=== PATIENT | male | born 1945 | race Caucasian/White ===

== ENCOUNTER → 2017-05-08 | Day surgery (SDC) | payer MEDICARE ==
[~2017-05-08] MED LIST: ALEN70TA5 PO; ASPI-630 PO; ATOR10TA60 PO; AZAT50TA20 PO; CEPH-264 PO; FAMO20TA38 PO; FOLI200T12 PO; HYDR25TA9 PO; INSU100I17 SQ; INSU100V31 SQ; INSU100V8 SQ; IV RINGERS,LACTATED 1000ML 1,000 ML IV SCH; LEVO88TA4 PO; LORA10TA3 PO; METO100T2 PO; PRED-299 PO; PROPOFOL 20 ML IV ONE; TACR1CAP2 PO
--- NOTE | 2017-05-08 11:14 | PDOC1 ---
HISTORY & PHYSICAL H&P Please see [facility]. SAMANTHA HIGUERA MD May 08, 2017 11:14
[2017-05-08 11:33] VITALS: BP 126/58
== END | disposition home or self-care (01) ==
LOC: ENDOS 10:59 → EDSTATUS 11:30
PROVIDERS: ATTEND Internal Medicine Gastroenterology
DX: K21.0 Gastro-esophageal reflux disease with esophagitis (principal); K22.10 Ulcer of esophagus without bleeding; K22.8 Other specified diseases of esophagus; E78.00 Pure hypercholesterolemia, unspecified; I48.91 Unspecified atrial fibrillation; I12.9 Hypertensive chronic kidney disease with stage 1 through stage 4 chronic kidney disease, or unspecified chronic kidney disease; E11.22 Type 2 diabetes mellitus with diabetic chronic kidney disease; N18.9 Chronic kidney disease, unspecified; E03.9 Hypothyroidism, unspecified; Z94.0 Kidney transplant status; Z87.01 Personal history of pneumonia (recurrent); Z86.14 Personal history of Methicillin resistant Staphylococcus aureus infection
CPT/HCPCS: 43235; 82962; J2704

== ENCOUNTER 2017-06-22 04:47 | Inpatient (IN) | payer MEDICARE ==
[2017-06-22] VITALS (17 sets, daily range): BP systolic 66–160; BP diastolic 28–80
[~2017-06-22] VITALS: Ht 188 cm; Wt 168.8 kg
[~2017-06-22 04:47] MED LIST changes: -IV RINGERS,LACTATED 1000ML 1,000 ML IV SCH; -METO100T2 PO; +METO100T7 PO; -PROPOFOL 20 ML IV ONE
[2017-06-22] MEDS ORDERED: ETOMIDATE 20 MG/10 ML VIAL. IV ONE (05:47)
[2017-06-22] MEDS ORDERED: ROCURONIUM 50 MG/5 ML VIAL. ONE (05:48)
[2017-06-22 05:53] LABS: HCO3 ABG 33 mmol/L (21-28); PO2 ABG 244 mmHg (65-108); SAT O2 ABG 99 % (92-99)
[2017-06-22 05:55] LABS: PCO2 ABG 85 mmHg (35-46)
[2017-06-22] MEDS ORDERED: PROPOFOL 50 ML IV ONE (06:15)
[2017-06-22] MEDS: PROPOFOL 100 ML IV PRN (06:30)
--- NOTE | 2017-06-22 06:36 | PHYS DOC ---
Past Medical History Past Medical History: Diabetes-Type II, Hypertension, Other Additional Past Medical Histor: obese, dialysis in past, h/o kidney fail., lymphodema, bilat LL trauma Past Surgical History: Other Additional Past Surgical Histo: leg sx secondary to trauma, kidney transplant Alcohol Use: None Drug Use: None Adult General Chief Complaint Chief Complaint: ALTERED MENTAL STATUS HPI HPI Patient is a 72 year old male who presents to the emergency department unresponsive. Patient was brought by EMS from [facility] after staff found him to be unresponsive. EMS noted that the patient had shallow breathing and started bagging the patient in route. They also administered 4 mg of Narcan to the patient with no effect. The patient is currently unresponsive to deep sternal rub and provides no history. EMS stated that the patient was not on any known narcotic medication per their knowledge. Patient has significant lymphedema and does not have IV access at this time. Patient cardiac rhythm was noted to be atrial fibrillation for which EMS states the patient has a chronic history. Review of Systems Review of Systems Unable to obtain from patient All other systems were reviewed and found to be within normal limits, except as documented in this note. Allergies Allergies Allergies Coded Allergies Type Severity Reaction Last Updated Verified No Known Drug Allergies 05/08/17 No Physical Exam Physical Exam Constitutional: Obtunded, gag reflex intact, receiving assisted ventilations, normotensive. [] HENT: Normocephalic, atraumatic, bilateral external ears normal, oropharynx moist, no oral exudates, nose normal. [] Eyes: Pinpoint pupils, conjunctiva normal, no discharge. [] Neck: Trachea midline, supple, no stridor. [] Cardiovascular: Irregular rhythm, normal rate, no murmur [] Lungs & Thorax: Shallow respirations, rales bilaterally, no wheezes[] Abdomen: Bowel sounds normal, soft, no tenderness, no masses, no pulsatile masses. [] Skin: Warm, dry, no erythema, no rash. [] Extremities: Left tioek-ovh-dnrh amputation, chronic lymphedematous changes in the right lower extremity. [] Neurologic: Obtunded, withdraws slightly to deep painful stimulus. [] Current Patient Data Vital Signs Signs reviewed, significant for respirations of 10 and shallow, patient was afebrile and normotensive Lab Values Laboratory Tests Test 06/22/17 05:04 O2 Saturation 99 % (92-99) Arterial Blood pH 7.20 (7.35-7.45) *L Arterial Blood pCO2 at Patient Temp 85 mmHg (35-46) *H Arterial Blood pO2 at Patient Temp 244 mmHg (65-108) H Arterial Blood HCO3 33 mmol/L (21-28) H Arterial Blood Base Excess 3 mmol/L (-3-3) FiO2 100.0 EKG EKG Rhythm strip interpretation: Heart rate 67, atrial fibrillation, wide QRS complex[] Radiology/Procedures Radiology/Procedures One view AP chest x-ray interpreted by me: Edema in bilateral lung bases, central line in adequate position, ET tube in adequate position KUB: Nasogastric tube in adequate position[] Course & Med Decision Making Course & Med Decision Making Pertinent Labs and Imaging studies reviewed. (See chart for details) Patient had no IV access upon arrival. I placed an intraosseous line into the right humerus for initial access. Patient was intubated as outlined in the procedure note and a central line was placed as outlined in the procedure note. The patient patient's ABG showed evidence of acute hypercapnic respiratory failure. The patient's level of consciousness improved after being placed on the ventilator and patient was placed on a propofol drip for sedation. Patient' s vital signs have stabilized at time of disposition. The patient will be admitted to ICU for further care. I spoke with Dr. Mcgarry who accepted care patient in hospital. A consult was placed to Dr. Amato for ventilator management. Dragon Disclaimer Dragon Disclaimer This electronic medical record was generated, in whole or in part, using a voice recognition dictation system. Central Line Placement Proc Central Line Indication: Vascular access Consent: Consent was not obtained due to the emergent necessity for the procedure. Procedure: The patient was positioned appropriately and the skin over the right internal jugular vein was prepped and draped in a sterile fashion. Local anesthesia was used. Ultrasound guidance utilized. A large bore needle was used to identify the vein. A guide wire was then inserted into the vein through the needle. A triple lumen catheter was then inserted into the vessel over the guide wire using the Seldinger technique. All ports showed good, free flowing blood return and were flushed with saline solution. The catheter was then securely fastened to the skin with sutures and covered with a sterile dressing. A post procedure X-ray was ordered. The patient tolerated the procedure well. Complications: none. [] Intubation Procedure Intub Indication: Respiratory failure Consent: Unable to give consent due to emergent nature. Medications Used: see nursing note Procedure: The patient was placed in the appropriate position. Intubation was performed under direct laryngoscopy with placement of a 7.5 endotracheal tube. Secured at 22 cm at the lip. Initial confirmation of placement included bilateral breath sounds, tube fogging, adequate chest rise, adequate pulse oximetry reading. A chest x-ray to verify correct placement of the tube showed appropriate tube position. The patient tolerated the procedure well. Complications: none. Departure Departure Impression: Primary Impression: Acute respiratory failure Additional Impressions: Pulmonary edema Acute encephalopathy Respiratory acidosis Disposition: ADMITTED INPATIENT Admitting Physician: Jessica Mcgarry Condition: CRITICAL Referrals: BUBBA DOMINIQUE MD (PCP) Problem Qualifiers Primary Impression: Acute respiratory failure Respiratory failure complication: hypoxia and hypercapnia Qualified Codes: J96.01 - Acute respiratory failure with hypoxia; J96.02 - Acute respiratory failure with hypercapnia Additional Impressions: Pulmonary edema Chronicity: acute Qualified Codes: J81.0 - Acute pulmonary edema YURY EVANS MD Jun 22, 2017 06:36
[2017-06-22] MEDS ORDERED: fentaNYL PF VIAL 100 MCG/2 ML VIAL IV PRN (06:45)
[2017-06-22] MEDS ORDERED: IV NORMAL SALINE 1000ML BAG 1,000 ML IV SCH (06:45)
[2017-06-22] MEDS ORDERED: ACETAMINOPHEN 325 MG TABLET. PO PRN (06:45)
[2017-06-22] MEDS ORDERED: ONDANSETRON PF 4 MG/2 ML VIAL. IV PRN (06:45)
--- NOTE | 2017-06-22 07:11 | RAD ---
Portable abdomen, 06/22/2017: History: Check NG tube placement An AP view of the left upper quadrant of the abdomen demonstrates an NG tube extending into the distal body of the stomach. Slightly prominent gas-filled small bowel loops are present in the left midabdomen. This limited exam is otherwise unremarkable. IMPRESSION: The NG tube extends into the body of the stomach.
[2017-06-22] MEDS ORDERED: MIDAZOLAM HCL/PF 2 MG/2 ML VIAL. ONE (07:17)
--- NOTE | 2017-06-22 07:20 | RAD ---
Portable chest, 06/22/2017: History: Check ET tube placement Comparison is made to a study from 06/25/2015. The patient positioning is kyphotic with rotation to the left. An ET tube has been inserted with its tip located approximately 6 cm above the liliya near the thoracic inlet. An NG tube extends into the stomach. A right jugular central venous catheter remains in place extending into the superior vena cava. The heart is mildly enlarged. There is extensive calcific plaquing of the aorta. There is loss of vascular margination with patchy pulmonary infiltrates. There is obscuration of the lateral costophrenic angles bilaterally compatible with pleural fluid. A moderate left apical opacity probably represents pleural fluid. IMPRESSION: 1. Tube positions as described above. 2. Vascular congestion with patchy pulmonary infiltrates most compatible with pulmonary edema. A component of pneumonia cannot be excluded. 3. Bilateral pleural effusions, left greater than right.
[2017-06-22] MEDS ORDERED: MIDAZOLAM HCL/PF 2 MG/2 ML VIAL. IV ONE (07:30)
--- NOTE | 2017-06-22 07:35 | EKG ---
[facility] [address] [place] [address] Test Date: 2017-06-22 Test Time: 06:45:13 Pat Name: JACQUES STUBBS Department: Room: 115 1 Gender: M Craft Superintendent: : 1945 Requested By: YURY EVANS Order Number: [id number] Reading MD: Aneesh Mcfarland MD Measurements Intervals Counselor Rate: 52 P: MN: QRS: -30 QRSD: 130 T: 109 QT: 488 QTc: 456 Interpretive Statements POSSIBLE V-PACING CANNOT RULE OUT AFIB Electronically Signed On 06-26-2017 15:34:16 ZONING ADMINISTRATOR by Aneesh Mcfarland MD
--- NOTE | 2017-06-22 08:07 | RAD ---
CT of the head without contrast, 06/22/2017: History: Altered mental status, hypertension There is mild cerebral atrophy. A small lucency in the superior aspect of left basal ganglia is compatible with a lacunar infarct or prominent perivascular space. The ventricles are within normal limits in size. There is no shift of the midline structures. There is no evidence of acute intracranial hemorrhage or mass effect. IMPRESSION: 1. Small old lacunar infarct in left basal ganglia. 2. Mild cerebral atrophy. 3. No acute intracranial abnormality is detected. PQRS Compliance Statement: One or more of the following individualized dose reduction techniques were utilized for this examination: 1. Automated exposure control 2. Adjustment of the mA and/or kV according to patient size 3. Use of iterative reconstruction technique
[2017-06-22] MEDS ORDERED: NOREPINEPHRIN PREMIX 250 ML IV ONE (08:27)
[2017-06-22] MEDS ORDERED: NOREPINEPHRIN PREMIX 250 ML IV PRN (08:30)
[2017-06-22 09:10] LABS: BASO # 0.1 x10^3/uL (0.0-0.2); BASO % 1 % (0-3); EOS % 0 % (0-3); HEMATOCRIT 32.6 % (39.0-53.0); HEMOGLOBIN 10.4 g/dL (13.0-17.5); LYMPH # 1.2 x10^3/uL (1.0-4.8); LYMPH % 14 % (24-48); MEAN CORPUSCULAR HEMOGLOBIN 33 pg (25-35); MEAN CORPUSCULAR HGB CONC 32 g/dL (31-37); MEAN CORPUSCULAR VOLUME 102 fL (79-100); MONO % 7 % (0-9); NEUT % 78 % (31-73); PLATELET COUNT 326 x10^3/uL (140-400); RED CELL DISTRIBUTION WIDTH 21.5 % (11.5-14.5); WHITE BLOOD COUNT 8.8 x10^3/uL (4.0-11.0)
[2017-06-22 09:19] LABS: CALCIUM 8.7 mg/dL (8.5-10.1); CREATININE 1.6 mg/dL (0.7-1.3); GFR 42.5; POTASSIUM 4.7 mmol/L (3.5-5.1)
[2017-06-22 09:24] LABS: ALBUMIN 1.9 g/dL (3.4-5.0); ALBUMIN/GLOBULIN RATIO 0.7 (1.0-1.7); MAGNESIUM 1.5 mg/dL (1.8-2.4); TOTAL BILIRUBIN 0.5 mg/dL (0.2-1.0); TOTAL PROTEIN 4.7 g/dL (6.4-8.2)
[2017-06-22 09:34] LABS: INR 1.2 (0.8-1.1); PROTHROMBIN TIME PATIENT 14.2 SEC (11.7-14.0)
[2017-06-22 10:24] LABS: CREATINE KINASE 19 U/L (39-308)
[2017-06-22 10:25] LABS: CKMB MASS < 0.5 ng/mL (0.0-3.6)
[2017-06-22] MEDS ORDERED: IV 1/2 NORMAL SALINE 1,000 ML IV ONE (10:45)
[2017-06-22] MEDS ORDERED: PIP/TAZO PER PHARMACY MC PRN (11:00)
--- NOTE | 2017-06-22 11:16 | CONS ---
DATE OF CONSULTATION: ATTENDING PHYSICIAN: Jessica Mcgarry MD REASON FOR CONSULTATION: Respiratory failure. HISTORY OF PRESENT ILLNESS: The patient is a 72-year-old male who has been in a rehab facility. He was previously at [facility] for 6 weeks and was treated for MRSA infection. The patient has history of kidney failure, lymphedema and has been on dialysis in the past. He was brought in by EMS from [facility] after he was found to be unresponsive. The patient was having shallow breathing and he was given Narcan without any effect. He was unresponsive to deep sternal rub. The patient was intubated and post-intubation ABGs showed a pH of 7.20, pCO2 of 85 and a pO2 of 244 on 100% FiO2. He is currently on assist control mode and FiO2 of 50%. Repeat ABGs have been ordered. I have reviewed patient's chest x-ray and it shows evidence of bilateral infiltrates. There is also volume loss in the left upper lobe, which could be due to a mucus plug. The possibility of congestive heart failure versus pneumonia is a consideration. Clinically he appeared to be dry as his sodium was high at 151. He was hypotensive. He required actually 2 liters of IV fluid bolus to raise his blood pressure up and he initially was on 10 mcg of Levophed, but now down to 5 mcg of Levophed. His urine output is still not the best. His BUN is 12 and a creatinine of 1.6. I have been asked to see him for further evaluation. His family is at the bedside including and the daughter. The patient has no history of tobacco use. No prior history of heart problems except for atrial fibrillation. PAST MEDICAL HISTORY: History of diabetes, history of hypertension, history of obesity, history of renal failure and dialysis in the past. History of lymphedema, lower extremity and left knee amputation. PAST SURGICAL HISTORY: As discussed above including kidney transplant. ALLERGIES: None. CURRENT MEDICATIONS: Reviewed as listed in the MRAD including vasopressor. He is not on any antibiotics. REVIEW OF SYSTEMS: Unable to obtain from the patient as he is on the ventilator. SOCIAL HISTORY: Nonsmoker. PHYSICAL EXAMINATION: GENERAL: He is intubated and sedated with Versed. Blood pressure on 5 mcg of Levophed. VITAL SIGNS: Pulse ox 100%. EYES: Sclerae nonicteric. NECK: Supple. LUNGS: With diminished breath sounds bilaterally. CARDIOVASCULAR: Regular rate. ABDOMEN: Soft, obese. EXTREMITIES: There is right lower extremity lymphedema and left knee amputation. LABORATORY DATA: Reviewed. White cell count 8.8, hemoglobin 10.4 and platelets are 326. ABGs as discussed in my history of present illness. BUN 12, creatinine 1.6. Albumin is 1.9. IMPRESSION: 1. Acute hypercapnic respiratory failure secondary to multifactorial etiologies including acute toxic and metabolic encephalopathy, shock and suspected congestive heart failure versus pneumonia. 2. Abnormal chest x-ray with bilateral infiltrates with some volume loss in the left upper lobe. I suspect it could be a combination of congestive heart failure versus pneumonia and may have a mucus plug in the left upper lobe. 3. History of renal transplant and acute kidney injury. 4. History of methicillin-resistant Staphylococcus aureus infection. 5. Hypernatremia, probably related to volume contraction. 6. Severe protein-calorie malnutrition. 7. No significant history of tobacco use. RECOMMENDATIONS: 1. At this time, continue with present assist control mode. Follow ABGs and make necessary adjustments. 2. Obtain echocardiogram to assess for LV function. 3. Continue present Levophed for shock and hold off on IV fluids until we get an echocardiogram to make sure he does not have cardiomyopathy. It could be combination of septic/cardiogenic shock. 4. Obtain noncontrast CT chest to better assess for lung infiltrates. 5. He would require mechanical ventilation for at least 3-4 days. 6. We will initiate antibiotics workup is pending. 7. Stress ulcer prophylaxis and DVT prophylaxis. 8. Discussed with patient's family and discussed with Dr. Chiu. Critical care time 45 minutes. MARKY HUSSEIN MD DR: ROSALIA/miriam JOB#: [id number] / [id number]
[2017-06-22] MEDS ORDERED: VANCOMYCIN 2 GM in IV DEXTROSE 5 %-0.2 % NACL 500 ML IV ONE (11:30)
[2017-06-22] MEDS: CETIRIZINE HCL 10 MG TABLET. PO SCH (12:00)
[2017-06-22] MEDS ORDERED: METOPROLOL TART IMMED RELEASE 50 MG TABLET. PO SCH (12:00)
[2017-06-22] MEDS: ATORVASTATIN CALCIUM 10 MG TABLET. PO SCH (12:00)
[2017-06-22 12:34] LABS: HCO3 ABG 30 mmol/L (21-28); PCO2 ABG 51 mmHg (35-46); PH ABG 7.38 (7.35-7.45); PO2 ABG 84 mmHg (65-108); SAT O2 ABG 97 % (92-99)
[2017-06-22 12:36] LABS: FIO2 ABG 40
--- NOTE | 2017-06-22 12:39 | HP ---
ADMIT DATE: 06/22/2017 CHIEF COMPLAINT: Respiratory failure, mental status changes. HISTORY OF PRESENT ILLNESS: The patient is a 72-year-old gentleman who presented from a detention with mental status changes and shallow breathing. In the Emergency Room here, he was found to be hypercapnic and promptly intubated. The patient's family relates further history as and [id number] are now at bedside. The patient apparently had been at [facility] for renal failure as well as distal leg ulcer, which ultimately led to amputation of his left lower extremity. The acute kidney injury was concerning as patient actually is a renal transplant after crush injury in 2003. Thankfully, he recovered from his kidney injuries, had been at [facility] for quite a while and then was transferred for rehab to [facility] where he has been residing for the past 10-14 days. His family had noted that he was more obtunded, rather lethargic, waking briefly and falling back to sleep. This was especially noticeable on his family visits since last Sunday. Family did not see him yesterday. As far as they know, no fevers, cough or other symptoms were noted over the past week. 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 FAMILY HISTORY: No family history of renal disease. Both parents with heart failure in old age. SOCIAL HISTORY: Lives with his family. He never smoked. No toxic habits. ALLERGIES: No known drug allergies. MEDICATIONS: MAR reconciled with home medications. REVIEW OF SYSTEMS: Unable to obtain as the patient is intubated. PHYSICAL EXAMINATION: VITAL SIGNS: From today show a blood pressure of 124/83, heart rate of 60, respiratory rate at 15. He is afebrile. GENERAL: This is a massively obese 72-year-old gentleman, sedated, intubated. Eyes are open. No response to verbal input or following commands. HEENT: No scleral icterus is noted. He is orally intubated. LUNGS: Clear anteriorly. HEART: Has regular rate and rhythm. ABDOMEN: Obese. EXTREMITIES: Show BKA. Left chronic venous stasis changes with 1+ pitting edema on the right. SKIN: Very dry throughout with some signs of eczema. LABORATORY DATA: CBC with a WBC of 8.8, hemoglobin 10.4, MCV of 102, platelets of 326. Chemistries with a BUN and creatinine of 12 and 1.6. Sodium at 151, chloride at 113, potassium 4.7. LFTs within normal limits. Total protein at 4.7, albumin 1.9. ProBNP 12,128. Coags within normal. IMAGING STUDIES: Chest x-ray shows vascular congestion with patchy pulmonary infiltrates, most compatible with pulmonary edema. Component of pneumonia cannot be excluded. Bilateral pleural effusions, left greater than right. ASSESSMENT AND PLAN: The patient is a 72-year-old gentleman status post kidney transplant and morbid obesity and resultant diabetes, who presents with respiratory failure, acute on hypercarbic. This appears to be a CHF by chest x-ray and labs, although pneumonia cannot be excluded. Case was discussed with Dr. Amato. We will obtain additional studies including CT of the chest and echocardiogram. Cardiology will be involved. He apparently had no prior history of heart issues. The patient is also noted to be in AFib at this time. Rate is controlled. Diabetes will be monitored on insulin sliding scale. A decreased dose of Lantus has been restarted. He will receive a customized insulin sliding scale given his high insulin need. His creatinine currently I suspect is at his baseline given a transplant situation. We will monitor closely. Nephrology will be involved, especially with his electrolyte derangements, which appear to be potentially secondary to dehydration, although fluid resuscitation is difficult given his obvious picture of CHF. SHAYY MONET MD DR: WILFREDO/miriam JOB#: [id number] / [id number] JADIEL
[2017-06-22 13:00] LABS: ANISOCYTOSIS PRESENT; PLT ESTIMATE ADEQUATE (ADEQUATE)
[2017-06-22] MEDS: MIDAZOLAM 100MG/100ML PREMIX 100 ML IV PRN ×2 (13:00→23:38)
[2017-06-22] MEDS: IV 1/2 NORMAL SALINE 1,000 ML IV SCH ×2 (13:03→23:39)
--- NOTE | 2017-06-22 13:29 | CARD ---
APPROVED REPORT EXAM: Two-dimensional and M-mode echocardiogram with Doppler and color Doppler. Other Information Quality : Fair INDICATION Congestive Heart Failure RISK FACTORS Obesity 2D DIMENSIONS RVDd3.5 (2.9-3.5cm)Left Atrium(2D)4.5 (1.6-4.0cm) IVSd1.4 (0.7-1.1cm)Aortic Root(2D)3.3 (2.0-3.7cm) LVDd4.3 (3.9-5.9cm)LVOT Diameter2.3 (1.8-2.4cm) PWd1.5 (0.7-1.1cm)LVDs2.9 (2.5-4.0cm) FS (%) 32.6 %SV51.3 ml LVEF(%)60.0 (>50%) Aortic Valve AoV Peak Rickey.103.0cm/Juan Peak GR.4.2mmHg AI P 1/2 Gkhw020up Mitral Valve MV E Vlaahgzf766.2cm/sMV DECEL [id number] TDI Lateral E' P. V6.31cm/sMedial E' P. V4.83cm/s E/Lateral E'18.9E/Medial E'24.7 Tricuspid Valve TR P. Wfjgzcdk861kp/sRAP [id number] TR Peak Gr.45uqQnJVKH23xrMu Pulmonary Vein S1 Xiqygpwj00.6cm/sS2 Wlvnroet81.78cm/s D2 Ptbxrnjd18.8cm/s LEFT VENTRICLE The left ventricle is normal size. There is normal left ventricular wall thickness. The left ventricu lar systolic function is normal. The Ejection Fraction is 55-60%. There is normal LV segmental wall m otion. RIGHT VENTRICLE The right ventricle is normal size. The right ventricular systolic function is normal. ATRIA The left atrium is mildly dilated. The right atrium is mildly dilated. The interatrial septum is inta ct with no evidence for an atrial septal defect or patent foramen ovale as noted on 2-D or Doppler im aging. AORTIC VALVE The aortic valve is calcified but opens well. Doppler and Color Flow revealed moderate aortic regurgi tation. There is no significant aortic valvular stenosis. MITRAL VALVE The mitral valve is calcified but opens well. There is no evidence of mitral valve prolapse. There is no mitral valve stenosis. Doppler and Color-flow revealed trace mitral regurgitation. TRICUSPID VALVE The tricuspid valve is normal in structure and function. Doppler and Color Flow revealed trace to mil d tricuspid regurgitation. There is moderate pulmonary hypertension. The PA pressure was estimated at 52 mmHg. There is no tricuspid valve stenosis. PULMONIC VALVE The pulmonary valve is normal in structure and function. Doppler and Color Flow revealed no pulmonic valvular regurgitation. There is no pulmonic valvular stenosis. GREAT VESSELS The aortic root is normal in size. The ascending aorta is normal in size. The IVC is dilated and masoud apses <50% with inspiration. PERICARDIAL EFFUSION There is moderate left pleural effusion. There is no evidence of significant pericardial effusion. Critical Notification Critical Value: No <Conclusion> The left ventricular systolic function is normal. The Ejection Fraction is 55-60%. There is normal LV segmental wall motion. Moderate aortic regurgitation. Trace mitral regurgitation. Mild tricuspid regurgitation. The PA pressure was estimated at 52 mmHg. There is no evidence of significant pericardial effusion.
[2017-06-22] MEDS: PIPERACILLIN/TAZO IV Push 4.5 GM VIAL. IVP SCH ×2 (13:46→18:26)
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
[2017-06-22] MEDS: VANCOMYCIN PER PHARMACY MC PRN (14:17)
[2017-06-22] MEDS ORDERED: ONDA4TAB11 PO (15:08)
[2017-06-22] MEDS ORDERED: PRED-220 PO (15:08)
[2017-06-22] MEDS ORDERED: DOCU100C28 PO (15:08)
[2017-06-22] MEDS ORDERED: PANT40TA5 PO (15:08)
[2017-06-22] MEDS ORDERED: HALO0.5T PO (15:08)
[2017-06-22] MEDS ORDERED: TACR0.5C2 PO (15:08)
[2017-06-22] MEDS ORDERED: AZAT50TA PO (15:08)
[2017-06-22] MEDS ORDERED: THIA100T8 PO (15:08)
[2017-06-22] MEDS ORDERED: FERR-26 PO (15:08)
[2017-06-22] MEDS ORDERED: ACET325T9 PO (15:08)
[2017-06-22] MEDS ORDERED: METO50TA6 PO (15:08)
[2017-06-22] MEDS ORDERED: ACET500T68 PO (15:08)
[2017-06-22] MEDS ORDERED: AMLO5TAB2 PO (15:08)
[2017-06-22] MEDS ORDERED: NYST15CR2 TP (15:08)
--- NOTE | 2017-06-22 17:25 | RAD ---
CT chest without contrast Indication: Pneumonia versus congestive heart failure. Respiratory failure. Technique: CT chest without IV contrast with multiplanar reformats. Comparison: None Findings: Endotracheal tube is noted with its tip at T2 vertebral body. NG tube is noted with its tip in the distal stomach. Right-sided central venous catheter noted with its tip in the SVC. Heart is mildly enlarged in size. No pericardial effusion. Coronary artery calcifications suggesting coronary artery disease. There is diffuse atherosclerotic disease of the thoracic aorta and descending aorta with plaque burden at the origin of the arch vessels. No axillary or mediastinal adenopathy. Calcified right hilar lymph nodes noted. Moderate bilateral pleural effusions with passive atelectasis of the just lung parenchyma. Nodular high attenuating densities are seen in the bilateral lower lobes. Noncontrast appearance of the visualized liver, spleen, pancreas is within normal limits. No suspicious bony lesions. Impression: 1. Moderate bilateral pleural effusions with passive atelectasis of the adjacent lung parenchymal. Underlying pneumonia not ruled out. 2. No interlobular septal thickening in the aerated lungs to suggest pulmonary edema. 3. Nodular high attenuation in the bilateral lower lobes may represent parenchymal calcifications or aspirated oral contrast from previous studies. PQRS Compliance Statement: One or more of the following individualized dose reduction techniques were utilized for this examination: 1. Automated exposure control 2. Adjustment of the mA and/or kV according to patient size 3. Use of iterative reconstruction technique
[2017-06-22] MEDS: predniSONE 20 MG TABLET PO SCH (18:24)
[2017-06-22] MEDS: TACROLIMUS 1 MG CAPSULE PO SCH ×2 (18:24→20:43)
[2017-06-22] MEDS: azaTHIOprine 50 MG TABLET PO SCH (18:25)
[2017-06-22] MEDS: ASPIRIN CHEWABLE 81 MG TABLET. PO SCH (18:25)
[2017-06-22] MEDS: LEVOTHYROXINE 88 MCG TABLET PO SCH (18:26)
[2017-06-22] MEDS: FAMOTIDINE 20 MG TABLET. PO SCH (20:43)
[2017-06-22] MEDS ORDERED: ALBUMIN HUMAN 25% 200 ML IV SCH (21:00)
[2017-06-22] MEDS ORDERED: INSULIN DETEMIR 300 UNITS/3 ML INSULN.PEN. SQ SCH (21:00)
[2017-06-22] MEDS: METOPROLOL TART IMMED RELEASE 50 MG TABLET. PO SCH (21:00)
[2017-06-22] MEDS ORDERED: INSULIN DETEMIR 300 UNITS/3 ML INSULN.PEN. SQ ONE (21:15)
[2017-06-23] VITALS (24 sets, daily range): BP systolic 138–177; BP diastolic 41–71
[2017-06-23] MEDS: PIPERACILLIN/TAZO IV Push 4.5 GM VIAL. IVP SCH ×5 (00:29→23:51)
[2017-06-23] MEDS ORDERED: ALBUMIN HUMAN 25% 200 ML IV SCH (03:00)
[2017-06-23] MEDS: ALBUMIN HUMAN 25% 200 ML IV SCH ×5 (05:29→23:52)
[2017-06-23 05:48] LABS: BASO % 1 % (0-3); EOS % 0 % (0-3); HEMATOCRIT 27.1 % (39.0-53.0); HEMOGLOBIN 8.8 g/dL (13.0-17.5); LYMPH # 0.5 x10^3/uL (1.0-4.8); LYMPH % 7 % (24-48); MEAN CORPUSCULAR HEMOGLOBIN 32 pg (25-35); MEAN CORPUSCULAR HGB CONC 33 g/dL (31-37); MEAN CORPUSCULAR VOLUME 98 fL (79-100); MONO % 4 % (0-9); NEUT % 89 % (31-73); PLATELET COUNT 185 x10^3/uL (140-400); RED BLOOD COUNT 2.78 x10^6/uL (4.30-5.70); RED CELL DISTRIBUTION WIDTH 20.6 % (11.5-14.5); WHITE BLOOD COUNT 7.9 x10^3/uL (4.0-11.0)
[2017-06-23 06:24] LABS: CALCIUM 8.5 mg/dL (8.5-10.1); CREATININE 1.9 mg/dL (0.7-1.3); GFR 34.8; POTASSIUM 4.3 mmol/L (3.5-5.1)
[2017-06-23 07:54] LABS: HCO3 ABG 27 mmol/L (21-28); PCO2 ABG 42 mmHg (35-46); PH ABG 7.42 (7.35-7.45); PO2 ABG 86 mmHg (65-108); SAT O2 ABG 97 % (92-99)
[2017-06-23] MEDS: IV 1/2 NORMAL SALINE 1,000 ML IV SCH (08:21)
[2017-06-23] MEDS: LEVOTHYROXINE 88 MCG TABLET PO SCH (08:22)
[2017-06-23 08:43] LABS: FIO2 ABG 40
[2017-06-23] MEDS: ASPIRIN CHEWABLE 81 MG TABLET. PO SCH (09:38)
[2017-06-23] MEDS: CETIRIZINE HCL 10 MG TABLET. PO SCH (09:38)
[2017-06-23] MEDS: ATORVASTATIN CALCIUM 10 MG TABLET. PO SCH (09:38)
[2017-06-23] MEDS: TACROLIMUS 1 MG CAPSULE PO SCH ×2 (09:38→21:01)
[2017-06-23] MEDS: METOPROLOL TART IMMED RELEASE 50 MG TABLET. PO SCH ×2 (09:39→21:00)
[2017-06-23] MEDS: predniSONE 20 MG TABLET PO SCH (09:40)
[2017-06-23] MEDS: azaTHIOprine 50 MG TABLET PO SCH (09:40)
--- NOTE | 2017-06-23 10:15 | PDOC ---
PROGRESS NOTES Chief Complaint Chief Complaint Acute hypercarbic, hypoxic respir failure ASSESSMENT AND PLAN: 1. CHF exacerbation: no previous hx, poss driven by (new) afib. echo on 06/22 with normal EF, pAP 52. CT with bilat effusions, suspected aspir PNA. remains intubated. d/w Dr Amato 2. Afib: rate controlled. cardiology following. apparently, family unaware of existing hx; per cardiology, pt has declined OAC in past 3. Aspir PNA: bilat with PO contrast in lower lungs. on broad spectrum Abx 4. CKD: s/p renal transplant. essentially stable. nephrology consulted 5. Immunocompromise: on mult immunosuppressants post renal transplant 6. Hypernatremia: improving. suspected 2/2 intravasc contraction with thirdspacing. no IVF given CHF. monitor 7. DM2: currently tight control with 1/2 levimir dose. monitor with ISS 8. BEVERLY: on CPAP at home, not in NH over past 2 weeks 9. Nutrition: OG tube feeds History of Present Illness History of Present Illness intubated, sedated Vitals Vitals Vital Signs Date Time Temp Pulse Resp B/P (MAP) Pulse Ox O2 Delivery O2 Flow Rate FiO2 06/23/17 09:39 64 136/44 06/23/17 08:55 100 Ventilator 06/23/17 04:00 98.0 98.0 06/22/17 16:00 16 Physical Exam General: Other (Sedated) Heart: Other (AFIB rate controlled; distant heart sounds) Lungs: Other (decreased BS anteriorly) Abdomen: Soft, Other (obese) Extremities: Other ( s/p L AKA) Skin: Other (venous dermatitis) Labs LABS Laboratory Tests Test 06/22/17 12:05 06/22/17 20:42 06/23/17 05:15 06/23/17 06:51 O2 Saturation 97 % (92-99) 97 % (92-99) Arterial Blood pH 7.38 (7.35-7.45) 7.42 (7.35-7.45) Arterial Blood pCO2 at Patient Temp 51 mmHg (35-46) 42 mmHg (35-46) Arterial Blood pO2 at Patient Temp 84 mmHg (65-108) 86 mmHg (65-108) Arterial Blood HCO3 30 mmol/L (21-28) 27 mmol/L (21-28) Arterial Blood Base Excess 4 mmol/L (-3-3) 2 mmol/L (-3-3) FiO2 40 40 Glucose (Fingerstick) 107 mg/dL (70-99) White Blood Count 7.9 x10^3/uL (4.0-11.0) Red Blood Count 2.78 x10^6/uL (4.30-5.70) Hemoglobin 8.8 g/dL (13.0-17.5) Hematocrit 27.1 % (39.0-53.0) Mean Corpuscular Volume 98 fL (79-100) Mean Corpuscular Hemoglobin 32 pg (25-35) Mean Corpuscular Hemoglobin Concent 33 g/dL (31-37) Red Cell Distribution Width 20.6 % (11.5-14.5) Platelet Count 185 x10^3/uL (140-400) Neutrophils (%) (Auto) 89 % (31-73) Lymphocytes (%) (Auto) 7 % (24-48) Monocytes (%) (Auto) 4 % (0-9) Eosinophils (%) (Auto) 0 % (0-3) Basophils (%) (Auto) 1 % (0-3) Neutrophils # (Auto) 7.0 x10^3uL (1.8-7.7) Lymphocytes # (Auto) 0.5 x10^3/uL (1.0-4.8) Monocytes # (Auto) 0.3 x10^3/uL (0.0-1.1) Eosinophils # (Auto) 0.0 x10^3/uL (0.0-0.7) Basophils # (Auto) 0.0 x10^3/uL (0.0-0.2) Sodium Level 147 mmol/L (136-145) Potassium Level 4.3 mmol/L (3.5-5.1) Chloride Level 110 mmol/L (98-107) Carbon Dioxide Level 27 mmol/L (21-32) Anion Gap 10 (6-14) Blood Urea Nitrogen 15 mg/dL (8-26) Creatinine 1.9 mg/dL (0.7-1.3) Estimated GFR (Cockcroft-Gault) 34.8 Glucose Level 125 mg/dL (70-99) Calcium Level 8.5 mg/dL (8.5-10.1) Nutrition Consultation Dietary Evaluation: Recommendations by RD: Increase Calorie Intake, Add supplement feedings Comments: Diabetisource AC@10 ml/hr, increase 10 ml/hr to goal rate 60 ml/hr w/75 ml water flushes q4 hrs - watching renal labs Expected Outcomes/Goals: TF tolerated at goal rate and providing > 60% est needs Interpretation of weight loss: >7.5% in 3 months Malnutrition Findings: Food and Nutrition Intake (Mod: <75% est energy req 7days Malnutrition related to morbid: BMI>or equal to 40 Malnutrition related to morbid: Yes Weight Status: Morbidly Obese SHAYY MONET MD Jun 23, 2017 10:15
--- NOTE | 2017-06-23 10:23 | RAD ---
PORTABLE CHEST 1V Clinical Indication: Respiratory failure Comparison: June 22, 2017 Technique: AP portable supine view of the chest is obtained. Findings: Distal tip of ET tube remains near the thoracic inlet. Right IJ central line and visualized gastric tube appear similar in position. Blunting of both costophrenic angles consistent with pleural fluid appears similar to the previous exam. Bibasilar and perihilar opacities are also similar. No pneumothorax is seen. Cardia megaly appears stable. Aortic knob calcification redemonstrated. Visualized osseous structures and overlying soft tissues demonstrate no acute interval change. IMPRESSION: Bilateral pleural effusions and opacities appear stable from yesterday's exam.
--- NOTE | 2017-06-23 10:34 | PDOC ---
PULMONARY PROGRESS NOTES Subjective remains intubated/sedated Vitals Vital Signs Date Time Temp Pulse Resp B/P (MAP) Pulse Ox O2 Delivery O2 Flow Rate FiO2 06/23/17 10:00 72 16 138/46 (76) 100 Ventilator 06/23/17 08:00 97.7 97.7 Lungs: Other (decreased BS anteriorly) Cardiovascular: S1 Abdomen: Soft, Other (obese) Extremities: Other (right lymphedema, left BKA) Labs Laboratory Tests Test 06/22/17 05:04 06/22/17 08:35 06/22/17 08:40 06/22/17 12:05 O2 Saturation 99 % (92-99) 97 % (92-99) Arterial Blood pH 7.20 (7.35-7.45) 7.38 (7.35-7.45) Arterial Blood pCO2 at Patient Temp 85 mmHg (35-46) 51 mmHg (35-46) Arterial Blood pO2 at Patient Temp 244 mmHg (65-108) 84 mmHg (65-108) Arterial Blood HCO3 33 mmol/L (21-28) 30 mmol/L (21-28) Arterial Blood Base Excess 3 mmol/L (-3-3) 4 mmol/L (-3-3) FiO2 100.0 40 Nasal Screen MRSA (PCR) Negative (Negative) White Blood Count 8.8 x10^3/uL (4.0-11.0) Red Blood Count 3.20 x10^6/uL (4.30-5.70) Hemoglobin 10.4 g/dL (13.0-17.5) Hematocrit 32.6 % (39.0-53.0) Mean Corpuscular Volume 102 fL (79-100) Mean Corpuscular Hemoglobin 33 pg (25-35) Mean Corpuscular Hemoglobin Concent 32 g/dL (31-37) Red Cell Distribution Width 21.5 % (11.5-14.5) Platelet Count 326 x10^3/uL (140-400) Neutrophils (%) (Auto) 78 % (31-73) Lymphocytes (%) (Auto) 14 % (24-48) Monocytes (%) (Auto) 7 % (0-9) Eosinophils (%) (Auto) 0 % (0-3) Basophils (%) (Auto) 1 % (0-3) Neutrophils # (Auto) 6.8 x10^3uL (1.8-7.7) Lymphocytes # (Auto) 1.2 x10^3/uL (1.0-4.8) Monocytes # (Auto) 0.6 x10^3/uL (0.0-1.1) Eosinophils # (Auto) 0.0 x10^3/uL (0.0-0.7) Basophils # (Auto) 0.1 x10^3/uL (0.0-0.2) Segmented Neutrophils % 80 % (35-66) Band Neutrophils % 1 % (0-9) Lymphocytes % 9 % (24-48) Monocytes % 6 % (0-10) Myelocytes % 4 % (0-0) Platelet Estimate Adequate (ADEQUATE) Basophilic Stippling Present Anisocytosis Present Prothrombin Time 14.2 SEC (11.7-14.0) Prothromb Time International Ratio 1.2 (0.8-1.1) Activated Partial Thromboplast Time 37 SEC (24-38) Sodium Level 151 mmol/L (136-145) Potassium Level 4.7 mmol/L (3.5-5.1) Chloride Level 113 mmol/L (98-107) Carbon Dioxide Level 31 mmol/L (21-32) Anion Gap 7 (6-14) Blood Urea Nitrogen 12 mg/dL (8-26) Creatinine 1.6 mg/dL (0.7-1.3) Estimated GFR (Cockcroft-Gault) 42.5 BUN/Creatinine Ratio 8 (6-20) Glucose Level 120 mg/dL (70-99) Lactic Acid Level 1.7 mmol/L (0.4-2.0) Calcium Level 8.7 mg/dL (8.5-10.1) Magnesium Level 1.5 mg/dL (1.8-2.4) Total Bilirubin 0.5 mg/dL (0.2-1.0) Aspartate Amino Transf (AST/SGOT) 34 U/L (15-37) Alanine Aminotransferase (ALT/SGPT) 16 U/L (16-63) Alkaline Phosphatase 118 U/L (46-116) Creatine Kinase 19 U/L (39-308) Creatine Kinase MB (Mass) < 0.5 ng/mL (0.0-3.6) Creatine Kinase MB Relative Index % (0-4) Troponin I Quantitative < 0.017 ng/mL (0.000-0.055) BA-Dnw-E-Type Natriuretic Peptide 27296 pg/mL (0-124) Total Protein 4.7 g/dL (6.4-8.2) Albumin 1.9 g/dL (3.4-5.0) Albumin/Globulin Ratio 0.7 (1.0-1.7) Test 06/22/17 20:42 06/23/17 05:15 06/23/17 06:51 Glucose (Fingerstick) 107 mg/dL (70-99) White Blood Count 7.9 x10^3/uL (4.0-11.0) Red Blood Count 2.78 x10^6/uL (4.30-5.70) Hemoglobin 8.8 g/dL (13.0-17.5) Hematocrit 27.1 % (39.0-53.0) Mean Corpuscular Volume 98 fL (79-100) Mean Corpuscular Hemoglobin 32 pg (25-35) Mean Corpuscular Hemoglobin Concent 33 g/dL (31-37) Red Cell Distribution Width 20.6 % (11.5-14.5) Platelet Count 185 x10^3/uL (140-400) Neutrophils (%) (Auto) 89 % (31-73) Lymphocytes (%) (Auto) 7 % (24-48) Monocytes (%) (Auto) 4 % (0-9) Eosinophils (%) (Auto) 0 % (0-3) Basophils (%) (Auto) 1 % (0-3) Neutrophils # (Auto) 7.0 x10^3uL (1.8-7.7) Lymphocytes # (Auto) 0.5 x10^3/uL (1.0-4.8) Monocytes # (Auto) 0.3 x10^3/uL (0.0-1.1) Eosinophils # (Auto) 0.0 x10^3/uL (0.0-0.7) Basophils # (Auto) 0.0 x10^3/uL (0.0-0.2) Sodium Level 147 mmol/L (136-145) Potassium Level 4.3 mmol/L (3.5-5.1) Chloride Level 110 mmol/L (98-107) Carbon Dioxide Level 27 mmol/L (21-32) Anion Gap 10 (6-14) Blood Urea Nitrogen 15 mg/dL (8-26) Creatinine 1.9 mg/dL (0.7-1.3) Estimated GFR (Cockcroft-Gault) 34.8 Glucose Level 125 mg/dL (70-99) Calcium Level 8.5 mg/dL (8.5-10.1) O2 Saturation 97 % (92-99) Arterial Blood pH 7.42 (7.35-7.45) Arterial Blood pCO2 at Patient Temp 42 mmHg (35-46) Arterial Blood pO2 at Patient Temp 86 mmHg (65-108) Arterial Blood HCO3 27 mmol/L (21-28) Arterial Blood Base Excess 2 mmol/L (-3-3) FiO2 40 Laboratory Tests Test 06/22/17 12:05 06/22/17 20:42 06/23/17 05:15 06/23/17 06:51 O2 Saturation 97 % (92-99) 97 % (92-99) Arterial Blood pH 7.38 (7.35-7.45) 7.42 (7.35-7.45) Arterial Blood pCO2 at Patient Temp 51 mmHg (35-46) 42 mmHg (35-46) Arterial Blood pO2 at Patient Temp 84 mmHg (65-108) 86 mmHg (65-108) Arterial Blood HCO3 30 mmol/L (21-28) 27 mmol/L (21-28) Arterial Blood Base Excess 4 mmol/L (-3-3) 2 mmol/L (-3-3) FiO2 40 40 Glucose (Fingerstick) 107 mg/dL (70-99) White Blood Count 7.9 x10^3/uL (4.0-11.0) Red Blood Count 2.78 x10^6/uL (4.30-5.70) Hemoglobin 8.8 g/dL (13.0-17.5) Hematocrit 27.1 % (39.0-53.0) Mean Corpuscular Volume 98 fL (79-100) Mean Corpuscular Hemoglobin 32 pg (25-35) Mean Corpuscular Hemoglobin Concent 33 g/dL (31-37) Red Cell Distribution Width 20.6 % (11.5-14.5) Platelet Count 185 x10^3/uL (140-400) Neutrophils (%) (Auto) 89 % (31-73) Lymphocytes (%) (Auto) 7 % (24-48) Monocytes (%) (Auto) 4 % (0-9) Eosinophils (%) (Auto) 0 % (0-3) Basophils (%) (Auto) 1 % (0-3) Neutrophils # (Auto) 7.0 x10^3uL (1.8-7.7) Lymphocytes # (Auto) 0.5 x10^3/uL (1.0-4.8) Monocytes # (Auto) 0.3 x10^3/uL (0.0-1.1) Eosinophils # (Auto) 0.0 x10^3/uL (0.0-0.7) Basophils # (Auto) 0.0 x10^3/uL (0.0-0.2) Sodium Level 147 mmol/L (136-145) Potassium Level 4.3 mmol/L (3.5-5.1) Chloride Level 110 mmol/L (98-107) Carbon Dioxide Level 27 mmol/L (21-32) Anion Gap 10 (6-14) Blood Urea Nitrogen 15 mg/dL (8-26) Creatinine 1.9 mg/dL (0.7-1.3) Estimated GFR (Cockcroft-Gault) 34.8 Glucose Level 125 mg/dL (70-99) Calcium Level 8.5 mg/dL (8.5-10.1) Medications Active Scripts Medications Dose Route/Sig Max Daily Dose Days Date Category Amlodipine Besylate 5 Mg Tablet 10 Mg PO DAILY 06/22/17 Reported Azathioprine 50 Mg Tablet 4 Tab PO DAILY 06/22/17 Reported Docusate Sodium 100 Mg Capsule 1 Cap PO TID PRN PRN 06/22/17 Reported Ferrous Sulfate 325 Mg Tablet 1 Tab PO BIDAC 06/22/17 Reported Ondansetron Hcl 4 Mg Tablet 1 Tab PO PRN Q8HRS PRN 06/22/17 Reported Prednisone 10 Mg Tablet 5 Mg PO DAILY 06/22/17 Reported Thiamine Hcl 100 Mg Tablet 100 Mg PO 06/22/17 Reported Nystatin-Triamcinolone Cream (Nystatin/Triamcin) 15 Gm Cream..g. 1 Alexis TP BID 06/22/17 Reported Pantoprazole Sodium 40 Mg Tablet.dr 1 Tab PO DAILY 06/22/17 Reported Tacrolimus 0.5 Mg Capsule 0.5 Mg PO DAILY 06/22/17 Reported Tylenol (Acetaminophen) 325 Mg Tablet 1 Tab PO PRN Q6HRS PRN 06/22/17 Reported Haloperidol 0.5 Mg Tablet 0.25 Mg PO PRN Q8HRS PRN 06/22/17 Reported Metoprolol Tartrate 50 Mg Tablet 3 Tab PO BID 06/22/17 Reported Keflex (Cephalexin) 500 Mg Capsule 500 Mg PO QID 5 06/30/15 Rx Novolog Flexpen (Insulin Aspart) 100 Unit/1 Ml Insuln.pen 22 Unit SQ AC SUPPER 06/26/15 Reported Novolog Flexpen (Insulin Aspart) 100 Unit/1 Ml Insuln.pen 18 Unit SQ AC LUNCH 06/26/15 Reported Novolog Flexpen (Insulin Aspart) 100 Unit/1 Ml Insuln.pen 10 Unit SQ AC BREAKFAST 06/26/15 Reported Levothyroxine Sodium 88 Mcg Tablet 1 Tab PO DAILY 06/24/15 Reported Atorvastatin Calcium 10 Mg Tablet 1 Tab PO DAILY 06/24/15 Reported Loratadine 10 Mg Tablet 1 Tab PO DAILY 06/24/15 Reported Hydrochlorothiazide Tablet (Hydrochlorothiazide) 25 Mg Tablet 25 Mg PO DAILY 06/24/15 Reported Pepcid Ac (Famotidine) 20 Mg Tablet 20 Mg PO HS 06/24/15 Reported Tacrolimus 1 Mg Capsule 1 Mg PO BID 06/24/15 Reported Men's Multivitamin Gummies (Folic Acid/Multivit-Minerals) 200 Mcg Tab.chew 200 Mcg PO 06/24/15 Reported Aspirin 81 Mg Tab.chew 1 Tab PO DAILY 06/24/15 Reported Lantus (Insulin Glargine,Hum.rec.anlog) 100 Unit/1 Ml Vial 70 Unit SQ QHS 06/24/15 Reported Alendronate Sodium 70 Mg Tablet 70 Mg PO WEEKLY 06/24/15 Reported Impression . 1. Acute hypercapnic respiratory failure secondary to multifactorial etiologies including acute toxic and metabolic encephalopathy, shock , less likely pneumonia / CHF 2. Abnormal ct chest with moderate effusions/ some aspirated gastro graffin 3. History of renal transplant and acute kidney injury. 4. History of methicillin-resistant Staphylococcus aureus infection. 5. Hypernatremia, related to volume contraction. 6. Severe protein-calorie malnutrition. 7. No significant history of tobacco use. Plan . 1. At this time, continue with present assist control mode. Follow ABGs and make necessary adjustments. 2. echocardiogram with moderate AI and secondary pulmonary HTN/ Normal EF 3. wean off Levophed / s/p IV fluids 4. dc sedation and once awake, CPAP trial 5. improve nutritional status 6. antibiotics 7. Stress ulcer prophylaxis and DVT prophylaxis. 8. Discussed with Dr. Chiu./ out of school hours care worker time 25 minutes. MARKY HUSSEIN MD Jun 23, 2017 10:34
[2017-06-23] MEDS ORDERED: VANCOMYCIN 2 GM in IV DEXTROSE 5 %-0.2 % NACL 500 ML IV SCH (13:00)
[2017-06-23] MEDS: VANCOMYCIN 2 GM in IV DEXTROSE 5 %-0.45 % NACL 500 ML IV SCH (13:16)
--- NOTE | 2017-06-23 14:26 | PDOC2 ---
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 Left AKA MEDICATIONS: Home list of medications were reviewed. FAMILY HISTORY: Negative for known kidney problems other than kidney donation by one of his sons. SOCIAL HISTORY: , lived with his ; lately in [place]. Nonsmoker and nondrinker currently. No alcohol or drug use per se. Endocrine: Osteoporosis Past Surgical History Past Surgical History: Other Family History Family History: Family History Unknown Social History ALCOHOL: none Drugs: None Lives: Shelter Current Problem List Problem List Problems Medical Problems: (1) Acute encephalopathy Status: Acute (2) Pulmonary edema Status: Acute (3) Respiratory acidosis Status: Acute Current Medications Current Medications Current Medications Etomidate (Amidate) 20 mg STK-MED ONCE IV ; Start 06/22/17 at 05:47; Stop at 05:48; Status DC Rocuronium [place] (Zemuron) 50 mg STK-MED ONCE .ROUTE ; Start 06/22/17 at 05:48 ; Stop 06/22/17 at 05:49; Status DC Propofol 50 ml @ As Directed STK-MED ONCE IV ; Start 06/22/17 at 06:15; Stop at 06:16; Status DC Propofol 100 ml @ 0 mls/hr CONT PRN IV SEE I/O RECORD Last administered on 06/22 06:30; Start 06/22/17 at 06:30 Ondansetron HCl (Zofran) 4 mg PRN Q8HRS PRN IV NAUSEA/VOMITING; Start 06/22/17 at 06:45; Stop 06/23/17 at 06:44; Status DC Fentanyl Citrate (Fentanyl 2ml Vial) 50 mcg PRN Q1HR PRN IV PAIN Last administered on 06/22/17 07:04; Start 06/22/17 at 06:45; Stop 06/23/17 at 06:44 ; Status DC Sodium Chloride 1,000 ml @ 75 mls/hr [id number] IV ; Start 06/22/17 at 06:45; Stop 06/22/17 at 19:47; Status DC Acetaminophen (Tylenol) 650 mg PRN Q4HRS PRN PO FEVER; Start 06/22/17 at 06:45 ; Stop 06/23/17 at 06:44; Status DC Midazolam HCl (Versed) 2 mg STK-MED ONCE .ROUTE ; Start 06/22/17 at 07:17; Stop 06/22/17 at 07:18; Status DC Midazolam HCl 100 ml @ 0 mls/hr CONT PRN IV SEE I/O RECORD Last administered on 06/22/17 23:38; Start 06/22/17 at 07:30 Midazolam HCl (Versed) 2 mg 1X ONCE IV Last administered on 06/22/17 07:30; Start 06/22/17 at 07:30; Stop 06/22/17 at 07:31; Status DC Norepinephrine Bitartrate 250 ml @ As Directed STK-MED ONCE IV ; Start at 08:27; Stop 06/22/17 at 08:28; Status DC Norepinephrine Bitartrate 250 ml @ 0 mls/hr CONT PRN IV SEE I/O RECORD Last administered on 06/22/17 13:02; Start 06/22/17 at 08:30 Sodium Chloride 1,000 ml @ 125 mls/hr Q8H IV Last administered on 06/23/17 08 :21; Start 06/22/17 at 11:00 Sodium Chloride 1,000 ml @ 999 mls/hr 1X ONCE IV Last administered on 14:32; Start 06/22/17 at 10:45; Stop 06/22/17 at 11:45; Status DC Vancomycin HCl (Vanco Per Pharmacy) 1 each PRN DAILY PRN MC SEE COMMENTS Last administered on 06/22/17 14:17; Start 06/22/17 at 11:00 Piperacillin Sod/ Tazobactam Sod (Zosyn Per Pharmacy) 1 each PRN DAILY PRN MC SEE COMMENTS; Start 06/22/17 at 11:00 Aspirin (Children'S Aspirin) 81 mg DAILY PO Last administered on 06/23/17 09: 38; Start 06/22/17 at 12:00 Atorvastatin Calcium (Lipitor) 10 mg DAILY PO Last administered on 06/23/17 09 :38; Start 06/22/17 at 12:00 Azathioprine (Imuran) 50 mg DAILY PO Last administered on 06/23/17 09:40; Start 06/22/17 at 12:00 Famotidine (Pepcid) 20 mg HS PO Last administered on 06/22/17 20:43; Start at 21:00 Levothyroxine Sodium (Synthroid) 88 mcg DAILYAC PO Last administered on 08:22; Start 06/22/17 at 12:00 Prednisone (Prednisone) 20 mg DAILY PO Last administered on 06/23/17 09:40; Start 06/22/17 at 12:00 Insulin Detemir (Levemir) 70 units QHS SQ ; Start 06/22/17 at 21:00; Stop at 21:10; Status DC Cetirizine HCl (ZyrTEC) 10 mg DAILY PO Last administered on 06/23/17 09:38; Start 06/22/17 at 12:00 Metoprolol Tartrate (Lopressor) 100 mg BID PO ; Start 06/22/17 at 12:00; Stop 06/22/17 at 18:33; Status DC Tacrolimus (Prograf) 1 mg BID PO Last administered on 06/23/17 09:38; Start 06/22/17 at 12:00 Vancomycin HCl 2 gm/Dextrose/ Sodium Chloride 500 ml @ 250 mls/hr 1X ONCE IV Last administered on 06/22/17 13:04; Start 06/22/17 at 11:30; Stop 06/22/17 at 13:29; Status DC Piperacillin Sod/ Tazobactam Sod (Zosyn) 4.5 gm Q6HRS IVP Last administered on 06/23/17 12:43; Start 06/22/17 at 12:00 Vancomycin HCl 2 gm/Dextrose/ Sodium Chloride 500 ml @ 250 mls/hr Q24H IV ; Start 06/23/17 at 13:00; Stop 06/23/17 at 13:00; Status DC Vancomycin HCl 1 each 1X ONCE MC ; Start 06/24/17 at 12:30; Stop 06/24/17 at 12 :31 Metoprolol Tartrate (Lopressor) 50 mg BID PO Last administered on 06/23/17 09: 39; Start 06/22/17 at 21:00 Albumin Human 200 ml @ 100 mls/hr TID IV Last administered on 06/22/17 20:44 ; Start 06/22/17 at 21:00; Stop 06/23/17 at 02:42; Status DC Insulin Detemir (Levemir) 70 units QHS SQ ; Start 06/23/17 at 21:00 Insulin Detemir (Levemir) 30 units 1X ONCE SQ Last administered on 06/22/17 21:18; Start 06/22/17 at 21:15; Stop 06/22/17 at 21:16; Status DC Albumin Human 200 ml @ 100 mls/hr TID IV ; Start 06/23/17 at 03:00; Stop at 03:00; Status DC Albumin Human 200 ml @ 100 mls/hr Q6HRS IV Last administered on 06/23/17 12: 43; Start 06/23/17 at 06:00; Stop 06/24/17 at 07:59 Vancomycin HCl 2 gm/Dextrose/ Sodium Chloride 500 ml @ 250 mls/hr Q24H IV Last administered on 06/23/17 13:16; Start 06/23/17 at 13:00 Active Scripts Active Keflex (Cephalexin) 500 Mg Capsule 500 Mg PO QID 5 Days Reported Amlodipine Besylate 5 Mg Tablet 10 Mg PO DAILY Azathioprine 50 Mg Tablet 4 Tab PO DAILY Docusate Sodium 100 Mg Capsule 1 Cap PO TID PRN PRN Ferrous Sulfate 325 Mg Tablet 1 Tab PO BIDAC Ondansetron Hcl 4 Mg Tablet 1 Tab PO PRN Q8HRS PRN Prednisone 10 Mg Tablet 5 Mg PO DAILY Thiamine Hcl 100 Mg Tablet 100 Mg PO Nystatin-Triamcinolone Cream (Nystatin/Triamcin) 15 Gm Cream..g. 1 Alexis TP BID Pantoprazole Sodium 40 Mg Tablet.dr 1 Tab PO DAILY Tacrolimus 0.5 Mg Capsule 0.5 Mg PO DAILY Tylenol (Acetaminophen) 325 Mg Tablet 1 Tab PO PRN Q6HRS PRN Haloperidol 0.5 Mg Tablet 0.25 Mg PO PRN Q8HRS PRN Metoprolol Tartrate 50 Mg Tablet 3 Tab PO BID Novolog Flexpen (Insulin Aspart) 100 Unit/1 Ml Insuln.pen 22 Unit SQ AC SUPPER Novolog Flexpen (Insulin Aspart) 100 Unit/1 Ml Insuln.pen 18 Unit SQ AC LUNCH Novolog Flexpen (Insulin Aspart) 100 Unit/1 Ml Insuln.pen 10 Unit SQ AC BREAKFAST Levothyroxine Sodium 88 Mcg Tablet 1 Tab PO DAILY Atorvastatin Calcium 10 Mg Tablet 1 Tab PO DAILY Loratadine 10 Mg Tablet 1 Tab PO DAILY Hydrochlorothiazide Tablet (Hydrochlorothiazide) 25 Mg Tablet 25 Mg PO DAILY Pepcid Ac (Famotidine) 20 Mg Tablet 20 Mg PO HS Tacrolimus 1 Mg Capsule 1 Mg PO BID Men's Multivitamin Gummies (Folic Acid/Multivit-Minerals) 200 Mcg Tab.chew 200 Mcg PO Aspirin 81 Mg Tab.chew 1 Tab PO DAILY Lantus (Insulin Glargine,Hum.rec.anlog) 100 Unit/1 Ml Vial 70 Unit SQ QHS Alendronate Sodium 70 Mg Tablet 70 Mg PO WEEKLY Allergies Allergies: Coded Allergies: No Known Drug Allergies (Unverified , 05/08/17) ROS Review of System unable to obtain due to sedated and intuabted state Physical Exam Physical Exam General Appearance: Sedated and intubated on the VENT, In no Distress; morbidly obese WM Eyes: Sclera Anicteric- Conjunctiva Normal EN: No EN Drainage Mucous Memb. dryish Neck: no JVD no JVP Supple no Thyromegaly; short thick neck CVS: S1 S2 no Murmur No Gallop No Rub Ch Lymph Edema (? elephantiasis) ; Upper ext with +2-3 edema ptting in nature. Resp: no Rales + end exp Rhonchi min Acc. Muscle use GI: BS +ve NO Bruit Non Tender Non Distended; Morbidly obese : no CVA tenderness; no Suprapubic Tenderness; unable to palpate Txp given obesity SKIN: no Rashes Breast Exam deferred; + Gynecomastia Mu.Sk: Unable to assess ROM no Muscle Atrophy per se. Rt AKA Heme: Unable to palpate Obvious LAD no palp Splenomegaly NEURO: Unable to assess due to sedated adn intubated state Psych: Unable to assess due to sedated and intubated state Vital Signs Vital Signs Date Time Temp Pulse Resp B/P (MAP) Pulse Ox O2 Delivery O2 Flow Rate FiO2 12/2/17 13:19 100 Ventilator 06/23/17 13:00 59 17 154/46 (82) 06/23/17 11:08 97.5 97.5 Assessment & Plan CKD -T stage III/ IV - Creat has been 2.3ish in the past. Current improved creat probably due to AKA and loss of muscle mass (timing of same may need to be reverified) Renal Txp - ct current immunosuppression. Edema/ Anasarca - suspect Sev Rt Heart failure - ? Role for RHC ^ed Na - watch trend on TF. better with 0.45 NS H/o Kidney stone - check US - may need to do CT again Oliguria - trying intravascular Vol expansion with IV Abumin. Nutrition - remains on TF - ct Txp meds vis tube Labs Labs Laboratory Tests Test 06/22/17 05:04 06/22/17 08:35 06/22/17 08:40 06/22/17 12:05 O2 Saturation 99 % (92-99) 97 % (92-99) Arterial Blood pH 7.20 (7.35-7.45) 7.38 (7.35-7.45) Arterial Blood pCO2 at Patient Temp 85 mmHg (35-46) 51 mmHg (35-46) Arterial Blood pO2 at Patient Temp 244 mmHg (65-108) 84 mmHg (65-108) Arterial Blood HCO3 33 mmol/L (21-28) 30 mmol/L (21-28) Arterial Blood Base Excess 3 mmol/L (-3-3) 4 mmol/L (-3-3) FiO2 100.0 40 Nasal Screen MRSA (PCR) Negative (Negative) White Blood Count 8.8 x10^3/uL (4.0-11.0) Red Blood Count 3.20 x10^6/uL (4.30-5.70) Hemoglobin 10.4 g/dL (13.0-17.5) Hematocrit 32.6 % (39.0-53.0) Mean Corpuscular Volume 102 fL (79-100) Mean Corpuscular Hemoglobin 33 pg (25-35) Mean Corpuscular Hemoglobin Concent 32 g/dL (31-37) Red Cell Distribution Width 21.5 % (11.5-14.5) Platelet Count 326 x10^3/uL (140-400) Neutrophils (%) (Auto) 78 % (31-73) Lymphocytes (%) (Auto) 14 % (24-48) Monocytes (%) (Auto) 7 % (0-9) Eosinophils (%) (Auto) 0 % (0-3) Basophils (%) (Auto) 1 % (0-3) Neutrophils # (Auto) 6.8 x10^3uL (1.8-7.7) Lymphocytes # (Auto) 1.2 x10^3/uL (1.0-4.8) Monocytes # (Auto) 0.6 x10^3/uL (0.0-1.1) Eosinophils # (Auto) 0.0 x10^3/uL (0.0-0.7) Basophils # (Auto) 0.1 x10^3/uL (0.0-0.2) Segmented Neutrophils % 80 % (35-66) Band Neutrophils % 1 % (0-9) Lymphocytes % 9 % (24-48) Monocytes % 6 % (0-10) Myelocytes % 4 % (0-0) Platelet Estimate Adequate (ADEQUATE) Basophilic Stippling Present Anisocytosis Present Prothrombin Time 14.2 SEC (11.7-14.0) Prothromb Time International Ratio 1.2 (0.8-1.1) Activated Partial Thromboplast Time 37 SEC (24-38) Sodium Level 151 mmol/L (136-145) Potassium Level 4.7 mmol/L (3.5-5.1) Chloride Level 113 mmol/L (98-107) Carbon Dioxide Level 31 mmol/L (21-32) Anion Gap 7 (6-14) Blood Urea Nitrogen 12 mg/dL (8-26) Creatinine 1.6 mg/dL (0.7-1.3) Estimated GFR (Cockcroft-Gault) 42.5 BUN/Creatinine Ratio 8 (6-20) Glucose Level 120 mg/dL (70-99) Lactic Acid Level 1.7 mmol/L (0.4-2.0) Calcium Level 8.7 mg/dL (8.5-10.1) Magnesium Level 1.5 mg/dL (1.8-2.4) Total Bilirubin 0.5 mg/dL (0.2-1.0) Aspartate Amino Transf (AST/SGOT) 34 U/L (15-37) Alanine Aminotransferase (ALT/SGPT) 16 U/L (16-63) Alkaline Phosphatase 118 U/L (46-116) Creatine Kinase 19 U/L (39-308) Creatine Kinase MB (Mass) < 0.5 ng/mL (0.0-3.6) Creatine Kinase MB Relative Index % (0-4) Troponin I Quantitative < 0.017 ng/mL (0.000-0.055) DP-Vmo-Y-Type Natriuretic Peptide 89689 pg/mL (0-124) Total Protein 4.7 g/dL (6.4-8.2) Albumin 1.9 g/dL (3.4-5.0) Albumin/Globulin Ratio 0.7 (1.0-1.7) Test 06/22/17 20:42 06/23/17 05:15 06/23/17 06:51 06/23/17 12:03 Glucose (Fingerstick) 107 mg/dL (70-99) 107 mg/dL (70-99) White Blood Count 7.9 x10^3/uL (4.0-11.0) Red Blood Count 2.78 x10^6/uL (4.30-5.70) Hemoglobin 8.8 g/dL (13.0-17.5) Hematocrit 27.1 % (39.0-53.0) Mean Corpuscular Volume 98 fL (79-100) Mean Corpuscular Hemoglobin 32 pg (25-35) Mean Corpuscular Hemoglobin Concent 33 g/dL (31-37) Red Cell Distribution Width 20.6 % (11.5-14.5) Platelet Count 185 x10^3/uL (140-400) Neutrophils (%) (Auto) 89 % (31-73) Lymphocytes (%) (Auto) 7 % (24-48) Monocytes (%) (Auto) 4 % (0-9) Eosinophils (%) (Auto) 0 % (0-3) Basophils (%) (Auto) 1 % (0-3) Neutrophils # (Auto) 7.0 x10^3uL (1.8-7.7) Lymphocytes # (Auto) 0.5 x10^3/uL (1.0-4.8) Monocytes # (Auto) 0.3 x10^3/uL (0.0-1.1) Eosinophils # (Auto) 0.0 x10^3/uL (0.0-0.7) Basophils # (Auto) 0.0 x10^3/uL (0.0-0.2) Sodium Level 147 mmol/L (136-145) Potassium Level 4.3 mmol/L (3.5-5.1) Chloride Level 110 mmol/L (98-107) Carbon Dioxide Level 27 mmol/L (21-32) Anion Gap 10 (6-14) Blood Urea Nitrogen 15 mg/dL (8-26) Creatinine 1.9 mg/dL (0.7-1.3) Estimated GFR (Cockcroft-Gault) 34.8 Glucose Level 125 mg/dL (70-99) Calcium Level 8.5 mg/dL (8.5-10.1) O2 Saturation 97 % (92-99) Arterial Blood pH 7.42 (7.35-7.45) Arterial Blood pCO2 at Patient Temp 42 mmHg (35-46) Arterial Blood pO2 at Patient Temp 86 mmHg (65-108) Arterial Blood HCO3 27 mmol/L (21-28) Arterial Blood Base Excess 2 mmol/L (-3-3) FiO2 40 Test 06/23/17 12:07 Glucose (Fingerstick) 103 mg/dL (70-99) Laboratory Tests Test 06/22/17 20:42 06/23/17 05:15 06/23/17 06:51 06/23/17 12:03 Glucose (Fingerstick) 107 mg/dL (70-99) 107 mg/dL (70-99) White Blood Count 7.9 x10^3/uL (4.0-11.0) Red Blood Count 2.78 x10^6/uL (4.30-5.70) Hemoglobin 8.8 g/dL (13.0-17.5) Hematocrit 27.1 % (39.0-53.0) Mean Corpuscular Volume 98 fL (79-100) Mean Corpuscular Hemoglobin 32 pg (25-35) Mean Corpuscular Hemoglobin Concent 33 g/dL (31-37) Red Cell Distribution Width 20.6 % (11.5-14.5) Platelet Count 185 x10^3/uL (140-400) Neutrophils (%) (Auto) 89 % (31-73) Lymphocytes (%) (Auto) 7 % (24-48) Monocytes (%) (Auto) 4 % (0-9) Eosinophils (%) (Auto) 0 % (0-3) Basophils (%) (Auto) 1 % (0-3) Neutrophils # (Auto) 7.0 x10^3uL (1.8-7.7) Lymphocytes # (Auto) 0.5 x10^3/uL (1.0-4.8) Monocytes # (Auto) 0.3 x10^3/uL (0.0-1.1) Eosinophils # (Auto) 0.0 x10^3/uL (0.0-0.7) Basophils # (Auto) 0.0 x10^3/uL (0.0-0.2) Sodium Level 147 mmol/L (136-145) Potassium Level 4.3 mmol/L (3.5-5.1) Chloride Level 110 mmol/L (98-107) Carbon Dioxide Level 27 mmol/L (21-32) Anion Gap 10 (6-14) Blood Urea Nitrogen 15 mg/dL (8-26) Creatinine 1.9 mg/dL (0.7-1.3) Estimated GFR (Cockcroft-Gault) 34.8 Glucose Level 125 mg/dL (70-99) Calcium Level 8.5 mg/dL (8.5-10.1) O2 Saturation 97 % (92-99) Arterial Blood pH 7.42 (7.35-7.45) Arterial Blood pCO2 at Patient Temp 42 mmHg (35-46) Arterial Blood pO2 at Patient Temp 86 mmHg (65-108) Arterial Blood HCO3 27 mmol/L (21-28) Arterial Blood Base Excess 2 mmol/L (-3-3) FiO2 40 Test 06/23/17 12:07 Glucose (Fingerstick) 103 mg/dL (70-99) Images Images Previous CT Scan: 1. Right renal transplant. There is a small nonobstructing calculus in the right renal transplant. No hydronephrosis is seen. 2. 2 solid appearing masses within the right [place] kidney. Renal cell carcinoma cannot be excluded. No definite abdominal or pelvic lymphadenopathy is seen. There is a lytic lesion in the left iliac bone. A lytic metastasis cannot be entirely excluded. 3. Midline ventral hernia containing small bowel loops. No bowel obstruction is seen. No intra-abdominal abscess or free air is identified. 4. Uncomplicated diverticulosis. ECHO this visit: The left ventricular systolic function is normal. The Ejection Fraction is 55-60%. There is normal LV segmental wall motion. Moderate aortic regurgitation. Trace mitral regurgitation. Mild tricuspid regurgitation. The PA pressure was estimated at 52 mmHg. There is no evidence of significant pericardial effusion. SCHUYLER GALAVIZ MD Jun 23, 2017 14:26
[2017-06-23] MEDS ORDERED: MAGNESIUM SULFATE 2GM 50 ML IV PRN (14:30)
[2017-06-23] MEDS: fentaNYL PF VIAL 100 MCG/2 ML VIAL IV PRN ×2 (15:42→18:35)
[2017-06-23] MEDS: FAMOTIDINE 20 MG TABLET. PO SCH (21:00)
[2017-06-23] MEDS: INSULIN DETEMIR 300 UNITS/3 ML INSULN.PEN. SQ SCH (21:02)
[2017-06-23] MEDS: PROPOFOL 100 ML IV PRN (21:23)
--- NOTE | 2017-06-23 22:15 | CONS ---
DATE OF CONSULTATION: 06/23/2017 PRIMARY PHYSICIAN: Dr. Chiu. REASON FOR CONSULTATION: Renal transplant, CKD. HISTORY OF PRESENT ILLNESS: The patient is a 72-year-old gentleman who we have seen here in the past. He apparently resides at a fpc currently and was noted to be in altered mental status, was brought to the ER, was found to be hypercapnic and promptly intubated. His pCO2 was noted to be in the 80s. He is known to have chronic renal insufficiency with a baseline creatinine a few years ago of 1.7-2.4 in 06/2015, approximately more or less 2 years ago. He is currently intubated and sedated on the vent in room 115 where I have examined him. We were consulted for both his transplant status as well as the fact that he was noted to be significantly oliguric. IV fluids were tried. His sodium was noted to be elevated. His urine output is marginal still. Sodium has corrected, but albumin is noted to be low. He does have some weeping from his arms and lower extremity does not appear to be that edematous at this time. Magnesium was low and appears to have been replaced. Lactic acid is normal. Sodium is correcting. Creatinine is about 1.9 currently, significant edema in bilateral upper extremities are noted. He has a left BKA. Immunosuppressive meds from home are noted. He was placed on 25% albumin to help mobilize his "third spaced fluids." This appears to be helping some. For rest of the details, please see electronic records. SCHUYLER GALAVIZ MD DR: CAYLA/miriam JOB#: [id number] / [id number]
[2017-06-24] VITALS (22 sets, daily range): BP systolic 121–172; BP diastolic 43–76
[2017-06-24] MEDS: PIPERACILLIN/TAZO IV Push 4.5 GM VIAL. IVP SCH ×3 (05:47→20:19)
[2017-06-24] MEDS: ALBUMIN HUMAN 25% 200 ML IV SCH (05:47)
[2017-06-24 05:49] LABS: BASO % 0 % (0-3); EOS % 0 % (0-3); HEMATOCRIT 23.2 % (39.0-53.0); HEMOGLOBIN 7.7 g/dL (13.0-17.5); LYMPH # 0.6 x10^3/uL (1.0-4.8); LYMPH % 10 % (24-48); MEAN CORPUSCULAR HEMOGLOBIN 32 pg (25-35); MEAN CORPUSCULAR HGB CONC 33 g/dL (31-37); MEAN CORPUSCULAR VOLUME 96 fL (79-100); MONO % 7 % (0-9); NEUT % 84 % (31-73); PLATELET COUNT 151 x10^3/uL (140-400); RED BLOOD COUNT 2.41 x10^6/uL (4.30-5.70); RED CELL DISTRIBUTION WIDTH 21.6 % (11.5-14.5); WHITE BLOOD COUNT 6.1 x10^3/uL (4.0-11.0)
[2017-06-24 06:15] LABS: ALBUMIN 3.5 g/dL (3.4-5.0); ALBUMIN/GLOBULIN RATIO 1.5 (1.0-1.7); CALCIUM 8.2 mg/dL (8.5-10.1); CREATININE 2.1 mg/dL (0.7-1.3); PHOSPHORUS 2.2 mg/dL (2.6-4.7); POTASSIUM 3.7 mmol/L (3.5-5.1); TOTAL BILIRUBIN 0.6 mg/dL (0.2-1.0); TOTAL PROTEIN 5.8 g/dL (6.4-8.2)
[2017-06-24] MEDS ORDERED: MAGNESIUM SULFATE 2GM 50 ML IV ONE (06:30)
[2017-06-24 09:00] LABS: HCO3 ABG 25 mmol/L (21-28); PCO2 ABG 38 mmHg (35-46); PH ABG 7.44 (7.35-7.45); PO2 ABG 74 mmHg (65-108); SAT O2 ABG 95 % (92-99)
[2017-06-24 09:02] LABS: FIO2 ABG 40
[2017-06-24] MEDS: TACROLIMUS 1 MG CAPSULE PO SCH ×2 (09:14→20:22)
[2017-06-24] MEDS: ATORVASTATIN CALCIUM 10 MG TABLET. PO SCH (09:14)
[2017-06-24] MEDS: predniSONE 20 MG TABLET PO SCH (09:15)
[2017-06-24] MEDS: LEVOTHYROXINE 88 MCG TABLET PO SCH (09:15)
[2017-06-24] MEDS: ASPIRIN CHEWABLE 81 MG TABLET. PO SCH (09:15)
[2017-06-24] MEDS: azaTHIOprine 50 MG TABLET PO SCH (09:15)
[2017-06-24] MEDS: METOPROLOL TART IMMED RELEASE 50 MG TABLET. PO SCH ×2 (09:15→20:22)
[2017-06-24] MEDS: CETIRIZINE HCL 10 MG TABLET. PO SCH (09:23)
--- NOTE | 2017-06-24 09:48 | PDOC ---
PROGRESS NOTES Chief Complaint Chief Complaint Acute hypercarbic, hypoxic respir failure ASSESSMENT AND PLAN: 1. CHF exacerbation: no previous hx, poss driven by afib. echo on 06/22 with normal EF, pAP 52. CT with bilat effusions, suspected aspir PNA. remains intubated. 2. Afib: rate controlled. cardiology following. apparently, family unaware of existing hx; per cardiology, pt has declined OAC in past 3. Aspir PNA: bilat with PO contrast in lower lungs. on broad spectrum Abx 4. Anemia: continued decrease in H/H suspicious for blee. repeat CBC STAT to r/o lab error. OB stool. both urine and respir secretions pink. 5. CKD: s/p renal transplant. essentially stable. nephrology consulted 6. Immunocompromise: on mult immunosuppressants post renal transplant 7. Hypernatremia: resolved 8. DM2: currently tight control with 1/2 levemir dose. monitor with ISS 9. BEVERLY: on CPAP at home, not in NH over past 2 weeks 10. Nutrition: OG tube feeds History of Present Illness History of Present Illness intubated, sedated Vitals Vitals Vital Signs Date Time Temp Pulse Resp B/P (MAP) Pulse Ox O2 Delivery O2 Flow Rate FiO2 06/24/17 09:15 80 150/54 06/24/17 09:00 16 99 Ventilator 06/24/17 08:00 98.9 98.9 Physical Exam General: Other (mildly sedated, eyes open, not following commands) Heart: Other (AFIB rate controlled; distant heart sounds) Lungs: Other (decreased BS anteriorly) Abdomen: Soft, Other (obese) Extremities: Other ( s/p L AKA) Skin: Other (venous dermatitis) Labs LABS Laboratory Tests Test 06/23/17 12:03 06/23/17 12:07 06/23/17 20:59 06/24/17 05:05 Glucose (Fingerstick) 107 mg/dL (70-99) 103 mg/dL (70-99) 151 mg/dL (70-99) White Blood Count 6.1 x10^3/uL (4.0-11.0) Red Blood Count 2.41 x10^6/uL (4.30-5.70) Hemoglobin 7.7 g/dL (13.0-17.5) Hematocrit 23.2 % (39.0-53.0) Mean Corpuscular Volume 96 fL (79-100) Mean Corpuscular Hemoglobin 32 pg (25-35) Mean Corpuscular Hemoglobin Concent 33 g/dL (31-37) Red Cell Distribution Width 21.6 % (11.5-14.5) Platelet Count 151 x10^3/uL (140-400) Neutrophils (%) (Auto) 84 % (31-73) Lymphocytes (%) (Auto) 10 % (24-48) Monocytes (%) (Auto) 7 % (0-9) Eosinophils (%) (Auto) 0 % (0-3) Basophils (%) (Auto) 0 % (0-3) Neutrophils # (Auto) 5.1 x10^3uL (1.8-7.7) Lymphocytes # (Auto) 0.6 x10^3/uL (1.0-4.8) Monocytes # (Auto) 0.4 x10^3/uL (0.0-1.1) Eosinophils # (Auto) 0.0 x10^3/uL (0.0-0.7) Basophils # (Auto) 0.0 x10^3/uL (0.0-0.2) Sodium Level 145 mmol/L (136-145) Potassium Level 3.7 mmol/L (3.5-5.1) Chloride Level 106 mmol/L (98-107) Carbon Dioxide Level 29 mmol/L (21-32) Anion Gap 10 (6-14) Blood Urea Nitrogen 18 mg/dL (8-26) Creatinine 2.1 mg/dL (0.7-1.3) Estimated GFR (Cockcroft-Gault) 31.0 BUN/Creatinine Ratio 9 (6-20) Glucose Level 96 mg/dL (70-99) Calcium Level 8.2 mg/dL (8.5-10.1) Phosphorus Level 2.2 mg/dL (2.6-4.7) Magnesium Level 1.5 mg/dL (1.8-2.4) Total Bilirubin 0.6 mg/dL (0.2-1.0) Aspartate Amino Transf (AST/SGOT) 19 U/L (15-37) Alanine Aminotransferase (ALT/SGPT) 12 U/L (16-63) Alkaline Phosphatase 66 U/L (46-116) Total Protein 5.8 g/dL (6.4-8.2) Albumin 3.5 g/dL (3.4-5.0) Albumin/Globulin Ratio 1.5 (1.0-1.7) Test 06/24/17 08:50 O2 Saturation 95 % (92-99) Arterial Blood pH 7.44 (7.35-7.45) Arterial Blood pCO2 at Patient Temp 38 mmHg (35-46) Arterial Blood pO2 at Patient Temp 74 mmHg (65-108) Arterial Blood HCO3 25 mmol/L (21-28) Arterial Blood Base Excess 1 mmol/L (-3-3) FiO2 40 Nutrition Consultation Dietary Evaluation: Recommendations by RD: Increase Calorie Intake, Add supplement feedings Comments: Diabetisource AC@10 ml/hr, increase 10 ml/hr to goal rate 60 ml/hr w/75 ml water flushes q4 hrs - watching renal labs Expected Outcomes/Goals: TF tolerated at goal rate and providing > 60% est needs Interpretation of weight loss: >7.5% in 3 months Malnutrition Findings: Food and Nutrition Intake (Mod: <75% est energy req 7days Malnutrition related to morbid: BMI>or equal to 40 Malnutrition related to morbid: Yes Weight Status: Morbidly Obese SHAYY MONET MD Jun 24, 2017 09:48
[2017-06-24 09:55] LABS: HEMATOCRIT 23.4 % (39.0-53.0); HEMOGLOBIN 7.7 g/dL (13.0-17.5); RED BLOOD COUNT 2.4 x10^6/uL (4.30-5.70); RED CELL DISTRIBUTION WIDTH 21.4 % (11.5-14.5); WHITE BLOOD COUNT 5.9 x10^3/uL (4.0-11.0)
--- NOTE | 2017-06-24 10:30 | RAD ---
PORTABLE CHEST 1V Clinical Indication: Respiratory failure Comparison: June 23, 2017. Technique: Frontal view of the chest is obtained. Findings: Distal tip of ET tube, visualized gastric tube, and right IJ central line appear grossly similar in position. Diffuse ground glass opacification throughout the lungs appear mildly progressed from yesterday's exam. Bilateral pleural effusions redemonstrated, left greater than right. No pneumothorax is seen. Cardiomediastinal silhouette appears stable in size. Visualized osseous structures and overlying soft tissues demonstrate no acute interval change. IMPRESSION: Slight progression of bilateral groundglass opacification, may represent progressed edema or infiltrate. Bilateral pleural effusions appear similar.
--- NOTE | 2017-06-24 10:57 | PDOC ---
SUBJECTIVE ROS CKD III/ Iv - Oliguria Remains intubated and min sedated OBJECTIVE Vital Signs Vital Signs Date Time Temp Pulse Resp B/P (MAP) Pulse Ox O2 Delivery O2 Flow Rate FiO2 06/24/17 10:00 67 16 154/48 (83) 100 Ventilator 06/24/17 08:00 98.9 98.9 I & 0 Intake and Output 06/24/17 07:00 Intake Total 4135 ml Output Total 443 ml Balance 3692 ml IV Total 738 ml Tube Feeding 1365 ml Other 2032 ml Output Urine Total 442 ml Stool Total 1 ml PHYSICAL EXAM Physical Exam General Appearance: Sedated and intubated on the VENT, In no Distress; morbidly obese WM Eyes: Sclera Anicteric- Conjunctiva Normal EN: No EN Drainage Mucous Memb. dryish Neck: no JVD no JVP Supple no Thyromegaly; short thick neck CVS: S1 S2 no Murmur No Gallop No Rub Ch Lymph Edema (? elephantiasis) ; Upper ext with +2-3 edema ptting in nature. Resp: no Rales + end exp Rhonchi min Acc. Muscle use GI: BS +ve NO Bruit Non Tender Non Distended; Morbidly obese : no CVA tenderness; no Suprapubic Tenderness; unable to palpate Txp given obesity Assessment & Plan: CKD -T stage III/ IV - Creat has been as high as 2.3ish in the past. Current improved creat probably due to AKA and loss of muscle mass Renal Txp - ct current immunosuppression. Edema/ Anasarca - suspect Sev Rt Heart failure - ? Role for RHC - somewhat better after IV Alb Resp Failure - on the VENT, ? some Pulm edema - await Renal US - IV Lasix prn ^ed Na - resolved; D/c IVF H/o Kidney stone - checking US - may need to do CT again if unable tosee Kidney on US Oliguria - trying intravascular Vol expansion with IV Abumin. Nutrition - remains on TF - ct Txp meds vis tube COMMENT/RELEVANT DATA Meds Current Medications Medications (Trade) Dose Ordered Sig/Ivett Start Time Stop Time Status Last Admin Dose Admin Acetaminophen (Tylenol) 650 mg PRN Q4HRS PRN 06/22/17 06:45 06/23/17 06:44 DC Albumin Human 200 ml @ 100 mls/hr Q6HRS 06/23/17 06:00 06/24/17 07:59 DC 06/24/17 05:47 100 MLS/HR Aspirin (Children'S Aspirin) 81 mg DAILY 06/22/17 12:00 06/24/17 09:15 81 MG Atorvastatin Calcium (Lipitor) 10 mg DAILY 06/22/17 12:00 06/24/17 09:14 10 MG Azathioprine (Imuran) 50 mg DAILY 06/22/17 12:00 06/24/17 09:15 50 MG Cetirizine HCl (ZyrTEC) 10 mg DAILY 06/22/17 12:00 06/24/17 09:23 10 MG Etomidate (Amidate) 20 mg STK-MED ONCE 06/22/17 05:47 06/22/17 05:48 DC Famotidine (Pepcid) 20 mg HS 06/22/17 21:00 06/23/17 21:00 20 MG Fentanyl Citrate (Fentanyl 2ml Vial) 25 mcg PRN Q4HRS PRN 06/23/17 15:45 06/23/17 18:35 25 MCG Insulin Detemir (Levemir) 30 units 1X ONCE 06/22/17 21:15 06/22/17 21:16 DC 06/22/17 21:18 30 UNITS Levothyroxine Sodium (Synthroid) 88 mcg DAILYAC 06/22/17 12:00 06/24/17 09:15 88 MCG Magnesium Sulfate/ Dextrose 50 ml @ 25 mls/hr 1X ONCE 06/24/17 06:30 06/24/17 08:29 DC 06/24/17 06:32 25 MLS/HR Metoprolol Tartrate (Lopressor) 50 mg BID 06/22/17 21:00 06/24/17 09:15 50 MG Midazolam HCl (Versed) 2 mg 1X ONCE 06/22/17 07:30 06/22/17 07:31 DC 06/22/17 07:30 2 MG Norepinephrine Bitartrate 250 ml @ 0 mls/hr CONT PRN 06/22/17 08:30 06/22/17 13:02 5 MLS/HR Ondansetron HCl (Zofran) 4 mg PRN Q8HRS PRN 06/22/17 06:45 06/23/17 06:44 DC Piperacillin Sod/ Tazobactam Sod (Zosyn Per Pharmacy) 1 each PRN DAILY PRN 06/22/17 11:00 Piperacillin Sod/ Tazobactam Sod (Zosyn) 4.5 gm Q6HRS 06/22/17 12:00 06/24/17 05:47 4.5 GM Prednisone (Prednisone) 20 mg DAILY 06/22/17 12:00 06/24/17 09:15 20 MG Propofol 100 ml @ 0 mls/hr CONT PRN 06/22/17 06:30 06/23/17 21:23 19.9 MLS/HR Rocuronium [place] (Zemuron) 50 mg STK-MED ONCE 06/22/17 05:48 06/22/17 05:49 DC Sodium Chloride 1,000 ml @ 999 mls/hr 1X ONCE 06/22/17 10:45 06/22/17 11:45 DC 06/22/17 14:32 999 MLS/HR Tacrolimus (Prograf) 1 mg BID 06/22/17 12:00 06/24/17 09:14 1 MG Vancomycin HCl 1 each 1X ONCE 06/24/17 12:30 06/24/17 12:31 Vancomycin HCl (Vanco Per Pharmacy) 1 each PRN DAILY PRN 06/22/17 11:00 06/22/17 14:17 1 EACH Vancomycin HCl 2 gm/Dextrose/ Sodium Chloride 500 ml @ 250 mls/hr Q24H 06/23/17 13:00 06/23/17 13:16 250 MLS/HR Lab Laboratory Tests Test 06/23/17 12:03 06/23/17 12:07 06/23/17 20:59 06/24/17 05:05 Glucose (Fingerstick) 107 mg/dL (70-99) 103 mg/dL (70-99) 151 mg/dL (70-99) White Blood Count 6.1 x10^3/uL (4.0-11.0) Red Blood Count 2.41 x10^6/uL (4.30-5.70) Hemoglobin 7.7 g/dL (13.0-17.5) Hematocrit 23.2 % (39.0-53.0) Mean Corpuscular Volume 96 fL (79-100) Mean Corpuscular Hemoglobin 32 pg (25-35) Mean Corpuscular Hemoglobin Concent 33 g/dL (31-37) Red Cell Distribution Width 21.6 % (11.5-14.5) Platelet Count 151 x10^3/uL (140-400) Neutrophils (%) (Auto) 84 % (31-73) Lymphocytes (%) (Auto) 10 % (24-48) Monocytes (%) (Auto) 7 % (0-9) Eosinophils (%) (Auto) 0 % (0-3) Basophils (%) (Auto) 0 % (0-3) Neutrophils # (Auto) 5.1 x10^3uL (1.8-7.7) Lymphocytes # (Auto) 0.6 x10^3/uL (1.0-4.8) Monocytes # (Auto) 0.4 x10^3/uL (0.0-1.1) Eosinophils # (Auto) 0.0 x10^3/uL (0.0-0.7) Basophils # (Auto) 0.0 x10^3/uL (0.0-0.2) Sodium Level 145 mmol/L (136-145) Potassium Level 3.7 mmol/L (3.5-5.1) Chloride Level 106 mmol/L (98-107) Carbon Dioxide Level 29 mmol/L (21-32) Anion Gap 10 (6-14) Blood Urea Nitrogen 18 mg/dL (8-26) Creatinine 2.1 mg/dL (0.7-1.3) Estimated GFR (Cockcroft-Gault) 31.0 BUN/Creatinine Ratio 9 (6-20) Glucose Level 96 mg/dL (70-99) Calcium Level 8.2 mg/dL (8.5-10.1) Phosphorus Level 2.2 mg/dL (2.6-4.7) Magnesium Level 1.5 mg/dL (1.8-2.4) Total Bilirubin 0.6 mg/dL (0.2-1.0) Aspartate Amino Transf (AST/SGOT) 19 U/L (15-37) Alanine Aminotransferase (ALT/SGPT) 12 U/L (16-63) Alkaline Phosphatase 66 U/L (46-116) Total Protein 5.8 g/dL (6.4-8.2) Albumin 3.5 g/dL (3.4-5.0) Albumin/Globulin Ratio 1.5 (1.0-1.7) Test 06/24/17 08:50 06/24/17 09:50 O2 Saturation 95 % (92-99) Arterial Blood pH 7.44 (7.35-7.45) Arterial Blood pCO2 at Patient Temp 38 mmHg (35-46) Arterial Blood pO2 at Patient Temp 74 mmHg (65-108) Arterial Blood HCO3 25 mmol/L (21-28) Arterial Blood Base Excess 1 mmol/L (-3-3) FiO2 40 White Blood Count 5.9 x10^3/uL (4.0-11.0) Red Blood Count 2.40 x10^6/uL (4.30-5.70) Hemoglobin 7.7 g/dL (13.0-17.5) Hematocrit 23.4 % (39.0-53.0) Mean Corpuscular Volume 98 fL (79-100) Mean Corpuscular Hemoglobin 32 pg (25-35) Mean Corpuscular Hemoglobin Concent 33 g/dL (31-37) Red Cell Distribution Width 21.4 % (11.5-14.5) Platelet Count 154 x10^3/uL (140-400) SCHUYLER GALAVIZ MD Jun 24, 2017 10:57
--- NOTE | 2017-06-24 11:02 | PDOC ---
PULMONARY PROGRESS NOTES Subjective remains intubated/sedated off sedation, not fully awake yet Vitals Vital Signs Date Time Temp Pulse Resp B/P (MAP) Pulse Ox O2 Delivery O2 Flow Rate FiO2 06/24/17 10:00 67 16 154/48 (83) 100 Ventilator 06/24/17 08:00 98.9 98.9 General: Lethargic Lungs: Other (decreased BS anteriorly) Cardiovascular: S1 Abdomen: Soft, Other (obese) Extremities: Other (right lymphedema, left BKA) Labs Laboratory Tests Test 06/22/17 12:05 06/22/17 20:42 06/23/17 05:15 06/23/17 06:51 O2 Saturation 97 % (92-99) 97 % (92-99) Arterial Blood pH 7.38 (7.35-7.45) 7.42 (7.35-7.45) Arterial Blood pCO2 at Patient Temp 51 mmHg (35-46) 42 mmHg (35-46) Arterial Blood pO2 at Patient Temp 84 mmHg (65-108) 86 mmHg (65-108) Arterial Blood HCO3 30 mmol/L (21-28) 27 mmol/L (21-28) Arterial Blood Base Excess 4 mmol/L (-3-3) 2 mmol/L (-3-3) FiO2 40 40 Glucose (Fingerstick) 107 mg/dL (70-99) White Blood Count 7.9 x10^3/uL (4.0-11.0) Red Blood Count 2.78 x10^6/uL (4.30-5.70) Hemoglobin 8.8 g/dL (13.0-17.5) Hematocrit 27.1 % (39.0-53.0) Mean Corpuscular Volume 98 fL (79-100) Mean Corpuscular Hemoglobin 32 pg (25-35) Mean Corpuscular Hemoglobin Concent 33 g/dL (31-37) Red Cell Distribution Width 20.6 % (11.5-14.5) Platelet Count 185 x10^3/uL (140-400) Neutrophils (%) (Auto) 89 % (31-73) Lymphocytes (%) (Auto) 7 % (24-48) Monocytes (%) (Auto) 4 % (0-9) Eosinophils (%) (Auto) 0 % (0-3) Basophils (%) (Auto) 1 % (0-3) Neutrophils # (Auto) 7.0 x10^3uL (1.8-7.7) Lymphocytes # (Auto) 0.5 x10^3/uL (1.0-4.8) Monocytes # (Auto) 0.3 x10^3/uL (0.0-1.1) Eosinophils # (Auto) 0.0 x10^3/uL (0.0-0.7) Basophils # (Auto) 0.0 x10^3/uL (0.0-0.2) Sodium Level 147 mmol/L (136-145) Potassium Level 4.3 mmol/L (3.5-5.1) Chloride Level 110 mmol/L (98-107) Carbon Dioxide Level 27 mmol/L (21-32) Anion Gap 10 (6-14) Blood Urea Nitrogen 15 mg/dL (8-26) Creatinine 1.9 mg/dL (0.7-1.3) Estimated GFR (Cockcroft-Gault) 34.8 Glucose Level 125 mg/dL (70-99) Calcium Level 8.5 mg/dL (8.5-10.1) Test 06/23/17 12:03 06/23/17 12:07 06/23/17 20:59 06/24/17 05:05 Glucose (Fingerstick) 107 mg/dL (70-99) 103 mg/dL (70-99) 151 mg/dL (70-99) White Blood Count 6.1 x10^3/uL (4.0-11.0) Red Blood Count 2.41 x10^6/uL (4.30-5.70) Hemoglobin 7.7 g/dL (13.0-17.5) Hematocrit 23.2 % (39.0-53.0) Mean Corpuscular Volume 96 fL (79-100) Mean Corpuscular Hemoglobin 32 pg (25-35) Mean Corpuscular Hemoglobin Concent 33 g/dL (31-37) Red Cell Distribution Width 21.6 % (11.5-14.5) Platelet Count 151 x10^3/uL (140-400) Neutrophils (%) (Auto) 84 % (31-73) Lymphocytes (%) (Auto) 10 % (24-48) Monocytes (%) (Auto) 7 % (0-9) Eosinophils (%) (Auto) 0 % (0-3) Basophils (%) (Auto) 0 % (0-3) Neutrophils # (Auto) 5.1 x10^3uL (1.8-7.7) Lymphocytes # (Auto) 0.6 x10^3/uL (1.0-4.8) Monocytes # (Auto) 0.4 x10^3/uL (0.0-1.1) Eosinophils # (Auto) 0.0 x10^3/uL (0.0-0.7) Basophils # (Auto) 0.0 x10^3/uL (0.0-0.2) Sodium Level 145 mmol/L (136-145) Potassium Level 3.7 mmol/L (3.5-5.1) Chloride Level 106 mmol/L (98-107) Carbon Dioxide Level 29 mmol/L (21-32) Anion Gap 10 (6-14) Blood Urea Nitrogen 18 mg/dL (8-26) Creatinine 2.1 mg/dL (0.7-1.3) Estimated GFR (Cockcroft-Gault) 31.0 BUN/Creatinine Ratio 9 (6-20) Glucose Level 96 mg/dL (70-99) Calcium Level 8.2 mg/dL (8.5-10.1) Phosphorus Level 2.2 mg/dL (2.6-4.7) Magnesium Level 1.5 mg/dL (1.8-2.4) Total Bilirubin 0.6 mg/dL (0.2-1.0) Aspartate Amino Transf (AST/SGOT) 19 U/L (15-37) Alanine Aminotransferase (ALT/SGPT) 12 U/L (16-63) Alkaline Phosphatase 66 U/L (46-116) Total Protein 5.8 g/dL (6.4-8.2) Albumin 3.5 g/dL (3.4-5.0) Albumin/Globulin Ratio 1.5 (1.0-1.7) Test 06/24/17 08:50 06/24/17 09:50 O2 Saturation 95 % (92-99) Arterial Blood pH 7.44 (7.35-7.45) Arterial Blood pCO2 at Patient Temp 38 mmHg (35-46) Arterial Blood pO2 at Patient Temp 74 mmHg (65-108) Arterial Blood HCO3 25 mmol/L (21-28) Arterial Blood Base Excess 1 mmol/L (-3-3) FiO2 40 White Blood Count 5.9 x10^3/uL (4.0-11.0) Red Blood Count 2.40 x10^6/uL (4.30-5.70) Hemoglobin 7.7 g/dL (13.0-17.5) Hematocrit 23.4 % (39.0-53.0) Mean Corpuscular Volume 98 fL (79-100) Mean Corpuscular Hemoglobin 32 pg (25-35) Mean Corpuscular Hemoglobin Concent 33 g/dL (31-37) Red Cell Distribution Width 21.4 % (11.5-14.5) Platelet Count 154 x10^3/uL (140-400) Laboratory Tests Test 06/23/17 12:03 06/23/17 12:07 06/23/17 20:59 06/24/17 05:05 Glucose (Fingerstick) 107 mg/dL (70-99) 103 mg/dL (70-99) 151 mg/dL (70-99) White Blood Count 6.1 x10^3/uL (4.0-11.0) Red Blood Count 2.41 x10^6/uL (4.30-5.70) Hemoglobin 7.7 g/dL (13.0-17.5) Hematocrit 23.2 % (39.0-53.0) Mean Corpuscular Volume 96 fL (79-100) Mean Corpuscular Hemoglobin 32 pg (25-35) Mean Corpuscular Hemoglobin Concent 33 g/dL (31-37) Red Cell Distribution Width 21.6 % (11.5-14.5) Platelet Count 151 x10^3/uL (140-400) Neutrophils (%) (Auto) 84 % (31-73) Lymphocytes (%) (Auto) 10 % (24-48) Monocytes (%) (Auto) 7 % (0-9) Eosinophils (%) (Auto) 0 % (0-3) Basophils (%) (Auto) 0 % (0-3) Neutrophils # (Auto) 5.1 x10^3uL (1.8-7.7) Lymphocytes # (Auto) 0.6 x10^3/uL (1.0-4.8) Monocytes # (Auto) 0.4 x10^3/uL (0.0-1.1) Eosinophils # (Auto) 0.0 x10^3/uL (0.0-0.7) Basophils # (Auto) 0.0 x10^3/uL (0.0-0.2) Sodium Level 145 mmol/L (136-145) Potassium Level 3.7 mmol/L (3.5-5.1) Chloride Level 106 mmol/L (98-107) Carbon Dioxide Level 29 mmol/L (21-32) Anion Gap 10 (6-14) Blood Urea Nitrogen 18 mg/dL (8-26) Creatinine 2.1 mg/dL (0.7-1.3) Estimated GFR (Cockcroft-Gault) 31.0 BUN/Creatinine Ratio 9 (6-20) Glucose Level 96 mg/dL (70-99) Calcium Level 8.2 mg/dL (8.5-10.1) Phosphorus Level 2.2 mg/dL (2.6-4.7) Magnesium Level 1.5 mg/dL (1.8-2.4) Total Bilirubin 0.6 mg/dL (0.2-1.0) Aspartate Amino Transf (AST/SGOT) 19 U/L (15-37) Alanine Aminotransferase (ALT/SGPT) 12 U/L (16-63) Alkaline Phosphatase 66 U/L (46-116) Total Protein 5.8 g/dL (6.4-8.2) Albumin 3.5 g/dL (3.4-5.0) Albumin/Globulin Ratio 1.5 (1.0-1.7) Test 06/24/17 08:50 06/24/17 09:50 O2 Saturation 95 % (92-99) Arterial Blood pH 7.44 (7.35-7.45) Arterial Blood pCO2 at Patient Temp 38 mmHg (35-46) Arterial Blood pO2 at Patient Temp 74 mmHg (65-108) Arterial Blood HCO3 25 mmol/L (21-28) Arterial Blood Base Excess 1 mmol/L (-3-3) FiO2 40 White Blood Count 5.9 x10^3/uL (4.0-11.0) Red Blood Count 2.40 x10^6/uL (4.30-5.70) Hemoglobin 7.7 g/dL (13.0-17.5) Hematocrit 23.4 % (39.0-53.0) Mean Corpuscular Volume 98 fL (79-100) Mean Corpuscular Hemoglobin 32 pg (25-35) Mean Corpuscular Hemoglobin Concent 33 g/dL (31-37) Red Cell Distribution Width 21.4 % (11.5-14.5) Platelet Count 154 x10^3/uL (140-400) Medications Active Scripts Medications Dose Route/Sig Max Daily Dose Days Date Category Amlodipine Besylate 5 Mg Tablet 10 Mg PO DAILY 06/22/17 Reported Azathioprine 50 Mg Tablet 4 Tab PO DAILY 06/22/17 Reported Docusate Sodium 100 Mg Capsule 1 Cap PO TID PRN PRN 06/22/17 Reported Ferrous Sulfate 325 Mg Tablet 1 Tab PO BIDAC 06/22/17 Reported Ondansetron Hcl 4 Mg Tablet 1 Tab PO PRN Q8HRS PRN 06/22/17 Reported Prednisone 10 Mg Tablet 5 Mg PO DAILY 06/22/17 Reported Thiamine Hcl 100 Mg Tablet 100 Mg PO 06/22/17 Reported Nystatin-Triamcinolone Cream (Nystatin/Triamcin) 15 Gm Cream..g. 1 Alexis TP BID 06/22/17 Reported Pantoprazole Sodium 40 Mg Tablet.dr 1 Tab PO DAILY 06/22/17 Reported Tacrolimus 0.5 Mg Capsule 0.5 Mg PO DAILY 06/22/17 Reported Tylenol (Acetaminophen) 325 Mg Tablet 1 Tab PO PRN Q6HRS PRN 06/22/17 Reported Haloperidol 0.5 Mg Tablet 0.25 Mg PO PRN Q8HRS PRN 06/22/17 Reported Metoprolol Tartrate 50 Mg Tablet 3 Tab PO BID 06/22/17 Reported Keflex (Cephalexin) 500 Mg Capsule 500 Mg PO QID 5 06/30/15 Rx Novolog Flexpen (Insulin Aspart) 100 Unit/1 Ml Insuln.pen 22 Unit SQ AC SUPPER 06/26/15 Reported Novolog Flexpen (Insulin Aspart) 100 Unit/1 Ml Insuln.pen 18 Unit SQ AC LUNCH 06/26/15 Reported Novolog Flexpen (Insulin Aspart) 100 Unit/1 Ml Insuln.pen 10 Unit SQ AC BREAKFAST 06/26/15 Reported Levothyroxine Sodium 88 Mcg Tablet 1 Tab PO DAILY 12/3/15 Reported Atorvastatin Calcium 10 Mg Tablet 1 Tab PO DAILY 06/24/15 Reported Loratadine 10 Mg Tablet 1 Tab PO DAILY 06/24/15 Reported Hydrochlorothiazide Tablet (Hydrochlorothiazide) 25 Mg Tablet 25 Mg PO DAILY 06/24/15 Reported Pepcid Ac (Famotidine) 20 Mg Tablet 20 Mg PO HS 06/24/15 Reported Tacrolimus 1 Mg Capsule 1 Mg PO BID 06/24/15 Reported Men's Multivitamin Gummies (Folic Acid/Multivit-Minerals) 200 Mcg Tab.chew 200 Mcg PO 06/24/15 Reported Aspirin 81 Mg Tab.chew 1 Tab PO DAILY 06/24/15 Reported Lantus (Insulin Glargine,Hum.rec.anlog) 100 Unit/1 Ml Vial 70 Unit SQ QHS 06/24/15 Reported Alendronate Sodium 70 Mg Tablet 70 Mg PO WEEKLY 06/24/15 Reported Comments CXR 06/24 Increasing effusions/ CHF Impression . 1. Acute hypercapnic respiratory failure secondary to multifactorial etiologies including acute toxic and metabolic encephalopathy, shock , less likely pneumonia / CHF 2. Abnormal ct chest with moderate effusions/ some aspirated gastro graffin 3. History of renal transplant and acute kidney injury. 4. History of methicillin-resistant Staphylococcus aureus infection. 5. Hypernatremia, related to volume contraction. 6. Severe protein-calorie malnutrition. 7. No significant history of tobacco use. Plan . 1. continue with present assist control mode. Follow ABGs and make necessary adjustments.once more awake, CPAP trial 2. echocardiogram with moderate AI and secondary pulmonary HTN/ Normal EF 3. off Levophed / s/p IV fluids , CXR worse, give lasix today 4. follow cxr 5. improve nutritional status 6. antibiotics 7. Stress ulcer prophylaxis and DVT prophylaxis. 8. Discussed with Dr. Chiu./ MARKY SHEPPARD MD Jun 24, 2017 11:02
[2017-06-24] MEDS ORDERED: FUROSEMIDE 20 MG/2 ML VIAL. IVP ONE (11:15)
--- NOTE | 2017-06-24 11:54 | RAD ---
TRANSPLANT KIDNEY Clinical Indication: REJI, Oliguria, h/o Stone in transplant kidney Comparison: June 25, 2015 Technique: Targeted transverse and longitudinal sonography of a right lower quadrant transplant kidney is performed. Findings: A kidney is visualized within the right lower quadrant consistent with a transplant kidney. The kidney measures 13.2 x 6.4 x 4.7 cm. Blood flow is seen within the kidney and renal hilum. A single measured resistive index of 0.7 is within upper limits of normal. No hydronephrosis is seen. There is somewhat limited visualization of the kidney, limiting assessment for small lesions. No definite nephrolithiasis is seen. IMPRESSION: No hydronephrosis or definite nephrolithiasis seen.
[2017-06-24] MEDS: POTASSIUM PHOSPHATE DIBASIC 13.6 MMOL in IV NORMAL SALINE 100ML 100 ML IV SCH ×3 (13:00→18:07)
[2017-06-24] MEDS: VANCOMYCIN 2 GM in IV DEXTROSE 5 %-0.45 % NACL 500 ML IV SCH (14:43)
[2017-06-24 16:41] LABS: HCO3 ABG 28 mmol/L (21-28); PCO2 ABG 47 mmHg (35-46); PH ABG 7.39 (7.35-7.45); PO2 ABG 79 mmHg (65-108); SAT O2 ABG 95 % (92-99)
[2017-06-24 16:44] LABS: FIO2 ABG 40
[2017-06-24] MEDS: FAMOTIDINE 20 MG TABLET. PO SCH (20:22)
[2017-06-24] MEDS: PROPOFOL 100 ML IV PRN (20:27)
[2017-06-24] MEDS: INSULIN DETEMIR 300 UNITS/3 ML INSULN.PEN. SQ SCH (21:53)
[2017-06-25] VITALS (23 sets, daily range): BP systolic 15–165; BP diastolic 55–87
[2017-06-25] MEDS: PIPERACILLIN/TAZO IV Push 4.5 GM VIAL. IVP SCH ×5 (00:07→23:41)
[2017-06-25] MEDS: PROPOFOL 100 ML IV PRN (03:20)
[2017-06-25] MEDS ORDERED: DEXTROSE 50% 25 GM / 50ML DISP.SYRIN. IV ONE (05:58)
[2017-06-25 06:22] LABS: BASO % 0 % (0-3); EOS % 1 % (0-3); HEMATOCRIT 25.1 % (39.0-53.0); HEMOGLOBIN 8.2 g/dL (13.0-17.5); LYMPH # 0.6 x10^3/uL (1.0-4.8); LYMPH % 10 % (24-48); MEAN CORPUSCULAR HEMOGLOBIN 32 pg (25-35); MEAN CORPUSCULAR HGB CONC 33 g/dL (31-37); MEAN CORPUSCULAR VOLUME 98 fL (79-100); MONO % 8 % (0-9); NEUT % 81 % (31-73); PLATELET COUNT 149 x10^3/uL (140-400); RED BLOOD COUNT 2.58 x10^6/uL (4.30-5.70); RED CELL DISTRIBUTION WIDTH 21.6 % (11.5-14.5); WHITE BLOOD COUNT 6.1 x10^3/uL (4.0-11.0)
[2017-06-25] MEDS: DEXTROSE 50% 25 GM / 50ML DISP.SYRIN. IV PRN (06:22)
[2017-06-25 06:40] LABS: ALBUMIN/GLOBULIN RATIO 1.3 (1.0-1.7); CALCIUM 8.3 mg/dL (8.5-10.1); CREATININE 2.1 mg/dL (0.7-1.3); MAGNESIUM 1.7 mg/dL (1.8-2.4); PHOSPHORUS 2.9 mg/dL (2.6-4.7); POTASSIUM 3.7 mmol/L (3.5-5.1); TOTAL BILIRUBIN 0.7 mg/dL (0.2-1.0); TOTAL PROTEIN 5.4 g/dL (6.4-8.2)
[2017-06-25] MEDS: LEVOTHYROXINE 88 MCG TABLET PO SCH (07:44)
[2017-06-25] MEDS: ATORVASTATIN CALCIUM 10 MG TABLET. PO SCH (07:45)
[2017-06-25] MEDS: predniSONE 20 MG TABLET PO SCH (07:45)
[2017-06-25] MEDS: METOPROLOL TART IMMED RELEASE 50 MG TABLET. PO SCH ×2 (07:45→20:48)
[2017-06-25] MEDS: CETIRIZINE HCL 10 MG TABLET. PO SCH (07:45)
[2017-06-25] MEDS: TACROLIMUS 1 MG CAPSULE PO SCH ×2 (07:45→20:48)
[2017-06-25] MEDS: azaTHIOprine 50 MG TABLET PO SCH (07:45)
[2017-06-25] MEDS: ASPIRIN CHEWABLE 81 MG TABLET. PO SCH (07:46)
--- NOTE | 2017-06-25 08:01 | RAD ---
Portable chest, 06/25/2017: History: Respiratory failure Comparison is made yesterday study. The ET tube tip lies well above the liliya. An NG tube remains in place although its tip is not visible. A right jugular central venous catheter extends to the level of the right innominate vein. The heart is enlarged and unchanged. There are patchy bilateral pulmonary infiltrates with vascular congestion and loss of vascular margination. There is pleural fluid contributing to the basilar opacities. The findings are most compatible with pulmonary edema, although a component of pneumonia cannot be excluded. The perihilar opacities have improved slightly since yesterday's study. There is no evidence of pneumothorax. IMPRESSION: 1. Stable tube positions. 2. Slight interval improvement in the bilateral pulmonary infiltrates, most compatible with pulmonary edema.
[2017-06-25 08:28] LABS: HCO3 ABG 25 mmol/L (21-28); PCO2 ABG 37 mmHg (35-46); PH ABG 7.45 (7.35-7.45); PO2 ABG 85 mmHg (65-108); SAT O2 ABG 96 % (92-99)
[2017-06-25 08:30] LABS: FIO2 ABG 40
[2017-06-25] MEDS: VANCOMYCIN PER PHARMACY MC PRN (08:40)
--- NOTE | 2017-06-25 08:53 | PDOC ---
PULMONARY PROGRESS NOTES Subjective OFF SEDATION OFF PRESSORS Vitals Vital Signs Date Time Temp Pulse Resp B/P (MAP) Pulse Ox O2 Delivery O2 Flow Rate FiO2 06/25/17 08:04 98.1 73 16 160/68 (98) 100 Ventilator 98.1 Cardiovascular: S1 Abdomen: Soft, Other (obese) Extremities: Other (right lymphedema, left BKA) Skin: Warm Labs Laboratory Tests Test 06/23/17 12:03 06/23/17 12:07 06/23/17 20:59 06/24/17 05:05 Glucose (Fingerstick) 107 mg/dL (70-99) 103 mg/dL (70-99) 151 mg/dL (70-99) White Blood Count 6.1 x10^3/uL (4.0-11.0) Red Blood Count 2.41 x10^6/uL (4.30-5.70) Hemoglobin 7.7 g/dL (13.0-17.5) Hematocrit 23.2 % (39.0-53.0) Mean Corpuscular Volume 96 fL (79-100) Mean Corpuscular Hemoglobin 32 pg (25-35) Mean Corpuscular Hemoglobin Concent 33 g/dL (31-37) Red Cell Distribution Width 21.6 % (11.5-14.5) Platelet Count 151 x10^3/uL (140-400) Neutrophils (%) (Auto) 84 % (31-73) Lymphocytes (%) (Auto) 10 % (24-48) Monocytes (%) (Auto) 7 % (0-9) Eosinophils (%) (Auto) 0 % (0-3) Basophils (%) (Auto) 0 % (0-3) Neutrophils # (Auto) 5.1 x10^3uL (1.8-7.7) Lymphocytes # (Auto) 0.6 x10^3/uL (1.0-4.8) Monocytes # (Auto) 0.4 x10^3/uL (0.0-1.1) Eosinophils # (Auto) 0.0 x10^3/uL (0.0-0.7) Basophils # (Auto) 0.0 x10^3/uL (0.0-0.2) Sodium Level 145 mmol/L (136-145) Potassium Level 3.7 mmol/L (3.5-5.1) Chloride Level 106 mmol/L (98-107) Carbon Dioxide Level 29 mmol/L (21-32) Anion Gap 10 (6-14) Blood Urea Nitrogen 18 mg/dL (8-26) Creatinine 2.1 mg/dL (0.7-1.3) Estimated GFR (Cockcroft-Gault) 31.0 BUN/Creatinine Ratio 9 (6-20) Glucose Level 96 mg/dL (70-99) Calcium Level 8.2 mg/dL (8.5-10.1) Phosphorus Level 2.2 mg/dL (2.6-4.7) Magnesium Level 1.5 mg/dL (1.8-2.4) Total Bilirubin 0.6 mg/dL (0.2-1.0) Aspartate Amino Transf (AST/SGOT) 19 U/L (15-37) Alanine Aminotransferase (ALT/SGPT) 12 U/L (16-63) Alkaline Phosphatase 66 U/L (46-116) Total Protein 5.8 g/dL (6.4-8.2) Albumin 3.5 g/dL (3.4-5.0) Albumin/Globulin Ratio 1.5 (1.0-1.7) Test 06/24/17 08:50 06/24/17 09:50 06/24/17 12:40 06/24/17 16:40 O2 Saturation 95 % (92-99) 95 % (92-99) Arterial Blood pH 7.44 (7.35-7.45) 7.39 (7.35-7.45) Arterial Blood pCO2 at Patient Temp 38 mmHg (35-46) 47 mmHg (35-46) Arterial Blood pO2 at Patient Temp 74 mmHg (65-108) 79 mmHg (65-108) Arterial Blood HCO3 25 mmol/L (21-28) 28 mmol/L (21-28) Arterial Blood Base Excess 1 mmol/L (-3-3) 2 mmol/L (-3-3) FiO2 40 40 White Blood Count 5.9 x10^3/uL (4.0-11.0) Red Blood Count 2.40 x10^6/uL (4.30-5.70) Hemoglobin 7.7 g/dL (13.0-17.5) Hematocrit 23.4 % (39.0-53.0) Mean Corpuscular Volume 98 fL (79-100) Mean Corpuscular Hemoglobin 32 pg (25-35) Mean Corpuscular Hemoglobin Concent 33 g/dL (31-37) Red Cell Distribution Width 21.4 % (11.5-14.5) Platelet Count 154 x10^3/uL (140-400) Vancomycin Level Trough 23.5 mcg/mL (10.0-20.0) Vancomycin Last Dose Date 06/23/17 Vancomycin Last Dose Time 1300 Test 06/24/17 21:35 06/25/17 00:05 06/25/17 05:56 06/25/17 06:00 Glucose (Fingerstick) 103 mg/dL (70-99) 103 mg/dL (70-99) 50 mg/dL (70-99) White Blood Count 6.1 x10^3/uL (4.0-11.0) Red Blood Count 2.58 x10^6/uL (4.30-5.70) Hemoglobin 8.2 g/dL (13.0-17.5) Hematocrit 25.1 % (39.0-53.0) Mean Corpuscular Volume 98 fL (79-100) Mean Corpuscular Hemoglobin 32 pg (25-35) Mean Corpuscular Hemoglobin Concent 33 g/dL (31-37) Red Cell Distribution Width 21.6 % (11.5-14.5) Platelet Count 149 x10^3/uL (140-400) Neutrophils (%) (Auto) 81 % (31-73) Lymphocytes (%) (Auto) 10 % (24-48) Monocytes (%) (Auto) 8 % (0-9) Eosinophils (%) (Auto) 1 % (0-3) Basophils (%) (Auto) 0 % (0-3) Neutrophils # (Auto) 4.9 x10^3uL (1.8-7.7) Lymphocytes # (Auto) 0.6 x10^3/uL (1.0-4.8) Monocytes # (Auto) 0.5 x10^3/uL (0.0-1.1) Eosinophils # (Auto) 0.0 x10^3/uL (0.0-0.7) Basophils # (Auto) 0.0 x10^3/uL (0.0-0.2) Sodium Level 145 mmol/L (136-145) Potassium Level 3.7 mmol/L (3.5-5.1) Chloride Level 108 mmol/L (98-107) Carbon Dioxide Level 29 mmol/L (21-32) Anion Gap 8 (6-14) Blood Urea Nitrogen 22 mg/dL (8-26) Creatinine 2.1 mg/dL (0.7-1.3) Estimated GFR (Cockcroft-Gault) 31.0 BUN/Creatinine Ratio 10 (6-20) Glucose Level 52 mg/dL (70-99) Calcium Level 8.3 mg/dL (8.5-10.1) Phosphorus Level 2.9 mg/dL (2.6-4.7) Magnesium Level 1.7 mg/dL (1.8-2.4) Total Bilirubin 0.7 mg/dL (0.2-1.0) Aspartate Amino Transf (AST/SGOT) 25 U/L (15-37) Alanine Aminotransferase (ALT/SGPT) 12 U/L (16-63) Alkaline Phosphatase 65 U/L (46-116) Total Protein 5.4 g/dL (6.4-8.2) Albumin 3.0 g/dL (3.4-5.0) Albumin/Globulin Ratio 1.3 (1.0-1.7) Test 06/25/17 06:08 06/25/17 07:45 Glucose (Fingerstick) 93 mg/dL (70-99) O2 Saturation 96 % (92-99) Arterial Blood pH 7.45 (7.35-7.45) Arterial Blood pCO2 at Patient Temp 37 mmHg (35-46) Arterial Blood pO2 at Patient Temp 85 mmHg (65-108) Arterial Blood HCO3 25 mmol/L (21-28) Arterial Blood Base Excess 1 mmol/L (-3-3) FiO2 40 Laboratory Tests Test 06/24/17 09:50 06/24/17 12:40 06/24/17 16:40 06/24/17 21:35 White Blood Count 5.9 x10^3/uL (4.0-11.0) Red Blood Count 2.40 x10^6/uL (4.30-5.70) Hemoglobin 7.7 g/dL (13.0-17.5) Hematocrit 23.4 % (39.0-53.0) Mean Corpuscular Volume 98 fL (79-100) Mean Corpuscular Hemoglobin 32 pg (25-35) Mean Corpuscular Hemoglobin Concent 33 g/dL (31-37) Red Cell Distribution Width 21.4 % (11.5-14.5) Platelet Count 154 x10^3/uL (140-400) Vancomycin Level Trough 23.5 mcg/mL (10.0-20.0) Vancomycin Last Dose Date 06/23/17 Vancomycin Last Dose Time 1300 O2 Saturation 95 % (92-99) Arterial Blood pH 7.39 (7.35-7.45) Arterial Blood pCO2 at Patient Temp 47 mmHg (35-46) Arterial Blood pO2 at Patient Temp 79 mmHg (65-108) Arterial Blood HCO3 28 mmol/L (21-28) Arterial Blood Base Excess 2 mmol/L (-3-3) FiO2 40 Glucose (Fingerstick) 103 mg/dL (70-99) Test 06/25/17 00:05 06/25/17 05:56 06/25/17 06:00 06/25/17 06:08 Glucose (Fingerstick) 103 mg/dL (70-99) 50 mg/dL (70-99) 93 mg/dL (70-99) White Blood Count 6.1 x10^3/uL (4.0-11.0) Red Blood Count 2.58 x10^6/uL (4.30-5.70) Hemoglobin 8.2 g/dL (13.0-17.5) Hematocrit 25.1 % (39.0-53.0) Mean Corpuscular Volume 98 fL (79-100) Mean Corpuscular Hemoglobin 32 pg (25-35) Mean Corpuscular Hemoglobin Concent 33 g/dL (31-37) Red Cell Distribution Width 21.6 % (11.5-14.5) Platelet Count 149 x10^3/uL (140-400) Neutrophils (%) (Auto) 81 % (31-73) Lymphocytes (%) (Auto) 10 % (24-48) Monocytes (%) (Auto) 8 % (0-9) Eosinophils (%) (Auto) 1 % (0-3) Basophils (%) (Auto) 0 % (0-3) Neutrophils # (Auto) 4.9 x10^3uL (1.8-7.7) Lymphocytes # (Auto) 0.6 x10^3/uL (1.0-4.8) Monocytes # (Auto) 0.5 x10^3/uL (0.0-1.1) Eosinophils # (Auto) 0.0 x10^3/uL (0.0-0.7) Basophils # (Auto) 0.0 x10^3/uL (0.0-0.2) Sodium Level 145 mmol/L (136-145) Potassium Level 3.7 mmol/L (3.5-5.1) Chloride Level 108 mmol/L (98-107) Carbon Dioxide Level 29 mmol/L (21-32) Anion Gap 8 (6-14) Blood Urea Nitrogen 22 mg/dL (8-26) Creatinine 2.1 mg/dL (0.7-1.3) Estimated GFR (Cockcroft-Gault) 31.0 BUN/Creatinine Ratio 10 (6-20) Glucose Level 52 mg/dL (70-99) Calcium Level 8.3 mg/dL (8.5-10.1) Phosphorus Level 2.9 mg/dL (2.6-4.7) Magnesium Level 1.7 mg/dL (1.8-2.4) Total Bilirubin 0.7 mg/dL (0.2-1.0) Aspartate Amino Transf (AST/SGOT) 25 U/L (15-37) Alanine Aminotransferase (ALT/SGPT) 12 U/L (16-63) Alkaline Phosphatase 65 U/L (46-116) Total Protein 5.4 g/dL (6.4-8.2) Albumin 3.0 g/dL (3.4-5.0) Albumin/Globulin Ratio 1.3 (1.0-1.7) Test 06/25/17 07:45 O2 Saturation 96 % (92-99) Arterial Blood pH 7.45 (7.35-7.45) Arterial Blood pCO2 at Patient Temp 37 mmHg (35-46) Arterial Blood pO2 at Patient Temp 85 mmHg (65-108) Arterial Blood HCO3 25 mmol/L (21-28) Arterial Blood Base Excess 1 mmol/L (-3-3) FiO2 40 Medications Active Scripts Medications Dose Route/Sig Max Daily Dose Days Date Category Amlodipine Besylate 5 Mg Tablet 10 Mg PO DAILY 06/22/17 Reported Azathioprine 50 Mg Tablet 4 Tab PO DAILY 06/22/17 Reported Docusate Sodium 100 Mg Capsule 1 Cap PO TID PRN PRN 06/22/17 Reported Ferrous Sulfate 325 Mg Tablet 1 Tab PO BIDAC 06/22/17 Reported Ondansetron Hcl 4 Mg Tablet 1 Tab PO PRN Q8HRS PRN 06/22/17 Reported Prednisone 10 Mg Tablet 5 Mg PO DAILY 06/22/17 Reported Thiamine Hcl 100 Mg Tablet 100 Mg PO 06/22/17 Reported Nystatin-Triamcinolone Cream (Nystatin/Triamcin) 15 Gm Cream..g. 1 Alexis TP BID 06/22/17 Reported Pantoprazole Sodium 40 Mg Tablet.dr 1 Tab PO DAILY 06/22/17 Reported Tacrolimus 0.5 Mg Capsule 0.5 Mg PO DAILY 06/22/17 Reported Tylenol (Acetaminophen) 325 Mg Tablet 1 Tab PO PRN Q6HRS PRN 06/22/17 Reported Haloperidol 0.5 Mg Tablet 0.25 Mg PO PRN Q8HRS PRN 06/22/17 Reported Metoprolol Tartrate 50 Mg Tablet 3 Tab PO BID 06/22/17 Reported Keflex (Cephalexin) 500 Mg Capsule 500 Mg PO QID 5 06/30/15 Rx Novolog Flexpen (Insulin Aspart) 100 Unit/1 Ml Insuln.pen 22 Unit SQ AC SUPPER 06/26/15 Reported Novolog Flexpen (Insulin Aspart) 100 Unit/1 Ml Insuln.pen 18 Unit SQ AC LUNCH 06/26/15 Reported Novolog Flexpen (Insulin Aspart) 100 Unit/1 Ml Insuln.pen 10 Unit SQ AC BREAKFAST 06/26/15 Reported Levothyroxine Sodium 88 Mcg Tablet 1 Tab PO DAILY 06/24/15 Reported Atorvastatin Calcium 10 Mg Tablet 1 Tab PO DAILY 06/24/15 Reported Loratadine 10 Mg Tablet 1 Tab PO DAILY 06/24/15 Reported Hydrochlorothiazide Tablet (Hydrochlorothiazide) 25 Mg Tablet 25 Mg PO DAILY 06/24/15 Reported Pepcid Ac (Famotidine) 20 Mg Tablet 20 Mg PO HS 06/24/15 Reported Tacrolimus 1 Mg Capsule 1 Mg PO BID 06/24/15 Reported Men's Multivitamin Gummies (Folic Acid/Multivit-Minerals) 200 Mcg Tab.chew 200 Mcg PO 06/24/15 Reported Aspirin 81 Mg Tab.chew 1 Tab PO DAILY 06/24/15 Reported Lantus (Insulin Glargine,Hum.rec.anlog) 100 Unit/1 Ml Vial 70 Unit SQ QHS 06/24/15 Reported Alendronate Sodium 70 Mg Tablet 70 Mg PO WEEKLY 06/24/15 Reported Comments CXR NO CHANGE TODAY Impression . 1. Acute hypercapnic respiratory failure secondary to multifactorial in nature 2. Abnormal ct chest with moderate effusions/ some aspirated gastro graffin 3. Renal transplant and acute kidney injury. 4. Methicillin-resistant Staphylococcus aureus infection. 5. Hypernatremia 6. Severe protein-calorie malnutrition POA 7. Morbid obesity 8. Suspect BEVERLY/OHS 9. Acute/Chronic Cor Pulmonale 10. Chronic Lower Ext Lymphedema CT Impression: 1. Moderate bilateral pleural effusions with passive atelectasis of the adjacent lung parenchymal. Underlying pneumonia not ruled out. 2. No interlobular septal thickening in the aerated lungs to suggest pulmonary edema. 3. Nodular high attenuation in the bilateral lower lobes may represent parenchymal calcifications or aspirated oral contrast from previous studies. Plan . WILL HOLD SEDATION FOR POSSIBLE TRIAL D/W DAUGHTER IN LAW COMPLEX SITUATION WITH MULTIPLE CO-MORBIDITIES sprayer automatic spray machine prognosis is poor may need to consider palliative care 1. HOLD SEDATION 2. echocardiogram with moderate AI and secondary pulmonary HTN/ Normal EF 3. off Levophed 4. Nutritional support 5. will need sleep study 6. antibiotics 7. Stress ulcer prophylaxis and DVT prophylaxis. CCT 35 MINUTES SHARATH VALLE MD Jun 25, 2017 08:53
--- NOTE | 2017-06-25 10:48 | PDOC ---
PROGRESS NOTES Chief Complaint Chief Complaint Acute hypercarbic, hypoxic respir failure ASSESSMENT AND PLAN: 1. CHF exacerbation: no previous hx, poss driven by afib. echo on 06/22 with normal EF, pAP 52. CT with bilat effusions, suspected aspir PNA. weaning trial today 2. Afib: rate controlled. cardiology following. apparently, family unaware of existing hx; per cardiology, pt has declined OAC in past 3. Aspir PNA: bilat with PO contrast in lower lungs. on broad spectrum Abx 4. Anemia: significant drop of 2+g since admit, now stable ~8. no obvious sign of massive bleeding. both urine and respir secretions pink. check OB stool (no BM in 2 days). poss chronic anemia (renal insufficiency, inflammation ) with initial intravascular contraction 5. REJI on CKD3: s/p renal transplant. sl creat bump 2/2 vasomotor etiologies. essentially stable. nephrology following 6. Immunocompromise: on mult immunosuppressants post renal transplant 7. HTN: borderline control on BB. BEATA-I/ARB is ok by nephrology 8. DM2: currently tight control with home levemir dose. decrease some monitor with ISS 9. BEVERLY: on CPAP at home, not in SNF over past 2 weeks 10. Nutrition: OG tube feeds 11. Prophylaxis: H2B, lovenox History of Present Illness History of Present Illness intubated, awake, following commands Vitals Vitals Vital Signs Date Time Temp Pulse Resp B/P (MAP) Pulse Ox O2 Delivery O2 Flow Rate FiO2 06/25/17 10:00 69 16 148/59 (88) 100 06/25/17 09:00 Ventilator 06/25/17 08:04 98.1 98.1 Physical Exam General: Alert, No acute distress Heart: Other (AFIB rate controlled; distant heart sounds) Lungs: Clear (ant) Abdomen: Soft, Other (obese) Extremities: Other ( s/p L AKA) Skin: Other (chronic venous stasis changes) Labs LABS Laboratory Tests Test 06/24/17 12:40 06/24/17 16:40 06/24/17 21:35 06/25/17 00:05 Vancomycin Level Trough 23.5 mcg/mL (10.0-20.0) Vancomycin Last Dose Date 06/23/17 Vancomycin Last Dose Time 1300 O2 Saturation 95 % (92-99) Arterial Blood pH 7.39 (7.35-7.45) Arterial Blood pCO2 at Patient Temp 47 mmHg (35-46) Arterial Blood pO2 at Patient Temp 79 mmHg (65-108) Arterial Blood HCO3 28 mmol/L (21-28) Arterial Blood Base Excess 2 mmol/L (-3-3) FiO2 40 Glucose (Fingerstick) 103 mg/dL (70-99) 103 mg/dL (70-99) Test 06/25/17 05:56 06/25/17 06:00 06/25/17 06:08 06/25/17 07:45 Glucose (Fingerstick) 50 mg/dL (70-99) 93 mg/dL (70-99) White Blood Count 6.1 x10^3/uL (4.0-11.0) Red Blood Count 2.58 x10^6/uL (4.30-5.70) Hemoglobin 8.2 g/dL (13.0-17.5) Hematocrit 25.1 % (39.0-53.0) Mean Corpuscular Volume 98 fL (79-100) Mean Corpuscular Hemoglobin 32 pg (25-35) Mean Corpuscular Hemoglobin Concent 33 g/dL (31-37) Red Cell Distribution Width 21.6 % (11.5-14.5) Platelet Count 149 x10^3/uL (140-400) Neutrophils (%) (Auto) 81 % (31-73) Lymphocytes (%) (Auto) 10 % (24-48) Monocytes (%) (Auto) 8 % (0-9) Eosinophils (%) (Auto) 1 % (0-3) Basophils (%) (Auto) 0 % (0-3) Neutrophils # (Auto) 4.9 x10^3uL (1.8-7.7) Lymphocytes # (Auto) 0.6 x10^3/uL (1.0-4.8) Monocytes # (Auto) 0.5 x10^3/uL (0.0-1.1) Eosinophils # (Auto) 0.0 x10^3/uL (0.0-0.7) Basophils # (Auto) 0.0 x10^3/uL (0.0-0.2) Sodium Level 145 mmol/L (136-145) Potassium Level 3.7 mmol/L (3.5-5.1) Chloride Level 108 mmol/L (98-107) Carbon Dioxide Level 29 mmol/L (21-32) Anion Gap 8 (6-14) Blood Urea Nitrogen 22 mg/dL (8-26) Creatinine 2.1 mg/dL (0.7-1.3) Estimated GFR (Cockcroft-Gault) 31.0 BUN/Creatinine Ratio 10 (6-20) Glucose Level 52 mg/dL (70-99) Calcium Level 8.3 mg/dL (8.5-10.1) Phosphorus Level 2.9 mg/dL (2.6-4.7) Magnesium Level 1.7 mg/dL (1.8-2.4) Total Bilirubin 0.7 mg/dL (0.2-1.0) Aspartate Amino Transf (AST/SGOT) 25 U/L (15-37) Alanine Aminotransferase (ALT/SGPT) 12 U/L (16-63) Alkaline Phosphatase 65 U/L (46-116) Total Protein 5.4 g/dL (6.4-8.2) Albumin 3.0 g/dL (3.4-5.0) Albumin/Globulin Ratio 1.3 (1.0-1.7) O2 Saturation 96 % (92-99) Arterial Blood pH 7.45 (7.35-7.45) Arterial Blood pCO2 at Patient Temp 37 mmHg (35-46) Arterial Blood pO2 at Patient Temp 85 mmHg (65-108) Arterial Blood HCO3 25 mmol/L (21-28) Arterial Blood Base Excess 1 mmol/L (-3-3) FiO2 40 Nutrition Consultation Dietary Evaluation: Recommendations by RD: Increase Calorie Intake, Add supplement feedings Comments: Diabetisource AC@10 ml/hr, increase 10 ml/hr to goal rate 60 ml/hr w/75 ml water flushes q4 hrs - watching renal labs Expected Outcomes/Goals: TF tolerated at goal rate and providing > 60% est needs Interpretation of weight loss: >7.5% in 3 months Malnutrition Findings: Food and Nutrition Intake (Mod: <75% est energy req 7days Malnutrition related to morbid: BMI>or equal to 40 Malnutrition related to morbid: Yes Weight Status: Morbidly Obese SHAYY MONET MD Jun 25, 2017 10:48
[2017-06-25 13:11] LABS: HCO3 ABG 27 mmol/L (21-28); PCO2 ABG 42 mmHg (35-46); PH ABG 7.42 (7.35-7.45); PO2 ABG 92 mmHg (65-108); SAT O2 ABG 96 % (92-99)
[2017-06-25 13:15] LABS: FIO2 ABG 40
[2017-06-25] MEDS: ENOXAPARIN 40 MG/0.4 ML SYRINGE. SQ SCH ×2 (13:52→20:48)
--- NOTE | 2017-06-25 15:45 | PDOC ---
CARDIO Progress Notes Date and Time Date of Service 06/25/2017 Time of Evaluation 1530 Subjective Subjective: No Chest Pain, No Palpitations, Other (extubated) Vitals Vitals Vital Signs Date Time Temp Pulse Resp B/P (MAP) Pulse Ox O2 Delivery O2 Flow Rate FiO2 06/25/17 15:00 82 20 148/74 (98) 100 Simple Mask 06/25/17 14:25 12.0 06/25/17 12:00 98.5 98.5 Weight Weight [ ] Input and Output Intake and Output Intake and Output 06/25/17 06:59 Intake Total 2243 ml Output Total 1855 ml Balance 388 ml IV Total 852 ml Tube Feeding 1276 ml Blood Product IV Normal Saline Flush 115 ml Output Urine Total 1855 ml # Bowel Movements 2 Laboratory Labs Laboratory Tests Test 06/24/17 16:40 06/24/17 21:35 06/25/17 00:05 06/25/17 05:56 O2 Saturation 95 % (92-99) Arterial Blood pH 7.39 (7.35-7.45) Arterial Blood pCO2 at Patient Temp 47 mmHg (35-46) Arterial Blood pO2 at Patient Temp 79 mmHg (65-108) Arterial Blood HCO3 28 mmol/L (21-28) Arterial Blood Base Excess 2 mmol/L (-3-3) FiO2 40 Glucose (Fingerstick) 103 mg/dL (70-99) 103 mg/dL (70-99) 50 mg/dL (70-99) Test 06/25/17 06:00 06/25/17 06:08 06/25/17 07:45 06/25/17 12:55 White Blood Count 6.1 x10^3/uL (4.0-11.0) Red Blood Count 2.58 x10^6/uL (4.30-5.70) Hemoglobin 8.2 g/dL (13.0-17.5) Hematocrit 25.1 % (39.0-53.0) Mean Corpuscular Volume 98 fL (79-100) Mean Corpuscular Hemoglobin 32 pg (25-35) Mean Corpuscular Hemoglobin Concent 33 g/dL (31-37) Red Cell Distribution Width 21.6 % (11.5-14.5) Platelet Count 149 x10^3/uL (140-400) Neutrophils (%) (Auto) 81 % (31-73) Lymphocytes (%) (Auto) 10 % (24-48) Monocytes (%) (Auto) 8 % (0-9) Eosinophils (%) (Auto) 1 % (0-3) Basophils (%) (Auto) 0 % (0-3) Neutrophils # (Auto) 4.9 x10^3uL (1.8-7.7) Lymphocytes # (Auto) 0.6 x10^3/uL (1.0-4.8) Monocytes # (Auto) 0.5 x10^3/uL (0.0-1.1) Eosinophils # (Auto) 0.0 x10^3/uL (0.0-0.7) Basophils # (Auto) 0.0 x10^3/uL (0.0-0.2) Sodium Level 145 mmol/L (136-145) Potassium Level 3.7 mmol/L (3.5-5.1) Chloride Level 108 mmol/L (98-107) Carbon Dioxide Level 29 mmol/L (21-32) Anion Gap 8 (6-14) Blood Urea Nitrogen 22 mg/dL (8-26) Creatinine 2.1 mg/dL (0.7-1.3) Estimated GFR (Cockcroft-Gault) 31.0 BUN/Creatinine Ratio 10 (6-20) Glucose Level 52 mg/dL (70-99) Calcium Level 8.3 mg/dL (8.5-10.1) Phosphorus Level 2.9 mg/dL (2.6-4.7) Magnesium Level 1.7 mg/dL (1.8-2.4) Total Bilirubin 0.7 mg/dL (0.2-1.0) Aspartate Amino Transf (AST/SGOT) 25 U/L (15-37) Alanine Aminotransferase (ALT/SGPT) 12 U/L (16-63) Alkaline Phosphatase 65 U/L (46-116) Total Protein 5.4 g/dL (6.4-8.2) Albumin 3.0 g/dL (3.4-5.0) Albumin/Globulin Ratio 1.3 (1.0-1.7) Glucose (Fingerstick) 93 mg/dL (70-99) O2 Saturation 96 % (92-99) 96 % (92-99) Arterial Blood pH 7.45 (7.35-7.45) 7.42 (7.35-7.45) Arterial Blood pCO2 at Patient Temp 37 mmHg (35-46) 42 mmHg (35-46) Arterial Blood pO2 at Patient Temp 85 mmHg (65-108) 92 mmHg (65-108) Arterial Blood HCO3 25 mmol/L (21-28) 27 mmol/L (21-28) Arterial Blood Base Excess 1 mmol/L (-3-3) 2 mmol/L (-3-3) FiO2 40 40 Physical Exam HEENT: Neck Supple W Full Motion Chest: Symmetric LUNGS: Other (basilar crackles) Heart: S1S2, irregularly irregular (AFIB) Abdomen: Soft N/T, Other (obese) Extremities: No Calf Tenderness Neurology: follow commands, other (drowsy) Assessment Assessment 1. Acute on chronic respiratory failure: extubated, doing better. Pulmonary following 2. Acute on chronic diastolic CHF: improved. EF 55% with normal wall motion 3. Uncontrolled BEVERLY/moderate pulmonary HTN: CPAP did not get restarted in SNU. 4. Metabolic/hypoxic encephalopathy 5. Chronic AFIB/LBBB: remains rate controlled 6. REJI on CKD: per nephrology 7. Renal transplant recipient with chronic immunosuppression 8. HTN: controlled off pressors. 9. DM2/HLP 10. Hypothyroidism 11. PVD: severe lymphedema with dermatitis. LAKA 12. Protein malnutrition 13. Morbid obesity 14. Moderate AI Recommendations 1. Refused OAC in the pst, continue with ASA for stroke prevention. Continue with BB for rate control. Start on imdur 2. Continue with secondary prevention. Follow up in office in 4 weeks. Will follow along peripherally. ZEENAT CARRASCO APRN Jun 25, 2017 15:45
--- NOTE | 2017-06-25 17:04 | PDOC ---
SUBJECTIVE ROS Renal Txp, CKD III Pt apparently self-extubated appears awake and conversant. still obviously disoriented to palce and time OBJECTIVE Vital Signs Vital Signs Date Time Temp Pulse Resp B/P (MAP) Pulse Ox O2 Delivery O2 Flow Rate FiO2 06/25/17 16:00 98.3 78 20 152/70 (97) 100 Simple Mask 12.0 98.3 I & 0 Intake and Output 06/25/17 07:00 Intake Total 2303 ml Output Total 1930 ml Balance 373 ml Intake Oral 0 ml IV Total 852 ml Tube Feeding 1336 ml Blood Product IV Normal Saline Flush 115 ml Output Urine Total 1930 ml # Bowel Movements 2 PHYSICAL EXAM Physical Exam General Appearance: No w off the VENT, In no Distress; morbidly obese WM Eyes: Sclera Anicteric- Conjunctiva Normal EN: No EN Drainage Mucous Memb. dryish; FM in palce Neck: no JVD no JVP Supple no Thyromegaly; short thick neck CVS: S1 S2 no Murmur No Gallop No Rub Ch Lymph Edema (? elephantiasis) ; Upper ext with +2 edema pitting in nature. Resp: no Rales + end exp Rhonchi min Acc. Muscle use GI: BS +ve NO Bruit Non Tender Non Distended; Morbidly obese : no CVA tenderness; no Suprapubic Tenderness; unable to palpate Txp given obesity Assessment & Plan: CKD -T stage III/ IV - Creat has been as high as 2.3ish in the past. 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 this may be his new baseline Renal Txp - ct current immunosuppression. May need NGT placed back in Edema/ Anasarca - suspect Sev Rt Heart failure - ? Role for RHC - somewhat better after IV Alb H/o Kidney stone - none seen on US Oliguria - resolved, UO is now brisk Nutrition - await swallow eval COMMENT/RELEVANT DATA Meds Current Medications Medications (Trade) Dose Ordered Sig/Ivett Start Time Stop Time Status Last Admin Dose Admin Acetaminophen (Tylenol) 650 mg PRN Q4HRS PRN 06/22/17 06:45 06/23/17 06:44 DC Albumin Human 200 ml @ 100 mls/hr Q6HRS 06/23/17 06:00 06/24/17 07:59 DC 06/24/17 05:47 100 MLS/HR Aspirin (Children'S Aspirin) 81 mg DAILY 06/22/17 12:00 06/25/17 07:46 81 MG Atorvastatin Calcium (Lipitor) 10 mg DAILY 06/22/17 12:00 06/25/17 07:45 10 MG Azathioprine (Imuran) 50 mg DAILY 06/22/17 12:00 06/25/17 07:45 50 MG Cetirizine HCl (ZyrTEC) 10 mg DAILY 06/22/17 12:00 06/25/17 07:45 10 MG Chlorhexidine Gluconate (Peridex) 15 ml BID 06/25/17 21:00 Dextrose (Dextrose 50%-Water Syringe) 12.5 gm PRN Q15MIN PRN 06/25/17 06:15 06/25/17 06:22 12.5 GM Enoxaparin Sodium (Lovenox 40mg Syringe) 40 mg BID 06/25/17 12:00 06/25/17 13:52 40 MG Etomidate (Amidate) 20 mg STK-MED ONCE 06/22/17 05:47 06/22/17 05:48 DC Famotidine (Pepcid) 20 mg HS 06/22/17 21:00 06/24/17 20:22 20 MG Fentanyl Citrate (Fentanyl 2ml Vial) 25 mcg PRN Q4HRS PRN 06/23/17 15:45 06/23/17 18:35 25 MCG Furosemide (Lasix) 20 mg 1X ONCE 06/24/17 11:15 06/24/17 11:16 DC 06/24/17 12:59 20 MG Insulin Detemir (Levemir) 55 units QHS 06/25/17 21:00 Isosorbide Mononitrate (Imdur) 30 mg DAILY 06/26/17 09:00 Levothyroxine Sodium (Synthroid) 88 mcg DAILYAC 06/22/17 12:00 06/25/17 07:44 88 MCG Magnesium Sulfate/ Dextrose 50 ml @ 25 mls/hr 1X ONCE 06/24/17 06:30 06/24/17 08:29 DC 06/24/17 06:32 25 MLS/HR Metoprolol Tartrate (Lopressor) 50 mg BID 06/22/17 21:00 06/25/17 07:45 50 MG Midazolam HCl (Versed) 2 mg 1X ONCE 06/22/17 07:30 06/22/17 07:31 DC 06/22/17 07:30 2 MG Norepinephrine Bitartrate 250 ml @ 0 mls/hr CONT PRN 06/22/17 08:30 06/22/17 13:02 5 MLS/HR Nystatin (Nystop) 1 ana BID 06/25/17 21:00 Ondansetron HCl (Zofran) 4 mg PRN Q8HRS PRN 06/22/17 06:45 06/23/17 06:44 DC Piperacillin Sod/ Tazobactam Sod (Zosyn Per Pharmacy) 1 each PRN DAILY PRN 06/22/17 11:00 Piperacillin Sod/ Tazobactam Sod (Zosyn) 4.5 gm Q6HRS 06/22/17 12:00 06/25/17 11:23 4.5 GM Potassium Phosphate 13.6 mmol/Sodium Chloride 104.5333 ml @ 52.267 m... Q2H 06/24/17 11:00 06/24/17 16:59 DC 06/24/17 18:07 52.267 MLS/HR Prednisone (Prednisone) 20 mg DAILY 06/22/17 12:00 06/25/17 07:45 20 MG Propofol 100 ml @ 0 mls/hr CONT PRN 06/22/17 06:30 06/25/17 03:20 0 MLS/HR Rocuronium [place] (Zemuron) 50 mg STK-MED ONCE 06/22/17 05:48 06/22/17 05:49 DC Sodium Chloride 1,000 ml @ 999 mls/hr 1X ONCE 06/22/17 10:45 06/22/17 11:45 DC 06/22/17 14:32 999 MLS/HR Tacrolimus (Prograf) 1 mg BID 06/22/17 12:00 06/25/17 07:45 1 MG Vancomycin HCl 1 each 1X ONCE 06/24/17 12:30 06/24/17 12:31 DC 06/24/17 12:30 1 EACH Vancomycin HCl (Vanco Per Pharmacy) 1 each PRN DAILY PRN 06/22/17 11:00 06/25/17 08:40 1 EACH Vancomycin HCl 2 gm/Dextrose/ Sodium Chloride 500 ml @ 250 mls/hr Q48H 06/26/17 13:00 Lab Laboratory Tests Test 06/24/17 21:35 06/25/17 00:05 06/25/17 05:56 06/25/17 06:00 Glucose (Fingerstick) 103 mg/dL (70-99) 103 mg/dL (70-99) 50 mg/dL (70-99) White Blood Count 6.1 x10^3/uL (4.0-11.0) Red Blood Count 2.58 x10^6/uL (4.30-5.70) Hemoglobin 8.2 g/dL (13.0-17.5) Hematocrit 25.1 % (39.0-53.0) Mean Corpuscular Volume 98 fL (79-100) Mean Corpuscular Hemoglobin 32 pg (25-35) Mean Corpuscular Hemoglobin Concent 33 g/dL (31-37) Red Cell Distribution Width 21.6 % (11.5-14.5) Platelet Count 149 x10^3/uL (140-400) Neutrophils (%) (Auto) 81 % (31-73) Lymphocytes (%) (Auto) 10 % (24-48) Monocytes (%) (Auto) 8 % (0-9) Eosinophils (%) (Auto) 1 % (0-3) Basophils (%) (Auto) 0 % (0-3) Neutrophils # (Auto) 4.9 x10^3uL (1.8-7.7) Lymphocytes # (Auto) 0.6 x10^3/uL (1.0-4.8) Monocytes # (Auto) 0.5 x10^3/uL (0.0-1.1) Eosinophils # (Auto) 0.0 x10^3/uL (0.0-0.7) Basophils # (Auto) 0.0 x10^3/uL (0.0-0.2) Sodium Level 145 mmol/L (136-145) Potassium Level 3.7 mmol/L (3.5-5.1) Chloride Level 108 mmol/L (98-107) Carbon Dioxide Level 29 mmol/L (21-32) Anion Gap 8 (6-14) Blood Urea Nitrogen 22 mg/dL (8-26) Creatinine 2.1 mg/dL (0.7-1.3) Estimated GFR (Cockcroft-Gault) 31.0 BUN/Creatinine Ratio 10 (6-20) Glucose Level 52 mg/dL (70-99) Calcium Level 8.3 mg/dL (8.5-10.1) Phosphorus Level 2.9 mg/dL (2.6-4.7) Magnesium Level 1.7 mg/dL (1.8-2.4) Total Bilirubin 0.7 mg/dL (0.2-1.0) Aspartate Amino Transf (AST/SGOT) 25 U/L (15-37) Alanine Aminotransferase (ALT/SGPT) 12 U/L (16-63) Alkaline Phosphatase 65 U/L (46-116) Total Protein 5.4 g/dL (6.4-8.2) Albumin 3.0 g/dL (3.4-5.0) Albumin/Globulin Ratio 1.3 (1.0-1.7) Test 06/25/17 06:08 06/25/17 07:45 06/25/17 12:55 Glucose (Fingerstick) 93 mg/dL (70-99) O2 Saturation 96 % (92-99) 96 % (92-99) Arterial Blood pH 7.45 (7.35-7.45) 7.42 (7.35-7.45) Arterial Blood pCO2 at Patient Temp 37 mmHg (35-46) 42 mmHg (35-46) Arterial Blood pO2 at Patient Temp 85 mmHg (65-108) 92 mmHg (65-108) Arterial Blood HCO3 25 mmol/L (21-28) 27 mmol/L (21-28) Arterial Blood Base Excess 1 mmol/L (-3-3) 2 mmol/L (-3-3) FiO2 40 40 Other A kidney is visualized within the right lower quadrant consistent with a transplant kidney. The kidney measures 13.2 x 6.4 x 4.7 cm. Blood flow is seen within the kidney and renal hilum. A single measured resistive index of 0.7 is within upper limits of normal. No hydronephrosis is seen. There is somewhat limited visualization of the kidney, limiting assessment for small lesions. No definite nephrolithiasis is seen. IMPRESSION: No hydronephrosis or definite nephrolithiasis seen. SCHUYLER GALAVIZ MD Jun 25, 2017 17:04
--- NOTE | 2017-06-25 18:55 | RAD ---
Single AP abdominal radiograph 06/25/2017 Clinical indication: NG placement. COMPARISON: None. FINDINGS: Single semiupright portable AP view of the upper abdomen for purposes of NG tube placement localization. There is a transesophageal gastric tube coursing below the level the hemidiaphragms with the distal tip overlying the gastric antrum. IMPRESSION: Gastric tube, as detailed. Electronically signed by: Fidencio Montoya MD (06/25/2017 6:51 PM) [facility]
[2017-06-25] MEDS: FAMOTIDINE 20 MG TABLET. PO SCH (20:48)
[2017-06-25] MEDS: INSULIN DETEMIR 300 UNITS/3 ML INSULN.PEN. SQ SCH ×2 (20:50→20:52)
[2017-06-25] MEDS: NYSTATIN TOPICAL POWDER 15GM BOTTLE. TP SCH (20:51)
[2017-06-25] MEDS ORDERED: CHLORHEXIDINE 0.12% 15 ML MOUTHWASH. SWSP SCH (21:00)
[2017-06-26] VITALS (24 sets, daily range): BP systolic 140–181; BP diastolic 49–78
[2017-06-26] MEDS: PIPERACILLIN/TAZO IV Push 4.5 GM VIAL. IVP SCH ×3 (05:49→17:25)
[2017-06-26 06:07] LABS: BASO % 0 % (0-3); EOS % 1 % (0-3); HEMATOCRIT 26.4 % (39.0-53.0); HEMOGLOBIN 8.5 g/dL (13.0-17.5); LYMPH # 0.7 x10^3/uL (1.0-4.8); LYMPH % 12 % (24-48); MEAN CORPUSCULAR HEMOGLOBIN 32 pg (25-35); MEAN CORPUSCULAR HGB CONC 32 g/dL (31-37); MEAN CORPUSCULAR VOLUME 99 fL (79-100); MONO % 10 % (0-9); NEUT % 77 % (31-73); PLATELET COUNT 147 x10^3/uL (140-400); RED BLOOD COUNT 2.68 x10^6/uL (4.30-5.70); RED CELL DISTRIBUTION WIDTH 21.4 % (11.5-14.5); WHITE BLOOD COUNT 5.8 x10^3/uL (4.0-11.0)
[2017-06-26 06:51] LABS: ALBUMIN 2.8 g/dL (3.4-5.0); CALCIUM 8.4 mg/dL (8.5-10.1); CREATININE 2.1 mg/dL (0.7-1.3); PHOSPHORUS 3.1 mg/dL (2.6-4.7); POTASSIUM 3.7 mmol/L (3.5-5.1); TOTAL BILIRUBIN 0.7 mg/dL (0.2-1.0); TOTAL PROTEIN 5.5 g/dL (6.4-8.2)
--- NOTE | 2017-06-26 07:57 | RAD ---
Portable chest, 06/26/2017: History: Respiratory failure Comparison is made to yesterday's study. The ET tube has been removed. An NG tube extends into the stomach. A right jugular central venous catheter extends to the junction of the right innominate vein and the superior vena cava. The heart is enlarged. The pulmonary vascularity is congested with loss of vascular margination. There are ongoing parahilar and basilar infiltrates similar to those seen on yesterday's exam. There is pleural fluid contributing to the basilar opacities, left greater right. The right hemidiaphragm is better defined, probably due to differences in patient positioning. No new abnormality is seen. IMPRESSION: Moderate ongoing pulmonary infiltrates most compatible with pulmonary edema, with bilateral pleural fluid, left greater than right.
[2017-06-26] MEDS: ISOSORBIDE MONONITRATE ER 30 MG TAB.ER.24H PO SCH (09:00)
--- NOTE | 2017-06-26 09:12 | PDOC ---
SUBJECTIVE ROS CKD -T + Renal Txp uncomfortable with FMS CVS: no Orthopnea, no CP RESP: no SOB, no SHELTON GI: no Nausea, no Vomiting : no Dysuria, no Urgency OBJECTIVE Vital Signs Vital Signs Date Time Temp Pulse Resp B/P (MAP) Pulse Ox O2 Delivery O2 Flow Rate FiO2 06/26/17 06:00 71 24 153/57 (89) 94 Room Air 06/26/17 04:00 97.8 97.8 06/26/17 03:00 3.0 I & 0 Intake and Output 06/26/17 07:00 Intake Total 797 ml Output Total 2078 ml Balance -1281 ml Intake Oral 0 ml IV Total 142 ml Tube Feeding 550 ml Other 105 ml Output Urine Total 2068 ml Stool Total 10 ml # Bowel Movements 1 PHYSICAL EXAM Physical Exam General Appearance: Awake but still drowsy, In no Distress; morbidly obese WM Eyes: Sclera Anicteric- Conjunctiva Normal EN: No EN Drainage Mucous Memb. dryish; ; NGT inp alce Neck: no JVD no JVP Supple no Thyromegaly; short thick neck CVS: S1 S2 no Murmur No Gallop No Rub Ch Lymph Edema (? elephantiasis) ; Upper ext with + edema pitting in nature. Resp: no Rales rare Rhonchi no Acc. Muscle use GI: BS +ve NO Bruit Non Tender Non Distended; Morbidly obese : no CVA tenderness; no Suprapubic Tenderness; unable to palpate Txp given obesity Assessment & Plan: CKD -T stage III/ IV - Creat has been as high as 2.3ish in the past. 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 this may be his new baseline Renal Txp - ct current immunosuppression. May need NGT placed back in Edema/ Anasarca - suspect Sev Rt Heart failure - ? Role for RHC - somewhat better after IV Alb Nutrition - await swallow eval - PPN for now ^Na - PPN for now pending passing swallow eval COMMENT/RELEVANT DATA Meds Current Medications Medications (Trade) Dose Ordered Sig/Ivett Start Time Stop Time Status Last Admin Dose Admin Acetaminophen (Tylenol) 650 mg PRN Q4HRS PRN 06/22/17 06:45 06/23/17 06:44 DC Albumin Human 200 ml @ 100 mls/hr Q6HRS 06/23/17 06:00 06/24/17 07:59 DC 06/24/17 05:47 100 MLS/HR Aspirin (Children'S Aspirin) 81 mg DAILY 06/22/17 12:00 06/25/17 07:46 81 MG Atorvastatin Calcium (Lipitor) 10 mg DAILY 06/22/17 12:00 06/25/17 07:45 10 MG Azathioprine (Imuran) 50 mg DAILY 06/22/17 12:00 06/25/17 07:45 50 MG Cetirizine HCl (ZyrTEC) 10 mg DAILY 06/22/17 12:00 06/25/17 07:45 10 MG Chlorhexidine Gluconate (Peridex) 15 ml BID 06/25/17 21:00 06/26/17 08:42 DC Dextrose (Dextrose 50%-Water Syringe) 12.5 gm PRN Q15MIN PRN 06/25/17 06:15 06/25/17 06:22 12.5 GM Enoxaparin Sodium (Lovenox 40mg Syringe) 40 mg BID 06/25/17 12:00 06/25/17 20:48 40 MG Etomidate (Amidate) 20 mg STK-MED ONCE 06/22/17 05:47 06/22/17 05:48 DC Famotidine (Pepcid) 20 mg HS 06/22/17 21:00 06/25/17 20:48 20 MG Fentanyl Citrate (Fentanyl 2ml Vial) 25 mcg PRN Q4HRS PRN 06/23/17 15:45 06/23/17 18:35 25 MCG Furosemide (Lasix) 20 mg 1X ONCE 06/24/17 11:15 06/24/17 11:16 DC 06/24/17 12:59 20 MG Insulin Detemir (Levemir) 55 units QHS 06/25/17 21:00 Isosorbide Mononitrate (Imdur) 30 mg DAILY 06/26/17 09:00 Levothyroxine Sodium (Synthroid) 88 mcg DAILYAC 06/22/17 12:00 06/25/17 07:44 88 MCG Magnesium Sulfate/ Dextrose 50 ml @ 25 mls/hr 1X ONCE 06/24/17 06:30 06/24/17 08:29 DC 06/24/17 06:32 25 MLS/HR Metoprolol Tartrate (Lopressor) 50 mg BID 06/22/17 21:00 06/25/17 20:48 50 MG Midazolam HCl (Versed) 2 mg 1X ONCE 06/22/17 07:30 06/22/17 07:31 DC 06/22/17 07:30 2 MG Norepinephrine Bitartrate 250 ml @ 0 mls/hr CONT PRN 06/22/17 08:30 06/22/17 13:02 5 MLS/HR Nystatin (Nystop) 1 ana BID 06/25/17 21:00 06/25/17 20:51 1 ANA Ondansetron HCl (Zofran) 4 mg PRN Q8HRS PRN 06/22/17 06:45 06/23/17 06:44 DC Piperacillin Sod/ Tazobactam Sod (Zosyn Per Pharmacy) 1 each PRN DAILY PRN 06/22/17 11:00 06/26/17 08:38 DC Piperacillin Sod/ Tazobactam Sod (Zosyn) 4.5 gm Q6HRS 06/22/17 12:00 06/26/17 05:49 4.5 GM Potassium Phosphate 13.6 mmol/Sodium Chloride 104.5333 ml @ 52.267 m... Q2H 06/24/17 11:00 06/24/17 16:59 DC 06/24/17 18:07 52.267 MLS/HR Prednisone (Prednisone) 20 mg DAILY 06/22/17 12:00 06/25/17 07:45 20 MG Propofol 100 ml @ 0 mls/hr CONT PRN 06/22/17 06:30 06/25/17 03:20 0 MLS/HR Rocuronium [place] (Zemuron) 50 mg STK-MED ONCE 06/22/17 05:48 06/22/17 05:49 DC Sodium Chloride 1,000 ml @ 999 mls/hr 1X ONCE 06/22/17 10:45 06/22/17 11:45 DC 06/22/17 14:32 999 MLS/HR Tacrolimus (Prograf) 1 mg BID 06/22/17 12:00 06/25/17 20:48 1 MG Vancomycin HCl 1 each 1X ONCE 06/24/17 12:30 06/24/17 12:31 DC 06/24/17 12:30 1 EACH Vancomycin HCl (Vanco Per Pharmacy) 1 each PRN DAILY PRN 06/22/17 11:00 06/25/17 08:40 1 EACH Vancomycin HCl 2 gm/Dextrose/ Sodium Chloride 500 ml @ 250 mls/hr Q48H 06/26/17 13:00 Lab Laboratory Tests Test 06/25/17 12:55 06/25/17 20:46 06/26/17 05:55 O2 Saturation 96 % (92-99) Arterial Blood pH 7.42 (7.35-7.45) Arterial Blood pCO2 at Patient Temp 42 mmHg (35-46) Arterial Blood pO2 at Patient Temp 92 mmHg (65-108) Arterial Blood HCO3 27 mmol/L (21-28) Arterial Blood Base Excess 2 mmol/L (-3-3) FiO2 40 Glucose (Fingerstick) 79 mg/dL (70-99) White Blood Count 5.8 x10^3/uL (4.0-11.0) Red Blood Count 2.68 x10^6/uL (4.30-5.70) Hemoglobin 8.5 g/dL (13.0-17.5) Hematocrit 26.4 % (39.0-53.0) Mean Corpuscular Volume 99 fL (79-100) Mean Corpuscular Hemoglobin 32 pg (25-35) Mean Corpuscular Hemoglobin Concent 32 g/dL (31-37) Red Cell Distribution Width 21.4 % (11.5-14.5) Platelet Count 147 x10^3/uL (140-400) Neutrophils (%) (Auto) 77 % (31-73) Lymphocytes (%) (Auto) 12 % (24-48) Monocytes (%) (Auto) 10 % (0-9) Eosinophils (%) (Auto) 1 % (0-3) Basophils (%) (Auto) 0 % (0-3) Neutrophils # (Auto) 4.4 x10^3uL (1.8-7.7) Lymphocytes # (Auto) 0.7 x10^3/uL (1.0-4.8) Monocytes # (Auto) 0.6 x10^3/uL (0.0-1.1) Eosinophils # (Auto) 0.0 x10^3/uL (0.0-0.7) Basophils # (Auto) 0.0 x10^3/uL (0.0-0.2) Sodium Level 149 mmol/L (136-145) Potassium Level 3.7 mmol/L (3.5-5.1) Chloride Level 109 mmol/L (98-107) Carbon Dioxide Level 31 mmol/L (21-32) Anion Gap 9 (6-14) Blood Urea Nitrogen 22 mg/dL (8-26) Creatinine 2.1 mg/dL (0.7-1.3) Estimated GFR (Cockcroft-Gault) 31.0 BUN/Creatinine Ratio 10 (6-20) Glucose Level 63 mg/dL (70-99) Calcium Level 8.4 mg/dL (8.5-10.1) Phosphorus Level 3.1 mg/dL (2.6-4.7) Magnesium Level 2.0 mg/dL (1.8-2.4) Total Bilirubin 0.7 mg/dL (0.2-1.0) Aspartate Amino Transf (AST/SGOT) 17 U/L (15-37) Alanine Aminotransferase (ALT/SGPT) 11 U/L (16-63) Alkaline Phosphatase 65 U/L (46-116) Total Protein 5.5 g/dL (6.4-8.2) Albumin 2.8 g/dL (3.4-5.0) Albumin/Globulin Ratio 1.0 (1.0-1.7) SCHUYLER GALAVIZ MD Jun 26, 2017 09:12
--- NOTE | 2017-06-26 09:12 | PDOC ---
PROGRESS NOTES Chief Complaint Chief Complaint Acute hypercarbic, hypoxic respiratory failure ASSESSMENT AND PLAN: 1. CHF exacerbation: no previous hx, poss driven by afib. echo on 06/22 with normal EF, pAP 52. CT with bilat effusions, suspected aspir PNA. on 3liters nc 2. Afib: rate controlled. cardiology following. apparently, family unaware of existing hx; per cardiology, pt has declined OAC in past 3. Aspir PNA: bilat with PO contrast in lower lungs. on broad spectrum Abx 4. Anemia: significant drop of 2+g since admit, now stable ~8.5. no obvious sign of massive bleeding. both urine and respir secretions pink. check OB stool poss chronic anemia (renal insufficiency, inflammation) with initial intravascular contraction 5. REJI on CKD3: s/p renal transplant. sl creat bump 2/2 vasomotor etiologies. essentially stable. nephrology following 6. Immunocompromise: on mult immunosuppressants post renal transplant 7. HTN: borderline control on BB. BEATA-I/ARB is ok by nephrology 8. DM2: currently tight control with home levemir dose. decrease some monitor with ISS 9. BEVERLY: on CPAP at home, not in SNF over past 2 weeks 10. Nutrition: NG 11. Prophylaxis: H2B, lovenox 12. MOD AI and pulmonary hypertension 13. severe lymphedema and dermatitis right leg 14. hypoxic respiratory failure requiring mechanical intubation 15. pulmonary edema History of Present Illness History of Present Illness awake, following commands, CONFUSED TO DETAILS Vitals Vitals Vital Signs Date Time Temp Pulse Resp B/P (MAP) Pulse Ox O2 Delivery O2 Flow Rate FiO2 06/26/17 06:00 71 24 153/57 (89) 94 Room Air 06/26/17 04:00 97.8 97.8 06/26/17 03:00 3.0 Physical Exam Physical Exam Physical Exam General: Alert, No acute distress oral mucosa dry Heart: Other (AFIB rate controlled; distant heart sounds) Lungs: Clear (ant) Abdomen: Soft, Other (obese), nontender Extremities: Other ( s/p L AKA) Skin: Other (chronic venous stasis changes) General: Alert, No acute distress Heart: Other (AFIB rate controlled; distant heart sounds) Lungs: Clear (ant) Abdomen: Soft, Other (obese) Extremities: Other ( s/p L AKA) Skin: Other (chronic venous stasis changes) Labs LABS PROCEDURE: CT CHEST WO CONTRAST CT chest without contrast Indication: Pneumonia versus congestive heart failure. Respiratory failure. Technique: CT chest without IV contrast with multiplanar reformats. Comparison: None Findings: Endotracheal tube is noted with its tip at T2 vertebral body. NG tube is noted with its tip in the distal stomach. Right-sided central venous catheter noted with its tip in the SVC. Heart is mildly enlarged in size. No pericardial effusion. Coronary artery calcifications suggesting coronary artery disease. There is diffuse atherosclerotic disease of the thoracic aorta and descending aorta with plaque burden at the origin of the arch vessels. No axillary or mediastinal adenopathy. Calcified right hilar lymph nodes noted. Moderate bilateral pleural effusions with passive atelectasis of the just lung parenchyma. Nodular high attenuating densities are seen in the bilateral lower lobes. Noncontrast appearance of the visualized liver, spleen, pancreas is within normal limits. No suspicious bony lesions. Impression: 1. Moderate bilateral pleural effusions with passive atelectasis of the adjacent lung parenchymal. Underlying pneumonia not ruled out. 2. No interlobular septal thickening in the aerated lungs to suggest pulmonary edema. 3. Nodular high attenuation in the bilateral lower lobes may represent parenchymal calcifications or aspirated oral contrast from previous studies. Portable chest, 06/26/2017: History: Respiratory failure Comparison is made to yesterday's study. The ET tube has been removed. An NG tube extends into the stomach. A right jugular central venous catheter extends to the junction of the right innominate vein and the superior vena cava. The heart is enlarged. The pulmonary vascularity is congested with loss of vascular margination. There are ongoing parahilar and basilar infiltrates similar to those seen on yesterday's exam. There is pleural fluid contributing to the basilar opacities, left greater right. The right hemidiaphragm is better defined, probably due to differences in patient positioning. No new abnormality is seen. IMPRESSION: Moderate ongoing pulmonary infiltrates most compatible with pulmonary edema, with bilateral pleural fluid, left greater than right. DICTATED and SIGNED BY: ASHLEY LARSEN MD DATE: 06/26/17 0748 Laboratory Tests Test 06/25/17 12:55 06/25/17 20:46 06/26/17 05:55 O2 Saturation 96 % (92-99) Arterial Blood pH 7.42 (7.35-7.45) Arterial Blood pCO2 at Patient Temp 42 mmHg (35-46) Arterial Blood pO2 at Patient Temp 92 mmHg (65-108) Arterial Blood HCO3 27 mmol/L (21-28) Arterial Blood Base Excess 2 mmol/L (-3-3) FiO2 40 Glucose (Fingerstick) 79 mg/dL (70-99) White Blood Count 5.8 x10^3/uL (4.0-11.0) Red Blood Count 2.68 x10^6/uL (4.30-5.70) Hemoglobin 8.5 g/dL (13.0-17.5) Hematocrit 26.4 % (39.0-53.0) Mean Corpuscular Volume 99 fL (79-100) Mean Corpuscular Hemoglobin 32 pg (25-35) Mean Corpuscular Hemoglobin Concent 32 g/dL (31-37) Red Cell Distribution Width 21.4 % (11.5-14.5) Platelet Count 147 x10^3/uL (140-400) Neutrophils (%) (Auto) 77 % (31-73) Lymphocytes (%) (Auto) 12 % (24-48) Monocytes (%) (Auto) 10 % (0-9) Eosinophils (%) (Auto) 1 % (0-3) Basophils (%) (Auto) 0 % (0-3) Neutrophils # (Auto) 4.4 x10^3uL (1.8-7.7) Lymphocytes # (Auto) 0.7 x10^3/uL (1.0-4.8) Monocytes # (Auto) 0.6 x10^3/uL (0.0-1.1) Eosinophils # (Auto) 0.0 x10^3/uL (0.0-0.7) Basophils # (Auto) 0.0 x10^3/uL (0.0-0.2) Sodium Level 149 mmol/L (136-145) Potassium Level 3.7 mmol/L (3.5-5.1) Chloride Level 109 mmol/L (98-107) Carbon Dioxide Level 31 mmol/L (21-32) Anion Gap 9 (6-14) Blood Urea Nitrogen 22 mg/dL (8-26) Creatinine 2.1 mg/dL (0.7-1.3) Estimated GFR (Cockcroft-Gault) 31.0 BUN/Creatinine Ratio 10 (6-20) Glucose Level 63 mg/dL (70-99) Calcium Level 8.4 mg/dL (8.5-10.1) Phosphorus Level 3.1 mg/dL (2.6-4.7) Magnesium Level 2.0 mg/dL (1.8-2.4) Total Bilirubin 0.7 mg/dL (0.2-1.0) Aspartate Amino Transf (AST/SGOT) 17 U/L (15-37) Alanine Aminotransferase (ALT/SGPT) 11 U/L (16-63) Alkaline Phosphatase 65 U/L (46-116) Total Protein 5.5 g/dL (6.4-8.2) Albumin 2.8 g/dL (3.4-5.0) Albumin/Globulin Ratio 1.0 (1.0-1.7) Review of Systems Review of Systems denies chest pain, abdominal pain, remains weak Assessment and Plan Assessmemt and Plan 40 min cc time Problems Medical Problems: (1) Acute encephalopathy Status: Acute (2) Pulmonary edema Status: Acute (3) Respiratory acidosis Status: Acute Dietary Evaluation: Recommendations by RD: Increase Calorie Intake, Add supplement feedings Comments: Diabetisource AC@10 ml/hr, increase 10 ml/hr to goal rate 60 ml/hr w/75 ml water flushes q4 hrs - watching renal labs Expected Outcomes/Goals: TF tolerated at goal rate and providing > 60% est needs Interpretation of weight loss: >7.5% in 3 months Malnutrition Findings: Food and Nutrition Intake (Mod: <75% est energy req 7days Malnutrition related to morbid: BMI>or equal to 40 Malnutrition related to morbid: Yes Weight Status: Morbidly Obese Problems: Comment Review of Relevant I have reviewed the following items buzz (where applicable) has been applied. Labs Laboratory Tests Test 06/24/17 09:50 06/24/17 12:40 06/24/17 16:40 06/24/17 21:35 White Blood Count 5.9 x10^3/uL (4.0-11.0) Red Blood Count 2.40 x10^6/uL (4.30-5.70) Hemoglobin 7.7 g/dL (13.0-17.5) Hematocrit 23.4 % (39.0-53.0) Mean Corpuscular Volume 98 fL (79-100) Mean Corpuscular Hemoglobin 32 pg (25-35) Mean Corpuscular Hemoglobin Concent 33 g/dL (31-37) Red Cell Distribution Width 21.4 % (11.5-14.5) Platelet Count 154 x10^3/uL (140-400) Vancomycin Level Trough 23.5 mcg/mL (10.0-20.0) Vancomycin Last Dose Date 06/23/17 Vancomycin Last Dose Time 1300 O2 Saturation 95 % (92-99) Arterial Blood pH 7.39 (7.35-7.45) Arterial Blood pCO2 at Patient Temp 47 mmHg (35-46) Arterial Blood pO2 at Patient Temp 79 mmHg (65-108) Arterial Blood HCO3 28 mmol/L (21-28) Arterial Blood Base Excess 2 mmol/L (-3-3) FiO2 40 Glucose (Fingerstick) 103 mg/dL (70-99) Test 06/25/17 00:05 06/25/17 05:56 06/25/17 06:00 06/25/17 06:08 Glucose (Fingerstick) 103 mg/dL (70-99) 50 mg/dL (70-99) 93 mg/dL (70-99) White Blood Count 6.1 x10^3/uL (4.0-11.0) Red Blood Count 2.58 x10^6/uL (4.30-5.70) Hemoglobin 8.2 g/dL (13.0-17.5) Hematocrit 25.1 % (39.0-53.0) Mean Corpuscular Volume 98 fL (79-100) Mean Corpuscular Hemoglobin 32 pg (25-35) Mean Corpuscular Hemoglobin Concent 33 g/dL (31-37) Red Cell Distribution Width 21.6 % (11.5-14.5) Platelet Count 149 x10^3/uL (140-400) Neutrophils (%) (Auto) 81 % (31-73) Lymphocytes (%) (Auto) 10 % (24-48) Monocytes (%) (Auto) 8 % (0-9) Eosinophils (%) (Auto) 1 % (0-3) Basophils (%) (Auto) 0 % (0-3) Neutrophils # (Auto) 4.9 x10^3uL (1.8-7.7) Lymphocytes # (Auto) 0.6 x10^3/uL (1.0-4.8) Monocytes # (Auto) 0.5 x10^3/uL (0.0-1.1) Eosinophils # (Auto) 0.0 x10^3/uL (0.0-0.7) Basophils # (Auto) 0.0 x10^3/uL (0.0-0.2) Sodium Level 145 mmol/L (136-145) Potassium Level 3.7 mmol/L (3.5-5.1) Chloride Level 108 mmol/L (98-107) Carbon Dioxide Level 29 mmol/L (21-32) Anion Gap 8 (6-14) Blood Urea Nitrogen 22 mg/dL (8-26) Creatinine 2.1 mg/dL (0.7-1.3) Estimated GFR (Cockcroft-Gault) 31.0 BUN/Creatinine Ratio 10 (6-20) Glucose Level 52 mg/dL (70-99) Calcium Level 8.3 mg/dL (8.5-10.1) Phosphorus Level 2.9 mg/dL (2.6-4.7) Magnesium Level 1.7 mg/dL (1.8-2.4) Total Bilirubin 0.7 mg/dL (0.2-1.0) Aspartate Amino Transf (AST/SGOT) 25 U/L (15-37) Alanine Aminotransferase (ALT/SGPT) 12 U/L (16-63) Alkaline Phosphatase 65 U/L (46-116) Total Protein 5.4 g/dL (6.4-8.2) Albumin 3.0 g/dL (3.4-5.0) Albumin/Globulin Ratio 1.3 (1.0-1.7) Test 06/25/17 07:45 06/25/17 12:55 06/25/17 20:46 06/26/17 05:55 O2 Saturation 96 % (92-99) 96 % (92-99) Arterial Blood pH 7.45 (7.35-7.45) 7.42 (7.35-7.45) Arterial Blood pCO2 at Patient Temp 37 mmHg (35-46) 42 mmHg (35-46) Arterial Blood pO2 at Patient Temp 85 mmHg (65-108) 92 mmHg (65-108) Arterial Blood HCO3 25 mmol/L (21-28) 27 mmol/L (21-28) Arterial Blood Base Excess 1 mmol/L (-3-3) 2 mmol/L (-3-3) FiO2 40 40 Glucose (Fingerstick) 79 mg/dL (70-99) White Blood Count 5.8 x10^3/uL (4.0-11.0) Red Blood Count 2.68 x10^6/uL (4.30-5.70) Hemoglobin 8.5 g/dL (13.0-17.5) Hematocrit 26.4 % (39.0-53.0) Mean Corpuscular Volume 99 fL (79-100) Mean Corpuscular Hemoglobin 32 pg (25-35) Mean Corpuscular Hemoglobin Concent 32 g/dL (31-37) Red Cell Distribution Width 21.4 % (11.5-14.5) Platelet Count 147 x10^3/uL (140-400) Neutrophils (%) (Auto) 77 % (31-73) Lymphocytes (%) (Auto) 12 % (24-48) Monocytes (%) (Auto) 10 % (0-9) Eosinophils (%) (Auto) 1 % (0-3) Basophils (%) (Auto) 0 % (0-3) Neutrophils # (Auto) 4.4 x10^3uL (1.8-7.7) Lymphocytes # (Auto) 0.7 x10^3/uL (1.0-4.8) Monocytes # (Auto) 0.6 x10^3/uL (0.0-1.1) Eosinophils # (Auto) 0.0 x10^3/uL (0.0-0.7) Basophils # (Auto) 0.0 x10^3/uL (0.0-0.2) Sodium Level 149 mmol/L (136-145) Potassium Level 3.7 mmol/L (3.5-5.1) Chloride Level 109 mmol/L (98-107) Carbon Dioxide Level 31 mmol/L (21-32) Anion Gap 9 (6-14) Blood Urea Nitrogen 22 mg/dL (8-26) Creatinine 2.1 mg/dL (0.7-1.3) Estimated GFR (Cockcroft-Gault) 31.0 BUN/Creatinine Ratio 10 (6-20) Glucose Level 63 mg/dL (70-99) Calcium Level 8.4 mg/dL (8.5-10.1) Phosphorus Level 3.1 mg/dL (2.6-4.7) Magnesium Level 2.0 mg/dL (1.8-2.4) Total Bilirubin 0.7 mg/dL (0.2-1.0) Aspartate Amino Transf (AST/SGOT) 17 U/L (15-37) Alanine Aminotransferase (ALT/SGPT) 11 U/L (16-63) Alkaline Phosphatase 65 U/L (46-116) Total Protein 5.5 g/dL (6.4-8.2) Albumin 2.8 g/dL (3.4-5.0) Albumin/Globulin Ratio 1.0 (1.0-1.7) Laboratory Tests Test 06/25/17 12:55 06/25/17 20:46 06/26/17 05:55 O2 Saturation 96 % (92-99) Arterial Blood pH 7.42 (7.35-7.45) Arterial Blood pCO2 at Patient Temp 42 mmHg (35-46) Arterial Blood pO2 at Patient Temp 92 mmHg (65-108) Arterial Blood HCO3 27 mmol/L (21-28) Arterial Blood Base Excess 2 mmol/L (-3-3) FiO2 40 Glucose (Fingerstick) 79 mg/dL (70-99) White Blood Count 5.8 x10^3/uL (4.0-11.0) Red Blood Count 2.68 x10^6/uL (4.30-5.70) Hemoglobin 8.5 g/dL (13.0-17.5) Hematocrit 26.4 % (39.0-53.0) Mean Corpuscular Volume 99 fL (79-100) Mean Corpuscular Hemoglobin 32 pg (25-35) Mean Corpuscular Hemoglobin Concent 32 g/dL (31-37) Red Cell Distribution Width 21.4 % (11.5-14.5) Platelet Count 147 x10^3/uL (140-400) Neutrophils (%) (Auto) 77 % (31-73) Lymphocytes (%) (Auto) 12 % (24-48) Monocytes (%) (Auto) 10 % (0-9) Eosinophils (%) (Auto) 1 % (0-3) Basophils (%) (Auto) 0 % (0-3) Neutrophils # (Auto) 4.4 x10^3uL (1.8-7.7) Lymphocytes # (Auto) 0.7 x10^3/uL (1.0-4.8) Monocytes # (Auto) 0.6 x10^3/uL (0.0-1.1) Eosinophils # (Auto) 0.0 x10^3/uL (0.0-0.7) Basophils # (Auto) 0.0 x10^3/uL (0.0-0.2) Sodium Level 149 mmol/L (136-145) Potassium Level 3.7 mmol/L (3.5-5.1) Chloride Level 109 mmol/L (98-107) Carbon Dioxide Level 31 mmol/L (21-32) Anion Gap 9 (6-14) Blood Urea Nitrogen 22 mg/dL (8-26) Creatinine 2.1 mg/dL (0.7-1.3) Estimated GFR (Cockcroft-Gault) 31.0 BUN/Creatinine Ratio 10 (6-20) Glucose Level 63 mg/dL (70-99) Calcium Level 8.4 mg/dL (8.5-10.1) Phosphorus Level 3.1 mg/dL (2.6-4.7) Magnesium Level 2.0 mg/dL (1.8-2.4) Total Bilirubin 0.7 mg/dL (0.2-1.0) Aspartate Amino Transf (AST/SGOT) 17 U/L (15-37) Alanine Aminotransferase (ALT/SGPT) 11 U/L (16-63) Alkaline Phosphatase 65 U/L (46-116) Total Protein 5.5 g/dL (6.4-8.2) Albumin 2.8 g/dL (3.4-5.0) Albumin/Globulin Ratio 1.0 (1.0-1.7) Medications Current Medications Etomidate (Amidate) 20 mg STK-MED ONCE IV ; Start 06/22/17 at 05:47; Stop at 05:48; Status DC Rocuronium [place] (Zemuron) 50 mg STK-MED ONCE .ROUTE ; Start 06/22/17 at 05:48 ; Stop 06/22/17 at 05:49; Status DC Propofol 50 ml @ As Directed STK-MED ONCE IV ; Start 06/22/17 at 06:15; Stop at 06:16; Status DC Propofol 100 ml @ 0 mls/hr CONT PRN IV SEE I/O RECORD Last administered on 06/25 03:20; Start 06/22/17 at 06:30 Ondansetron HCl (Zofran) 4 mg PRN Q8HRS PRN IV NAUSEA/VOMITING; Start 06/22/17 at 06:45; Stop 06/23/17 at 06:44; Status DC Fentanyl Citrate (Fentanyl 2ml Vial) 50 mcg PRN Q1HR PRN IV PAIN Last administered on 06/22/17 07:04; Start 06/22/17 at 06:45; Stop 06/23/17 at 06:44 ; Status DC Sodium Chloride 1,000 ml @ 75 mls/hr [id number] IV ; Start 06/22/17 at 06:45; Stop 06/22/17 at 19:47; Status DC Acetaminophen (Tylenol) 650 mg PRN Q4HRS PRN PO FEVER; Start 06/22/17 at 06:45 ; Stop 06/23/17 at 06:44; Status DC Midazolam HCl (Versed) 2 mg STK-MED ONCE .ROUTE ; Start 06/22/17 at 07:17; Stop 06/22/17 at 07:18; Status DC Midazolam HCl 100 ml @ 0 mls/hr CONT PRN IV SEE I/O RECORD Last administered on 06/22/17 23:38; Start 06/22/17 at 07:30 Midazolam HCl (Versed) 2 mg 1X ONCE IV Last administered on 06/22/17 07:30; Start 06/22/17 at 07:30; Stop 06/22/17 at 07:31; Status DC Norepinephrine Bitartrate 250 ml @ As Directed STK-MED ONCE IV ; Start at 08:27; Stop 06/22/17 at 08:28; Status DC Norepinephrine Bitartrate 250 ml @ 0 mls/hr CONT PRN IV SEE I/O RECORD Last administered on 06/22/17 13:02; Start 06/22/17 at 08:30 Sodium Chloride 1,000 ml @ 125 mls/hr Q8H IV Last administered on 06/23/17 08 :21; Start 06/22/17 at 11:00; Stop 06/23/17 at 14:28; Status DC Sodium Chloride 1,000 ml @ 999 mls/hr 1X ONCE IV Last administered on 14:32; Start 06/22/17 at 10:45; Stop 06/22/17 at 11:45; Status DC Vancomycin HCl (Vanco Per Pharmacy) 1 each PRN DAILY PRN MC SEE COMMENTS Last administered on 06/25/17 08:40; Start 06/22/17 at 11:00 Piperacillin Sod/ Tazobactam Sod (Zosyn Per Pharmacy) 1 each PRN DAILY PRN MC SEE COMMENTS; Start 06/22/17 at 11:00; Stop 06/26/17 at 08:38; Status DC Aspirin (Children'S Aspirin) 81 mg DAILY PO Last administered on 06/25/17 07: 46; Start 06/22/17 at 12:00 Atorvastatin Calcium (Lipitor) 10 mg DAILY PO Last administered on 06/25/17 07 :45; Start 06/22/17 at 12:00 Azathioprine (Imuran) 50 mg DAILY PO Last administered on 06/25/17 07:45; Start 06/22/17 at 12:00 Famotidine (Pepcid) 20 mg HS PO Last administered on 06/25/17 20:48; Start at 21:00 Levothyroxine Sodium (Synthroid) 88 mcg DAILYAC PO Last administered on 07:44; Start 06/22/17 at 12:00 Prednisone (Prednisone) 20 mg DAILY PO Last administered on 06/25/17 07:45; Start 06/22/17 at 12:00 Insulin Detemir (Levemir) 70 units QHS SQ ; Start 06/22/17 at 21:00; Stop at 21:10; Status DC Cetirizine HCl (ZyrTEC) 10 mg DAILY PO Last administered on 06/25/17 07:45; Start 06/22/17 at 12:00 Metoprolol Tartrate (Lopressor) 100 mg BID PO ; Start 06/22/17 at 12:00; Stop 06/22/17 at 18:33; Status DC Tacrolimus (Prograf) 1 mg BID PO Last administered on 06/25/17 20:48; Start 06/22/17 at 12:00 Vancomycin HCl 2 gm/Dextrose/ Sodium Chloride 500 ml @ 250 mls/hr 1X ONCE IV Last administered on 06/22/17 13:04; Start 06/22/17 at 11:30; Stop 06/22/17 at 13:29; Status DC Piperacillin Sod/ Tazobactam Sod (Zosyn) 4.5 gm Q6HRS IVP Last administered on 06/26/17 05:49; Start 06/22/17 at 12:00 Vancomycin HCl 2 gm/Dextrose/ Sodium Chloride 500 ml @ 250 mls/hr Q24H IV ; Start 06/23/17 at 13:00; Stop 06/23/17 at 13:00; Status DC Vancomycin HCl 1 each 1X ONCE MC Last administered on 06/24/17 12:30; Start 06/24/17 at 12:30; Stop 06/24/17 at 12:31; Status DC Metoprolol Tartrate (Lopressor) 50 mg BID PO Last administered on 06/25/17 20: 48; Start 06/22/17 at 21:00 Albumin Human 200 ml @ 100 mls/hr TID IV Last administered on 06/22/17 20:44 ; Start 06/22/17 at 21:00; Stop 06/23/17 at 02:42; Status DC Insulin Detemir (Levemir) 70 units QHS SQ Last administered on 06/24/17 21:53 ; Start 06/23/17 at 21:00; Stop 06/25/17 at 10:40; Status DC Insulin Detemir (Levemir) 30 units 1X ONCE SQ Last administered on 06/22/17 21:18; Start 06/22/17 at 21:15; Stop 06/22/17 at 21:16; Status DC Albumin Human 200 ml @ 100 mls/hr TID IV ; Start 06/23/17 at 03:00; Stop at 03:00; Status DC Albumin Human 200 ml @ 100 mls/hr Q6HRS IV Last administered on 06/24/17 05: 47; Start 06/23/17 at 06:00; Stop 06/24/17 at 07:59; Status DC Vancomycin HCl 2 gm/Dextrose/ Sodium Chloride 500 ml @ 250 mls/hr Q24H IV Last administered on 06/24/17 14:43; Start 06/23/17 at 13:00; Stop 06/25/17 at 08:36; Status DC Magnesium Sulfate/ Dextrose 50 ml @ 25 mls/hr PRN DAILY PRN IV for Mag < 1.7 on am labs Last administered on 06/25/17 10:43; Start 06/23/17 at 14:30 Fentanyl Citrate (Fentanyl 2ml Vial) 25 mcg PRN Q4HRS PRN IV PAIN Last administered on 06/23/17 18:35; Start 06/23/17 at 15:45 Magnesium Sulfate/ Dextrose 50 ml @ 25 mls/hr 1X ONCE IV Last administered on 06/24/17 06:32; Start 06/24/17 at 06:30; Stop 06/24/17 at 08:29; Status DC Potassium Phosphate 13.6 mmol/Sodium Chloride 104.5333 ml @ 52.267 m... Q2H IV Last administered on 06/24/17 18:07; Start 06/24/17 at 11:00; Stop 06/24/17 at 16:59; Status DC Furosemide (Lasix) 20 mg 1X ONCE IVP Last administered on 06/24/17 12:59; Start 06/24/17 at 11:15; Stop 06/24/17 at 11:16; Status DC Dextrose (Dextrose 50%-Water Syringe) 25 gm STK-MED ONCE IV ; Start 06/25/17 at 05:58; Stop 06/25/17 at 05:59; Status DC Dextrose (Dextrose 50%-Water Syringe) 12.5 gm PRN Q15MIN PRN IV SEE COMMENTS Last administered on 06/25/17 06:22; Start 06/25/17 at 06:15 Chlorhexidine Gluconate (Peridex) 15 ml BID SWSP ; Start 06/25/17 at 21:00; Stop 06/26/17 at 08:42; Status DC Vancomycin HCl 2 gm/Dextrose/ Sodium Chloride 500 ml @ 250 mls/hr Q48H IV ; Start 06/26/17 at 13:00 Insulin Detemir (Levemir) 55 units QHS SQ ; Start 06/25/17 at 21:00 Enoxaparin Sodium (Lovenox 40mg Syringe) 40 mg BID SQ Last administered on 06/25 20:48; Start 06/25/17 at 12:00 Nystatin (Nystop) 1 alexis BID TP Last administered on 06/25/17 20:51; Start 06/25/17 at 21:00 Isosorbide Mononitrate (Imdur) 30 mg DAILY PO ; Start 06/26/17 at 09:00 Active Scripts Active Keflex (Cephalexin) 500 Mg Capsule 500 Mg PO QID 5 Days Reported Amlodipine Besylate 5 Mg Tablet 10 Mg PO DAILY Azathioprine 50 Mg Tablet 4 Tab PO DAILY Docusate Sodium 100 Mg Capsule 1 Cap PO TID PRN PRN Ferrous Sulfate 325 Mg Tablet 1 Tab PO BIDAC Ondansetron Hcl 4 Mg Tablet 1 Tab PO PRN Q8HRS PRN Prednisone 10 Mg Tablet 5 Mg PO DAILY Thiamine Hcl 100 Mg Tablet 100 Mg PO Nystatin-Triamcinolone Cream (Nystatin/Triamcin) 15 Gm Cream..g. 1 Alexis TP BID Pantoprazole Sodium 40 Mg Tablet.dr 1 Tab PO DAILY Tacrolimus 0.5 Mg Capsule 0.5 Mg PO DAILY Tylenol (Acetaminophen) 325 Mg Tablet 1 Tab PO PRN Q6HRS PRN Haloperidol 0.5 Mg Tablet 0.25 Mg PO PRN Q8HRS PRN Metoprolol Tartrate 50 Mg Tablet 3 Tab PO BID Novolog Flexpen (Insulin Aspart) 100 Unit/1 Ml Insuln.pen 22 Unit SQ AC SUPPER Novolog Flexpen (Insulin Aspart) 100 Unit/1 Ml Insuln.pen 18 Unit SQ AC LUNCH Novolog Flexpen (Insulin Aspart) 100 Unit/1 Ml Insuln.pen 10 Unit SQ AC BREAKFAST Levothyroxine Sodium 88 Mcg Tablet 1 Tab PO DAILY Atorvastatin Calcium 10 Mg Tablet 1 Tab PO DAILY Loratadine 10 Mg Tablet 1 Tab PO DAILY Hydrochlorothiazide Tablet (Hydrochlorothiazide) 25 Mg Tablet 25 Mg PO DAILY Pepcid Ac (Famotidine) 20 Mg Tablet 20 Mg PO HS Tacrolimus 1 Mg Capsule 1 Mg PO BID Men's Multivitamin Gummies (Folic Acid/Multivit-Minerals) 200 Mcg Tab.chew 200 Mcg PO Aspirin 81 Mg Tab.chew 1 Tab PO DAILY Lantus (Insulin Glargine,Hum.rec.anlog) 100 Unit/1 Ml Vial 70 Unit SQ QHS Alendronate Sodium 70 Mg Tablet 70 Mg PO WEEKLY Vitals/I & O Vital Sign - Last 24 Hours 06/25/17 06/25/17 06/25/17 06/25/17 09:50 10:00 11:00 11:30 Pulse 69 78 Resp 16 16 B/P (MAP) 148/59 (88) 142/64 (90) Pulse Ox 100 100 100 O2 Delivery Ventilator Ventilator Ventilator 06/25/17 06/25/17 06/25/17 06/25/17 12:00 12:00 13:00 14:00 Temp 98.5 98.5 Pulse 73 70 77 Resp 18 16 17 B/P (MAP) 157/74 (101) 155/57 (89) 150/74 (99) Pulse Ox 100 100 100 O2 Delivery Ventilator Mechanical Ventilator Ventilator Ventilator 06/25/17 06/25/17 06/25/17 06/25/17 14:25 15:00 16:00 16:00 Temp 98.3 98.3 Pulse 82 78 Resp 20 20 B/P (MAP) 148/74 (98) 152/70 (97) Pulse Ox 100 100 O2 Delivery Venturi Mask Simple Mask Mask Simple Mask O2 Flow Rate 12.0 12.0 12.0 06/25/17 06/25/17 06/25/17 06/25/17 17:00 18:00 19:00 20:00 Temp 98.3 98.3 Pulse 78 79 82 Resp 18 22 28 B/P (MAP) 165/74 (104) 151/77 (101) Pulse Ox 100 98 100 O2 Delivery Nasal Cannula Nasal Cannula Nasal Cannula O2 Flow Rate 12.0 2.0 4.0 4.0 06/25/17 06/25/17 06/25/17 06/25/17 20:00 20:48 21:00 22:00 Temp 97.5 97.5 Pulse 83 76 79 68 Resp 18 24 16 B/P (MAP) 163/66 (98) 163/66 161/67 (98) 150/62 (91) Pulse Ox 100 100 100 O2 Delivery Nasal Cannula Nasal Cannula Nasal Cannula O2 Flow Rate 4.0 4.0 4.0 06/25/17 06/26/17 06/26/17 06/26/17 23:00 00:00 00:00 01:00 Temp 97.8 97.8 Pulse 74 74 72 Resp 15 15 14 B/P (MAP) 146/70 (95) 143/63 (89) 146/56 (86) Pulse Ox 100 100 100 O2 Delivery Nasal Cannula Nasal Cannula Nasal Cannula Nasal Cannula O2 Flow Rate 4.0 4.0 4.0 4.0 06/26/17 06/26/17 06/26/17 06/26/17 02:00 03:00 04:00 04:00 Temp 97.8 97.8 Pulse 76 74 68 Resp 25 23 24 B/P (MAP) 145/49 (81) 144/60 (88) 143/65 (91) Pulse Ox 100 100 95 O2 Delivery Nasal Cannula Nasal Cannula Room Air Room Air O2 Flow Rate 3.0 3.0 06/26/17 06/26/17 05:03 06:00 Pulse 78 71 Resp 18 24 B/P (MAP) 140/59 (86) 153/57 (89) Pulse Ox 95 94 O2 Delivery Room Air Room Air Intake and Output 06/25/17 06/25/17 06/26/17 15:00 23:00 07:00 Intake Total 705 ml 0 ml 92 ml Output Total 661 ml 917 ml 500 ml Balance 44 ml -917 ml -408 ml Nutrition Consultation Dietary Evaluation: Recommendations by RD: Increase Calorie Intake, Add supplement feedings Comments: Diabetisource AC@10 ml/hr, increase 10 ml/hr to goal rate 60 ml/hr w/75 ml water flushes q4 hrs - watching renal labs Expected Outcomes/Goals: TF tolerated at goal rate and providing > 60% est needs Interpretation of weight loss: >7.5% in 3 months Malnutrition Findings: Food and Nutrition Intake (Mod: <75% est energy req 7days Malnutrition related to morbid: BMI>or equal to 40 Malnutrition related to morbid: Yes Weight Status: Morbidly Obese ÁLVARO BELTRAN MD Jun 26, 2017 09:12
[2017-06-26] MEDS ORDERED: AMINO AC 3%/ELECTROLYTE/GLYCER 1,000 ML IV SCH (09:15)
--- NOTE | 2017-06-26 09:48 | PDOC ---
PULMONARY PROGRESS NOTES Subjective EXTUBATED 06/25 NO RESP DISTRESS Vitals Vital Signs Date Time Temp Pulse Resp B/P (MAP) Pulse Ox O2 Delivery O2 Flow Rate FiO2 06/26/17 06:00 71 24 153/57 (89) 94 Room Air 06/26/17 04:00 97.8 97.8 06/26/17 03:00 3.0 ROS: No Nausea, No Chest Pain, No Abdominal Pain, No Increase Cough General: Alert Lungs: Crackles Cardiovascular: S1 Abdomen: Soft, Other (obese) Neuro Exam: Alert Extremities: Other (right lymphedema, left BKA) Skin: Warm Labs Laboratory Tests Test 06/24/17 09:50 06/24/17 12:40 06/24/17 16:40 06/24/17 21:35 White Blood Count 5.9 x10^3/uL (4.0-11.0) Red Blood Count 2.40 x10^6/uL (4.30-5.70) Hemoglobin 7.7 g/dL (13.0-17.5) Hematocrit 23.4 % (39.0-53.0) Mean Corpuscular Volume 98 fL (79-100) Mean Corpuscular Hemoglobin 32 pg (25-35) Mean Corpuscular Hemoglobin Concent 33 g/dL (31-37) Red Cell Distribution Width 21.4 % (11.5-14.5) Platelet Count 154 x10^3/uL (140-400) Vancomycin Level Trough 23.5 mcg/mL (10.0-20.0) Vancomycin Last Dose Date 06/23/17 Vancomycin Last Dose Time 1300 O2 Saturation 95 % (92-99) Arterial Blood pH 7.39 (7.35-7.45) Arterial Blood pCO2 at Patient Temp 47 mmHg (35-46) Arterial Blood pO2 at Patient Temp 79 mmHg (65-108) Arterial Blood HCO3 28 mmol/L (21-28) Arterial Blood Base Excess 2 mmol/L (-3-3) FiO2 40 Glucose (Fingerstick) 103 mg/dL (70-99) Test 06/25/17 00:05 06/25/17 05:56 06/25/17 06:00 06/25/17 06:08 Glucose (Fingerstick) 103 mg/dL (70-99) 50 mg/dL (70-99) 93 mg/dL (70-99) White Blood Count 6.1 x10^3/uL (4.0-11.0) Red Blood Count 2.58 x10^6/uL (4.30-5.70) Hemoglobin 8.2 g/dL (13.0-17.5) Hematocrit 25.1 % (39.0-53.0) Mean Corpuscular Volume 98 fL (79-100) Mean Corpuscular Hemoglobin 32 pg (25-35) Mean Corpuscular Hemoglobin Concent 33 g/dL (31-37) Red Cell Distribution Width 21.6 % (11.5-14.5) Platelet Count 149 x10^3/uL (140-400) Neutrophils (%) (Auto) 81 % (31-73) Lymphocytes (%) (Auto) 10 % (24-48) Monocytes (%) (Auto) 8 % (0-9) Eosinophils (%) (Auto) 1 % (0-3) Basophils (%) (Auto) 0 % (0-3) Neutrophils # (Auto) 4.9 x10^3uL (1.8-7.7) Lymphocytes # (Auto) 0.6 x10^3/uL (1.0-4.8) Monocytes # (Auto) 0.5 x10^3/uL (0.0-1.1) Eosinophils # (Auto) 0.0 x10^3/uL (0.0-0.7) Basophils # (Auto) 0.0 x10^3/uL (0.0-0.2) Sodium Level 145 mmol/L (136-145) Potassium Level 3.7 mmol/L (3.5-5.1) Chloride Level 108 mmol/L (98-107) Carbon Dioxide Level 29 mmol/L (21-32) Anion Gap 8 (6-14) Blood Urea Nitrogen 22 mg/dL (8-26) Creatinine 2.1 mg/dL (0.7-1.3) Estimated GFR (Cockcroft-Gault) 31.0 BUN/Creatinine Ratio 10 (6-20) Glucose Level 52 mg/dL (70-99) Calcium Level 8.3 mg/dL (8.5-10.1) Phosphorus Level 2.9 mg/dL (2.6-4.7) Magnesium Level 1.7 mg/dL (1.8-2.4) Total Bilirubin 0.7 mg/dL (0.2-1.0) Aspartate Amino Transf (AST/SGOT) 25 U/L (15-37) Alanine Aminotransferase (ALT/SGPT) 12 U/L (16-63) Alkaline Phosphatase 65 U/L (46-116) Total Protein 5.4 g/dL (6.4-8.2) Albumin 3.0 g/dL (3.4-5.0) Albumin/Globulin Ratio 1.3 (1.0-1.7) Test 06/25/17 07:45 06/25/17 12:55 06/25/17 20:46 06/26/17 05:55 O2 Saturation 96 % (92-99) 96 % (92-99) Arterial Blood pH 7.45 (7.35-7.45) 7.42 (7.35-7.45) Arterial Blood pCO2 at Patient Temp 37 mmHg (35-46) 42 mmHg (35-46) Arterial Blood pO2 at Patient Temp 85 mmHg (65-108) 92 mmHg (65-108) Arterial Blood HCO3 25 mmol/L (21-28) 27 mmol/L (21-28) Arterial Blood Base Excess 1 mmol/L (-3-3) 2 mmol/L (-3-3) FiO2 40 40 Glucose (Fingerstick) 79 mg/dL (70-99) White Blood Count 5.8 x10^3/uL (4.0-11.0) Red Blood Count 2.68 x10^6/uL (4.30-5.70) Hemoglobin 8.5 g/dL (13.0-17.5) Hematocrit 26.4 % (39.0-53.0) Mean Corpuscular Volume 99 fL (79-100) Mean Corpuscular Hemoglobin 32 pg (25-35) Mean Corpuscular Hemoglobin Concent 32 g/dL (31-37) Red Cell Distribution Width 21.4 % (11.5-14.5) Platelet Count 147 x10^3/uL (140-400) Neutrophils (%) (Auto) 77 % (31-73) Lymphocytes (%) (Auto) 12 % (24-48) Monocytes (%) (Auto) 10 % (0-9) Eosinophils (%) (Auto) 1 % (0-3) Basophils (%) (Auto) 0 % (0-3) Neutrophils # (Auto) 4.4 x10^3uL (1.8-7.7) Lymphocytes # (Auto) 0.7 x10^3/uL (1.0-4.8) Monocytes # (Auto) 0.6 x10^3/uL (0.0-1.1) Eosinophils # (Auto) 0.0 x10^3/uL (0.0-0.7) Basophils # (Auto) 0.0 x10^3/uL (0.0-0.2) Sodium Level 149 mmol/L (136-145) Potassium Level 3.7 mmol/L (3.5-5.1) Chloride Level 109 mmol/L (98-107) Carbon Dioxide Level 31 mmol/L (21-32) Anion Gap 9 (6-14) Blood Urea Nitrogen 22 mg/dL (8-26) Creatinine 2.1 mg/dL (0.7-1.3) Estimated GFR (Cockcroft-Gault) 31.0 BUN/Creatinine Ratio 10 (6-20) Glucose Level 63 mg/dL (70-99) Calcium Level 8.4 mg/dL (8.5-10.1) Phosphorus Level 3.1 mg/dL (2.6-4.7) Magnesium Level 2.0 mg/dL (1.8-2.4) Total Bilirubin 0.7 mg/dL (0.2-1.0) Aspartate Amino Transf (AST/SGOT) 17 U/L (15-37) Alanine Aminotransferase (ALT/SGPT) 11 U/L (16-63) Alkaline Phosphatase 65 U/L (46-116) Total Protein 5.5 g/dL (6.4-8.2) Albumin 2.8 g/dL (3.4-5.0) Albumin/Globulin Ratio 1.0 (1.0-1.7) Laboratory Tests Test 06/25/17 12:55 06/25/17 20:46 06/26/17 05:55 O2 Saturation 96 % (92-99) Arterial Blood pH 7.42 (7.35-7.45) Arterial Blood pCO2 at Patient Temp 42 mmHg (35-46) Arterial Blood pO2 at Patient Temp 92 mmHg (65-108) Arterial Blood HCO3 27 mmol/L (21-28) Arterial Blood Base Excess 2 mmol/L (-3-3) FiO2 40 Glucose (Fingerstick) 79 mg/dL (70-99) White Blood Count 5.8 x10^3/uL (4.0-11.0) Red Blood Count 2.68 x10^6/uL (4.30-5.70) Hemoglobin 8.5 g/dL (13.0-17.5) Hematocrit 26.4 % (39.0-53.0) Mean Corpuscular Volume 99 fL (79-100) Mean Corpuscular Hemoglobin 32 pg (25-35) Mean Corpuscular Hemoglobin Concent 32 g/dL (31-37) Red Cell Distribution Width 21.4 % (11.5-14.5) Platelet Count 147 x10^3/uL (140-400) Neutrophils (%) (Auto) 77 % (31-73) Lymphocytes (%) (Auto) 12 % (24-48) Monocytes (%) (Auto) 10 % (0-9) Eosinophils (%) (Auto) 1 % (0-3) Basophils (%) (Auto) 0 % (0-3) Neutrophils # (Auto) 4.4 x10^3uL (1.8-7.7) Lymphocytes # (Auto) 0.7 x10^3/uL (1.0-4.8) Monocytes # (Auto) 0.6 x10^3/uL (0.0-1.1) Eosinophils # (Auto) 0.0 x10^3/uL (0.0-0.7) Basophils # (Auto) 0.0 x10^3/uL (0.0-0.2) Sodium Level 149 mmol/L (136-145) Potassium Level 3.7 mmol/L (3.5-5.1) Chloride Level 109 mmol/L (98-107) Carbon Dioxide Level 31 mmol/L (21-32) Anion Gap 9 (6-14) Blood Urea Nitrogen 22 mg/dL (8-26) Creatinine 2.1 mg/dL (0.7-1.3) Estimated GFR (Cockcroft-Gault) 31.0 BUN/Creatinine Ratio 10 (6-20) Glucose Level 63 mg/dL (70-99) Calcium Level 8.4 mg/dL (8.5-10.1) Phosphorus Level 3.1 mg/dL (2.6-4.7) Magnesium Level 2.0 mg/dL (1.8-2.4) Total Bilirubin 0.7 mg/dL (0.2-1.0) Aspartate Amino Transf (AST/SGOT) 17 U/L (15-37) Alanine Aminotransferase (ALT/SGPT) 11 U/L (16-63) Alkaline Phosphatase 65 U/L (46-116) Total Protein 5.5 g/dL (6.4-8.2) Albumin 2.8 g/dL (3.4-5.0) Albumin/Globulin Ratio 1.0 (1.0-1.7) Medications Active Scripts Medications Dose Route/Sig Max Daily Dose Days Date Category Amlodipine Besylate 5 Mg Tablet 10 Mg PO DAILY 06/22/17 Reported Azathioprine 50 Mg Tablet 4 Tab PO DAILY 06/22/17 Reported Docusate Sodium 100 Mg Capsule 1 Cap PO TID PRN PRN 06/22/17 Reported Ferrous Sulfate 325 Mg Tablet 1 Tab PO BIDAC 06/22/17 Reported Ondansetron Hcl 4 Mg Tablet 1 Tab PO PRN Q8HRS PRN 06/22/17 Reported Prednisone 10 Mg Tablet 5 Mg PO DAILY 06/22/17 Reported Thiamine Hcl 100 Mg Tablet 100 Mg PO 06/22/17 Reported Nystatin-Triamcinolone Cream (Nystatin/Triamcin) 15 Gm Cream..g. 1 Alexis TP BID 06/22/17 Reported Pantoprazole Sodium 40 Mg Tablet.dr 1 Tab PO DAILY 06/22/17 Reported Tacrolimus 0.5 Mg Capsule 0.5 Mg PO DAILY 06/22/17 Reported Tylenol (Acetaminophen) 325 Mg Tablet 1 Tab PO PRN Q6HRS PRN 06/22/17 Reported Haloperidol 0.5 Mg Tablet 0.25 Mg PO PRN Q8HRS PRN 06/22/17 Reported Metoprolol Tartrate 50 Mg Tablet 3 Tab PO BID 06/22/17 Reported Keflex (Cephalexin) 500 Mg Capsule 500 Mg PO QID 5 06/30/15 Rx Novolog Flexpen (Insulin Aspart) 100 Unit/1 Ml Insuln.pen 22 Unit SQ AC SUPPER 06/26/15 Reported Novolog Flexpen (Insulin Aspart) 100 Unit/1 Ml Insuln.pen 18 Unit SQ AC LUNCH 06/26/15 Reported Novolog Flexpen (Insulin Aspart) 100 Unit/1 Ml Insuln.pen 10 Unit SQ AC BREAKFAST 06/26/15 Reported Levothyroxine Sodium 88 Mcg Tablet 1 Tab PO DAILY 06/24/15 Reported Atorvastatin Calcium 10 Mg Tablet 1 Tab PO DAILY 06/24/15 Reported Loratadine 10 Mg Tablet 1 Tab PO DAILY 06/24/15 Reported Hydrochlorothiazide Tablet (Hydrochlorothiazide) 25 Mg Tablet 25 Mg PO DAILY 06/24/15 Reported Pepcid Ac (Famotidine) 20 Mg Tablet 20 Mg PO HS 06/24/15 Reported Tacrolimus 1 Mg Capsule 1 Mg PO BID 06/24/15 Reported Men's Multivitamin Gummies (Folic Acid/Multivit-Minerals) 200 Mcg Tab.chew 200 Mcg PO 06/24/15 Reported Aspirin 81 Mg Tab.chew 1 Tab PO DAILY 06/24/15 Reported Lantus (Insulin Glargine,Hum.rec.anlog) 100 Unit/1 Ml Vial 70 Unit SQ QHS 06/24/15 Reported Alendronate Sodium 70 Mg Tablet 70 Mg PO WEEKLY 06/24/15 Reported Impression . 1. Acute hypercapnic respiratory failure secondary to multifactorial in nature 2. Abnormal ct chest with moderate effusions/ some aspirated gastro graffin 3. Renal transplant and acute kidney injury. 4. Methicillin-resistant Staphylococcus aureus infection. 5. Hypernatremia 6. Severe protein-calorie malnutrition POA 7. Morbid obesity 8. Suspect BEVERLY/OHS 9. Acute/Chronic Cor Pulmonale 10. Chronic Lower Ext Lymphedema CT Impression: 1. Moderate bilateral pleural effusions with passive atelectasis of the adjacent lung parenchymal. Underlying pneumonia not ruled out. 2. No interlobular septal thickening in the aerated lungs to suggest pulmonary edema. 3. Nodular high attenuation in the bilateral lower lobes may represent parenchymal calcifications or aspirated oral contrast from previous studies. Plan . EXTUBATE DOING WELL, DYSPHAGIA WORK UP SPOKE WITH SPEECH AND RN WILL START TUBE FEEDING NEEDS REHAB OR LTAC 1. REPEAT CXR IN 3-5 DAYS 2. echocardiogram with moderate AI and secondary pulmonary HTN/ Normal EF 3. off Levophed 4. Nutritional support 5. will need sleep study 6. antibiotics 7. Stress ulcer prophylaxis and DVT prophylaxis. CCT 35 MINUTES SHARATH VALLE MD Jun 26, 2017 09:48
[2017-06-26] MEDS: METOPROLOL TART IMMED RELEASE 50 MG TABLET. PO SCH ×2 (11:04→20:44)
[2017-06-26] MEDS: ASPIRIN CHEWABLE 81 MG TABLET. PO SCH (11:04)
[2017-06-26] MEDS: ATORVASTATIN CALCIUM 10 MG TABLET. PO SCH (11:04)
[2017-06-26] MEDS: predniSONE 20 MG TABLET PO SCH (11:04)
[2017-06-26] MEDS: azaTHIOprine 50 MG TABLET PO SCH (11:04)
[2017-06-26] MEDS: LEVOTHYROXINE 88 MCG TABLET PO SCH (11:04)
[2017-06-26] MEDS: ENOXAPARIN 40 MG/0.4 ML SYRINGE. SQ SCH ×2 (11:05→20:43)
[2017-06-26] MEDS: NYSTATIN TOPICAL POWDER 15GM BOTTLE. TP SCH ×2 (11:05→20:41)
[2017-06-26] MEDS: TACROLIMUS 1 MG CAPSULE PO SCH ×2 (11:05→20:44)
[2017-06-26] MEDS: CETIRIZINE HCL 10 MG TABLET. PO SCH (11:05)
[2017-06-26] MEDS ORDERED: VANCOMYCIN 2 GM in IV DEXTROSE 5 %-0.45 % NACL 500 ML IV SCH (13:00)
[2017-06-26 13:07] LABS: CALCIUM 8.8 mg/dL (8.5-10.1); GFR 32.8; POTASSIUM 3.7 mmol/L (3.5-5.1)
[2017-06-26] MEDS: VANCOMYCIN PER PHARMACY MC PRN (15:34)
[2017-06-26] MEDS: INSULIN DETEMIR 300 UNITS/3 ML INSULN.PEN. SQ SCH (20:43)
[2017-06-26] MEDS: FAMOTIDINE 20 MG TABLET. PO SCH (20:44)
[2017-06-26] MEDS ORDERED: IV NORMAL SALINE 500ML BAG 500 ML IV ONE (23:45)
[2017-06-27] VITALS (24 sets, daily range): BP systolic 148–194; BP diastolic 66–81
[2017-06-27] MEDS: PIPERACILLIN/TAZO IV Push 4.5 GM VIAL. IVP SCH ×2 (00:35→05:51)
[2017-06-27] MEDS ORDERED: IV NORMAL SALINE 250ML 250 ML IV ONE (03:15)
[2017-06-27 06:20] LABS: BASO # 0.1 x10^3/uL (0.0-0.2); BASO % 1 % (0-3); EOS % 1 % (0-3); HEMATOCRIT 28.7 % (39.0-53.0); HEMOGLOBIN 9.2 g/dL (13.0-17.5); LYMPH # 0.9 x10^3/uL (1.0-4.8); LYMPH % 11 % (24-48); MEAN CORPUSCULAR HEMOGLOBIN 32 pg (25-35); MEAN CORPUSCULAR HGB CONC 32 g/dL (31-37); MEAN CORPUSCULAR VOLUME 99 fL (79-100); MONO % 10 % (0-9); NEUT % 78 % (31-73); PLATELET COUNT 172 x10^3/uL (140-400); WHITE BLOOD COUNT 8.2 x10^3/uL (4.0-11.0)
[2017-06-27 06:42] LABS: ALBUMIN 2.5 g/dL (3.4-5.0); ALBUMIN/GLOBULIN RATIO 0.8 (1.0-1.7); CALCIUM 8.4 mg/dL (8.5-10.1); CREATININE 2.4 mg/dL (0.7-1.3); GFR 26.6; MAGNESIUM 1.9 mg/dL (1.8-2.4); PHOSPHORUS 2.9 mg/dL (2.6-4.7); POTASSIUM 3.8 mmol/L (3.5-5.1); TOTAL BILIRUBIN 0.6 mg/dL (0.2-1.0); TOTAL PROTEIN 5.5 g/dL (6.4-8.2)
--- NOTE | 2017-06-27 07:22 | RAD ---
Portable chest, 06/27/2017: History: Respiratory failure Comparison is made to yesterday's study. An NG tube remains in place although its tip is not visible. A right jugular central venous catheter extends into the superior vena cava. The heart is enlarged. There is extensive calcific plaquing of the aorta. The depth of inspiration is better than on yesterday's study. The pulmonary vascularity remains congested. There are mild patchy pulmonary infiltrates. There are persistent basilar opacities compatible with pleural fluid. Allowing for the technical differences, the findings are probably unchanged. No new abnormality is detected. IMPRESSION: No significant change since yesterday's study.
[2017-06-27] MEDS ORDERED: IV NORMAL SALINE 500ML BAG 500 ML IV ONE (08:00)
--- NOTE | 2017-06-27 08:26 | PDOC ---
SUBJECTIVE ROS Renal Txp/ CKD Doing same or little better ; lon TF via NGT CVS: no Orthopnea, no CP RESP: no SOB, no SHELTON GI: no Nausea, no Vomiting : no Dysuria, no Urgency OBJECTIVE Vital Signs Vital Signs Date Time Temp Pulse Resp B/P (MAP) Pulse Ox O2 Delivery O2 Flow Rate FiO2 06/27/17 06:00 83 23 158/71 (100) 99 Room Air 06/27/17 04:00 98.1 98.1 I & 0 Intake and Output 06/27/17 07:00 Intake Total 2776 ml Output Total 1144 ml Balance 1632 ml IV Total 750 ml Tube Feeding 1276 ml Other 750 ml Output Urine Total 1044 ml Stool Total 100 ml Gastric Drainage Total 0 ml # Voids 1 PHYSICAL EXAM Physical Exam General Appearance: Awake but still drowsy, In no Distress; morbidly obese WM Eyes: Sclera Anicteric- Conjunctiva Normal EN: No EN Drainage Mucous Memb. dryish; ; NGT in place Neck: no JVD no JVP Supple no Thyromegaly; short thick neck CVS: S1 S2 no Murmur No Gallop No Rub Ch Lymph Edema (? elephantiasis) ; Upper ext with tr edema Resp: no Rales rare Rhonchi no Acc. Muscle use GI: BS +ve NO Bruit Non Tender Non Distended; Morbidly obese : no CVA tenderness; no Suprapubic Tenderness; unable to palpate Txp given obesity Assessment & Plan: CKD -T stage III/ IV - Creat up a little today. UO is scant - IVF as ordered - but I am concerned re worsening CXR (without overt worsening of resp status) Oliguria (REJI ?) - check Claus and FK levels. IVF boluses prn. ^ PO fluids with TF Renal Txp - ct current immunosuppression. has NGT placed back in pending swallow eval Edema/ Anasarca - suspect RHF / Pulm HTN - somewhat better after IV Alb Nutrition - await swallow eval - TF for now ^Na - ^ Free water supplementation via TF and 0.45 Boluses for oliguria Renal Masses on [place] [place] Kid[facility] - Will need URO eval when avail.- Consider Transfer to [facility] for same. Kidney stone seen on CT - Not seen on US CHF on CXR - ? Needs Pl. Eff drained - will request cardiology to reval for same - ? due to Ao insuff May need Pall care mtg to assess goals of care tristan with Renal Masses, Recc Fluid build up. ? Need for Txp Bx COMMENT/RELEVANT DATA Meds Current Medications Medications (Trade) Dose Ordered Sig/Ivett Start Time Stop Time Status Last Admin Dose Admin Acetaminophen (Tylenol) 650 mg PRN Q4HRS PRN 06/22/17 06:45 06/23/17 06:44 DC Albumin Human 200 ml @ 100 mls/hr Q6HRS 06/23/17 06:00 06/24/17 07:59 DC 06/24/17 05:47 100 MLS/HR Amino Acids/ Glycerin/ Electrolytes 1,000 ml @ 80 mls/hr [id number] 06/26/17 09:15 06/26/17 10:44 DC Aspirin (Children'S Aspirin) 81 mg DAILY 06/22/17 12:00 06/26/17 11:04 81 MG Atorvastatin Calcium (Lipitor) 10 mg DAILY 06/22/17 12:00 06/26/17 11:04 10 MG Azathioprine (Imuran) 50 mg DAILY 06/22/17 12:00 06/26/17 11:04 50 MG Cetirizine HCl (ZyrTEC) 10 mg DAILY 06/22/17 12:00 06/26/17 11:05 10 MG Chlorhexidine Gluconate (Peridex) 15 ml BID 06/25/17 21:00 06/26/17 08:42 DC Dextrose (Dextrose 50%-Water Syringe) 12.5 gm PRN Q15MIN PRN 06/25/17 06:15 06/25/17 06:22 12.5 GM Enoxaparin Sodium (Lovenox 40mg Syringe) 40 mg BID 06/25/17 12:00 06/26/17 20:43 40 MG Etomidate (Amidate) 20 mg STK-MED ONCE 06/22/17 05:47 06/22/17 05:48 DC Famotidine (Pepcid) 20 mg HS 06/22/17 21:00 06/26/17 20:44 20 MG Fentanyl Citrate (Fentanyl 2ml Vial) 25 mcg PRN Q4HRS PRN 06/23/17 15:45 06/23/17 18:35 25 MCG Furosemide (Lasix) 20 mg 1X ONCE 06/24/17 11:15 06/24/17 11:16 DC 06/24/17 12:59 20 MG Insulin Detemir (Levemir) 55 units QHS 06/25/17 21:00 06/26/17 20:43 55 UNITS Isosorbide Mononitrate (Imdur) 30 mg DAILY 06/26/17 09:00 Levothyroxine Sodium (Synthroid) 88 mcg DAILYAC 06/22/17 12:00 06/26/17 11:04 88 MCG Magnesium Sulfate/ Dextrose 50 ml @ 25 mls/hr 1X ONCE 06/24/17 06:30 06/24/17 08:29 DC 06/24/17 06:32 25 MLS/HR Metoprolol Tartrate (Lopressor) 50 mg BID 06/22/17 21:00 06/26/17 20:44 50 MG Midazolam HCl (Versed) 2 mg 1X ONCE 06/22/17 07:30 06/22/17 07:31 DC 06/22/17 07:30 2 MG Norepinephrine Bitartrate 250 ml @ 0 mls/hr CONT PRN 06/22/17 08:30 06/22/17 13:02 5 MLS/HR Nystatin (Nystop) 1 farhana BID 06/25/17 21:00 06/26/17 20:41 1 FARHANA Ondansetron HCl (Zofran) 4 mg PRN Q8HRS PRN 06/22/17 06:45 06/23/17 06:44 DC Piperacillin Sod/ Tazobactam Sod (Zosyn Per Pharmacy) 1 each PRN DAILY PRN 06/22/17 11:00 06/26/17 08:38 DC Piperacillin Sod/ Tazobactam Sod (Zosyn) 4.5 gm Q6HRS 06/22/17 12:00 06/27/17 05:51 4.5 GM Potassium Phosphate 13.6 mmol/Sodium Chloride 104.5333 ml @ 52.267 m... Q2H 06/24/17 11:00 06/24/17 16:59 DC 06/24/17 18:07 52.267 MLS/HR Prednisone (Prednisone) 20 mg DAILY 06/22/17 12:00 06/26/17 11:04 20 MG Propofol 100 ml @ 0 mls/hr CONT PRN 06/22/17 06:30 06/25/17 03:20 0 MLS/HR Rocuronium [place] (Zemuron) 50 mg STK-MED ONCE 06/22/17 05:48 06/22/17 05:49 DC Sodium Chloride 250 ml @ 250 mls/hr 1X ONCE 06/27/17 03:15 06/27/17 04:14 DC 06/27/17 03:00 250 MLS/HR Tacrolimus (Prograf) 1 mg BID 06/22/17 12:00 06/26/17 20:44 1 MG Vancomycin HCl 1 each 1X ONCE 06/24/17 12:30 06/24/17 12:31 DC 06/24/17 12:30 1 EACH Vancomycin HCl (Vanco Per Pharmacy) 1 each PRN DAILY PRN 06/22/17 11:00 06/26/17 15:34 1 EACH Vancomycin HCl 2 gm/Dextrose/ Sodium Chloride 500 ml @ 250 mls/hr Q48H 06/26/17 13:00 06/26/17 13:17 250 MLS/HR Lab Laboratory Tests Test 06/26/17 12:00 06/26/17 20:40 06/27/17 06:11 06/27/17 07:35 Sodium Level 149 mmol/L (136-145) 147 mmol/L (136-145) Potassium Level 3.7 mmol/L (3.5-5.1) 3.8 mmol/L (3.5-5.1) Chloride Level 110 mmol/L (98-107) 108 mmol/L (98-107) Carbon Dioxide Level 32 mmol/L (21-32) 30 mmol/L (21-32) Anion Gap 7 (6-14) 9 (6-14) Blood Urea Nitrogen 22 mg/dL (8-26) 25 mg/dL (8-26) Creatinine 2.0 mg/dL (0.7-1.3) 2.4 mg/dL (0.7-1.3) Estimated GFR (Cockcroft-Gault) 32.8 26.6 Glucose Level 67 mg/dL (70-99) 84 mg/dL (70-99) Calcium Level 8.8 mg/dL (8.5-10.1) 8.4 mg/dL (8.5-10.1) Glucose (Fingerstick) 116 mg/dL (70-99) 79 mg/dL (70-99) White Blood Count 8.2 x10^3/uL (4.0-11.0) Red Blood Count 2.90 x10^6/uL (4.30-5.70) Hemoglobin 9.2 g/dL (13.0-17.5) Hematocrit 28.7 % (39.0-53.0) Mean Corpuscular Volume 99 fL (79-100) Mean Corpuscular Hemoglobin 32 pg (25-35) Mean Corpuscular Hemoglobin Concent 32 g/dL (31-37) Red Cell Distribution Width 21.0 % (11.5-14.5) Platelet Count 172 x10^3/uL (140-400) Neutrophils (%) (Auto) 78 % (31-73) Lymphocytes (%) (Auto) 11 % (24-48) Monocytes (%) (Auto) 10 % (0-9) Eosinophils (%) (Auto) 1 % (0-3) Basophils (%) (Auto) 1 % (0-3) Neutrophils # (Auto) 6.4 x10^3uL (1.8-7.7) Lymphocytes # (Auto) 0.9 x10^3/uL (1.0-4.8) Monocytes # (Auto) 0.8 x10^3/uL (0.0-1.1) Eosinophils # (Auto) 0.0 x10^3/uL (0.0-0.7) Basophils # (Auto) 0.1 x10^3/uL (0.0-0.2) BUN/Creatinine Ratio 10 (6-20) Phosphorus Level 2.9 mg/dL (2.6-4.7) Magnesium Level 1.9 mg/dL (1.8-2.4) Total Bilirubin 0.6 mg/dL (0.2-1.0) Aspartate Amino Transf (AST/SGOT) 18 U/L (15-37) Alanine Aminotransferase (ALT/SGPT) 12 U/L (16-63) Alkaline Phosphatase 77 U/L (46-116) Total Protein 5.5 g/dL (6.4-8.2) Albumin 2.5 g/dL (3.4-5.0) Albumin/Globulin Ratio 0.8 (1.0-1.7) SCHUYLER GALAVIZ MD Jun 27, 2017 08:26
[2017-06-27] MEDS: ISOSORBIDE MONONITRATE ER 30 MG TAB.ER.24H PO SCH (09:00)
--- NOTE | 2017-06-27 09:44 | PDOC ---
PROGRESS NOTES Chief Complaint Chief Complaint Acute hypercarbic, hypoxic respiratory failure ASSESSMENT AND PLAN: 1. CHF exacerbation: no previous hx, poss driven by afib. echo on 06/22 with normal EF, pAP 52. CT with bilat effusions, suspected aspir PNA. on 3liters nc 2. Afib: rate controlled. cardiology following. apparently, family unaware of existing hx; per cardiology, pt has declined OAC in past 3. Aspir PNA: bilat with PO contrast in lower lungs. on broad spectrum Abx 4. Anemia: significant drop of 2+g since admit, now stable ~8.5. no obvious sign of massive bleeding. both urine and respir secretions pink. check OB stool poss chronic anemia (renal insufficiency, inflammation) with initial intravascular contraction 5. REJI on CKD3: s/p renal transplant. sl creat bump 2/2 vasomotor etiologies. essentially stable. nephrology following 6. Immunocompromise: on mult immunosuppressants post renal transplant 7. HTN: borderline control on BB. BEATA-I/ARB is ok by nephrology 8. DM2: currently tight control with home levemir dose. decrease some monitor with ISS 9. BEVERLY: on CPAP at home, not in SNF over past 2 weeks 10. Nutrition: NG 11. Prophylaxis: H2B, lovenox 12. MOD AI and pulmonary hypertension 13. severe lymphedema and dermatitis right leg 14. hypoxic respiratory failure requiring mechanical intubation 15. pulmonary edema 16. 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 3 plus pitting edema Skin: Other (chronic venous stasis changes) General: Alert, No acute distress Heart: Other (AFIB rate controlled; distant heart sounds) Lungs: Crackles Abdomen: Soft, Other (obese) Extremities: Other ( s/p L AKA) Skin: Other (chronic venous stasis changes) Labs LABS Laboratory Tests Test 06/26/17 12:00 06/26/17 20:40 06/27/17 06:11 06/27/17 07:35 Sodium Level 149 mmol/L (136-145) 147 mmol/L (136-145) Potassium Level 3.7 mmol/L (3.5-5.1) 3.8 mmol/L (3.5-5.1) Chloride Level 110 mmol/L (98-107) 108 mmol/L (98-107) Carbon Dioxide Level 32 mmol/L (21-32) 30 mmol/L (21-32) Anion Gap 7 (6-14) 9 (6-14) Blood Urea Nitrogen 22 mg/dL (8-26) 25 mg/dL (8-26) Creatinine 2.0 mg/dL (0.7-1.3) 2.4 mg/dL (0.7-1.3) Estimated GFR (Cockcroft-Gault) 32.8 26.6 Glucose Level 67 mg/dL (70-99) 84 mg/dL (70-99) Calcium Level 8.8 mg/dL (8.5-10.1) 8.4 mg/dL (8.5-10.1) Glucose (Fingerstick) 116 mg/dL (70-99) 79 mg/dL (70-99) White Blood Count 8.2 x10^3/uL (4.0-11.0) Red Blood Count 2.90 x10^6/uL (4.30-5.70) Hemoglobin 9.2 g/dL (13.0-17.5) Hematocrit 28.7 % (39.0-53.0) Mean Corpuscular Volume 99 fL (79-100) Mean Corpuscular Hemoglobin 32 pg (25-35) Mean Corpuscular Hemoglobin Concent 32 g/dL (31-37) Red Cell Distribution Width 21.0 % (11.5-14.5) Platelet Count 172 x10^3/uL (140-400) Neutrophils (%) (Auto) 78 % (31-73) Lymphocytes (%) (Auto) 11 % (24-48) Monocytes (%) (Auto) 10 % (0-9) Eosinophils (%) (Auto) 1 % (0-3) Basophils (%) (Auto) 1 % (0-3) Neutrophils # (Auto) 6.4 x10^3uL (1.8-7.7) Lymphocytes # (Auto) 0.9 x10^3/uL (1.0-4.8) Monocytes # (Auto) 0.8 x10^3/uL (0.0-1.1) Eosinophils # (Auto) 0.0 x10^3/uL (0.0-0.7) Basophils # (Auto) 0.1 x10^3/uL (0.0-0.2) BUN/Creatinine Ratio 10 (6-20) Phosphorus Level 2.9 mg/dL (2.6-4.7) Magnesium Level 1.9 mg/dL (1.8-2.4) Total Bilirubin 0.6 mg/dL (0.2-1.0) Aspartate Amino Transf (AST/SGOT) 18 U/L (15-37) Alanine Aminotransferase (ALT/SGPT) 12 U/L (16-63) Alkaline Phosphatase 77 U/L (46-116) Total Protein 5.5 g/dL (6.4-8.2) Albumin 2.5 g/dL (3.4-5.0) Albumin/Globulin Ratio 0.8 (1.0-1.7) Test 06/27/17 08:43 06/27/17 09:39 Glucose (Fingerstick) 75 mg/dL (70-99) 71 mg/dL (70-99) Assessment and Plan Assessmemt and Plan Problems Medical Problems: (1) Acute encephalopathy Status: Acute (2) Pulmonary edema Status: Acute (3) Respiratory acidosis Status: Acute Chief Complaint Acute hypercarbic, hypoxic respiratory failure ASSESSMENT AND PLAN: 1. CHF exacerbation: no previous hx, poss driven by afib. echo on 06/22 with normal EF, pAP 52. CT with bilat effusions, suspected aspir PNA. on 3liters nc 2. Afib: rate controlled. cardiology following. apparently, family unaware of existing hx; per cardiology, pt has declined OAC in past 3. Aspir PNA: bilat with PO contrast in lower lungs. on broad spectrum Abx 4. Anemia: significant drop of 2+g since admit, now stable ~8.5. no obvious sign of massive bleeding. both urine and respir secretions pink. check OB stool poss chronic anemia (renal insufficiency, inflammation) with initial intravascular contraction 5. REJI on CKD3: s/p renal transplant. sl creat bump dec urine output. nephrology following 6. Immunocompromise: on mult immunosuppressants post renal transplant 7. HTN: borderline control on BB. BEATA-I/ARB is ok by nephrology 8. DM2: currently tight control with home levemir dose. decrease some monitor with ISS 9. BEVERLY: on CPAP at home, not in SNF over past 2 weeks 10. Nutrition: NG 11. Prophylaxis: H2B, lovenox 12. MOD AI and pulmonary hypertension 13. severe lymphedema and dermatitis right leg 14. hypoxic respiratory failure requiring mechanical intubation 15. pulmonary edema plan palliative care consult fluid boluses History of Present Illness History of Present Illness awake, following commands, CONFUSED TO DETAILS Problems: Comment Review of Relevant I have reviewed the following items buzz (where applicable) has been applied. Labs Laboratory Tests Test 06/25/17 12:55 06/25/17 20:46 06/26/17 05:55 06/26/17 12:00 O2 Saturation 96 % (92-99) Arterial Blood pH 7.42 (7.35-7.45) Arterial Blood pCO2 at Patient Temp 42 mmHg (35-46) Arterial Blood pO2 at Patient Temp 92 mmHg (65-108) Arterial Blood HCO3 27 mmol/L (21-28) Arterial Blood Base Excess 2 mmol/L (-3-3) FiO2 40 Glucose (Fingerstick) 79 mg/dL (70-99) White Blood Count 5.8 x10^3/uL (4.0-11.0) Red Blood Count 2.68 x10^6/uL (4.30-5.70) Hemoglobin 8.5 g/dL (13.0-17.5) Hematocrit 26.4 % (39.0-53.0) Mean Corpuscular Volume 99 fL (79-100) Mean Corpuscular Hemoglobin 32 pg (25-35) Mean Corpuscular Hemoglobin Concent 32 g/dL (31-37) Red Cell Distribution Width 21.4 % (11.5-14.5) Platelet Count 147 x10^3/uL (140-400) Neutrophils (%) (Auto) 77 % (31-73) Lymphocytes (%) (Auto) 12 % (24-48) Monocytes (%) (Auto) 10 % (0-9) Eosinophils (%) (Auto) 1 % (0-3) Basophils (%) (Auto) 0 % (0-3) Neutrophils # (Auto) 4.4 x10^3uL (1.8-7.7) Lymphocytes # (Auto) 0.7 x10^3/uL (1.0-4.8) Monocytes # (Auto) 0.6 x10^3/uL (0.0-1.1) Eosinophils # (Auto) 0.0 x10^3/uL (0.0-0.7) Basophils # (Auto) 0.0 x10^3/uL (0.0-0.2) Sodium Level 149 mmol/L (136-145) 149 mmol/L (136-145) Potassium Level 3.7 mmol/L (3.5-5.1) 3.7 mmol/L (3.5-5.1) Chloride Level 109 mmol/L (98-107) 110 mmol/L (98-107) Carbon Dioxide Level 31 mmol/L (21-32) 32 mmol/L (21-32) Anion Gap 9 (6-14) 7 (6-14) Blood Urea Nitrogen 22 mg/dL (8-26) 22 mg/dL (8-26) Creatinine 2.1 mg/dL (0.7-1.3) 2.0 mg/dL (0.7-1.3) Estimated GFR (Cockcroft-Gault) 31.0 32.8 BUN/Creatinine Ratio 10 (6-20) Glucose Level 63 mg/dL (70-99) 67 mg/dL (70-99) Calcium Level 8.4 mg/dL (8.5-10.1) 8.8 mg/dL (8.5-10.1) Phosphorus Level 3.1 mg/dL (2.6-4.7) Magnesium Level 2.0 mg/dL (1.8-2.4) Total Bilirubin 0.7 mg/dL (0.2-1.0) Aspartate Amino Transf (AST/SGOT) 17 U/L (15-37) Alanine Aminotransferase (ALT/SGPT) 11 U/L (16-63) Alkaline Phosphatase 65 U/L (46-116) Total Protein 5.5 g/dL (6.4-8.2) Albumin 2.8 g/dL (3.4-5.0) Albumin/Globulin Ratio 1.0 (1.0-1.7) Test 06/26/17 20:40 06/27/17 06:11 06/27/17 07:35 06/27/17 08:43 Glucose (Fingerstick) 116 mg/dL (70-99) 79 mg/dL (70-99) 75 mg/dL (70-99) White Blood Count 8.2 x10^3/uL (4.0-11.0) Red Blood Count 2.90 x10^6/uL (4.30-5.70) Hemoglobin 9.2 g/dL (13.0-17.5) Hematocrit 28.7 % (39.0-53.0) Mean Corpuscular Volume 99 fL (79-100) Mean Corpuscular Hemoglobin 32 pg (25-35) Mean Corpuscular Hemoglobin Concent 32 g/dL (31-37) Red Cell Distribution Width 21.0 % (11.5-14.5) Platelet Count 172 x10^3/uL (140-400) Neutrophils (%) (Auto) 78 % (31-73) Lymphocytes (%) (Auto) 11 % (24-48) Monocytes (%) (Auto) 10 % (0-9) Eosinophils (%) (Auto) 1 % (0-3) Basophils (%) (Auto) 1 % (0-3) Neutrophils # (Auto) 6.4 x10^3uL (1.8-7.7) Lymphocytes # (Auto) 0.9 x10^3/uL (1.0-4.8) Monocytes # (Auto) 0.8 x10^3/uL (0.0-1.1) Eosinophils # (Auto) 0.0 x10^3/uL (0.0-0.7) Basophils # (Auto) 0.1 x10^3/uL (0.0-0.2) Sodium Level 147 mmol/L (136-145) Potassium Level 3.8 mmol/L (3.5-5.1) Chloride Level 108 mmol/L (98-107) Carbon Dioxide Level 30 mmol/L (21-32) Anion Gap 9 (6-14) Blood Urea Nitrogen 25 mg/dL (8-26) Creatinine 2.4 mg/dL (0.7-1.3) Estimated GFR (Cockcroft-Gault) 26.6 BUN/Creatinine Ratio 10 (6-20) Glucose Level 84 mg/dL (70-99) Calcium Level 8.4 mg/dL (8.5-10.1) Phosphorus Level 2.9 mg/dL (2.6-4.7) Magnesium Level 1.9 mg/dL (1.8-2.4) Total Bilirubin 0.6 mg/dL (0.2-1.0) Aspartate Amino Transf (AST/SGOT) 18 U/L (15-37) Alanine Aminotransferase (ALT/SGPT) 12 U/L (16-63) Alkaline Phosphatase 77 U/L (46-116) Total Protein 5.5 g/dL (6.4-8.2) Albumin 2.5 g/dL (3.4-5.0) Albumin/Globulin Ratio 0.8 (1.0-1.7) Test 06/27/17 09:39 Glucose (Fingerstick) 71 mg/dL (70-99) Laboratory Tests Test 06/26/17 12:00 06/26/17 20:40 06/27/17 06:11 06/27/17 07:35 Sodium Level 149 mmol/L (136-145) 147 mmol/L (136-145) Potassium Level 3.7 mmol/L (3.5-5.1) 3.8 mmol/L (3.5-5.1) Chloride Level 110 mmol/L (98-107) 108 mmol/L (98-107) Carbon Dioxide Level 32 mmol/L (21-32) 30 mmol/L (21-32) Anion Gap 7 (6-14) 9 (6-14) Blood Urea Nitrogen 22 mg/dL (8-26) 25 mg/dL (8-26) Creatinine 2.0 mg/dL (0.7-1.3) 2.4 mg/dL (0.7-1.3) Estimated GFR (Cockcroft-Gault) 32.8 26.6 Glucose Level 67 mg/dL (70-99) 84 mg/dL (70-99) Calcium Level 8.8 mg/dL (8.5-10.1) 8.4 mg/dL (8.5-10.1) Glucose (Fingerstick) 116 mg/dL (70-99) 79 mg/dL (70-99) White Blood Count 8.2 x10^3/uL (4.0-11.0) Red Blood Count 2.90 x10^6/uL (4.30-5.70) Hemoglobin 9.2 g/dL (13.0-17.5) Hematocrit 28.7 % (39.0-53.0) Mean Corpuscular Volume 99 fL (79-100) Mean Corpuscular Hemoglobin 32 pg (25-35) Mean Corpuscular Hemoglobin Concent 32 g/dL (31-37) Red Cell Distribution Width 21.0 % (11.5-14.5) Platelet Count 172 x10^3/uL (140-400) Neutrophils (%) (Auto) 78 % (31-73) Lymphocytes (%) (Auto) 11 % (24-48) Monocytes (%) (Auto) 10 % (0-9) Eosinophils (%) (Auto) 1 % (0-3) Basophils (%) (Auto) 1 % (0-3) Neutrophils # (Auto) 6.4 x10^3uL (1.8-7.7) Lymphocytes # (Auto) 0.9 x10^3/uL (1.0-4.8) Monocytes # (Auto) 0.8 x10^3/uL (0.0-1.1) Eosinophils # (Auto) 0.0 x10^3/uL (0.0-0.7) Basophils # (Auto) 0.1 x10^3/uL (0.0-0.2) BUN/Creatinine Ratio 10 (6-20) Phosphorus Level 2.9 mg/dL (2.6-4.7) Magnesium Level 1.9 mg/dL (1.8-2.4) Total Bilirubin 0.6 mg/dL (0.2-1.0) Aspartate Amino Transf (AST/SGOT) 18 U/L (15-37) Alanine Aminotransferase (ALT/SGPT) 12 U/L (16-63) Alkaline Phosphatase 77 U/L (46-116) Total Protein 5.5 g/dL (6.4-8.2) Albumin 2.5 g/dL (3.4-5.0) Albumin/Globulin Ratio 0.8 (1.0-1.7) Test 06/27/17 08:43 06/27/17 09:39 Glucose (Fingerstick) 75 mg/dL (70-99) 71 mg/dL (70-99) Medications Current Medications Etomidate (Amidate) 20 mg STK-MED ONCE IV ; Start 06/22/17 at 05:47; Stop at 05:48; Status DC Rocuronium Perry (Zemuron) 50 mg STK-MED ONCE .ROUTE ; Start 06/22/17 at 05:48 ; Stop 06/22/17 at 05:49; Status DC Propofol 50 ml @ As Directed STK-MED ONCE IV ; Start 06/22/17 at 06:15; Stop at 06:16; Status DC Propofol 100 ml @ 0 mls/hr CONT PRN IV SEE I/O RECORD Last administered on 06/25 03:20; Start 06/22/17 at 06:30 Ondansetron HCl (Zofran) 4 mg PRN Q8HRS PRN IV NAUSEA/VOMITING; Start 06/22/17 at 06:45; Stop 06/23/17 at 06:44; Status DC Fentanyl Citrate (Fentanyl 2ml Vial) 50 mcg PRN Q1HR PRN IV PAIN Last administered on 06/22/17 07:04; Start 06/22/17 at 06:45; Stop 06/23/17 at 06:44 ; Status DC Sodium Chloride 1,000 ml @ 75 mls/hr [id number] IV ; Start 06/22/17 at 06:45; Stop 06/22/17 at 19:47; Status DC Acetaminophen (Tylenol) 650 mg PRN Q4HRS PRN PO FEVER; Start 06/22/17 at 06:45 ; Stop 06/23/17 at 06:44; Status DC Midazolam HCl (Versed) 2 mg STK-MED ONCE .ROUTE ; Start 06/22/17 at 07:17; Stop 06/22/17 at 07:18; Status DC Midazolam HCl 100 ml @ 0 mls/hr CONT PRN IV SEE I/O RECORD Last administered on 06/22/17 23:38; Start 06/22/17 at 07:30 Midazolam HCl (Versed) 2 mg 1X ONCE IV Last administered on 06/22/17 07:30; Start 06/22/17 at 07:30; Stop 06/22/17 at 07:31; Status DC Norepinephrine Bitartrate 250 ml @ As Directed STK-MED ONCE IV ; Start at 08:27; Stop 06/22/17 at 08:28; Status DC Norepinephrine Bitartrate 250 ml @ 0 mls/hr CONT PRN IV SEE I/O RECORD Last administered on 06/22/17 13:02; Start 06/22/17 at 08:30 Sodium Chloride 1,000 ml @ 125 mls/hr Q8H IV Last administered on 06/23/17 08 :21; Start 06/22/17 at 11:00; Stop 06/23/17 at 14:28; Status DC Sodium Chloride 1,000 ml @ 999 mls/hr 1X ONCE IV Last administered on 14:32; Start 06/22/17 at 10:45; Stop 06/22/17 at 11:45; Status DC Vancomycin HCl (Vanco Per Pharmacy) 1 each PRN DAILY PRN MC SEE COMMENTS Last administered on 06/26/17 15:34; Start 06/22/17 at 11:00 Piperacillin Sod/ Tazobactam Sod (Zosyn Per Pharmacy) 1 each PRN DAILY PRN MC SEE COMMENTS; Start 06/22/17 at 11:00; Stop 06/26/17 at 08:38; Status DC Aspirin (Children'S Aspirin) 81 mg DAILY PO Last administered on 06/26/17 11: 04; Start 06/22/17 at 12:00 Atorvastatin Calcium (Lipitor) 10 mg DAILY PO Last administered on 06/26/17 11 :04; Start 06/22/17 at 12:00 Azathioprine (Imuran) 50 mg DAILY PO Last administered on 06/26/17 11:04; Start 06/22/17 at 12:00 Famotidine (Pepcid) 20 mg HS PO Last administered on 06/26/17 20:44; Start at 21:00 Levothyroxine Sodium (Synthroid) 88 mcg DAILYAC PO Last administered on 11:04; Start 06/22/17 at 12:00 Prednisone (Prednisone) 20 mg DAILY PO Last administered on 06/26/17 11:04; Start 06/22/17 at 12:00 Insulin Detemir (Levemir) 70 units QHS SQ ; Start 06/22/17 at 21:00; Stop at 21:10; Status DC Cetirizine HCl (ZyrTEC) 10 mg DAILY PO Last administered on 06/26/17 11:05; Start 06/22/17 at 12:00 Metoprolol Tartrate (Lopressor) 100 mg BID PO ; Start 06/22/17 at 12:00; Stop 06/22/17 at 18:33; Status DC Tacrolimus (Prograf) 1 mg BID PO Last administered on 06/26/17 20:44; Start 06/22/17 at 12:00 Vancomycin HCl 2 gm/Dextrose/ Sodium Chloride 500 ml @ 250 mls/hr 1X ONCE IV Last administered on 06/22/17 13:04; Start 06/22/17 at 11:30; Stop 06/22/17 at 13:29; Status DC Piperacillin Sod/ Tazobactam Sod (Zosyn) 4.5 gm Q6HRS IVP Last administered on 06/27/17 05:51; Start 06/22/17 at 12:00 Vancomycin HCl 2 gm/Dextrose/ Sodium Chloride 500 ml @ 250 mls/hr Q24H IV ; Start 06/23/17 at 13:00; Stop 06/23/17 at 13:00; Status DC Vancomycin HCl 1 each 1X ONCE MC Last administered on 06/24/17 12:30; Start 06/24/17 at 12:30; Stop 06/24/17 at 12:31; Status DC Metoprolol Tartrate (Lopressor) 50 mg BID PO Last administered on 06/26/17 20: 44; Start 06/22/17 at 21:00 Albumin Human 200 ml @ 100 mls/hr TID IV Last administered on 06/22/17 20:44 ; Start 06/22/17 at 21:00; Stop 06/23/17 at 02:42; Status DC Insulin Detemir (Levemir) 70 units QHS SQ Last administered on 06/24/17 21:53 ; Start 06/23/17 at 21:00; Stop 06/25/17 at 10:40; Status DC Insulin Detemir (Levemir) 30 units 1X ONCE SQ Last administered on 06/22/17 21:18; Start 06/22/17 at 21:15; Stop 06/22/17 at 21:16; Status DC Albumin Human 200 ml @ 100 mls/hr TID IV ; Start 06/23/17 at 03:00; Stop at 03:00; Status DC Albumin Human 200 ml @ 100 mls/hr Q6HRS IV Last administered on 06/24/17 05: 47; Start 06/23/17 at 06:00; Stop 06/24/17 at 07:59; Status DC Vancomycin HCl 2 gm/Dextrose/ Sodium Chloride 500 ml @ 250 mls/hr Q24H IV Last administered on 06/24/17 14:43; Start 06/23/17 at 13:00; Stop 06/25/17 at 08:36; Status DC Magnesium Sulfate/ Dextrose 50 ml @ 25 mls/hr PRN DAILY PRN IV for Mag < 1.7 on am labs Last administered on 06/25/17 10:43; Start 06/23/17 at 14:30 Fentanyl Citrate (Fentanyl 2ml Vial) 25 mcg PRN Q4HRS PRN IV PAIN Last administered on 06/23/17 18:35; Start 06/23/17 at 15:45 Magnesium Sulfate/ Dextrose 50 ml @ 25 mls/hr 1X ONCE IV Last administered on 06/24/17 06:32; Start 06/24/17 at 06:30; Stop 06/24/17 at 08:29; Status DC Potassium Phosphate 13.6 mmol/Sodium Chloride 104.5333 ml @ 52.267 m... Q2H IV Last administered on 06/24/17 18:07; Start 06/24/17 at 11:00; Stop 06/24/17 at 16:59; Status DC Furosemide (Lasix) 20 mg 1X ONCE IVP Last administered on 06/24/17 12:59; Start 06/24/17 at 11:15; Stop 06/24/17 at 11:16; Status DC Dextrose (Dextrose 50%-Water Syringe) 25 gm STK-MED ONCE IV ; Start 06/25/17 at 05:58; Stop 06/25/17 at 05:59; Status DC Dextrose (Dextrose 50%-Water Syringe) 12.5 gm PRN Q15MIN PRN IV SEE COMMENTS Last administered on 06/25/17 06:22; Start 06/25/17 at 06:15 Chlorhexidine Gluconate (Peridex) 15 ml BID SWSP ; Start 06/25/17 at 21:00; Stop 06/26/17 at 08:42; Status DC Vancomycin HCl 2 gm/Dextrose/ Sodium Chloride 500 ml @ 250 mls/hr Q48H IV Last administered on 06/26/17 13:17; Start 06/26/17 at 13:00 Insulin Detemir (Levemir) 55 units QHS SQ Last administered on 06/26/17 20:43 ; Start 06/25/17 at 21:00 Enoxaparin Sodium (Lovenox 40mg Syringe) 40 mg BID SQ Last administered on 06/26 20:43; Start 06/25/17 at 12:00 Nystatin (Nystop) 1 alexis BID TP Last administered on 06/26/17 20:41; Start 06/25/17 at 21:00 Isosorbide Mononitrate (Imdur) 30 mg DAILY PO ; Start 06/26/17 at 09:00 Amino Acids/ Glycerin/ Electrolytes 1,000 ml @ 80 mls/hr [id number] IV ; Start at 09:15; Stop 06/26/17 at 10:44; Status DC Sodium Chloride 500 ml @ 250 mls/hr 1X ONCE IV Last administered on 23:30; Start 06/26/17 at 23:45; Stop 06/27/17 at 01:44; Status DC Sodium Chloride 250 ml @ 250 mls/hr 1X ONCE IV Last administered on 03:00; Start 06/27/17 at 03:15; Stop 06/27/17 at 04:14; Status DC Active Scripts Active Keflex (Cephalexin) 500 Mg Capsule 500 Mg PO QID 5 Days Reported Amlodipine Besylate 5 Mg Tablet 10 Mg PO DAILY Azathioprine 50 Mg Tablet 4 Tab PO DAILY Docusate Sodium 100 Mg Capsule 1 Cap PO TID PRN PRN Ferrous Sulfate 325 Mg Tablet 1 Tab PO BIDAC Ondansetron Hcl 4 Mg Tablet 1 Tab PO PRN Q8HRS PRN Prednisone 10 Mg Tablet 5 Mg PO DAILY Thiamine Hcl 100 Mg Tablet 100 Mg PO Nystatin-Triamcinolone Cream (Nystatin/Triamcin) 15 Gm Cream..g. 1 Alexis TP BID Pantoprazole Sodium 40 Mg Tablet.dr 1 Tab PO DAILY Tacrolimus 0.5 Mg Capsule 0.5 Mg PO DAILY Tylenol (Acetaminophen) 325 Mg Tablet 1 Tab PO PRN Q6HRS PRN Haloperidol 0.5 Mg Tablet 0.25 Mg PO PRN Q8HRS PRN Metoprolol Tartrate 50 Mg Tablet 3 Tab PO BID Novolog Flexpen (Insulin Aspart) 100 Unit/1 Ml Insuln.pen 22 Unit SQ AC SUPPER Novolog Flexpen (Insulin Aspart) 100 Unit/1 Ml Insuln.pen 18 Unit SQ AC LUNCH Novolog Flexpen (Insulin Aspart) 100 Unit/1 Ml Insuln.pen 10 Unit SQ AC BREAKFAST Levothyroxine Sodium 88 Mcg Tablet 1 Tab PO DAILY Atorvastatin Calcium 10 Mg Tablet 1 Tab PO DAILY Loratadine 10 Mg Tablet 1 Tab PO DAILY Hydrochlorothiazide Tablet (Hydrochlorothiazide) 25 Mg Tablet 25 Mg PO DAILY Pepcid Ac (Famotidine) 20 Mg Tablet 20 Mg PO HS Tacrolimus 1 Mg Capsule 1 Mg PO BID Men's Multivitamin Gummies (Folic Acid/Multivit-Minerals) 200 Mcg Tab.chew 200 Mcg PO Aspirin 81 Mg Tab.chew 1 Tab PO DAILY Lantus (Insulin Glargine,Hum.rec.anlog) 100 Unit/1 Ml Vial 70 Unit SQ QHS Alendronate Sodium 70 Mg Tablet 70 Mg PO WEEKLY Vitals/I & O Vital Sign - Last 24 Hours 06/26/17 06/26/17 06/26/17 06/26/17 10:00 11:00 11:04 12:00 Pulse 78 78 76 Resp 15 23 B/P (MAP) 163/76 (105) 161/70 (100) 161/70 Pulse Ox 97 97 O2 Delivery Room Air Room Air Room Air 06/26/17 06/26/17 06/26/17 06/26/17 12:00 13:00 14:00 15:00 Temp 98.1 98.1 Pulse 70 74 72 74 Resp 20 18 21 16 B/P (MAP) 163/67 (99) 162/69 (100) 155/72 (99) 166/72 (103) Pulse Ox 97 95 97 99 O2 Delivery Room Air Room Air Room Air Room Air 06/26/17 06/26/17 06/26/17 06/26/17 16:00 16:00 17:00 18:00 Temp 98.3 98.3 Pulse 74 74 88 Resp 26 20 26 B/P (MAP) 164/78 (106) 173/76 (108) 179/78 (111) Pulse Ox 96 94 97 O2 Delivery Room Air Room Air Room Air Room Air 06/26/17 06/26/17 06/26/17 06/26/17 19:00 20:00 20:00 20:44 Temp 98.5 98.5 Pulse 80 80 80 Resp 19 21 B/P (MAP) 178/74 (108) 181/65 (103) 181/53 Pulse Ox 97 96 O2 Delivery Room Air Room Air Room Air 06/26/17 06/26/17 06/26/17 06/27/17 21:00 22:00 23:00 00:00 Temp 98.5 98.5 Pulse 76 74 74 76 Resp 21 25 24 22 B/P (MAP) 157/72 (100) 177/75 (109) 171/74 (106) 156/76 (102) Pulse Ox 97 96 97 98 O2 Delivery Room Air Room Air Room Air Room Air 06/27/17 06/27/17 06/27/17 06/27/17 00:00 01:00 02:00 03:00 Pulse 68 68 72 Resp 23 22 21 B/P (MAP) 166/76 (106) 154/68 (96) 167/77 (107) Pulse Ox 100 99 99 O2 Delivery Room Air Room Air Room Air Room Air 06/27/17 06/27/17 06/27/17 06/27/17 04:00 04:00 05:00 06:00 Temp 98.1 98.1 Pulse 79 77 83 Resp 21 20 23 B/P (MAP) 163/77 (105) 174/71 (105) 158/71 (100) Pulse Ox 99 98 99 O2 Delivery Room Air Room Air Room Air Room Air Intake and Output 06/26/17 06/26/17 06/27/17 15:00 23:00 07:00 Intake Total 300 ml 1150 ml 1326 ml Output Total 700 ml 402 ml 42 ml Balance -400 ml 748 ml 1284 ml Nutrition Consultation Dietary Evaluation: Recommendations by RD: Increase Calorie Intake, Add supplement feedings Comments: Diabetisource AC@goal rate 75 ml/hr w/150 ml water flushes q4 hrs or flushes per MD Expected Outcomes/Goals: TF tolerated at goal rate and providing > 60% est needs - met at times, ongoing Interpretation of weight loss: >7.5% in 3 months Malnutrition Findings: Food and Nutrition Intake (Mod: <75% est energy req 7days Malnutrition related to morbid: BMI>or equal to 40 Malnutrition related to morbid: Yes Weight Status: Morbidly Obese ÁLVARO BELTRAN MD Jun 27, 2017 09:44
[2017-06-27] MEDS: DEXTROSE 50% 25 GM / 50ML DISP.SYRIN. IV PRN (09:49)
[2017-06-27] MEDS: ENOXAPARIN 40 MG/0.4 ML SYRINGE. SQ SCH ×2 (10:52→21:04)
[2017-06-27] MEDS: ASPIRIN CHEWABLE 81 MG TABLET. PO SCH (10:52)
[2017-06-27] MEDS: LEVOTHYROXINE 88 MCG TABLET PO SCH (10:52)
[2017-06-27] MEDS: azaTHIOprine 50 MG TABLET PO SCH (10:52)
[2017-06-27] MEDS: CETIRIZINE HCL 10 MG TABLET. PO SCH (10:53)
[2017-06-27] MEDS: NYSTATIN TOPICAL POWDER 15GM BOTTLE. TP SCH ×2 (10:53→21:04)
[2017-06-27] MEDS: METOPROLOL TART IMMED RELEASE 50 MG TABLET. PO SCH ×2 (10:53→21:05)
[2017-06-27] MEDS: ATORVASTATIN CALCIUM 10 MG TABLET. PO SCH (10:53)
[2017-06-27] MEDS: predniSONE 20 MG TABLET PO SCH (10:53)
[2017-06-27] MEDS: TACROLIMUS 1 MG CAPSULE PO SCH ×2 (10:53→21:04)
--- NOTE | 2017-06-27 12:58 | PDOC2 ---
PALLIATIVE CARE Palliative Care Note Palliative Care Consult requested by Dr. Ontiveros to address end stage renal disease/post transplant Information obtained from medical record Diagnosis: CHF exacerbation: no previous hx, poss driven by afib. echo on 06/22 with normal EF, pAP 52. CT with bilat effusions, suspected aspir PNA. on 3liters nc Afib: rate controlled. cardiology following. apparently, family unaware of existing hx; per cardiology, pt has declined OAC in past Aspir PNA: bilat with PO contrast in lower lungs. on broad spectrum Abx Anemia: significant drop of 2+g since admit, now stable ~8.5. REJI on CKD3: s/p renal transplant. sl creat bump 2/2 vasomotor etiologies. Immunocompromise: on mult immunosuppressants post renal transplant HTN: DM2: Hypoxic Respiratory Failure Pulmonary Edema Patient answers questions---confused at times. Code Status: Full Code Nhi VAZQUEZ spoke with Plan family meeting at 1500. 1530 Met with . Patient has 2 sons Francisco and Jermaine. Jermaine was able to join the conversation at the end. Updated on his fathers condition Reviewed medical condition; Output minimal. Pulmonary edema; CHF--diastolic; increased edema; malnutrition. Increased confusion. for 53 years. Patient Appointment Coordinator. Suffered crush injury 2000; needed renal transplant. Discussed options for care. and son adamant about transfer to [facility] for continued aggressive care/renal care. Patient has been followed at [facility] and [facility] since transplant. states she is DPOA. Requested copy of document. does not want to return to [facility]. would not share concerning any conversations about limitations in care. Understands patient is confused/hallucinating. Plan: Family requests transfer to [facility] for ongoing renal care and continued aggressive care. Full Code. Doyle Crowning Hammer Operator aware of request for transfer. Nhi VAZQUEZ notified Dr. Castillo Hubbard and Dr. Rama Hankins RN will call [facility] transfer. RIC DING Jun 27, 2017 12:58
--- NOTE | 2017-06-27 13:20 | PDOC ---
CARDIO Progress Notes Date and Time Date of Service 06/27/17 Time of Evaluation 1215 Subjective Subjective: No Chest Pain, No Palpitations, Other Vitals Vitals Vital Signs Date Time Temp Pulse Resp B/P (MAP) Pulse Ox O2 Delivery O2 Flow Rate FiO2 06/27/17 11:00 77 24 173/66 (101) 98 Room Air 06/27/17 08:00 98.2 98.2 Weight Weight [ ] Input and Output Intake and Output Intake and Output 06/27/17 07:00 Intake Total 2776 ml Output Total 1144 ml Balance 1632 ml IV Total 750 ml Tube Feeding 1276 ml Other 750 ml Output Urine Total 1044 ml Stool Total 100 ml Gastric Drainage Total 0 ml # Voids 1 Laboratory Labs Laboratory Tests Test 06/26/17 20:40 06/27/17 06:11 06/27/17 07:35 06/27/17 08:43 Glucose (Fingerstick) 116 mg/dL (70-99) 79 mg/dL (70-99) 75 mg/dL (70-99) White Blood Count 8.2 x10^3/uL (4.0-11.0) Red Blood Count 2.90 x10^6/uL (4.30-5.70) Hemoglobin 9.2 g/dL (13.0-17.5) Hematocrit 28.7 % (39.0-53.0) Mean Corpuscular Volume 99 fL (79-100) Mean Corpuscular Hemoglobin 32 pg (25-35) Mean Corpuscular Hemoglobin Concent 32 g/dL (31-37) Red Cell Distribution Width 21.0 % (11.5-14.5) Platelet Count 172 x10^3/uL (140-400) Neutrophils (%) (Auto) 78 % (31-73) Lymphocytes (%) (Auto) 11 % (24-48) Monocytes (%) (Auto) 10 % (0-9) Eosinophils (%) (Auto) 1 % (0-3) Basophils (%) (Auto) 1 % (0-3) Neutrophils # (Auto) 6.4 x10^3uL (1.8-7.7) Lymphocytes # (Auto) 0.9 x10^3/uL (1.0-4.8) Monocytes # (Auto) 0.8 x10^3/uL (0.0-1.1) Eosinophils # (Auto) 0.0 x10^3/uL (0.0-0.7) Basophils # (Auto) 0.1 x10^3/uL (0.0-0.2) Sodium Level 147 mmol/L (136-145) Potassium Level 3.8 mmol/L (3.5-5.1) Chloride Level 108 mmol/L (98-107) Carbon Dioxide Level 30 mmol/L (21-32) Anion Gap 9 (6-14) Blood Urea Nitrogen 25 mg/dL (8-26) Creatinine 2.4 mg/dL (0.7-1.3) Estimated GFR (Cockcroft-Gault) 26.6 BUN/Creatinine Ratio 10 (6-20) Glucose Level 84 mg/dL (70-99) Calcium Level 8.4 mg/dL (8.5-10.1) Phosphorus Level 2.9 mg/dL (2.6-4.7) Magnesium Level 1.9 mg/dL (1.8-2.4) Total Bilirubin 0.6 mg/dL (0.2-1.0) Aspartate Amino Transf (AST/SGOT) 18 U/L (15-37) Alanine Aminotransferase (ALT/SGPT) 12 U/L (16-63) Alkaline Phosphatase 77 U/L (46-116) Total Protein 5.5 g/dL (6.4-8.2) Albumin 2.5 g/dL (3.4-5.0) Albumin/Globulin Ratio 0.8 (1.0-1.7) Test 06/27/17 09:39 Glucose (Fingerstick) 71 mg/dL (70-99) Physical Exam HEENT: Neck Supple W Full Motion Chest: Symmetric LUNGS: Other (bibasilar crackles ) Heart: S1S2, irregularly irregular (AFIB) Abdomen: Soft N/T, Other (obese) Extremities: No Calf Tenderness Neurology: alert, follow commands, confused Assessment Assessment 1. Acute on chronic respiratory failure: in mild distress this am. Pulmonary following 2. Acute on chronic diastolic CHF: LVEF 55%. CXR with vascular congestion. Unable to diuresis with REJI 3. REJI on CKD: Cr worsening. Oliguria; scant output overnight. IV fluids started. per nephrology 4. s/p Renal transplant with chronic immunosuppression 5. Chronic AFIB/LBBB: remains rate controlled 6. Moderate pulmonary HTN; PAP 52 7. Metabolic/hypoxic encephalopathy 8. HTN: controlled 9. DM2/HLP 10. Moderate AI Recommendations Unable to to diuresis secondary to worsening RF. No meaningful output over last 24-hrs Monitor closely for worsening vascular congestion Supportive care Palliative care consulted to addresses goals of care SONJA MINAYA APRN Jun 27, 2017 13:20
--- NOTE | 2017-06-27 14:22 | PDOC ---
PULMONARY PROGRESS NOTES Subjective EXTUBATED 06/25 SOME DISTRESS TODAY Vitals Vital Signs Date Time Temp Pulse Resp B/P (MAP) Pulse Ox O2 Delivery O2 Flow Rate FiO2 06/27/17 11:00 77 24 173/66 (101) 98 Room Air 06/27/17 08:00 98.2 98.2 ROS: No Nausea, No Chest Pain, No Abdominal Pain, No Increase Cough General: Alert Lungs: Crackles Cardiovascular: S1 Abdomen: Soft, Other (obese) Neuro Exam: Alert Extremities: Other (right lymphedema, left BKA) Skin: Warm Labs Laboratory Tests Test 06/25/17 20:46 06/26/17 05:55 06/26/17 12:00 06/26/17 20:40 Glucose (Fingerstick) 79 mg/dL (70-99) 116 mg/dL (70-99) White Blood Count 5.8 x10^3/uL (4.0-11.0) Red Blood Count 2.68 x10^6/uL (4.30-5.70) Hemoglobin 8.5 g/dL (13.0-17.5) Hematocrit 26.4 % (39.0-53.0) Mean Corpuscular Volume 99 fL (79-100) Mean Corpuscular Hemoglobin 32 pg (25-35) Mean Corpuscular Hemoglobin Concent 32 g/dL (31-37) Red Cell Distribution Width 21.4 % (11.5-14.5) Platelet Count 147 x10^3/uL (140-400) Neutrophils (%) (Auto) 77 % (31-73) Lymphocytes (%) (Auto) 12 % (24-48) Monocytes (%) (Auto) 10 % (0-9) Eosinophils (%) (Auto) 1 % (0-3) Basophils (%) (Auto) 0 % (0-3) Neutrophils # (Auto) 4.4 x10^3uL (1.8-7.7) Lymphocytes # (Auto) 0.7 x10^3/uL (1.0-4.8) Monocytes # (Auto) 0.6 x10^3/uL (0.0-1.1) Eosinophils # (Auto) 0.0 x10^3/uL (0.0-0.7) Basophils # (Auto) 0.0 x10^3/uL (0.0-0.2) Sodium Level 149 mmol/L (136-145) 149 mmol/L (136-145) Potassium Level 3.7 mmol/L (3.5-5.1) 3.7 mmol/L (3.5-5.1) Chloride Level 109 mmol/L (98-107) 110 mmol/L (98-107) Carbon Dioxide Level 31 mmol/L (21-32) 32 mmol/L (21-32) Anion Gap 9 (6-14) 7 (6-14) Blood Urea Nitrogen 22 mg/dL (8-26) 22 mg/dL (8-26) Creatinine 2.1 mg/dL (0.7-1.3) 2.0 mg/dL (0.7-1.3) Estimated GFR (Cockcroft-Gault) 31.0 32.8 BUN/Creatinine Ratio 10 (6-20) Glucose Level 63 mg/dL (70-99) 67 mg/dL (70-99) Calcium Level 8.4 mg/dL (8.5-10.1) 8.8 mg/dL (8.5-10.1) Phosphorus Level 3.1 mg/dL (2.6-4.7) Magnesium Level 2.0 mg/dL (1.8-2.4) Total Bilirubin 0.7 mg/dL (0.2-1.0) Aspartate Amino Transf (AST/SGOT) 17 U/L (15-37) Alanine Aminotransferase (ALT/SGPT) 11 U/L (16-63) Alkaline Phosphatase 65 U/L (46-116) Total Protein 5.5 g/dL (6.4-8.2) Albumin 2.8 g/dL (3.4-5.0) Albumin/Globulin Ratio 1.0 (1.0-1.7) Test 06/27/17 06:11 06/27/17 07:35 06/27/17 08:43 06/27/17 09:39 White Blood Count 8.2 x10^3/uL (4.0-11.0) Red Blood Count 2.90 x10^6/uL (4.30-5.70) Hemoglobin 9.2 g/dL (13.0-17.5) Hematocrit 28.7 % (39.0-53.0) Mean Corpuscular Volume 99 fL (79-100) Mean Corpuscular Hemoglobin 32 pg (25-35) Mean Corpuscular Hemoglobin Concent 32 g/dL (31-37) Red Cell Distribution Width 21.0 % (11.5-14.5) Platelet Count 172 x10^3/uL (140-400) Neutrophils (%) (Auto) 78 % (31-73) Lymphocytes (%) (Auto) 11 % (24-48) Monocytes (%) (Auto) 10 % (0-9) Eosinophils (%) (Auto) 1 % (0-3) Basophils (%) (Auto) 1 % (0-3) Neutrophils # (Auto) 6.4 x10^3uL (1.8-7.7) Lymphocytes # (Auto) 0.9 x10^3/uL (1.0-4.8) Monocytes # (Auto) 0.8 x10^3/uL (0.0-1.1) Eosinophils # (Auto) 0.0 x10^3/uL (0.0-0.7) Basophils # (Auto) 0.1 x10^3/uL (0.0-0.2) Sodium Level 147 mmol/L (136-145) Potassium Level 3.8 mmol/L (3.5-5.1) Chloride Level 108 mmol/L (98-107) Carbon Dioxide Level 30 mmol/L (21-32) Anion Gap 9 (6-14) Blood Urea Nitrogen 25 mg/dL (8-26) Creatinine 2.4 mg/dL (0.7-1.3) Estimated GFR (Cockcroft-Gault) 26.6 BUN/Creatinine Ratio 10 (6-20) Glucose Level 84 mg/dL (70-99) Calcium Level 8.4 mg/dL (8.5-10.1) Phosphorus Level 2.9 mg/dL (2.6-4.7) Magnesium Level 1.9 mg/dL (1.8-2.4) Total Bilirubin 0.6 mg/dL (0.2-1.0) Aspartate Amino Transf (AST/SGOT) 18 U/L (15-37) Alanine Aminotransferase (ALT/SGPT) 12 U/L (16-63) Alkaline Phosphatase 77 U/L (46-116) Total Protein 5.5 g/dL (6.4-8.2) Albumin 2.5 g/dL (3.4-5.0) Albumin/Globulin Ratio 0.8 (1.0-1.7) Glucose (Fingerstick) 79 mg/dL (70-99) 75 mg/dL (70-99) 71 mg/dL (70-99) Laboratory Tests Test 06/26/17 20:40 06/27/17 06:11 06/27/17 07:35 06/27/17 08:43 Glucose (Fingerstick) 116 mg/dL (70-99) 79 mg/dL (70-99) 75 mg/dL (70-99) White Blood Count 8.2 x10^3/uL (4.0-11.0) Red Blood Count 2.90 x10^6/uL (4.30-5.70) Hemoglobin 9.2 g/dL (13.0-17.5) Hematocrit 28.7 % (39.0-53.0) Mean Corpuscular Volume 99 fL (79-100) Mean Corpuscular Hemoglobin 32 pg (25-35) Mean Corpuscular Hemoglobin Concent 32 g/dL (31-37) Red Cell Distribution Width 21.0 % (11.5-14.5) Platelet Count 172 x10^3/uL (140-400) Neutrophils (%) (Auto) 78 % (31-73) Lymphocytes (%) (Auto) 11 % (24-48) Monocytes (%) (Auto) 10 % (0-9) Eosinophils (%) (Auto) 1 % (0-3) Basophils (%) (Auto) 1 % (0-3) Neutrophils # (Auto) 6.4 x10^3uL (1.8-7.7) Lymphocytes # (Auto) 0.9 x10^3/uL (1.0-4.8) Monocytes # (Auto) 0.8 x10^3/uL (0.0-1.1) Eosinophils # (Auto) 0.0 x10^3/uL (0.0-0.7) Basophils # (Auto) 0.1 x10^3/uL (0.0-0.2) Sodium Level 147 mmol/L (136-145) Potassium Level 3.8 mmol/L (3.5-5.1) Chloride Level 108 mmol/L (98-107) Carbon Dioxide Level 30 mmol/L (21-32) Anion Gap 9 (6-14) Blood Urea Nitrogen 25 mg/dL (8-26) Creatinine 2.4 mg/dL (0.7-1.3) Estimated GFR (Cockcroft-Gault) 26.6 BUN/Creatinine Ratio 10 (6-20) Glucose Level 84 mg/dL (70-99) Calcium Level 8.4 mg/dL (8.5-10.1) Phosphorus Level 2.9 mg/dL (2.6-4.7) Magnesium Level 1.9 mg/dL (1.8-2.4) Total Bilirubin 0.6 mg/dL (0.2-1.0) Aspartate Amino Transf (AST/SGOT) 18 U/L (15-37) Alanine Aminotransferase (ALT/SGPT) 12 U/L (16-63) Alkaline Phosphatase 77 U/L (46-116) Total Protein 5.5 g/dL (6.4-8.2) Albumin 2.5 g/dL (3.4-5.0) Albumin/Globulin Ratio 0.8 (1.0-1.7) Test 06/27/17 09:39 Glucose (Fingerstick) 71 mg/dL (70-99) Medications Active Scripts Medications Dose Route/Sig Max Daily Dose Days Date Category Amlodipine Besylate 5 Mg Tablet 10 Mg PO DAILY 06/22/17 Reported Azathioprine 50 Mg Tablet 4 Tab PO DAILY 06/22/17 Reported Docusate Sodium 100 Mg Capsule 1 Cap PO TID PRN PRN 06/22/17 Reported Ferrous Sulfate 325 Mg Tablet 1 Tab PO BIDAC 06/22/17 Reported Ondansetron Hcl 4 Mg Tablet 1 Tab PO PRN Q8HRS PRN 06/22/17 Reported Prednisone 10 Mg Tablet 5 Mg PO DAILY 06/22/17 Reported Thiamine Hcl 100 Mg Tablet 100 Mg PO 06/22/17 Reported Nystatin-Triamcinolone Cream (Nystatin/Triamcin) 15 Gm Cream..g. 1 Alexis TP BID 06/22/17 Reported Pantoprazole Sodium 40 Mg Tablet.dr 1 Tab PO DAILY 06/22/17 Reported Tacrolimus 0.5 Mg Capsule 0.5 Mg PO DAILY 06/22/17 Reported Tylenol (Acetaminophen) 325 Mg Tablet 1 Tab PO PRN Q6HRS PRN 06/22/17 Reported Haloperidol 0.5 Mg Tablet 0.25 Mg PO PRN Q8HRS PRN 06/22/17 Reported Metoprolol Tartrate 50 Mg Tablet 3 Tab PO BID 06/22/17 Reported Keflex (Cephalexin) 500 Mg Capsule 500 Mg PO QID 5 06/30/15 Rx Novolog Flexpen (Insulin Aspart) 100 Unit/1 Ml Insuln.pen 22 Unit SQ AC SUPPER 06/26/15 Reported Novolog Flexpen (Insulin Aspart) 100 Unit/1 Ml Insuln.pen 18 Unit SQ AC LUNCH 06/26/15 Reported Novolog Flexpen (Insulin Aspart) 100 Unit/1 Ml Insuln.pen 10 Unit SQ AC BREAKFAST 06/26/15 Reported Levothyroxine Sodium 88 Mcg Tablet 1 Tab PO DAILY 06/24/15 Reported Atorvastatin Calcium 10 Mg Tablet 1 Tab PO DAILY 06/24/15 Reported Loratadine 10 Mg Tablet 1 Tab PO DAILY 06/24/15 Reported Hydrochlorothiazide Tablet (Hydrochlorothiazide) 25 Mg Tablet 25 Mg PO DAILY 06/24/15 Reported Pepcid Ac (Famotidine) 20 Mg Tablet 20 Mg PO HS 06/24/15 Reported Tacrolimus 1 Mg Capsule 1 Mg PO BID 06/24/15 Reported Men's Multivitamin Gummies (Folic Acid/Multivit-Minerals) 200 Mcg Tab.chew 200 Mcg PO 06/24/15 Reported Aspirin 81 Mg Tab.chew 1 Tab PO DAILY 06/24/15 Reported Lantus (Insulin Glargine,Hum.rec.anlog) 100 Unit/1 Ml Vial 70 Unit SQ QHS 06/24/15 Reported Alendronate Sodium 70 Mg Tablet 70 Mg PO WEEKLY 06/24/15 Reported Impression . 1. Acute hypercapnic respiratory failure secondary to multifactorial in nature 2. Abnormal ct chest with moderate effusions/ some aspirated gastro graffin 3. Renal transplant and acute kidney injury. NOW NO URINARY OUTPT FOR PAST APPROX LAST 24 HOURS 4. Methicillin-resistant Staphylococcus aureus infection. 5. Hypernatremia 6. Severe protein-calorie malnutrition POA 7. Morbid obesity 8. Suspect [facility] 9. Acute/Chronic Cor Pulmonale 10. Chronic Lower Ext Lymphedema CT Impression: 1. Moderate bilateral pleural effusions with passive atelectasis of the adjacent lung parenchymal. Underlying pneumonia not ruled out. 2. No interlobular septal thickening in the aerated lungs to suggest pulmonary edema. 3. Nodular high attenuation in the bilateral lower lobes may represent parenchymal calcifications or aspirated oral contrast from previous studies. Plan . EXTUBATE SEVERAL DAYS AGO NOT IMPROVING NO URINARY OUTPUT FOR SOME TIME D/W DR GALAVIZ BOTH HE AND I THINK HE IS NOT CANDIDATE FOR AGGRESSIVE CARE, I WOULD RECOMMEND HOSPICE PALLIATIVE CARE TO TALK TO FAMILY, I SPOKE WITH PT AND INFORMED HIM OF MY OPTION HE HAS BEEN IN HOSPITAL FOR OVE 3 MONTHS, CHANGE OF RETURNING TO NORMAL ACTIVITY FOR HIM IS SLIM TO NONE SPOKE WITH RN CCT 35 MINUTES SHARATH VALLE MD Jun 27, 2017 14:22
[2017-06-27] MEDS ORDERED: WARFARIN 4 MG TABLET. PO SCH (16:00)
--- NOTE | 2017-06-27 17:33 | PDOC ---
PROGRESS NOTES Chief Complaint Chief Complaint Acute hypercarbic, hypoxic respiratory failure ASSESSMENT AND PLAN: 1. CHF exacerbation: no previous hx, poss driven by afib. echo on 06/22 with normal EF, pAP 52. CT with bilat effusions, suspected aspir PNA. on 3liters nc 2. Afib: rate controlled. cardiology following. apparently, family unaware of existing hx; per cardiology, pt has declined OAC in past 3. Aspir PNA: bilat with PO contrast in lower lungs. on broad spectrum Abx 4. Anemia: significant drop of 2+g since admit, now stable ~8.5. no obvious sign of massive bleeding. both urine and respir secretions pink. check OB stool poss chronic anemia (renal insufficiency, inflammation) with initial intravascular contraction 5. REJI on CKD3: s/p renal transplant. sl creat bump 2/2 vasomotor etiologies. essentially stable. nephrology following 6. Immunocompromise: on mult immunosuppressants post renal transplant 7. HTN: borderline control on BB. BEATA-I/ARB is ok by nephrology 8. DM2: currently tight control with home levemir dose. decrease some monitor with ISS 9. BEVERLY: on CPAP at home, not in SNF over past 2 weeks 10. Nutrition: NG 11. Prophylaxis: H2B, lovenox 12. MOD AI and pulmonary hypertension 13. severe lymphedema and dermatitis right leg 14. hypoxic respiratory failure requiring mechanical intubation 15. pulmonary edema 16. intravascular volume depletion, try fluid bolus, flushes q 4 grs PLAN ATTEMPTING TRANSFER TO [facility], D/W TRANSFER TEAM 105 MIN SPENT IN CC TRANSFER TIME TODAY History of Present Illness History of Present Illness awake, following commands, CONFUSED TO DETAILS Vitals Vitals Vital Signs Date Time Temp Pulse Resp B/P (MAP) Pulse Ox O2 Delivery O2 Flow Rate FiO2 06/27/17 17:00 85 23 172/78 (109) 97 Room Air 06/27/17 16:00 98.8 98.8 Physical Exam Physical Exam Physical Exam General: Alert, No acute distress oral mucosa dry Heart: Other (AFIB rate controlled; distant heart sounds) Lungs: Clear (ant) Abdomen: Soft, Other (obese), nontender Extremities: Other ( 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 3 plus pitting edema Skin: Other (chronic venous stasis changes) General: Alert, No acute distress Heart: Other (AFIB rate controlled; distant heart sounds) Lungs: Crackles Abdomen: Soft, Other (obese) Extremities: Other ( s/p L AKA) Skin: Other (chronic venous stasis changes) Labs LABS Laboratory Tests Test 06/26/17 20:40 06/27/17 06:11 06/27/17 07:35 06/27/17 08:43 Glucose (Fingerstick) 116 mg/dL (70-99) 79 mg/dL (70-99) 75 mg/dL (70-99) White Blood Count 8.2 x10^3/uL (4.0-11.0) Red Blood Count 2.90 x10^6/uL (4.30-5.70) Hemoglobin 9.2 g/dL (13.0-17.5) Hematocrit 28.7 % (39.0-53.0) Mean Corpuscular Volume 99 fL (79-100) Mean Corpuscular Hemoglobin 32 pg (25-35) Mean Corpuscular Hemoglobin Concent 32 g/dL (31-37) Red Cell Distribution Width 21.0 % (11.5-14.5) Platelet Count 172 x10^3/uL (140-400) Neutrophils (%) (Auto) 78 % (31-73) Lymphocytes (%) (Auto) 11 % (24-48) Monocytes (%) (Auto) 10 % (0-9) Eosinophils (%) (Auto) 1 % (0-3) Basophils (%) (Auto) 1 % (0-3) Neutrophils # (Auto) 6.4 x10^3uL (1.8-7.7) Lymphocytes # (Auto) 0.9 x10^3/uL (1.0-4.8) Monocytes # (Auto) 0.8 x10^3/uL (0.0-1.1) Eosinophils # (Auto) 0.0 x10^3/uL (0.0-0.7) Basophils # (Auto) 0.1 x10^3/uL (0.0-0.2) Sodium Level 147 mmol/L (136-145) Potassium Level 3.8 mmol/L (3.5-5.1) Chloride Level 108 mmol/L (98-107) Carbon Dioxide Level 30 mmol/L (21-32) Anion Gap 9 (6-14) Blood Urea Nitrogen 25 mg/dL (8-26) Creatinine 2.4 mg/dL (0.7-1.3) Estimated GFR (Cockcroft-Gault) 26.6 BUN/Creatinine Ratio 10 (6-20) Glucose Level 84 mg/dL (70-99) Calcium Level 8.4 mg/dL (8.5-10.1) Phosphorus Level 2.9 mg/dL (2.6-4.7) Magnesium Level 1.9 mg/dL (1.8-2.4) Total Bilirubin 0.6 mg/dL (0.2-1.0) Aspartate Amino Transf (AST/SGOT) 18 U/L (15-37) Alanine Aminotransferase (ALT/SGPT) 12 U/L (16-63) Alkaline Phosphatase 77 U/L (46-116) Total Protein 5.5 g/dL (6.4-8.2) Albumin 2.5 g/dL (3.4-5.0) Albumin/Globulin Ratio 0.8 (1.0-1.7) Test 06/27/17 09:39 Glucose (Fingerstick) 71 mg/dL (70-99) Assessment and Plan Assessmemt and Plan Problems Medical Problems: (1) Acute encephalopathy Status: Acute (2) Pulmonary edema Status: Acute (3) Respiratory acidosis Status: Acute ATTEMPTING TRANSFER TO [facility] Problems: Comment Review of Relevant I have reviewed the following items buzz (where applicable) has been applied. Labs Laboratory Tests Test 06/25/17 20:46 06/26/17 05:55 06/26/17 12:00 06/26/17 20:40 Glucose (Fingerstick) 79 mg/dL (70-99) 116 mg/dL (70-99) White Blood Count 5.8 x10^3/uL (4.0-11.0) Red Blood Count 2.68 x10^6/uL (4.30-5.70) Hemoglobin 8.5 g/dL (13.0-17.5) Hematocrit 26.4 % (39.0-53.0) Mean Corpuscular Volume 99 fL (79-100) Mean Corpuscular Hemoglobin 32 pg (25-35) Mean Corpuscular Hemoglobin Concent 32 g/dL (31-37) Red Cell Distribution Width 21.4 % (11.5-14.5) Platelet Count 147 x10^3/uL (140-400) Neutrophils (%) (Auto) 77 % (31-73) Lymphocytes (%) (Auto) 12 % (24-48) Monocytes (%) (Auto) 10 % (0-9) Eosinophils (%) (Auto) 1 % (0-3) Basophils (%) (Auto) 0 % (0-3) Neutrophils # (Auto) 4.4 x10^3uL (1.8-7.7) Lymphocytes # (Auto) 0.7 x10^3/uL (1.0-4.8) Monocytes # (Auto) 0.6 x10^3/uL (0.0-1.1) Eosinophils # (Auto) 0.0 x10^3/uL (0.0-0.7) Basophils # (Auto) 0.0 x10^3/uL (0.0-0.2) Sodium Level 149 mmol/L (136-145) 149 mmol/L (136-145) Potassium Level 3.7 mmol/L (3.5-5.1) 3.7 mmol/L (3.5-5.1) Chloride Level 109 mmol/L (98-107) 110 mmol/L (98-107) Carbon Dioxide Level 31 mmol/L (21-32) 32 mmol/L (21-32) Anion Gap 9 (6-14) 7 (6-14) Blood Urea Nitrogen 22 mg/dL (8-26) 22 mg/dL (8-26) Creatinine 2.1 mg/dL (0.7-1.3) 2.0 mg/dL (0.7-1.3) Estimated GFR (Cockcroft-Gault) 31.0 32.8 BUN/Creatinine Ratio 10 (6-20) Glucose Level 63 mg/dL (70-99) 67 mg/dL (70-99) Calcium Level 8.4 mg/dL (8.5-10.1) 8.8 mg/dL (8.5-10.1) Phosphorus Level 3.1 mg/dL (2.6-4.7) Magnesium Level 2.0 mg/dL (1.8-2.4) Total Bilirubin 0.7 mg/dL (0.2-1.0) Aspartate Amino Transf (AST/SGOT) 17 U/L (15-37) Alanine Aminotransferase (ALT/SGPT) 11 U/L (16-63) Alkaline Phosphatase 65 U/L (46-116) Total Protein 5.5 g/dL (6.4-8.2) Albumin 2.8 g/dL (3.4-5.0) Albumin/Globulin Ratio 1.0 (1.0-1.7) Test 06/27/17 06:11 06/27/17 07:35 06/27/17 08:43 06/27/17 09:39 White Blood Count 8.2 x10^3/uL (4.0-11.0) Red Blood Count 2.90 x10^6/uL (4.30-5.70) Hemoglobin 9.2 g/dL (13.0-17.5) Hematocrit 28.7 % (39.0-53.0) Mean Corpuscular Volume 99 fL (79-100) Mean Corpuscular Hemoglobin 32 pg (25-35) Mean Corpuscular Hemoglobin Concent 32 g/dL (31-37) Red Cell Distribution Width 21.0 % (11.5-14.5) Platelet Count 172 x10^3/uL (140-400) Neutrophils (%) (Auto) 78 % (31-73) Lymphocytes (%) (Auto) 11 % (24-48) Monocytes (%) (Auto) 10 % (0-9) Eosinophils (%) (Auto) 1 % (0-3) Basophils (%) (Auto) 1 % (0-3) Neutrophils # (Auto) 6.4 x10^3uL (1.8-7.7) Lymphocytes # (Auto) 0.9 x10^3/uL (1.0-4.8) Monocytes # (Auto) 0.8 x10^3/uL (0.0-1.1) Eosinophils # (Auto) 0.0 x10^3/uL (0.0-0.7) Basophils # (Auto) 0.1 x10^3/uL (0.0-0.2) Sodium Level 147 mmol/L (136-145) Potassium Level 3.8 mmol/L (3.5-5.1) Chloride Level 108 mmol/L (98-107) Carbon Dioxide Level 30 mmol/L (21-32) Anion Gap 9 (6-14) Blood Urea Nitrogen 25 mg/dL (8-26) Creatinine 2.4 mg/dL (0.7-1.3) Estimated GFR (Cockcroft-Gault) 26.6 BUN/Creatinine Ratio 10 (6-20) Glucose Level 84 mg/dL (70-99) Calcium Level 8.4 mg/dL (8.5-10.1) Phosphorus Level 2.9 mg/dL (2.6-4.7) Magnesium Level 1.9 mg/dL (1.8-2.4) Total Bilirubin 0.6 mg/dL (0.2-1.0) Aspartate Amino Transf (AST/SGOT) 18 U/L (15-37) Alanine Aminotransferase (ALT/SGPT) 12 U/L (16-63) Alkaline Phosphatase 77 U/L (46-116) Total Protein 5.5 g/dL (6.4-8.2) Albumin 2.5 g/dL (3.4-5.0) Albumin/Globulin Ratio 0.8 (1.0-1.7) Glucose (Fingerstick) 79 mg/dL (70-99) 75 mg/dL (70-99) 71 mg/dL (70-99) Laboratory Tests Test 06/26/17 20:40 06/27/17 06:11 06/27/17 07:35 06/27/17 08:43 Glucose (Fingerstick) 116 mg/dL (70-99) 79 mg/dL (70-99) 75 mg/dL (70-99) White Blood Count 8.2 x10^3/uL (4.0-11.0) Red Blood Count 2.90 x10^6/uL (4.30-5.70) Hemoglobin 9.2 g/dL (13.0-17.5) Hematocrit 28.7 % (39.0-53.0) Mean Corpuscular Volume 99 fL (79-100) Mean Corpuscular Hemoglobin 32 pg (25-35) Mean Corpuscular Hemoglobin Concent 32 g/dL (31-37) Red Cell Distribution Width 21.0 % (11.5-14.5) Platelet Count 172 x10^3/uL (140-400) Neutrophils (%) (Auto) 78 % (31-73) Lymphocytes (%) (Auto) 11 % (24-48) Monocytes (%) (Auto) 10 % (0-9) Eosinophils (%) (Auto) 1 % (0-3) Basophils (%) (Auto) 1 % (0-3) Neutrophils # (Auto) 6.4 x10^3uL (1.8-7.7) Lymphocytes # (Auto) 0.9 x10^3/uL (1.0-4.8) Monocytes # (Auto) 0.8 x10^3/uL (0.0-1.1) Eosinophils # (Auto) 0.0 x10^3/uL (0.0-0.7) Basophils # (Auto) 0.1 x10^3/uL (0.0-0.2) Sodium Level 147 mmol/L (136-145) Potassium Level 3.8 mmol/L (3.5-5.1) Chloride Level 108 mmol/L (98-107) Carbon Dioxide Level 30 mmol/L (21-32) Anion Gap 9 (6-14) Blood Urea Nitrogen 25 mg/dL (8-26) Creatinine 2.4 mg/dL (0.7-1.3) Estimated GFR (Cockcroft-Gault) 26.6 BUN/Creatinine Ratio 10 (6-20) Glucose Level 84 mg/dL (70-99) Calcium Level 8.4 mg/dL (8.5-10.1) Phosphorus Level 2.9 mg/dL (2.6-4.7) Magnesium Level 1.9 mg/dL (1.8-2.4) Total Bilirubin 0.6 mg/dL (0.2-1.0) Aspartate Amino Transf (AST/SGOT) 18 U/L (15-37) Alanine Aminotransferase (ALT/SGPT) 12 U/L (16-63) Alkaline Phosphatase 77 U/L (46-116) Total Protein 5.5 g/dL (6.4-8.2) Albumin 2.5 g/dL (3.4-5.0) Albumin/Globulin Ratio 0.8 (1.0-1.7) Test 06/27/17 09:39 Glucose (Fingerstick) 71 mg/dL (70-99) Medications Current Medications Etomidate (Amidate) 20 mg STK-MED ONCE IV ; Start 06/22/17 at 05:47; Stop at 05:48; Status DC Rocuronium Monroe (Zemuron) 50 mg STK-MED ONCE .ROUTE ; Start 06/22/17 at 05:48 ; Stop 06/22/17 at 05:49; Status DC Propofol 50 ml @ As Directed STK-MED ONCE IV ; Start 06/22/17 at 06:15; Stop at 06:16; Status DC Propofol 100 ml @ 0 mls/hr CONT PRN IV SEE I/O RECORD Last administered on 06/25 03:20; Start 06/22/17 at 06:30 Ondansetron HCl (Zofran) 4 mg PRN Q8HRS PRN IV NAUSEA/VOMITING; Start 06/22/17 at 06:45; Stop 06/23/17 at 06:44; Status DC Fentanyl Citrate (Fentanyl 2ml Vial) 50 mcg PRN Q1HR PRN IV PAIN Last administered on 06/22/17 07:04; Start 06/22/17 at 06:45; Stop 06/23/17 at 06:44 ; Status DC Sodium Chloride 1,000 ml @ 75 mls/hr [id number] IV ; Start 06/22/17 at 06:45; Stop 06/22/17 at 19:47; Status DC Acetaminophen (Tylenol) 650 mg PRN Q4HRS PRN PO FEVER; Start 06/22/17 at 06:45 ; Stop 06/23/17 at 06:44; Status DC Midazolam HCl (Versed) 2 mg STK-MED ONCE .ROUTE ; Start 06/22/17 at 07:17; Stop 06/22/17 at 07:18; Status DC Midazolam HCl 100 ml @ 0 mls/hr CONT PRN IV SEE I/O RECORD Last administered on 06/22/17 23:38; Start 06/22/17 at 07:30 Midazolam HCl (Versed) 2 mg 1X ONCE IV Last administered on 06/22/17 07:30; Start 06/22/17 at 07:30; Stop 06/22/17 at 07:31; Status DC Norepinephrine Bitartrate 250 ml @ As Directed STK-MED ONCE IV ; Start at 08:27; Stop 06/22/17 at 08:28; Status DC Norepinephrine Bitartrate 250 ml @ 0 mls/hr CONT PRN IV SEE I/O RECORD Last administered on 06/22/17 13:02; Start 06/22/17 at 08:30 Sodium Chloride 1,000 ml @ 125 mls/hr Q8H IV Last administered on 06/23/17 08 :21; Start 06/22/17 at 11:00; Stop 06/23/17 at 14:28; Status DC Sodium Chloride 1,000 ml @ 999 mls/hr 1X ONCE IV Last administered on 14:32; Start 06/22/17 at 10:45; Stop 06/22/17 at 11:45; Status DC Vancomycin HCl (Vanco Per Pharmacy) 1 each PRN DAILY PRN MC SEE COMMENTS Last administered on 06/26/17 15:34; Start 06/22/17 at 11:00; Stop 06/27/17 at 14:42 ; Status DC Piperacillin Sod/ Tazobactam Sod (Zosyn Per Pharmacy) 1 each PRN DAILY PRN MC SEE COMMENTS; Start 06/22/17 at 11:00; Stop 06/26/17 at 08:38; Status DC Aspirin (Children'S Aspirin) 81 mg DAILY PO Last administered on 06/27/17 10: 52; Start 06/22/17 at 12:00 Atorvastatin Calcium (Lipitor) 10 mg DAILY PO Last administered on 06/27/17 10 :53; Start 06/22/17 at 12:00 Azathioprine (Imuran) 50 mg DAILY PO Last administered on 06/27/17 10:52; Start 06/22/17 at 12:00 Famotidine (Pepcid) 20 mg HS PO Last administered on 06/26/17 20:44; Start at 21:00 Levothyroxine Sodium (Synthroid) 88 mcg DAILYAC PO Last administered on 10:52; Start 06/22/17 at 12:00 Prednisone (Prednisone) 20 mg DAILY PO Last administered on 06/27/17 10:53; Start 06/22/17 at 12:00 Insulin Detemir (Levemir) 70 units QHS SQ ; Start 06/22/17 at 21:00; Stop at 21:10; Status DC Cetirizine HCl (ZyrTEC) 10 mg DAILY PO Last administered on 06/27/17 10:53; Start 06/22/17 at 12:00 Metoprolol Tartrate (Lopressor) 100 mg BID PO ; Start 06/22/17 at 12:00; Stop 06/22/17 at 18:33; Status DC Tacrolimus (Prograf) 1 mg BID PO Last administered on 06/27/17 10:53; Start 06/22/17 at 12:00 Vancomycin HCl 2 gm/Dextrose/ Sodium Chloride 500 ml @ 250 mls/hr 1X ONCE IV Last administered on 06/22/17 13:04; Start 06/22/17 at 11:30; Stop 06/22/17 at 13:29; Status DC Piperacillin Sod/ Tazobactam Sod (Zosyn) 4.5 gm Q6HRS IVP Last administered on 06/27/17 05:51; Start 06/22/17 at 12:00; Stop 06/27/17 at 14:37; Status DC Vancomycin HCl 2 gm/Dextrose/ Sodium Chloride 500 ml @ 250 mls/hr Q24H IV ; Start 06/23/17 at 13:00; Stop 06/23/17 at 13:00; Status DC Vancomycin HCl 1 each 1X ONCE MC Last administered on 06/24/17 12:30; Start 06/24/17 at 12:30; Stop 06/24/17 at 12:31; Status DC Metoprolol Tartrate (Lopressor) 50 mg BID PO Last administered on 06/27/17 10: 53; Start 06/22/17 at 21:00 Albumin Human 200 ml @ 100 mls/hr TID IV Last administered on 06/22/17 20:44 ; Start 06/22/17 at 21:00; Stop 06/23/17 at 02:42; Status DC Insulin Detemir (Levemir) 70 units QHS SQ Last administered on 06/24/17 21:53 ; Start 06/23/17 at 21:00; Stop 06/25/17 at 10:40; Status DC Insulin Detemir (Levemir) 30 units 1X ONCE SQ Last administered on 06/22/17 21:18; Start 06/22/17 at 21:15; Stop 06/22/17 at 21:16; Status DC Albumin Human 200 ml @ 100 mls/hr TID IV ; Start 06/23/17 at 03:00; Stop at 03:00; Status DC Albumin Human 200 ml @ 100 mls/hr Q6HRS IV Last administered on 06/24/17 05: 47; Start 06/23/17 at 06:00; Stop 06/24/17 at 07:59; Status DC Vancomycin HCl 2 gm/Dextrose/ Sodium Chloride 500 ml @ 250 mls/hr Q24H IV Last administered on 06/24/17 14:43; Start 06/23/17 at 13:00; Stop 06/25/17 at 08:36; Status DC Magnesium Sulfate/ Dextrose 50 ml @ 25 mls/hr PRN DAILY PRN IV for Mag < 1.7 on am labs Last administered on 06/25/17 10:43; Start 06/23/17 at 14:30 Fentanyl Citrate (Fentanyl 2ml Vial) 25 mcg PRN Q4HRS PRN IV PAIN Last administered on 06/23/17 18:35; Start 06/23/17 at 15:45 Magnesium Sulfate/ Dextrose 50 ml @ 25 mls/hr 1X ONCE IV Last administered on 06/24/17 06:32; Start 06/24/17 at 06:30; Stop 06/24/17 at 08:29; Status DC Potassium Phosphate 13.6 mmol/Sodium Chloride 104.5333 ml @ 52.267 m... Q2H IV Last administered on 06/24/17 18:07; Start 06/24/17 at 11:00; Stop 06/24/17 at 16:59; Status DC Furosemide (Lasix) 20 mg 1X ONCE IVP Last administered on 06/24/17 12:59; Start 06/24/17 at 11:15; Stop 06/24/17 at 11:16; Status DC Dextrose (Dextrose 50%-Water Syringe) 25 gm STK-MED ONCE IV ; Start 06/25/17 at 05:58; Stop 06/25/17 at 05:59; Status DC Dextrose (Dextrose 50%-Water Syringe) 12.5 gm PRN Q15MIN PRN IV SEE COMMENTS Last administered on 06/27/17 09:49; Start 06/25/17 at 06:15 Chlorhexidine Gluconate (Peridex) 15 ml BID SWSP ; Start 06/25/17 at 21:00; Stop 06/26/17 at 08:42; Status DC Vancomycin HCl 2 gm/Dextrose/ Sodium Chloride 500 ml @ 250 mls/hr Q48H IV Last administered on 06/26/17 13:17; Start 06/26/17 at 13:00; Stop 06/27/17 at 14:37; Status DC Insulin Detemir (Levemir) 55 units QHS SQ Last administered on 06/26/17 20:43 ; Start 06/25/17 at 21:00 Enoxaparin Sodium (Lovenox 40mg Syringe) 40 mg BID SQ Last administered on 06/27 10:52; Start 06/25/17 at 12:00 Nystatin (Nystop) 1 alexis BID TP Last administered on 06/27/17 10:53; Start 06/25/17 at 21:00 Isosorbide Mononitrate (Imdur) 30 mg DAILY PO ; Start 06/26/17 at 09:00 Amino Acids/ Glycerin/ Electrolytes 1,000 ml @ 80 mls/hr [id number] IV ; Start at 09:15; Stop 06/26/17 at 10:44; Status DC Sodium Chloride 500 ml @ 250 mls/hr 1X ONCE IV Last administered on 23:30; Start 06/26/17 at 23:45; Stop 06/27/17 at 01:44; Status DC Sodium Chloride 250 ml @ 250 mls/hr 1X ONCE IV Last administered on 03:00; Start 06/27/17 at 03:15; Stop 06/27/17 at 04:14; Status DC Sodium Chloride 500 ml @ 500 mls/hr 1X ONCE IV Last administered on 08:00; Start 06/27/17 at 08:00; Stop 06/27/17 at 10:39; Status DC Warfarin Sodium (Coumadin) 8 mg DAILY16 PO ; Start 06/27/17 at 16:00; Status Cancel Active Scripts Active Keflex (Cephalexin) 500 Mg Capsule 500 Mg PO QID 5 Days Reported Amlodipine Besylate 5 Mg Tablet 10 Mg PO DAILY Azathioprine 50 Mg Tablet 4 Tab PO DAILY Docusate Sodium 100 Mg Capsule 1 Cap PO TID PRN PRN Ferrous Sulfate 325 Mg Tablet 1 Tab PO BIDAC Ondansetron Hcl 4 Mg Tablet 1 Tab PO PRN Q8HRS PRN Prednisone 10 Mg Tablet 5 Mg PO DAILY Thiamine Hcl 100 Mg Tablet 100 Mg PO Nystatin-Triamcinolone Cream (Nystatin/Triamcin) 15 Gm Cream..g. 1 Alexis TP BID Pantoprazole Sodium 40 Mg Tablet.dr 1 Tab PO DAILY Tacrolimus 0.5 Mg Capsule 0.5 Mg PO DAILY Tylenol (Acetaminophen) 325 Mg Tablet 1 Tab PO PRN Q6HRS PRN Haloperidol 0.5 Mg Tablet 0.25 Mg PO PRN Q8HRS PRN Metoprolol Tartrate 50 Mg Tablet 3 Tab PO BID Novolog Flexpen (Insulin Aspart) 100 Unit/1 Ml Insuln.pen 22 Unit SQ AC SUPPER Novolog Flexpen (Insulin Aspart) 100 Unit/1 Ml Insuln.pen 18 Unit SQ AC LUNCH Novolog Flexpen (Insulin Aspart) 100 Unit/1 Ml Insuln.pen 10 Unit SQ AC BREAKFAST Levothyroxine Sodium 88 Mcg Tablet 1 Tab PO DAILY Atorvastatin Calcium 10 Mg Tablet 1 Tab PO DAILY Loratadine 10 Mg Tablet 1 Tab PO DAILY Hydrochlorothiazide Tablet (Hydrochlorothiazide) 25 Mg Tablet 25 Mg PO DAILY Pepcid Ac (Famotidine) 20 Mg Tablet 20 Mg PO HS Tacrolimus 1 Mg Capsule 1 Mg PO BID Men's Multivitamin Gummies (Folic Acid/Multivit-Minerals) 200 Mcg Tab.chew 200 Mcg PO Aspirin 81 Mg Tab.chew 1 Tab PO DAILY Lantus (Insulin Glargine,Hum.rec.anlog) 100 Unit/1 Ml Vial 70 Unit SQ QHS Alendronate Sodium 70 Mg Tablet 70 Mg PO WEEKLY Vitals/I & O Vital Sign - Last 24 Hours 06/26/17 06/26/17 06/26/17 06/26/17 18:00 19:00 20:00 20:00 Temp 98.5 98.5 Pulse 88 80 80 Resp 26 19 21 B/P (MAP) 179/78 (111) 178/74 (108) 181/65 (103) Pulse Ox 97 97 96 O2 Delivery Room Air Room Air Room Air Room Air 06/26/17 06/26/17 06/26/17 06/26/17 20:44 21:00 22:00 23:00 Pulse 80 76 74 74 Resp 21 25 24 B/P (MAP) 181/53 157/72 (100) 177/75 (109) 171/74 (106) Pulse Ox 97 96 97 O2 Delivery Room Air Room Air Room Air 06/27/17 06/27/17 06/27/17 06/27/17 00:00 00:00 01:00 02:00 Temp 98.5 98.5 Pulse 76 68 68 Resp 22 22 B/P (MAP) 156/76 (102) 166/76 (106) 154/68 (96) Pulse Ox 98 100 99 O2 Delivery Room Air Room Air Room Air Room Air 06/27/17 06/27/17 06/27/17 06/27/17 03:00 04:00 04:00 05:00 Temp 98.1 98.1 Pulse 72 79 77 Resp 20 B/P (MAP) 167/77 (107) 163/77 (105) 174/71 (105) Pulse Ox 99 99 98 O2 Delivery Room Air Room Air Room Air Room Air 06/27/17 06/27/17 06/27/17 06/27/17 06:00 07:00 08:00 08:00 Temp 98.2 98.2 Pulse 83 83 76 Resp 23 23 B/P (MAP) 158/71 (100) 148/69 (95) 150/68 (95) Pulse Ox 99 99 99 O2 Delivery Room Air Room Air Room Air Room Air 06/27/17 06/27/17 06/27/17 06/27/17 09:00 10:00 10:53 11:00 Pulse 80 78 81 77 Resp 24 B/P (MAP) 150/66 (94) 166/73 (104) 166/73 173/66 (101) Pulse Ox 100 98 98 O2 Delivery Room Air Room Air Room Air 06/27/17 06/27/17 06/27/17 06/27/17 12:00 12:00 13:00 14:00 Temp 98.1 98.1 Pulse 72 78 76 Resp 23 28 25 B/P (MAP) 174/74 (107) 168/80 (109) 172/76 (108) Pulse Ox 98 95 94 O2 Delivery Room Air Room Air Room Air Room Air 06/27/17 06/27/17 06/27/17 06/27/17 15:00 16:00 16:00 17:00 Temp 98.8 98.8 Pulse 76 80 85 Resp 25 30 23 B/P (MAP) 172/72 (105) 183/77 (112) 172/78 (109) Pulse Ox 97 98 97 O2 Delivery Room Air Room Air Room Air Room Air Intake and Output 06/26/17 06/26/17 06/27/17 15:00 23:00 07:00 Intake Total 300 ml 1150 ml 1326 ml Output Total 700 ml 402 ml 42 ml Balance -400 ml 748 ml 1284 ml Nutrition Consultation Dietary Evaluation: Recommendations by RD: Increase Calorie Intake, Add supplement feedings Comments: Diabetisource AC@goal rate 75 ml/hr w/200 ml water flushes q4 hrs or flushes per MD Expected Outcomes/Goals: TF tolerated at goal rate and providing > 60% est needs - met at times, ongoing Interpretation of weight loss: >7.5% in 3 months Malnutrition Findings: Food and Nutrition Intake (Mod: <75% est energy req 7days Malnutrition related to morbid: BMI>or equal to 40 Malnutrition related to morbid: Yes Weight Status: Morbidly Obese ÁLVARO BELTRAN MD Jun 27, 2017 17:33
--- NOTE | 2017-06-27 17:48 | PDOC3 ---
Discharge Summary Date of Admission: Jun 25, 2017 Date of Discharge: Jun 27, 2017 FINAL DIAGNOSIS Problems Medical Problems: (1) Acute encephalopathy Status: Acute (2) Pulmonary edema Status: Acute (3) Respiratory acidosis Status: Acute ASSESSMENT AND PLAN: 1. CHF exacerbation: no previous hx, poss driven by afib. echo on 06/22 with normal EF, pAP 52. CT with bilat effusions, suspected aspir PNA. on 3liters nc 2. Afib: rate controlled. cardiology following. apparently, family unaware of existing hx; per cardiology, pt has declined OAC in past 3. Aspir PNA: bilat with PO contrast in lower lungs. on broad spectrum Abx 4. Anemia: significant drop of 2+g since admit, now stable ~8.5. no obvious sign of massive bleeding. both urine and respir secretions pink. check OB stool poss chronic anemia (renal insufficiency, inflammation) with initial intravascular contraction 5. REJI on CKD3: s/p renal transplant. sl creat bump 2/2 vasomotor etiologies. essentially stable. nephrology following 6. Immunocompromise: on mult immunosuppressants post renal transplant 7. HTN: borderline control on BB. BEATA-I/ARB is ok by nephrology 8. DM2: currently tight control with home levemir dose. decrease some monitor with ISS 9. BEVERLY: on CPAP at home, not in SNF over past 2 weeks 10. Nutrition: NG 11. Prophylaxis: H2B, lovenox 12. MOD AI and pulmonary hypertension 13. severe lymphedema and dermatitis right leg 14. hypoxic respiratory failure requiring mechanical intubation 15. pulmonary edema 16. intravascular volume depletion, try fluid bolus, flushes q 4 grs PLAN ATTEMPTING TRANSFER TO [facility], D/W TRANSFER TEAM 105 MIN SPENT IN CC TRANSFER TIME TODAY History of Present Illness History of Present Illness awake, following commands, CONFUSED TO DETAILS Vitals Vitals Vital Signs Date Time Temp Pulse Resp B/P (MAP) Pulse Ox O2 Delivery O2 Flow Rate FiO2 06/27/17 17:00 85 23 172/78 (109) 97 Room Air 06/27/17 16:00 98.8 98.8 Physical Exam Physical Exam Physical Exam General: Alert, No acute distress oral mucosa dry Heart: Other (AFIB rate controlled; distant heart sounds) Lungs: Clear (ant) Abdomen: Soft, Other (obese), nontender Extremities: Other ( 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 3 plus pitting edema Skin: Other (chronic venous stasis changes) General: Alert, No acute distress Heart: Other (AFIB rate controlled; distant heart sounds) Lungs: Crackles Abdomen: Soft, Other (obese) Extremities: Other ( s/p L AKA) Skin: Other (chronic venous stasis changes) Labs LABS Laboratory Tests Test 06/26/17 20:40 06/27/17 06:11 06/27/17 07:35 06/27/17 08:43 Glucose (Fingerstick) 116 mg/dL (70-99) 79 mg/dL (70-99) 75 mg/dL (70-99) White Blood Count 8.2 x10^3/uL (4.0-11.0) Red Blood Count 2.90 x10^6/uL (4.30-5.70) Hemoglobin 9.2 g/dL (13.0-17.5) Hematocrit 28.7 % (39.0-53.0) Mean Corpuscular Volume 99 fL (79-100) Mean Corpuscular Hemoglobin 32 pg (25-35) Mean Corpuscular Hemoglobin Concent 32 g/dL (31-37) Red Cell Distribution Width 21.0 % (11.5-14.5) Platelet Count 172 x10^3/uL (140-400) Neutrophils (%) (Auto) 78 % (31-73) Lymphocytes (%) (Auto) 11 % (24-48) Monocytes (%) (Auto) 10 % (0-9) Eosinophils (%) (Auto) 1 % (0-3) Basophils (%) (Auto) 1 % (0-3) Neutrophils # (Auto) 6.4 x10^3uL (1.8-7.7) Lymphocytes # (Auto) 0.9 x10^3/uL (1.0-4.8) Monocytes # (Auto) 0.8 x10^3/uL (0.0-1.1) Eosinophils # (Auto) 0.0 x10^3/uL (0.0-0.7) Basophils # (Auto) 0.1 x10^3/uL (0.0-0.2) Sodium Level 147 mmol/L (136-145) Potassium Level 3.8 mmol/L (3.5-5.1) Chloride Level 108 mmol/L (98-107) Carbon Dioxide Level 30 mmol/L (21-32) Anion Gap 9 (6-14) Blood Urea Nitrogen 25 mg/dL (8-26) Creatinine 2.4 mg/dL (0.7-1.3) Estimated GFR (Cockcroft-Gault) 26.6 BUN/Creatinine Ratio 10 (6-20) Glucose Level 84 mg/dL (70-99) Calcium Level 8.4 mg/dL (8.5-10.1) Phosphorus Level 2.9 mg/dL (2.6-4.7) Magnesium Level 1.9 mg/dL (1.8-2.4) Total Bilirubin 0.6 mg/dL (0.2-1.0) Aspartate Amino Transf (AST/SGOT) 18 U/L (15-37) Alanine Aminotransferase (ALT/SGPT) 12 U/L (16-63) Alkaline Phosphatase 77 U/L (46-116) Total Protein 5.5 g/dL (6.4-8.2) Albumin 2.5 g/dL (3.4-5.0) Albumin/Globulin Ratio 0.8 (1.0-1.7) Test 06/27/17 09:39 Glucose (Fingerstick) 71 mg/dL (70-99) Assessment and Plan AssessmeNT and Plan TO [facility], PROCESS PENDING TOTAL TIME 105 MIN Brief Hospital Course Mr. Palma is a 72 old [sex] who presented with [ ] Discharge Medications Current Medications Etomidate (Amidate) 20 mg STK-MED ONCE IV ; Start 06/22/17 at 05:47; Stop at 05:48; Status DC Rocuronium [place] (Zemuron) 50 mg STK-MED ONCE .ROUTE ; Start 06/22/17 at 05:48 ; Stop 06/22/17 at 05:49; Status DC Propofol 50 ml @ As Directed STK-MED ONCE IV ; Start 06/22/17 at 06:15; Stop at 06:16; Status DC Propofol 100 ml @ 0 mls/hr CONT PRN IV SEE I/O RECORD Last administered on 06/25t 03:20; Start 06/22/17 at 06:30 Ondansetron HCl (Zofran) 4 mg PRN Q8HRS PRN IV NAUSEA/VOMITING; Start 06/22/17 at 06:45; Stop 06/23/17 at 06:44; Status DC Fentanyl Citrate (Fentanyl 2ml Vial) 50 mcg PRN Q1HR PRN IV PAIN Last administered on 06/22/17 07:04; Start 06/22/17 at 06:45; Stop 06/23/17 at 06:44 ; Status DC Sodium Chloride 1,000 ml @ 75 mls/hr [id number] IV ; Start 06/22/17 at 06:45; Stop 06/22/17 at 19:47; Status DC Acetaminophen (Tylenol) 650 mg PRN Q4HRS PRN PO FEVER; Start 06/22/17 at 06:45 ; Stop 06/23/17 at 06:44; Status DC Midazolam HCl (Versed) 2 mg STK-MED ONCE .ROUTE ; Start 06/22/17 at 07:17; Stop 06/22/17 at 07:18; Status DC Midazolam HCl 100 ml @ 0 mls/hr CONT PRN IV SEE I/O RECORD Last administered on 06/22/17 23:38; Start 06/22/17 at 07:30 Midazolam HCl (Versed) 2 mg 1X ONCE IV Last administered on 06/22/17 07:30; Start 06/22/17 at 07:30; Stop 06/22/17 at 07:31; Status DC Norepinephrine Bitartrate 250 ml @ As Directed STK-MED ONCE IV ; Start at 08:27; Stop 06/22/17 at 08:28; Status DC Norepinephrine Bitartrate 250 ml @ 0 mls/hr CONT PRN IV SEE I/O RECORD Last administered on 06/22/17 13:02; Start 06/22/17 at 08:30 Sodium Chloride 1,000 ml @ 125 mls/hr Q8H IV Last administered on 06/23/17 08 :21; Start 06/22/17 at 11:00; Stop 06/23/17 at 14:28; Status DC Sodium Chloride 1,000 ml @ 999 mls/hr 1X ONCE IV Last administered on 14:32; Start 06/22/17 at 10:45; Stop 06/22/17 at 11:45; Status DC Vancomycin HCl (Vanco Per Pharmacy) 1 each PRN DAILY PRN MC SEE COMMENTS Last administered on 06/26/17 15:34; Start 06/22/17 at 11:00; Stop 06/27/17 at 14:42 ; Status DC Piperacillin Sod/ Tazobactam Sod (Zosyn Per Pharmacy) 1 each PRN DAILY PRN MC SEE COMMENTS; Start 06/22/17 at 11:00; Stop 06/26/17 at 08:38; Status DC Aspirin (Children'S Aspirin) 81 mg DAILY PO Last administered on 06/27/17 10: 52; Start 06/22/17 at 12:00 Atorvastatin Calcium (Lipitor) 10 mg DAILY PO Last administered on 06/27/17 10 :53; Start 06/22/17 at 12:00 Azathioprine (Imuran) 50 mg DAILY PO Last administered on 06/27/17 10:52; Start 06/22/17 at 12:00 Famotidine (Pepcid) 20 mg HS PO Last administered on 06/26/17 20:44; Start at 21:00 Levothyroxine Sodium (Synthroid) 88 mcg DAILYAC PO Last administered on 10:52; Start 06/22/17 at 12:00 Prednisone (Prednisone) 20 mg DAILY PO Last administered on 06/27/17 10:53; Start 06/22/17 at 12:00 Insulin Detemir (Levemir) 70 units QHS SQ ; Start 06/22/17 at 21:00; Stop at 21:10; Status DC Cetirizine HCl (ZyrTEC) 10 mg DAILY PO Last administered on 06/27/17 10:53; Start 06/22/17 at 12:00 Metoprolol Tartrate (Lopressor) 100 mg BID PO ; Start 06/22/17 at 12:00; Stop 06/22/17 at 18:33; Status DC Tacrolimus (Prograf) 1 mg BID PO Last administered on 06/27/17 10:53; Start 06/22/17 at 12:00 Vancomycin HCl 2 gm/Dextrose/ Sodium Chloride 500 ml @ 250 mls/hr 1X ONCE IV Last administered on 06/22/17 13:04; Start 06/22/17 at 11:30; Stop 06/22/17 at 13:29; Status DC Piperacillin Sod/ Tazobactam Sod (Zosyn) 4.5 gm Q6HRS IVP Last administered on 06/27/17 05:51; Start 06/22/17 at 12:00; Stop 06/27/17 at 14:37; Status DC Vancomycin HCl 2 gm/Dextrose/ Sodium Chloride 500 ml @ 250 mls/hr Q24H IV ; Start 06/23/17 at 13:00; Stop 06/23/17 at 13:00; Status DC Vancomycin HCl 1 each 1X ONCE MC Last administered on 06/24/17 12:30; Start 06/24/17 at 12:30; Stop 06/24/17 at 12:31; Status DC Metoprolol Tartrate (Lopressor) 50 mg BID PO Last administered on 06/27/17 10: 53; Start 06/22/17 at 21:00 Albumin Human 200 ml @ 100 mls/hr TID IV Last administered on 06/22/17 20:44 ; Start 06/22/17 at 21:00; Stop 06/23/17 at 02:42; Status DC Insulin Detemir (Levemir) 70 units QHS SQ Last administered on 06/24/17 21:53 ; Start 06/23/17 at 21:00; Stop 06/25/17 at 10:40; Status DC Insulin Detemir (Levemir) 30 units 1X ONCE SQ Last administered on 06/22/17 21:18; Start 06/22/17 at 21:15; Stop 06/22/17 at 21:16; Status DC Albumin Human 200 ml @ 100 mls/hr TID IV ; Start 06/23/17 at 03:00; Stop at 03:00; Status DC Albumin Human 200 ml @ 100 mls/hr Q6HRS IV Last administered on 06/24/17 05: 47; Start 06/23/17 at 06:00; Stop 06/24/17 at 07:59; Status DC Vancomycin HCl 2 gm/Dextrose/ Sodium Chloride 500 ml @ 250 mls/hr Q24H IV Last administered on 06/24/17 14:43; Start 06/23/17 at 13:00; Stop 06/25/17 at 08:36; Status DC Magnesium Sulfate/ Dextrose 50 ml @ 25 mls/hr PRN DAILY PRN IV for Mag < 1.7 on am labs Last administered on 06/25/17 10:43; Start 06/23/17 at 14:30 Fentanyl Citrate (Fentanyl 2ml Vial) 25 mcg PRN Q4HRS PRN IV PAIN Last administered on 06/23/17 18:35; Start 06/23/17 at 15:45 Magnesium Sulfate/ Dextrose 50 ml @ 25 mls/hr 1X ONCE IV Last administered on 06/24/17 06:32; Start 06/24/17 at 06:30; Stop 06/24/17 at 08:29; Status DC Potassium Phosphate 13.6 mmol/Sodium Chloride 104.5333 ml @ 52.267 m... Q2H IV Last administered on 06/24/17 18:07; Start 06/24/17 at 11:00; Stop 06/24/17 at 16:59; Status DC Furosemide (Lasix) 20 mg 1X ONCE IVP Last administered on 06/24/17 12:59; Start 06/24/17 at 11:15; Stop 06/24/17 at 11:16; Status DC Dextrose (Dextrose 50%-Water Syringe) 25 gm STK-MED ONCE IV ; Start 06/25/17 at 05:58; Stop 06/25/17 at 05:59; Status DC Dextrose (Dextrose 50%-Water Syringe) 12.5 gm PRN Q15MIN PRN IV SEE COMMENTS Last administered on 06/27/17 09:49; Start 06/25/17 at 06:15 Chlorhexidine Gluconate (Peridex) 15 ml BID SWSP ; Start 06/25/17 at 21:00; Stop 06/26/17 at 08:42; Status DC Vancomycin HCl 2 gm/Dextrose/ Sodium Chloride 500 ml @ 250 mls/hr Q48H IV Last administered on 06/26/17 13:17; Start 06/26/17 at 13:00; Stop 06/27/17 at 14:37; Status DC Insulin Detemir (Levemir) 55 units QHS SQ Last administered on 06/26/17 20:43 ; Start 06/25/17 at 21:00 Enoxaparin Sodium (Lovenox 40mg Syringe) 40 mg BID SQ Last administered on 06/27 10:52; Start 06/25/17 at 12:00 Nystatin (Nystop) 1 alexis BID TP Last administered on 06/27/17 10:53; Start 06/25/17 at 21:00 Isosorbide Mononitrate (Imdur) 30 mg DAILY PO ; Start 06/26/17 at 09:00 Amino Acids/ Glycerin/ Electrolytes 1,000 ml @ 80 mls/hr [id number] IV ; Start at 09:15; Stop 06/26/17 at 10:44; Status DC Sodium Chloride 500 ml @ 250 mls/hr 1X ONCE IV Last administered on 23:30; Start 06/26/17 at 23:45; Stop 06/27/17 at 01:44; Status DC Sodium Chloride 250 ml @ 250 mls/hr 1X ONCE IV Last administered on 03:00; Start 06/27/17 at 03:15; Stop 06/27/17 at 04:14; Status DC Sodium Chloride 500 ml @ 500 mls/hr 1X ONCE IV Last administered on 08:00; Start 06/27/17 at 08:00; Stop 06/27/17 at 10:39; Status DC Warfarin Sodium (Coumadin) 8 mg DAILY16 PO ; Start 06/27/17 at 16:00; Status Cancel Active Scripts Active Keflex (Cephalexin) 500 Mg Capsule 500 Mg PO QID 5 Days Reported Amlodipine Besylate 5 Mg Tablet 10 Mg PO DAILY Azathioprine 50 Mg Tablet 4 Tab PO DAILY Docusate Sodium 100 Mg Capsule 1 Cap PO TID PRN PRN Ferrous Sulfate 325 Mg Tablet 1 Tab PO BIDAC Ondansetron Hcl 4 Mg Tablet 1 Tab PO PRN Q8HRS PRN Prednisone 10 Mg Tablet 5 Mg PO DAILY Thiamine Hcl 100 Mg Tablet 100 Mg PO Nystatin-Triamcinolone Cream (Nystatin/Triamcin) 15 Gm Cream..g. 1 Alexis TP BID Pantoprazole Sodium 40 Mg Tablet.dr 1 Tab PO DAILY Tacrolimus 0.5 Mg Capsule 0.5 Mg PO DAILY Tylenol (Acetaminophen) 325 Mg Tablet 1 Tab PO PRN Q6HRS PRN Haloperidol 0.5 Mg Tablet 0.25 Mg PO PRN Q8HRS PRN Metoprolol Tartrate 50 Mg Tablet 3 Tab PO BID Novolog Flexpen (Insulin Aspart) 100 Unit/1 Ml Insuln.pen 22 Unit SQ AC SUPPER Novolog Flexpen (Insulin Aspart) 100 Unit/1 Ml Insuln.pen 18 Unit SQ AC LUNCH Novolog Flexpen (Insulin Aspart) 100 Unit/1 Ml Insuln.pen 10 Unit SQ AC BREAKFAST Levothyroxine Sodium 88 Mcg Tablet 1 Tab PO DAILY Atorvastatin Calcium 10 Mg Tablet 1 Tab PO DAILY Loratadine 10 Mg Tablet 1 Tab PO DAILY Hydrochlorothiazide Tablet (Hydrochlorothiazide) 25 Mg Tablet 25 Mg PO DAILY Pepcid Ac (Famotidine) 20 Mg Tablet 20 Mg PO HS Tacrolimus 1 Mg Capsule 1 Mg PO BID Men's Multivitamin Gummies (Folic Acid/Multivit-Minerals) 200 Mcg Tab.chew 200 Mcg PO Aspirin 81 Mg Tab.chew 1 Tab PO DAILY Lantus (Insulin Glargine,Hum.rec.anlog) 100 Unit/1 Ml Vial 70 Unit SQ QHS Alendronate Sodium 70 Mg Tablet 70 Mg PO WEEKLY Vital Signs Vital Signs Date Time Temp Pulse Resp B/P (MAP) Pulse Ox O2 Delivery O2 Flow Rate FiO2 06/27/17 17:00 85 23 172/78 (109) 97 Room Air 06/27/17 16:00 98.8 98.8 Labs Laboratory Tests Test 06/25/17 20:46 06/26/17 05:55 06/26/17 12:00 06/26/17 20:40 Glucose (Fingerstick) 79 mg/dL (70-99) 116 mg/dL (70-99) White Blood Count 5.8 x10^3/uL (4.0-11.0) Red Blood Count 2.68 x10^6/uL (4.30-5.70) Hemoglobin 8.5 g/dL (13.0-17.5) Hematocrit 26.4 % (39.0-53.0) Mean Corpuscular Volume 99 fL (79-100) Mean Corpuscular Hemoglobin 32 pg (25-35) Mean Corpuscular Hemoglobin Concent 32 g/dL (31-37) Red Cell Distribution Width 21.4 % (11.5-14.5) Platelet Count 147 x10^3/uL (140-400) Neutrophils (%) (Auto) 77 % (31-73) Lymphocytes (%) (Auto) 12 % (24-48) Monocytes (%) (Auto) 10 % (0-9) Eosinophils (%) (Auto) 1 % (0-3) Basophils (%) (Auto) 0 % (0-3) Neutrophils # (Auto) 4.4 x10^3uL (1.8-7.7) Lymphocytes # (Auto) 0.7 x10^3/uL (1.0-4.8) Monocytes # (Auto) 0.6 x10^3/uL (0.0-1.1) Eosinophils # (Auto) 0.0 x10^3/uL (0.0-0.7) Basophils # (Auto) 0.0 x10^3/uL (0.0-0.2) Sodium Level 149 mmol/L (136-145) 149 mmol/L (136-145) Potassium Level 3.7 mmol/L (3.5-5.1) 3.7 mmol/L (3.5-5.1) Chloride Level 109 mmol/L (98-107) 110 mmol/L (98-107) Carbon Dioxide Level 31 mmol/L (21-32) 32 mmol/L (21-32) Anion Gap 9 (6-14) 7 (6-14) Blood Urea Nitrogen 22 mg/dL (8-26) 22 mg/dL (8-26) Creatinine 2.1 mg/dL (0.7-1.3) 2.0 mg/dL (0.7-1.3) Estimated GFR (Cockcroft-Gault) 31.0 32.8 BUN/Creatinine Ratio 10 (6-20) Glucose Level 63 mg/dL (70-99) 67 mg/dL (70-99) Calcium Level 8.4 mg/dL (8.5-10.1) 8.8 mg/dL (8.5-10.1) Phosphorus Level 3.1 mg/dL (2.6-4.7) Magnesium Level 2.0 mg/dL (1.8-2.4) Total Bilirubin 0.7 mg/dL (0.2-1.0) Aspartate Amino Transf (AST/SGOT) 17 U/L (15-37) Alanine Aminotransferase (ALT/SGPT) 11 U/L (16-63) Alkaline Phosphatase 65 U/L (46-116) Total Protein 5.5 g/dL (6.4-8.2) Albumin 2.8 g/dL (3.4-5.0) Albumin/Globulin Ratio 1.0 (1.0-1.7) Test 06/27/17 06:11 06/27/17 07:35 06/27/17 08:43 06/27/17 09:39 White Blood Count 8.2 x10^3/uL (4.0-11.0) Red Blood Count 2.90 x10^6/uL (4.30-5.70) Hemoglobin 9.2 g/dL (13.0-17.5) Hematocrit 28.7 % (39.0-53.0) Mean Corpuscular Volume 99 fL (79-100) Mean Corpuscular Hemoglobin 32 pg (25-35) Mean Corpuscular Hemoglobin Concent 32 g/dL (31-37) Red Cell Distribution Width 21.0 % (11.5-14.5) Platelet Count 172 x10^3/uL (140-400) Neutrophils (%) (Auto) 78 % (31-73) Lymphocytes (%) (Auto) 11 % (24-48) Monocytes (%) (Auto) 10 % (0-9) Eosinophils (%) (Auto) 1 % (0-3) Basophils (%) (Auto) 1 % (0-3) Neutrophils # (Auto) 6.4 x10^3uL (1.8-7.7) Lymphocytes # (Auto) 0.9 x10^3/uL (1.0-4.8) Monocytes # (Auto) 0.8 x10^3/uL (0.0-1.1) Eosinophils # (Auto) 0.0 x10^3/uL (0.0-0.7) Basophils # (Auto) 0.1 x10^3/uL (0.0-0.2) Sodium Level 147 mmol/L (136-145) Potassium Level 3.8 mmol/L (3.5-5.1) Chloride Level 108 mmol/L (98-107) Carbon Dioxide Level 30 mmol/L (21-32) Anion Gap 9 (6-14) Blood Urea Nitrogen 25 mg/dL (8-26) Creatinine 2.4 mg/dL (0.7-1.3) Estimated GFR (Cockcroft-Gault) 26.6 BUN/Creatinine Ratio 10 (6-20) Glucose Level 84 mg/dL (70-99) Calcium Level 8.4 mg/dL (8.5-10.1) Phosphorus Level 2.9 mg/dL (2.6-4.7) Magnesium Level 1.9 mg/dL (1.8-2.4) Total Bilirubin 0.6 mg/dL (0.2-1.0) Aspartate Amino Transf (AST/SGOT) 18 U/L (15-37) Alanine Aminotransferase (ALT/SGPT) 12 U/L (16-63) Alkaline Phosphatase 77 U/L (46-116) Total Protein 5.5 g/dL (6.4-8.2) Albumin 2.5 g/dL (3.4-5.0) Albumin/Globulin Ratio 0.8 (1.0-1.7) Glucose (Fingerstick) 79 mg/dL (70-99) 75 mg/dL (70-99) 71 mg/dL (70-99) Laboratory Tests Test 06/26/17 20:40 06/27/17 06:11 06/27/17 07:35 06/27/17 08:43 Glucose (Fingerstick) 116 mg/dL (70-99) 79 mg/dL (70-99) 75 mg/dL (70-99) White Blood Count 8.2 x10^3/uL (4.0-11.0) Red Blood Count 2.90 x10^6/uL (4.30-5.70) Hemoglobin 9.2 g/dL (13.0-17.5) Hematocrit 28.7 % (39.0-53.0) Mean Corpuscular Volume 99 fL (79-100) Mean Corpuscular Hemoglobin 32 pg (25-35) Mean Corpuscular Hemoglobin Concent 32 g/dL (31-37) Red Cell Distribution Width 21.0 % (11.5-14.5) Platelet Count 172 x10^3/uL (140-400) Neutrophils (%) (Auto) 78 % (31-73) Lymphocytes (%) (Auto) 11 % (24-48) Monocytes (%) (Auto) 10 % (0-9) Eosinophils (%) (Auto) 1 % (0-3) Basophils (%) (Auto) 1 % (0-3) Neutrophils # (Auto) 6.4 x10^3uL (1.8-7.7) Lymphocytes # (Auto) 0.9 x10^3/uL (1.0-4.8) Monocytes # (Auto) 0.8 x10^3/uL (0.0-1.1) Eosinophils # (Auto) 0.0 x10^3/uL (0.0-0.7) Basophils # (Auto) 0.1 x10^3/uL (0.0-0.2) Sodium Level 147 mmol/L (136-145) Potassium Level 3.8 mmol/L (3.5-5.1) Chloride Level 108 mmol/L (98-107) Carbon Dioxide Level 30 mmol/L (21-32) Anion Gap 9 (6-14) Blood Urea Nitrogen 25 mg/dL (8-26) Creatinine 2.4 mg/dL (0.7-1.3) Estimated GFR (Cockcroft-Gault) 26.6 BUN/Creatinine Ratio 10 (6-20) Glucose Level 84 mg/dL (70-99) Calcium Level 8.4 mg/dL (8.5-10.1) Phosphorus Level 2.9 mg/dL (2.6-4.7) Magnesium Level 1.9 mg/dL (1.8-2.4) Total Bilirubin 0.6 mg/dL (0.2-1.0) Aspartate Amino Transf (AST/SGOT) 18 U/L (15-37) Alanine Aminotransferase (ALT/SGPT) 12 U/L (16-63) Alkaline Phosphatase 77 U/L (46-116) Total Protein 5.5 g/dL (6.4-8.2) Albumin 2.5 g/dL (3.4-5.0) Albumin/Globulin Ratio 0.8 (1.0-1.7) Test 06/27/17 09:39 Glucose (Fingerstick) 71 mg/dL (70-99) Allergies Allergies Coded Allergies Type Severity Reaction Last Updated Verified No Known Drug Allergies 05/08/17 No Disposition/Orders: Other (TRANSFER TO [facility] D/C PLANNING CC TIME 105 MIN) ÁLVARO BELTRAN MD Jun 27, 2017 17:48
[2017-06-27] MEDS: hydrALAZINE 20 MG/ML VIAL. IVP PRN (19:59)
[2017-06-27] MEDS: FAMOTIDINE 20 MG TABLET. PO SCH (21:04)
[2017-06-27] MEDS: INSULIN DETEMIR 300 UNITS/3 ML INSULN.PEN. SQ SCH (21:06)
[2017-06-28] VITALS (27 sets, daily range): BP systolic 140–194; BP diastolic 58–83
--- NOTE | 2017-06-28 01:30 | RAD ---
INDICATION: dobbhoff placement COMPARISON: June 25, 2017 IMPRESSION: Single view of upper abdomen obtained. A single enteric tube is seen coursing below the diaphragm. Tip is not visualized since it is likely outside of the field of view. Calcific atherosclerosis with prominent appearance of partially visualized cardiac silhouette. There is also some haziness of the bilateral lungs partially seen. This is not well evaluated on this exam but causes such as atelectasis, edema or infiltrate are possible. Electronically signed by: Elton Dey MD (06/28/2017 1:26 AM) [id number]
[2017-06-28] MEDS: hydrALAZINE 20 MG/ML VIAL. IVP PRN ×3 (04:30→19:42)
[2017-06-28 05:59] LABS: BASO # 0.1 x10^3/uL (0.0-0.2); BASO % 1 % (0-3); EOS % 1 % (0-3); HEMATOCRIT 30.2 % (39.0-53.0); HEMOGLOBIN 9.7 g/dL (13.0-17.5); LYMPH % 10 % (24-48); MEAN CORPUSCULAR HEMOGLOBIN 31 pg (25-35); MEAN CORPUSCULAR HGB CONC 32 g/dL (31-37); MEAN CORPUSCULAR VOLUME 97 fL (79-100); MONO % 10 % (0-9); NEUT % 78 % (31-73); PLATELET COUNT 200 x10^3/uL (140-400); RED BLOOD COUNT 3.12 x10^6/uL (4.30-5.70); RED CELL DISTRIBUTION WIDTH 20.7 % (11.5-14.5); WHITE BLOOD COUNT 10.2 x10^3/uL (4.0-11.0)
[2017-06-28 06:10] LABS: ALBUMIN 2.5 g/dL (3.4-5.0); ALBUMIN/GLOBULIN RATIO 0.8 (1.0-1.7); CALCIUM 8.7 mg/dL (8.5-10.1); CREATININE 2.9 mg/dL (0.7-1.3); GFR 21.4; PHOSPHORUS 3.2 mg/dL (2.6-4.7); POTASSIUM 3.5 mmol/L (3.5-5.1); TOTAL BILIRUBIN 0.6 mg/dL (0.2-1.0); TOTAL PROTEIN 5.7 g/dL (6.4-8.2)
--- NOTE | 2017-06-28 07:27 | RAD ---
Portable chest, 06/28/2017: History: Respiratory failure Comparison is made to yesterday's study. An NG tube extends into the stomach. A right jugular central venous catheter extends to the junction of the right innominate vein in the superior vena cava. The heart is enlarged. The pulmonary vascularity remains congested with hazy bilateral pulmonary infiltrates and pleural effusions. Similar findings were present on yesterday's study. There has been no improvement. No new abnormality is detected. IMPRESSION: 1. Stable tube positions. 2. Unchanged pleural effusions and pulmonary infiltrates, most compatible with congestive heart failure.
[2017-06-28 07:31] LABS: NUCLEATED RBC 1; PLT ESTIMATE ADEQUATE (ADEQUATE)
[2017-06-28 07:32] LABS: ANISOCYTOSIS SLIGHT; POLYCHROMASIA SLIGHT
[2017-06-28] MEDS: ISOSORBIDE MONONITRATE ER 30 MG TAB.ER.24H PO SCH (09:00)
--- NOTE | 2017-06-28 09:07 | PDOC ---
SUBJECTIVE ROS Renal Txp and CKD III Remains Oliguric CVS: no Orthopnea, no CP RESP: no SOB, no SHELTON GI: no Nausea, no Vomiting : no Dysuria, no Urgency OBJECTIVE Vital Signs Vital Signs Date Time Temp Pulse Resp B/P (MAP) Pulse Ox O2 Delivery O2 Flow Rate FiO2 06/28/17 07:00 90 26 142/65 (90) 97 Room Air 06/28/17 04:00 97.6 97.6 I & 0 Intake and Output 06/28/17 06:59 Intake Total 2943 ml Output Total 196 ml Balance 2747 ml IV Total 500 ml Tube Feeding 2043 ml Other 400 ml Output Urine Total 196 ml PHYSICAL EXAM Physical Exam General Appearance: Awake but often disoriented currently O x 1, In no Distress; morbidly obese WM Eyes: Sclera Anicteric- Conjunctiva Normal EN: No EN Drainage Mucous Memb. dryish; ; NGT in place Neck: no JVD no JVP Supple no Thyromegaly; short thick neck CVS: S1 S2 no Murmur No Gallop No Rub Ch Lymph Edema (? elephantiasis) ; Upper ext with tr edema Resp: rare basal Rales rare Rhonchi no Acc. Muscle use GI: BS +ve NO Bruit Non Tender Non Distended; Morbidly obese : no CVA tenderness; no Suprapubic Tenderness; unable to palpate Txp given obesity Assessment & Plan: CKD -T stage III/ IV - Creat up a little again today. UO is scant. does not want anyone to touch the transplant kidney, hence no Bx ordered today - Appears to have fluid accumulation in lungs with IVF administration. Hnce will try Alb Oliguria (REJI ?) - checking FK levels. IVF boluses prn. ^ water fluids with TF Renal Txp - ct current immunosuppression. has NGT placed back in pending swallow eval Edema/ Anasarca - suspect RHF / Pulm HTN - somewhat better after IV Alb Nutrition - await swallow eval - TF for now ^Na - ^ Free water supplementation via TF - watch trend on Alb Pl Eff - ? Drain with thoracentesis Renal Masses on [facility] - Will need URO eval when services avail here - Consider Transfer to [facility] for same. Kidney stone seen on CT - Not seen on US CHF on CXR - ? Needs Pl. Eff drained - will request cardiology to reval for same - ? due to Ao insuff COMMENT/RELEVANT DATA Meds Current Medications Medications (Trade) Dose Ordered Sig/Ivett Start Time Stop Time Status Last Admin Dose Admin Acetaminophen (Tylenol) 650 mg PRN Q4HRS PRN 06/22/17 06:45 06/23/17 06:44 DC Albumin Human 200 ml @ 100 mls/hr Q6H 06/28/17 09:00 06/28/17 22:59 Amino Acids/ Glycerin/ Electrolytes 1,000 ml @ 80 mls/hr [id number] 06/26/17 09:15 06/26/17 10:44 DC Aspirin (Children'S Aspirin) 81 mg DAILY 06/22/17 12:00 06/27/17 10:52 81 MG Atorvastatin Calcium (Lipitor) 10 mg DAILY 06/22/17 12:00 06/27/17 10:53 10 MG Azathioprine (Imuran) 50 mg DAILY 06/22/17 12:00 06/27/17 10:52 50 MG Cetirizine HCl (ZyrTEC) 10 mg DAILY 06/22/17 12:00 06/27/17 10:53 10 MG Chlorhexidine Gluconate (Peridex) 15 ml BID 06/25/17 21:00 06/26/17 08:42 DC Dextrose (Dextrose 50%-Water Syringe) 12.5 gm PRN Q15MIN PRN 06/25/17 06:15 06/27/17 09:49 12.5 GM Enoxaparin Sodium (Lovenox 40mg Syringe) 40 mg BID 06/25/17 12:00 06/27/17 21:04 40 MG Etomidate (Amidate) 20 mg STK-MED ONCE 06/22/17 05:47 06/22/17 05:48 DC Famotidine (Pepcid) 20 mg HS 06/22/17 21:00 06/27/17 21:04 20 MG Fentanyl Citrate (Fentanyl 2ml Vial) 25 mcg PRN Q4HRS PRN 06/23/17 15:45 06/23/17 18:35 25 MCG Furosemide (Lasix) 20 mg 1X ONCE 06/24/17 11:15 06/24/17 11:16 DC 06/24/17 12:59 20 MG Hydralazine HCl (Apresoline Inj) 10 mg PRN Q4HRS PRN 06/27/17 20:00 06/28/17 04:30 10 MG Insulin Detemir (Levemir) 55 units QHS 06/25/17 21:00 06/27/17 21:06 55 UNITS Isosorbide Mononitrate (Imdur) 30 mg DAILY 06/26/17 09:00 Levothyroxine Sodium (Synthroid) 88 mcg DAILYAC 06/22/17 12:00 06/27/17 10:52 88 MCG Magnesium Sulfate/ Dextrose 50 ml @ 25 mls/hr 1X ONCE 06/24/17 06:30 06/24/17 08:29 DC 06/24/17 06:32 25 MLS/HR Metoprolol Tartrate (Lopressor) 50 mg BID 06/22/17 21:00 06/27/17 21:05 50 MG Midazolam HCl (Versed) 2 mg 1X ONCE 06/22/17 07:30 06/22/17 07:31 DC 06/22/17 07:30 2 MG Norepinephrine Bitartrate 250 ml @ 0 mls/hr CONT PRN 06/22/17 08:30 06/22/17 13:02 5 MLS/HR Nystatin (Nystop) 1 ana BID 06/25/17 21:00 06/27/17 21:04 1 ANA Ondansetron HCl (Zofran) 4 mg PRN Q8HRS PRN 06/22/17 06:45 06/23/17 06:44 DC Piperacillin Sod/ Tazobactam Sod (Zosyn Per Pharmacy) 1 each PRN DAILY PRN 06/22/17 11:00 06/26/17 08:38 DC Piperacillin Sod/ Tazobactam Sod (Zosyn) 4.5 gm Q6HRS 06/22/17 12:00 06/27/17 14:37 DC 06/27/17 05:51 4.5 GM Potassium Phosphate 13.6 mmol/Sodium Chloride 104.5333 ml @ 52.267 m... Q2H 06/24/17 11:00 06/24/17 16:59 DC 06/24/17 18:07 52.267 MLS/HR Prednisone (Prednisone) 20 mg DAILY 06/22/17 12:00 06/27/17 10:53 20 MG Propofol 100 ml @ 0 mls/hr CONT PRN 06/22/17 06:30 06/25/17 03:20 0 MLS/HR Rocuronium Waucoma (Zemuron) 50 mg STK-MED ONCE 06/22/17 05:48 06/22/17 05:49 DC Sodium Chloride 500 ml @ 500 mls/hr 1X ONCE 06/27/17 08:00 06/27/17 10:39 DC 06/27/17 08:00 500 MLS/HR Tacrolimus (Prograf) 1 mg BID 06/22/17 12:00 06/27/17 21:04 1 MG Vancomycin HCl 1 each 1X ONCE 06/24/17 12:30 06/24/17 12:31 DC 06/24/17 12:30 1 EACH Vancomycin HCl (Vanco Per Pharmacy) 1 each PRN DAILY PRN 06/22/17 11:00 06/27/17 14:42 DC 06/26/17 15:34 1 EACH Vancomycin HCl 2 gm/Dextrose/ Sodium Chloride 500 ml @ 250 mls/hr Q48H 06/26/17 13:00 06/27/17 14:37 DC 06/26/17 13:17 250 MLS/HR Warfarin Sodium (Coumadin) 8 mg DAILY16 06/27/17 16:00 Cancel Lab Laboratory Tests Test 06/27/17 09:39 06/27/17 16:30 06/27/17 21:06 06/28/17 05:48 Glucose (Fingerstick) 71 mg/dL (70-99) 142 mg/dL (70-99) Urine Random Sodium 63 mmol/L (Not Estab.) White Blood Count 10.2 x10^3/uL (4.0-11.0) Red Blood Count 3.12 x10^6/uL (4.30-5.70) Hemoglobin 9.7 g/dL (13.0-17.5) Hematocrit 30.2 % (39.0-53.0) Mean Corpuscular Volume 97 fL (79-100) Mean Corpuscular Hemoglobin 31 pg (25-35) Mean Corpuscular Hemoglobin Concent 32 g/dL (31-37) Red Cell Distribution Width 20.7 % (11.5-14.5) Platelet Count 200 x10^3/uL (140-400) Neutrophils (%) (Auto) 78 % (31-73) Lymphocytes (%) (Auto) 10 % (24-48) Monocytes (%) (Auto) 10 % (0-9) Eosinophils (%) (Auto) 1 % (0-3) Basophils (%) (Auto) 1 % (0-3) Neutrophils # (Auto) 7.9 x10^3uL (1.8-7.7) Lymphocytes # (Auto) 1.0 x10^3/uL (1.0-4.8) Monocytes # (Auto) 1.1 x10^3/uL (0.0-1.1) Eosinophils # (Auto) 0.1 x10^3/uL (0.0-0.7) Basophils # (Auto) 0.1 x10^3/uL (0.0-0.2) Segmented Neutrophils % 72 % (35-66) Lymphocytes % 13 % (24-48) Monocytes % 15 % (0-10) Nucleated Red Blood Cells 1 Platelet Estimate Adequate (ADEQUATE) Polychromasia Slight Anisocytosis Slight Sodium Level 147 mmol/L (136-145) Potassium Level 3.5 mmol/L (3.5-5.1) Chloride Level 108 mmol/L (98-107) Carbon Dioxide Level 29 mmol/L (21-32) Anion Gap 10 (6-14) Blood Urea Nitrogen 33 mg/dL (8-26) Creatinine 2.9 mg/dL (0.7-1.3) Estimated GFR (Cockcroft-Gault) 21.4 BUN/Creatinine Ratio 11 (6-20) Glucose Level 92 mg/dL (70-99) Calcium Level 8.7 mg/dL (8.5-10.1) Phosphorus Level 3.2 mg/dL (2.6-4.7) Magnesium Level 2.0 mg/dL (1.8-2.4) Total Bilirubin 0.6 mg/dL (0.2-1.0) Aspartate Amino Transf (AST/SGOT) 18 U/L (15-37) Alanine Aminotransferase (ALT/SGPT) 12 U/L (16-63) Alkaline Phosphatase 80 U/L (46-116) Total Protein 5.7 g/dL (6.4-8.2) Albumin 2.5 g/dL (3.4-5.0) Albumin/Globulin Ratio 0.8 (1.0-1.7) SCHUYLER GALAVIZ MD Jun 28, 2017 09:07
[2017-06-28] MEDS: ALBUMIN HUMAN 25% 200 ML IV SCH ×3 (09:29→20:35)
[2017-06-28] MEDS: azaTHIOprine 50 MG TABLET PO SCH (09:30)
[2017-06-28] MEDS: predniSONE 20 MG TABLET PO SCH (09:30)
[2017-06-28] MEDS: TACROLIMUS 1 MG CAPSULE PO SCH ×2 (09:30→20:36)
[2017-06-28] MEDS: ASPIRIN CHEWABLE 81 MG TABLET. PO SCH (09:30)
[2017-06-28] MEDS: LEVOTHYROXINE 88 MCG TABLET PO SCH (09:30)
[2017-06-28] MEDS: ATORVASTATIN CALCIUM 10 MG TABLET. PO SCH (09:30)
[2017-06-28] MEDS: CETIRIZINE HCL 10 MG TABLET. PO SCH (09:30)
[2017-06-28] MEDS: METOPROLOL TART IMMED RELEASE 50 MG TABLET. PO SCH ×2 (09:33→20:36)
[2017-06-28] MEDS: ENOXAPARIN 40 MG/0.4 ML SYRINGE. SQ SCH (09:33)
[2017-06-28] MEDS: NYSTATIN TOPICAL POWDER 15GM BOTTLE. TP SCH (09:36)
--- NOTE | 2017-06-28 12:45 | PDOC2 ---
PALLIATIVE CARE Palliative Care Note Palliative Care Patient remains confused. Patient not accepted at [facility]--did not meet criteria per staff. Spoke with Dr. Jade Hubbard and Dr. Ontiveros informed of above. called and informed. Mejía transplant # provided per [phone]. Will continue to follow and support. RIC DING Jun 28, 2017 12:45
--- NOTE | 2017-06-28 15:23 | PDOC ---
PROGRESS NOTES Chief Complaint Chief Complaint Acute hypercarbic, hypoxic respiratory failure ASSESSMENT AND PLAN: 1. CHF exacerbation: no previous hx, poss driven by afib. echo on 06/22 with normal EF, pAP 52. CT with bilat effusions, suspected aspir PNA. on 3liters nc 2. Afib: rate controlled. cardiology following. apparently, family unaware of existing hx; per cardiology, pt has declined OAC in past 3. Aspir PNA: bilat with PO contrast in lower lungs. on broad spectrum Abx 4. Anemia: significant drop of 2+g since admit, now stable ~8.5. no obvious sign of massive bleeding. both urine and respir secretions pink. check OB stool poss chronic anemia (renal insufficiency, inflammation) with initial intravascular contraction 5. REJI on CKD3: s/p renal transplant. sl creat bump 2/2 vasomotor etiologies. essentially stable. nephrology following 6. Immunocompromise: on mult immunosuppressants post renal transplant 7. HTN: borderline control on BB. BEATA-I/ARB is ok by nephrology 8. DM2: currently tight control with home levemir dose. decrease some monitor with ISS 9. BEVERLY: on CPAP at home, not in SNF over past 2 weeks 10. Nutrition: NG 11. Prophylaxis: H2B, lovenox 12. MOD AI and pulmonary hypertension 13. severe lymphedema and dermatitis right leg 14. hypoxic respiratory failure requiring mechanical intubation 15. pulmonary edema 16. intravascular volume depletion, fluid bolus, flushes q 4 grs IV ALBUMIN PLAN ATTEMPTING TRANSFER TO [facility], Denied yesterday History of Present Illness History of Present Illness awake, alert memory better Vitals Vitals Vital Signs Date Time Temp Pulse Resp B/P (MAP) Pulse Ox O2 Delivery O2 Flow Rate FiO2 06/28/17 12:00 Room Air 06/28/17 10:00 80 21 162/69 (100) 96 06/28/17 08:00 97.8 97.8 Physical Exam Physical Exam Physical Exam General: Alert, No acute distress oral mucosa dry Heart: Other (AFIB rate controlled; distant heart sounds) Lungs: Clear (ant) Abdomen: Soft, Other (obese), nontender Extremities: Other ( 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 3 plus pitting edema Skin: Other (chronic venous stasis changes) urine output better with iv albumin General: Alert, No acute distress Heart: Other (AFIB rate controlled; distant heart sounds) Lungs: Crackles Abdomen: Soft, Other (obese) Extremities: Other ( s/p L AKA) Skin: Other (chronic venous stasis changes) Labs LABS Laboratory Tests Test 06/27/17 16:30 06/27/17 21:06 06/28/17 05:48 06/28/17 14:00 Urine Random Sodium 63 mmol/L (Not Estab.) Glucose (Fingerstick) 142 mg/dL (70-99) 97 mg/dL (70-99) White Blood Count 10.2 x10^3/uL (4.0-11.0) Red Blood Count 3.12 x10^6/uL (4.30-5.70) Hemoglobin 9.7 g/dL (13.0-17.5) Hematocrit 30.2 % (39.0-53.0) Mean Corpuscular Volume 97 fL (79-100) Mean Corpuscular Hemoglobin 31 pg (25-35) Mean Corpuscular Hemoglobin Concent 32 g/dL (31-37) Red Cell Distribution Width 20.7 % (11.5-14.5) Platelet Count 200 x10^3/uL (140-400) Neutrophils (%) (Auto) 78 % (31-73) Lymphocytes (%) (Auto) 10 % (24-48) Monocytes (%) (Auto) 10 % (0-9) Eosinophils (%) (Auto) 1 % (0-3) Basophils (%) (Auto) 1 % (0-3) Neutrophils # (Auto) 7.9 x10^3uL (1.8-7.7) Lymphocytes # (Auto) 1.0 x10^3/uL (1.0-4.8) Monocytes # (Auto) 1.1 x10^3/uL (0.0-1.1) Eosinophils # (Auto) 0.1 x10^3/uL (0.0-0.7) Basophils # (Auto) 0.1 x10^3/uL (0.0-0.2) Segmented Neutrophils % 72 % (35-66) Lymphocytes % 13 % (24-48) Monocytes % 15 % (0-10) Nucleated Red Blood Cells 1 Platelet Estimate Adequate (ADEQUATE) Polychromasia Slight Anisocytosis Slight Sodium Level 147 mmol/L (136-145) Potassium Level 3.5 mmol/L (3.5-5.1) Chloride Level 108 mmol/L (98-107) Carbon Dioxide Level 29 mmol/L (21-32) Anion Gap 10 (6-14) Blood Urea Nitrogen 33 mg/dL (8-26) Creatinine 2.9 mg/dL (0.7-1.3) Estimated GFR (Cockcroft-Gault) 21.4 BUN/Creatinine Ratio 11 (6-20) Glucose Level 92 mg/dL (70-99) Calcium Level 8.7 mg/dL (8.5-10.1) Phosphorus Level 3.2 mg/dL (2.6-4.7) Magnesium Level 2.0 mg/dL (1.8-2.4) Total Bilirubin 0.6 mg/dL (0.2-1.0) Aspartate Amino Transf (AST/SGOT) 18 U/L (15-37) Alanine Aminotransferase (ALT/SGPT) 12 U/L (16-63) Alkaline Phosphatase 80 U/L (46-116) Total Protein 5.7 g/dL (6.4-8.2) Albumin 2.5 g/dL (3.4-5.0) Albumin/Globulin Ratio 0.8 (1.0-1.7) Assessment and Plan Assessmemt and Plan Problems Medical Problems: (1) Acute encephalopathy Status: Acute (2) Pulmonary edema Status: Acute (3) Respiratory acidosis Status: Acute ASSESSMENT AND PLAN: 1. CHF exacerbation: no previous hx, poss driven by afib. echo on 06/22 with normal EF, pAP 52. CT with bilat effusions, suspected aspir PNA. on 3liters nc 2. Afib: rate controlled. cardiology following. apparently, family unaware of existing hx; per cardiology, pt has declined OAC in past 3. Aspir PNA: bilat with PO contrast in lower lungs. on broad spectrum Abx 4. Anemia: significant drop of 2+g since admit, now stable ~8.5. no obvious sign of massive bleeding. both urine and respir secretions pink. check OB stool poss chronic anemia (renal insufficiency, inflammation) with initial intravascular contraction 5. REJI on CKD3: s/p renal transplant. sl creat bump 2/2 vasomotor etiologies. essentially stable. nephrology following 6. Immunocompromise: on mult immunosuppressants post renal transplant 7. HTN: borderline control on BB. BEATA-I/ARB is ok by nephrology 8. DM2: currently tight control with home levemir dose. decrease some monitor with ISS 9. BEVERLY: on CPAP at home, not in SNF over past 2 weeks 10. Nutrition: NG 11. Prophylaxis: H2B, lovenox 12. MOD AI and pulmonary hypertension 13. severe lymphedema and dermatitis right leg 14. hypoxic respiratory failure requiring mechanical intubation 15. pulmonary edema 16. intravascular volume depletion, fluid bolus, flushes q 4 grs IV ALBUMIN prn 35 min cc time Problems: Comment Review of Relevant I have reviewed the following items buzz (where applicable) has been applied. Labs Laboratory Tests Test 06/26/17 20:40 06/27/17 06:11 06/27/17 07:35 06/27/17 08:35 Glucose (Fingerstick) 116 mg/dL (70-99) 79 mg/dL (70-99) White Blood Count 8.2 x10^3/uL (4.0-11.0) Red Blood Count 2.90 x10^6/uL (4.30-5.70) Hemoglobin 9.2 g/dL (13.0-17.5) Hematocrit 28.7 % (39.0-53.0) Mean Corpuscular Volume 99 fL (79-100) Mean Corpuscular Hemoglobin 32 pg (25-35) Mean Corpuscular Hemoglobin Concent 32 g/dL (31-37) Red Cell Distribution Width 21.0 % (11.5-14.5) Platelet Count 172 x10^3/uL (140-400) Neutrophils (%) (Auto) 78 % (31-73) Lymphocytes (%) (Auto) 11 % (24-48) Monocytes (%) (Auto) 10 % (0-9) Eosinophils (%) (Auto) 1 % (0-3) Basophils (%) (Auto) 1 % (0-3) Neutrophils # (Auto) 6.4 x10^3uL (1.8-7.7) Lymphocytes # (Auto) 0.9 x10^3/uL (1.0-4.8) Monocytes # (Auto) 0.8 x10^3/uL (0.0-1.1) Eosinophils # (Auto) 0.0 x10^3/uL (0.0-0.7) Basophils # (Auto) 0.1 x10^3/uL (0.0-0.2) Sodium Level 147 mmol/L (136-145) Potassium Level 3.8 mmol/L (3.5-5.1) Chloride Level 108 mmol/L (98-107) Carbon Dioxide Level 30 mmol/L (21-32) Anion Gap 9 (6-14) Blood Urea Nitrogen 25 mg/dL (8-26) Creatinine 2.4 mg/dL (0.7-1.3) Estimated GFR (Cockcroft-Gault) 26.6 BUN/Creatinine Ratio 10 (6-20) Glucose Level 84 mg/dL (70-99) Calcium Level 8.4 mg/dL (8.5-10.1) Phosphorus Level 2.9 mg/dL (2.6-4.7) Magnesium Level 1.9 mg/dL (1.8-2.4) Total Bilirubin 0.6 mg/dL (0.2-1.0) Aspartate Amino Transf (AST/SGOT) 18 U/L (15-37) Alanine Aminotransferase (ALT/SGPT) 12 U/L (16-63) Alkaline Phosphatase 77 U/L (46-116) Total Protein 5.5 g/dL (6.4-8.2) Albumin 2.5 g/dL (3.4-5.0) Albumin/Globulin Ratio 0.8 (1.0-1.7) Tacrolimus (Prograf) Level See separate report Test 06/27/17 08:43 06/27/17 09:39 06/27/17 16:30 06/27/17 21:06 Glucose (Fingerstick) 75 mg/dL (70-99) 71 mg/dL (70-99) 142 mg/dL (70-99) Urine Random Sodium 63 mmol/L (Not Estab.) Test 06/28/17 05:48 06/28/17 14:00 White Blood Count 10.2 x10^3/uL (4.0-11.0) Red Blood Count 3.12 x10^6/uL (4.30-5.70) Hemoglobin 9.7 g/dL (13.0-17.5) Hematocrit 30.2 % (39.0-53.0) Mean Corpuscular Volume 97 fL (79-100) Mean Corpuscular Hemoglobin 31 pg (25-35) Mean Corpuscular Hemoglobin Concent 32 g/dL (31-37) Red Cell Distribution Width 20.7 % (11.5-14.5) Platelet Count 200 x10^3/uL (140-400) Neutrophils (%) (Auto) 78 % (31-73) Lymphocytes (%) (Auto) 10 % (24-48) Monocytes (%) (Auto) 10 % (0-9) Eosinophils (%) (Auto) 1 % (0-3) Basophils (%) (Auto) 1 % (0-3) Neutrophils # (Auto) 7.9 x10^3uL (1.8-7.7) Lymphocytes # (Auto) 1.0 x10^3/uL (1.0-4.8) Monocytes # (Auto) 1.1 x10^3/uL (0.0-1.1) Eosinophils # (Auto) 0.1 x10^3/uL (0.0-0.7) Basophils # (Auto) 0.1 x10^3/uL (0.0-0.2) Segmented Neutrophils % 72 % (35-66) Lymphocytes % 13 % (24-48) Monocytes % 15 % (0-10) Nucleated Red Blood Cells 1 Platelet Estimate Adequate (ADEQUATE) Polychromasia Slight Anisocytosis Slight Sodium Level 147 mmol/L (136-145) Potassium Level 3.5 mmol/L (3.5-5.1) Chloride Level 108 mmol/L (98-107) Carbon Dioxide Level 29 mmol/L (21-32) Anion Gap 10 (6-14) Blood Urea Nitrogen 33 mg/dL (8-26) Creatinine 2.9 mg/dL (0.7-1.3) Estimated GFR (Cockcroft-Gault) 21.4 BUN/Creatinine Ratio 11 (6-20) Glucose Level 92 mg/dL (70-99) Calcium Level 8.7 mg/dL (8.5-10.1) Phosphorus Level 3.2 mg/dL (2.6-4.7) Magnesium Level 2.0 mg/dL (1.8-2.4) Total Bilirubin 0.6 mg/dL (0.2-1.0) Aspartate Amino Transf (AST/SGOT) 18 U/L (15-37) Alanine Aminotransferase (ALT/SGPT) 12 U/L (16-63) Alkaline Phosphatase 80 U/L (46-116) Total Protein 5.7 g/dL (6.4-8.2) Albumin 2.5 g/dL (3.4-5.0) Albumin/Globulin Ratio 0.8 (1.0-1.7) Glucose (Fingerstick) 97 mg/dL (70-99) Laboratory Tests Test 06/27/17 16:30 06/27/17 21:06 06/28/17 05:48 06/28/17 14:00 Urine Random Sodium 63 mmol/L (Not Estab.) Glucose (Fingerstick) 142 mg/dL (70-99) 97 mg/dL (70-99) White Blood Count 10.2 x10^3/uL (4.0-11.0) Red Blood Count 3.12 x10^6/uL (4.30-5.70) Hemoglobin 9.7 g/dL (13.0-17.5) Hematocrit 30.2 % (39.0-53.0) Mean Corpuscular Volume 97 fL (79-100) Mean Corpuscular Hemoglobin 31 pg (25-35) Mean Corpuscular Hemoglobin Concent 32 g/dL (31-37) Red Cell Distribution Width 20.7 % (11.5-14.5) Platelet Count 200 x10^3/uL (140-400) Neutrophils (%) (Auto) 78 % (31-73) Lymphocytes (%) (Auto) 10 % (24-48) Monocytes (%) (Auto) 10 % (0-9) Eosinophils (%) (Auto) 1 % (0-3) Basophils (%) (Auto) 1 % (0-3) Neutrophils # (Auto) 7.9 x10^3uL (1.8-7.7) Lymphocytes # (Auto) 1.0 x10^3/uL (1.0-4.8) Monocytes # (Auto) 1.1 x10^3/uL (0.0-1.1) Eosinophils # (Auto) 0.1 x10^3/uL (0.0-0.7) Basophils # (Auto) 0.1 x10^3/uL (0.0-0.2) Segmented Neutrophils % 72 % (35-66) Lymphocytes % 13 % (24-48) Monocytes % 15 % (0-10) Nucleated Red Blood Cells 1 Platelet Estimate Adequate (ADEQUATE) Polychromasia Slight Anisocytosis Slight Sodium Level 147 mmol/L (136-145) Potassium Level 3.5 mmol/L (3.5-5.1) Chloride Level 108 mmol/L (98-107) Carbon Dioxide Level 29 mmol/L (21-32) Anion Gap 10 (6-14) Blood Urea Nitrogen 33 mg/dL (8-26) Creatinine 2.9 mg/dL (0.7-1.3) Estimated GFR (Cockcroft-Gault) 21.4 BUN/Creatinine Ratio 11 (6-20) Glucose Level 92 mg/dL (70-99) Calcium Level 8.7 mg/dL (8.5-10.1) Phosphorus Level 3.2 mg/dL (2.6-4.7) Magnesium Level 2.0 mg/dL (1.8-2.4) Total Bilirubin 0.6 mg/dL (0.2-1.0) Aspartate Amino Transf (AST/SGOT) 18 U/L (15-37) Alanine Aminotransferase (ALT/SGPT) 12 U/L (16-63) Alkaline Phosphatase 80 U/L (46-116) Total Protein 5.7 g/dL (6.4-8.2) Albumin 2.5 g/dL (3.4-5.0) Albumin/Globulin Ratio 0.8 (1.0-1.7) Medications Current Medications Etomidate (Amidate) 20 mg STK-MED ONCE IV ; Start 06/22/17 at 05:47; Stop at 05:48; Status DC Rocuronium Bledsoe (Zemuron) 50 mg STK-MED ONCE .ROUTE ; Start 06/22/17 at 05:48 ; Stop 06/22/17 at 05:49; Status DC Propofol 50 ml @ As Directed STK-MED ONCE IV ; Start 06/22/17 at 06:15; Stop at 06:16; Status DC Propofol 100 ml @ 0 mls/hr CONT PRN IV SEE I/O RECORD Last administered on 06/25t 03:20; Start 06/22/17 at 06:30 Ondansetron HCl (Zofran) 4 mg PRN Q8HRS PRN IV NAUSEA/VOMITING; Start 06/22/17 at 06:45; Stop 06/23/17 at 06:44; Status DC Fentanyl Citrate (Fentanyl 2ml Vial) 50 mcg PRN Q1HR PRN IV PAIN Last administered on 06/22/17 07:04; Start 06/22/17 at 06:45; Stop 06/23/17 at 06:44 ; Status DC Sodium Chloride 1,000 ml @ 75 mls/hr [id number] IV ; Start 06/22/17 at 06:45; Stop 06/22/17 at 19:47; Status DC Acetaminophen (Tylenol) 650 mg PRN Q4HRS PRN PO FEVER; Start 06/22/17 at 06:45 ; Stop 06/23/17 at 06:44; Status DC Midazolam HCl (Versed) 2 mg STK-MED ONCE .ROUTE ; Start 06/22/17 at 07:17; Stop 06/22/17 at 07:18; Status DC Midazolam HCl 100 ml @ 0 mls/hr CONT PRN IV SEE I/O RECORD Last administered on 06/22/17 23:38; Start 06/22/17 at 07:30 Midazolam HCl (Versed) 2 mg 1X ONCE IV Last administered on 06/22/17 07:30; Start 06/22/17 at 07:30; Stop 06/22/17 at 07:31; Status DC Norepinephrine Bitartrate 250 ml @ As Directed STK-MED ONCE IV ; Start at 08:27; Stop 06/22/17 at 08:28; Status DC Norepinephrine Bitartrate 250 ml @ 0 mls/hr CONT PRN IV SEE I/O RECORD Last administered on 06/22/17 13:02; Start 06/22/17 at 08:30 Sodium Chloride 1,000 ml @ 125 mls/hr Q8H IV Last administered on 06/23/17 08 :21; Start 06/22/17 at 11:00; Stop 06/23/17 at 14:28; Status DC Sodium Chloride 1,000 ml @ 999 mls/hr 1X ONCE IV Last administered on 14:32; Start 06/22/17 at 10:45; Stop 06/22/17 at 11:45; Status DC Vancomycin HCl (Vanco Per Pharmacy) 1 each PRN DAILY PRN MC SEE COMMENTS Last administered on 06/26/17 15:34; Start 06/22/17 at 11:00; Stop 06/27/17 at 14:42 ; Status DC Piperacillin Sod/ Tazobactam Sod (Zosyn Per Pharmacy) 1 each PRN DAILY PRN MC SEE COMMENTS; Start 06/22/17 at 11:00; Stop 06/26/17 at 08:38; Status DC Aspirin (Children'S Aspirin) 81 mg DAILY PO Last administered on 06/28/17 09: 30; Start 06/22/17 at 12:00 Atorvastatin Calcium (Lipitor) 10 mg DAILY PO Last administered on 06/28/17 09 :30; Start 06/22/17 at 12:00 Azathioprine (Imuran) 50 mg DAILY PO Last administered on 06/28/17 09:30; Start 06/22/17 at 12:00 Famotidine (Pepcid) 20 mg HS PO Last administered on 06/27/17 21:04; Start at 21:00 Levothyroxine Sodium (Synthroid) 88 mcg DAILYAC PO Last administered on 09:30; Start 06/22/17 at 12:00 Prednisone (Prednisone) 20 mg DAILY PO Last administered on 06/28/17 09:30; Start 06/22/17 at 12:00 Insulin Detemir (Levemir) 70 units QHS SQ ; Start 06/22/17 at 21:00; Stop at 21:10; Status DC Cetirizine HCl (ZyrTEC) 10 mg DAILY PO Last administered on 06/28/17 09:30; Start 06/22/17 at 12:00 Metoprolol Tartrate (Lopressor) 100 mg BID PO ; Start 06/22/17 at 12:00; Stop 06/22/17 at 18:33; Status DC Tacrolimus (Prograf) 1 mg BID PO Last administered on 06/28/17 09:30; Start 06/22/17 at 12:00 Vancomycin HCl 2 gm/Dextrose/ Sodium Chloride 500 ml @ 250 mls/hr 1X ONCE IV Last administered on 06/22/17 13:04; Start 06/22/17 at 11:30; Stop 06/22/17 at 13:29; Status DC Piperacillin Sod/ Tazobactam Sod (Zosyn) 4.5 gm Q6HRS IVP Last administered on 06/27/17 05:51; Start 06/22/17 at 12:00; Stop 06/27/17 at 14:37; Status DC Vancomycin HCl 2 gm/Dextrose/ Sodium Chloride 500 ml @ 250 mls/hr Q24H IV ; Start 06/23/17 at 13:00; Stop 06/23/17 at 13:00; Status DC Vancomycin HCl 1 each 1X ONCE MC Last administered on 06/24/17 12:30; Start 06/24/17 at 12:30; Stop 06/24/17 at 12:31; Status DC Metoprolol Tartrate (Lopressor) 50 mg BID PO Last administered on 06/28/17 09: 33; Start 06/22/17 at 21:00 Albumin Human 200 ml @ 100 mls/hr TID IV Last administered on 06/22/17 20:44 ; Start 06/22/17 at 21:00; Stop 06/23/17 at 02:42; Status DC Insulin Detemir (Levemir) 70 units QHS SQ Last administered on 06/24/17 21:53 ; Start 06/23/17 at 21:00; Stop 06/25/17 at 10:40; Status DC Insulin Detemir (Levemir) 30 units 1X ONCE SQ Last administered on 06/22/17 21:18; Start 06/22/17 at 21:15; Stop 06/22/17 at 21:16; Status DC Albumin Human 200 ml @ 100 mls/hr TID IV ; Start 06/23/17 at 03:00; Stop at 03:00; Status DC Albumin Human 200 ml @ 100 mls/hr Q6HRS IV Last administered on 06/24/17 05: 47; Start 06/23/17 at 06:00; Stop 06/24/17 at 07:59; Status DC Vancomycin HCl 2 gm/Dextrose/ Sodium Chloride 500 ml @ 250 mls/hr Q24H IV Last administered on 06/24/17 14:43; Start 06/23/17 at 13:00; Stop 06/25/17 at 08:36; Status DC Magnesium Sulfate/ Dextrose 50 ml @ 25 mls/hr PRN DAILY PRN IV for Mag < 1.7 on am labs Last administered on 06/25/17 10:43; Start 06/23/17 at 14:30 Fentanyl Citrate (Fentanyl 2ml Vial) 25 mcg PRN Q4HRS PRN IV PAIN Last administered on 06/23/17 18:35; Start 06/23/17 at 15:45 Magnesium Sulfate/ Dextrose 50 ml @ 25 mls/hr 1X ONCE IV Last administered on 06/24/17 06:32; Start 06/24/17 at 06:30; Stop 06/24/17 at 08:29; Status DC Potassium Phosphate 13.6 mmol/Sodium Chloride 104.5333 ml @ 52.267 m... Q2H IV Last administered on 06/24/17 18:07; Start 06/24/17 at 11:00; Stop 06/24/17 at 16:59; Status DC Furosemide (Lasix) 20 mg 1X ONCE IVP Last administered on 06/24/17 12:59; Start 06/24/17 at 11:15; Stop 06/24/17 at 11:16; Status DC Dextrose (Dextrose 50%-Water Syringe) 25 gm STK-MED ONCE IV ; Start 06/25/17 at 05:58; Stop 06/25/17 at 05:59; Status DC Dextrose (Dextrose 50%-Water Syringe) 12.5 gm PRN Q15MIN PRN IV SEE COMMENTS Last administered on 06/27/17 09:49; Start 06/25/17 at 06:15 Chlorhexidine Gluconate (Peridex) 15 ml BID SWSP ; Start 06/25/17 at 21:00; Stop 06/26/17 at 08:42; Status DC Vancomycin HCl 2 gm/Dextrose/ Sodium Chloride 500 ml @ 250 mls/hr Q48H IV Last administered on 06/26/17 13:17; Start 06/26/17 at 13:00; Stop 06/27/17 at 14:37; Status DC Insulin Detemir (Levemir) 55 units QHS SQ Last administered on 06/27/17 21:06 ; Start 06/25/17 at 21:00 Enoxaparin Sodium (Lovenox 40mg Syringe) 40 mg BID SQ Last administered on 06/28 09:33; Start 06/25/17 at 12:00; Stop 06/28/17 at 10:04; Status DC Nystatin (Nystop) 1 alexis BID TP Last administered on 06/28/17 09:36; Start 06/25/17 at 21:00 Isosorbide Mononitrate (Imdur) 30 mg DAILY PO ; Start 06/26/17 at 09:00 Amino Acids/ Glycerin/ Electrolytes 1,000 ml @ 80 mls/hr [id number] IV ; Start at 09:15; Stop 06/26/17 at 10:44; Status DC Sodium Chloride 500 ml @ 250 mls/hr 1X ONCE IV Last administered on 23:30; Start 06/26/17 at 23:45; Stop 06/27/17 at 01:44; Status DC Sodium Chloride 250 ml @ 250 mls/hr 1X ONCE IV Last administered on 03:00; Start 06/27/17 at 03:15; Stop 06/27/17 at 04:14; Status DC Sodium Chloride 500 ml @ 500 mls/hr 1X ONCE IV Last administered on 08:00; Start 06/27/17 at 08:00; Stop 06/27/17 at 10:39; Status DC Warfarin Sodium (Coumadin) 8 mg DAILY16 PO ; Start 06/27/17 at 16:00; Status Cancel Hydralazine HCl (Apresoline Inj) 10 mg PRN Q4HRS PRN IVP ELEVATED BP, SEE COMMENTS Last administered on 06/28/17 04:30; Start 06/27/17 at 20:00 Albumin Human 200 ml @ 100 mls/hr Q6H IV Last administered on 06/28/17 09:29 ; Start 06/28/17 at 09:00; Stop 06/28/17 at 22:59 Hydralazine HCl (Apresoline Inj) 10 mg PRN Q4HRS PRN IVP ELEVATED BP, SEE COMMENTS; Start 06/28/17 at 09:30 Enoxaparin Sodium (Lovenox 40mg Syringe) 40 mg DAILY SQ ; Start 06/29/17 at 09: 00 Active Scripts Active Keflex (Cephalexin) 500 Mg Capsule 500 Mg PO QID 5 Days Reported Amlodipine Besylate 5 Mg Tablet 10 Mg PO DAILY Azathioprine 50 Mg Tablet 4 Tab PO DAILY Docusate Sodium 100 Mg Capsule 1 Cap PO TID PRN PRN Ferrous Sulfate 325 Mg Tablet 1 Tab PO BIDAC Ondansetron Hcl 4 Mg Tablet 1 Tab PO PRN Q8HRS PRN Prednisone 10 Mg Tablet 5 Mg PO DAILY Thiamine Hcl 100 Mg Tablet 100 Mg PO Nystatin-Triamcinolone Cream (Nystatin/Triamcin) 15 Gm Cream..g. 1 Alexis TP BID Pantoprazole Sodium 40 Mg Tablet.dr 1 Tab PO DAILY Tacrolimus 0.5 Mg Capsule 0.5 Mg PO DAILY Tylenol (Acetaminophen) 325 Mg Tablet 1 Tab PO PRN Q6HRS PRN Haloperidol 0.5 Mg Tablet 0.25 Mg PO PRN Q8HRS PRN Metoprolol Tartrate 50 Mg Tablet 3 Tab PO BID Novolog Flexpen (Insulin Aspart) 100 Unit/1 Ml Insuln.pen 22 Unit SQ AC SUPPER Novolog Flexpen (Insulin Aspart) 100 Unit/1 Ml Insuln.pen 18 Unit SQ AC LUNCH Novolog Flexpen (Insulin Aspart) 100 Unit/1 Ml Insuln.pen 10 Unit SQ AC BREAKFAST Levothyroxine Sodium 88 Mcg Tablet 1 Tab PO DAILY Atorvastatin Calcium 10 Mg Tablet 1 Tab PO DAILY Loratadine 10 Mg Tablet 1 Tab PO DAILY Hydrochlorothiazide Tablet (Hydrochlorothiazide) 25 Mg Tablet 25 Mg PO DAILY Pepcid Ac (Famotidine) 20 Mg Tablet 20 Mg PO HS Tacrolimus 1 Mg Capsule 1 Mg PO BID Men's Multivitamin Gummies (Folic Acid/Multivit-Minerals) 200 Mcg Tab.chew 200 Mcg PO Aspirin 81 Mg Tab.chew 1 Tab PO DAILY Lantus (Insulin Glargine,Hum.rec.anlog) 100 Unit/1 Ml Vial 70 Unit SQ QHS Alendronate Sodium 70 Mg Tablet 70 Mg PO WEEKLY Vitals/I & O Vital Sign - Last 24 Hours 06/27/17 06/27/17 06/27/17 06/27/17 16:00 16:00 17:00 18:00 Temp 98.8 98.8 Pulse 80 85 84 Resp 30 23 25 B/P (MAP) 183/77 (112) 172/78 (109) 177/74 (108) Pulse Ox 98 97 96 O2 Delivery Room Air Room Air Room Air Room Air 06/27/17 06/27/17 06/27/17 06/27/17 19:00 19:59 20:00 20:00 Temp 98.8 98.8 Pulse 86 84 84 Resp 33 24 B/P (MAP) 194/81 (118) 194/81 181/69 (106) Pulse Ox 100 100 O2 Delivery Room Air Room Air Room Air 06/27/17 06/27/17 06/27/17 06/27/17 21:00 21:05 22:00 23:00 Pulse 86 93 86 86 Resp 33 33 33 B/P (MAP) 194/81 (118) 181/69 194/81 (118) 194/81 (118) Pulse Ox 100 100 100 O2 Delivery Room Air Room Air Room Air 06/28/17 06/28/17 06/28/17 06/28/17 00:00 00:00 00:00 01:00 Temp 97.8 97.8 Pulse 86 80 Resp 33 33 B/P (MAP) 194/81 (118) 156/61 (92) Pulse Ox 100 97 O2 Delivery Room Air Room Air Room Air 06/28/17 06/28/17 06/28/17 06/28/17 02:00 03:00 04:00 04:00 Temp 97.6 97.6 Pulse 78 82 84 Resp 26 27 30 B/P (MAP) 158/65 (96) 165/73 (103) 176/66 (102) Pulse Ox 96 97 98 O2 Delivery Room Air Room Air Room Air Room Air 06/28/17 06/28/17 06/28/17 06/28/17 04:30 05:00 06:00 07:00 Pulse 84 77 78 90 Resp 23 2 26 B/P (MAP) 176/86 140/61 (87) 168/70 (102) 142/65 (90) Pulse Ox 98 99 97 O2 Delivery Room Air Room Air Room Air 06/28/17 06/28/17 06/28/17 06/28/17 08:00 08:00 09:00 09:33 Temp 97.8 97.8 Pulse 84 86 81 Resp 26 30 B/P (MAP) 177/71 (106) 164/70 (101) 162/69 Pulse Ox 98 99 O2 Delivery Room Air Room Air Room Air 06/28/17 06/28/17 10:00 12:00 Pulse 80 Resp 21 B/P (MAP) 162/69 (100) Pulse Ox 96 O2 Delivery Room Air Room Air Intake and Output 06/27/17 06/27/17 06/28/17 15:00 23:00 07:00 Intake Total 900 ml 1315 ml 728 ml Output Total 20 ml 80 ml 96 ml Balance 880 ml 1235 ml 632 ml Nutrition Consultation Dietary Evaluation: Recommendations by RD: Increase Calorie Intake, Add supplement feedings Comments: Diabetisource AC@goal rate 75 ml/hr w/200 ml water flushes q4 hrs or flushes per MD Expected Outcomes/Goals: TF tolerated at goal rate and providing > 60% est needs - met at times, ongoing Interpretation of weight loss: >7.5% in 3 months Malnutrition Findings: Food and Nutrition Intake (Mod: <75% est energy req 7days Malnutrition related to morbid: BMI>or equal to 40 Malnutrition related to morbid: Yes Weight Status: Morbidly Obese ÁLVARO BELTRAN MD Jun 28, 2017 15:23
[2017-06-28] MEDS ORDERED: NITROGLYCERIN PREMIX 250 ML IV PRN (18:00)
--- NOTE | 2017-06-28 18:12 | PDOC ---
PULMONARY PROGRESS NOTES Subjective EXTUBATED 06/25 NO 02 NEEDED AT THIS TIME Vitals Vital Signs Date Time Temp Pulse Resp B/P (MAP) Pulse Ox O2 Delivery O2 Flow Rate FiO2 06/28/17 17:10 100 BiPAP/CPAP 06/28/17 15:19 79 184/80 06/28/17 10:00 21 06/28/17 08:00 97.8 97.8 ROS: No Nausea, No Chest Pain, No Abdominal Pain, No Increase Cough General: Alert Lungs: Crackles Cardiovascular: S1 Abdomen: Soft, Other (obese) Neuro Exam: Alert Extremities: Other (right lymphedema, left BKA) Skin: Warm Labs Laboratory Tests Test 06/26/17 20:40 06/27/17 06:11 06/27/17 07:35 06/27/17 08:35 Glucose (Fingerstick) 116 mg/dL (70-99) 79 mg/dL (70-99) White Blood Count 8.2 x10^3/uL (4.0-11.0) Red Blood Count 2.90 x10^6/uL (4.30-5.70) Hemoglobin 9.2 g/dL (13.0-17.5) Hematocrit 28.7 % (39.0-53.0) Mean Corpuscular Volume 99 fL (79-100) Mean Corpuscular Hemoglobin 32 pg (25-35) Mean Corpuscular Hemoglobin Concent 32 g/dL (31-37) Red Cell Distribution Width 21.0 % (11.5-14.5) Platelet Count 172 x10^3/uL (140-400) Neutrophils (%) (Auto) 78 % (31-73) Lymphocytes (%) (Auto) 11 % (24-48) Monocytes (%) (Auto) 10 % (0-9) Eosinophils (%) (Auto) 1 % (0-3) Basophils (%) (Auto) 1 % (0-3) Neutrophils # (Auto) 6.4 x10^3uL (1.8-7.7) Lymphocytes # (Auto) 0.9 x10^3/uL (1.0-4.8) Monocytes # (Auto) 0.8 x10^3/uL (0.0-1.1) Eosinophils # (Auto) 0.0 x10^3/uL (0.0-0.7) Basophils # (Auto) 0.1 x10^3/uL (0.0-0.2) Sodium Level 147 mmol/L (136-145) Potassium Level 3.8 mmol/L (3.5-5.1) Chloride Level 108 mmol/L (98-107) Carbon Dioxide Level 30 mmol/L (21-32) Anion Gap 9 (6-14) Blood Urea Nitrogen 25 mg/dL (8-26) Creatinine 2.4 mg/dL (0.7-1.3) Estimated GFR (Cockcroft-Gault) 26.6 BUN/Creatinine Ratio 10 (6-20) Glucose Level 84 mg/dL (70-99) Calcium Level 8.4 mg/dL (8.5-10.1) Phosphorus Level 2.9 mg/dL (2.6-4.7) Magnesium Level 1.9 mg/dL (1.8-2.4) Total Bilirubin 0.6 mg/dL (0.2-1.0) Aspartate Amino Transf (AST/SGOT) 18 U/L (15-37) Alanine Aminotransferase (ALT/SGPT) 12 U/L (16-63) Alkaline Phosphatase 77 U/L (46-116) Total Protein 5.5 g/dL (6.4-8.2) Albumin 2.5 g/dL (3.4-5.0) Albumin/Globulin Ratio 0.8 (1.0-1.7) Tacrolimus (Prograf) Level See separate report Test 06/27/17 08:43 06/27/17 09:39 06/27/17 16:30 06/27/17 21:06 Glucose (Fingerstick) 75 mg/dL (70-99) 71 mg/dL (70-99) 142 mg/dL (70-99) Urine Random Sodium 63 mmol/L (Not Estab.) Test 06/28/17 05:48 06/28/17 14:00 White Blood Count 10.2 x10^3/uL (4.0-11.0) Red Blood Count 3.12 x10^6/uL (4.30-5.70) Hemoglobin 9.7 g/dL (13.0-17.5) Hematocrit 30.2 % (39.0-53.0) Mean Corpuscular Volume 97 fL (79-100) Mean Corpuscular Hemoglobin 31 pg (25-35) Mean Corpuscular Hemoglobin Concent 32 g/dL (31-37) Red Cell Distribution Width 20.7 % (11.5-14.5) Platelet Count 200 x10^3/uL (140-400) Neutrophils (%) (Auto) 78 % (31-73) Lymphocytes (%) (Auto) 10 % (24-48) Monocytes (%) (Auto) 10 % (0-9) Eosinophils (%) (Auto) 1 % (0-3) Basophils (%) (Auto) 1 % (0-3) Neutrophils # (Auto) 7.9 x10^3uL (1.8-7.7) Lymphocytes # (Auto) 1.0 x10^3/uL (1.0-4.8) Monocytes # (Auto) 1.1 x10^3/uL (0.0-1.1) Eosinophils # (Auto) 0.1 x10^3/uL (0.0-0.7) Basophils # (Auto) 0.1 x10^3/uL (0.0-0.2) Segmented Neutrophils % 72 % (35-66) Lymphocytes % 13 % (24-48) Monocytes % 15 % (0-10) Nucleated Red Blood Cells 1 Platelet Estimate Adequate (ADEQUATE) Polychromasia Slight Anisocytosis Slight Sodium Level 147 mmol/L (136-145) Potassium Level 3.5 mmol/L (3.5-5.1) Chloride Level 108 mmol/L (98-107) Carbon Dioxide Level 29 mmol/L (21-32) Anion Gap 10 (6-14) Blood Urea Nitrogen 33 mg/dL (8-26) Creatinine 2.9 mg/dL (0.7-1.3) Estimated GFR (Cockcroft-Gault) 21.4 BUN/Creatinine Ratio 11 (6-20) Glucose Level 92 mg/dL (70-99) Calcium Level 8.7 mg/dL (8.5-10.1) Phosphorus Level 3.2 mg/dL (2.6-4.7) Magnesium Level 2.0 mg/dL (1.8-2.4) Total Bilirubin 0.6 mg/dL (0.2-1.0) Aspartate Amino Transf (AST/SGOT) 18 U/L (15-37) Alanine Aminotransferase (ALT/SGPT) 12 U/L (16-63) Alkaline Phosphatase 80 U/L (46-116) Total Protein 5.7 g/dL (6.4-8.2) Albumin 2.5 g/dL (3.4-5.0) Albumin/Globulin Ratio 0.8 (1.0-1.7) Glucose (Fingerstick) 97 mg/dL (70-99) Laboratory Tests Test 06/27/17 21:06 06/28/17 05:48 06/28/17 14:00 Glucose (Fingerstick) 142 mg/dL (70-99) 97 mg/dL (70-99) White Blood Count 10.2 x10^3/uL (4.0-11.0) Red Blood Count 3.12 x10^6/uL (4.30-5.70) Hemoglobin 9.7 g/dL (13.0-17.5) Hematocrit 30.2 % (39.0-53.0) Mean Corpuscular Volume 97 fL (79-100) Mean Corpuscular Hemoglobin 31 pg (25-35) Mean Corpuscular Hemoglobin Concent 32 g/dL (31-37) Red Cell Distribution Width 20.7 % (11.5-14.5) Platelet Count 200 x10^3/uL (140-400) Neutrophils (%) (Auto) 78 % (31-73) Lymphocytes (%) (Auto) 10 % (24-48) Monocytes (%) (Auto) 10 % (0-9) Eosinophils (%) (Auto) 1 % (0-3) Basophils (%) (Auto) 1 % (0-3) Neutrophils # (Auto) 7.9 x10^3uL (1.8-7.7) Lymphocytes # (Auto) 1.0 x10^3/uL (1.0-4.8) Monocytes # (Auto) 1.1 x10^3/uL (0.0-1.1) Eosinophils # (Auto) 0.1 x10^3/uL (0.0-0.7) Basophils # (Auto) 0.1 x10^3/uL (0.0-0.2) Segmented Neutrophils % 72 % (35-66) Lymphocytes % 13 % (24-48) Monocytes % 15 % (0-10) Nucleated Red Blood Cells 1 Platelet Estimate Adequate (ADEQUATE) Polychromasia Slight Anisocytosis Slight Sodium Level 147 mmol/L (136-145) Potassium Level 3.5 mmol/L (3.5-5.1) Chloride Level 108 mmol/L (98-107) Carbon Dioxide Level 29 mmol/L (21-32) Anion Gap 10 (6-14) Blood Urea Nitrogen 33 mg/dL (8-26) Creatinine 2.9 mg/dL (0.7-1.3) Estimated GFR (Cockcroft-Gault) 21.4 BUN/Creatinine Ratio 11 (6-20) Glucose Level 92 mg/dL (70-99) Calcium Level 8.7 mg/dL (8.5-10.1) Phosphorus Level 3.2 mg/dL (2.6-4.7) Magnesium Level 2.0 mg/dL (1.8-2.4) Total Bilirubin 0.6 mg/dL (0.2-1.0) Aspartate Amino Transf (AST/SGOT) 18 U/L (15-37) Alanine Aminotransferase (ALT/SGPT) 12 U/L (16-63) Alkaline Phosphatase 80 U/L (46-116) Total Protein 5.7 g/dL (6.4-8.2) Albumin 2.5 g/dL (3.4-5.0) Albumin/Globulin Ratio 0.8 (1.0-1.7) Medications Active Scripts Medications Dose Route/Sig Max Daily Dose Days Date Category Amlodipine Besylate 5 Mg Tablet 10 Mg PO DAILY 06/22/17 Reported Azathioprine 50 Mg Tablet 4 Tab PO DAILY 06/22/17 Reported Docusate Sodium 100 Mg Capsule 1 Cap PO TID PRN PRN 06/22/17 Reported Ferrous Sulfate 325 Mg Tablet 1 Tab PO BIDAC 06/22/17 Reported Ondansetron Hcl 4 Mg Tablet 1 Tab PO PRN Q8HRS PRN 06/22/17 Reported Prednisone 10 Mg Tablet 5 Mg PO DAILY 06/22/17 Reported Thiamine Hcl 100 Mg Tablet 100 Mg PO 06/22/17 Reported Nystatin-Triamcinolone Cream (Nystatin/Triamcin) 15 Gm Cream..g. 1 Alexis TP BID 06/22/17 Reported Pantoprazole Sodium 40 Mg Tablet.dr 1 Tab PO DAILY 06/22/17 Reported Tacrolimus 0.5 Mg Capsule 0.5 Mg PO DAILY 06/22/17 Reported Tylenol (Acetaminophen) 325 Mg Tablet 1 Tab PO PRN Q6HRS PRN 06/22/17 Reported Haloperidol 0.5 Mg Tablet 0.25 Mg PO PRN Q8HRS PRN 06/22/17 Reported Metoprolol Tartrate 50 Mg Tablet 3 Tab PO BID 06/22/17 Reported Keflex (Cephalexin) 500 Mg Capsule 500 Mg PO QID 5 06/30/15 Rx Novolog Flexpen (Insulin Aspart) 100 Unit/1 Ml Insuln.pen 22 Unit SQ AC SUPPER 06/26/15 Reported Novolog Flexpen (Insulin Aspart) 100 Unit/1 Ml Insuln.pen 18 Unit SQ AC LUNCH 06/26/15 Reported Novolog Flexpen (Insulin Aspart) 100 Unit/1 Ml Insuln.pen 10 Unit SQ AC BREAKFAST 06/26/15 Reported Levothyroxine Sodium 88 Mcg Tablet 1 Tab PO DAILY 06/24/15 Reported Atorvastatin Calcium 10 Mg Tablet 1 Tab PO DAILY 06/24/15 Reported Loratadine 10 Mg Tablet 1 Tab PO DAILY 06/24/15 Reported Hydrochlorothiazide Tablet (Hydrochlorothiazide) 25 Mg Tablet 25 Mg PO DAILY 06/24/15 Reported Pepcid Ac (Famotidine) 20 Mg Tablet 20 Mg PO HS 06/24/15 Reported Tacrolimus 1 Mg Capsule 1 Mg PO BID 06/24/15 Reported Men's Multivitamin Gummies (Folic Acid/Multivit-Minerals) 200 Mcg Tab.chew 200 Mcg PO 06/24/15 Reported Aspirin 81 Mg Tab.chew 1 Tab PO DAILY 06/24/15 Reported Lantus (Insulin Glargine,Hum.rec.anlog) 100 Unit/1 Ml Vial 70 Unit SQ QHS 06/24/15 Reported Alendronate Sodium 70 Mg Tablet 70 Mg PO WEEKLY 06/24/15 Reported Impression . 1. Acute hypercapnic respiratory failure secondary to multifactorial in nature 2. Abnormal ct chest with moderate effusions/ some aspirated gastro graffin 3. Renal transplant and acute kidney injury 4. Methicillin-resistant Staphylococcus aureus infection. 5. Hypernatremia 6. Severe protein-calorie malnutrition POA 7. Morbid obesity 8. Suspect B[facility]/OHS 9. Acute/Chronic Cor Pulmonale 10. Chronic Lower Ext Lymphedema 11. Bilateral effusion CT Impression: 1. Moderate bilateral pleural effusions with passive atelectasis of the adjacent lung parenchymal. Underlying pneumonia not ruled out. 2. No interlobular septal thickening in the aerated lungs to suggest pulmonary edema. 3. Nodular high attenuation in the bilateral lower lobes may represent parenchymal calcifications or aspirated oral contrast from previous studies. Plan . EXTUBATE SEVERAL DAYS AGO HARD TO TELLL HOW MUCH EFFUSION HE HAS WILL REPEAT CT OF CHEST D/W DR GALAVIZ WILL DEFER TO HIM HE HAS BEEN IN HOSPITAL FOR OVE 3 MONTHS, CHANGE OF RETURNING TO NORMAL ACTIVITY FOR HIM IS SLIM TO NONE SPOKE WITH MULTIPLE FAMILY MEMBERS AT BEDSIDE SHARATH VALLE MD Jun 28, 2017 18:12
[2017-06-28] MEDS: FAMOTIDINE 20 MG TABLET. PO SCH (20:35)
[2017-06-28] MEDS: INSULIN DETEMIR 300 UNITS/3 ML INSULN.PEN. SQ SCH (21:00)
[2017-06-29] VITALS (30 sets, daily range): BP systolic 106–188; BP diastolic 14–86
[2017-06-29] MEDS: hydrALAZINE 20 MG/ML VIAL. IVP PRN (02:54)
[2017-06-29] MEDS: NYSTATIN TOPICAL POWDER 15GM BOTTLE. TP SCH ×3 (02:56→21:07)
[2017-06-29 07:21] LABS: ALBUMIN 3.5 g/dL (3.4-5.0); CALCIUM 8.8 mg/dL (8.5-10.1); CREATININE 2.7 mg/dL (0.7-1.3); GFR 23.2; PHOSPHORUS 3.6 mg/dL (2.6-4.7); POTASSIUM 3.5 mmol/L (3.5-5.1)
[2017-06-29 07:24] LABS: BASO % 0 % (0-3); EOS % 1 % (0-3); HEMOGLOBIN 7.6 g/dL (13.0-17.5); LYMPH # 0.8 x10^3/uL (1.0-4.8); LYMPH % 12 % (24-48); MEAN CORPUSCULAR HEMOGLOBIN 31 pg (25-35); MEAN CORPUSCULAR HGB CONC 32 g/dL (31-37); MEAN CORPUSCULAR VOLUME 99 fL (79-100); MONO % 10 % (0-9); NEUT % 77 % (31-73); PLATELET COUNT 163 x10^3/uL (140-400); RED BLOOD COUNT 2.43 x10^6/uL (4.30-5.70); RED CELL DISTRIBUTION WIDTH 21.1 % (11.5-14.5); WHITE BLOOD COUNT 6.6 x10^3/uL (4.0-11.0)
[2017-06-29] MEDS: ISOSORBIDE MONONITRATE ER 30 MG TAB.ER.24H PO SCH (07:34)
--- NOTE | 2017-06-29 07:43 | RAD ---
CT of the chest without contrast, 06/28/2017: History: Respiratory distress, pleural effusions Comparison is made to a study from 06/22/2017. There are ongoing moderate sized bilateral pleural effusions, similar to those seen on 06/22/2017. There is nearly complete atelectasis of the left lower lobe and moderate atelectasis of the right lower lobe. High attenuation areas are again noted in both lower lobes suggesting parenchymal calcifications versus old aspirated material. There is mild atelectasis posteriorly in the upper lobes. There is moderate interlobular septal thickening in the aerated portions of the upper lobes compatible with interstitial edema. There is no evidence of pneumothorax. Extensive aortic calcific plaquing is present. There are extensive coronary artery calcifications as well. The heart is generally enlarged. No mediastinal adenopathy is seen. An NG tube extends into the stomach. IMPRESSION: 1. Ongoing moderate sized bilateral pleural effusions with considerable underlying atelectasis, worse in the lower lobes. 2. Moderate bilateral interlobular septal thickening compatible with interstitial pulmonary edema. 3. Extensive calcific plaquing of the aorta and coronary arteries. PQRS Compliance Statement: One or more of the following individualized dose reduction techniques were utilized for this examination: 1. Automated exposure control 2. Adjustment of the mA and/or kV according to patient size 3. Use of iterative reconstruction technique
--- NOTE | 2017-06-29 09:47 | PDOC ---
PROGRESS NOTES Subjective Subjective full note dictated # [id number] Objective Objective Vital Signs Date Time Temp Pulse Resp B/P (MAP) Pulse Ox O2 Delivery O2 Flow Rate FiO2 06/29/17 06:34 113/31 (58) 06/29/17 06:00 74 15 100 BiPAP/CPAP 06/29/17 04:00 97.6 97.6 06/28/17 21:00 3.0 Intake and Output 06/29/17 07:00 Intake Total 3934 ml Output Total 1135 ml Balance 2799 ml IV Total 481 ml Tube Feeding 2203 ml Other 1250 ml Output Urine Total 1135 ml Assessment Assessment Problems Medical Problems: (1) Acute encephalopathy Status: Acute (2) Pulmonary edema Status: Acute (3) Respiratory acidosis Status: Acute Comment Review of Relevant I have reviewed the following items buzz (where applicable) has been applied. Labs Laboratory Tests Test 06/27/17 16:30 06/27/17 21:06 06/28/17 05:48 06/28/17 14:00 Urine Random Sodium 63 mmol/L (Not Estab.) Glucose (Fingerstick) 142 mg/dL (70-99) 97 mg/dL (70-99) White Blood Count 10.2 x10^3/uL (4.0-11.0) Red Blood Count 3.12 x10^6/uL (4.30-5.70) Hemoglobin 9.7 g/dL (13.0-17.5) Hematocrit 30.2 % (39.0-53.0) Mean Corpuscular Volume 97 fL (79-100) Mean Corpuscular Hemoglobin 31 pg (25-35) Mean Corpuscular Hemoglobin Concent 32 g/dL (31-37) Red Cell Distribution Width 20.7 % (11.5-14.5) Platelet Count 200 x10^3/uL (140-400) Neutrophils (%) (Auto) 78 % (31-73) Lymphocytes (%) (Auto) 10 % (24-48) Monocytes (%) (Auto) 10 % (0-9) Eosinophils (%) (Auto) 1 % (0-3) Basophils (%) (Auto) 1 % (0-3) Neutrophils # (Auto) 7.9 x10^3uL (1.8-7.7) Lymphocytes # (Auto) 1.0 x10^3/uL (1.0-4.8) Monocytes # (Auto) 1.1 x10^3/uL (0.0-1.1) Eosinophils # (Auto) 0.1 x10^3/uL (0.0-0.7) Basophils # (Auto) 0.1 x10^3/uL (0.0-0.2) Segmented Neutrophils % 72 % (35-66) Lymphocytes % 13 % (24-48) Monocytes % 15 % (0-10) Nucleated Red Blood Cells 1 Platelet Estimate Adequate (ADEQUATE) Polychromasia Slight Anisocytosis Slight Sodium Level 147 mmol/L (136-145) Potassium Level 3.5 mmol/L (3.5-5.1) Chloride Level 108 mmol/L (98-107) Carbon Dioxide Level 29 mmol/L (21-32) Anion Gap 10 (6-14) Blood Urea Nitrogen 33 mg/dL (8-26) Creatinine 2.9 mg/dL (0.7-1.3) Estimated GFR (Cockcroft-Gault) 21.4 BUN/Creatinine Ratio 11 (6-20) Glucose Level 92 mg/dL (70-99) Calcium Level 8.7 mg/dL (8.5-10.1) Phosphorus Level 3.2 mg/dL (2.6-4.7) Magnesium Level 2.0 mg/dL (1.8-2.4) Total Bilirubin 0.6 mg/dL (0.2-1.0) Aspartate Amino Transf (AST/SGOT) 18 U/L (15-37) Alanine Aminotransferase (ALT/SGPT) 12 U/L (16-63) Alkaline Phosphatase 80 U/L (46-116) Total Protein 5.7 g/dL (6.4-8.2) Albumin 2.5 g/dL (3.4-5.0) Albumin/Globulin Ratio 0.8 (1.0-1.7) Test 06/28/17 18:20 06/28/17 21:48 06/29/17 05:00 06/29/17 06:15 Glucose (Fingerstick) 129 mg/dL (70-99) 106 mg/dL (70-99) Sodium Level 148 mmol/L (136-145) Potassium Level 3.5 mmol/L (3.5-5.1) Chloride Level 108 mmol/L (98-107) Carbon Dioxide Level 30 mmol/L (21-32) Anion Gap 10 (6-14) Blood Urea Nitrogen 36 mg/dL (8-26) Creatinine 2.7 mg/dL (0.7-1.3) Estimated GFR (Cockcroft-Gault) 23.2 Glucose Level 99 mg/dL (70-99) Calcium Level 8.8 mg/dL (8.5-10.1) Phosphorus Level 3.6 mg/dL (2.6-4.7) Albumin 3.5 g/dL (3.4-5.0) White Blood Count 6.6 x10^3/uL (4.0-11.0) Red Blood Count 2.43 x10^6/uL (4.30-5.70) Hemoglobin 7.6 g/dL (13.0-17.5) Hematocrit 24.0 % (39.0-53.0) Mean Corpuscular Volume 99 fL (79-100) Mean Corpuscular Hemoglobin 31 pg (25-35) Mean Corpuscular Hemoglobin Concent 32 g/dL (31-37) Red Cell Distribution Width 21.1 % (11.5-14.5) Platelet Count 163 x10^3/uL (140-400) Neutrophils (%) (Auto) 77 % (31-73) Lymphocytes (%) (Auto) 12 % (24-48) Monocytes (%) (Auto) 10 % (0-9) Eosinophils (%) (Auto) 1 % (0-3) Basophils (%) (Auto) 0 % (0-3) Neutrophils # (Auto) 5.1 x10^3uL (1.8-7.7) Lymphocytes # (Auto) 0.8 x10^3/uL (1.0-4.8) Monocytes # (Auto) 0.7 x10^3/uL (0.0-1.1) Eosinophils # (Auto) 0.1 x10^3/uL (0.0-0.7) Basophils # (Auto) 0.0 x10^3/uL (0.0-0.2) Laboratory Tests Test 06/28/17 14:00 06/28/17 18:20 06/28/17 21:48 06/29/17 05:00 Glucose (Fingerstick) 97 mg/dL (70-99) 129 mg/dL (70-99) 106 mg/dL (70-99) Sodium Level 148 mmol/L (136-145) Potassium Level 3.5 mmol/L (3.5-5.1) Chloride Level 108 mmol/L (98-107) Carbon Dioxide Level 30 mmol/L (21-32) Anion Gap 10 (6-14) Blood Urea Nitrogen 36 mg/dL (8-26) Creatinine 2.7 mg/dL (0.7-1.3) Estimated GFR (Cockcroft-Gault) 23.2 Glucose Level 99 mg/dL (70-99) Calcium Level 8.8 mg/dL (8.5-10.1) Phosphorus Level 3.6 mg/dL (2.6-4.7) Albumin 3.5 g/dL (3.4-5.0) Test 06/29/17 06:15 White Blood Count 6.6 x10^3/uL (4.0-11.0) Red Blood Count 2.43 x10^6/uL (4.30-5.70) Hemoglobin 7.6 g/dL (13.0-17.5) Hematocrit 24.0 % (39.0-53.0) Mean Corpuscular Volume 99 fL (79-100) Mean Corpuscular Hemoglobin 31 pg (25-35) Mean Corpuscular Hemoglobin Concent 32 g/dL (31-37) Red Cell Distribution Width 21.1 % (11.5-14.5) Platelet Count 163 x10^3/uL (140-400) Neutrophils (%) (Auto) 77 % (31-73) Lymphocytes (%) (Auto) 12 % (24-48) Monocytes (%) (Auto) 10 % (0-9) Eosinophils (%) (Auto) 1 % (0-3) Basophils (%) (Auto) 0 % (0-3) Neutrophils # (Auto) 5.1 x10^3uL (1.8-7.7) Lymphocytes # (Auto) 0.8 x10^3/uL (1.0-4.8) Monocytes # (Auto) 0.7 x10^3/uL (0.0-1.1) Eosinophils # (Auto) 0.1 x10^3/uL (0.0-0.7) Basophils # (Auto) 0.0 x10^3/uL (0.0-0.2) Medications Current Medications Etomidate (Amidate) 20 mg STK-MED ONCE IV ; Start 06/22/17 at 05:47; Stop at 05:48; Status DC Rocuronium [place] (Zemuron) 50 mg STK-MED ONCE .ROUTE ; Start 06/22/17 at 05:48 ; Stop 06/22/17 at 05:49; Status DC Propofol 50 ml @ As Directed STK-MED ONCE IV ; Start 06/22/17 at 06:15; Stop at 06:16; Status DC Propofol 100 ml @ 0 mls/hr CONT PRN IV SEE I/O RECORD Last administered on 06/25 03:20; Start 06/22/17 at 06:30 Ondansetron HCl (Zofran) 4 mg PRN Q8HRS PRN IV NAUSEA/VOMITING; Start 06/22/17 at 06:45; Stop 06/23/17 at 06:44; Status DC Fentanyl Citrate (Fentanyl 2ml Vial) 50 mcg PRN Q1HR PRN IV PAIN Last administered on 06/22/17 07:04; Start 06/22/17 at 06:45; Stop 06/23/17 at 06:44 ; Status DC Sodium Chloride 1,000 ml @ 75 mls/hr [id number] IV ; Start 06/22/17 at 06:45; Stop 06/22/17 at 19:47; Status DC Acetaminophen (Tylenol) 650 mg PRN Q4HRS PRN PO FEVER; Start 06/22/17 at 06:45 ; Stop 06/23/17 at 06:44; Status DC Midazolam HCl (Versed) 2 mg STK-MED ONCE .ROUTE ; Start 06/22/17 at 07:17; Stop 06/22/17 at 07:18; Status DC Midazolam HCl 100 ml @ 0 mls/hr CONT PRN IV SEE I/O RECORD Last administered on 06/22/17 23:38; Start 06/22/17 at 07:30 Midazolam HCl (Versed) 2 mg 1X ONCE IV Last administered on 06/22/17 07:30; Start 06/22/17 at 07:30; Stop 06/22/17 at 07:31; Status DC Norepinephrine Bitartrate 250 ml @ As Directed STK-MED ONCE IV ; Start at 08:27; Stop 06/22/17 at 08:28; Status DC Norepinephrine Bitartrate 250 ml @ 0 mls/hr CONT PRN IV SEE I/O RECORD Last administered on 06/22/17 13:02; Start 06/22/17 at 08:30 Sodium Chloride 1,000 ml @ 125 mls/hr Q8H IV Last administered on 06/23/17 08 :21; Start 06/22/17 at 11:00; Stop 06/23/17 at 14:28; Status DC Sodium Chloride 1,000 ml @ 999 mls/hr 1X ONCE IV Last administered on 14:32; Start 06/22/17 at 10:45; Stop 06/22/17 at 11:45; Status DC Vancomycin HCl (Vanco Per Pharmacy) 1 each PRN DAILY PRN MC SEE COMMENTS Last administered on 06/26/17 15:34; Start 06/22/17 at 11:00; Stop 06/27/17 at 14:42 ; Status DC Piperacillin Sod/ Tazobactam Sod (Zosyn Per Pharmacy) 1 each PRN DAILY PRN MC SEE COMMENTS; Start 06/22/17 at 11:00; Stop 06/26/17 at 08:38; Status DC Aspirin (Children'S Aspirin) 81 mg DAILY PO Last administered on 06/28/17 09: 30; Start 06/22/17 at 12:00 Atorvastatin Calcium (Lipitor) 10 mg DAILY PO Last administered on 06/28/17 09 :30; Start 06/22/17 at 12:00 Azathioprine (Imuran) 50 mg DAILY PO Last administered on 06/28/17 09:30; Start 06/22/17 at 12:00 Famotidine (Pepcid) 20 mg HS PO Last administered on 06/28/17 20:35; Start at 21:00 Levothyroxine Sodium (Synthroid) 88 mcg DAILYAC PO Last administered on 09:30; Start 06/22/17 at 12:00 Prednisone (Prednisone) 20 mg DAILY PO Last administered on 06/28/17 09:30; Start 06/22/17 at 12:00 Insulin Detemir (Levemir) 70 units QHS SQ ; Start 06/22/17 at 21:00; Stop at 21:10; Status DC Cetirizine HCl (ZyrTEC) 10 mg DAILY PO Last administered on 06/28/17 09:30; Start 06/22/17 at 12:00 Metoprolol Tartrate (Lopressor) 100 mg BID PO ; Start 06/22/17 at 12:00; Stop 06/22/17 at 18:33; Status DC Tacrolimus (Prograf) 1 mg BID PO Last administered on 06/28/17 20:36; Start 06/22/17 at 12:00 Vancomycin HCl 2 gm/Dextrose/ Sodium Chloride 500 ml @ 250 mls/hr 1X ONCE IV Last administered on 06/22/17 13:04; Start 06/22/17 at 11:30; Stop 06/22/17 at 13:29; Status DC Piperacillin Sod/ Tazobactam Sod (Zosyn) 4.5 gm Q6HRS IVP Last administered on 06/27/17 05:51; Start 06/22/17 at 12:00; Stop 06/27/17 at 14:37; Status DC Vancomycin HCl 2 gm/Dextrose/ Sodium Chloride 500 ml @ 250 mls/hr Q24H IV ; Start 06/23/17 at 13:00; Stop 06/23/17 at 13:00; Status DC Vancomycin HCl 1 each 1X ONCE MC Last administered on 06/24/17 12:30; Start 06/24/17 at 12:30; Stop 06/24/17 at 12:31; Status DC Metoprolol Tartrate (Lopressor) 50 mg BID PO Last administered on 06/28/17 20: 36; Start 06/22/17 at 21:00 Albumin Human 200 ml @ 100 mls/hr TID IV Last administered on 06/22/17 20:44 ; Start 06/22/17 at 21:00; Stop 06/23/17 at 02:42; Status DC Insulin Detemir (Levemir) 70 units QHS SQ Last administered on 06/24/17 21:53 ; Start 06/23/17 at 21:00; Stop 06/25/17 at 10:40; Status DC Insulin Detemir (Levemir) 30 units 1X ONCE SQ Last administered on 06/22/17 21:18; Start 06/22/17 at 21:15; Stop 06/22/17 at 21:16; Status DC Albumin Human 200 ml @ 100 mls/hr TID IV ; Start 06/23/17 at 03:00; Stop at 03:00; Status DC Albumin Human 200 ml @ 100 mls/hr Q6HRS IV Last administered on 06/24/17 05: 47; Start 06/23/17 at 06:00; Stop 06/24/17 at 07:59; Status DC Vancomycin HCl 2 gm/Dextrose/ Sodium Chloride 500 ml @ 250 mls/hr Q24H IV Last administered on 06/24/17 14:43; Start 06/23/17 at 13:00; Stop 06/25/17 at 08:36; Status DC Magnesium Sulfate/ Dextrose 50 ml @ 25 mls/hr PRN DAILY PRN IV for Mag < 1.7 on am labs Last administered on 06/25/17 10:43; Start 06/23/17 at 14:30 Fentanyl Citrate (Fentanyl 2ml Vial) 25 mcg PRN Q4HRS PRN IV PAIN Last administered on 06/23/17 18:35; Start 06/23/17 at 15:45 Magnesium Sulfate/ Dextrose 50 ml @ 25 mls/hr 1X ONCE IV Last administered on 06/24/17 06:32; Start 06/24/17 at 06:30; Stop 06/24/17 at 08:29; Status DC Potassium Phosphate 13.6 mmol/Sodium Chloride 104.5333 ml @ 52.267 m... Q2H IV Last administered on 06/24/17 18:07; Start 06/24/17 at 11:00; Stop 06/24/17 at 16:59; Status DC Furosemide (Lasix) 20 mg 1X ONCE IVP Last administered on 06/24/17 12:59; Start 06/24/17 at 11:15; Stop 06/24/17 at 11:16; Status DC Dextrose (Dextrose 50%-Water Syringe) 25 gm STK-MED ONCE IV ; Start 06/25/17 at 05:58; Stop 06/25/17 at 05:59; Status DC Dextrose (Dextrose 50%-Water Syringe) 12.5 gm PRN Q15MIN PRN IV SEE COMMENTS Last administered on 06/27/17 09:49; Start 06/25/17 at 06:15 Chlorhexidine Gluconate (Peridex) 15 ml BID SWSP ; Start 06/25/17 at 21:00; Stop 06/26/17 at 08:42; Status DC Vancomycin HCl 2 gm/Dextrose/ Sodium Chloride 500 ml @ 250 mls/hr Q48H IV Last administered on 06/26/17 13:17; Start 06/26/17 at 13:00; Stop 06/27/17 at 14:37; Status DC Insulin Detemir (Levemir) 55 units QHS SQ Last administered on 06/27/17 21:06 ; Start 06/25/17 at 21:00 Enoxaparin Sodium (Lovenox 40mg Syringe) 40 mg BID SQ Last administered on 06/28 09:33; Start 06/25/17 at 12:00; Stop 06/28/17 at 10:04; Status DC Nystatin (Nystop) 1 alexis BID TP Last administered on 06/29/17 02:56; Start 06/25/17 at 21:00 Isosorbide Mononitrate (Imdur) 30 mg DAILY PO ; Start 06/26/17 at 09:00 Amino Acids/ Glycerin/ Electrolytes 1,000 ml @ 80 mls/hr [id number] IV ; Start at 09:15; Stop 06/26/17 at 10:44; Status DC Sodium Chloride 500 ml @ 250 mls/hr 1X ONCE IV Last administered on 23:30; Start 06/26/17 at 23:45; Stop 06/27/17 at 01:44; Status DC Sodium Chloride 250 ml @ 250 mls/hr 1X ONCE IV Last administered on 03:00; Start 06/27/17 at 03:15; Stop 06/27/17 at 04:14; Status DC Sodium Chloride 500 ml @ 500 mls/hr 1X ONCE IV Last administered on 08:00; Start 06/27/17 at 08:00; Stop 06/27/17 at 10:39; Status DC Warfarin Sodium (Coumadin) 8 mg DAILY16 PO ; Start 06/27/17 at 16:00; Status Cancel Hydralazine HCl (Apresoline Inj) 10 mg PRN Q4HRS PRN IVP ELEVATED BP, SEE COMMENTS Last administered on 06/29/17 02:54; Start 06/27/17 at 20:00 Albumin Human 200 ml @ 100 mls/hr Q6H IV Last administered on 06/28/17 20:35 ; Start 06/28/17 at 09:00; Stop 06/28/17 at 22:59; Status DC Hydralazine HCl (Apresoline Inj) 10 mg PRN Q4HRS PRN IVP ELEVATED BP, SEE COMMENTS; Start 06/28/17 at 09:30 Enoxaparin Sodium (Lovenox 40mg Syringe) 40 mg DAILY SQ ; Start 06/29/17 at 09: 00 Nitroglycerin/ Dextrose 250 ml @ 0 mls/hr CONT PRN IV SEE I/O RECORD Last administered on 06/28/17 18:17; Start 06/28/17 at 18:00 Active Scripts Active Keflex (Cephalexin) 500 Mg Capsule 500 Mg PO QID 5 Days Reported Amlodipine Besylate 5 Mg Tablet 10 Mg PO DAILY Azathioprine 50 Mg Tablet 4 Tab PO DAILY Docusate Sodium 100 Mg Capsule 1 Cap PO TID PRN PRN Ferrous Sulfate 325 Mg Tablet 1 Tab PO BIDAC Ondansetron Hcl 4 Mg Tablet 1 Tab PO PRN Q8HRS PRN Prednisone 10 Mg Tablet 5 Mg PO DAILY Thiamine Hcl 100 Mg Tablet 100 Mg PO Nystatin-Triamcinolone Cream (Nystatin/Triamcin) 15 Gm Cream..g. 1 Alexis TP BID Pantoprazole Sodium 40 Mg Tablet.dr 1 Tab PO DAILY Tacrolimus 0.5 Mg Capsule 0.5 Mg PO DAILY Tylenol (Acetaminophen) 325 Mg Tablet 1 Tab PO PRN Q6HRS PRN Haloperidol 0.5 Mg Tablet 0.25 Mg PO PRN Q8HRS PRN Metoprolol Tartrate 50 Mg Tablet 3 Tab PO BID Novolog Flexpen (Insulin Aspart) 100 Unit/1 Ml Insuln.pen 22 Unit SQ AC SUPPER Novolog Flexpen (Insulin Aspart) 100 Unit/1 Ml Insuln.pen 18 Unit SQ AC LUNCH Novolog Flexpen (Insulin Aspart) 100 Unit/1 Ml Insuln.pen 10 Unit SQ AC BREAKFAST Levothyroxine Sodium 88 Mcg Tablet 1 Tab PO DAILY Atorvastatin Calcium 10 Mg Tablet 1 Tab PO DAILY Loratadine 10 Mg Tablet 1 Tab PO DAILY Hydrochlorothiazide Tablet (Hydrochlorothiazide) 25 Mg Tablet 25 Mg PO DAILY Pepcid Ac (Famotidine) 20 Mg Tablet 20 Mg PO HS Tacrolimus 1 Mg Capsule 1 Mg PO BID Men's Multivitamin Gummies (Folic Acid/Multivit-Minerals) 200 Mcg Tab.chew 200 Mcg PO Aspirin 81 Mg Tab.chew 1 Tab PO DAILY Lantus (Insulin Glargine,Hum.rec.anlog) 100 Unit/1 Ml Vial 70 Unit SQ QHS Alendronate Sodium 70 Mg Tablet 70 Mg PO WEEKLY Vitals/I & O Vital Sign - Last 24 Hours 06/28/17 06/28/17 06/28/17 06/28/17 10:00 11:00 12:00 12:00 Temp 97.6 97.6 Pulse 80 74 74 Resp 21 30 26 B/P (MAP) 162/69 (100) 174/70 (104) 173/74 (107) Pulse Ox 96 98 97 O2 Delivery Room Air Room Air Room Air Room Air 06/28/17 06/28/17 06/28/17 06/28/17 13:00 14:00 15:00 15:19 Pulse 82 76 80 79 Resp 30 36 29 B/P (MAP) 179/82 (114) 178/83 (114) 191/75 (113) 184/80 Pulse Ox 93 92 93 O2 Delivery Room Air Room Air Room Air 06/28/17 06/28/17 06/28/17 06/28/17 16:00 16:00 16:05 17:00 Temp 97.8 97.8 Pulse 80 84 Resp 26 23 B/P (MAP) 172/83 (112) 181/70 (107) Pulse Ox 100 100 100 O2 Delivery BiPAP/CPAP Bi-pap BiPAP/CPAP BiPAP/CPAP 06/28/17 06/28/17 06/28/17 06/28/17 17:10 17:30 18:00 19:00 Pulse 80 84 82 Resp 25 25 22 B/P (MAP) 192/74 (113) 183/83 (116) 179/67 (104) Pulse Ox 100 100 99 100 O2 Delivery BiPAP/CPAP BiPAP/CPAP BiPAP/CPAP BiPAP/CPAP 06/28/17 06/28/17 06/28/17 06/28/17 19:42 20:00 20:00 20:00 Temp 97.0 97.0 Pulse 83 82 Resp 19 B/P (MAP) 169/90 171/73 (105) Pulse Ox 100 99 O2 Delivery Bi-pap BiPAP/CPAP BiPAP/CPAP 06/28/17 06/28/17 06/28/17 06/28/17 20:36 21:00 22:00 22:45 Pulse 83 80 76 Resp 24 15 B/P (MAP) 161/77 165/81 (109) 159/58 (91) 182/69 (106) Pulse Ox 98 99 O2 Delivery Nasal Cannula BiPAP/CPAP O2 Flow Rate 3.0 06/28/17 06/28/17 06/28/17 06/29/17 23:00 23:16 23:30 00:00 Temp 98.1 98.1 Pulse 76 80 Resp 20 25 B/P (MAP) 154/65 (94) 175/66 (102) 166/77 (106) Pulse Ox 99 99 99 O2 Delivery BiPAP/CPAP BiPAP/CPAP BiPAP/CPAP 06/29/17 06/29/17 06/29/17 06/29/17 00:00 01:00 01:23 02:00 Pulse 82 78 Resp 19 18 B/P (MAP) 155/68 (97) 166/84 (111) Pulse Ox 100 100 100 O2 Delivery Bi-pap BiPAP/CPAP BiPAP/CPAP BiPAP/CPAP 06/29/17 06/29/17 06/29/17 06/29/17 02:54 03:00 03:22 04:00 Temp 97.6 97.6 Pulse 69 78 80 Resp 13 16 B/P (MAP) 178/70 153/67 (95) 159/58 (91) Pulse Ox 100 100 100 O2 Delivery BiPAP/CPAP BiPAP/CPAP BiPAP/CPAP 06/29/17 06/29/17 06/29/17 06/29/17 04:00 05:00 05:06 06:00 Pulse 73 74 Resp 11 15 B/P (MAP) 158/65 (96) 144/67 (92) Pulse Ox 100 100 100 O2 Delivery Bi-pap BiPAP/CPAP BiPAP/CPAP BiPAP/CPAP 06/29/17 06:34 B/P (MAP) 113/31 (58) Intake and Output 06/28/17 06/28/17 06/29/17 15:00 23:00 07:00 Intake Total 700 ml 1851 ml 1383 ml Output Total 450 ml 492 ml 193 ml Balance 250 ml 1359 ml 1190 ml Nutrition Consultation Dietary Evaluation: Recommendations by RD: Increase Calorie Intake, Add supplement feedings Comments: Diabetisource AC@goal rate 75 ml/hr w/200 ml water flushes q4 hrs or flushes per MD Expected Outcomes/Goals: TF tolerated at goal rate and providing > 60% est needs - met at times, ongoing Interpretation of weight loss: >7.5% in 3 months Malnutrition Findings: Food and Nutrition Intake (Mod: <75% est energy req 7days Malnutrition related to morbid: BMI>or equal to 40 Malnutrition related to morbid: Yes Weight Status: Morbidly Obese SCHUYLER GALAVIZ MD Jun 29, 2017 09:47
[2017-06-29] MEDS: predniSONE 20 MG TABLET PO SCH (10:04)
[2017-06-29] MEDS: CETIRIZINE HCL 10 MG TABLET. PO SCH (10:04)
[2017-06-29] MEDS: ASPIRIN CHEWABLE 81 MG TABLET. PO SCH (10:05)
[2017-06-29] MEDS: TACROLIMUS 1 MG CAPSULE PO SCH ×2 (10:05→20:56)
[2017-06-29] MEDS: LEVOTHYROXINE 88 MCG TABLET PO SCH (10:05)
[2017-06-29] MEDS: ATORVASTATIN CALCIUM 10 MG TABLET. PO SCH (10:05)
[2017-06-29] MEDS: azaTHIOprine 50 MG TABLET PO SCH (10:05)
[2017-06-29] MEDS: METOPROLOL TART IMMED RELEASE 50 MG TABLET. PO SCH ×2 (10:05→21:00)
[2017-06-29] MEDS: ENOXAPARIN 40 MG/0.4 ML SYRINGE. SQ SCH (10:06)
--- NOTE | 2017-06-29 11:36 | PDOC2 ---
PALLIATIVE CARE Palliative Care Note Palliative Care Patient on BiPap. Spoke with , son Francisco, daughter in-laws Discussed goals. wants to continue current treatment plan. Family states they feel he will improve with current treatment plan. states she will make any decisions about code status "at the time" Indicates patient does have AD, and will bring it "when she needs it" Encouraged family to follow patient choices. Family requests results of CT Scan of chest CT Chest 06/28 IMPRESSION: 1. Ongoing moderate sized bilateral pleural effusions with considerable underlying atelectasis, worse in the lower lobes. 2. Moderate bilateral interlobular septal thickening compatible with interstitial pulmonary edema. 3. Extensive calcific plaquing of the aorta and coronary arteries. Plan: Full Code. Continue current treatment plan. RIC DING Jun 29, 2017 11:36
--- NOTE | 2017-06-29 12:50 | PN ---
DATE: REASON FOR CONSULTATION: REJI/CKD, renal transplant. SUBJECTIVE: The patient responded to IV albumin yesterday with about 1100 mL urine output, however, now is again becoming oliguric. He was on BiPAP overnight. His and 2 [id number] are at bedside today. They have numerous questions including strongly insisting that I call [facility] for further direction on his care. REVIEW OF SYSTEMS: Negative. He continues to have diarrhea as reported by the nurse, he has a FMS in place. OBJECTIVE: VITAL SIGNS: Vital signs available to me show a temperature 97.6, pulse 73, blood pressure is 113/31, pulse ox of 100% on BiPAP. HEENT: Head is NC/AT. Sclerae and conjunctivae were normal. The patient on BiPAP. Mucous membranes slightly on the dry side. He has double chin. No active ear or nasal drainage. NECK: No JVD or JVP noted. I was unable to palpate thyromegaly. Neck appears to be supple. LUNGS: Clear to auscultation anteriorly with adequate air entry. Decreased air entry in bilateral bases, lying at 30 degrees. HEART: Heart sounds S1, S2, distant in nature. Cannot rule out underlying murmur. ABDOMEN: Morbidly obese, soft, nontender. Positive bowel sounds, with multiple skin folds. Unable to palpate right lower quadrant transplant. Unable to palpate hepatosplenomegaly. Positive bowel sounds with NG tube in place. External genitalia with Ralph in place. 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 Unable to palpate pulses in his feet given elephantiasis. He is able to move his upper extremities, but is very weak in his lower extremities and barely can lift his right leg above the bed. 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 No asterixis was noted. NEUROLOGIC: He is oriented to person and possibly to place, but not so much to time. LABORATORY DATA: Available to me from this morning shows a white count of 6.6, hemoglobin of 7.6, hematocrit of 24, platelet count of 163, 12% lymphocytes, 10% monocytes. Chemistry shows sodium of 148, potassium of 3.5, chloride of 108, carbon dioxide of 30, BUN 36, creatinine 2.7, GFR 23, not corrected for body size. Albumin 3.[address] chest done on 06/28 shows moderate ongoing bilateral pleural effusions with considerable underlying atelectasis, worse in the lower lobes, moderate bilateral interlobar septal thickening compatible with interstitial pulmonary edema. Extensive calcific plaquing of the aorta and coronary arteries. IMPRESSION, ASSESSMENT AND PLAN: 1. Element of acute renal failure in a renal transplant. 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 2. Chronic kidney disease stage 3/4. Per my discussion with [facility], his baseline creatinine has been 1.9-3.4 in the recent past. 3. Oliguria, this appears to be blood pressure and hemodynamic related. He seems to respond well to IV albumin, suggesting increased intravascular volume. However, his pulmonary status restricts extensive volume expansion. 4. Renal transplant, continue immunosuppression. 5. Renal masses, decrease Imuran as recommended by [facility]. He will need urologic evaluation as soon as possible. 6. Pleural effusion, consider thoracentesis. We will defer this to Pulmonary. 7. Hypernatremia. We will stop tube feeds. Continue fluid resuscitation to correct the same and diuresis. 8. Nutrition, has failed swallow in the past. We will need to reinitiate tube feeds at some point of time. 9. Edema, anasarca, appears to be much better at this time. 10. Kidney stone, previously seen on the CAT scan, not seen on ultrasound. He has hydronephrosis as noted on most recent ultrasound. I had an extensive meeting with the family, approximately 40 minutes. We discussed his initial ESRD, his CKD status. I also coordinated care with Dr. Sierra and Dr. Declan Carlisle at [facility] and Dr. Meyer through this timeframe. 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 Family thinks that he has not had adequate time to rehabilitate from the same. His is extremely insistent that I call [facility], which I did and discussed his care with Dr. Declan Carlisle. I have been recommended to diurese the patient and if dialysis becomes necessary, to proceed with the same. I have been instructed by the not to touch his transplant kidney for biopsy in the past, and it is felt per my discussion with Dr. Carlisle that he has chronic allograft nephropathy, and this may very well be his new baseline. I have offered the patient the option of dialysis if and when the time arises, and they are open to that at this time. They are awaiting recommendations from Pulmonary and Cardiology regarding the same. I was instructed to decrease his azathioprine given his renal tumors. This appears to have been done given the fact that he was on 100 of azathioprine at [facility] on last check. Hypertension, the patient may benefit from running MAPs in the 70s range to allow for adequate renal perfusion and urine output. Currently remains on a nitro drip for unknown reasons, pending evaluation by Cardiology. Per my discussion with Dr. Carlisle, it is felt that Prograf levels of 3.5-5 should be adequate for immunosuppression at this time given vintage of transplant and current ongoing issues with possible infection. SCHUYLER GALAVIZ MD DR: CAYLA/miriam JOB#: [id number] / [id number]
--- NOTE | 2017-06-29 13:42 | PDOC ---
PROGRESS NOTES Chief Complaint Chief Complaint Acute hypercarbic, hypoxic respiratory failure ASSESSMENT AND PLAN: 1. CHF exacerbation: no previous hx, poss driven by afib. echo on 06/22 with normal EF, pAP 52. CT with bilat effusions, suspected aspir PNA. on 3liters nc 2. Afib: rate controlled. cardiology following. apparently, family unaware of existing hx; per cardiology, pt has declined OAC in past 3. Aspir PNA: bilat with PO contrast in lower lungs. on broad spectrum Abx 4. Anemia: significant drop of 2+g since admit, now stable ~8.5. no obvious sign of massive bleeding. both urine and respir secretions pink. check OB stool poss chronic anemia (renal insufficiency, inflammation) with initial intravascular contraction 5. REJI on CKD3: s/p renal transplant. sl creat bump 2/2 vasomotor etiologies. essentially stable. nephrology following 6. Immunocompromise: on mult immunosuppressants post renal transplant 7. HTN: borderline control on BB. BEATA-I/ARB is ok by nephrology 8. DM2: currently tight control with home levemir dose. decrease some monitor with ISS 9. BEVERLY: on CPAP at home, not in SNF over past 2 weeks 10. Nutrition: NG 11. Prophylaxis: H2B, lovenox 12. MOD AI and pulmonary hypertension 13. severe lymphedema and dermatitis right leg 14. hypoxic respiratory failure requiring mechanical intubation 15. pulmonary edema 16. 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 3 plus pitting edema Skin: Other (chronic venous stasis changes) urine output better with iv albumin General: Alert, No acute distress Heart: Other (AFIB rate controlled; distant heart sounds) Lungs: Clear, Crackles Abdomen: Soft, Other (obese) Extremities: Other ( s/p L AKA) Skin: Other (chronic venous stasis changes) Labs LABS Laboratory Tests Test 06/28/17 14:00 06/28/17 18:20 06/28/17 21:48 06/29/17 05:00 Glucose (Fingerstick) 97 mg/dL (70-99) 129 mg/dL (70-99) 106 mg/dL (70-99) Sodium Level 148 mmol/L (136-145) Potassium Level 3.5 mmol/L (3.5-5.1) Chloride Level 108 mmol/L (98-107) Carbon Dioxide Level 30 mmol/L (21-32) Anion Gap 10 (6-14) Blood Urea Nitrogen 36 mg/dL (8-26) Creatinine 2.7 mg/dL (0.7-1.3) Estimated GFR (Cockcroft-Gault) 23.2 Glucose Level 99 mg/dL (70-99) Calcium Level 8.8 mg/dL (8.5-10.1) Phosphorus Level 3.6 mg/dL (2.6-4.7) Albumin 3.5 g/dL (3.4-5.0) Test 06/29/17 06:15 White Blood Count 6.6 x10^3/uL (4.0-11.0) Red Blood Count 2.43 x10^6/uL (4.30-5.70) Hemoglobin 7.6 g/dL (13.0-17.5) Hematocrit 24.0 % (39.0-53.0) Mean Corpuscular Volume 99 fL (79-100) Mean Corpuscular Hemoglobin 31 pg (25-35) Mean Corpuscular Hemoglobin Concent 32 g/dL (31-37) Red Cell Distribution Width 21.1 % (11.5-14.5) Platelet Count 163 x10^3/uL (140-400) Neutrophils (%) (Auto) 77 % (31-73) Lymphocytes (%) (Auto) 12 % (24-48) Monocytes (%) (Auto) 10 % (0-9) Eosinophils (%) (Auto) 1 % (0-3) Basophils (%) (Auto) 0 % (0-3) Neutrophils # (Auto) 5.1 x10^3uL (1.8-7.7) Lymphocytes # (Auto) 0.8 x10^3/uL (1.0-4.8) Monocytes # (Auto) 0.7 x10^3/uL (0.0-1.1) Eosinophils # (Auto) 0.1 x10^3/uL (0.0-0.7) Basophils # (Auto) 0.0 x10^3/uL (0.0-0.2) Assessment and Plan Assessmemt and Plan Problems Medical Problems: (1) Acute encephalopathy Status: Acute (2) Pulmonary edema Status: Acute (3) Respiratory acidosis Status: Acute Problems: Comment Review of Relevant I have reviewed the following items buzz (where applicable) has been applied. Labs Laboratory Tests Test 06/27/17 16:30 06/27/17 21:06 06/28/17 05:48 06/28/17 14:00 Urine Random Sodium 63 mmol/L (Not Estab.) Glucose (Fingerstick) 142 mg/dL (70-99) 97 mg/dL (70-99) White Blood Count 10.2 x10^3/uL (4.0-11.0) Red Blood Count 3.12 x10^6/uL (4.30-5.70) Hemoglobin 9.7 g/dL (13.0-17.5) Hematocrit 30.2 % (39.0-53.0) Mean Corpuscular Volume 97 fL (79-100) Mean Corpuscular Hemoglobin 31 pg (25-35) Mean Corpuscular Hemoglobin Concent 32 g/dL (31-37) Red Cell Distribution Width 20.7 % (11.5-14.5) Platelet Count 200 x10^3/uL (140-400) Neutrophils (%) (Auto) 78 % (31-73) Lymphocytes (%) (Auto) 10 % (24-48) Monocytes (%) (Auto) 10 % (0-9) Eosinophils (%) (Auto) 1 % (0-3) Basophils (%) (Auto) 1 % (0-3) Neutrophils # (Auto) 7.9 x10^3uL (1.8-7.7) Lymphocytes # (Auto) 1.0 x10^3/uL (1.0-4.8) Monocytes # (Auto) 1.1 x10^3/uL (0.0-1.1) Eosinophils # (Auto) 0.1 x10^3/uL (0.0-0.7) Basophils # (Auto) 0.1 x10^3/uL (0.0-0.2) Segmented Neutrophils % 72 % (35-66) Lymphocytes % 13 % (24-48) Monocytes % 15 % (0-10) Nucleated Red Blood Cells 1 Platelet Estimate Adequate (ADEQUATE) Polychromasia Slight Anisocytosis Slight Sodium Level 147 mmol/L (136-145) Potassium Level 3.5 mmol/L (3.5-5.1) Chloride Level 108 mmol/L (98-107) Carbon Dioxide Level 29 mmol/L (21-32) Anion Gap 10 (6-14) Blood Urea Nitrogen 33 mg/dL (8-26) Creatinine 2.9 mg/dL (0.7-1.3) Estimated GFR (Cockcroft-Gault) 21.4 BUN/Creatinine Ratio 11 (6-20) Glucose Level 92 mg/dL (70-99) Calcium Level 8.7 mg/dL (8.5-10.1) Phosphorus Level 3.2 mg/dL (2.6-4.7) Magnesium Level 2.0 mg/dL (1.8-2.4) Total Bilirubin 0.6 mg/dL (0.2-1.0) Aspartate Amino Transf (AST/SGOT) 18 U/L (15-37) Alanine Aminotransferase (ALT/SGPT) 12 U/L (16-63) Alkaline Phosphatase 80 U/L (46-116) Total Protein 5.7 g/dL (6.4-8.2) Albumin 2.5 g/dL (3.4-5.0) Albumin/Globulin Ratio 0.8 (1.0-1.7) Test 06/28/17 18:20 06/28/17 21:48 06/29/17 05:00 06/29/17 06:15 Glucose (Fingerstick) 129 mg/dL (70-99) 106 mg/dL (70-99) Sodium Level 148 mmol/L (136-145) Potassium Level 3.5 mmol/L (3.5-5.1) Chloride Level 108 mmol/L (98-107) Carbon Dioxide Level 30 mmol/L (21-32) Anion Gap 10 (6-14) Blood Urea Nitrogen 36 mg/dL (8-26) Creatinine 2.7 mg/dL (0.7-1.3) Estimated GFR (Cockcroft-Gault) 23.2 Glucose Level 99 mg/dL (70-99) Calcium Level 8.8 mg/dL (8.5-10.1) Phosphorus Level 3.6 mg/dL (2.6-4.7) Albumin 3.5 g/dL (3.4-5.0) White Blood Count 6.6 x10^3/uL (4.0-11.0) Red Blood Count 2.43 x10^6/uL (4.30-5.70) Hemoglobin 7.6 g/dL (13.0-17.5) Hematocrit 24.0 % (39.0-53.0) Mean Corpuscular Volume 99 fL (79-100) Mean Corpuscular Hemoglobin 31 pg (25-35) Mean Corpuscular Hemoglobin Concent 32 g/dL (31-37) Red Cell Distribution Width 21.1 % (11.5-14.5) Platelet Count 163 x10^3/uL (140-400) Neutrophils (%) (Auto) 77 % (31-73) Lymphocytes (%) (Auto) 12 % (24-48) Monocytes (%) (Auto) 10 % (0-9) Eosinophils (%) (Auto) 1 % (0-3) Basophils (%) (Auto) 0 % (0-3) Neutrophils # (Auto) 5.1 x10^3uL (1.8-7.7) Lymphocytes # (Auto) 0.8 x10^3/uL (1.0-4.8) Monocytes # (Auto) 0.7 x10^3/uL (0.0-1.1) Eosinophils # (Auto) 0.1 x10^3/uL (0.0-0.7) Basophils # (Auto) 0.0 x10^3/uL (0.0-0.2) Laboratory Tests Test 06/28/17 14:00 06/28/17 18:20 06/28/17 21:48 06/29/17 05:00 Glucose (Fingerstick) 97 mg/dL (70-99) 129 mg/dL (70-99) 106 mg/dL (70-99) Sodium Level 148 mmol/L (136-145) Potassium Level 3.5 mmol/L (3.5-5.1) Chloride Level 108 mmol/L (98-107) Carbon Dioxide Level 30 mmol/L (21-32) Anion Gap 10 (6-14) Blood Urea Nitrogen 36 mg/dL (8-26) Creatinine 2.7 mg/dL (0.7-1.3) Estimated GFR (Cockcroft-Gault) 23.2 Glucose Level 99 mg/dL (70-99) Calcium Level 8.8 mg/dL (8.5-10.1) Phosphorus Level 3.6 mg/dL (2.6-4.7) Albumin 3.5 g/dL (3.4-5.0) Test 06/29/17 06:15 White Blood Count 6.6 x10^3/uL (4.0-11.0) Red Blood Count 2.43 x10^6/uL (4.30-5.70) Hemoglobin 7.6 g/dL (13.0-17.5) Hematocrit 24.0 % (39.0-53.0) Mean Corpuscular Volume 99 fL (79-100) Mean Corpuscular Hemoglobin 31 pg (25-35) Mean Corpuscular Hemoglobin Concent 32 g/dL (31-37) Red Cell Distribution Width 21.1 % (11.5-14.5) Platelet Count 163 x10^3/uL (140-400) Neutrophils (%) (Auto) 77 % (31-73) Lymphocytes (%) (Auto) 12 % (24-48) Monocytes (%) (Auto) 10 % (0-9) Eosinophils (%) (Auto) 1 % (0-3) Basophils (%) (Auto) 0 % (0-3) Neutrophils # (Auto) 5.1 x10^3uL (1.8-7.7) Lymphocytes # (Auto) 0.8 x10^3/uL (1.0-4.8) Monocytes # (Auto) 0.7 x10^3/uL (0.0-1.1) Eosinophils # (Auto) 0.1 x10^3/uL (0.0-0.7) Basophils # (Auto) 0.0 x10^3/uL (0.0-0.2) Medications Current Medications Etomidate (Amidate) 20 mg STK-MED ONCE IV ; Start 06/22/17 at 05:47; Stop at 05:48; Status DC Rocuronium [place] (Zemuron) 50 mg STK-MED ONCE .ROUTE ; Start 06/22/17 at 05:48 ; Stop 06/22/17 at 05:49; Status DC Propofol 50 ml @ As Directed STK-MED ONCE IV ; Start 06/22/17 at 06:15; Stop at 06:16; Status DC Propofol 100 ml @ 0 mls/hr CONT PRN IV SEE I/O RECORD Last administered on 06/25 03:20; Start 06/22/17 at 06:30 Ondansetron HCl (Zofran) 4 mg PRN Q8HRS PRN IV NAUSEA/VOMITING; Start 06/22/17 at 06:45; Stop 06/23/17 at 06:44; Status DC Fentanyl Citrate (Fentanyl 2ml Vial) 50 mcg PRN Q1HR PRN IV PAIN Last administered on 06/22/17 07:04; Start 06/22/17 at 06:45; Stop 06/23/17 at 06:44 ; Status DC Sodium Chloride 1,000 ml @ 75 mls/hr [id number] IV ; Start 06/22/17 at 06:45; Stop 06/22/17 at 19:47; Status DC Acetaminophen (Tylenol) 650 mg PRN Q4HRS PRN PO FEVER; Start 06/22/17 at 06:45 ; Stop 06/23/17 at 06:44; Status DC Midazolam HCl (Versed) 2 mg STK-MED ONCE .ROUTE ; Start 06/22/17 at 07:17; Stop 06/22/17 at 07:18; Status DC Midazolam HCl 100 ml @ 0 mls/hr CONT PRN IV SEE I/O RECORD Last administered on 06/22/17 23:38; Start 06/22/17 at 07:30 Midazolam HCl (Versed) 2 mg 1X ONCE IV Last administered on 06/22/17 07:30; Start 06/22/17 at 07:30; Stop 06/22/17 at 07:31; Status DC Norepinephrine Bitartrate 250 ml @ As Directed STK-MED ONCE IV ; Start at 08:27; Stop 06/22/17 at 08:28; Status DC Norepinephrine Bitartrate 250 ml @ 0 mls/hr CONT PRN IV SEE I/O RECORD Last administered on 06/22/17 13:02; Start 06/22/17 at 08:30 Sodium Chloride 1,000 ml @ 125 mls/hr Q8H IV Last administered on 06/23/17 08 :21; Start 06/22/17 at 11:00; Stop 06/23/17 at 14:28; Status DC Sodium Chloride 1,000 ml @ 999 mls/hr 1X ONCE IV Last administered on 14:32; Start 06/22/17 at 10:45; Stop 06/22/17 at 11:45; Status DC Vancomycin HCl (Vanco Per Pharmacy) 1 each PRN DAILY PRN MC SEE COMMENTS Last administered on 06/26/17 15:34; Start 06/22/17 at 11:00; Stop 06/27/17 at 14:42 ; Status DC Piperacillin Sod/ Tazobactam Sod (Zosyn Per Pharmacy) 1 each PRN DAILY PRN MC SEE COMMENTS; Start 06/22/17 at 11:00; Stop 06/26/17 at 08:38; Status DC Aspirin (Children'S Aspirin) 81 mg DAILY PO Last administered on 06/29/17 10: 05; Start 06/22/17 at 12:00 Atorvastatin Calcium (Lipitor) 10 mg DAILY PO Last administered on 06/29/17 10 :05; Start 06/22/17 at 12:00 Azathioprine (Imuran) 50 mg DAILY PO Last administered on 06/29/17 10:05; Start 06/22/17 at 12:00 Famotidine (Pepcid) 20 mg HS PO Last administered on 06/28/17 20:35; Start at 21:00 Levothyroxine Sodium (Synthroid) 88 mcg DAILYAC PO Last administered on 10:05; Start 06/22/17 at 12:00 Prednisone (Prednisone) 20 mg DAILY PO Last administered on 06/29/17 10:04; Start 06/22/17 at 12:00 Insulin Detemir (Levemir) 70 units QHS SQ ; Start 06/22/17 at 21:00; Stop at 21:10; Status DC Cetirizine HCl (ZyrTEC) 10 mg DAILY PO Last administered on 06/29/17 10:04; Start 06/22/17 at 12:00 Metoprolol Tartrate (Lopressor) 100 mg BID PO ; Start 06/22/17 at 12:00; Stop 06/22/17 at 18:33; Status DC Tacrolimus (Prograf) 1 mg BID PO Last administered on 06/29/17 10:05; Start 06/22/17 at 12:00 Vancomycin HCl 2 gm/Dextrose/ Sodium Chloride 500 ml @ 250 mls/hr 1X ONCE IV Last administered on 06/22/17 13:04; Start 06/22/17 at 11:30; Stop 06/22/17 at 13:29; Status DC Piperacillin Sod/ Tazobactam Sod (Zosyn) 4.5 gm Q6HRS IVP Last administered on 06/27/17 05:51; Start 06/22/17 at 12:00; Stop 06/27/17 at 14:37; Status DC Vancomycin HCl 2 gm/Dextrose/ Sodium Chloride 500 ml @ 250 mls/hr Q24H IV ; Start 06/23/17 at 13:00; Stop 06/23/17 at 13:00; Status DC Vancomycin HCl 1 each 1X ONCE MC Last administered on 06/24/17 12:30; Start 06/24/17 at 12:30; Stop 06/24/17 at 12:31; Status DC Metoprolol Tartrate (Lopressor) 50 mg BID PO Last administered on 06/29/17 10: 05; Start 06/22/17 at 21:00 Albumin Human 200 ml @ 100 mls/hr TID IV Last administered on 06/22/17 20:44 ; Start 06/22/17 at 21:00; Stop 06/23/17 at 02:42; Status DC Insulin Detemir (Levemir) 70 units QHS SQ Last administered on 06/24/17 21:53 ; Start 06/23/17 at 21:00; Stop 06/25/17 at 10:40; Status DC Insulin Detemir (Levemir) 30 units 1X ONCE SQ Last administered on 06/22/17 21:18; Start 06/22/17 at 21:15; Stop 06/22/17 at 21:16; Status DC Albumin Human 200 ml @ 100 mls/hr TID IV ; Start 06/23/17 at 03:00; Stop at 03:00; Status DC Albumin Human 200 ml @ 100 mls/hr Q6HRS IV Last administered on 06/24/17 05: 47; Start 06/23/17 at 06:00; Stop 06/24/17 at 07:59; Status DC Vancomycin HCl 2 gm/Dextrose/ Sodium Chloride 500 ml @ 250 mls/hr Q24H IV Last administered on 06/24/17 14:43; Start 06/23/17 at 13:00; Stop 06/25/17 at 08:36; Status DC Magnesium Sulfate/ Dextrose 50 ml @ 25 mls/hr PRN DAILY PRN IV for Mag < 1.7 on am labs Last administered on 06/25/17 10:43; Start 06/23/17 at 14:30 Fentanyl Citrate (Fentanyl 2ml Vial) 25 mcg PRN Q4HRS PRN IV PAIN Last administered on 06/23/17 18:35; Start 06/23/17 at 15:45 Magnesium Sulfate/ Dextrose 50 ml @ 25 mls/hr 1X ONCE IV Last administered on 06/24/17 06:32; Start 06/24/17 at 06:30; Stop 06/24/17 at 08:29; Status DC Potassium Phosphate 13.6 mmol/Sodium Chloride 104.5333 ml @ 52.267 m... Q2H IV Last administered on 06/24/17 18:07; Start 06/24/17 at 11:00; Stop 06/24/17 at 16:59; Status DC Furosemide (Lasix) 20 mg 1X ONCE IVP Last administered on 06/24/17 12:59; Start 06/24/17 at 11:15; Stop 06/24/17 at 11:16; Status DC Dextrose (Dextrose 50%-Water Syringe) 25 gm STK-MED ONCE IV ; Start 06/25/17 at 05:58; Stop 06/25/17 at 05:59; Status DC Dextrose (Dextrose 50%-Water Syringe) 12.5 gm PRN Q15MIN PRN IV SEE COMMENTS Last administered on 06/27/17 09:49; Start 06/25/17 at 06:15 Chlorhexidine Gluconate (Peridex) 15 ml BID SWSP ; Start 06/25/17 at 21:00; Stop 06/26/17 at 08:42; Status DC Vancomycin HCl 2 gm/Dextrose/ Sodium Chloride 500 ml @ 250 mls/hr Q48H IV Last administered on 06/26/17 13:17; Start 06/26/17 at 13:00; Stop 06/27/17 at 14:37; Status DC Insulin Detemir (Levemir) 55 units QHS SQ Last administered on 06/27/17 21:06 ; Start 06/25/17 at 21:00 Enoxaparin Sodium (Lovenox 40mg Syringe) 40 mg BID SQ Last administered on 06/28 09:33; Start 06/25/17 at 12:00; Stop 06/28/17 at 10:04; Status DC Nystatin (Nystop) 1 alexis BID TP Last administered on 06/29/17 10:08; Start 06/25/17 at 21:00 Isosorbide Mononitrate (Imdur) 30 mg DAILY PO ; Start 06/26/17 at 09:00 Amino Acids/ Glycerin/ Electrolytes 1,000 ml @ 80 mls/hr [id number] IV ; Start at 09:15; Stop 06/26/17 at 10:44; Status DC Sodium Chloride 500 ml @ 250 mls/hr 1X ONCE IV Last administered on 23:30; Start 06/26/17 at 23:45; Stop 06/27/17 at 01:44; Status DC Sodium Chloride 250 ml @ 250 mls/hr 1X ONCE IV Last administered on 03:00; Start 06/27/17 at 03:15; Stop 06/27/17 at 04:14; Status DC Sodium Chloride 500 ml @ 500 mls/hr 1X ONCE IV Last administered on 08:00; Start 06/27/17 at 08:00; Stop 06/27/17 at 10:39; Status DC Warfarin Sodium (Coumadin) 8 mg DAILY16 PO ; Start 06/27/17 at 16:00; Status Cancel Hydralazine HCl (Apresoline Inj) 10 mg PRN Q4HRS PRN IVP ELEVATED BP, SEE COMMENTS Last administered on 06/29/17 02:54; Start 06/27/17 at 20:00 Albumin Human 200 ml @ 100 mls/hr Q6H IV Last administered on 06/28/17 20:35 ; Start 06/28/17 at 09:00; Stop 06/28/17 at 22:59; Status DC Hydralazine HCl (Apresoline Inj) 10 mg PRN Q4HRS PRN IVP ELEVATED BP, SEE COMMENTS; Start 06/28/17 at 09:30 Enoxaparin Sodium (Lovenox 40mg Syringe) 40 mg DAILY SQ Last administered on 10:06; Start 06/29/17 at 09:00 Nitroglycerin/ Dextrose 250 ml @ 0 mls/hr CONT PRN IV SEE I/O RECORD Last administered on 06/28/17 18:17; Start 06/28/17 at 18:00 Active Scripts Active Keflex (Cephalexin) 500 Mg Capsule 500 Mg PO QID 5 Days Reported Amlodipine Besylate 5 Mg Tablet 10 Mg PO DAILY Azathioprine 50 Mg Tablet 4 Tab PO DAILY Docusate Sodium 100 Mg Capsule 1 Cap PO TID PRN PRN Ferrous Sulfate 325 Mg Tablet 1 Tab PO BIDAC Ondansetron Hcl 4 Mg Tablet 1 Tab PO PRN Q8HRS PRN Prednisone 10 Mg Tablet 5 Mg PO DAILY Thiamine Hcl 100 Mg Tablet 100 Mg PO Nystatin-Triamcinolone Cream (Nystatin/Triamcin) 15 Gm Cream..g. 1 Alexis TP BID Pantoprazole Sodium 40 Mg Tablet.dr 1 Tab PO DAILY Tacrolimus 0.5 Mg Capsule 0.5 Mg PO DAILY Tylenol (Acetaminophen) 325 Mg Tablet 1 Tab PO PRN Q6HRS PRN Haloperidol 0.5 Mg Tablet 0.25 Mg PO PRN Q8HRS PRN Metoprolol Tartrate 50 Mg Tablet 3 Tab PO BID Novolog Flexpen (Insulin Aspart) 100 Unit/1 Ml Insuln.pen 22 Unit SQ AC SUPPER Novolog Flexpen (Insulin Aspart) 100 Unit/1 Ml Insuln.pen 18 Unit SQ AC LUNCH Novolog Flexpen (Insulin Aspart) 100 Unit/1 Ml Insuln.pen 10 Unit SQ AC BREAKFAST Levothyroxine Sodium 88 Mcg Tablet 1 Tab PO DAILY Atorvastatin Calcium 10 Mg Tablet 1 Tab PO DAILY Loratadine 10 Mg Tablet 1 Tab PO DAILY Hydrochlorothiazide Tablet (Hydrochlorothiazide) 25 Mg Tablet 25 Mg PO DAILY Pepcid Ac (Famotidine) 20 Mg Tablet 20 Mg PO HS Tacrolimus 1 Mg Capsule 1 Mg PO BID Men's Multivitamin Gummies (Folic Acid/Multivit-Minerals) 200 Mcg Tab.chew 200 Mcg PO Aspirin 81 Mg Tab.chew 1 Tab PO DAILY Lantus (Insulin Glargine,Hum.rec.anlog) 100 Unit/1 Ml Vial 70 Unit SQ QHS Alendronate Sodium 70 Mg Tablet 70 Mg PO WEEKLY Vitals/I & O Vital Sign - Last 24 Hours 06/28/17 06/28/17 06/28/17 06/28/17 14:00 15:00 15:19 16:00 Temp 97.8 97.8 Pulse 76 80 79 80 Resp 36 29 26 B/P (MAP) 178/83 (114) 191/75 (113) 184/80 172/83 (112) Pulse Ox 92 93 100 O2 Delivery Room Air Room Air BiPAP/CPAP 06/28/17 06/28/17 06/28/17 06/28/17 16:00 16:05 17:00 17:10 Pulse 84 Resp 23 B/P (MAP) 181/70 (107) Pulse Ox 100 100 100 O2 Delivery Bi-pap BiPAP/CPAP BiPAP/CPAP BiPAP/CPAP 06/28/17 06/28/17 06/28/17 06/28/17 17:30 18:00 19:00 19:42 Pulse 80 84 82 83 Resp 25 25 22 B/P (MAP) 192/74 (113) 183/83 (116) 179/67 (104) 169/90 Pulse Ox 100 99 100 O2 Delivery BiPAP/CPAP BiPAP/CPAP BiPAP/CPAP 06/28/17 06/28/17 06/28/17 06/28/17 20:00 20:00 20:00 20:36 Temp 97.0 97.0 Pulse 82 83 Resp 19 B/P (MAP) 171/73 (105) 161/77 Pulse Ox 100 99 O2 Delivery Bi-pap BiPAP/CPAP BiPAP/CPAP 06/28/17 06/28/17 06/28/1717 21:00 22:00 22:45 23:00 Pulse 80 76 76 Resp 24 15 20 B/P (MAP) 165/81 (109) 159/58 (91) 182/69 (106) 154/65 (94) Pulse Ox 98 99 99 O2 Delivery Nasal Cannula BiPAP/CPAP BiPAP/CPAP O2 Flow Rate 3.0 06/28/17 06/28/17 06/29/17 06/29/17 23:16 23:30 00:00 00:00 Temp 98.1 98.1 Pulse 80 Resp 25 B/P (MAP) 175/66 (102) 166/77 (106) Pulse Ox 99 99 O2 Delivery BiPAP/CPAP BiPAP/CPAP Bi-pap 06/29/17 06/29/17 06/29/17 06/29/17 01:00 01:23 02:00 02:54 Pulse 82 78 69 Resp 19 18 B/P (MAP) 155/68 (97) 166/84 (111) 178/70 Pulse Ox 100 100 100 O2 Delivery BiPAP/CPAP BiPAP/CPAP BiPAP/CPAP 06/29/17 06/29/17 06/29/17 06/29/17 03:00 03:22 04:00 04:00 Temp 97.6 97.6 Pulse 78 80 Resp 13 16 B/P (MAP) 153/67 (95) 159/58 (91) Pulse Ox 100 100 100 O2 Delivery BiPAP/CPAP BiPAP/CPAP BiPAP/CPAP Bi-pap 06/29/17 06/29/17 06/29/17 06/29/17 05:00 05:06 06:00 06:34 Pulse 73 74 Resp 11 15 B/P (MAP) 158/65 (96) 144/67 (92) 113/31 (58) Pulse Ox 100 100 100 O2 Delivery BiPAP/CPAP BiPAP/CPAP BiPAP/CPAP 06/29/17 06/29/17 06/29/17 06/29/17 08:00 10:05 10:41 12:41 Pulse 88 B/P (MAP) 131/58 Pulse Ox 100 100 O2 Delivery Bi-pap BiPAP/CPAP BiPAP/CPAP Intake and Output 06/28/17 06/28/17 06/29/17 14:59 22:59 06:59 Intake Total 700 ml 1851 ml 1383 ml Output Total 400 ml 492 ml 243 ml Balance 300 ml 1359 ml 1140 ml Nutrition Consultation Dietary Evaluation: Recommendations by RD: Increase Calorie Intake, Add supplement feedings Comments: Diabetisource AC@goal rate 75 ml/hr w/200 ml water flushes q4 hrs or flushes per MD Expected Outcomes/Goals: TF tolerated at goal rate and providing > 60% est needs - met at times, ongoing Interpretation of weight loss: >7.5% in 3 months Malnutrition Findings: Food and Nutrition Intake (Mod: <75% est energy req 7days Malnutrition related to morbid: BMI>or equal to 40 Malnutrition related to morbid: Yes Weight Status: Morbidly Obese DEENA LUNDBERG MD Jun 29, 2017 13:42
--- NOTE | 2017-06-29 15:17 | PDOC ---
PULMONARY PROGRESS NOTES Subjective EXTUBATED 06/25 PT MORE SOA THIS AM AND YESTERDAY Vitals Vital Signs Date Time Temp Pulse Resp B/P (MAP) Pulse Ox O2 Delivery O2 Flow Rate FiO2 06/29/17 12:41 100 BiPAP/CPAP 06/29/17 10:05 88 131/58 06/29/17 06:00 15 06/29/17 04:00 97.6 97.6 06/28/17 21:00 3.0 ROS: No Nausea, No Chest Pain, No Abdominal Pain, No Increase Cough General: Alert Lungs: Clear, Crackles, Other (POOR BS IN BASES) Cardiovascular: S1 Abdomen: Soft, Other (obese) Neuro Exam: Alert Extremities: Other (right lymphedema, left BKA) Skin: Warm Labs Laboratory Tests Test 06/27/17 16:30 06/27/17 21:06 06/28/17 05:48 06/28/17 14:00 Urine Random Sodium 63 mmol/L (Not Estab.) Glucose (Fingerstick) 142 mg/dL (70-99) 97 mg/dL (70-99) White Blood Count 10.2 x10^3/uL (4.0-11.0) Red Blood Count 3.12 x10^6/uL (4.30-5.70) Hemoglobin 9.7 g/dL (13.0-17.5) Hematocrit 30.2 % (39.0-53.0) Mean Corpuscular Volume 97 fL (79-100) Mean Corpuscular Hemoglobin 31 pg (25-35) Mean Corpuscular Hemoglobin Concent 32 g/dL (31-37) Red Cell Distribution Width 20.7 % (11.5-14.5) Platelet Count 200 x10^3/uL (140-400) Neutrophils (%) (Auto) 78 % (31-73) Lymphocytes (%) (Auto) 10 % (24-48) Monocytes (%) (Auto) 10 % (0-9) Eosinophils (%) (Auto) 1 % (0-3) Basophils (%) (Auto) 1 % (0-3) Neutrophils # (Auto) 7.9 x10^3uL (1.8-7.7) Lymphocytes # (Auto) 1.0 x10^3/uL (1.0-4.8) Monocytes # (Auto) 1.1 x10^3/uL (0.0-1.1) Eosinophils # (Auto) 0.1 x10^3/uL (0.0-0.7) Basophils # (Auto) 0.1 x10^3/uL (0.0-0.2) Segmented Neutrophils % 72 % (35-66) Lymphocytes % 13 % (24-48) Monocytes % 15 % (0-10) Nucleated Red Blood Cells 1 Platelet Estimate Adequate (ADEQUATE) Polychromasia Slight Anisocytosis Slight Sodium Level 147 mmol/L (136-145) Potassium Level 3.5 mmol/L (3.5-5.1) Chloride Level 108 mmol/L (98-107) Carbon Dioxide Level 29 mmol/L (21-32) Anion Gap 10 (6-14) Blood Urea Nitrogen 33 mg/dL (8-26) Creatinine 2.9 mg/dL (0.7-1.3) Estimated GFR (Cockcroft-Gault) 21.4 BUN/Creatinine Ratio 11 (6-20) Glucose Level 92 mg/dL (70-99) Calcium Level 8.7 mg/dL (8.5-10.1) Phosphorus Level 3.2 mg/dL (2.6-4.7) Magnesium Level 2.0 mg/dL (1.8-2.4) Total Bilirubin 0.6 mg/dL (0.2-1.0) Aspartate Amino Transf (AST/SGOT) 18 U/L (15-37) Alanine Aminotransferase (ALT/SGPT) 12 U/L (16-63) Alkaline Phosphatase 80 U/L (46-116) Total Protein 5.7 g/dL (6.4-8.2) Albumin 2.5 g/dL (3.4-5.0) Albumin/Globulin Ratio 0.8 (1.0-1.7) Test 06/28/17 18:20 06/28/17 21:48 06/29/17 05:00 06/29/17 06:15 Glucose (Fingerstick) 129 mg/dL (70-99) 106 mg/dL (70-99) Sodium Level 148 mmol/L (136-145) Potassium Level 3.5 mmol/L (3.5-5.1) Chloride Level 108 mmol/L (98-107) Carbon Dioxide Level 30 mmol/L (21-32) Anion Gap 10 (6-14) Blood Urea Nitrogen 36 mg/dL (8-26) Creatinine 2.7 mg/dL (0.7-1.3) Estimated GFR (Cockcroft-Gault) 23.2 Glucose Level 99 mg/dL (70-99) Calcium Level 8.8 mg/dL (8.5-10.1) Phosphorus Level 3.6 mg/dL (2.6-4.7) Albumin 3.5 g/dL (3.4-5.0) White Blood Count 6.6 x10^3/uL (4.0-11.0) Red Blood Count 2.43 x10^6/uL (4.30-5.70) Hemoglobin 7.6 g/dL (13.0-17.5) Hematocrit 24.0 % (39.0-53.0) Mean Corpuscular Volume 99 fL (79-100) Mean Corpuscular Hemoglobin 31 pg (25-35) Mean Corpuscular Hemoglobin Concent 32 g/dL (31-37) Red Cell Distribution Width 21.1 % (11.5-14.5) Platelet Count 163 x10^3/uL (140-400) Neutrophils (%) (Auto) 77 % (31-73) Lymphocytes (%) (Auto) 12 % (24-48) Monocytes (%) (Auto) 10 % (0-9) Eosinophils (%) (Auto) 1 % (0-3) Basophils (%) (Auto) 0 % (0-3) Neutrophils # (Auto) 5.1 x10^3uL (1.8-7.7) Lymphocytes # (Auto) 0.8 x10^3/uL (1.0-4.8) Monocytes # (Auto) 0.7 x10^3/uL (0.0-1.1) Eosinophils # (Auto) 0.1 x10^3/uL (0.0-0.7) Basophils # (Auto) 0.0 x10^3/uL (0.0-0.2) Laboratory Tests Test 06/28/17 18:20 06/28/17 21:48 06/29/17 05:00 06/29/17 06:15 Glucose (Fingerstick) 129 mg/dL (70-99) 106 mg/dL (70-99) Sodium Level 148 mmol/L (136-145) Potassium Level 3.5 mmol/L (3.5-5.1) Chloride Level 108 mmol/L (98-107) Carbon Dioxide Level 30 mmol/L (21-32) Anion Gap 10 (6-14) Blood Urea Nitrogen 36 mg/dL (8-26) Creatinine 2.7 mg/dL (0.7-1.3) Estimated GFR (Cockcroft-Gault) 23.2 Glucose Level 99 mg/dL (70-99) Calcium Level 8.8 mg/dL (8.5-10.1) Phosphorus Level 3.6 mg/dL (2.6-4.7) Albumin 3.5 g/dL (3.4-5.0) White Blood Count 6.6 x10^3/uL (4.0-11.0) Red Blood Count 2.43 x10^6/uL (4.30-5.70) Hemoglobin 7.6 g/dL (13.0-17.5) Hematocrit 24.0 % (39.0-53.0) Mean Corpuscular Volume 99 fL (79-100) Mean Corpuscular Hemoglobin 31 pg (25-35) Mean Corpuscular Hemoglobin Concent 32 g/dL (31-37) Red Cell Distribution Width 21.1 % (11.5-14.5) Platelet Count 163 x10^3/uL (140-400) Neutrophils (%) (Auto) 77 % (31-73) Lymphocytes (%) (Auto) 12 % (24-48) Monocytes (%) (Auto) 10 % (0-9) Eosinophils (%) (Auto) 1 % (0-3) Basophils (%) (Auto) 0 % (0-3) Neutrophils # (Auto) 5.1 x10^3uL (1.8-7.7) Lymphocytes # (Auto) 0.8 x10^3/uL (1.0-4.8) Monocytes # (Auto) 0.7 x10^3/uL (0.0-1.1) Eosinophils # (Auto) 0.1 x10^3/uL (0.0-0.7) Basophils # (Auto) 0.0 x10^3/uL (0.0-0.2) Medications Active Scripts Medications Dose Route/Sig Max Daily Dose Days Date Category Amlodipine Besylate 5 Mg Tablet 10 Mg PO DAILY 06/22/17 Reported Azathioprine 50 Mg Tablet 4 Tab PO DAILY 06/22/17 Reported Docusate Sodium 100 Mg Capsule 1 Cap PO TID PRN PRN 06/22/17 Reported Ferrous Sulfate 325 Mg Tablet 1 Tab PO BIDAC 06/22/17 Reported Ondansetron Hcl 4 Mg Tablet 1 Tab PO PRN Q8HRS PRN 06/22/17 Reported Prednisone 10 Mg Tablet 5 Mg PO DAILY 06/22/17 Reported Thiamine Hcl 100 Mg Tablet 100 Mg PO 06/22/17 Reported Nystatin-Triamcinolone Cream (Nystatin/Triamcin) 15 Gm Cream..g. 1 Alexis TP BID 06/22/17 Reported Pantoprazole Sodium 40 Mg Tablet.dr 1 Tab PO DAILY 06/22/17 Reported Tacrolimus 0.5 Mg Capsule 0.5 Mg PO DAILY 06/22/17 Reported Tylenol (Acetaminophen) 325 Mg Tablet 1 Tab PO PRN Q6HRS PRN 06/22/17 Reported Haloperidol 0.5 Mg Tablet 0.25 Mg PO PRN Q8HRS PRN 06/22/17 Reported Metoprolol Tartrate 50 Mg Tablet 3 Tab PO BID 06/22/17 Reported Keflex (Cephalexin) 500 Mg Capsule 500 Mg PO QID 5 06/30/15 Rx Novolog Flexpen (Insulin Aspart) 100 Unit/1 Ml Insuln.pen 22 Unit SQ AC SUPPER 06/26/15 Reported Novolog Flexpen (Insulin Aspart) 100 Unit/1 Ml Insuln.pen 18 Unit SQ AC LUNCH 06/26/15 Reported Novolog Flexpen (Insulin Aspart) 100 Unit/1 Ml Insuln.pen 10 Unit SQ AC BREAKFAST 06/26/15 Reported Levothyroxine Sodium 88 Mcg Tablet 1 Tab PO DAILY 06/24/15 Reported Atorvastatin Calcium 10 Mg Tablet 1 Tab PO DAILY 06/24/15 Reported Loratadine 10 Mg Tablet 1 Tab PO DAILY 06/24/15 Reported Hydrochlorothiazide Tablet (Hydrochlorothiazide) 25 Mg Tablet 25 Mg PO DAILY 06/24/15 Reported Pepcid Ac (Famotidine) 20 Mg Tablet 20 Mg PO HS 06/24/15 Reported Tacrolimus 1 Mg Capsule 1 Mg PO BID 06/24/15 Reported Men's Multivitamin Gummies (Folic Acid/Multivit-Minerals) 200 Mcg Tab.chew 200 Mcg PO 06/24/15 Reported Aspirin 81 Mg Tab.chew 1 Tab PO DAILY 06/24/15 Reported Lantus (Insulin Glargine,Hum.rec.anlog) 100 Unit/1 Ml Vial 70 Unit SQ QHS 06/24/15 Reported Alendronate Sodium 70 Mg Tablet 70 Mg PO WEEKLY 06/24/15 Reported Impression . 1. Acute hypercapnic respiratory failure secondary to multifactorial in nature 2. Abnormal ct chest with EFFUSIONS 3. Renal transplant and acute kidney FAILURE 4. Methicillin-resistant Staphylococcus aureus infection. 5. Hypernatremia 6. Severe protein-calorie malnutrition POA 7. Morbid obesity 8. Suspect BEVERLY/OHS 9. Acute/Chronic Cor Pulmonale 10. Chronic Lower Ext Lymphedema 11. Bilateral effusion IMPRESSION: CT 06/28 1. Ongoing moderate sized bilateral pleural effusions with considerable underlying atelectasis, worse in the lower lobes. 2. Moderate bilateral interlobular septal thickening compatible with interstitial pulmonary edema. 3. Extensive calcific plaquing of the aorta and coronary arteries. Plan . EXTUBATE NOW WITH INCREASE SOA NEEDS BIPAP S/W IR WILL PROCEED WITH THORACENTSIS D/W FAMILY D/W DR HUGHES HE HAS BEEN IN HOSPITAL FOR OVE 3 MONTHS, CHANGE OF RETURNING TO NORMAL ACTIVITY FOR HIM IS SLIM TO NONE SPOKE WITH MULTIPLE FAMILY MEMBERS AT BEDSIDE SEVERAL DAYS AGO, PALLIATIVE CARE HAS HAD MULTIPLE CONVERSATION WITH FAMILY AND PATIENT I DON'T THINK SOME MEMBERS OF THE FAMILY COMPREHEND THE COMPLEXITY OF THIS CASE AND THE POSSIBLE POOR OUTCOME. SHARATH VALLE MD Jun 29, 2017 15:17
--- NOTE | 2017-06-29 15:18 | PDOC ---
PROGRESS NOTES Subjective Subjective Patient is slightly better with mild improvement in dyspnea. Objective Objective Vital Signs Date Time Temp Pulse Resp B/P (MAP) Pulse Ox O2 Delivery O2 Flow Rate FiO2 06/29/17 12:41 100 BiPAP/CPAP 06/29/17 10:05 88 131/58 06/29/17 06:00 15 06/29/17 04:00 97.6 97.6 06/28/17 21:00 3.0 Intake and Output 06/29/17 07:00 Intake Total 3934 ml Output Total 1135 ml Balance 2799 ml IV Total 481 ml Tube Feeding 2203 ml Other 1250 ml Output Urine Total 1135 ml Physical Exam Abdomen: Soft, Other (obese) Heart: Other (AFIB rate controlled; distant heart sounds) Extremities: Other ( s/p L AKA, right leg edema with chronic changes) General: Alert, No acute distress HEENT: Atraumatic Lungs: Other (basilar crackles; intubated with mechanical ventilator) MUSCULOSKELETAL: Other (LAKA) Neuro: Other (sedated) Skin: Other (chronic venous stasis changes) Assessment Assessment 1. Acute on chronic respiratory failure: extubated, doing better. Pulmonary following 2. Acute on chronic diastolic CHF: Normal EF 55% with normal wall motion and moderate aortic insufficiency. Patient not responding adequately to Lasix. Plan discussed with nephrology team. Consensus to try dobutamine/dopamine infusion for better diuresis. 3. Uncontrolled BEVERLY/moderate pulmonary HTN: CPAP did not get restarted in SNU. 4. Metabolic/hypoxic encephalopathy - improved 5. Chronic AFIB/LBBB: remains rate controlled. Patient refused long-term anticoagulation in the past 6. REJI on CKD: per nephrology 7. Renal transplant recipient with chronic immunosuppression 8. HTN: Blood pressure elevated and currently on nitroglycerin infusion. 9. DM2/HLP - per IM 10. Hypothyroidism 11. PVD: severe lymphedema with dermatitis. LAKA 12. Protein malnutrition 13. Morbid obesity I Plan Plan of Care Problems Medical Problems: (1) Acute encephalopathy Status: Acute (2) Pulmonary edema Status: Acute (3) Respiratory acidosis Status: Acute Comment Review of Relevant I have reviewed the following items buzz (where applicable) has been applied. Labs Laboratory Tests Test 06/28/17 18:20 06/28/17 21:48 06/29/17 05:00 06/29/17 06:15 Glucose (Fingerstick) 129 mg/dL (70-99) 106 mg/dL (70-99) Sodium Level 148 mmol/L (136-145) Potassium Level 3.5 mmol/L (3.5-5.1) Chloride Level 108 mmol/L (98-107) Carbon Dioxide Level 30 mmol/L (21-32) Anion Gap 10 (6-14) Blood Urea Nitrogen 36 mg/dL (8-26) Creatinine 2.7 mg/dL (0.7-1.3) Estimated GFR (Cockcroft-Gault) 23.2 Glucose Level 99 mg/dL (70-99) Calcium Level 8.8 mg/dL (8.5-10.1) Phosphorus Level 3.6 mg/dL (2.6-4.7) Albumin 3.5 g/dL (3.4-5.0) White Blood Count 6.6 x10^3/uL (4.0-11.0) Red Blood Count 2.43 x10^6/uL (4.30-5.70) Hemoglobin 7.6 g/dL (13.0-17.5) Hematocrit 24.0 % (39.0-53.0) Mean Corpuscular Volume 99 fL (79-100) Mean Corpuscular Hemoglobin 31 pg (25-35) Mean Corpuscular Hemoglobin Concent 32 g/dL (31-37) Red Cell Distribution Width 21.1 % (11.5-14.5) Platelet Count 163 x10^3/uL (140-400) Neutrophils (%) (Auto) 77 % (31-73) Lymphocytes (%) (Auto) 12 % (24-48) Monocytes (%) (Auto) 10 % (0-9) Eosinophils (%) (Auto) 1 % (0-3) Basophils (%) (Auto) 0 % (0-3) Neutrophils # (Auto) 5.1 x10^3uL (1.8-7.7) Lymphocytes # (Auto) 0.8 x10^3/uL (1.0-4.8) Monocytes # (Auto) 0.7 x10^3/uL (0.0-1.1) Eosinophils # (Auto) 0.1 x10^3/uL (0.0-0.7) Basophils # (Auto) 0.0 x10^3/uL (0.0-0.2) Medications Current Medications Dobutamine HCl/ Dextrose 250 ml @ 0 mls/hr CONT PRN IV SEE I/O RECORD; Start 06/29/17 at 13:15 Dopamine HCl/ Dextrose 250 ml @ 16.708 mls/ hr CONT PRN IV SEE I/O RECORD; Start 06/29/17 at 13:15 Enoxaparin Sodium (Lovenox 40mg Syringe) 40 mg DAILY SQ Last administered on 10:06; Start 06/29/17 at 09:00 Furosemide 100 mg/ Sodium Chloride 100 ml @ 0 mls/hr CONT PRN IV SEE I/O RECORD ; Start 06/29/17 at 14:45 Nitroglycerin/ Dextrose 250 ml @ 0 mls/hr CONT PRN IV SEE I/O RECORD Last administered on 06/28/17 18:17; Start 06/28/17 at 18:00 Vitals/I & O Vital Sign - Last 24 Hours 06/28/17 06/28/17 06/28/17 06/28/17 15:19 16:00 16:00 16:05 Temp 97.8 97.8 Pulse 79 80 Resp 26 B/P (MAP) 184/80 172/83 (112) Pulse Ox 100 100 O2 Delivery BiPAP/CPAP Bi-pap BiPAP/CPAP 06/28/17 06/28/17 06/28/17 06/28/17 17:00 17:10 17:30 18:00 Pulse 84 80 84 Resp 23 25 25 B/P (MAP) 181/70 (107) 192/74 (113) 183/83 (116) Pulse Ox 100 100 100 99 O2 Delivery BiPAP/CPAP BiPAP/CPAP BiPAP/CPAP BiPAP/CPAP 06/28/17 06/28/17 06/28/17 06/28/17 19:00 19:42 20:00 20:00 Temp 97.0 97.0 Pulse 82 83 82 Resp 22 19 B/P (MAP) 179/67 (104) 169/90 171/73 (105) Pulse Ox 100 100 O2 Delivery BiPAP/CPAP Bi-pap BiPAP/CPAP 06/28/17 06/28/17 06/28/17 06/28/17 20:00 20:36 21:00 22:00 Pulse 83 80 76 Resp 24 15 B/P (MAP) 161/77 165/81 (109) 159/58 (91) Pulse Ox 99 98 99 O2 Delivery BiPAP/CPAP Nasal Cannula BiPAP/CPAP O2 Flow Rate 3.0 06/28/17 06/28/17 06/28/17 06/28/17 22:45 23:00 23:16 23:30 Pulse 76 Resp 20 B/P (MAP) 182/69 (106) 154/65 (94) 175/66 (102) Pulse Ox 99 99 O2 Delivery BiPAP/CPAP BiPAP/CPAP 06/29/17 06/29/17 06/29/17 06/29/17 00:00 00:00 01:00 01:23 Temp 98.1 98.1 Pulse 80 82 Resp 25 19 B/P (MAP) 166/77 (106) 155/68 (97) Pulse Ox 99 100 100 O2 Delivery BiPAP/CPAP Bi-pap BiPAP/CPAP BiPAP/CPAP 06/29/17 06/29/17 06/29/17 06/29/17 02:00 02:54 03:00 03:22 Pulse 78 69 78 Resp 18 13 B/P (MAP) 166/84 (111) 178/70 153/67 (95) Pulse Ox 100 100 100 O2 Delivery BiPAP/CPAP BiPAP/CPAP BiPAP/CPAP 06/29/17 06/29/17 06/29/17 06/29/17 04:00 04:00 05:00 05:06 Temp 97.6 97.6 Pulse 80 73 Resp 16 11 B/P (MAP) 159/58 (91) 158/65 (96) Pulse Ox 100 100 100 O2 Delivery BiPAP/CPAP Bi-pap BiPAP/CPAP BiPAP/CPAP 06/29/17 06/29/17 06/29/17 06/29/17 06:00 06:34 08:00 10:05 Pulse 74 88 Resp 15 B/P (MAP) 144/67 (92) 113/31 (58) 131/58 Pulse Ox 100 O2 Delivery BiPAP/CPAP Bi-pap 06/29/17 06/29/17 10:41 12:41 Pulse Ox 100 100 O2 Delivery BiPAP/CPAP BiPAP/CPAP Intake and Output 06/28/17 06/28/17 06/29/17 15:00 23:00 07:00 Intake Total 700 ml 1851 ml 1383 ml Output Total 450 ml 492 ml 193 ml Balance 250 ml 1359 ml 1190 ml ATILIO HUGHES MD Jun 29, 2017 15:18
[2017-06-29] MEDS ORDERED: LIDOCAINE 1% / SOD BICARB 8.4% 20 ML VIAL. IJ ONE ×2 (15:20→16:00)
--- NOTE | 2017-06-29 16:13 | RAD ---
CT-guided right thoracostomy tube placement 06/29/2017 Indication: Right pleural effusion. Morbid obesity. Discussion: The risks and benefits of the procedure were discussed the patient. Informed consent was obtained. Timeout procedure was performed. Patient was placed in the supine position. CT imaging confirms a large right pleural effusion. Once an appropriate site for skin entry been selected 1% lidocaine without epinephrine was administered. Under intermittent CT guidance a 5 Japanese sheath needle was advanced into the pleural space with spontaneous return of serous fluid. A guidewire was advanced through this tube, over which following dilatation 8 Japanese drain was placed. The drain was secured in place and a sterile dressing applied. No immediate complications were identified. Impression: Successful CT-guided placement of a small caliber right thoracostomy tube`
[2017-06-29] MEDS: FUROSEMIDE INJ 100 MG in IV NORMAL SALINE 100ML 100 ML IV PRN (16:22)
[2017-06-29 17:35] LABS: BF CLARITY CLEAR; BF COLOR YELLOW
[2017-06-29] MEDS: FAMOTIDINE 20 MG TABLET. PO SCH (20:56)
[2017-06-29] MEDS: INSULIN DETEMIR 300 UNITS/3 ML INSULN.PEN. SQ SCH (20:58)
[2017-06-30] VITALS (24 sets, daily range): BP systolic 121–197; BP diastolic 54–78
[2017-06-30 06:27] LABS: ALBUMIN 3.3 g/dL (3.4-5.0); CALCIUM 9.2 mg/dL (8.5-10.1); CREATININE 2.5 mg/dL (0.7-1.3); GFR 25.4; PHOSPHORUS 3.2 mg/dL (2.6-4.7); POTASSIUM 3.5 mmol/L (3.5-5.1)
[2017-06-30] MEDS: ISOSORBIDE MONONITRATE ER 30 MG TAB.ER.24H PO SCH ×2 (09:00→09:10)
[2017-06-30] MEDS: hydrALAZINE 20 MG/ML VIAL. IVP PRN ×2 (09:08→18:12)
[2017-06-30] MEDS: azaTHIOprine 50 MG TABLET PO SCH (09:09)
[2017-06-30] MEDS: METOPROLOL TART IMMED RELEASE 50 MG TABLET. PO SCH ×2 (09:09→20:54)
[2017-06-30] MEDS: CETIRIZINE HCL 10 MG TABLET. PO SCH (09:10)
[2017-06-30] MEDS: LEVOTHYROXINE 88 MCG TABLET PO SCH (09:10)
[2017-06-30] MEDS: ASPIRIN CHEWABLE 81 MG TABLET. PO SCH (09:10)
[2017-06-30] MEDS: predniSONE 20 MG TABLET PO SCH (09:10)
[2017-06-30] MEDS: ATORVASTATIN CALCIUM 10 MG TABLET. PO SCH (09:10)
[2017-06-30] MEDS: TACROLIMUS 1 MG CAPSULE PO SCH ×2 (09:10→20:55)
[2017-06-30] MEDS: ENOXAPARIN 40 MG/0.4 ML SYRINGE. SQ SCH (09:12)
[2017-06-30] MEDS: NYSTATIN TOPICAL POWDER 15GM BOTTLE. TP SCH ×2 (09:14→21:04)
--- NOTE | 2017-06-30 11:14 | PDOC ---
Renal-Progress Notes Subjective Notes Notes SOB IS BETTER History of Present Illness Hx of present illness STABLE Vitals Vitals Vital Signs Date Time Temp Pulse Resp B/P (MAP) Pulse Ox O2 Delivery O2 Flow Rate FiO2 06/30/17 10:00 80 16 155/78 (103) 100 Nasal Cannula 3.0 06/30/17 08:00 98.6 98.6 Weight Weight [ ] I.O. Intake and Output Intake and Output 06/30/17 07:00 Intake Total 3221.6 ml Output Total 3603 ml Balance -381.4 ml Intake Oral 400 ml IV Total 493.6 ml Tube Feeding 1728 ml Other 600 ml Output Urine Total 1653 ml Chest Tube Drainage Total 1950 ml Labs Labs Laboratory Tests Test 06/29/17 13:54 06/29/17 20:55 06/30/17 05:30 Body Fluid Source Pleural Body Fluid Color Yellow Body Fluid Clarity Clear Body Fluid pH 7.49 Body Fluid Nucleated Cells 53 /cmm Body Fluid Mononuclear WBCs (%) 60 % Body Fluid Polymorphonuclear Cells 17 % Body Fluid Total RBCs Counted 1675 /cmm Body Fluid Other Cells (%) 23 % Glucose (Fingerstick) 229 mg/dL (70-99) Sodium Level 147 mmol/L (136-145) Potassium Level 3.5 mmol/L (3.5-5.1) Chloride Level 107 mmol/L (98-107) Carbon Dioxide Level 30 mmol/L (21-32) Anion Gap 10 (6-14) Blood Urea Nitrogen 41 mg/dL (8-26) Creatinine 2.5 mg/dL (0.7-1.3) Estimated GFR (Cockcroft-Gault) 25.4 Glucose Level 96 mg/dL (70-99) Calcium Level 9.2 mg/dL (8.5-10.1) Phosphorus Level 3.2 mg/dL (2.6-4.7) Albumin 3.3 g/dL (3.4-5.0) Review of Systems Constitutional: yes: weakness, alert, oriented Ears/Nose/Throat: Yes: no symptom reported Eyes: Yes: no symptom reported Pulmonary: Yes dyspnea Cardiovascular: Yes no symptom reported Gastrointestional: Yes: constipation Genitourinary: Yes: no symptom reported Musculoskeletal: Yes: muscle stiffness Skin: Yes color change Endocrine: Yes: no symptom reported Physical Exam General Appearance: no apparent distress Skin: warm Respiratory: decreased breath sounds Abdomen: soft, bowel sounds present Genitourinary: bladder flat Extremities: pulses present, other (LEFT BKA) Neurology: alert, follow commands Assessment Assessment IMP [id number]-CR 2.7-2.5 CKD - CHRONIC ALLOGRAFT NEPHROPATHY WITH CR OF 1.9-2.4 AT BASELINE HX OR RENAL TRANSPLANT 15 YEARS AGO-LIVING RELATED(SON) PLEURAL EFFUSION-S/P RIGHT THORACOSTOMY TUBE DIASTOLIC CHF-IMPROVING ACUTE ON CHRONIC RESP FAILURE-S/P EXTUBATION ANEMIA OF CHRONIC DISEASE CHRONIC AFIB BEVERLY/PULM HTN RENAL MASS WITH ? METS LE LYMPHEDEMA S/P LEFT BKA EARLIER THIS YEAR SEVERE DECONDITIONING CHRONIC IMMUNOSUPPRESSION PLAN CONT WITH LASIX GTT CONT WITH AND DOP START ARANESP CONT PROGRAF AND IMURAN UPDATED FAMILY AND PT ALEJANDRO RIOS MD Jun 30, 2017 11:14
--- NOTE | 2017-06-30 13:39 | PDOC ---
PULMONARY PROGRESS NOTES Subjective EXTUBATED 06/25 LESS SOA NOW ON N/C Vitals Vital Signs Date Time Temp Pulse Resp B/P (MAP) Pulse Ox O2 Delivery O2 Flow Rate FiO2 06/30/17 13:00 83 14 166/68 (100) 100 Nasal Cannula 3.0 06/30/17 12:00 98.1 98.1 ROS: No Nausea, No Chest Pain, No Abdominal Pain, No Increase Cough General: Alert Lungs: Clear Cardiovascular: S1, S2 Abdomen: Soft, Other (obese) Neuro Exam: Alert Extremities: Other (right lymphedema, left BKA) Skin: Warm Labs Laboratory Tests Test 06/28/17 14:00 06/28/17 18:20 06/28/17 21:48 06/29/17 05:00 Glucose (Fingerstick) 97 mg/dL (70-99) 129 mg/dL (70-99) 106 mg/dL (70-99) Sodium Level 148 mmol/L (136-145) Potassium Level 3.5 mmol/L (3.5-5.1) Chloride Level 108 mmol/L (98-107) Carbon Dioxide Level 30 mmol/L (21-32) Anion Gap 10 (6-14) Blood Urea Nitrogen 36 mg/dL (8-26) Creatinine 2.7 mg/dL (0.7-1.3) Estimated GFR (Cockcroft-Gault) 23.2 Glucose Level 99 mg/dL (70-99) Calcium Level 8.8 mg/dL (8.5-10.1) Phosphorus Level 3.6 mg/dL (2.6-4.7) Albumin 3.5 g/dL (3.4-5.0) Test 06/29/17 06:15 06/29/17 13:54 06/29/17 20:55 06/30/17 05:30 White Blood Count 6.6 x10^3/uL (4.0-11.0) Red Blood Count 2.43 x10^6/uL (4.30-5.70) Hemoglobin 7.6 g/dL (13.0-17.5) Hematocrit 24.0 % (39.0-53.0) Mean Corpuscular Volume 99 fL (79-100) Mean Corpuscular Hemoglobin 31 pg (25-35) Mean Corpuscular Hemoglobin Concent 32 g/dL (31-37) Red Cell Distribution Width 21.1 % (11.5-14.5) Platelet Count 163 x10^3/uL (140-400) Neutrophils (%) (Auto) 77 % (31-73) Lymphocytes (%) (Auto) 12 % (24-48) Monocytes (%) (Auto) 10 % (0-9) Eosinophils (%) (Auto) 1 % (0-3) Basophils (%) (Auto) 0 % (0-3) Neutrophils # (Auto) 5.1 x10^3uL (1.8-7.7) Lymphocytes # (Auto) 0.8 x10^3/uL (1.0-4.8) Monocytes # (Auto) 0.7 x10^3/uL (0.0-1.1) Eosinophils # (Auto) 0.1 x10^3/uL (0.0-0.7) Basophils # (Auto) 0.0 x10^3/uL (0.0-0.2) Body Fluid Source Pleural Body Fluid Color Yellow Body Fluid Clarity Clear Body Fluid pH 7.49 Body Fluid Nucleated Cells 53 /cmm Body Fluid Mononuclear WBCs (%) 60 % Body Fluid Polymorphonuclear Cells 17 % Body Fluid Total RBCs Counted 1675 /cmm Body Fluid Other Cells (%) 23 % Glucose (Fingerstick) 229 mg/dL (70-99) Sodium Level 147 mmol/L (136-145) Potassium Level 3.5 mmol/L (3.5-5.1) Chloride Level 107 mmol/L (98-107) Carbon Dioxide Level 30 mmol/L (21-32) Anion Gap 10 (6-14) Blood Urea Nitrogen 41 mg/dL (8-26) Creatinine 2.5 mg/dL (0.7-1.3) Estimated GFR (Cockcroft-Gault) 25.4 Glucose Level 96 mg/dL (70-99) Calcium Level 9.2 mg/dL (8.5-10.1) Phosphorus Level 3.2 mg/dL (2.6-4.7) Albumin 3.3 g/dL (3.4-5.0) Laboratory Tests Test 06/29/17 13:54 06/29/17 20:55 06/30/17 05:30 Body Fluid Source Pleural Body Fluid Color Yellow Body Fluid Clarity Clear Body Fluid pH 7.49 Body Fluid Nucleated Cells 53 /cmm Body Fluid Mononuclear WBCs (%) 60 % Body Fluid Polymorphonuclear Cells 17 % Body Fluid Total RBCs Counted 1675 /cmm Body Fluid Other Cells (%) 23 % Glucose (Fingerstick) 229 mg/dL (70-99) Sodium Level 147 mmol/L (136-145) Potassium Level 3.5 mmol/L (3.5-5.1) Chloride Level 107 mmol/L (98-107) Carbon Dioxide Level 30 mmol/L (21-32) Anion Gap 10 (6-14) Blood Urea Nitrogen 41 mg/dL (8-26) Creatinine 2.5 mg/dL (0.7-1.3) Estimated GFR (Cockcroft-Gault) 25.4 Glucose Level 96 mg/dL (70-99) Calcium Level 9.2 mg/dL (8.5-10.1) Phosphorus Level 3.2 mg/dL (2.6-4.7) Albumin 3.3 g/dL (3.4-5.0) Medications Active Scripts Medications Dose Route/Sig Max Daily Dose Days Date Category Amlodipine Besylate 5 Mg Tablet 10 Mg PO DAILY 06/22/17 Reported Azathioprine 50 Mg Tablet 4 Tab PO DAILY 06/22/17 Reported Docusate Sodium 100 Mg Capsule 1 Cap PO TID PRN PRN 06/22/17 Reported Ferrous Sulfate 325 Mg Tablet 1 Tab PO BIDAC 06/22/17 Reported Ondansetron Hcl 4 Mg Tablet 1 Tab PO PRN Q8HRS PRN 06/22/17 Reported Prednisone 10 Mg Tablet 5 Mg PO DAILY 06/22/17 Reported Thiamine Hcl 100 Mg Tablet 100 Mg PO 06/22/17 Reported Nystatin-Triamcinolone Cream (Nystatin/Triamcin) 15 Gm Cream..g. 1 Alexis TP BID 06/22/17 Reported Pantoprazole Sodium 40 Mg Tablet.dr 1 Tab PO DAILY 06/22/17 Reported Tacrolimus 0.5 Mg Capsule 0.5 Mg PO DAILY 06/22/17 Reported Tylenol (Acetaminophen) 325 Mg Tablet 1 Tab PO PRN Q6HRS PRN 06/22/17 Reported Haloperidol 0.5 Mg Tablet 0.25 Mg PO PRN Q8HRS PRN 06/22/17 Reported Metoprolol Tartrate 50 Mg Tablet 3 Tab PO BID 06/22/17 Reported Keflex (Cephalexin) 500 Mg Capsule 500 Mg PO QID 5 06/30/15 Rx Novolog Flexpen (Insulin Aspart) 100 Unit/1 Ml Insuln.pen 22 Unit SQ AC SUPPER 06/26/15 Reported Novolog Flexpen (Insulin Aspart) 100 Unit/1 Ml Insuln.pen 18 Unit SQ AC LUNCH 06/26/15 Reported Novolog Flexpen (Insulin Aspart) 100 Unit/1 Ml Insuln.pen 10 Unit SQ AC BREAKFAST 06/26/15 Reported Levothyroxine Sodium 88 Mcg Tablet 1 Tab PO DAILY 06/24/15 Reported Atorvastatin Calcium 10 Mg Tablet 1 Tab PO DAILY 06/24/15 Reported Loratadine 10 Mg Tablet 1 Tab PO DAILY 06/24/15 Reported Hydrochlorothiazide Tablet (Hydrochlorothiazide) 25 Mg Tablet 25 Mg PO DAILY 06/24/15 Reported Pepcid Ac (Famotidine) 20 Mg Tablet 20 Mg PO HS 06/24/15 Reported Tacrolimus 1 Mg Capsule 1 Mg PO BID 06/24/15 Reported Men's Multivitamin Gummies (Folic Acid/Multivit-Minerals) 200 Mcg Tab.chew 200 Mcg PO 06/24/15 Reported Aspirin 81 Mg Tab.chew 1 Tab PO DAILY 06/24/15 Reported Lantus (Insulin Glargine,Hum.rec.anlog) 100 Unit/1 Ml Vial 70 Unit SQ QHS 06/24/15 Reported Alendronate Sodium 70 Mg Tablet 70 Mg PO WEEKLY 06/24/15 Reported Impression . 1. Acute hypercapnic respiratory failure secondary to multifactorial in nature 2. Abnormal ct chest with EFFUSIONS S/P CHEST TUBE 3. Renal transplant and acute kidney FAILURE 4. Methicillin-resistant Staphylococcus aureus infection. 5. Hypernatremia 6. Severe protein-calorie malnutrition POA 7. Morbid obesity 8. Suspect [facility] 9. Acute/Chronic Cor Pulmonale 10. Chronic Lower Ext Lymphedema 11. Bilateral effusion IMPRESSION: CT 06/28 1. Ongoing moderate sized bilateral pleural effusions with considerable underlying atelectasis, worse in the lower lobes. 2. Moderate bilateral interlobular septal thickening compatible with interstitial pulmonary edema. 3. Extensive calcific plaquing of the aorta and coronary arteries. Plan . PRN BIPAP 2 LITERS OF FLUID DRAINED IN PAST 24 HOURS CONTINUE IV DOP/LASIX HE HAS BEEN IN HOSPITAL FOR OVE 3 MONTHS, CHANGE OF RETURNING TO NORMAL ACTIVITY FOR HIM IS SLIM TO NONE SPOKE WITH MULTIPLE FAMILY MEMBERS AT BEDSIDE SEVERAL DAYS AGO, PALLIATIVE CARE HAS HAD MULTIPLE CONVERSATION WITH FAMILY AND PATIENT I DON'T THINK SOME MEMBERS OF THE FAMILY COMPREHEND THE COMPLEXITY OF THIS CASE AND THE POSSIBLE POOR OUTCOME. SHARATH VALLE MD Jun 30, 2017 13:39
--- NOTE | 2017-06-30 13:54 | PDOC ---
PROGRESS NOTES Chief Complaint Chief Complaint Acute hypercarbic, hypoxic respiratory failure History of Present Illness History of Present Illness Pt seen in ICU, surrounded by 5 family members including Pt sitting upright, AAOx3, NAD, NGT, 2LNC, Thoracostomy tube draining fluid on Right DW RN, pt responds to NGT feeding with hypernatremia, doing flushes 200 q6 with nausea, then 100 Q3 with nausea Vitals Vitals Vital Signs Date Time Temp Pulse Resp B/P (MAP) Pulse Ox O2 Delivery O2 Flow Rate FiO2 06/30/17 13:00 83 14 166/68 (100) 100 Nasal Cannula 3.0 06/30/17 12:00 98.1 98.1 Physical Exam Physical Exam Physical Exam General: Alert, No acute distress oral mucosa dry Heart: Other (AFIB rate controlled; distant heart sounds) Lungs: Clear (ant) Abdomen: Soft, Other (obese), nontender Extremities: Other ( 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 3 plus pitting edema Skin: Other (chronic venous stasis changes) urine output better with iv albumin General: Alert, Oriented X3, Cooperative, No acute distress Heart: Other (AFIB rate controlled; distant heart sounds) Lungs: Clear Abdomen: Soft, Other (obese) Extremities: No clubbing, No cyanosis Skin: No rashes, Other (chronic venous stasis changes) Labs LABS Laboratory Tests Test 06/29/17 13:54 06/29/17 20:55 06/30/17 05:30 Body Fluid Source Pleural Body Fluid Color Yellow Body Fluid Clarity Clear Body Fluid pH 7.49 Body Fluid Nucleated Cells 53 /cmm Body Fluid Mononuclear WBCs (%) 60 % Body Fluid Polymorphonuclear Cells 17 % Body Fluid Total RBCs Counted 1675 /cmm Body Fluid Other Cells (%) 23 % Glucose (Fingerstick) 229 mg/dL (70-99) Sodium Level 147 mmol/L (136-145) Potassium Level 3.5 mmol/L (3.5-5.1) Chloride Level 107 mmol/L (98-107) Carbon Dioxide Level 30 mmol/L (21-32) Anion Gap 10 (6-14) Blood Urea Nitrogen 41 mg/dL (8-26) Creatinine 2.5 mg/dL (0.7-1.3) Estimated GFR (Cockcroft-Gault) 25.4 Glucose Level 96 mg/dL (70-99) Calcium Level 9.2 mg/dL (8.5-10.1) Phosphorus Level 3.2 mg/dL (2.6-4.7) Albumin 3.3 g/dL (3.4-5.0) Review of Systems Review of Systems General: No fatigue, Fever, night sweats Assessment and Plan Assessmemt and Plan Assessment: Acute Encephalopathy Respiratory Acidosis Pulmonary Edema Acute Hypernatremia Obesity Plan: Continue ICU monitoring Continue Dobutamine IV Continue NGT Continue Thoracostomy tube and drainage Continue Oxygen therapy Continue Home meds Continue PT/OT Recheck Labs Problems: Comment Review of Relevant I have reviewed the following items ubzz (where applicable) has been applied. Labs Laboratory Tests Test 06/28/17 14:00 06/28/17 18:20 06/28/17 21:48 06/29/17 05:00 Glucose (Fingerstick) 97 mg/dL (70-99) 129 mg/dL (70-99) 106 mg/dL (70-99) Sodium Level 148 mmol/L (136-145) Potassium Level 3.5 mmol/L (3.5-5.1) Chloride Level 108 mmol/L (98-107) Carbon Dioxide Level 30 mmol/L (21-32) Anion Gap 10 (6-14) Blood Urea Nitrogen 36 mg/dL (8-26) Creatinine 2.7 mg/dL (0.7-1.3) Estimated GFR (Cockcroft-Gault) 23.2 Glucose Level 99 mg/dL (70-99) Calcium Level 8.8 mg/dL (8.5-10.1) Phosphorus Level 3.6 mg/dL (2.6-4.7) Albumin 3.5 g/dL (3.4-5.0) Test 06/29/17 06:15 06/29/17 13:54 06/29/17 20:55 06/30/17 05:30 White Blood Count 6.6 x10^3/uL (4.0-11.0) Red Blood Count 2.43 x10^6/uL (4.30-5.70) Hemoglobin 7.6 g/dL (13.0-17.5) Hematocrit 24.0 % (39.0-53.0) Mean Corpuscular Volume 99 fL (79-100) Mean Corpuscular Hemoglobin 31 pg (25-35) Mean Corpuscular Hemoglobin Concent 32 g/dL (31-37) Red Cell Distribution Width 21.1 % (11.5-14.5) Platelet Count 163 x10^3/uL (140-400) Neutrophils (%) (Auto) 77 % (31-73) Lymphocytes (%) (Auto) 12 % (24-48) Monocytes (%) (Auto) 10 % (0-9) Eosinophils (%) (Auto) 1 % (0-3) Basophils (%) (Auto) 0 % (0-3) Neutrophils # (Auto) 5.1 x10^3uL (1.8-7.7) Lymphocytes # (Auto) 0.8 x10^3/uL (1.0-4.8) Monocytes # (Auto) 0.7 x10^3/uL (0.0-1.1) Eosinophils # (Auto) 0.1 x10^3/uL (0.0-0.7) Basophils # (Auto) 0.0 x10^3/uL (0.0-0.2) Body Fluid Source Pleural Body Fluid Color Yellow Body Fluid Clarity Clear Body Fluid pH 7.49 Body Fluid Nucleated Cells 53 /cmm Body Fluid Mononuclear WBCs (%) 60 % Body Fluid Polymorphonuclear Cells 17 % Body Fluid Total RBCs Counted 1675 /cmm Body Fluid Other Cells (%) 23 % Glucose (Fingerstick) 229 mg/dL (70-99) Sodium Level 147 mmol/L (136-145) Potassium Level 3.5 mmol/L (3.5-5.1) Chloride Level 107 mmol/L (98-107) Carbon Dioxide Level 30 mmol/L (21-32) Anion Gap 10 (6-14) Blood Urea Nitrogen 41 mg/dL (8-26) Creatinine 2.5 mg/dL (0.7-1.3) Estimated GFR (Cockcroft-Gault) 25.4 Glucose Level 96 mg/dL (70-99) Calcium Level 9.2 mg/dL (8.5-10.1) Phosphorus Level 3.2 mg/dL (2.6-4.7) Albumin 3.3 g/dL (3.4-5.0) Laboratory Tests Test 06/29/17 13:54 06/29/17 20:55 06/30/17 05:30 Body Fluid Source Pleural Body Fluid Color Yellow Body Fluid Clarity Clear Body Fluid pH 7.49 Body Fluid Nucleated Cells 53 /cmm Body Fluid Mononuclear WBCs (%) 60 % Body Fluid Polymorphonuclear Cells 17 % Body Fluid Total RBCs Counted 1675 /cmm Body Fluid Other Cells (%) 23 % Glucose (Fingerstick) 229 mg/dL (70-99) Sodium Level 147 mmol/L (136-145) Potassium Level 3.5 mmol/L (3.5-5.1) Chloride Level 107 mmol/L (98-107) Carbon Dioxide Level 30 mmol/L (21-32) Anion Gap 10 (6-14) Blood Urea Nitrogen 41 mg/dL (8-26) Creatinine 2.5 mg/dL (0.7-1.3) Estimated GFR (Cockcroft-Gault) 25.4 Glucose Level 96 mg/dL (70-99) Calcium Level 9.2 mg/dL (8.5-10.1) Phosphorus Level 3.2 mg/dL (2.6-4.7) Albumin 3.3 g/dL (3.4-5.0) Medications Current Medications Etomidate (Amidate) 20 mg STK-MED ONCE IV ; Start 06/22/17 at 05:47; Stop at 05:48; Status DC Rocuronium Obion (Zemuron) 50 mg STK-MED ONCE .ROUTE ; Start 06/22/17 at 05:48 ; Stop 06/22/17 at 05:49; Status DC Propofol 50 ml @ As Directed STK-MED ONCE IV ; Start 06/22/17 at 06:15; Stop at 06:16; Status DC Propofol 100 ml @ 0 mls/hr CONT PRN IV SEE I/O RECORD Last administered on 06/25 03:20; Start 06/22/17 at 06:30 Ondansetron HCl (Zofran) 4 mg PRN Q8HRS PRN IV NAUSEA/VOMITING; Start 06/22/17 at 06:45; Stop 06/23/17 at 06:44; Status DC Fentanyl Citrate (Fentanyl 2ml Vial) 50 mcg PRN Q1HR PRN IV PAIN Last administered on 06/22/17 07:04; Start 06/22/17 at 06:45; Stop 06/23/17 at 06:44 ; Status DC Sodium Chloride 1,000 ml @ 75 mls/hr [id number] IV ; Start 06/22/17 at 06:45; Stop 06/22/17 at 19:47; Status DC Acetaminophen (Tylenol) 650 mg PRN Q4HRS PRN PO FEVER; Start 06/22/17 at 06:45 ; Stop 06/23/17 at 06:44; Status DC Midazolam HCl (Versed) 2 mg STK-MED ONCE .ROUTE ; Start 06/22/17 at 07:17; Stop 06/22/17 at 07:18; Status DC Midazolam HCl 100 ml @ 0 mls/hr CONT PRN IV SEE I/O RECORD Last administered on 06/22/17 23:38; Start 06/22/17 at 07:30 Midazolam HCl (Versed) 2 mg 1X ONCE IV Last administered on 06/22/17 07:30; Start 06/22/17 at 07:30; Stop 06/22/17 at 07:31; Status DC Norepinephrine Bitartrate 250 ml @ As Directed STK-MED ONCE IV ; Start at 08:27; Stop 06/22/17 at 08:28; Status DC Norepinephrine Bitartrate 250 ml @ 0 mls/hr CONT PRN IV SEE I/O RECORD Last administered on 06/22/17 13:02; Start 06/22/17 at 08:30 Sodium Chloride 1,000 ml @ 125 mls/hr Q8H IV Last administered on 06/23/17 08 :21; Start 06/22/17 at 11:00; Stop 06/23/17 at 14:28; Status DC Sodium Chloride 1,000 ml @ 999 mls/hr 1X ONCE IV Last administered on 14:32; Start 06/22/17 at 10:45; Stop 06/22/17 at 11:45; Status DC Vancomycin HCl (Vanco Per Pharmacy) 1 each PRN DAILY PRN MC SEE COMMENTS Last administered on 06/26/17 15:34; Start 06/22/17 at 11:00; Stop 06/27/17 at 14:42 ; Status DC Piperacillin Sod/ Tazobactam Sod (Zosyn Per Pharmacy) 1 each PRN DAILY PRN MC SEE COMMENTS; Start 06/22/17 at 11:00; Stop 06/26/17 at 08:38; Status DC Aspirin (Children'S Aspirin) 81 mg DAILY PO Last administered on 06/30/17 09: 10; Start 06/22/17 at 12:00 Atorvastatin Calcium (Lipitor) 10 mg DAILY PO Last administered on 06/30/17 09 :10; Start 06/22/17 at 12:00 Azathioprine (Imuran) 50 mg DAILY PO Last administered on 06/30/17 09:09; Start 06/22/17 at 12:00 Famotidine (Pepcid) 20 mg HS PO Last administered on 06/29/17 20:56; Start at 21:00 Levothyroxine Sodium (Synthroid) 88 mcg DAILYAC PO Last administered on 09:10; Start 06/22/17 at 12:00 Prednisone (Prednisone) 20 mg DAILY PO Last administered on 06/30/17 09:10; Start 06/22/17 at 12:00 Insulin Detemir (Levemir) 70 units QHS SQ ; Start 06/22/17 at 21:00; Stop at 21:10; Status DC Cetirizine HCl (ZyrTEC) 10 mg DAILY PO Last administered on 06/30/17 09:10; Start 06/22/17 at 12:00 Metoprolol Tartrate (Lopressor) 100 mg BID PO ; Start 06/22/17 at 12:00; Stop 06/22/17 at 18:33; Status DC Tacrolimus (Prograf) 1 mg BID PO Last administered on 06/30/17 09:10; Start 06/22/17 at 12:00 Vancomycin HCl 2 gm/Dextrose/ Sodium Chloride 500 ml @ 250 mls/hr 1X ONCE IV Last administered on 06/22/17 13:04; Start 06/22/17 at 11:30; Stop 06/22/17 at 13:29; Status DC Piperacillin Sod/ Tazobactam Sod (Zosyn) 4.5 gm Q6HRS IVP Last administered on 06/27/17 05:51; Start 06/22/17 at 12:00; Stop 06/27/17 at 14:37; Status DC Vancomycin HCl 2 gm/Dextrose/ Sodium Chloride 500 ml @ 250 mls/hr Q24H IV ; Start 06/23/17 at 13:00; Stop 06/23/17 at 13:00; Status DC Vancomycin HCl 1 each 1X ONCE MC Last administered on 06/24/17 12:30; Start 06/24/17 at 12:30; Stop 06/24/17 at 12:31; Status DC Metoprolol Tartrate (Lopressor) 50 mg BID PO Last administered on 06/30/17 09: 09; Start 06/22/17 at 21:00 Albumin Human 200 ml @ 100 mls/hr TID IV Last administered on 06/22/17 20:44 ; Start 06/22/17 at 21:00; Stop 06/23/17 at 02:42; Status DC Insulin Detemir (Levemir) 70 units QHS SQ Last administered on 06/24/17 21:53 ; Start 06/23/17 at 21:00; Stop 06/25/17 at 10:40; Status DC Insulin Detemir (Levemir) 30 units 1X ONCE SQ Last administered on 06/22/17 21:18; Start 06/22/17 at 21:15; Stop 06/22/17 at 21:16; Status DC Albumin Human 200 ml @ 100 mls/hr TID IV ; Start 06/23/17 at 03:00; Stop at 03:00; Status DC Albumin Human 200 ml @ 100 mls/hr Q6HRS IV Last administered on 06/24/17 05: 47; Start 06/23/17 at 06:00; Stop 06/24/17 at 07:59; Status DC Vancomycin HCl 2 gm/Dextrose/ Sodium Chloride 500 ml @ 250 mls/hr Q24H IV Last administered on 06/24/17 14:43; Start 06/23/17 at 13:00; Stop 06/25/17 at 08:36; Status DC Magnesium Sulfate/ Dextrose 50 ml @ 25 mls/hr PRN DAILY PRN IV for Mag < 1.7 on am labs Last administered on 06/25/17 10:43; Start 06/23/17 at 14:30 Fentanyl Citrate (Fentanyl 2ml Vial) 25 mcg PRN Q4HRS PRN IV PAIN Last administered on 12/2/17at 18:35; Start 06/23/17 at 15:45 Magnesium Sulfate/ Dextrose 50 ml @ 25 mls/hr 1X ONCE IV Last administered on 06/24/17 06:32; Start 06/24/17 at 06:30; Stop 06/24/17 at 08:29; Status DC Potassium Phosphate 13.6 mmol/Sodium Chloride 104.5333 ml @ 52.267 m... Q2H IV Last administered on 06/24/17 18:07; Start 06/24/17 at 11:00; Stop 06/24/17 at 16:59; Status DC Furosemide (Lasix) 20 mg 1X ONCE IVP Last administered on 06/24/17 12:59; Start 06/24/17 at 11:15; Stop 06/24/17 at 11:16; Status DC Dextrose (Dextrose 50%-Water Syringe) 25 gm STK-MED ONCE IV ; Start 06/25/17 at 05:58; Stop 06/25/17 at 05:59; Status DC Dextrose (Dextrose 50%-Water Syringe) 12.5 gm PRN Q15MIN PRN IV SEE COMMENTS Last administered on 06/27/17 09:49; Start 06/25/17 at 06:15 Chlorhexidine Gluconate (Peridex) 15 ml BID SWSP ; Start 06/25/17 at 21:00; Stop 06/26/17 at 08:42; Status DC Vancomycin HCl 2 gm/Dextrose/ Sodium Chloride 500 ml @ 250 mls/hr Q48H IV Last administered on 06/26/17 13:17; Start 06/26/17 at 13:00; Stop 06/27/17 at 14:37; Status DC Insulin Detemir (Levemir) 55 units QHS SQ Last administered on 06/29/17 20:58 ; Start 06/25/17 at 21:00 Enoxaparin Sodium (Lovenox 40mg Syringe) 40 mg BID SQ Last administered on 06/28 09:33; Start 06/25/17 at 12:00; Stop 06/28/17 at 10:04; Status DC Nystatin (Nystop) 1 ana BID TP Last administered on 06/30/17 09:14; Start 06/25/17 at 21:00 Isosorbide Mononitrate (Imdur) 30 mg DAILY PO ; Start 06/26/17 at 09:00 Amino Acids/ Glycerin/ Electrolytes 1,000 ml @ 80 mls/hr [id number] IV ; Start at 09:15; Stop 06/26/17 at 10:44; Status DC Sodium Chloride 500 ml @ 250 mls/hr 1X ONCE IV Last administered on 23:30; Start 06/26/17 at 23:45; Stop 06/27/17 at 01:44; Status DC Sodium Chloride 250 ml @ 250 mls/hr 1X ONCE IV Last administered on 03:00; Start 06/27/17 at 03:15; Stop 06/27/17 at 04:14; Status DC Sodium Chloride 500 ml @ 500 mls/hr 1X ONCE IV Last administered on 08:00; Start 06/27/17 at 08:00; Stop 06/27/17 at 10:39; Status DC Warfarin Sodium (Coumadin) 8 mg DAILY16 PO ; Start 06/27/17 at 16:00; Status Cancel Hydralazine HCl (Apresoline Inj) 10 mg PRN Q4HRS PRN IVP ELEVATED BP, SEE COMMENTS Last administered on 06/29/17 02:54; Start 06/27/17 at 20:00; Stop at 14:45; Status DC Albumin Human 200 ml @ 100 mls/hr Q6H IV Last administered on 06/28/17 20:35 ; Start 06/28/17 at 09:00; Stop 06/28/17 at 22:59; Status DC Hydralazine HCl (Apresoline Inj) 10 mg PRN Q4HRS PRN IVP ELEVATED BP, SEE COMMENTS Last administered on 06/30/17 09:08; Start 06/28/17 at 09:30 Enoxaparin Sodium (Lovenox 40mg Syringe) 40 mg DAILY SQ Last administered on 09:12; Start 06/29/17 at 09:00 Nitroglycerin/ Dextrose 250 ml @ 0 mls/hr CONT PRN IV SEE I/O RECORD Last administered on 06/28/17 18:17; Start 06/28/17 at 18:00 Dobutamine HCl/ Dextrose 250 ml @ 0 mls/hr CONT PRN IV SEE I/O RECORD Last administered on 06/30/17 11:42; Start 06/29/17 at 13:15 Dopamine HCl/ Dextrose 250 ml @ 16.708 mls/ hr CONT PRN IV SEE I/O RECORD Last administered on 06/30/17 05:46; Start 06/29/17 at 13:15 Furosemide 100 mg/ Sodium Chloride 100 ml @ 0 mls/hr CONT PRN IV SEE I/O RECORD Last administered on 06/29/17 16:22; Start 06/29/17 at 14:45 Lidocaine/Sodium Bicarbonate (Buffered Lidocaine 1%) 20 ml STK-MED ONCE IJ ; Start 06/29/17 at 15:20; Stop 06/29/17 at 15:21; Status DC Lidocaine/Sodium Bicarbonate (Buffered Lidocaine 1%) 5 ml 1X ONCE IJ ; Start 06/29/17 at 16:00; Stop 06/29/17 at 16:01; Status DC Darbepoetin Huber (Aranesp) 60 mcg WEEKLYHS SQ ; Start 06/30/17 at 21:00 Active Scripts Active Keflex (Cephalexin) 500 Mg Capsule 500 Mg PO QID 5 Days Reported Amlodipine Besylate 5 Mg Tablet 10 Mg PO DAILY Azathioprine 50 Mg Tablet 4 Tab PO DAILY Docusate Sodium 100 Mg Capsule 1 Cap PO TID PRN PRN Ferrous Sulfate 325 Mg Tablet 1 Tab PO BIDAC Ondansetron Hcl 4 Mg Tablet 1 Tab PO PRN Q8HRS PRN Prednisone 10 Mg Tablet 5 Mg PO DAILY Thiamine Hcl 100 Mg Tablet 100 Mg PO Nystatin-Triamcinolone Cream (Nystatin/Triamcin) 15 Gm Cream..g. 1 Ana TP BID Pantoprazole Sodium 40 Mg Tablet.dr 1 Tab PO DAILY Tacrolimus 0.5 Mg Capsule 0.5 Mg PO DAILY Tylenol (Acetaminophen) 325 Mg Tablet 1 Tab PO PRN Q6HRS PRN Haloperidol 0.5 Mg Tablet 0.25 Mg PO PRN Q8HRS PRN Metoprolol Tartrate 50 Mg Tablet 3 Tab PO BID Novolog Flexpen (Insulin Aspart) 100 Unit/1 Ml Insuln.pen 22 Unit SQ AC SUPPER Novolog Flexpen (Insulin Aspart) 100 Unit/1 Ml Insuln.pen 18 Unit SQ AC LUNCH Novolog Flexpen (Insulin Aspart) 100 Unit/1 Ml Insuln.pen 10 Unit SQ AC BREAKFAST Levothyroxine Sodium 88 Mcg Tablet 1 Tab PO DAILY Atorvastatin Calcium 10 Mg Tablet 1 Tab PO DAILY Loratadine 10 Mg Tablet 1 Tab PO DAILY Hydrochlorothiazide Tablet (Hydrochlorothiazide) 25 Mg Tablet 25 Mg PO DAILY Pepcid Ac (Famotidine) 20 Mg Tablet 20 Mg PO HS Tacrolimus 1 Mg Capsule 1 Mg PO BID Men's Multivitamin Gummies (Folic Acid/Multivit-Minerals) 200 Mcg Tab.chew 200 Mcg PO Aspirin 81 Mg Tab.chew 1 Tab PO DAILY Lantus (Insulin Glargine,Hum.rec.anlog) 100 Unit/1 Ml Vial 70 Unit SQ QHS Alendronate Sodium 70 Mg Tablet 70 Mg PO WEEKLY Vitals/I & O Vital Sign - Last 24 Hours 06/29/17 06/29/17 06/29/17 06/29/17 14:00 15:00 15:35 15:50 Pulse 74 74 80 85 Resp 15 15 30 30 B/P (MAP) 147/59 (88) 174/14 (67) 149/70 (96) 148/69 (95) Pulse Ox 100 100 100 100 O2 Delivery Nasal Cannula Nasal Cannula NonRebreather Mask NonRebreather Mask O2 Flow Rate 3.0 3.0 10.0 10.0 06/29/17 06/29/17 06/29/17 06/29/17 16:00 16:00 16:15 16:30 Temp 99.3 99.3 Pulse 93 84 80 Resp 30 30 27 B/P (MAP) 188/86 (120) 171/69 (103) 186/73 (110) Pulse Ox 100 96 98 O2 Delivery Nasal Cannula Bi-pap Nasal Cannula Nasal Cannula O2 Flow Rate 3.0 3.0 3.0 06/29/17 06/29/17 06/29/17 06/29/17 17:00 17:30 18:00 19:00 Temp 97.7 97.7 Pulse 109 109 102 106 Resp 28 22 26 26 B/P (MAP) 156/64 (94) 171/69 (103) 133/57 (82) 141/54 (83) Pulse Ox 98 98 97 97 O2 Delivery Nasal Cannula Nasal Cannula Nasal Cannula Nasal Cannula O2 Flow Rate 3.0 3.0 3.0 3.0 06/29/17 06/29/17 06/29/17 06/29/17 19:49 20:00 21:00 21:00 Pulse 114 105 108 Resp B/P (MAP) 118/64 (82) 106/71 106/71 (83) Pulse Ox 97 97 O2 Delivery Bi-pap Nasal Cannula BiPAP/CPAP O2 Flow Rate 3.0 06/29/17 06/29/17 06/29/17 06/30/17 22:00 23:00 23:44 00:00 Temp 98.0 98.0 Pulse 88 89 94 Resp B/P (MAP) 108/64 (79) 121/66 (84) 187/76 (113) Pulse Ox 97 100 100 O2 Delivery BiPAP/CPAP Nasal Cannula Bi-pap Nasal Cannula O2 Flow Rate 3.0 3.0 06/30/17 06/30/17 06/30/17 06/30/17 01:00 02:00 03:00 04:00 Temp 98.3 98.3 Pulse 90 92 92 92 Resp B/P (MAP) 164/60 (94) 121/66 (84) 168/54 (92) 186/61 (102) Pulse Ox 100 100 100 100 O2 Delivery Nasal Cannula Nasal Cannula Nasal Cannula Nasal Cannula O2 Flow Rate 3.0 3.0 3.0 3.0 06/30/17 06/30/17 06/30/17 06/30/17 04:04 05:00 06:00 07:00 Pulse 94 96 96 Resp B/P (MAP) 185/59 (101) 154/61 (92) 170/58 (95) Pulse Ox 100 100 100 O2 Delivery Bi-pap Nasal Cannula Nasal Cannula Nasal Cannula O2 Flow Rate 3.0 3.0 3.0 06/30/17 06/30/17 06/30/17 06/30/17 08:00 08:00 08:00 09:00 Temp 98.6 98.6 Pulse 92 102 Resp B/P (MAP) 189/61 (103) 192/70 (110) Pulse Ox 100 100 O2 Delivery Nasal Cannula Nasal Cannula Nasal Cannula O2 Flow Rate 3.0 3.0 3.0 3.0 06/30/17 06/30/17 06/30/17 06/30/17 09:08 09:09 10:00 11:00 Pulse 95 106 80 79 Resp 16 12 B/P (MAP) 192/70 192/70 155/78 (103) 163/62 (95) Pulse Ox 100 100 O2 Delivery Nasal Cannula Nasal Cannula O2 Flow Rate 3.0 3.0 06/30/17 06/30/17 06/30/17 06/30/17 12:00 12:00 12:00 13:00 Temp 98.1 98.1 Pulse 82 83 Resp 22 14 B/P (MAP) 168/61 (96) 166/68 (100) Pulse Ox 100 100 O2 Delivery Nasal Cannula Nasal Cannula Nasal Cannula O2 Flow Rate 3.0 3.0 3.0 3.0 Intake and Output 06/29/17 06/29/17 06/30/17 15:00 23:00 07:00 Intake Total 400 ml 1662.6 ml 1159 ml Output Total 328 ml 2155 ml 1120 ml Balance 72 ml -492.4 ml 39 ml Nutrition Consultation Dietary Evaluation: Recommendations by RD: Increase Calorie Intake, Add supplement feedings Comments: Diabetisource AC@goal rate 75 ml/hr w/200 ml water flushes q4 hrs or flushes per MD Expected Outcomes/Goals: TF tolerated at goal rate and providing > 60% est needs - met at times, ongoing Interpretation of weight loss: >7.5% in 3 months Malnutrition Findings: Food and Nutrition Intake (Mod: <75% est energy req 7days Malnutrition related to morbid: BMI>or equal to 40 Malnutrition related to morbid: Yes Weight Status: Morbidly Obese KASSIE COKER III DO Jun 30, 2017 13:54
--- NOTE | 2017-06-30 16:23 | PDOC ---
PROGRESS NOTES Subjective Subjective Feeling better today after diuresis Objective Objective Vital Signs Date Time Temp Pulse Resp B/P (MAP) Pulse Ox O2 Delivery O2 Flow Rate FiO2 06/30/17 14:00 96 24 189/60 (103) 99 Nasal Cannula 3.0 06/30/17 12:00 98.1 98.1 Intake and Output 06/30/17 07:00 Intake Total 3221.6 ml Output Total 3603 ml Balance -381.4 ml Intake Oral 400 ml IV Total 493.6 ml Tube Feeding 1728 ml Other 600 ml Output Urine Total 1653 ml Chest Tube Drainage Total 1950 ml Physical Exam Abdomen: Soft, Other (obese) Heart: Other (AFIB rate controlled; distant heart sounds) Extremities: No clubbing, No cyanosis General: Alert, Oriented X3, Cooperative, No acute distress HEENT: Atraumatic Lungs: Other (basilar crackles; intubated with mechanical ventilator) MUSCULOSKELETAL: Other (LAKA) Neuro: Other (sedated) Skin: No rashes, Other (chronic venous stasis changes) Assessment Assessment 1. Acute on chronic respiratory failure: extubated, doing better. Patient had thoracentesis yesterday and combined with increased diuresis he is presently feeling better. Pulmonary following 2. Acute on chronic diastolic CHF: Normal EF 55% with normal wall motion and moderate aortic insufficiency. Improved diuresis after initiating dopamine and dobutamine infusions. Continue Lasix but nephrology team. 3. Uncontrolled BEVERLY/moderate pulmonary HTN: CPAP did not get restarted in SNU. 4. Metabolic/hypoxic encephalopathy - improved 5. Chronic AFIB/LBBB: remains rate controlled. Patient refused long-term anticoagulation in the past 6. REJI on CKD: per nephrology 7. Renal transplant recipient with chronic immunosuppression 8. HTN: Blood pressure elevated and currently on nitroglycerin infusion. 9. DM2/HLP - per IM 10. Hypothyroidism 11. PVD: severe lymphedema with dermatitis. LAKA 12. Protein malnutrition 13. Morbid obesity Guarded prognosis Plan Plan of Care Problems Medical Problems: (1) Acute encephalopathy Status: Acute (2) Pulmonary edema Status: Acute (3) Respiratory acidosis Status: Acute Comment Review of Relevant I have reviewed the following items buzz (where applicable) has been applied. Labs Laboratory Tests Test 06/29/17 20:55 06/30/17 05:30 Glucose (Fingerstick) 229 mg/dL (70-99) Sodium Level 147 mmol/L (136-145) Potassium Level 3.5 mmol/L (3.5-5.1) Chloride Level 107 mmol/L (98-107) Carbon Dioxide Level 30 mmol/L (21-32) Anion Gap 10 (6-14) Blood Urea Nitrogen 41 mg/dL (8-26) Creatinine 2.5 mg/dL (0.7-1.3) Estimated GFR (Cockcroft-Gault) 25.4 Glucose Level 96 mg/dL (70-99) Calcium Level 9.2 mg/dL (8.5-10.1) Phosphorus Level 3.2 mg/dL (2.6-4.7) Albumin 3.3 g/dL (3.4-5.0) Microbiology 06/29/17 Gram Stain - Final, Complete Medications Current Medications Darbepoetin Huber (Aranesp) 60 mcg WEEKLYHS SQ ; Start 06/30/17 at 21:00 Vitals/I & O Vital Sign - Last 24 Hours 06/29/17 06/29/17 06/29/17 06/29/17 16:30 17:00 17:30 18:00 Pulse 80 109 109 102 Resp 26 B/P (MAP) 186/73 (110) 156/64 (94) 171/69 (103) 133/57 (82) Pulse Ox 98 98 98 97 O2 Delivery Nasal Cannula Nasal Cannula Nasal Cannula Nasal Cannula O2 Flow Rate 3.0 3.0 3.0 3.0 06/29/17 06/29/17 06/29/17 06/29/17 19:00 19:49 20:00 21:00 Temp 97.7 97.7 Pulse 106 114 105 Resp B/P (MAP) 141/54 (83) 118/64 (82) 106/71 Pulse Ox 97 97 O2 Delivery Nasal Cannula Bi-pap Nasal Cannula O2 Flow Rate 3.0 3.0 06/29/17 06/29/17 06/29/17 06/29/17 21:00 22:00 23:00 23:44 Pulse 108 88 89 Resp 22 B/P (MAP) 106/71 (83) 108/64 (79) 121/66 (84) Pulse Ox 97 97 100 O2 Delivery BiPAP/CPAP BiPAP/CPAP Nasal Cannula Bi-pap O2 Flow Rate 3.0 06/30/17 06/30/17 06/30/17 06/30/17 00:00 01:00 02:00 03:00 Temp 98.0 98.0 Pulse 94 90 92 92 Resp 22 B/P (MAP) 187/76 (113) 164/60 (94) 121/66 (84) 168/54 (92) Pulse Ox 100 100 100 100 O2 Delivery Nasal Cannula Nasal Cannula Nasal Cannula Nasal Cannula O2 Flow Rate 3.0 3.0 3.0 3.0 06/30/17 06/30/17 06/30/17 06/30/17 04:00 04:04 05:00 06:00 Temp 98.3 98.3 Pulse 92 94 96 Resp B/P (MAP) 186/61 (102) 185/59 (101) 154/61 (92) Pulse Ox 100 100 100 O2 Delivery Nasal Cannula Bi-pap Nasal Cannula Nasal Cannula O2 Flow Rate 3.0 3.0 3.0 06/30/17 06/30/17 06/30/17 06/30/17 07:00 08:00 08:00 08:00 Temp 98.6 98.6 Pulse 96 92 Resp 19 B/P (MAP) 170/58 (95) 189/61 (103) Pulse Ox 100 100 O2 Delivery Nasal Cannula Nasal Cannula Nasal Cannula O2 Flow Rate 3.0 3.0 3.0 3.0 06/30/17 06/30/17 06/30/17 06/30/17 09:00 09:08 09:09 10:00 Pulse 102 95 106 80 Resp 16 B/P (MAP) 192/70 (110) 192/70 192/70 155/78 (103) Pulse Ox 100 100 O2 Delivery Nasal Cannula Nasal Cannula O2 Flow Rate 3.0 3.0 06/30/17 06/30/17 06/30/17 06/30/17 11:00 12:00 12:00 12:00 Temp 98.1 98.1 Pulse 79 82 Resp 22 B/P (MAP) 163/62 (95) 168/61 (96) Pulse Ox 100 100 O2 Delivery Nasal Cannula Nasal Cannula Nasal Cannula O2 Flow Rate 3.0 3.0 3.0 3.0 06/30/17 06/30/17 13:00 14:00 Pulse 83 96 Resp 14 24 B/P (MAP) 166/68 (100) 189/60 (103) Pulse Ox 100 99 O2 Delivery Nasal Cannula Nasal Cannula O2 Flow Rate 3.0 3.0 Intake and Output 06/29/17 06/29/17 06/30/17 15:00 23:00 07:00 Intake Total 400 ml 1662.6 ml 1159 ml Output Total 328 ml 2155 ml 1120 ml Balance 72 ml -492.4 ml 39 ml ATILIO HUGHES MD Jun 30, 2017 16:23
[2017-06-30] MEDS ORDERED: OXYMETAZOLINE 0.05% NASAL SPRAY 30ML BOTTLE. NS PRN (18:00)
[2017-06-30] MEDS: FAMOTIDINE 20 MG TABLET. PO SCH (20:54)
[2017-06-30] MEDS ORDERED: INSULIN DETEMIR 300 UNITS/3 ML INSULN.PEN. SQ ONE (21:00)
[2017-06-30] MEDS ORDERED: DARBEPOETIN ALFA 60 MCG/0.3 ML DISP.SYRIN. SQ SCH (21:00)
[2017-06-30 22:08] LABS: BODY FLUID CREATININE 2.8 mg/dL (.)
[2017-07-01] VITALS (18 sets, daily range): BP systolic 106–168; BP diastolic 44–70
[2017-07-01] MEDS: fentaNYL PF VIAL 100 MCG/2 ML VIAL IV PRN (03:20)
[2017-07-01] MEDS: FUROSEMIDE INJ 100 MG in IV NORMAL SALINE 100ML 100 ML IV PRN (05:36)
[2017-07-01 06:02] LABS: CALCIUM 8.6 mg/dL (8.5-10.1); CREATININE 2.4 mg/dL (0.7-1.3); GFR 26.6; POTASSIUM 3.4 mmol/L (3.5-5.1)
--- NOTE | 2017-07-01 06:49 | PDOC ---
PULMONARY PROGRESS NOTES Subjective EXTUBATED 06/25 LESS SOA NOW ON N/C QHS BIPAP Vitals Vital Signs Date Time Temp Pulse Resp B/P (MAP) Pulse Ox O2 Delivery O2 Flow Rate FiO2 07/01/17 06:00 110 24 138/61 (86) 98 Room Air 07/01/17 04:00 99.0 99.0 07/01/17 03:50 3.0 ROS: No Chest Pain, No Abdominal Pain, No Increase Cough General: Alert Lungs: Clear Cardiovascular: S1, S2 Abdomen: Soft, Other (obese) Neuro Exam: Alert Extremities: Other (right lymphedema, left BKA) Skin: Warm Labs Laboratory Tests Test 06/29/17 13:54 06/29/17 15:45 06/29/17 20:55 06/30/17 05:30 Body Fluid Source Pleural Body Fluid Color Yellow Body Fluid Clarity Clear Body Fluid pH 7.49 Body Fluid Nucleated Cells 53 /cmm Body Fluid Mononuclear WBCs (%) 60 % Body Fluid Polymorphonuclear Cells 17 % Body Fluid Total RBCs Counted 1675 /cmm Body Fluid Other Cells (%) 23 % Body Fluid Glucose 144 mg/dL (.) Body Fluid Total Protein 1.6 g/dL (.) Body Fluid Albumin 1.0 g/dL (.) Body Fluid Lactate Dehydrogenase 62 IU/L (.) Body Fluid Amylase 12 U/L (.) Body Fluid Creatinine 2.8 mg/dL (.) Glucose (Fingerstick) 229 mg/dL (70-99) Sodium Level 147 mmol/L (136-145) Potassium Level 3.5 mmol/L (3.5-5.1) Chloride Level 107 mmol/L (98-107) Carbon Dioxide Level 30 mmol/L (21-32) Anion Gap 10 (6-14) Blood Urea Nitrogen 41 mg/dL (8-26) Creatinine 2.5 mg/dL (0.7-1.3) Estimated GFR (Cockcroft-Gault) 25.4 Glucose Level 96 mg/dL (70-99) Calcium Level 9.2 mg/dL (8.5-10.1) Phosphorus Level 3.2 mg/dL (2.6-4.7) Albumin 3.3 g/dL (3.4-5.0) Test 06/30/17 20:38 07/01/17 05:40 Glucose (Fingerstick) 87 mg/dL (70-99) White Blood Count 8.3 x10^3/uL (4.0-11.0) Red Blood Count 2.50 x10^6/uL (4.30-5.70) Hemoglobin 7.8 g/dL (13.0-17.5) Hematocrit 24.5 % (39.0-53.0) Mean Corpuscular Volume 98 fL (79-100) Mean Corpuscular Hemoglobin 31 pg (25-35) Mean Corpuscular Hemoglobin Concent 32 g/dL (31-37) Red Cell Distribution Width 20.2 % (11.5-14.5) Platelet Count 235 x10^3/uL (140-400) Sodium Level 148 mmol/L (136-145) Potassium Level 3.4 mmol/L (3.5-5.1) Chloride Level 108 mmol/L (98-107) Carbon Dioxide Level 30 mmol/L (21-32) Anion Gap 10 (6-14) Blood Urea Nitrogen 48 mg/dL (8-26) Creatinine 2.4 mg/dL (0.7-1.3) Estimated GFR (Cockcroft-Gault) 26.6 Glucose Level 88 mg/dL (70-99) Calcium Level 8.6 mg/dL (8.5-10.1) Laboratory Tests Test 06/30/17 20:38 07/01/17 05:40 Glucose (Fingerstick) 87 mg/dL (70-99) White Blood Count 8.3 x10^3/uL (4.0-11.0) Red Blood Count 2.50 x10^6/uL (4.30-5.70) Hemoglobin 7.8 g/dL (13.0-17.5) Hematocrit 24.5 % (39.0-53.0) Mean Corpuscular Volume 98 fL (79-100) Mean Corpuscular Hemoglobin 31 pg (25-35) Mean Corpuscular Hemoglobin Concent 32 g/dL (31-37) Red Cell Distribution Width 20.2 % (11.5-14.5) Platelet Count 235 x10^3/uL (140-400) Sodium Level 148 mmol/L (136-145) Potassium Level 3.4 mmol/L (3.5-5.1) Chloride Level 108 mmol/L (98-107) Carbon Dioxide Level 30 mmol/L (21-32) Anion Gap 10 (6-14) Blood Urea Nitrogen 48 mg/dL (8-26) Creatinine 2.4 mg/dL (0.7-1.3) Estimated GFR (Cockcroft-Gault) 26.6 Glucose Level 88 mg/dL (70-99) Calcium Level 8.6 mg/dL (8.5-10.1) Medications Active Scripts Medications Dose Route/Sig Max Daily Dose Days Date Category Amlodipine Besylate 5 Mg Tablet 10 Mg PO DAILY 06/22/17 Reported Azathioprine 50 Mg Tablet 4 Tab PO DAILY 06/22/17 Reported Docusate Sodium 100 Mg Capsule 1 Cap PO TID PRN PRN 06/22/17 Reported Ferrous Sulfate 325 Mg Tablet 1 Tab PO BIDAC 06/22/17 Reported Ondansetron Hcl 4 Mg Tablet 1 Tab PO PRN Q8HRS PRN 06/22/17 Reported Prednisone 10 Mg Tablet 5 Mg PO DAILY 06/22/17 Reported Thiamine Hcl 100 Mg Tablet 100 Mg PO 06/22/17 Reported Nystatin-Triamcinolone Cream (Nystatin/Triamcin) 15 Gm Cream..g. 1 Alexis TP BID 06/22/17 Reported Pantoprazole Sodium 40 Mg Tablet.dr 1 Tab PO DAILY 06/22/17 Reported Tacrolimus 0.5 Mg Capsule 0.5 Mg PO DAILY 06/22/17 Reported Tylenol (Acetaminophen) 325 Mg Tablet 1 Tab PO PRN Q6HRS PRN 06/22/17 Reported Haloperidol 0.5 Mg Tablet 0.25 Mg PO PRN Q8HRS PRN 06/22/17 Reported Metoprolol Tartrate 50 Mg Tablet 3 Tab PO BID 06/22/17 Reported Keflex (Cephalexin) 500 Mg Capsule 500 Mg PO QID 5 06/30/15 Rx Novolog Flexpen (Insulin Aspart) 100 Unit/1 Ml Insuln.pen 22 Unit SQ AC SUPPER 06/26/15 Reported Novolog Flexpen (Insulin Aspart) 100 Unit/1 Ml Insuln.pen 18 Unit SQ AC LUNCH 06/26/15 Reported Novolog Flexpen (Insulin Aspart) 100 Unit/1 Ml Insuln.pen 10 Unit SQ AC BREAKFAST 06/26/15 Reported Levothyroxine Sodium 88 Mcg Tablet 1 Tab PO DAILY 06/24/15 Reported Atorvastatin Calcium 10 Mg Tablet 1 Tab PO DAILY 06/24/15 Reported Loratadine 10 Mg Tablet 1 Tab PO DAILY 06/24/15 Reported Hydrochlorothiazide Tablet (Hydrochlorothiazide) 25 Mg Tablet 25 Mg PO DAILY 06/24/15 Reported Pepcid Ac (Famotidine) 20 Mg Tablet 20 Mg PO HS 06/24/15 Reported Tacrolimus 1 Mg Capsule 1 Mg PO BID 06/24/15 Reported Men's Multivitamin Gummies (Folic Acid/Multivit-Minerals) 200 Mcg Tab.chew 200 Mcg PO 06/24/15 Reported Aspirin 81 Mg Tab.chew 1 Tab PO DAILY 06/24/15 Reported Lantus (Insulin Glargine,Hum.rec.anlog) 100 Unit/1 Ml Vial 70 Unit SQ QHS 06/24/15 Reported Alendronate Sodium 70 Mg Tablet 70 Mg PO WEEKLY 06/24/15 Reported Impression . 1. Acute hypercapnic respiratory failure secondary to multifactorial in nature 2. Abnormal ct chest with EFFUSIONS S/P CHEST TUBE 3. Renal transplant and acute kidney FAILURE 4. Methicillin-resistant Staphylococcus aureus infection. 5. Hypernatremia 6. Severe protein-calorie malnutrition POA 7. Morbid obesity 8. Suspect BEVERLY/OHS 9. Acute/Chronic Cor Pulmonale 10. Chronic Lower Ext Lymphedema 11. Bilateral effusion IMPRESSION: CT 06/28 1. Ongoing moderate sized bilateral pleural effusions with considerable underlying atelectasis, worse in the lower lobes. 2. Moderate bilateral interlobular septal thickening compatible with interstitial pulmonary edema. 3. Extensive calcific plaquing of the aorta and coronary arteries. Plan . 200 CC DRAINED IN PAST 24 HOURS PRN BIPAP/BIPAP QHS 2 LITERS OF FLUID DRAINED IN FIRST 24 HOURS CONTINUE IV DOP/LASIX/DOBUTAMINE HE HAS BEEN IN HOSPITAL FOR OVE 3 MONTHS, CHANGE OF RETURNING TO NORMAL ACTIVITY FOR HIM IS SLIM TO NONE SPOKE WITH MULTIPLE FAMILY MEMBERS AT BEDSIDE SEVERAL DAYS AGO, PALLIATIVE CARE HAS HAD MULTIPLE CONVERSATION WITH FAMILY AND PATIENT I DON'T THINK SOME MEMBERS OF THE FAMILY COMPREHEND THE COMPLEXITY OF THIS CASE AND THE POSSIBLE POOR OUTCOME. SHARATH VALLE MD Jul 01, 2017 06:49
[2017-07-01 07:04] LABS: BASO # 0.1 x10^3/uL (0.0-0.2); BASO % 1 % (0-3); EOS % 6 % (0-3); HEMATOCRIT 24.2 % (39.0-53.0); HEMOGLOBIN 7.7 g/dL (13.0-17.5); LYMPH # 1.5 x10^3/uL (1.0-4.8); LYMPH % 19 % (24-48); MEAN CORPUSCULAR HEMOGLOBIN 31 pg (25-35); MEAN CORPUSCULAR HGB CONC 32 g/dL (31-37); MEAN CORPUSCULAR VOLUME 97 fL (79-100); MONO % 12 % (0-9); NEUT % 63 % (31-73); PLATELET COUNT 232 x10^3/uL (140-400); RED BLOOD COUNT 2.48 x10^6/uL (4.30-5.70); RED CELL DISTRIBUTION WIDTH 20.3 % (11.5-14.5); WHITE BLOOD COUNT 7.9 x10^3/uL (4.0-11.0)
[2017-07-01] MEDS: ISOSORBIDE MONONITRATE ER 30 MG TAB.ER.24H PO SCH (07:34)
--- NOTE | 2017-07-01 07:54 | PDOC ---
PROGRESS NOTES Subjective Subjective Dyspnea improved. Objective Objective Vital Signs Date Time Temp Pulse Resp B/P (MAP) Pulse Ox O2 Delivery O2 Flow Rate FiO2 07/01/17 06:00 110 24 138/61 (86) 98 Room Air 07/01/17 04:00 99.0 99.0 07/01/17 03:50 3.0 Intake and Output 07/01/17 07:00 Intake Total 971 ml Output Total 3494 ml Balance -2523 ml IV Total 768 ml Tube Feeding 203 ml Output Urine Total 3090 ml Emesis 100 ml Chest Tube Drainage Total 304 ml Physical Exam Abdomen: Soft, Other (obese) Heart: Other (AFIB rate controlled; distant heart sounds) Extremities: No clubbing, No cyanosis General: Alert, Oriented X3, Cooperative, No acute distress HEENT: Atraumatic Lungs: Other (basilar crackles; intubated with mechanical ventilator) MUSCULOSKELETAL: Other (LAKA) Neuro: Other (sedated) Skin: No rashes, Other (chronic venous stasis changes) Assessment Assessment 1. Acute on chronic respiratory failure: extubated, doing better. Symptoms improved s/p thoracentesis and better diuresis. Diuretics on hold per nephrology team. Pulmonary following 2. Acute on chronic diastolic CHF: Normal EF 55% with normal wall motion and moderate aortic insufficiency. Improved diuresis after initiating dopamine and dobutamine infusions. 3. Uncontrolled BEVERLY/moderate pulmonary HTN 4. Metabolic/hypoxic encephalopathy - improved 5. Chronic AFIB/LBBB: remains rate controlled. Patient refused long-term anticoagulation in the past 6. REJI on CKD: per nephrology 7. Renal transplant recipient with chronic immunosuppression 8. HTN: Blood pressure better controlled. 9. DM2/HLP - per IM 10. Hypothyroidism 11. PVD: severe lymphedema with dermatitis. LAKA 12. Protein malnutrition 13. Morbid obesity Plan Plan of Care Problems Medical Problems: (1) Acute encephalopathy Status: Acute (2) Pulmonary edema Status: Acute (3) Respiratory acidosis Status: Acute Comment Review of Relevant I have reviewed the following items buzz (where applicable) has been applied. Labs Laboratory Tests Test 06/30/17 20:38 07/01/17 05:40 Glucose (Fingerstick) 87 mg/dL (70-99) White Blood Count 7.9 x10^3/uL (4.0-11.0) Red Blood Count 2.48 x10^6/uL (4.30-5.70) Hemoglobin 7.7 g/dL (13.0-17.5) Hematocrit 24.2 % (39.0-53.0) Mean Corpuscular Volume 97 fL (79-100) Mean Corpuscular Hemoglobin 31 pg (25-35) Mean Corpuscular Hemoglobin Concent 32 g/dL (31-37) Red Cell Distribution Width 20.3 % (11.5-14.5) Platelet Count 232 x10^3/uL (140-400) Neutrophils (%) (Auto) 63 % (31-73) Lymphocytes (%) (Auto) 19 % (24-48) Monocytes (%) (Auto) 12 % (0-9) Eosinophils (%) (Auto) 6 % (0-3) Basophils (%) (Auto) 1 % (0-3) Neutrophils # (Auto) 5.0 x10^3uL (1.8-7.7) Lymphocytes # (Auto) 1.5 x10^3/uL (1.0-4.8) Monocytes # (Auto) 1.0 x10^3/uL (0.0-1.1) Eosinophils # (Auto) 0.5 x10^3/uL (0.0-0.7) Basophils # (Auto) 0.1 x10^3/uL (0.0-0.2) Sodium Level 148 mmol/L (136-145) Potassium Level 3.4 mmol/L (3.5-5.1) Chloride Level 108 mmol/L (98-107) Carbon Dioxide Level 30 mmol/L (21-32) Anion Gap 10 (6-14) Blood Urea Nitrogen 48 mg/dL (8-26) Creatinine 2.4 mg/dL (0.7-1.3) Estimated GFR (Cockcroft-Gault) 26.6 Glucose Level 88 mg/dL (70-99) Calcium Level 8.6 mg/dL (8.5-10.1) Microbiology 06/29/17 Gram Stain - Final, Complete Medications Current Medications Darbepoetin Huber (Aranesp) 60 mcg WEEKLYHS SQ Last administered on 06/30/17t 20 :55; Start 06/30/17 at 21:00 Insulin Detemir (Levemir) 30 units 1X ONCE SQ Last administered on 06/30/17 21:04; Start 06/30/17 at 21:00; Stop 06/30/17 at 21:01; Status DC Insulin Detemir (Levemir) 55 units QHS SQ ; Start 07/01/17 at 21:00 Oxymetazoline HCl (Afrin) 2 spray PRN Q1HR PRN NS Until bleed has stopped Last administered on 06/30/17 18:15; Start 06/30/17 at 18:00 Vitals/I & O Vital Sign - Last 24 Hours 06/30/17 06/30/17 06/30/17 06/30/17 08:00 08:00 08:00 09:00 Temp 98.6 98.6 Pulse 92 102 Resp 19 26 B/P (MAP) 189/61 (103) 192/70 (110) Pulse Ox 100 100 O2 Delivery Nasal Cannula Nasal Cannula Nasal Cannula O2 Flow Rate 3.0 3.0 3.0 3.0 06/30/17 06/30/17 06/30/17 06/30/17 09:08 09:09 10:00 11:00 Pulse 95 106 80 79 Resp 16 12 B/P (MAP) 192/70 192/70 155/78 (103) 163/62 (95) Pulse Ox 100 100 O2 Delivery Nasal Cannula Nasal Cannula O2 Flow Rate 3.0 3.0 06/30/17 06/30/17 06/30/17 06/30/17 12:00 12:00 12:00 13:00 Temp 98.1 98.1 Pulse 82 83 Resp 22 14 B/P (MAP) 168/61 (96) 166/68 (100) Pulse Ox 100 100 O2 Delivery Nasal Cannula Nasal Cannula Nasal Cannula O2 Flow Rate 3.0 3.0 3.0 3.0 06/30/17 06/30/17 06/30/17 06/30/17 14:00 15:00 16:00 16:00 Temp 98.7 98.7 Pulse 96 96 100 Resp 24 24 25 B/P (MAP) 189/60 (103) 188/69 (108) 188/64 (105) Pulse Ox 99 96 98 O2 Delivery Nasal Cannula Nasal Cannula Nasal Cannula O2 Flow Rate 3.0 3.0 3.0 3.0 06/30/17 06/30/17 06/30/17 06/30/17 16:00 17:00 18:00 18:12 Pulse 100 110 105 Resp 24 24 B/P (MAP) 186/66 (106) 197/67 (110) 197/67 Pulse Ox 99 94 O2 Delivery Room Air Nasal Cannula Nasal Cannula O2 Flow Rate 3.0 3.0 06/30/17 06/30/17 06/30/17 06/30/17 19:00 19:55 20:00 20:54 Temp 98.0 98.0 Pulse 106 102 110 Resp 24 24 B/P (MAP) 188/59 (102) 158/61 (93) 158/61 Pulse Ox 97 97 O2 Delivery Nasal Cannula Room Air Nasal Cannula O2 Flow Rate 3.0 3.0 06/30/17 06/30/17 06/30/17 07/01/17 21:00 22:00 23:00 00:00 Temp 98.9 98.9 Pulse 110 102 106 98 Resp 24 24 24 20 B/P (MAP) 166/69 (101) 157/61 (93) 142/54 (83) 139/67 (91) Pulse Ox 98 99 99 99 O2 Delivery Nasal Cannula Nasal Cannula Nasal Cannula Room Air O2 Flow Rate 3.0 3.0 3.0 07/01/17 07/01/17 07/01/17 07/01/17 00:01 00:02 01:00 02:00 Pulse 96 104 Resp 24 21 B/P (MAP) 140/58 (85) 139/63 (88) Pulse Ox 99 99 O2 Delivery Room Air Room Air Room Air O2 Flow Rate 3.0 07/01/17 07/01/17 07/01/17 07/01/17 03:00 03:20 03:50 04:00 Temp 99.0 99.0 Pulse 102 97 Resp 24 20 26 B/P (MAP) 161/52 (88) 108/56 (73) Pulse Ox 99 99 99 99 O2 Delivery Room Air Room Air Room Air Room Air O2 Flow Rate 3.0 07/01/17 07/01/17 07/01/17 04:12 05:00 06:00 Pulse 106 110 Resp 24 24 B/P (MAP) 124/53 (76) 138/61 (86) Pulse Ox 100 98 O2 Delivery Room Air Room Air Room Air Intake and Output 06/30/17 06/30/17 07/01/17 15:00 23:00 07:00 Intake Total 203 ml 402 ml 366 ml Output Total 1275 ml 1314 ml 905 ml Balance -1072 ml -912 ml -539 ml ATILIO HUGHES MD Jul 01, 2017 07:54
[2017-07-01] MEDS ORDERED: ONDANSETRON PF 4 MG/2 ML VIAL. IV PRN (08:00)
--- NOTE | 2017-07-01 09:23 | RAD ---
AP chest. History: Effusion AP view was taken of the chest. There is a left pleural effusion. Central line is unchanged. Heart is enlarged. Right effusion has mildly improved. There is atelectasis in the left lung base. There are no new infiltrates. Impression: 1. Mild improvement on the right. 2. Persistent left effusion and basilar atelectasis.
[2017-07-01] MEDS: ATORVASTATIN CALCIUM 10 MG TABLET. PO SCH (09:45)
[2017-07-01] MEDS: TACROLIMUS 1 MG CAPSULE PO SCH ×2 (09:45→21:19)
[2017-07-01] MEDS: LEVOTHYROXINE 88 MCG TABLET PO SCH (09:45)
[2017-07-01] MEDS: ASPIRIN CHEWABLE 81 MG TABLET. PO SCH (09:46)
[2017-07-01] MEDS: azaTHIOprine 50 MG TABLET PO SCH (09:46)
[2017-07-01] MEDS: CETIRIZINE HCL 10 MG TABLET. PO SCH (09:46)
[2017-07-01] MEDS: predniSONE 20 MG TABLET PO SCH (09:46)
[2017-07-01] MEDS: ENOXAPARIN 40 MG/0.4 ML SYRINGE. SQ SCH (09:46)
[2017-07-01] MEDS: METOPROLOL TART IMMED RELEASE 50 MG TABLET. PO SCH ×2 (09:46→21:29)
[2017-07-01] MEDS: NYSTATIN TOPICAL POWDER 15GM BOTTLE. TP SCH ×2 (09:47→21:19)
[2017-07-01] MEDS ORDERED: IV NORMAL SALINE 1000ML BAG 1,000 ML IV ONE (11:15)
--- NOTE | 2017-07-01 11:27 | PDOC ---
Renal-Progress Notes Subjective Notes Notes SITTING UP FEELING WELL History of Present Illness Hx of present illness STABLE Vitals Vitals Vital Signs Date Time Temp Pulse Resp B/P (MAP) Pulse Ox O2 Delivery O2 Flow Rate FiO2 07/01/17 10:00 116 20 107/44 (65) 100 Room Air 07/01/17 08:00 98.8 98.8 07/01/17 08:00 3.0 Weight Weight [ ] I.O. Intake and Output Intake and Output 07/01/17 07:00 Intake Total 971 ml Output Total 3794 ml Balance -2823 ml IV Total 768 ml Tube Feeding 203 ml Output Urine Total 3390 ml Emesis 100 ml Chest Tube Drainage Total 304 ml Labs Labs Laboratory Tests Test 06/30/17 20:38 07/01/17 05:40 Glucose (Fingerstick) 87 mg/dL (70-99) White Blood Count 7.9 x10^3/uL (4.0-11.0) Red Blood Count 2.48 x10^6/uL (4.30-5.70) Hemoglobin 7.7 g/dL (13.0-17.5) Hematocrit 24.2 % (39.0-53.0) Mean Corpuscular Volume 97 fL (79-100) Mean Corpuscular Hemoglobin 31 pg (25-35) Mean Corpuscular Hemoglobin Concent 32 g/dL (31-37) Red Cell Distribution Width 20.3 % (11.5-14.5) Platelet Count 232 x10^3/uL (140-400) Neutrophils (%) (Auto) 63 % (31-73) Lymphocytes (%) (Auto) 19 % (24-48) Monocytes (%) (Auto) 12 % (0-9) Eosinophils (%) (Auto) 6 % (0-3) Basophils (%) (Auto) 1 % (0-3) Neutrophils # (Auto) 5.0 x10^3uL (1.8-7.7) Lymphocytes # (Auto) 1.5 x10^3/uL (1.0-4.8) Monocytes # (Auto) 1.0 x10^3/uL (0.0-1.1) Eosinophils # (Auto) 0.5 x10^3/uL (0.0-0.7) Basophils # (Auto) 0.1 x10^3/uL (0.0-0.2) Sodium Level 148 mmol/L (136-145) Potassium Level 3.4 mmol/L (3.5-5.1) Chloride Level 108 mmol/L (98-107) Carbon Dioxide Level 30 mmol/L (21-32) Anion Gap 10 (6-14) Blood Urea Nitrogen 48 mg/dL (8-26) Creatinine 2.4 mg/dL (0.7-1.3) Estimated GFR (Cockcroft-Gault) 26.6 Glucose Level 88 mg/dL (70-99) Calcium Level 8.6 mg/dL (8.5-10.1) Micro Micro Microbiology 06/29/17 Gram Stain - Final, Complete Review of Systems Constitutional: yes: weakness, alert, oriented Ears/Nose/Throat: Yes: no symptom reported Eyes: Yes: no symptom reported Pulmonary: Yes dyspnea Cardiovascular: Yes no symptom reported Gastrointestional: Yes: constipation Genitourinary: Yes: no symptom reported Musculoskeletal: Yes: muscle stiffness Skin: Yes color change Endocrine: Yes: no symptom reported Physical Exam General Appearance: no apparent distress Skin: warm Respiratory: decreased breath sounds Abdomen: soft, bowel sounds present Genitourinary: bladder flat Extremities: pulses present, other (LEFT BKA) Neurology: alert, follow commands Assessment Assessment IMP REJI-ATN-CR OF 2.4 TODAY CKD - CHRONIC ALLOGRAFT NEPHROPATHY WITH CR OF 1.9-2.4 AT BASELINE HX OR RENAL TRANSPLANT 15 YEARS AGO-LIVING RELATED(SON) PLEURAL EFFUSION-S/P RIGHT THORACOSTOMY TUBE DIASTOLIC CHF-IMPROVING ACUTE ON CHRONIC RESP FAILURE-S/P EXTUBATION ANEMIA OF CHRONIC DISEASE CHRONIC AFIB BEVERLY/PULM HTN RENAL MASS WITH ? METS LE LYMPHEDEMA S/P LEFT BKA EARLIER THIS YEAR SEVERE DECONDITIONING CHRONIC IMMUNOSUPPRESSION MILD HYPOKALEMIA-WILL STOP LASIX PLAN STOP LASIX GTT 1 LITER IVF NS PROB RESUME ORAL LASIX IN A DAY OR TWO CONT WITH AND DOP CONT ARANESP CONT PROGRAF AND IMURAN ALEJANDRO RIOS MD Jul 01, 2017 11:27
[2017-07-01] MEDS ORDERED: SILVER NITRATE STICK TP ONE (12:06)
--- NOTE | 2017-07-01 15:30 | PDOC ---
PROGRESS NOTES Chief Complaint Chief Complaint Acute hypercarbic, hypoxic respiratory failure History of Present Illness History of Present Illness Pt resting in ICU has not slept since admission. at bedside DW RN- Pulled out NGT last night, epistxis, no flushes. Discontinued lasix, low volume urine output. Nausea and vomiting blood. Nurse reports ICU psychosis Seen by ENT and Nephrology Nephrology stoped lasix and placed on 1L NS 75 mL, due to low urine output Vitals Vitals Vital Signs Date Time Temp Pulse Resp B/P (MAP) Pulse Ox O2 Delivery O2 Flow Rate FiO2 07/01/17 12:00 3.0 07/01/17 12:00 Room Air 07/01/17 12:00 98 23 110/45 (66) 100 07/01/17 08:00 98.8 98.8 Physical Exam Physical Exam General: Other (Asleep) Heart: Other (AFIB rate controlled; distant heart sounds) Lungs: Clear Abdomen: Soft, Other (obese) Extremities: No clubbing, No cyanosis Skin: No rashes, Other (chronic venous stasis changes) Labs LABS Laboratory Tests Test 06/30/17 20:38 07/01/17 05:40 Glucose (Fingerstick) 87 mg/dL (70-99) White Blood Count 7.9 x10^3/uL (4.0-11.0) Red Blood Count 2.48 x10^6/uL (4.30-5.70) Hemoglobin 7.7 g/dL (13.0-17.5) Hematocrit 24.2 % (39.0-53.0) Mean Corpuscular Volume 97 fL (79-100) Mean Corpuscular Hemoglobin 31 pg (25-35) Mean Corpuscular Hemoglobin Concent 32 g/dL (31-37) Red Cell Distribution Width 20.3 % (11.5-14.5) Platelet Count 232 x10^3/uL (140-400) Neutrophils (%) (Auto) 63 % (31-73) Lymphocytes (%) (Auto) 19 % (24-48) Monocytes (%) (Auto) 12 % (0-9) Eosinophils (%) (Auto) 6 % (0-3) Basophils (%) (Auto) 1 % (0-3) Neutrophils # (Auto) 5.0 x10^3uL (1.8-7.7) Lymphocytes # (Auto) 1.5 x10^3/uL (1.0-4.8) Monocytes # (Auto) 1.0 x10^3/uL (0.0-1.1) Eosinophils # (Auto) 0.5 x10^3/uL (0.0-0.7) Basophils # (Auto) 0.1 x10^3/uL (0.0-0.2) Sodium Level 148 mmol/L (136-145) Potassium Level 3.4 mmol/L (3.5-5.1) Chloride Level 108 mmol/L (98-107) Carbon Dioxide Level 30 mmol/L (21-32) Anion Gap 10 (6-14) Blood Urea Nitrogen 48 mg/dL (8-26) Creatinine 2.4 mg/dL (0.7-1.3) Estimated GFR (Cockcroft-Gault) 26.6 Glucose Level 88 mg/dL (70-99) Calcium Level 8.6 mg/dL (8.5-10.1) Review of Systems Review of Systems Unobtainable Assessment and Plan Assessmemt and Plan Assessment: Acute encephalopathy Pulmonary edema Respiratory acidosis DM AMS Hx of BCC Plan: Continue Dobutamine and Dopamine Continue Breathing Treatments Continue ICU monitoring Continue IVF Continue tube placement and drain Continue Home Meds Await further input from pulmonology, nephrology Recheck Labs Problems: Comment Review of Relevant I have reviewed the following items buzz (where applicable) has been applied. Labs Laboratory Tests Test 06/29/17 15:45 06/29/17 20:55 06/30/17 05:30 06/30/17 20:38 Body Fluid Glucose 144 mg/dL (.) Body Fluid Total Protein 1.6 g/dL (.) Body Fluid Albumin 1.0 g/dL (.) Body Fluid Lactate Dehydrogenase 62 IU/L (.) Body Fluid Amylase 12 U/L (.) Body Fluid Creatinine 2.8 mg/dL (.) Glucose (Fingerstick) 229 mg/dL (70-99) 87 mg/dL (70-99) Sodium Level 147 mmol/L (136-145) Potassium Level 3.5 mmol/L (3.5-5.1) Chloride Level 107 mmol/L (98-107) Carbon Dioxide Level 30 mmol/L (21-32) Anion Gap 10 (6-14) Blood Urea Nitrogen 41 mg/dL (8-26) Creatinine 2.5 mg/dL (0.7-1.3) Estimated GFR (Cockcroft-Gault) 25.4 Glucose Level 96 mg/dL (70-99) Calcium Level 9.2 mg/dL (8.5-10.1) Phosphorus Level 3.2 mg/dL (2.6-4.7) Albumin 3.3 g/dL (3.4-5.0) Test 07/01/17 05:40 White Blood Count 7.9 x10^3/uL (4.0-11.0) Red Blood Count 2.48 x10^6/uL (4.30-5.70) Hemoglobin 7.7 g/dL (13.0-17.5) Hematocrit 24.2 % (39.0-53.0) Mean Corpuscular Volume 97 fL (79-100) Mean Corpuscular Hemoglobin 31 pg (25-35) Mean Corpuscular Hemoglobin Concent 32 g/dL (31-37) Red Cell Distribution Width 20.3 % (11.5-14.5) Platelet Count 232 x10^3/uL (140-400) Neutrophils (%) (Auto) 63 % (31-73) Lymphocytes (%) (Auto) 19 % (24-48) Monocytes (%) (Auto) 12 % (0-9) Eosinophils (%) (Auto) 6 % (0-3) Basophils (%) (Auto) 1 % (0-3) Neutrophils # (Auto) 5.0 x10^3uL (1.8-7.7) Lymphocytes # (Auto) 1.5 x10^3/uL (1.0-4.8) Monocytes # (Auto) 1.0 x10^3/uL (0.0-1.1) Eosinophils # (Auto) 0.5 x10^3/uL (0.0-0.7) Basophils # (Auto) 0.1 x10^3/uL (0.0-0.2) Sodium Level 148 mmol/L (136-145) Potassium Level 3.4 mmol/L (3.5-5.1) Chloride Level 108 mmol/L (98-107) Carbon Dioxide Level 30 mmol/L (21-32) Anion Gap 10 (6-14) Blood Urea Nitrogen 48 mg/dL (8-26) Creatinine 2.4 mg/dL (0.7-1.3) Estimated GFR (Cockcroft-Gault) 26.6 Glucose Level 88 mg/dL (70-99) Calcium Level 8.6 mg/dL (8.5-10.1) Laboratory Tests Test 06/30/17 20:38 07/01/17 05:40 Glucose (Fingerstick) 87 mg/dL (70-99) White Blood Count 7.9 x10^3/uL (4.0-11.0) Red Blood Count 2.48 x10^6/uL (4.30-5.70) Hemoglobin 7.7 g/dL (13.0-17.5) Hematocrit 24.2 % (39.0-53.0) Mean Corpuscular Volume 97 fL (79-100) Mean Corpuscular Hemoglobin 31 pg (25-35) Mean Corpuscular Hemoglobin Concent 32 g/dL (31-37) Red Cell Distribution Width 20.3 % (11.5-14.5) Platelet Count 232 x10^3/uL (140-400) Neutrophils (%) (Auto) 63 % (31-73) Lymphocytes (%) (Auto) 19 % (24-48) Monocytes (%) (Auto) 12 % (0-9) Eosinophils (%) (Auto) 6 % (0-3) Basophils (%) (Auto) 1 % (0-3) Neutrophils # (Auto) 5.0 x10^3uL (1.8-7.7) Lymphocytes # (Auto) 1.5 x10^3/uL (1.0-4.8) Monocytes # (Auto) 1.0 x10^3/uL (0.0-1.1) Eosinophils # (Auto) 0.5 x10^3/uL (0.0-0.7) Basophils # (Auto) 0.1 x10^3/uL (0.0-0.2) Sodium Level 148 mmol/L (136-145) Potassium Level 3.4 mmol/L (3.5-5.1) Chloride Level 108 mmol/L (98-107) Carbon Dioxide Level 30 mmol/L (21-32) Anion Gap 10 (6-14) Blood Urea Nitrogen 48 mg/dL (8-26) Creatinine 2.4 mg/dL (0.7-1.3) Estimated GFR (Cockcroft-Gault) 26.6 Glucose Level 88 mg/dL (70-99) Calcium Level 8.6 mg/dL (8.5-10.1) Microbiology 06/29/17 Gram Stain - Final, Complete Medications Current Medications Etomidate (Amidate) 20 mg STK-MED ONCE IV ; Start 06/22/17 at 05:47; Stop at 05:48; Status DC Rocuronium [place] (Zemuron) 50 mg STK-MED ONCE .ROUTE ; Start 06/22/17 at 05:48 ; Stop 06/22/17 at 05:49; Status DC Propofol 50 ml @ As Directed STK-MED ONCE IV ; Start 06/22/17 at 06:15; Stop at 06:16; Status DC Propofol 100 ml @ 0 mls/hr CONT PRN IV SEE I/O RECORD Last administered on 06/25 03:20; Start 06/22/17 at 06:30 Ondansetron HCl (Zofran) 4 mg PRN Q8HRS PRN IV NAUSEA/VOMITING; Start 06/22/17 at 06:45; Stop 06/23/17 at 06:44; Status DC Fentanyl Citrate (Fentanyl 2ml Vial) 50 mcg PRN Q1HR PRN IV PAIN Last administered on 06/22/17 07:04; Start 06/22/17 at 06:45; Stop 06/23/17 at 06:44 ; Status DC Sodium Chloride 1,000 ml @ 75 mls/hr [id number] IV ; Start 06/22/17 at 06:45; Stop 06/22/17 at 19:47; Status DC Acetaminophen (Tylenol) 650 mg PRN Q4HRS PRN PO FEVER; Start 06/22/17 at 06:45 ; Stop 06/23/17 at 06:44; Status DC Midazolam HCl (Versed) 2 mg STK-MED ONCE .ROUTE ; Start 06/22/17 at 07:17; Stop 06/22/17 at 07:18; Status DC Midazolam HCl 100 ml @ 0 mls/hr CONT PRN IV SEE I/O RECORD Last administered on 06/22/17 23:38; Start 06/22/17 at 07:30 Midazolam HCl (Versed) 2 mg 1X ONCE IV Last administered on 06/22/17 07:30; Start 06/22/17 at 07:30; Stop 06/22/17 at 07:31; Status DC Norepinephrine Bitartrate 250 ml @ As Directed STK-MED ONCE IV ; Start at 08:27; Stop 06/22/17 at 08:28; Status DC Norepinephrine Bitartrate 250 ml @ 0 mls/hr CONT PRN IV SEE I/O RECORD Last administered on 06/22/17 13:02; Start 06/22/17 at 08:30 Sodium Chloride 1,000 ml @ 125 mls/hr Q8H IV Last administered on 06/23/17 08 :21; Start 06/22/17 at 11:00; Stop 06/23/17 at 14:28; Status DC Sodium Chloride 1,000 ml @ 999 mls/hr 1X ONCE IV Last administered on 14:32; Start 06/22/17 at 10:45; Stop 06/22/17 at 11:45; Status DC Vancomycin HCl (Vanco Per Pharmacy) 1 each PRN DAILY PRN MC SEE COMMENTS Last administered on 06/26/17 15:34; Start 06/22/17 at 11:00; Stop 06/27/17 at 14:42 ; Status DC Piperacillin Sod/ Tazobactam Sod (Zosyn Per Pharmacy) 1 each PRN DAILY PRN MC SEE COMMENTS; Start 06/22/17 at 11:00; Stop 06/26/17 at 08:38; Status DC Aspirin (Children'S Aspirin) 81 mg DAILY PO Last administered on 07/01/17 09: 46; Start 06/22/17 at 12:00 Atorvastatin Calcium (Lipitor) 10 mg DAILY PO Last administered on 07/01/17 09:45; Start 06/22/17 at 12:00 Azathioprine (Imuran) 50 mg DAILY PO Last administered on 07/01/17 09:46; Start 06/22/17 at 12:00 Famotidine (Pepcid) 20 mg HS PO Last administered on 06/30/17 20:54; Start at 21:00 Levothyroxine Sodium (Synthroid) 88 mcg DAILYAC PO Last administered on 09:45; Start 06/22/17 at 12:00 Prednisone (Prednisone) 20 mg DAILY PO Last administered on 07/01/17 09:46; Start 06/22/17 at 12:00 Insulin Detemir (Levemir) 70 units QHS SQ ; Start 06/22/17 at 21:00; Stop at 21:10; Status DC Cetirizine HCl (ZyrTEC) 10 mg DAILY PO Last administered on 07/01/17 09:46; Start 06/22/17 at 12:00 Metoprolol Tartrate (Lopressor) 100 mg BID PO ; Start 06/22/17 at 12:00; Stop 06/22/17 at 18:33; Status DC Tacrolimus (Prograf) 1 mg BID PO Last administered on 07/01/17 09:45; Start 06/22/17 at 12:00 Vancomycin HCl 2 gm/Dextrose/ Sodium Chloride 500 ml @ 250 mls/hr 1X ONCE IV Last administered on 06/22/17 13:04; Start 06/22/17 at 11:30; Stop 06/22/17 at 13:29; Status DC Piperacillin Sod/ Tazobactam Sod (Zosyn) 4.5 gm Q6HRS IVP Last administered on 06/27/17 05:51; Start 06/22/17 at 12:00; Stop 06/27/17 at 14:37; Status DC Vancomycin HCl 2 gm/Dextrose/ Sodium Chloride 500 ml @ 250 mls/hr Q24H IV ; Start 06/23/17 at 13:00; Stop 06/23/17 at 13:00; Status DC Vancomycin HCl 1 each 1X ONCE MC Last administered on 06/24/17 12:30; Start 06/24/17 at 12:30; Stop 06/24/17 at 12:31; Status DC Metoprolol Tartrate (Lopressor) 50 mg BID PO Last administered on 07/01/17 09 :46; Start 06/22/17 at 21:00 Albumin Human 200 ml @ 100 mls/hr TID IV Last administered on 06/22/17 20:44 ; Start 06/22/17 at 21:00; Stop 06/23/17 at 02:42; Status DC Insulin Detemir (Levemir) 70 units QHS SQ Last administered on 06/24/17 21:53 ; Start 06/23/17 at 21:00; Stop 06/25/17 at 10:40; Status DC Insulin Detemir (Levemir) 30 units 1X ONCE SQ Last administered on 06/22/17 21:18; Start 06/22/17 at 21:15; Stop 06/22/17 at 21:16; Status DC Albumin Human 200 ml @ 100 mls/hr TID IV ; Start 06/23/17 at 03:00; Stop at 03:00; Status DC Albumin Human 200 ml @ 100 mls/hr Q6HRS IV Last administered on 06/24/17 05: 47; Start 06/23/17 at 06:00; Stop 06/24/17 at 07:59; Status DC Vancomycin HCl 2 gm/Dextrose/ Sodium Chloride 500 ml @ 250 mls/hr Q24H IV Last administered on 06/24/17 14:43; Start 06/23/17 at 13:00; Stop 06/25/17 at 08:36; Status DC Magnesium Sulfate/ Dextrose 50 ml @ 25 mls/hr PRN DAILY PRN IV for Mag < 1.7 on am labs Last administered on 06/25/17 10:43; Start 06/23/17 at 14:30 Fentanyl Citrate (Fentanyl 2ml Vial) 25 mcg PRN Q4HRS PRN IV PAIN Last administered on 07/01/17 03:20; Start 06/23/17 at 15:45 Magnesium Sulfate/ Dextrose 50 ml @ 25 mls/hr 1X ONCE IV Last administered on 06/24/17 06:32; Start 06/24/17 at 06:30; Stop 06/24/17 at 08:29; Status DC Potassium Phosphate 13.6 mmol/Sodium Chloride 104.5333 ml @ 52.267 m... Q2H IV Last administered on 06/24/17 18:07; Start 06/24/17 at 11:00; Stop 06/24/17 at 16:59; Status DC Furosemide (Lasix) 20 mg 1X ONCE IVP Last administered on 06/24/17 12:59; Start 06/24/17 at 11:15; Stop 06/24/17 at 11:16; Status DC Dextrose (Dextrose 50%-Water Syringe) 25 gm STK-MED ONCE IV ; Start 06/25/17 at 05:58; Stop 06/25/17 at 05:59; Status DC Dextrose (Dextrose 50%-Water Syringe) 12.5 gm PRN Q15MIN PRN IV SEE COMMENTS Last administered on 06/27/17 09:49; Start 06/25/17 at 06:15 Chlorhexidine Gluconate (Peridex) 15 ml BID SWSP ; Start 06/25/17 at 21:00; Stop 06/26/17 at 08:42; Status DC Vancomycin HCl 2 gm/Dextrose/ Sodium Chloride 500 ml @ 250 mls/hr Q48H IV Last administered on 06/26/17 13:17; Start 06/26/17 at 13:00; Stop 06/27/17 at 14:37; Status DC Insulin Detemir (Levemir) 55 units QHS SQ Last administered on 06/29/17 20:58 ; Start 06/25/17 at 21:00; Stop 06/30/17 at 20:48; Status DC Enoxaparin Sodium (Lovenox 40mg Syringe) 40 mg BID SQ Last administered on 06/28 09:33; Start 06/25/17 at 12:00; Stop 06/28/17 at 10:04; Status DC Nystatin (Nystop) 1 ana BID TP Last administered on 07/01/17 09:47; Start at 21:00 Isosorbide Mononitrate (Imdur) 30 mg DAILY PO ; Start 06/26/17 at 09:00 Amino Acids/ Glycerin/ Electrolytes 1,000 ml @ 80 mls/hr [id number] IV ; Start at 09:15; Stop 06/26/17 at 10:44; Status DC Sodium Chloride 500 ml @ 250 mls/hr 1X ONCE IV Last administered on 23:30; Start 06/26/17 at 23:45; Stop 06/27/17 at 01:44; Status DC Sodium Chloride 250 ml @ 250 mls/hr 1X ONCE IV Last administered on 03:00; Start 06/27/17 at 03:15; Stop 06/27/17 at 04:14; Status DC Sodium Chloride 500 ml @ 500 mls/hr 1X ONCE IV Last administered on 08:00; Start 06/27/17 at 08:00; Stop 06/27/17 at 10:39; Status DC Warfarin Sodium (Coumadin) 8 mg DAILY16 PO ; Start 06/27/17 at 16:00; Status Cancel Hydralazine HCl (Apresoline Inj) 10 mg PRN Q4HRS PRN IVP ELEVATED BP, SEE COMMENTS Last administered on 06/29/17 02:54; Start 06/27/17 at 20:00; Stop at 14:45; Status DC Albumin Human 200 ml @ 100 mls/hr Q6H IV Last administered on 06/28/17 20:35 ; Start 06/28/17 at 09:00; Stop 06/28/17 at 22:59; Status DC Hydralazine HCl (Apresoline Inj) 10 mg PRN Q4HRS PRN IVP ELEVATED BP, SEE COMMENTS Last administered on 06/30/17 18:12; Start 06/28/17 at 09:30 Enoxaparin Sodium (Lovenox 40mg Syringe) 40 mg DAILY SQ Last administered on 09:46; Start 06/29/17 at 09:00 Nitroglycerin/ Dextrose 250 ml @ 0 mls/hr CONT PRN IV SEE I/O RECORD Last administered on 06/28/17 18:17; Start 06/28/17 at 18:00 Dobutamine HCl/ Dextrose 250 ml @ 0 mls/hr CONT PRN IV SEE I/O RECORD Last administered on 06/30/17 11:42; Start 06/29/17 at 13:15 Dopamine HCl/ Dextrose 250 ml @ 16.708 mls/ hr CONT PRN IV SEE I/O RECORD Last administered on 06/30/17 21:23; Start 06/29/17 at 13:15 Furosemide 100 mg/ Sodium Chloride 100 ml @ 0 mls/hr CONT PRN IV SEE I/O RECORD Last administered on 07/01/17 05:36; Start 06/29/17 at 14:45; Stop 05/08 at 11:05; Status DC Lidocaine/Sodium Bicarbonate (Buffered Lidocaine 1%) 20 ml STK-MED ONCE IJ ; Start 06/29/17 at 15:20; Stop 06/29/17 at 15:21; Status DC Lidocaine/Sodium Bicarbonate (Buffered Lidocaine 1%) 5 ml 1X ONCE IJ ; Start 06/29/17 at 16:00; Stop 06/29/17 at 16:01; Status DC Darbepoetin [place] (Aranesp) 60 mcg [id number] SQ Last administered on 06/30/17 20 :55; Start 06/30/17 at 21:00 Oxymetazoline HCl (Afrin) 2 spray PRN Q1HR PRN NS Until bleed has stopped Last administered on 06/30/17 18:15; Start 06/30/17 at 18:00 Insulin Detemir (Levemir) 55 units QHS SQ ; Start 07/01/17 at 21:00 Insulin Detemir (Levemir) 30 units 1X ONCE SQ Last administered on 06/30/17 21:04; Start 06/30/17 at 21:00; Stop 06/30/17 at 21:01; Status DC Ondansetron HCl (Zofran) 4 mg PRN Q6HRS PRN IV NAUSEA/VOMITING Last administered on 07/01/17 08:05; Start 07/01/17 at 08:00 Sodium Chloride 1,000 ml @ 75 mls/hr 1X ONCE IV Last administered on 11:15; Start 07/01/17 at 11:15; Stop 07/02/17 at 00:34 Silver Nitrate/ Potassium Nitrate 1 each STK-MED ONCE TP ; Start 07/01/17 at 12 :06; Stop 07/01/17 at 12:07; Status DC Active Scripts Active Keflex (Cephalexin) 500 Mg Capsule 500 Mg PO QID 5 Days Reported Amlodipine Besylate 5 Mg Tablet 10 Mg PO DAILY Azathioprine 50 Mg Tablet 4 Tab PO DAILY Docusate Sodium 100 Mg Capsule 1 Cap PO TID PRN PRN Ferrous Sulfate 325 Mg Tablet 1 Tab PO BIDAC Ondansetron Hcl 4 Mg Tablet 1 Tab PO PRN Q8HRS PRN Prednisone 10 Mg Tablet 5 Mg PO DAILY Thiamine Hcl 100 Mg Tablet 100 Mg PO Nystatin-Triamcinolone Cream (Nystatin/Triamcin) 15 Gm Cream..g. 1 Ana TP BID Pantoprazole Sodium 40 Mg Tablet.dr 1 Tab PO DAILY Tacrolimus 0.5 Mg Capsule 0.5 Mg PO DAILY Tylenol (Acetaminophen) 325 Mg Tablet 1 Tab PO PRN Q6HRS PRN Haloperidol 0.5 Mg Tablet 0.25 Mg PO PRN Q8HRS PRN Metoprolol Tartrate 50 Mg Tablet 3 Tab PO BID Novolog Flexpen (Insulin Aspart) 100 Unit/1 Ml Insuln.pen 22 Unit SQ AC SUPPER Novolog Flexpen (Insulin Aspart) 100 Unit/1 Ml Insuln.pen 18 Unit SQ AC LUNCH Novolog Flexpen (Insulin Aspart) 100 Unit/1 Ml Insuln.pen 10 Unit SQ AC BREAKFAST Levothyroxine Sodium 88 Mcg Tablet 1 Tab PO DAILY Atorvastatin Calcium 10 Mg Tablet 1 Tab PO DAILY Loratadine 10 Mg Tablet 1 Tab PO DAILY Hydrochlorothiazide Tablet (Hydrochlorothiazide) 25 Mg Tablet 25 Mg PO DAILY Pepcid Ac (Famotidine) 20 Mg Tablet 20 Mg PO HS Tacrolimus 1 Mg Capsule 1 Mg PO BID Men's Multivitamin Gummies (Folic Acid/Multivit-Minerals) 200 Mcg Tab.chew 200 Mcg PO Aspirin 81 Mg Tab.chew 1 Tab PO DAILY Lantus (Insulin Glargine,Hum.rec.anlog) 100 Unit/1 Ml Vial 70 Unit SQ QHS Alendronate Sodium 70 Mg Tablet 70 Mg PO WEEKLY Vitals/I & O Vital Sign - Last 24 Hours 06/30/17 06/30/17 06/30/17 06/30/17 16:00 16:00 16:00 17:00 Temp 98.7 98.7 Pulse 100 100 Resp 25 24 B/P (MAP) 188/64 (105) 186/66 (106) Pulse Ox 98 99 O2 Delivery Nasal Cannula Room Air Nasal Cannula O2 Flow Rate 3.0 3.0 3.0 06/30/17 06/30/17 06/30/17 06/30/17 18:00 18:12 19:00 19:55 Temp 98.0 98.0 Pulse 110 105 106 Resp 24 24 B/P (MAP) 197/67 (110) 197/67 188/59 (102) Pulse Ox 94 97 O2 Delivery Nasal Cannula Nasal Cannula Room Air O2 Flow Rate 3.0 3.0 06/30/17 06/30/17 06/30/17 06/30/17 20:00 20:54 21:00 22:00 Pulse 102 110 110 102 Resp 24 24 24 B/P (MAP) 158/61 (93) 158/61 166/69 (101) 157/61 (93) Pulse Ox 97 98 99 O2 Delivery Nasal Cannula Nasal Cannula Nasal Cannula O2 Flow Rate 3.0 3.0 3.0 06/30/17 07/01/17 07/01/17 07/01/17 23:00 00:00 00:01 00:02 Temp 98.9 98.9 Pulse 106 98 Resp 24 20 B/P (MAP) 142/54 (83) 139/67 (91) Pulse Ox 99 99 O2 Delivery Nasal Cannula Room Air Room Air O2 Flow Rate 3.0 3.0 07/01/17 07/01/17 07/01/17 07/01/17 01:00 02:00 03:00 03:20 Pulse 96 104 102 Resp 24 20 B/P (MAP) 140/58 (85) 139/63 (88) 161/52 (88) Pulse Ox 99 99 99 99 O2 Delivery Room Air Room Air Room Air Room Air 07/01/17 07/01/17 07/01/17 07/01/17 03:50 04:00 04:12 05:00 Temp 99.0 99.0 Pulse 97 106 Resp 24 B/P (MAP) 108/56 (73) 124/53 (76) Pulse Ox 99 99 100 O2 Delivery Room Air Room Air Room Air Room Air O2 Flow Rate 3.0 07/01/17 07/01/17 07/01/17 07/01/17 06:00 07:00 08:00 08:00 Pulse 110 108 Resp 24 25 B/P (MAP) 138/61 (86) 126/56 (79) Pulse Ox 98 96 O2 Delivery Room Air Room Air Room Air O2 Flow Rate 3.0 07/01/17 07/01/17 07/01/17 07/01/17 08:00 09:00 09:46 10:00 Temp 98.8 98.8 Pulse 114 118 118 116 Resp 14 20 B/P (MAP) 168/70 (102) 113/66 (82) 113/66 107/44 (65) Pulse Ox 97 98 100 O2 Delivery Room Air Room Air Room Air 07/01/17 07/01/17 07/01/17 07/01/17 11:00 12:00 12:00 12:00 Pulse 100 98 Resp 22 23 B/P (MAP) 106/46 (66) 110/45 (66) Pulse Ox 100 100 O2 Delivery Room Air Room Air Room Air O2 Flow Rate 3.0 Intake and Output 06/30/17 06/30/17 07/01/17 15:00 23:00 07:00 Intake Total 203 ml 402 ml 366 ml Output Total 1275 ml 1314 ml 1205 ml Balance -1072 ml -912 ml -839 ml Nutrition Consultation Dietary Evaluation: Recommendations by RD: Increase Calorie Intake, Add supplement feedings Comments: Diabetisource AC@goal rate 75 ml/hr w/200 ml water flushes q4 hrs or flushes per MD Expected Outcomes/Goals: TF tolerated at goal rate and providing > 60% est needs - met at times, ongoing Interpretation of weight loss: >7.5% in 3 months Malnutrition Findings: Food and Nutrition Intake (Mod: <75% est energy req 7days Malnutrition related to morbid: BMI>or equal to 40 Malnutrition related to morbid: Yes Weight Status: Morbidly Obese KASSIE COKER III DO Jul 01, 2017 15:30
[2017-07-01 18:15] LABS: HCO3 ABG 29 mmol/L (21-28); PCO2 ABG 48 mmHg (35-46); PH ABG 7.41 (7.35-7.45); PO2 ABG 99 mmHg (65-108); SAT O2 ABG 97 % (92-99)
[2017-07-01 18:24] LABS: FIO2 ABG 28
[2017-07-01] MEDS: FAMOTIDINE 20 MG TABLET. PO SCH (21:19)
[2017-07-01] MEDS: INSULIN DETEMIR 300 UNITS/3 ML INSULN.PEN. SQ SCH (21:25)
--- NOTE | 2017-07-01 22:51 | PDOC2 ---
Consult: Consult: ENT/Otolaryngology Reason for Consult: epistaxis. HPI: Patient was admitted on 06-22-2017 for altered mental status. Patient remains in ICU at this time. He pulled out NGT from right nares yesterday evening with acute epistaxis. This slowed down with topical afrin. Nursing staff reports that it continues to ooze off and on overnight. Patient also has suffered hematemesis this morning. Vitals Vitals Vital Signs Date Time Temp Pulse Resp B/P (MAP) Pulse Ox O2 Delivery O2 Flow Rate FiO2 07/01/17 12:00 3.0 07/01/17 12:00 Room Air 07/01/17 12:00 98 23 110/45 (66) 100 07/01/17 08:00 98.8 98.8 General: Alert, sitting at bedside, answers questions appropriately Eyes: EOMI, PERRL Nose: Longstanding full thickness defect of left lateral nasal wall, No kamlesh anterior bleeding, Septum is slightly excoriated bilaterally. Eschar noted between mid septum and inferior turbinate on right side. OC/OP: coagulated blood in right oropharynx, soft palate normal, tonsils/ tongue are normal Neck CTA Bilaterally Laboratory Tests Test 07/01/17 05:40 07/01/17 16:49 07/01/17 21:18 White Blood Count 7.9 x10^3/uL Red Blood Count 2.48 x10^6/uL Hemoglobin 7.7 g/dL Hematocrit 24.2 % Mean Corpuscular Volume 97 fL Mean Corpuscular Hemoglobin 31 pg Mean Corpuscular Hemoglobin Concent 32 g/dL Red Cell Distribution Width 20.3 % Platelet Count 232 x10^3/uL Neutrophils (%) (Auto) 63 % Lymphocytes (%) (Auto) 19 % Monocytes (%) (Auto) 12 % Eosinophils (%) (Auto) 6 % Basophils (%) (Auto) 1 % Neutrophils # (Auto) 5.0 x10^3uL Lymphocytes # (Auto) 1.5 x10^3/uL Monocytes # (Auto) 1.0 x10^3/uL Eosinophils # (Auto) 0.5 x10^3/uL Basophils # (Auto) 0.1 x10^3/uL Sodium Level 148 mmol/L Potassium Level 3.4 mmol/L Chloride Level 108 mmol/L Carbon Dioxide Level 30 mmol/L Anion Gap 10 Blood Urea Nitrogen 48 mg/dL Creatinine 2.4 mg/dL Estimated GFR (Cockcroft-Gault) 26.6 Glucose Level 88 mg/dL Calcium Level 8.6 mg/dL O2 Saturation 97 % Arterial Blood pH 7.41 Arterial Blood pCO2 at Patient Temp 48 mmHg Arterial Blood pO2 at Patient Temp 99 mmHg Arterial Blood HCO3 29 mmol/L Arterial Blood Base Excess 4 mmol/L FiO2 28 Glucose (Fingerstick) 210 mg/dL Current Medications Medications (Trade) Dose Ordered Sig/Ivett Route PRN Reason Start Time Stop Time Status Last Admin Dose Admin Etomidate (Amidate) 20 mg STK-MED ONCE IV 06/22/17 05:47 06/22/17 05:48 DC Rocuronium [place] (Zemuron) 50 mg STK-MED ONCE .ROUTE 06/22/17 05:48 06/22/17 05:49 DC Propofol 50 ml @ As Directed STK-MED ONCE IV 06/22/17 06:15 06/22/17 06:16 DC Propofol 100 ml @ 0 mls/hr CONT PRN IV SEE I/O RECORD 06/22/17 06:30 07/01/17 20:35 DC 06/25/17 03:20 Ondansetron HCl (Zofran) 4 mg PRN Q8HRS PRN IV NAUSEA/VOMITING 06/22/17 06:45 06/23/17 06:44 DC Fentanyl Citrate (Fentanyl 2ml Vial) 50 mcg PRN Q1HR PRN IV PAIN 06/22/17 06:45 06/23/17 06:44 DC 06/22/17 07:04 Sodium Chloride 1,000 ml @ 75 mls/hr [id number] IV 06/22/17 06:45 06/22/17 19:47 DC Acetaminophen (Tylenol) 650 mg PRN Q4HRS PRN PO FEVER 06/22/17 06:45 06/23/17 06:44 DC Midazolam HCl (Versed) 2 mg STK-MED ONCE .ROUTE 06/22/17 07:17 06/22/17 07:18 DC Midazolam HCl 100 ml @ 0 mls/hr CONT PRN IV SEE I/O RECORD 06/22/17 07:30 07/01/17 20:34 DC 06/22/17 23:38 Midazolam HCl (Versed) 2 mg 1X ONCE IV 06/22/17 07:30 06/22/17 07:31 DC 06/22/17 07:30 Norepinephrine Bitartrate 250 ml @ As Directed STK-MED ONCE IV 06/22/17 08:27 06/22/17 08:28 DC Norepinephrine Bitartrate 250 ml @ 0 mls/hr CONT PRN IV SEE I/O RECORD 06/22/17 08:30 07/01/17 20:33 DC 06/22/17 13:02 Sodium Chloride 1,000 ml @ 125 mls/hr Q8H IV 06/22/17 11:00 06/23/17 14:28 DC 06/23/17 08:21 Sodium Chloride 1,000 ml @ 999 mls/hr 1X ONCE IV 06/22/17 10:45 06/22/17 11:45 DC 06/22/17 14:32 Vancomycin HCl (Vanco Per Pharmacy) 1 each PRN DAILY PRN MC SEE COMMENTS 06/22/17 11:00 06/27/17 14:42 DC 06/26/17 15:34 Piperacillin Sod/ Tazobactam Sod (Zosyn Per Pharmacy) 1 each PRN DAILY PRN MC SEE COMMENTS 06/22/17 11:00 06/26/17 08:38 DC Aspirin (Children'S Aspirin) 81 mg DAILY PO 06/22/17 12:00 07/01/17 09:46 Atorvastatin Calcium (Lipitor) 10 mg DAILY PO 06/22/17 12:00 07/01/17 09:45 Azathioprine (Imuran) 50 mg DAILY PO 06/22/17 12:00 07/01/17 09:46 Famotidine (Pepcid) 20 mg HS PO 06/22/17 21:00 07/01/17 21:19 Levothyroxine Sodium (Synthroid) 88 mcg DAILYAC PO 06/22/17 12:00 07/01/17 09:45 Prednisone (Prednisone) 20 mg DAILY PO 06/22/17 12:00 07/01/17 09:46 Insulin Detemir (Levemir) 70 units QHS SQ 06/22/17 21:00 06/22/17 21:10 DC Cetirizine HCl (ZyrTEC) 10 mg DAILY PO 06/22/17 12:00 07/01/17 09:46 Metoprolol Tartrate (Lopressor) 100 mg BID PO 06/22/17 12:00 06/22/17 18:33 DC Tacrolimus (Prograf) 1 mg BID PO 06/22/17 12:00 07/01/17 21:19 Vancomycin HCl 2 gm/Dextrose/ Sodium Chloride 500 ml @ 250 mls/hr 1X ONCE IV 06/22/17 11:30 06/22/17 13:29 DC 06/22/17 13:04 Piperacillin Sod/ Tazobactam Sod (Zosyn) 4.5 gm Q6HRS IVP 06/22/17 12:00 06/27/17 14:37 DC 06/27/17 05:51 Vancomycin HCl 2 gm/Dextrose/ Sodium Chloride 500 ml @ 250 mls/hr Q24H IV 06/23/17 13:00 06/23/17 13:00 DC Vancomycin HCl 1 each 1X ONCE MC 06/24/17 12:30 06/24/17 12:31 DC 06/24/17 12:30 Metoprolol Tartrate (Lopressor) 50 mg BID PO 06/22/17 21:00 07/01/17 21:29 Albumin Human 200 ml @ 100 mls/hr TID IV 06/22/17 21:00 06/23/17 02:42 DC 06/22/17 20:44 Insulin Detemir (Levemir) 70 units QHS SQ 06/23/17 21:00 06/25/17 10:40 DC 06/24/17 21:53 Insulin Detemir (Levemir) 30 units 1X ONCE SQ 06/22/17 21:15 06/22/17 21:16 DC 06/22/17 21:18 Albumin Human 200 ml @ 100 mls/hr TID IV 06/23/17 03:00 06/23/17 03:00 DC Albumin Human 200 ml @ 100 mls/hr Q6HRS IV 06/23/17 06:00 06/24/17 07:59 DC 06/24/17 05:47 Vancomycin HCl 2 gm/Dextrose/ Sodium Chloride 500 ml @ 250 mls/hr Q24H IV 06/23/17 13:00 06/25/17 08:36 DC 06/24/17 14:43 Magnesium Sulfate/ Dextrose 50 ml @ 25 mls/hr PRN DAILY PRN IV for Mag < 1.7 on am labs 06/23/17 14:30 06/25/17 10:43 Fentanyl Citrate (Fentanyl 2ml Vial) 25 mcg PRN Q4HRS PRN IV PAIN 06/23/17 15:45 07/01/17 03:20 Magnesium Sulfate/ Dextrose 50 ml @ 25 mls/hr 1X ONCE IV 06/24/17 06:30 06/24/17 08:29 DC 06/24/17 06:32 Potassium Phosphate 13.6 mmol/Sodium Chloride 104.5333 ml @ 52.267 m... Q2H IV 06/24/17 11:00 06/24/17 16:59 DC 06/24/17 18:07 Furosemide (Lasix) 20 mg 1X ONCE IVP 06/24/17 11:15 06/24/17 11:16 DC 06/24/17 12:59 Dextrose (Dextrose 50%-Water Syringe) 25 gm STK-MED ONCE IV 06/25/17 05:58 06/25/17 05:59 DC Dextrose (Dextrose 50%-Water Syringe) 12.5 gm PRN Q15MIN PRN IV SEE COMMENTS 06/25/17 06:15 06/27/17 09:49 Chlorhexidine Gluconate (Peridex) 15 ml BID SWSP 06/25/17 21:00 06/26/17 08:42 DC Vancomycin HCl 2 gm/Dextrose/ Sodium Chloride 500 ml @ 250 mls/hr Q48H IV 06/26/17 13:00 06/27/17 14:37 DC 06/26/17 13:17 Insulin Detemir (Levemir) 55 units QHS SQ 06/25/17 21:00 06/30/17 20:48 DC 06/29/17 20:58 Enoxaparin Sodium (Lovenox 40mg Syringe) 40 mg BID SQ 06/25/17 12:00 06/28/17 10:04 DC 06/28/17 09:33 Nystatin (Nystop) 1 ana BID TP 06/25/17 21:00 07/01/17 21:19 Isosorbide Mononitrate (Imdur) 30 mg DAILY PO 06/26/17 09:00 Amino Acids/ Glycerin/ Electrolytes 1,000 ml @ 80 mls/hr [id number] IV 06/26/17 09:15 06/26/17 10:44 DC Sodium Chloride 500 ml @ 250 mls/hr 1X ONCE IV 06/26/17 23:45 06/27/17 01:44 DC 06/26/17 23:30 Sodium Chloride 250 ml @ 250 mls/hr 1X ONCE IV 06/27/17 03:15 06/27/17 04:14 DC 06/27/17 03:00 Sodium Chloride 500 ml @ 500 mls/hr 1X ONCE IV 06/27/17 08:00 06/27/17 10:39 DC 06/27/17 08:00 Warfarin Sodium (Coumadin) 8 mg DAILY16 PO 06/27/17 16:00 Cancel Hydralazine HCl (Apresoline Inj) 10 mg PRN Q4HRS PRN IVP ELEVATED BP, SEE COMMENTS 06/27/17 20:00 06/29/17 14:45 DC 06/29/17 02:54 Albumin Human 200 ml @ 100 mls/hr Q6H IV 06/28/17 09:00 06/28/17 22:59 DC 06/28/17 20:35 Hydralazine HCl (Apresoline Inj) 10 mg PRN Q4HRS PRN IVP ELEVATED BP, SEE COMMENTS 06/28/17 09:30 06/30/17 18:12 Enoxaparin Sodium (Lovenox 40mg Syringe) 40 mg DAILY SQ 06/29/17 09:00 07/01/17 09:46 Nitroglycerin/ Dextrose 250 ml @ 0 mls/hr CONT PRN IV SEE I/O RECORD 06/28/17 18:00 06/28/17 18:17 Dobutamine HCl/ Dextrose 250 ml @ 0 mls/hr CONT PRN IV SEE I/O RECORD 06/29/17 13:15 06/30/17 11:42 Dopamine HCl/ Dextrose 250 ml @ 16.708 mls/ hr CONT PRN IV SEE I/O RECORD 06/29/17 13:15 06/30/17 21:23 Furosemide 100 mg/ Sodium Chloride 100 ml @ 0 mls/hr CONT PRN IV SEE I/O RECORD 06/29/17 14:45 07/01/17 11:05 DC 07/01/17 05:36 Lidocaine/Sodium Bicarbonate (Buffered Lidocaine 1%) 20 ml STK-MED ONCE IJ 12/8/17 15:20 06/29/17 15:21 DC Lidocaine/Sodium Bicarbonate (Buffered Lidocaine 1%) 5 ml 1X ONCE IJ 06/29/17 16:00 06/29/17 16:01 DC Darbepoetin [place] (Aranesp) 60 mcg [id number] SQ 06/30/17 21:00 06/30/17 20:55 Oxymetazoline HCl (Afrin) 2 spray PRN Q1HR PRN NS Until bleed has stopped 06/30/17 18:00 06/30/17 18:15 Insulin Detemir (Levemir) 55 units QHS SQ 07/01/17 21:00 07/01/17 21:25 Insulin Detemir (Levemir) 30 units 1X ONCE SQ 06/30/17 21:00 06/30/17 21:01 DC 06/30/17 21:04 Ondansetron HCl (Zofran) 4 mg PRN Q6HRS PRN IV NAUSEA/VOMITING 07/01/17 08:00 07/01/17 08:05 Sodium Chloride 1,000 ml @ 75 mls/hr 1X ONCE IV 07/01/17 11:15 07/02/17 00:34 07/01/17 11:15 Silver Nitrate/ Potassium Nitrate 1 each STK-MED ONCE TP 07/01/17 12:06 07/01/17 12:07 DC Amino Acids/ Glycerin/ Electrolytes 1,000 ml @ 75 mls/hr [id number] IV 07/02/17 09:00 Procedure Note Procedure: Cauterization of right anterior septum. Description: Nose treated with topical Afrin. Silver nitrate then applied to right anterior septum and eschar tissue. No kamlesh recurrence of bleeding noted. 72 year old male with kamlesh epistaxis since traumatic removal of NGT yesterday. Treated with right anterior septum cauterization today 1. Recommend continued use of Afrin spray 1-2 sprays in nostril every hour prn bleeding. 2. Recommend saline nasal spray 3-4 times daily. 3. Recommend mupirocin ointment to inside of nose twice daily with q-tip. 4. If NG tube needs to replaced, i would avoid using right nares as significant eschar present posteriorly obstructing path. 5. I discussed with nursing staff to call me should bleeding worsen. JEANNINE MOISE MD Jul 01, 2017 22:51
[2017-07-02] VITALS (13 sets, daily range): BP systolic 117–195; BP diastolic 58–86
[2017-07-02 04:02] LABS: BASO % 1 % (0-3); EOS % 1 % (0-3); HEMATOCRIT 21.4 % (39.0-53.0); LYMPH # 0.8 x10^3/uL (1.0-4.8); LYMPH % 12 % (24-48); MEAN CORPUSCULAR HEMOGLOBIN 32 pg (25-35); MEAN CORPUSCULAR HGB CONC 32 g/dL (31-37); MEAN CORPUSCULAR VOLUME 98 fL (79-100); MONO % 9 % (0-9); NEUT % 77 % (31-73); PLATELET COUNT 240 x10^3/uL (140-400); RED BLOOD COUNT 2.19 x10^6/uL (4.30-5.70); RED CELL DISTRIBUTION WIDTH 20.1 % (11.5-14.5); WHITE BLOOD COUNT 6.7 x10^3/uL (4.0-11.0)
[2017-07-02 04:08] LABS: HEMOGLOBIN 6.9 g/dL (13.0-17.5)
[2017-07-02 04:23] LABS: CALCIUM 8.1 mg/dL (8.5-10.1); CREATININE 2.3 mg/dL (0.7-1.3); GFR 27.9; MAGNESIUM 1.5 mg/dL (1.8-2.4); POTASSIUM 3.5 mmol/L (3.5-5.1)
--- NOTE | 2017-07-02 07:57 | RAD ---
Portable chest, 07/02/2017: History: Effusion Comparison is made to yesterday's study. A right jugular central venous catheter extends into the right innominate vein region. The heart is enlarged. The pulmonary vascularity is at the upper limits of normal. There is a moderate ongoing left basilar opacity compatible with pleural fluid and underlying atelectasis/infiltrate. This is unchanged. No significant right lung infiltrate is seen. No new abnormality is seen. IMPRESSION: No significant change since yesterday's study.
[2017-07-02] MEDS: ASPIRIN CHEWABLE 81 MG TABLET. PO SCH (08:24)
[2017-07-02] MEDS: CETIRIZINE HCL 10 MG TABLET. PO SCH (08:24)
[2017-07-02] MEDS: LEVOTHYROXINE 88 MCG TABLET PO SCH (08:24)
[2017-07-02] MEDS: azaTHIOprine 50 MG TABLET PO SCH (08:25)
[2017-07-02] MEDS: TACROLIMUS 1 MG CAPSULE PO SCH ×2 (08:25→20:30)
[2017-07-02] MEDS: METOPROLOL TART IMMED RELEASE 50 MG TABLET. PO SCH ×2 (08:27→20:31)
[2017-07-02] MEDS: predniSONE 20 MG TABLET PO SCH (08:27)
[2017-07-02] MEDS: ISOSORBIDE MONONITRATE ER 30 MG TAB.ER.24H PO SCH (08:28)
[2017-07-02] MEDS: ENOXAPARIN 40 MG/0.4 ML SYRINGE. SQ SCH ×2 (08:32→09:00)
[2017-07-02] MEDS: ATORVASTATIN CALCIUM 10 MG TABLET. PO SCH (08:50)
[2017-07-02] MEDS: NYSTATIN TOPICAL POWDER 15GM BOTTLE. TP SCH ×2 (08:51→20:31)
[2017-07-02] MEDS: DEXTROSE 50% 25 GM / 50ML DISP.SYRIN. IV PRN (08:55)
[2017-07-02] MEDS: AMINO AC 3%/ELECTROLYTE/GLYCER 1,000 ML IV SCH ×2 (09:00→23:40)
--- NOTE | 2017-07-02 11:03 | PDOC ---
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 METS LE LYMPHEDEMA S/P LEFT BKA EARLIER THIS YEAR SEVERE DECONDITIONING CHRONIC IMMUNOSUPPRESSION MILD HYPOKALEMIA-WILL STOP LASIX History of Present Illness History of Present Illness Pt seen and examined Weak and is at the bedside DW RN I ordered a unit of PRBCs as HgB is down to 6.7 DW case mgmt. Asked for LTAC eval Vitals Vitals Vital Signs Date Time Temp Pulse Resp B/P (MAP) Pulse Ox O2 Delivery O2 Flow Rate FiO2 07/02/17 10:41 98.1 93 22 154/61 98.1 07/02/17 07:00 99 Nasal Cannula 2.0 Physical Exam Physical Exam General: Alert, Oriented X3, Other (Asleep) Heart: Other (AFIB rate controlled; distant heart sounds) Lungs: Clear, Crackles Abdomen: Soft, Other (obese) Extremities: No clubbing, No cyanosis Skin: No rashes, Other (chronic venous stasis changes) Labs LABS Laboratory Tests Test 07/01/17 16:49 07/01/17 21:18 07/02/17 03:40 07/02/17 08:51 O2 Saturation 97 % (92-99) Arterial Blood pH 7.41 (7.35-7.45) Arterial Blood pCO2 at Patient Temp 48 mmHg (35-46) Arterial Blood pO2 at Patient Temp 99 mmHg (65-108) Arterial Blood HCO3 29 mmol/L (21-28) Arterial Blood Base Excess 4 mmol/L (-3-3) FiO2 28 Glucose (Fingerstick) 210 mg/dL (70-99) 43 mg/dL (70-99) White Blood Count 6.7 x10^3/uL (4.0-11.0) Red Blood Count 2.19 x10^6/uL (4.30-5.70) Hemoglobin 6.9 g/dL (13.0-17.5) Hematocrit 21.4 % (39.0-53.0) Mean Corpuscular Volume 98 fL (79-100) Mean Corpuscular Hemoglobin 32 pg (25-35) Mean Corpuscular Hemoglobin Concent 32 g/dL (31-37) Red Cell Distribution Width 20.1 % (11.5-14.5) Platelet Count 240 x10^3/uL (140-400) Neutrophils (%) (Auto) 77 % (31-73) Lymphocytes (%) (Auto) 12 % (24-48) Monocytes (%) (Auto) 9 % (0-9) Eosinophils (%) (Auto) 1 % (0-3) Basophils (%) (Auto) 1 % (0-3) Neutrophils # (Auto) 5.1 x10^3uL (1.8-7.7) Lymphocytes # (Auto) 0.8 x10^3/uL (1.0-4.8) Monocytes # (Auto) 0.6 x10^3/uL (0.0-1.1) Eosinophils # (Auto) 0.1 x10^3/uL (0.0-0.7) Basophils # (Auto) 0.0 x10^3/uL (0.0-0.2) Sodium Level 149 mmol/L (136-145) Potassium Level 3.5 mmol/L (3.5-5.1) Chloride Level 110 mmol/L (98-107) Carbon Dioxide Level 31 mmol/L (21-32) Anion Gap 8 (6-14) Blood Urea Nitrogen 55 mg/dL (8-26) Creatinine 2.3 mg/dL (0.7-1.3) Estimated GFR (Cockcroft-Gault) 27.9 Glucose Level 90 mg/dL (70-99) Calcium Level 8.1 mg/dL (8.5-10.1) Magnesium Level 1.5 mg/dL (1.8-2.4) Review of Systems Review of Systems co weakness co dysphagia Assessment and Plan Assessmemt and Plan Problems Medical Problems: (1) Acute encephalopathy Status: Acute (2) Pulmonary edema Status: Acute (3) Respiratory acidosis Status: Acute Acute hypercarbic, hypoxic respiratory failure REJI-ATN-CR OF 2.4 TODAY CKD - CHRONIC ALLOGRAFT NEPHROPATHY WITH CR OF 1.9-2.4 AT BASELINE HX OR RENAL TRANSPLANT 15 YEARS AGO-LIVING RELATED(SON) PLEURAL EFFUSION-S/P RIGHT THORACOSTOMY TUBE DIASTOLIC CHF-IMPROVING ACUTE ON CHRONIC RESP FAILURE-S/P EXTUBATION ANEMIA OF CHRONIC DISEASE CHRONIC AFIB BEVERLY/PULM HTN RENAL MASS WITH ? METS LE LYMPHEDEMA S/P LEFT BKA EARLIER THIS YEAR SEVERE DECONDITIONING CHRONIC IMMUNOSUPPRESSION MILD HYPOKALEMIA-WILL STOP LASIX Plan Transfuse LTAC eval Cont dobutamine and dopamine qtt [facility] to try to get him a prosthesis Recheck labs Home meds ST eval Prognosis guarded Problems: Comment Review of Relevant I have reviewed the following items buzz (where applicable) has been applied. Labs Laboratory Tests Test 06/30/17 20:38 07/01/17 05:40 07/01/17 16:49 07/01/17 21:18 Glucose (Fingerstick) 87 mg/dL (70-99) 210 mg/dL (70-99) White Blood Count 7.9 x10^3/uL (4.0-11.0) Red Blood Count 2.48 x10^6/uL (4.30-5.70) Hemoglobin 7.7 g/dL (13.0-17.5) Hematocrit 24.2 % (39.0-53.0) Mean Corpuscular Volume 97 fL (79-100) Mean Corpuscular Hemoglobin 31 pg (25-35) Mean Corpuscular Hemoglobin Concent 32 g/dL (31-37) Red Cell Distribution Width 20.3 % (11.5-14.5) Platelet Count 232 x10^3/uL (140-400) Neutrophils (%) (Auto) 63 % (31-73) Lymphocytes (%) (Auto) 19 % (24-48) Monocytes (%) (Auto) 12 % (0-9) Eosinophils (%) (Auto) 6 % (0-3) Basophils (%) (Auto) 1 % (0-3) Neutrophils # (Auto) 5.0 x10^3uL (1.8-7.7) Lymphocytes # (Auto) 1.5 x10^3/uL (1.0-4.8) Monocytes # (Auto) 1.0 x10^3/uL (0.0-1.1) Eosinophils # (Auto) 0.5 x10^3/uL (0.0-0.7) Basophils # (Auto) 0.1 x10^3/uL (0.0-0.2) Sodium Level 148 mmol/L (136-145) Potassium Level 3.4 mmol/L (3.5-5.1) Chloride Level 108 mmol/L (98-107) Carbon Dioxide Level 30 mmol/L (21-32) Anion Gap 10 (6-14) Blood Urea Nitrogen 48 mg/dL (8-26) Creatinine 2.4 mg/dL (0.7-1.3) Estimated GFR (Cockcroft-Gault) 26.6 Glucose Level 88 mg/dL (70-99) Calcium Level 8.6 mg/dL (8.5-10.1) O2 Saturation 97 % (92-99) Arterial Blood pH 7.41 (7.35-7.45) Arterial Blood pCO2 at Patient Temp 48 mmHg (35-46) Arterial Blood pO2 at Patient Temp 99 mmHg (65-108) Arterial Blood HCO3 29 mmol/L (21-28) Arterial Blood Base Excess 4 mmol/L (-3-3) FiO2 28 Test 07/02/17 03:40 07/02/17 08:51 White Blood Count 6.7 x10^3/uL (4.0-11.0) Red Blood Count 2.19 x10^6/uL (4.30-5.70) Hemoglobin 6.9 g/dL (13.0-17.5) Hematocrit 21.4 % (39.0-53.0) Mean Corpuscular Volume 98 fL (79-100) Mean Corpuscular Hemoglobin 32 pg (25-35) Mean Corpuscular Hemoglobin Concent 32 g/dL (31-37) Red Cell Distribution Width 20.1 % (11.5-14.5) Platelet Count 240 x10^3/uL (140-400) Neutrophils (%) (Auto) 77 % (31-73) Lymphocytes (%) (Auto) 12 % (24-48) Monocytes (%) (Auto) 9 % (0-9) Eosinophils (%) (Auto) 1 % (0-3) Basophils (%) (Auto) 1 % (0-3) Neutrophils # (Auto) 5.1 x10^3uL (1.8-7.7) Lymphocytes # (Auto) 0.8 x10^3/uL (1.0-4.8) Monocytes # (Auto) 0.6 x10^3/uL (0.0-1.1) Eosinophils # (Auto) 0.1 x10^3/uL (0.0-0.7) Basophils # (Auto) 0.0 x10^3/uL (0.0-0.2) Sodium Level 149 mmol/L (136-145) Potassium Level 3.5 mmol/L (3.5-5.1) Chloride Level 110 mmol/L (98-107) Carbon Dioxide Level 31 mmol/L (21-32) Anion Gap 8 (6-14) Blood Urea Nitrogen 55 mg/dL (8-26) Creatinine 2.3 mg/dL (0.7-1.3) Estimated GFR (Cockcroft-Gault) 27.9 Glucose Level 90 mg/dL (70-99) Calcium Level 8.1 mg/dL (8.5-10.1) Magnesium Level 1.5 mg/dL (1.8-2.4) Glucose (Fingerstick) 43 mg/dL (70-99) Laboratory Tests Test 07/01/17 16:49 07/01/17 21:18 07/02/17 03:40 07/02/17 08:51 O2 Saturation 97 % (92-99) Arterial Blood pH 7.41 (7.35-7.45) Arterial Blood pCO2 at Patient Temp 48 mmHg (35-46) Arterial Blood pO2 at Patient Temp 99 mmHg (65-108) Arterial Blood HCO3 29 mmol/L (21-28) Arterial Blood Base Excess 4 mmol/L (-3-3) FiO2 28 Glucose (Fingerstick) 210 mg/dL (70-99) 43 mg/dL (70-99) White Blood Count 6.7 x10^3/uL (4.0-11.0) Red Blood Count 2.19 x10^6/uL (4.30-5.70) Hemoglobin 6.9 g/dL (13.0-17.5) Hematocrit 21.4 % (39.0-53.0) Mean Corpuscular Volume 98 fL (79-100) Mean Corpuscular Hemoglobin 32 pg (25-35) Mean Corpuscular Hemoglobin Concent 32 g/dL (31-37) Red Cell Distribution Width 20.1 % (11.5-14.5) Platelet Count 240 x10^3/uL (140-400) Neutrophils (%) (Auto) 77 % (31-73) Lymphocytes (%) (Auto) 12 % (24-48) Monocytes (%) (Auto) 9 % (0-9) Eosinophils (%) (Auto) 1 % (0-3) Basophils (%) (Auto) 1 % (0-3) Neutrophils # (Auto) 5.1 x10^3uL (1.8-7.7) Lymphocytes # (Auto) 0.8 x10^3/uL (1.0-4.8) Monocytes # (Auto) 0.6 x10^3/uL (0.0-1.1) Eosinophils # (Auto) 0.1 x10^3/uL (0.0-0.7) Basophils # (Auto) 0.0 x10^3/uL (0.0-0.2) Sodium Level 149 mmol/L (136-145) Potassium Level 3.5 mmol/L (3.5-5.1) Chloride Level 110 mmol/L (98-107) Carbon Dioxide Level 31 mmol/L (21-32) Anion Gap 8 (6-14) Blood Urea Nitrogen 55 mg/dL (8-26) Creatinine 2.3 mg/dL (0.7-1.3) Estimated GFR (Cockcroft-Gault) 27.9 Glucose Level 90 mg/dL (70-99) Calcium Level 8.1 mg/dL (8.5-10.1) Magnesium Level 1.5 mg/dL (1.8-2.4) Microbiology 06/29/17 Gram Stain - Final, Complete Medications Current Medications Etomidate (Amidate) 20 mg STK-MED ONCE IV ; Start 06/22/17 at 05:47; Stop at 05:48; Status DC Rocuronium Elkins (Zemuron) 50 mg STK-MED ONCE .ROUTE ; Start 06/22/17 at 05:48 ; Stop 06/22/17 at 05:49; Status DC Propofol 50 ml @ As Directed STK-MED ONCE IV ; Start 06/22/17 at 06:15; Stop at 06:16; Status DC Propofol 100 ml @ 0 mls/hr CONT PRN IV SEE I/O RECORD Last administered on 06/25 03:20; Start 06/22/17 at 06:30; Stop 07/01/17 at 20:35; Status DC Ondansetron HCl (Zofran) 4 mg PRN Q8HRS PRN IV NAUSEA/VOMITING; Start 06/22/17 at 06:45; Stop 06/23/17 at 06:44; Status DC Fentanyl Citrate (Fentanyl 2ml Vial) 50 mcg PRN Q1HR PRN IV PAIN Last administered on 06/22/17 07:04; Start 06/22/17 at 06:45; Stop 06/23/17 at 06:44 ; Status DC Sodium Chloride 1,000 ml @ 75 mls/hr [id number] IV ; Start 06/22/17 at 06:45; Stop 06/22/17 at 19:47; Status DC Acetaminophen (Tylenol) 650 mg PRN Q4HRS PRN PO FEVER; Start 06/22/17 at 06:45 ; Stop 06/23/17 at 06:44; Status DC Midazolam HCl (Versed) 2 mg STK-MED ONCE .ROUTE ; Start 06/22/17 at 07:17; Stop 06/22/17 at 07:18; Status DC Midazolam HCl 100 ml @ 0 mls/hr CONT PRN IV SEE I/O RECORD Last administered on 06/22/17 23:38; Start 06/22/17 at 07:30; Stop 07/01/17 at 20:34; Status DC Midazolam HCl (Versed) 2 mg 1X ONCE IV Last administered on 06/22/17 07:30; Start 06/22/17 at 07:30; Stop 06/22/17 at 07:31; Status DC Norepinephrine Bitartrate 250 ml @ As Directed STK-MED ONCE IV ; Start at 08:27; Stop 06/22/17 at 08:28; Status DC Norepinephrine Bitartrate 250 ml @ 0 mls/hr CONT PRN IV SEE I/O RECORD Last administered on 06/22/17 13:02; Start 06/22/17 at 08:30; Stop 07/01/17 at 20: 33; Status DC Sodium Chloride 1,000 ml @ 125 mls/hr Q8H IV Last administered on 06/23/17 08 :21; Start 06/22/17 at 11:00; Stop 06/23/17 at 14:28; Status DC Sodium Chloride 1,000 ml @ 999 mls/hr 1X ONCE IV Last administered on 14:32; Start 06/22/17 at 10:45; Stop 06/22/17 at 11:45; Status DC Vancomycin HCl (Vanco Per Pharmacy) 1 each PRN DAILY PRN MC SEE COMMENTS Last administered on 06/26/17 15:34; Start 06/22/17 at 11:00; Stop 06/27/17 at 14:42 ; Status DC Piperacillin Sod/ Tazobactam Sod (Zosyn Per Pharmacy) 1 each PRN DAILY PRN MC SEE COMMENTS; Start 06/22/17 at 11:00; Stop 06/26/17 at 08:38; Status DC Aspirin (Children'S Aspirin) 81 mg DAILY PO Last administered on 07/02/17 08: 24; Start 06/22/17 at 12:00 Atorvastatin Calcium (Lipitor) 10 mg DAILY PO Last administered on 07/02/17 08:50; Start 06/22/17 at 12:00 Azathioprine (Imuran) 50 mg DAILY PO Last administered on 07/02/17 08:25; Start 06/22/17 at 12:00 Famotidine (Pepcid) 20 mg HS PO Last administered on 07/01/17 21:19; Start 06/22/17 at 21:00 Levothyroxine Sodium (Synthroid) 88 mcg DAILYAC PO Last administered on 08:24; Start 06/22/17 at 12:00 Prednisone (Prednisone) 20 mg DAILY PO Last administered on 07/02/17 08:27; Start 06/22/17 at 12:00 Insulin Detemir (Levemir) 70 units QHS SQ ; Start 06/22/17 at 21:00; Stop at 21:10; Status DC Cetirizine HCl (ZyrTEC) 10 mg DAILY PO Last administered on 07/02/17 08:24; Start 06/22/17 at 12:00 Metoprolol Tartrate (Lopressor) 100 mg BID PO ; Start 06/22/17 at 12:00; Stop 06/22/17 at 18:33; Status DC Tacrolimus (Prograf) 1 mg BID PO Last administered on 07/02/17 08:25; Start 06/22/17 at 12:00 Vancomycin HCl 2 gm/Dextrose/ Sodium Chloride 500 ml @ 250 mls/hr 1X ONCE IV Last administered on 06/22/17 13:04; Start 06/22/17 at 11:30; Stop 06/22/17 at 13:29; Status DC Piperacillin Sod/ Tazobactam Sod (Zosyn) 4.5 gm Q6HRS IVP Last administered on 06/27/17 05:51; Start 06/22/17 at 12:00; Stop 06/27/17 at 14:37; Status DC Vancomycin HCl 2 gm/Dextrose/ Sodium Chloride 500 ml @ 250 mls/hr Q24H IV ; Start 06/23/17 at 13:00; Stop 06/23/17 at 13:00; Status DC Vancomycin HCl 1 each 1X ONCE MC Last administered on 06/24/17 12:30; Start 06/24/17 at 12:30; Stop 06/24/17 at 12:31; Status DC Metoprolol Tartrate (Lopressor) 50 mg BID PO Last administered on 07/02/17 08 :27; Start 06/22/17 at 21:00 Albumin Human 200 ml @ 100 mls/hr TID IV Last administered on 06/22/17 20:44 ; Start 06/22/17 at 21:00; Stop 06/23/17 at 02:42; Status DC Insulin Detemir (Levemir) 70 units QHS SQ Last administered on 06/24/17 21:53 ; Start 06/23/17 at 21:00; Stop 06/25/17 at 10:40; Status DC Insulin Detemir (Levemir) 30 units 1X ONCE SQ Last administered on 06/22/17 21:18; Start 06/22/17 at 21:15; Stop 06/22/17 at 21:16; Status DC Albumin Human 200 ml @ 100 mls/hr TID IV ; Start 06/23/17 at 03:00; Stop at 03:00; Status DC Albumin Human 200 ml @ 100 mls/hr Q6HRS IV Last administered on 06/24/17 05: 47; Start 06/23/17 at 06:00; Stop 06/24/17 at 07:59; Status DC Vancomycin HCl 2 gm/Dextrose/ Sodium Chloride 500 ml @ 250 mls/hr Q24H IV Last administered on 06/24/17 14:43; Start 06/23/17 at 13:00; Stop 06/25/17 at 08:36; Status DC Magnesium Sulfate/ Dextrose 50 ml @ 25 mls/hr PRN DAILY PRN IV for Mag < 1.7 on am labs Last administered on 06/25/17 10:43; Start 06/23/17 at 14:30 Fentanyl Citrate (Fentanyl 2ml Vial) 25 mcg PRN Q4HRS PRN IV PAIN Last administered on 07/01/17 03:20; Start 06/23/17 at 15:45 Magnesium Sulfate/ Dextrose 50 ml @ 25 mls/hr 1X ONCE IV Last administered on 06/24/17 06:32; Start 06/24/17 at 06:30; Stop 06/24/17 at 08:29; Status DC Potassium Phosphate 13.6 mmol/Sodium Chloride 104.5333 ml @ 52.267 m... Q2H IV Last administered on 06/24/17 18:07; Start 06/24/17 at 11:00; Stop 06/24/17 at 16:59; Status DC Furosemide (Lasix) 20 mg 1X ONCE IVP Last administered on 06/24/17 12:59; Start 06/24/17 at 11:15; Stop 06/24/17 at 11:16; Status DC Dextrose (Dextrose 50%-Water Syringe) 25 gm STK-MED ONCE IV ; Start 06/25/17 at 05:58; Stop 06/25/17 at 05:59; Status DC Dextrose (Dextrose 50%-Water Syringe) 12.5 gm PRN Q15MIN PRN IV SEE COMMENTS Last administered on 07/02/17 08:55; Start 06/25/17 at 06:15 Chlorhexidine Gluconate (Peridex) 15 ml BID SWSP ; Start 06/25/17 at 21:00; Stop 06/26/17 at 08:42; Status DC Vancomycin HCl 2 gm/Dextrose/ Sodium Chloride 500 ml @ 250 mls/hr Q48H IV Last administered on 06/26/17 13:17; Start 06/26/17 at 13:00; Stop 06/27/17 at 14:37; Status DC Insulin Detemir (Levemir) 55 units QHS SQ Last administered on 06/29/17 20:58 ; Start 06/25/17 at 21:00; Stop 06/30/17 at 20:48; Status DC Enoxaparin Sodium (Lovenox 40mg Syringe) 40 mg BID SQ Last administered on 06/28 09:33; Start 06/25/17 at 12:00; Stop 06/28/17 at 10:04; Status DC Nystatin (Nystop) 1 alexis BID TP Last administered on 07/02/17 08:51; Start at 21:00 Isosorbide Mononitrate (Imdur) 30 mg DAILY PO Last administered on 07/02/17 08:28; Start 06/26/17 at 09:00 Amino Acids/ Glycerin/ Electrolytes 1,000 ml @ 80 mls/hr [id number] IV ; Start at 09:15; Stop 06/26/17 at 10:44; Status DC Sodium Chloride 500 ml @ 250 mls/hr 1X ONCE IV Last administered on 23:30; Start 06/26/17 at 23:45; Stop 06/27/17 at 01:44; Status DC Sodium Chloride 250 ml @ 250 mls/hr 1X ONCE IV Last administered on 03:00; Start 06/27/17 at 03:15; Stop 06/27/17 at 04:14; Status DC Sodium Chloride 500 ml @ 500 mls/hr 1X ONCE IV Last administered on 08:00; Start 06/27/17 at 08:00; Stop 06/27/17 at 10:39; Status DC Warfarin Sodium (Coumadin) 8 mg DAILY16 PO ; Start 06/27/17 at 16:00; Status Cancel Hydralazine HCl (Apresoline Inj) 10 mg PRN Q4HRS PRN IVP ELEVATED BP, SEE COMMENTS Last administered on 06/29/17 02:54; Start 06/27/17 at 20:00; Stop at 14:45; Status DC Albumin Human 200 ml @ 100 mls/hr Q6H IV Last administered on 06/28/17 20:35 ; Start 06/28/17 at 09:00; Stop 06/28/17 at 22:59; Status DC Hydralazine HCl (Apresoline Inj) 10 mg PRN Q4HRS PRN IVP ELEVATED BP, SEE COMMENTS Last administered on 06/30/17 18:12; Start 06/28/17 at 09:30 Enoxaparin Sodium (Lovenox 40mg Syringe) 40 mg DAILY SQ Last administered on 09:46; Start 06/29/17 at 09:00 Nitroglycerin/ Dextrose 250 ml @ 0 mls/hr CONT PRN IV SEE I/O RECORD Last administered on 06/28/17 18:17; Start 06/28/17 at 18:00 Dobutamine HCl/ Dextrose 250 ml @ 0 mls/hr CONT PRN IV SEE I/O RECORD Last administered on 07/02/17 03:23; Start 06/29/17 at 13:15 Dopamine HCl/ Dextrose 250 ml @ 16.708 mls/ hr CONT PRN IV SEE I/O RECORD Last administered on 07/02/17 03:24; Start 06/29/17 at 13:15 Furosemide 100 mg/ Sodium Chloride 100 ml @ 0 mls/hr CONT PRN IV SEE I/O RECORD Last administered on 07/01/17 05:36; Start 06/29/17 at 14:45; Stop 05/08 at 11:05; Status DC Lidocaine/Sodium Bicarbonate (Buffered Lidocaine 1%) 20 ml STK-MED ONCE IJ ; Start 06/29/17 at 15:20; Stop 06/29/17 at 15:21; Status DC Lidocaine/Sodium Bicarbonate (Buffered Lidocaine 1%) 5 ml 1X ONCE IJ ; Start 06/29/17 at 16:00; Stop 06/29/17 at 16:01; Status DC Darbepoetin Huber (Aranesp) 60 mcg [id number] SQ Last administered on 06/30/17 20 :55; Start 06/30/17 at 21:00 Oxymetazoline HCl (Afrin) 2 spray PRN Q1HR PRN NS Until bleed has stopped Last administered on 06/30/17 18:15; Start 06/30/17 at 18:00 Insulin Detemir (Levemir) 55 units QHS SQ Last administered on 07/01/17 21:25 ; Start 07/01/17 at 21:00 Insulin Detemir (Levemir) 30 units 1X ONCE SQ Last administered on 06/30/17 21:04; Start 06/30/17 at 21:00; Stop 06/30/17 at 21:01; Status DC Ondansetron HCl (Zofran) 4 mg PRN Q6HRS PRN IV NAUSEA/VOMITING Last administered on 07/01/17 08:05; Start 07/01/17 at 08:00 Sodium Chloride 1,000 ml @ 75 mls/hr 1X ONCE IV Last administered on 11:15; Start 07/01/17 at 11:15; Stop 07/02/17 at 00:34; Status DC Silver Nitrate/ Potassium Nitrate 1 each STK-MED ONCE TP ; Start 07/01/17 at 12 :06; Stop 07/01/17 at 12:07; Status DC Amino Acids/ Glycerin/ Electrolytes 1,000 ml @ 75 mls/hr [id number] IV Last administered on 07/02/17 09:00; Start 07/02/17 at 09:00 Active Scripts Active Keflex (Cephalexin) 500 Mg Capsule 500 Mg PO QID 5 Days Reported Amlodipine Besylate 5 Mg Tablet 10 Mg PO DAILY Azathioprine 50 Mg Tablet 4 Tab PO DAILY Docusate Sodium 100 Mg Capsule 1 Cap PO TID PRN PRN Ferrous Sulfate 325 Mg Tablet 1 Tab PO BIDAC Ondansetron Hcl 4 Mg Tablet 1 Tab PO PRN Q8HRS PRN Prednisone 10 Mg Tablet 5 Mg PO DAILY Thiamine Hcl 100 Mg Tablet 100 Mg PO Nystatin-Triamcinolone Cream (Nystatin/Triamcin) 15 Gm Cream..g. 1 Alexis TP BID Pantoprazole Sodium 40 Mg Tablet.dr 1 Tab PO DAILY Tacrolimus 0.5 Mg Capsule 0.5 Mg PO DAILY Tylenol (Acetaminophen) 325 Mg Tablet 1 Tab PO PRN Q6HRS PRN Haloperidol 0.5 Mg Tablet 0.25 Mg PO PRN Q8HRS PRN Metoprolol Tartrate 50 Mg Tablet 3 Tab PO BID Novolog Flexpen (Insulin Aspart) 100 Unit/1 Ml Insuln.pen 22 Unit SQ AC SUPPER Novolog Flexpen (Insulin Aspart) 100 Unit/1 Ml Insuln.pen 18 Unit SQ AC LUNCH Novolog Flexpen (Insulin Aspart) 100 Unit/1 Ml Insuln.pen 10 Unit SQ AC BREAKFAST Levothyroxine Sodium 88 Mcg Tablet 1 Tab PO DAILY Atorvastatin Calcium 10 Mg Tablet 1 Tab PO DAILY Loratadine 10 Mg Tablet 1 Tab PO DAILY Hydrochlorothiazide Tablet (Hydrochlorothiazide) 25 Mg Tablet 25 Mg PO DAILY Pepcid Ac (Famotidine) 20 Mg Tablet 20 Mg PO HS Tacrolimus 1 Mg Capsule 1 Mg PO BID Men's Multivitamin Gummies (Folic Acid/Multivit-Minerals) 200 Mcg Tab.chew 200 Mcg PO Aspirin 81 Mg Tab.chew 1 Tab PO DAILY Lantus (Insulin Glargine,Hum.rec.anlog) 100 Unit/1 Ml Vial 70 Unit SQ QHS Alendronate Sodium 70 Mg Tablet 70 Mg PO WEEKLY Vitals/I & O Vital Sign - Last 24 Hours 07/01/17 07/01/17 07/01/17 07/01/17 11:00 12:00 12:00 12:00 Pulse 100 98 Resp 22 23 B/P (MAP) 106/46 (66) 110/45 (66) Pulse Ox 100 100 O2 Delivery Room Air Room Air Room Air O2 Flow Rate 3.0 07/01/17 07/01/17 07/01/17 07/01/17 16:00 16:00 20:30 20:30 Temp 98.2 98.6 98.2 98.6 Pulse 92 92 Resp 19 20 B/P (MAP) 125/45 (71) 131/62 (85) Pulse Ox 95 98 O2 Delivery Room Air Room Air Room Air O2 Flow Rate 3.0 07/01/17 07/01/17 07/01/17 07/01/17 21:29 21:30 22:49 23:54 Temp 98.1 98.1 Pulse 107 103 89 93 Resp 20 20 B/P (MAP) 125/58 129/58 (81) 127/60 (82) 137/61 (86) Pulse Ox 100 100 100 O2 Delivery Room Air Room Air Nasal Cannula O2 Flow Rate 2.0 07/02/17 07/02/17 07/02/17 07/02/17 01:00 02:00 03:53 07:00 Temp 98.1 98.1 98.1 98.1 Pulse 87 86 83 96 Resp 20 20 B/P (MAP) 142/63 (89) 117/58 (77) 133/61 (85) 154/61 (92) Pulse Ox 100 99 O2 Delivery Nasal Cannula Nasal Cannula O2 Flow Rate 2.0 2.0 07/02/17 07/02/17 07/02/17 08:27 08:28 10:41 Temp 98.1 98.1 Pulse 83 83 93 Resp 22 B/P (MAP) 133/61 133/61 154/61 Intake and Output 07/01/17 07/01/17 07/02/17 15:00 23:00 07:00 Intake Total 847 ml 50 ml Output Total 705 ml 220 ml 680 ml Balance -705 ml 627 ml -630 ml Nutrition Consultation Dietary Evaluation: Recommendations by RD: Increase Calorie Intake, Add supplement feedings Comments: Diabetisource AC@goal rate 75 ml/hr w/200 ml water flushes q4 hrs or flushes per MD Expected Outcomes/Goals: TF tolerated at goal rate and providing > 60% est needs - met at times, ongoing Interpretation of weight loss: >7.5% in 3 months Malnutrition Findings: Food and Nutrition Intake (Mod: <75% est energy req 7days Malnutrition related to morbid: BMI>or equal to 40 Malnutrition related to morbid: Yes Weight Status: Morbidly Obese KASSIE COKER III DO Jul 02, 2017 11:03
--- NOTE | 2017-07-02 11:31 | PDOC ---
Renal-Progress Notes Subjective Notes Notes NONE History of Present Illness Hx of present illness STABLE Vitals Vitals Vital Signs Date Time Temp Pulse Resp B/P (MAP) Pulse Ox O2 Delivery O2 Flow Rate FiO2 07/02/17 10:41 98.1 93 22 154/61 98.1 07/02/17 07:00 99 Nasal Cannula 2.0 Weight Weight [ ] I.O. Intake and Output Intake and Output 07/02/17 07:00 Intake Total 897 ml Output Total 1605 ml Balance -708 ml Intake Oral 50 ml IV Total 847 ml Output Urine Total 1125 ml Emesis 250 ml Chest Tube Drainage Total 230 ml Labs Labs Laboratory Tests Test 07/01/17 16:49 07/01/17 21:18 07/02/17 03:40 07/02/17 08:51 O2 Saturation 97 % (92-99) Arterial Blood pH 7.41 (7.35-7.45) Arterial Blood pCO2 at Patient Temp 48 mmHg (35-46) Arterial Blood pO2 at Patient Temp 99 mmHg (65-108) Arterial Blood HCO3 29 mmol/L (21-28) Arterial Blood Base Excess 4 mmol/L (-3-3) FiO2 28 Glucose (Fingerstick) 210 mg/dL (70-99) 43 mg/dL (70-99) White Blood Count 6.7 x10^3/uL (4.0-11.0) Red Blood Count 2.19 x10^6/uL (4.30-5.70) Hemoglobin 6.9 g/dL (13.0-17.5) Hematocrit 21.4 % (39.0-53.0) Mean Corpuscular Volume 98 fL (79-100) Mean Corpuscular Hemoglobin 32 pg (25-35) Mean Corpuscular Hemoglobin Concent 32 g/dL (31-37) Red Cell Distribution Width 20.1 % (11.5-14.5) Platelet Count 240 x10^3/uL (140-400) Neutrophils (%) (Auto) 77 % (31-73) Lymphocytes (%) (Auto) 12 % (24-48) Monocytes (%) (Auto) 9 % (0-9) Eosinophils (%) (Auto) 1 % (0-3) Basophils (%) (Auto) 1 % (0-3) Neutrophils # (Auto) 5.1 x10^3uL (1.8-7.7) Lymphocytes # (Auto) 0.8 x10^3/uL (1.0-4.8) Monocytes # (Auto) 0.6 x10^3/uL (0.0-1.1) Eosinophils # (Auto) 0.1 x10^3/uL (0.0-0.7) Basophils # (Auto) 0.0 x10^3/uL (0.0-0.2) Sodium Level 149 mmol/L (136-145) Potassium Level 3.5 mmol/L (3.5-5.1) Chloride Level 110 mmol/L (98-107) Carbon Dioxide Level 31 mmol/L (21-32) Anion Gap 8 (6-14) Blood Urea Nitrogen 55 mg/dL (8-26) Creatinine 2.3 mg/dL (0.7-1.3) Estimated GFR (Cockcroft-Gault) 27.9 Glucose Level 90 mg/dL (70-99) Calcium Level 8.1 mg/dL (8.5-10.1) Magnesium Level 1.5 mg/dL (1.8-2.4) Test 07/02/17 09:23 07/02/17 09:35 07/02/17 10:39 Glucose (Fingerstick) 71 mg/dL (70-99) 74 mg/dL (70-99) 97 mg/dL (70-99) Micro Micro Microbiology 06/29/17 Gram Stain - Final, Complete Review of Systems Constitutional: yes: weakness, alert, oriented Ears/Nose/Throat: Yes: no symptom reported Eyes: Yes: no symptom reported Pulmonary: Yes dyspnea Cardiovascular: Yes no symptom reported Gastrointestional: Yes: constipation Genitourinary: Yes: no symptom reported Musculoskeletal: Yes: muscle stiffness Skin: Yes color change Endocrine: Yes: no symptom reported Physical Exam General Appearance: no apparent distress Skin: warm Respiratory: decreased breath sounds Abdomen: soft, bowel sounds present Genitourinary: bladder flat Extremities: pulses present, other (LEFT BKA) Neurology: alert, follow commands Assessment Assessment IMP REJI-ATN-CR OF 2.3 TODAY CKD - CHRONIC ALLOGRAFT NEPHROPATHY WITH CR OF 1.9-2.4 AT BASELINE HX OR RENAL TRANSPLANT 15 YEARS AGO-LIVING RELATED(SON) PLEURAL EFFUSION-S/P RIGHT THORACOSTOMY TUBE DIASTOLIC CHF-IMPROVING ACUTE ON CHRONIC RESP FAILURE-S/P EXTUBATION ANEMIA OF CHRONIC DISEASE CHRONIC AFIB BEVERLY/PULM HTN RENAL MASS WITH ? METS LE LYMPHEDEMA S/P LEFT BKA EARLIER THIS YEAR SEVERE DECONDITIONING CHRONIC IMMUNOSUPPRESSION MILD HYPOKALEMIA-CONT TO HOLD LASIX PLAN OFF LASIX CONT PPN PROB RESUME ORAL LASIX IN A DAY OR TWO CONT WITH AND DOP CONT ARANESP PRBC TODAY CONT PROGRAF AND IMURAN ALEJANDRO RIOS MD Jul 02, 2017 11:31
[2017-07-02] MEDS ORDERED: diphenhydrAMINE ORAL ELIXIR 12.5 MG/5 ML ML PO PRN (11:45)
[2017-07-02] MEDS ORDERED: diphenhydrAMINE HCL 25 MG CAPSULE PO PRN (11:45)
[2017-07-02] MEDS ORDERED: ACETAMINOPHEN 325 MG TABLET. PO PRN (11:45)
--- NOTE | 2017-07-02 13:46 | PDOC ---
PULMONARY PROGRESS NOTES Subjective EXTUBATED 06/25 NOW ON N/C QHS BIPAP Vitals Vital Signs Date Time Temp Pulse Resp B/P (MAP) Pulse Ox O2 Delivery O2 Flow Rate FiO2 07/02/17 11:00 98.2 85 18 134/86 (102) 94 Nasal Cannula 2.0 98.2 ROS: No Chest Pain, No Abdominal Pain, No Increase Cough General: Alert, No acute distress Lungs: Clear Cardiovascular: S1, S2 Abdomen: Soft, Other (obese) Neuro Exam: Alert Extremities: Other (right lymphedema, left BKA) Skin: Warm Labs Laboratory Tests Test 06/30/17 20:38 07/01/17 05:40 07/01/17 16:49 07/01/17 21:18 Glucose (Fingerstick) 87 mg/dL (70-99) 210 mg/dL (70-99) White Blood Count 7.9 x10^3/uL (4.0-11.0) Red Blood Count 2.48 x10^6/uL (4.30-5.70) Hemoglobin 7.7 g/dL (13.0-17.5) Hematocrit 24.2 % (39.0-53.0) Mean Corpuscular Volume 97 fL (79-100) Mean Corpuscular Hemoglobin 31 pg (25-35) Mean Corpuscular Hemoglobin Concent 32 g/dL (31-37) Red Cell Distribution Width 20.3 % (11.5-14.5) Platelet Count 232 x10^3/uL (140-400) Neutrophils (%) (Auto) 63 % (31-73) Lymphocytes (%) (Auto) 19 % (24-48) Monocytes (%) (Auto) 12 % (0-9) Eosinophils (%) (Auto) 6 % (0-3) Basophils (%) (Auto) 1 % (0-3) Neutrophils # (Auto) 5.0 x10^3uL (1.8-7.7) Lymphocytes # (Auto) 1.5 x10^3/uL (1.0-4.8) Monocytes # (Auto) 1.0 x10^3/uL (0.0-1.1) Eosinophils # (Auto) 0.5 x10^3/uL (0.0-0.7) Basophils # (Auto) 0.1 x10^3/uL (0.0-0.2) Sodium Level 148 mmol/L (136-145) Potassium Level 3.4 mmol/L (3.5-5.1) Chloride Level 108 mmol/L (98-107) Carbon Dioxide Level 30 mmol/L (21-32) Anion Gap 10 (6-14) Blood Urea Nitrogen 48 mg/dL (8-26) Creatinine 2.4 mg/dL (0.7-1.3) Estimated GFR (Cockcroft-Gault) 26.6 Glucose Level 88 mg/dL (70-99) Calcium Level 8.6 mg/dL (8.5-10.1) O2 Saturation 97 % (92-99) Arterial Blood pH 7.41 (7.35-7.45) Arterial Blood pCO2 at Patient Temp 48 mmHg (35-46) Arterial Blood pO2 at Patient Temp 99 mmHg (65-108) Arterial Blood HCO3 29 mmol/L (21-28) Arterial Blood Base Excess 4 mmol/L (-3-3) FiO2 28 Test 07/02/17 03:40 07/02/17 08:51 07/02/17 09:23 07/02/17 09:35 White Blood Count 6.7 x10^3/uL (4.0-11.0) Red Blood Count 2.19 x10^6/uL (4.30-5.70) Hemoglobin 6.9 g/dL (13.0-17.5) Hematocrit 21.4 % (39.0-53.0) Mean Corpuscular Volume 98 fL (79-100) Mean Corpuscular Hemoglobin 32 pg (25-35) Mean Corpuscular Hemoglobin Concent 32 g/dL (31-37) Red Cell Distribution Width 20.1 % (11.5-14.5) Platelet Count 240 x10^3/uL (140-400) Neutrophils (%) (Auto) 77 % (31-73) Lymphocytes (%) (Auto) 12 % (24-48) Monocytes (%) (Auto) 9 % (0-9) Eosinophils (%) (Auto) 1 % (0-3) Basophils (%) (Auto) 1 % (0-3) Neutrophils # (Auto) 5.1 x10^3uL (1.8-7.7) Lymphocytes # (Auto) 0.8 x10^3/uL (1.0-4.8) Monocytes # (Auto) 0.6 x10^3/uL (0.0-1.1) Eosinophils # (Auto) 0.1 x10^3/uL (0.0-0.7) Basophils # (Auto) 0.0 x10^3/uL (0.0-0.2) Sodium Level 149 mmol/L (136-145) Potassium Level 3.5 mmol/L (3.5-5.1) Chloride Level 110 mmol/L (98-107) Carbon Dioxide Level 31 mmol/L (21-32) Anion Gap 8 (6-14) Blood Urea Nitrogen 55 mg/dL (8-26) Creatinine 2.3 mg/dL (0.7-1.3) Estimated GFR (Cockcroft-Gault) 27.9 Glucose Level 90 mg/dL (70-99) Calcium Level 8.1 mg/dL (8.5-10.1) Magnesium Level 1.5 mg/dL (1.8-2.4) Glucose (Fingerstick) 43 mg/dL (70-99) 71 mg/dL (70-99) 74 mg/dL (70-99) Test 07/02/17 10:39 07/02/17 11:50 Glucose (Fingerstick) 97 mg/dL (70-99) 97 mg/dL (70-99) Laboratory Tests Test 07/01/17 16:49 07/01/17 21:18 07/02/17 03:40 07/02/17 08:51 O2 Saturation 97 % (92-99) Arterial Blood pH 7.41 (7.35-7.45) Arterial Blood pCO2 at Patient Temp 48 mmHg (35-46) Arterial Blood pO2 at Patient Temp 99 mmHg (65-108) Arterial Blood HCO3 29 mmol/L (21-28) Arterial Blood Base Excess 4 mmol/L (-3-3) FiO2 28 Glucose (Fingerstick) 210 mg/dL (70-99) 43 mg/dL (70-99) White Blood Count 6.7 x10^3/uL (4.0-11.0) Red Blood Count 2.19 x10^6/uL (4.30-5.70) Hemoglobin 6.9 g/dL (13.0-17.5) Hematocrit 21.4 % (39.0-53.0) Mean Corpuscular Volume 98 fL (79-100) Mean Corpuscular Hemoglobin 32 pg (25-35) Mean Corpuscular Hemoglobin Concent 32 g/dL (31-37) Red Cell Distribution Width 20.1 % (11.5-14.5) Platelet Count 240 x10^3/uL (140-400) Neutrophils (%) (Auto) 77 % (31-73) Lymphocytes (%) (Auto) 12 % (24-48) Monocytes (%) (Auto) 9 % (0-9) Eosinophils (%) (Auto) 1 % (0-3) Basophils (%) (Auto) 1 % (0-3) Neutrophils # (Auto) 5.1 x10^3uL (1.8-7.7) Lymphocytes # (Auto) 0.8 x10^3/uL (1.0-4.8) Monocytes # (Auto) 0.6 x10^3/uL (0.0-1.1) Eosinophils # (Auto) 0.1 x10^3/uL (0.0-0.7) Basophils # (Auto) 0.0 x10^3/uL (0.0-0.2) Sodium Level 149 mmol/L (136-145) Potassium Level 3.5 mmol/L (3.5-5.1) Chloride Level 110 mmol/L (98-107) Carbon Dioxide Level 31 mmol/L (21-32) Anion Gap 8 (6-14) Blood Urea Nitrogen 55 mg/dL (8-26) Creatinine 2.3 mg/dL (0.7-1.3) Estimated GFR (Cockcroft-Gault) 27.9 Glucose Level 90 mg/dL (70-99) Calcium Level 8.1 mg/dL (8.5-10.1) Magnesium Level 1.5 mg/dL (1.8-2.4) Test 07/02/17 09:23 07/02/17 09:35 07/02/17 10:39 07/02/17 11:50 Glucose (Fingerstick) 71 mg/dL (70-99) 74 mg/dL (70-99) 97 mg/dL (70-99) 97 mg/dL (70-99) Medications Active Scripts Medications Dose Route/Sig Max Daily Dose Days Date Category Amlodipine Besylate 5 Mg Tablet 10 Mg PO DAILY 06/22/17 Reported Azathioprine 50 Mg Tablet 4 Tab PO DAILY 06/22/17 Reported Docusate Sodium 100 Mg Capsule 1 Cap PO TID PRN PRN 06/22/17 Reported Ferrous Sulfate 325 Mg Tablet 1 Tab PO BIDAC 06/22/17 Reported Ondansetron Hcl 4 Mg Tablet 1 Tab PO PRN Q8HRS PRN 06/22/17 Reported Prednisone 10 Mg Tablet 5 Mg PO DAILY 06/22/17 Reported Thiamine Hcl 100 Mg Tablet 100 Mg PO 06/22/17 Reported Nystatin-Triamcinolone Cream (Nystatin/Triamcin) 15 Gm Cream..g. 1 Alexis TP BID 06/22/17 Reported Pantoprazole Sodium 40 Mg Tablet.dr 1 Tab PO DAILY 06/22/17 Reported Tacrolimus 0.5 Mg Capsule 0.5 Mg PO DAILY 06/22/17 Reported Tylenol (Acetaminophen) 325 Mg Tablet 1 Tab PO PRN Q6HRS PRN 06/22/17 Reported Haloperidol 0.5 Mg Tablet 0.25 Mg PO PRN Q8HRS PRN 06/22/17 Reported Metoprolol Tartrate 50 Mg Tablet 3 Tab PO BID 06/22/17 Reported Keflex (Cephalexin) 500 Mg Capsule 500 Mg PO QID 5 06/30/15 Rx Novolog Flexpen (Insulin Aspart) 100 Unit/1 Ml Insuln.pen 22 Unit SQ AC SUPPER 06/26/15 Reported Novolog Flexpen (Insulin Aspart) 100 Unit/1 Ml Insuln.pen 18 Unit SQ AC LUNCH 06/26/15 Reported Novolog Flexpen (Insulin Aspart) 100 Unit/1 Ml Insuln.pen 10 Unit SQ AC BREAKFAST 06/26/15 Reported Levothyroxine Sodium 88 Mcg Tablet 1 Tab PO DAILY 06/24/15 Reported Atorvastatin Calcium 10 Mg Tablet 1 Tab PO DAILY 06/24/15 Reported Loratadine 10 Mg Tablet 1 Tab PO DAILY 06/24/15 Reported Hydrochlorothiazide Tablet (Hydrochlorothiazide) 25 Mg Tablet 25 Mg PO DAILY 06/24/15 Reported Pepcid Ac (Famotidine) 20 Mg Tablet 20 Mg PO HS 06/24/15 Reported Tacrolimus 1 Mg Capsule 1 Mg PO BID 06/24/15 Reported Men's Multivitamin Gummies (Folic Acid/Multivit-Minerals) 200 Mcg Tab.chew 200 Mcg PO 06/24/15 Reported Aspirin 81 Mg Tab.chew 1 Tab PO DAILY 06/24/15 Reported Lantus (Insulin Glargine,Hum.rec.anlog) 100 Unit/1 Ml Vial 70 Unit SQ QHS 06/24/15 Reported Alendronate Sodium 70 Mg Tablet 70 Mg PO WEEKLY 06/24/15 Reported Comments IMPRESSION: CT 06/28 1. Ongoing moderate sized bilateral pleural effusions with considerable underlying atelectasis, worse in the lower lobes. 2. Moderate bilateral interlobular septal thickening compatible with interstitial pulmonary edema. 3. Extensive calcific plaquing of the aorta and coronary arteries. Impression . 1. Acute hypercapnic respiratory failure secondary to multifactorial in nature 2. Abnormal ct chest with EFFUSIONS S/P CHEST TUBE 3. Renal transplant and acute kidney FAILURE 4. Methicillin-resistant Staphylococcus aureus infection. 5. Hypernatremia 6. Severe protein-calorie malnutrition POA 7. Morbid obesity 8. Suspect BEVERLY/OHS 9. Acute/Chronic Cor Pulmonale 10. Chronic Lower Ext Lymphedema 11. Bilateral effusion Plan . OVER 200 CC DRAINED IN PAST 24 HOURS PRN BIPAP/BIPAP QHS 2 LITERS OF FLUID DRAINED IN FIRST 24 HOURS CONTINUE IV DOP/LASIX/DOBUTAMINE ONCE DRAINAGE < 200 CC /24 HR, WILL REMOVE CHEST TUBE MARKY HUSSEIN MD Jul 02, 2017 13:46
--- NOTE | 2017-07-02 13:53 | PDOC ---
PROGRESS NOTES Subjective Subjective Feels better with dyspnea continuing to improve Objective Objective Vital Signs Date Time Temp Pulse Resp B/P (MAP) Pulse Ox O2 Delivery O2 Flow Rate FiO2 07/02/17 12:00 98.2 90 18 134/86 98.2 07/02/17 11:00 94 Nasal Cannula 2.0 Intake and Output 07/02/17 07:00 Intake Total 897 ml Output Total 1605 ml Balance -708 ml Intake Oral 50 ml IV Total 847 ml Output Urine Total 1125 ml Emesis 250 ml Chest Tube Drainage Total 230 ml Physical Exam Abdomen: Soft, Other (obese) Heart: Other (AFIB rate controlled; distant heart sounds) Extremities: No clubbing, No cyanosis General: Alert, Oriented X3, Other (Asleep) HEENT: Atraumatic Lungs: Other (basilar crackles; intubated with mechanical ventilator) MUSCULOSKELETAL: Other (LAKA) Neuro: Other (sedated) Skin: No rashes, Other (chronic venous stasis changes) Assessment Assessment 1. Acute on chronic respiratory failure: extubated, doing better. Symptoms improved s/p thoracentesis and better diuresis. Diuretics on hold per nephrology team. Pulmonary following 2. Acute on chronic diastolic CHF: Normal EF 55% with normal wall motion and moderate aortic insufficiency. Improved diuresis after initiating dopamine and dobutamine infusions. 3. Uncontrolled BEVERLY/moderate pulmonary HTN 4. Metabolic/hypoxic encephalopathy - improved 5. Chronic AFIB/LBBB: remains rate controlled. Patient refused long-term anticoagulation in the past 6. REJI on CKD: per nephrology 7. Renal transplant recipient with chronic immunosuppression 8. HTN: Blood pressure better controlled. 9. DM2/HLP - per IM 10. Hypothyroidism 11. PVD: severe lymphedema with dermatitis. LAKA 12. Protein malnutrition 13. Morbid obesity Plan Plan of Care Problems Medical Problems: (1) Acute encephalopathy Status: Acute (2) Pulmonary edema Status: Acute (3) Respiratory acidosis Status: Acute Comment Review of Relevant I have reviewed the following items buzz (where applicable) has been applied. Labs Laboratory Tests Test 07/01/17 16:49 07/01/17 21:18 07/02/17 03:40 07/02/17 08:51 O2 Saturation 97 % (92-99) Arterial Blood pH 7.41 (7.35-7.45) Arterial Blood pCO2 at Patient Temp 48 mmHg (35-46) Arterial Blood pO2 at Patient Temp 99 mmHg (65-108) Arterial Blood HCO3 29 mmol/L (21-28) Arterial Blood Base Excess 4 mmol/L (-3-3) FiO2 28 Glucose (Fingerstick) 210 mg/dL (70-99) 43 mg/dL (70-99) White Blood Count 6.7 x10^3/uL (4.0-11.0) Red Blood Count 2.19 x10^6/uL (4.30-5.70) Hemoglobin 6.9 g/dL (13.0-17.5) Hematocrit 21.4 % (39.0-53.0) Mean Corpuscular Volume 98 fL (79-100) Mean Corpuscular Hemoglobin 32 pg (25-35) Mean Corpuscular Hemoglobin Concent 32 g/dL (31-37) Red Cell Distribution Width 20.1 % (11.5-14.5) Platelet Count 240 x10^3/uL (140-400) Neutrophils (%) (Auto) 77 % (31-73) Lymphocytes (%) (Auto) 12 % (24-48) Monocytes (%) (Auto) 9 % (0-9) Eosinophils (%) (Auto) 1 % (0-3) Basophils (%) (Auto) 1 % (0-3) Neutrophils # (Auto) 5.1 x10^3uL (1.8-7.7) Lymphocytes # (Auto) 0.8 x10^3/uL (1.0-4.8) Monocytes # (Auto) 0.6 x10^3/uL (0.0-1.1) Eosinophils # (Auto) 0.1 x10^3/uL (0.0-0.7) Basophils # (Auto) 0.0 x10^3/uL (0.0-0.2) Sodium Level 149 mmol/L (136-145) Potassium Level 3.5 mmol/L (3.5-5.1) Chloride Level 110 mmol/L (98-107) Carbon Dioxide Level 31 mmol/L (21-32) Anion Gap 8 (6-14) Blood Urea Nitrogen 55 mg/dL (8-26) Creatinine 2.3 mg/dL (0.7-1.3) Estimated GFR (Cockcroft-Gault) 27.9 Glucose Level 90 mg/dL (70-99) Calcium Level 8.1 mg/dL (8.5-10.1) Magnesium Level 1.5 mg/dL (1.8-2.4) Test 07/02/17 09:23 07/02/17 09:35 07/02/17 10:39 07/02/17 11:50 Glucose (Fingerstick) 71 mg/dL (70-99) 74 mg/dL (70-99) 97 mg/dL (70-99) 97 mg/dL (70-99) Microbiology 06/29/17 Gram Stain - Final, Complete Medications Current Medications Acetaminophen (Tylenol) 650 mg 1X PRN PRN PO PRE-TRANSFUSION; Start 07/02/17 at 11:45 Amino Acids/ Glycerin/ Electrolytes 1,000 ml @ 75 mls/hr [id number] IV Last administered on 07/02/17 09:00; Start 07/02/17 at 09:00 Diphenhydramine HCl (Benadryl Oral Elixir) 12.5 mg 1X PRN PRN PO PRE- TRANSFUSION; Start 07/02/17 at 11:45 Diphenhydramine HCl (Benadryl) 25 mg PRN 1X PRN PO PRE-TRANSFUSION Last administered on 07/02/17 11:53; Start 07/02/17 at 11:45; Stop 07/02/17 at 11 :54; Status DC Insulin Detemir (Levemir) 55 units QHS SQ Last administered on 07/01/17 21:25 ; Start 07/01/17 at 21:00 Vitals/I & O Vital Sign - Last 24 Hours 07/01/17 07/01/17 07/01/17 07/01/17 16:00 16:00 20:30 20:30 Temp 98.2 98.6 98.2 98.6 Pulse 92 92 Resp 19 20 B/P (MAP) 125/45 (71) 131/62 (85) Pulse Ox 95 98 O2 Delivery Room Air Room Air Room Air O2 Flow Rate 3.0 07/01/17 07/01/17 07/01/17 07/01/17 21:29 21:30 22:49 23:54 Temp 98.1 98.1 Pulse 107 103 89 93 Resp 20 20 B/P (MAP) 125/58 129/58 (81) 127/60 (82) 137/61 (86) Pulse Ox 100 100 100 O2 Delivery Room Air Room Air Nasal Cannula O2 Flow Rate 2.0 07/02/17 07/02/17 07/02/17 07/02/17 01:00 02:00 03:53 07:00 Temp 98.1 98.1 98.1 98.1 Pulse 87 86 83 96 Resp 20 20 B/P (MAP) 142/63 (89) 117/58 (77) 133/61 (85) 154/61 (92) Pulse Ox 100 99 O2 Delivery Nasal Cannula Nasal Cannula O2 Flow Rate 2.0 2.0 07/02/17 07/02/17 07/02/17 07/02/17 08:27 08:28 10:41 11:00 Temp 98.1 98.2 98.1 98.2 Pulse 83 83 93 87 Resp 22 18 B/P (MAP) 133/61 133/61 154/61 135/84 07/02/17 07/02/17 11:00 12:00 Temp 98.2 98.2 98.2 98.2 Pulse 85 90 Resp 18 18 B/P (MAP) 134/86 (102) 134/86 Pulse Ox 94 O2 Delivery Nasal Cannula O2 Flow Rate 2.0 Intake and Output 07/01/17 07/01/17 07/02/17 15:00 23:00 07:00 Intake Total 847 ml 50 ml Output Total 705 ml 220 ml 680 ml Balance -705 ml 627 ml -630 ml ATILIO HUGHES MD Jul 02, 2017 13:53
--- NOTE | 2017-07-02 14:05 | PDOC2 ---
PALLIATIVE CARE Palliative Care Note Palliative Care Patient more alert today. at bedside,. Draining from chest tube noted. Currently receiving blood. Goal is to continue current aggressive care. Spoke with [facility] regarding LTAC screen. RIC DING Jul 02, 2017 14:05
[2017-07-02 17:20] LABS: HEMATOCRIT 23.6 % (39.0-53.0); HEMOGLOBIN 7.7 g/dL (13.0-17.5)
[2017-07-02] MEDS: FAMOTIDINE 20 MG TABLET. PO SCH (20:30)
[2017-07-02] MEDS: INSULIN DETEMIR 300 UNITS/3 ML INSULN.PEN. SQ SCH (20:38)
[2017-07-03 03:54] VITALS: BP 184/72
[2017-07-03 06:44] LABS: BASO % 1 % (0-3); EOS % 1 % (0-3); HEMATOCRIT 22.6 % (39.0-53.0); HEMOGLOBIN 7.3 g/dL (13.0-17.5); LYMPH # 0.6 x10^3/uL (1.0-4.8); LYMPH % 9 % (24-48); MEAN CORPUSCULAR HEMOGLOBIN 31 pg (25-35); MEAN CORPUSCULAR HGB CONC 32 g/dL (31-37); MEAN CORPUSCULAR VOLUME 96 fL (79-100); MONO % 7 % (0-9); NEUT % 83 % (31-73); PLATELET COUNT 244 x10^3/uL (140-400); RED BLOOD COUNT 2.36 x10^6/uL (4.30-5.70); WHITE BLOOD COUNT 6.5 x10^3/uL (4.0-11.0)
[2017-07-03 06:58] LABS: CALCIUM 8.2 mg/dL (8.5-10.1); CREATININE 2.1 mg/dL (0.7-1.3); POTASSIUM 3.9 mmol/L (3.5-5.1)
[2017-07-03 07:00] VITALS: BP 146/67
[2017-07-03] MEDS: LEVOTHYROXINE 88 MCG TABLET PO SCH (07:02)
--- NOTE | 2017-07-03 07:50 | RAD ---
Portable chest, 07/03/2017: History: Pleural effusion Comparison is made to yesterday's study. A right jugular central venous catheter has its tip lying in the right innominate vein region. The heart is enlarged. There is calcific plaquing of the aorta. There is a moderate unchanged left basilar opacity compatible with atelectasis/infiltrate and probable pleural fluid. No definite right lung infiltrate is seen. No new abnormality is detected. IMPRESSION: Unchanged moderate left basilar opacity compatible with pleural fluid and underlying atelectasis/infiltrate.
[2017-07-03] MEDS: azaTHIOprine 50 MG TABLET PO SCH (08:49)
[2017-07-03] MEDS: TACROLIMUS 1 MG CAPSULE PO SCH ×2 (08:49→21:00)
[2017-07-03] MEDS: ATORVASTATIN CALCIUM 10 MG TABLET. PO SCH ×2 (08:50→21:00)
[2017-07-03] MEDS: ASPIRIN CHEWABLE 81 MG TABLET. PO SCH (08:50)
[2017-07-03] MEDS: predniSONE 20 MG TABLET PO SCH (08:50)
[2017-07-03] MEDS: METOPROLOL TART IMMED RELEASE 50 MG TABLET. PO SCH ×2 (08:52→21:00)
[2017-07-03] MEDS: CETIRIZINE HCL 10 MG TABLET. PO SCH (08:53)
[2017-07-03] MEDS: ISOSORBIDE MONONITRATE ER 30 MG TAB.ER.24H PO SCH (08:53)
[2017-07-03] MEDS: ENOXAPARIN 40 MG/0.4 ML SYRINGE. SQ SCH ×2 (08:54→09:00)
[2017-07-03] MEDS: NYSTATIN TOPICAL POWDER 15GM BOTTLE. TP SCH ×2 (08:58→21:00)
[2017-07-03 11:00] VITALS: BP_SYST 167; BP_SYST 170; BP_SYST 192; BP_SYST 205; BP_SYST 208; BP_DIAS 69; BP_DIAS 72; BP_DIAS 75; BP_DIAS 81; BP_DIAS 89
[2017-07-03] MEDS: hydrALAZINE 20 MG/ML VIAL. IVP PRN (11:13)
--- NOTE | 2017-07-03 11:47 | PDOC ---
Renal-Progress Notes Subjective Notes Notes NONE History of Present Illness Hx of present illness BETTER Vitals Vitals Vital Signs Date Time Temp Pulse Resp B/P (MAP) Pulse Ox O2 Delivery O2 Flow Rate FiO2 07/03/17 11:13 86 170/72 07/03/17 11:00 97.6 20 100 Nasal Cannula 2.0 97.6 Weight Weight [ ] I.O. Intake and Output Intake and Output 07/03/17 07:00 Intake Total 3770 ml Output Total 1145 ml Balance 2625 ml Intake Oral 1140 ml IV Total 1000 ml Blood Product IV Normal Saline Flush 1630 ml Output Urine Total 950 ml Emesis 50 ml Chest Tube Drainage Total 145 ml Labs Labs Laboratory Tests Test 07/02/17 11:50 07/02/17 17:10 07/02/17 17:44 07/02/17 20:27 Glucose (Fingerstick) 97 mg/dL (70-99) 199 mg/dL (70-99) 242 mg/dL (70-99) Hemoglobin 7.7 g/dL (13.0-17.5) Hematocrit 23.6 % (39.0-53.0) Mean Corpuscular Hemoglobin Concent 33 g/dL (31-37) Test 07/02/17 23:47 07/03/17 06:30 07/03/17 07:39 07/03/17 10:17 Glucose (Fingerstick) 176 mg/dL (70-99) 106 mg/dL (70-99) 124 mg/dL (70-99) White Blood Count 6.5 x10^3/uL (4.0-11.0) Red Blood Count 2.36 x10^6/uL (4.30-5.70) Hemoglobin 7.3 g/dL (13.0-17.5) Hematocrit 22.6 % (39.0-53.0) Mean Corpuscular Volume 96 fL (79-100) Mean Corpuscular Hemoglobin 31 pg (25-35) Mean Corpuscular Hemoglobin Concent 32 g/dL (31-37) Red Cell Distribution Width 20.0 % (11.5-14.5) Platelet Count 244 x10^3/uL (140-400) Neutrophils (%) (Auto) 83 % (31-73) Lymphocytes (%) (Auto) 9 % (24-48) Monocytes (%) (Auto) 7 % (0-9) Eosinophils (%) (Auto) 1 % (0-3) Basophils (%) (Auto) 1 % (0-3) Neutrophils # (Auto) 5.4 x10^3uL (1.8-7.7) Lymphocytes # (Auto) 0.6 x10^3/uL (1.0-4.8) Monocytes # (Auto) 0.4 x10^3/uL (0.0-1.1) Eosinophils # (Auto) 0.0 x10^3/uL (0.0-0.7) Basophils # (Auto) 0.0 x10^3/uL (0.0-0.2) Sodium Level 146 mmol/L (136-145) Potassium Level 3.9 mmol/L (3.5-5.1) Chloride Level 107 mmol/L (98-107) Carbon Dioxide Level 32 mmol/L (21-32) Anion Gap 7 (6-14) Blood Urea Nitrogen 52 mg/dL (8-26) Creatinine 2.1 mg/dL (0.7-1.3) Estimated GFR (Cockcroft-Gault) 31.0 Glucose Level 118 mg/dL (70-99) Calcium Level 8.2 mg/dL (8.5-10.1) Micro Micro Microbiology 06/29/17 Gram Stain - Final, Complete Review of Systems Constitutional: yes: weakness, alert, oriented Ears/Nose/Throat: Yes: no symptom reported Eyes: Yes: no symptom reported Pulmonary: Yes dyspnea Cardiovascular: Yes no symptom reported Gastrointestional: Yes: constipation Genitourinary: Yes: no symptom reported Musculoskeletal: Yes: muscle stiffness Skin: Yes color change Endocrine: Yes: no symptom reported Physical Exam General Appearance: no apparent distress Skin: warm Respiratory: decreased breath sounds Abdomen: soft, bowel sounds present Genitourinary: bladder flat Extremities: pulses present, other (LEFT BKA) Neurology: alert, follow commands Assessment Assessment IMP REJI-ATN-CR OF 2.1 TODAY CKD - CHRONIC ALLOGRAFT NEPHROPATHY WITH CR OF 1.9-2.4 AT BASELINE HX OR RENAL TRANSPLANT 15 YEARS AGO-LIVING RELATED(SON) PLEURAL EFFUSION-S/P RIGHT THORACOSTOMY TUBE DIASTOLIC CHF-IMPROVING ACUTE ON CHRONIC RESP FAILURE-S/P EXTUBATION ANEMIA OF CHRONIC DISEASE CHRONIC AFIB BEVERLY/PULM HTN RENAL MASS WITH ? METS LE LYMPHEDEMA S/P LEFT BKA EARLIER THIS YEAR SEVERE DECONDITIONING CHRONIC IMMUNOSUPPRESSION MILD HYPOKALEMIA-BETTER MILD HYPERNATREMIA PLAN LOW DOSE PO LASIX CONT PPN CONT WITH AND DOP CONT ARANESP CONT PROGRAF AND IMURAN ALEJANDRO RIOS MD Jul 03, 2017 11:47
[2017-07-03] MEDS: AMINO AC 3%/ELECTROLYTE/GLYCER 1,000 ML IV SCH (12:36)
[2017-07-03] MEDS: FUROSEMIDE 40 MG TABLET. PO SCH (12:37)
--- NOTE | 2017-07-03 12:44 | PDOC3 ---
Discharge Summary Visit Information Date of Admission: Jun 22, 2017 Date of Discharge: Jul 03, 2017 Admitting Diagnosis: acute resp failure Admitting Diagnosis Comment: 1. Acute on chronic respiratory failure: extubated, doing better. Symptoms improved s/p thoracentesis and better diuresis. Diuretics on hold per nephrology team. Pulmonary following 2. Acute on chronic diastolic CHF: Normal EF 55% with normal wall motion and moderate aortic insufficiency. Improved diuresis after initiating dopamine and dobutamine infusions. 3. Uncontrolled BEVERLY/moderate pulmonary HTN 4. Metabolic/hypoxic encephalopathy - improved 5. Chronic AFIB/LBBB: remains rate controlled. Patient refused long-term anticoagulation in the past 6. REJI on CKD: per nephrology 7. Renal transplant recipient with chronic immunosuppression 8. HTN: Blood pressure better controlled. 9. DM2/HLP - per IM 10. Hypothyroidism 11. PVD: severe lymphedema with dermatitis. LAKA 12. Protein malnutrition 13. Morbid obesity Final Diagnosis Problems Medical Problems: (1) Acute encephalopathy Status: Acute (2) Pulmonary edema Status: Acute (3) Respiratory acidosis Status: Acute Brief Hospital Course Allergies Allergies Coded Allergies Type Severity Reaction Last Updated Verified No Known Drug Allergies 05/08/17 No Vital Signs Vital Signs Date Time Temp Pulse Resp B/P (MAP) Pulse Ox O2 Delivery O2 Flow Rate FiO2 07/03/17 11:13 86 170/72 07/03/17 11:00 97.6 20 100 Nasal Cannula 2.0 97.6 Lab Results Laboratory Tests Test 07/01/17 16:49 07/01/17 21:18 07/02/17 03:40 07/02/17 08:51 O2 Saturation 97 % (92-99) Arterial Blood pH 7.41 (7.35-7.45) Arterial Blood pCO2 at Patient Temp 48 mmHg (35-46) Arterial Blood pO2 at Patient Temp 99 mmHg (65-108) Arterial Blood HCO3 29 mmol/L (21-28) Arterial Blood Base Excess 4 mmol/L (-3-3) FiO2 28 Glucose (Fingerstick) 210 mg/dL (70-99) 43 mg/dL (70-99) White Blood Count 6.7 x10^3/uL (4.0-11.0) Red Blood Count 2.19 x10^6/uL (4.30-5.70) Hemoglobin 6.9 g/dL (13.0-17.5) Hematocrit 21.4 % (39.0-53.0) Mean Corpuscular Volume 98 fL (79-100) Mean Corpuscular Hemoglobin 32 pg (25-35) Mean Corpuscular Hemoglobin Concent 32 g/dL (31-37) Red Cell Distribution Width 20.1 % (11.5-14.5) Platelet Count 240 x10^3/uL (140-400) Neutrophils (%) (Auto) 77 % (31-73) Lymphocytes (%) (Auto) 12 % (24-48) Monocytes (%) (Auto) 9 % (0-9) Eosinophils (%) (Auto) 1 % (0-3) Basophils (%) (Auto) 1 % (0-3) Neutrophils # (Auto) 5.1 x10^3uL (1.8-7.7) Lymphocytes # (Auto) 0.8 x10^3/uL (1.0-4.8) Monocytes # (Auto) 0.6 x10^3/uL (0.0-1.1) Eosinophils # (Auto) 0.1 x10^3/uL (0.0-0.7) Basophils # (Auto) 0.0 x10^3/uL (0.0-0.2) Sodium Level 149 mmol/L (136-145) Potassium Level 3.5 mmol/L (3.5-5.1) Chloride Level 110 mmol/L (98-107) Carbon Dioxide Level 31 mmol/L (21-32) Anion Gap 8 (6-14) Blood Urea Nitrogen 55 mg/dL (8-26) Creatinine 2.3 mg/dL (0.7-1.3) Estimated GFR (Cockcroft-Gault) 27.9 Glucose Level 90 mg/dL (70-99) Calcium Level 8.1 mg/dL (8.5-10.1) Magnesium Level 1.5 mg/dL (1.8-2.4) Test 07/02/17 09:23 07/02/17 09:35 07/02/17 10:39 07/02/17 11:50 Glucose (Fingerstick) 71 mg/dL (70-99) 74 mg/dL (70-99) 97 mg/dL (70-99) 97 mg/dL (70-99) Test 07/02/17 17:10 07/02/17 17:44 07/02/17 20:27 07/02/17 23:47 Hemoglobin 7.7 g/dL (13.0-17.5) Hematocrit 23.6 % (39.0-53.0) Mean Corpuscular Hemoglobin Concent 33 g/dL (31-37) Glucose (Fingerstick) 199 mg/dL (70-99) 242 mg/dL (70-99) 176 mg/dL (70-99) Test 07/03/17 06:30 07/03/17 07:39 07/03/17 10:17 White Blood Count 6.5 x10^3/uL (4.0-11.0) Red Blood Count 2.36 x10^6/uL (4.30-5.70) Hemoglobin 7.3 g/dL (13.0-17.5) Hematocrit 22.6 % (39.0-53.0) Mean Corpuscular Volume 96 fL (79-100) Mean Corpuscular Hemoglobin 31 pg (25-35) Mean Corpuscular Hemoglobin Concent 32 g/dL (31-37) Red Cell Distribution Width 20.0 % (11.5-14.5) Platelet Count 244 x10^3/uL (140-400) Neutrophils (%) (Auto) 83 % (31-73) Lymphocytes (%) (Auto) 9 % (24-48) Monocytes (%) (Auto) 7 % (0-9) Eosinophils (%) (Auto) 1 % (0-3) Basophils (%) (Auto) 1 % (0-3) Neutrophils # (Auto) 5.4 x10^3uL (1.8-7.7) Lymphocytes # (Auto) 0.6 x10^3/uL (1.0-4.8) Monocytes # (Auto) 0.4 x10^3/uL (0.0-1.1) Eosinophils # (Auto) 0.0 x10^3/uL (0.0-0.7) Basophils # (Auto) 0.0 x10^3/uL (0.0-0.2) Sodium Level 146 mmol/L (136-145) Potassium Level 3.9 mmol/L (3.5-5.1) Chloride Level 107 mmol/L (98-107) Carbon Dioxide Level 32 mmol/L (21-32) Anion Gap 7 (6-14) Blood Urea Nitrogen 52 mg/dL (8-26) Creatinine 2.1 mg/dL (0.7-1.3) Estimated GFR (Cockcroft-Gault) 31.0 Glucose Level 118 mg/dL (70-99) Calcium Level 8.2 mg/dL (8.5-10.1) Glucose (Fingerstick) 106 mg/dL (70-99) 124 mg/dL (70-99) Laboratory Tests Test 07/02/17 17:10 07/02/17 17:44 07/02/17 20:27 07/02/17 23:47 Hemoglobin 7.7 g/dL (13.0-17.5) Hematocrit 23.6 % (39.0-53.0) Mean Corpuscular Hemoglobin Concent 33 g/dL (31-37) Glucose (Fingerstick) 199 mg/dL (70-99) 242 mg/dL (70-99) 176 mg/dL (70-99) Test 07/03/17 06:30 07/03/17 07:39 07/03/17 10:17 White Blood Count 6.5 x10^3/uL (4.0-11.0) Red Blood Count 2.36 x10^6/uL (4.30-5.70) Hemoglobin 7.3 g/dL (13.0-17.5) Hematocrit 22.6 % (39.0-53.0) Mean Corpuscular Volume 96 fL (79-100) Mean Corpuscular Hemoglobin 31 pg (25-35) Mean Corpuscular Hemoglobin Concent 32 g/dL (31-37) Red Cell Distribution Width 20.0 % (11.5-14.5) Platelet Count 244 x10^3/uL (140-400) Neutrophils (%) (Auto) 83 % (31-73) Lymphocytes (%) (Auto) 9 % (24-48) Monocytes (%) (Auto) 7 % (0-9) Eosinophils (%) (Auto) 1 % (0-3) Basophils (%) (Auto) 1 % (0-3) Neutrophils # (Auto) 5.4 x10^3uL (1.8-7.7) Lymphocytes # (Auto) 0.6 x10^3/uL (1.0-4.8) Monocytes # (Auto) 0.4 x10^3/uL (0.0-1.1) Eosinophils # (Auto) 0.0 x10^3/uL (0.0-0.7) Basophils # (Auto) 0.0 x10^3/uL (0.0-0.2) Sodium Level 146 mmol/L (136-145) Potassium Level 3.9 mmol/L (3.5-5.1) Chloride Level 107 mmol/L (98-107) Carbon Dioxide Level 32 mmol/L (21-32) Anion Gap 7 (6-14) Blood Urea Nitrogen 52 mg/dL (8-26) Creatinine 2.1 mg/dL (0.7-1.3) Estimated GFR (Cockcroft-Gault) 31.0 Glucose Level 118 mg/dL (70-99) Calcium Level 8.2 mg/dL (8.5-10.1) Glucose (Fingerstick) 106 mg/dL (70-99) 124 mg/dL (70-99) Brief Hospital Course Mr. Palma is a 72 old male, [facility] resident, admitted for fluid overload chest pain shortness of breath. Patient has chronic lymphedema AKA on the left limited mobility etc. lots of comorbidities, (please refer to my assessment and plan above). Seeing the patient first time on the day of discharge. Patient stated about 2 weeks in the hospital. Patient comanage with pulmonary and cardiology. Necessitated some dobutamine and dopamine treat drip couple days. His been positive few liters and the few days prior to discharge. On Lasix. , discussed with cardiology. Has been accepted at [facility]. Discussed with brother. Awaiting for special boot from [facility]. Has this chest tube on the right awaiting further instructions from pulmonary. We'll also consult pulmonary once patient reaches [facility]. Need to maintain Ralph catheter after discussion with patient and brother. Patient is a full code. Right central line by subclavian. Dictation this done Discharge disposition to [facility] Patient seen and examined discussed with cardiology patient and brother. Discharge time 31 minutes. Discharge Information Condition at Discharge: Improved, Stable Disposition/Orders: Other (select) Scheduled Alendronate Sodium (Alendronate Sodium), 70 MG PO WEEKLY, (Reported) Amlodipine Besylate (Amlodipine Besylate), 10 MG PO DAILY, (Reported) Aspirin (Aspirin), 1 TAB PO DAILY, (Reported) Atorvastatin Calcium (Atorvastatin Calcium), 1 TAB PO DAILY, (Reported) Azathioprine (Azathioprine), 4 TAB PO DAILY, (Reported) Cephalexin (Keflex), 500 MG PO QID Famotidine (Pepcid Ac), 20 MG PO HS, (Reported) Ferrous Sulfate (Ferrous Sulfate), 1 TAB PO BIDAC, (Reported) Hydrochlorothiazide (Hydrochlorothiazide Tablet ), 25 MG PO DAILY, (Reported) Insulin Aspart (Novolog Flexpen), 10 UNIT SQ AC breakfast, (Reported) Insulin Aspart (Novolog Flexpen), 18 UNIT SQ AC lunch, (Reported) Insulin Aspart (Novolog Flexpen), 22 UNIT SQ AC supper, (Reported) Insulin Glargine,Hum.rec.anlog (Lantus), 70 UNIT SQ QHS, (Reported) Levothyroxine Sodium (Levothyroxine Sodium), 1 TAB PO DAILY, (Reported) Loratadine (Loratadine), 1 TAB PO DAILY, (Reported) Metoprolol Tartrate (Metoprolol Tartrate), 3 TAB PO BID, (Reported) Nystatin/Triamcin (Nystatin-Triamcinolone Cream), 1 FARHANA TP BID, (Reported) Pantoprazole Sodium (Pantoprazole Sodium), 1 TAB PO DAILY, (Reported) Prednisone (Prednisone), 5 MG PO DAILY, (Reported) Tacrolimus (Tacrolimus), 1 MG PO BID, (Reported) Tacrolimus (Tacrolimus), 0.5 MG PO DAILY, (Reported) Scheduled PRN Acetaminophen (Tylenol), 1 TAB PO PRN Q6HRS PRN for PAIN, (Reported) Docusate Sodium (Docusate Sodium), 1 CAP PO TID PRN PRN for CONSTIPATION, ( Reported) Haloperidol (Haloperidol), 0.25 MG PO PRN Q8HRS PRN for ANXIETY / AGITATION, ( Reported) Ondansetron Hcl (Ondansetron Hcl), 1 TAB PO PRN Q8HRS PRN for NAUSEA/VOMITING, ( Reported) Miscellaneous Medications Folic Acid/Multivit-Minerals (Men's Multivitamin Gummies), 200 MCG PO, (Reported ) Thiamine Hcl (Thiamine Hcl), 100 MG PO, (Reported) GELA RODRIGUEZ MD Jul 03, 2017 12:44
--- NOTE | 2017-07-03 12:57 | PDOC ---
Provider Note Provider Note Subjective: Mr. Díaz is a 72 y/o male who originally presented to the ER after being [facility]. He was admitted to the ICU , and then transferred to the floor 2 days ago. Today, he reports that his breathing continues to improve. He denies any chest pain, nausea, or vomiting, but notes that his last BM was 2 days ago while in the ICU; unknown if there was any blood in his stool or not at that time. Objective: I/O: 2.3 L positive Vitals: P: 77, T: 97.6, BP: 167/72, O2: 100% on 2L NC Gen: Resting comfortably in hospital bed in no acute distress HEENT: No scleral icterus, no conjunctival injection. L nasal labial fold with hole. Neck: trachea midline, JVD difficulty to asses due to body habitus Heart: regular rhythm with a rate of 77 Lungs: Diminished breath sounds, but clear to auscultation b/l Abd: obese, non-tender, no ecchymosis Extremities/Skin: Left leg above the knee amputation, right leg edematous with chronic venous stasis changes and lymphedema. Meds: Atorvastatin 10mg daily Lasix 40mg p.o daily Dopamine/Dobutamine gtts Metoprolol 50mg bid Imdur 30mg daily ASA 81mg daily Assessment: 1. Acute on chronic diastolic heart failure. 2. Anemia secondary to chronic disease. 3. CKD - s/p renal transplant current cr 2.1. 4. HTN - Currently on vasopressor therapy. 5. HLD 6. Pleural effusion s/p chest tube. 7. Persistent afib - not on anticoagulation due to #2 and pt. refusal. Plan: -Diuresise per nephrology service but based on examination, he has significant anasarca, which may be related to hypoalbuminemia versus true volume overload. - Monitor Hgb - 7.3 today, likely due to CKD. - continue metoprolol 50 mg BID, stop dobutamine and dopamine as patient has been hypertensive today -Continue atorvastatin 10 mg MARY ARNOLD MD Jul 03, 2017 12:57
--- NOTE | 2017-07-03 13:02 | PDOC ---
PULMONARY PROGRESS NOTES Subjective EXTUBATED 06/25 NOW ON N/C Vitals Vital Signs Date Time Temp Pulse Resp B/P (MAP) Pulse Ox O2 Delivery O2 Flow Rate FiO2 07/03/17 11:13 86 170/72 07/03/17 11:00 97.6 20 100 Nasal Cannula 2.0 97.6 ROS: No Chest Pain, No Abdominal Pain, No Increase Cough General: Alert, No acute distress Lungs: Clear Cardiovascular: S1, S2 Abdomen: Soft, Other (obese) Neuro Exam: Alert Extremities: Other (right lymphedema, left BKA) Skin: Warm Labs Laboratory Tests Test 07/01/17 16:49 07/01/17 21:18 07/02/17 03:40 07/02/17 08:51 O2 Saturation 97 % (92-99) Arterial Blood pH 7.41 (7.35-7.45) Arterial Blood pCO2 at Patient Temp 48 mmHg (35-46) Arterial Blood pO2 at Patient Temp 99 mmHg (65-108) Arterial Blood HCO3 29 mmol/L (21-28) Arterial Blood Base Excess 4 mmol/L (-3-3) FiO2 28 Glucose (Fingerstick) 210 mg/dL (70-99) 43 mg/dL (70-99) White Blood Count 6.7 x10^3/uL (4.0-11.0) Red Blood Count 2.19 x10^6/uL (4.30-5.70) Hemoglobin 6.9 g/dL (13.0-17.5) Hematocrit 21.4 % (39.0-53.0) Mean Corpuscular Volume 98 fL (79-100) Mean Corpuscular Hemoglobin 32 pg (25-35) Mean Corpuscular Hemoglobin Concent 32 g/dL (31-37) Red Cell Distribution Width 20.1 % (11.5-14.5) Platelet Count 240 x10^3/uL (140-400) Neutrophils (%) (Auto) 77 % (31-73) Lymphocytes (%) (Auto) 12 % (24-48) Monocytes (%) (Auto) 9 % (0-9) Eosinophils (%) (Auto) 1 % (0-3) Basophils (%) (Auto) 1 % (0-3) Neutrophils # (Auto) 5.1 x10^3uL (1.8-7.7) Lymphocytes # (Auto) 0.8 x10^3/uL (1.0-4.8) Monocytes # (Auto) 0.6 x10^3/uL (0.0-1.1) Eosinophils # (Auto) 0.1 x10^3/uL (0.0-0.7) Basophils # (Auto) 0.0 x10^3/uL (0.0-0.2) Sodium Level 149 mmol/L (136-145) Potassium Level 3.5 mmol/L (3.5-5.1) Chloride Level 110 mmol/L (98-107) Carbon Dioxide Level 31 mmol/L (21-32) Anion Gap 8 (6-14) Blood Urea Nitrogen 55 mg/dL (8-26) Creatinine 2.3 mg/dL (0.7-1.3) Estimated GFR (Cockcroft-Gault) 27.9 Glucose Level 90 mg/dL (70-99) Calcium Level 8.1 mg/dL (8.5-10.1) Magnesium Level 1.5 mg/dL (1.8-2.4) Test 07/02/17 09:23 07/02/17 09:35 07/02/17 10:39 07/02/17 11:50 Glucose (Fingerstick) 71 mg/dL (70-99) 74 mg/dL (70-99) 97 mg/dL (70-99) 97 mg/dL (70-99) Test 07/02/17 17:10 07/02/17 17:44 07/02/17 20:27 07/02/17 23:47 Hemoglobin 7.7 g/dL (13.0-17.5) Hematocrit 23.6 % (39.0-53.0) Mean Corpuscular Hemoglobin Concent 33 g/dL (31-37) Glucose (Fingerstick) 199 mg/dL (70-99) 242 mg/dL (70-99) 176 mg/dL (70-99) Test 07/03/17 06:30 07/03/17 07:39 07/03/17 10:17 White Blood Count 6.5 x10^3/uL (4.0-11.0) Red Blood Count 2.36 x10^6/uL (4.30-5.70) Hemoglobin 7.3 g/dL (13.0-17.5) Hematocrit 22.6 % (39.0-53.0) Mean Corpuscular Volume 96 fL (79-100) Mean Corpuscular Hemoglobin 31 pg (25-35) Mean Corpuscular Hemoglobin Concent 32 g/dL (31-37) Red Cell Distribution Width 20.0 % (11.5-14.5) Platelet Count 244 x10^3/uL (140-400) Neutrophils (%) (Auto) 83 % (31-73) Lymphocytes (%) (Auto) 9 % (24-48) Monocytes (%) (Auto) 7 % (0-9) Eosinophils (%) (Auto) 1 % (0-3) Basophils (%) (Auto) 1 % (0-3) Neutrophils # (Auto) 5.4 x10^3uL (1.8-7.7) Lymphocytes # (Auto) 0.6 x10^3/uL (1.0-4.8) Monocytes # (Auto) 0.4 x10^3/uL (0.0-1.1) Eosinophils # (Auto) 0.0 x10^3/uL (0.0-0.7) Basophils # (Auto) 0.0 x10^3/uL (0.0-0.2) Sodium Level 146 mmol/L (136-145) Potassium Level 3.9 mmol/L (3.5-5.1) Chloride Level 107 mmol/L (98-107) Carbon Dioxide Level 32 mmol/L (21-32) Anion Gap 7 (6-14) Blood Urea Nitrogen 52 mg/dL (8-26) Creatinine 2.1 mg/dL (0.7-1.3) Estimated GFR (Cockcroft-Gault) 31.0 Glucose Level 118 mg/dL (70-99) Calcium Level 8.2 mg/dL (8.5-10.1) Glucose (Fingerstick) 106 mg/dL (70-99) 124 mg/dL (70-99) Laboratory Tests Test 07/02/17 17:10 07/02/17 17:44 07/02/17 20:27 07/02/17 23:47 Hemoglobin 7.7 g/dL (13.0-17.5) Hematocrit 23.6 % (39.0-53.0) Mean Corpuscular Hemoglobin Concent 33 g/dL (31-37) Glucose (Fingerstick) 199 mg/dL (70-99) 242 mg/dL (70-99) 176 mg/dL (70-99) Test 07/03/17 06:30 07/03/17 07:39 07/03/17 10:17 White Blood Count 6.5 x10^3/uL (4.0-11.0) Red Blood Count 2.36 x10^6/uL (4.30-5.70) Hemoglobin 7.3 g/dL (13.0-17.5) Hematocrit 22.6 % (39.0-53.0) Mean Corpuscular Volume 96 fL (79-100) Mean Corpuscular Hemoglobin 31 pg (25-35) Mean Corpuscular Hemoglobin Concent 32 g/dL (31-37) Red Cell Distribution Width 20.0 % (11.5-14.5) Platelet Count 244 x10^3/uL (140-400) Neutrophils (%) (Auto) 83 % (31-73) Lymphocytes (%) (Auto) 9 % (24-48) Monocytes (%) (Auto) 7 % (0-9) Eosinophils (%) (Auto) 1 % (0-3) Basophils (%) (Auto) 1 % (0-3) Neutrophils # (Auto) 5.4 x10^3uL (1.8-7.7) Lymphocytes # (Auto) 0.6 x10^3/uL (1.0-4.8) Monocytes # (Auto) 0.4 x10^3/uL (0.0-1.1) Eosinophils # (Auto) 0.0 x10^3/uL (0.0-0.7) Basophils # (Auto) 0.0 x10^3/uL (0.0-0.2) Sodium Level 146 mmol/L (136-145) Potassium Level 3.9 mmol/L (3.5-5.1) Chloride Level 107 mmol/L (98-107) Carbon Dioxide Level 32 mmol/L (21-32) Anion Gap 7 (6-14) Blood Urea Nitrogen 52 mg/dL (8-26) Creatinine 2.1 mg/dL (0.7-1.3) Estimated GFR (Cockcroft-Gault) 31.0 Glucose Level 118 mg/dL (70-99) Calcium Level 8.2 mg/dL (8.5-10.1) Glucose (Fingerstick) 106 mg/dL (70-99) 124 mg/dL (70-99) Medications Active Scripts Medications Dose Route/Sig Max Daily Dose Days Date Category Amlodipine Besylate 5 Mg Tablet 10 Mg PO DAILY 06/22/17 Reported Azathioprine 50 Mg Tablet 4 Tab PO DAILY 06/22/17 Reported Docusate Sodium 100 Mg Capsule 1 Cap PO TID PRN PRN 06/22/17 Reported Ferrous Sulfate 325 Mg Tablet 1 Tab PO BIDAC 06/22/17 Reported Ondansetron Hcl 4 Mg Tablet 1 Tab PO PRN Q8HRS PRN 06/22/17 Reported Prednisone 10 Mg Tablet 5 Mg PO DAILY 06/22/17 Reported Thiamine Hcl 100 Mg Tablet 100 Mg PO 06/22/17 Reported Nystatin-Triamcinolone Cream (Nystatin/Triamcin) 15 Gm Cream..g. 1 Alexis TP BID 06/22/17 Reported Pantoprazole Sodium 40 Mg Tablet.dr 1 Tab PO DAILY 06/22/17 Reported Tacrolimus 0.5 Mg Capsule 0.5 Mg PO DAILY 06/22/17 Reported Tylenol (Acetaminophen) 325 Mg Tablet 1 Tab PO PRN Q6HRS PRN 06/22/17 Reported Haloperidol 0.5 Mg Tablet 0.25 Mg PO PRN Q8HRS PRN 06/22/17 Reported Metoprolol Tartrate 50 Mg Tablet 3 Tab PO BID 06/22/17 Reported Keflex (Cephalexin) 500 Mg Capsule 500 Mg PO QID 5 06/30/15 Rx Novolog Flexpen (Insulin Aspart) 100 Unit/1 Ml Insuln.pen 22 Unit SQ AC SUPPER 06/26/15 Reported Novolog Flexpen (Insulin Aspart) 100 Unit/1 Ml Insuln.pen 18 Unit SQ AC LUNCH 06/26/15 Reported Novolog Flexpen (Insulin Aspart) 100 Unit/1 Ml Insuln.pen 10 Unit SQ AC BREAKFAST 06/26/15 Reported Levothyroxine Sodium 88 Mcg Tablet 1 Tab PO DAILY 06/24/15 Reported Atorvastatin Calcium 10 Mg Tablet 1 Tab PO DAILY 06/24/15 Reported Loratadine 10 Mg Tablet 1 Tab PO DAILY 06/24/15 Reported Hydrochlorothiazide Tablet (Hydrochlorothiazide) 25 Mg Tablet 25 Mg PO DAILY 06/24/15 Reported Pepcid Ac (Famotidine) 20 Mg Tablet 20 Mg PO HS 06/24/15 Reported Tacrolimus 1 Mg Capsule 1 Mg PO BID 06/24/15 Reported Men's Multivitamin Gummies (Folic Acid/Multivit-Minerals) 200 Mcg Tab.chew 200 Mcg PO 06/24/15 Reported Aspirin 81 Mg Tab.chew 1 Tab PO DAILY 06/24/15 Reported Lantus (Insulin Glargine,Hum.rec.anlog) 100 Unit/1 Ml Vial 70 Unit SQ QHS 06/24/15 Reported Alendronate Sodium 70 Mg Tablet 70 Mg PO WEEKLY 06/24/15 Reported Comments IMPRESSION: CT 06/28 1. Ongoing moderate sized bilateral pleural effusions with considerable underlying atelectasis, worse in the lower lobes. 2. Moderate bilateral interlobular septal thickening compatible with interstitial pulmonary edema. 3. Extensive calcific plaquing of the aorta and coronary arteries. Impression . 1. Acute hypercapnic respiratory failure secondary to multifactorial in nature 2. Abnormal ct chest with EFFUSIONS S/P CHEST TUBE 3. Renal transplant and acute kidney FAILURE 4. Methicillin-resistant Staphylococcus aureus infection. 5. Hypernatremia 6. Severe protein-calorie malnutrition POA 7. Morbid obesity 8. Suspect BEVERLY/OHS 9. Acute/Chronic Cor Pulmonale 10. Chronic Lower Ext Lymphedema 11. Bilateral effusion Plan . LESS THEN 200 CC DRAINED IN PAST 24 HOURS CHEST TUBE REMOVED FROM RIGHT SIDE CXR STABLE PRN BIPAP DC IV DOP/LASIX/DOBUTAMINE PER CARDS TRANSFER TO [facility] MARKY HUSSEIN MD Jul 03, 2017 13:02
[2017-07-03 15:00] VITALS: BP 144/67
--- NOTE | 2017-07-03 15:57 | PATHOLOGY ---
CYTOPATHOLOGY REPORT CLINICAL HISTORY: AMS, Pleural effusion SPECIMEN(S) RECEIVED: A.Pleural fluid, Right FINAL DIAGNOSIS: Right pleural fluid, ThinPrep and cell block: - No malignant cells identified.No malignant cells identified. - Focally reactive mesothelial cells and scattered chronic inflammatory cells identified. (JPM:rosalia; 07/03/2017) PATHOLOGIST: Davy Sevilla M.D. REPORT ELECTRONICALLY SIGNED BY: Davy Sevilla M.D. DATE/TIME: 07/03/2017 15:57 GROSS PATHOLOGY: A. Pleural fluid, Right: The specimen is submitted fixed, labeled "Jacques Díaz Jr". Received by the Cytology Department is 63 mL of clear yellow fluid. One ThinPrep slide and a formalin fixed cell block were prepared. (mm 07.02.2017) IN CLASSROOM TUTOR(S): KELLI Burnham(ASCP)IAC INITIAL CPT CODE(S): A; 61762, 48615 Professional services performed by [facility] [place] [address] Technical services performed by [facility] at [address] [place] [address], [address], [place] [address]. PATIENT: JACQUES DÍAZ JR /AGE: 11 1945 (Age: 72) SEX: M PATIENT #: [id number] ALT CASE #: SPECIMEN COLLECTION DATE: 06/29/2017 SPECIMEN RECEIVED DATE: 07/02/[address] [facility] [address] [place] [address], [address] [place] [address] PHONE: [phone] DIRECTOR: Jeison Wiseman M.D. * * * END OF REPORT * * *
[2017-07-03 20:31] VITALS: BP 139/54
[2017-07-03] MEDS: FAMOTIDINE 20 MG TABLET. PO SCH (21:00)
[2017-07-03] MEDS: INSULIN DETEMIR 300 UNITS/3 ML INSULN.PEN. SQ SCH (21:26)
[2017-07-03 23:22] VITALS: BP 106/52
[2017-07-04] VITALS (10 sets, daily range): BP systolic 106–187; BP diastolic 49–77
[2017-07-04 05:53] LABS: BASO % 0 % (0-3); EOS % 1 % (0-3); LYMPH # 0.4 x10^3/uL (1.0-4.8); LYMPH % 9 % (24-48); MEAN CORPUSCULAR HEMOGLOBIN 32 pg (25-35); MEAN CORPUSCULAR HGB CONC 33 g/dL (31-37); MEAN CORPUSCULAR VOLUME 97 fL (79-100); MONO % 7 % (0-9); NEUT % 83 % (31-73); PLATELET COUNT 217 x10^3/uL (140-400); RED BLOOD COUNT 2.15 x10^6/uL (4.30-5.70); RED CELL DISTRIBUTION WIDTH 19.6 % (11.5-14.5); WHITE BLOOD COUNT 4.2 x10^3/uL (4.0-11.0)
[2017-07-04 06:04] LABS: CALCIUM 8.3 mg/dL (8.5-10.1); GFR 32.8; POTASSIUM 3.9 mmol/L (3.5-5.1)
[2017-07-04 06:06] LABS: HEMATOCRIT 20.8 % (39.0-53.0); HEMOGLOBIN 6.8 g/dL (13.0-17.5)
[2017-07-04] MEDS: FUROSEMIDE 40 MG TABLET. PO SCH ×2 (09:00→14:54)
[2017-07-04] MEDS: ASPIRIN CHEWABLE 81 MG TABLET. PO SCH (09:00)
[2017-07-04] MEDS: ENOXAPARIN 40 MG/0.4 ML SYRINGE. SQ SCH (09:00)
[2017-07-04] MEDS: ISOSORBIDE MONONITRATE ER 30 MG TAB.ER.24H PO SCH (09:35)
[2017-07-04] MEDS: METOPROLOL TART IMMED RELEASE 50 MG TABLET. PO SCH ×2 (09:36→20:59)
--- NOTE | 2017-07-04 09:42 | RAD ---
Portable chest, 07/04/2017: History: Effusion Comparison is made to yesterday's exam. The right jugular central venous catheter is unchanged in position. The heart is enlarged. There is extensive calcific plaquing of the aorta. There is a moderate ongoing left basilar opacity compatible with pleural fluid and underlying atelectasis/infiltrate. No significant right lung infiltrate or definite pleural fluid is seen. No new abnormality is detected. IMPRESSION: No significant change since yesterday's study.
--- NOTE | 2017-07-04 09:53 | PDOC ---
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 METS LE LYMPHEDEMA S/P LEFT BKA EARLIER THIS YEAR SEVERE DECONDITIONING CHRONIC IMMUNOSUPPRESSION MILD HYPOKALEMIA-WILL STOP LASIX History of Present Illness History of Present Illness Called by RN earlier today as hemoglobin is 6.7. No melena. Patient has been in and out of hospitals and's SNU for the past 6 months. I did order one pack RBC to transfuse and his currently getting that. Clarifies that he only takes Prograf 0.5 by mouth daily as opposed to 1 mg twice a day otherwise he swells up and seeps of fluid from his arms. Patient is third spacing. We did stop Dobu and dopamine drip EF is 55% blood pressure was 190 systolic, discussed with cardiology. We'll also stop ProcalAmine. Accepted at [facility]. Awaiting for special boot/unix systems administrator from [employer] Plan: KARINE Ralph DC PICC line Answer to [facility] today Boot to up by from [facility], Discussed with GEORGE Moreno Vitals Vitals Vital Signs Date Time Temp Pulse Resp B/P (MAP) Pulse Ox O2 Delivery O2 Flow Rate FiO2 07/04/17 09:36 75 184/59 07/04/17 09:24 97.5 20 97.5 07/04/17 07:00 99 Nasal Cannula 2.0 Physical Exam Physical Exam General: Alert, Oriented X3, Other (Asleep) Heart: Other (AFIB rate controlled; distant heart sounds) Lungs: Clear Abdomen: Soft, Other (obese) Extremities: No clubbing, No cyanosis Skin: No rashes, Other (chronic venous stasis changes) Labs LABS Laboratory Tests Test 07/03/17 10:17 07/03/17 16:34 07/03/17 21:00 07/04/17 05:00 Glucose (Fingerstick) 124 mg/dL (70-99) 141 mg/dL (70-99) 179 mg/dL (70-99) White Blood Count 4.2 x10^3/uL (4.0-11.0) Red Blood Count 2.15 x10^6/uL (4.30-5.70) Hemoglobin 6.8 g/dL (13.0-17.5) Hematocrit 20.8 % (39.0-53.0) Mean Corpuscular Volume 97 fL (79-100) Mean Corpuscular Hemoglobin 32 pg (25-35) Mean Corpuscular Hemoglobin Concent 33 g/dL (31-37) Red Cell Distribution Width 19.6 % (11.5-14.5) Platelet Count 217 x10^3/uL (140-400) Neutrophils (%) (Auto) 83 % (31-73) Lymphocytes (%) (Auto) 9 % (24-48) Monocytes (%) (Auto) 7 % (0-9) Eosinophils (%) (Auto) 1 % (0-3) Basophils (%) (Auto) 0 % (0-3) Neutrophils # (Auto) 3.5 x10^3uL (1.8-7.7) Lymphocytes # (Auto) 0.4 x10^3/uL (1.0-4.8) Monocytes # (Auto) 0.3 x10^3/uL (0.0-1.1) Eosinophils # (Auto) 0.0 x10^3/uL (0.0-0.7) Basophils # (Auto) 0.0 x10^3/uL (0.0-0.2) Sodium Level 144 mmol/L (136-145) Potassium Level 3.9 mmol/L (3.5-5.1) Chloride Level 107 mmol/L (98-107) Carbon Dioxide Level 32 mmol/L (21-32) Anion Gap 5 (6-14) Blood Urea Nitrogen 49 mg/dL (8-26) Creatinine 2.0 mg/dL (0.7-1.3) Estimated GFR (Cockcroft-Gault) 32.8 Glucose Level 76 mg/dL (70-99) Calcium Level 8.3 mg/dL (8.5-10.1) Test 07/04/17 07:32 Glucose (Fingerstick) 57 mg/dL (70-99) Review of Systems Review of Systems A 14 point ROS was completed with the following noted as positive: Other systems reviewed and negative. \CONSTITUTIONAL: No fever or chills EYES: No recent changes SKIN: No rash or itching CARDIOVASCULAR: No chest pain, syncope, palpitations, or edema RESPIRATORY: No SOB or cough GASTROINTESTINAL: No nausea, vomiting or abdominal pain NEUROLOGICAL: No headaches or weakness ENDOCRINE: No cold or heat intolerance GENITOURINARY: No urgency or frequency of urination MUSCULOSKELETAL: No back pain or joint pain LYMPHATICS: No enlarged lymph nodes PSYCHIATRIC: No anxiety or depression Assessment and Plan Assessmemt and Plan Problems Medical Problems: (1) Acute encephalopathy Status: Acute (2) Pulmonary edema Status: Acute (3) Respiratory acidosis Status: Acute Problems: Comment Review of Relevant I have reviewed the following items buzz (where applicable) has been applied. Labs Laboratory Tests Test 07/02/17 10:39 07/02/17 11:50 07/02/17 17:10 07/02/17 17:44 Glucose (Fingerstick) 97 mg/dL (70-99) 97 mg/dL (70-99) 199 mg/dL (70-99) Hemoglobin 7.7 g/dL (13.0-17.5) Hematocrit 23.6 % (39.0-53.0) Mean Corpuscular Hemoglobin Concent 33 g/dL (31-37) Test 07/02/17 20:27 07/02/17 23:47 07/03/17 06:30 07/03/17 07:39 Glucose (Fingerstick) 242 mg/dL (70-99) 176 mg/dL (70-99) 106 mg/dL (70-99) White Blood Count 6.5 x10^3/uL (4.0-11.0) Red Blood Count 2.36 x10^6/uL (4.30-5.70) Hemoglobin 7.3 g/dL (13.0-17.5) Hematocrit 22.6 % (39.0-53.0) Mean Corpuscular Volume 96 fL (79-100) Mean Corpuscular Hemoglobin 31 pg (25-35) Mean Corpuscular Hemoglobin Concent 32 g/dL (31-37) Red Cell Distribution Width 20.0 % (11.5-14.5) Platelet Count 244 x10^3/uL (140-400) Neutrophils (%) (Auto) 83 % (31-73) Lymphocytes (%) (Auto) 9 % (24-48) Monocytes (%) (Auto) 7 % (0-9) Eosinophils (%) (Auto) 1 % (0-3) Basophils (%) (Auto) 1 % (0-3) Neutrophils # (Auto) 5.4 x10^3uL (1.8-7.7) Lymphocytes # (Auto) 0.6 x10^3/uL (1.0-4.8) Monocytes # (Auto) 0.4 x10^3/uL (0.0-1.1) Eosinophils # (Auto) 0.0 x10^3/uL (0.0-0.7) Basophils # (Auto) 0.0 x10^3/uL (0.0-0.2) Sodium Level 146 mmol/L (136-145) Potassium Level 3.9 mmol/L (3.5-5.1) Chloride Level 107 mmol/L (98-107) Carbon Dioxide Level 32 mmol/L (21-32) Anion Gap 7 (6-14) Blood Urea Nitrogen 52 mg/dL (8-26) Creatinine 2.1 mg/dL (0.7-1.3) Estimated GFR (Cockcroft-Gault) 31.0 Glucose Level 118 mg/dL (70-99) Calcium Level 8.2 mg/dL (8.5-10.1) Test 07/03/17 10:17 07/03/17 16:34 07/03/17 21:00 07/04/17 05:00 Glucose (Fingerstick) 124 mg/dL (70-99) 141 mg/dL (70-99) 179 mg/dL (70-99) White Blood Count 4.2 x10^3/uL (4.0-11.0) Red Blood Count 2.15 x10^6/uL (4.30-5.70) Hemoglobin 6.8 g/dL (13.0-17.5) Hematocrit 20.8 % (39.0-53.0) Mean Corpuscular Volume 97 fL (79-100) Mean Corpuscular Hemoglobin 32 pg (25-35) Mean Corpuscular Hemoglobin Concent 33 g/dL (31-37) Red Cell Distribution Width 19.6 % (11.5-14.5) Platelet Count 217 x10^3/uL (140-400) Neutrophils (%) (Auto) 83 % (31-73) Lymphocytes (%) (Auto) 9 % (24-48) Monocytes (%) (Auto) 7 % (0-9) Eosinophils (%) (Auto) 1 % (0-3) Basophils (%) (Auto) 0 % (0-3) Neutrophils # (Auto) 3.5 x10^3uL (1.8-7.7) Lymphocytes # (Auto) 0.4 x10^3/uL (1.0-4.8) Monocytes # (Auto) 0.3 x10^3/uL (0.0-1.1) Eosinophils # (Auto) 0.0 x10^3/uL (0.0-0.7) Basophils # (Auto) 0.0 x10^3/uL (0.0-0.2) Sodium Level 144 mmol/L (136-145) Potassium Level 3.9 mmol/L (3.5-5.1) Chloride Level 107 mmol/L (98-107) Carbon Dioxide Level 32 mmol/L (21-32) Anion Gap 5 (6-14) Blood Urea Nitrogen 49 mg/dL (8-26) Creatinine 2.0 mg/dL (0.7-1.3) Estimated GFR (Cockcroft-Gault) 32.8 Glucose Level 76 mg/dL (70-99) Calcium Level 8.3 mg/dL (8.5-10.1) Test 07/04/17 07:32 Glucose (Fingerstick) 57 mg/dL (70-99) Laboratory Tests Test 07/03/17 10:17 07/03/17 16:34 07/03/17 21:00 07/04/17 05:00 Glucose (Fingerstick) 124 mg/dL (70-99) 141 mg/dL (70-99) 179 mg/dL (70-99) White Blood Count 4.2 x10^3/uL (4.0-11.0) Red Blood Count 2.15 x10^6/uL (4.30-5.70) Hemoglobin 6.8 g/dL (13.0-17.5) Hematocrit 20.8 % (39.0-53.0) Mean Corpuscular Volume 97 fL (79-100) Mean Corpuscular Hemoglobin 32 pg (25-35) Mean Corpuscular Hemoglobin Concent 33 g/dL (31-37) Red Cell Distribution Width 19.6 % (11.5-14.5) Platelet Count 217 x10^3/uL (140-400) Neutrophils (%) (Auto) 83 % (31-73) Lymphocytes (%) (Auto) 9 % (24-48) Monocytes (%) (Auto) 7 % (0-9) Eosinophils (%) (Auto) 1 % (0-3) Basophils (%) (Auto) 0 % (0-3) Neutrophils # (Auto) 3.5 x10^3uL (1.8-7.7) Lymphocytes # (Auto) 0.4 x10^3/uL (1.0-4.8) Monocytes # (Auto) 0.3 x10^3/uL (0.0-1.1) Eosinophils # (Auto) 0.0 x10^3/uL (0.0-0.7) Basophils # (Auto) 0.0 x10^3/uL (0.0-0.2) Sodium Level 144 mmol/L (136-145) Potassium Level 3.9 mmol/L (3.5-5.1) Chloride Level 107 mmol/L (98-107) Carbon Dioxide Level 32 mmol/L (21-32) Anion Gap 5 (6-14) Blood Urea Nitrogen 49 mg/dL (8-26) Creatinine 2.0 mg/dL (0.7-1.3) Estimated GFR (Cockcroft-Gault) 32.8 Glucose Level 76 mg/dL (70-99) Calcium Level 8.3 mg/dL (8.5-10.1) Test 07/04/17 07:32 Glucose (Fingerstick) 57 mg/dL (70-99) Microbiology 06/29/17 Gram Stain - Final, Complete Medications Current Medications Etomidate (Amidate) 20 mg STK-MED ONCE IV ; Start 06/22/17 at 05:47; Stop at 05:48; Status DC Rocuronium [place] (Zemuron) 50 mg STK-MED ONCE .ROUTE ; Start 06/22/17 at 05:48 ; Stop 06/22/17 at 05:49; Status DC Propofol 50 ml @ As Directed STK-MED ONCE IV ; Start 06/22/17 at 06:15; Stop at 06:16; Status DC Propofol 100 ml @ 0 mls/hr CONT PRN IV SEE I/O RECORD Last administered on 06/25 03:20; Start 06/22/17 at 06:30; Stop 07/01/17 at 20:35; Status DC Ondansetron HCl (Zofran) 4 mg PRN Q8HRS PRN IV NAUSEA/VOMITING; Start 06/22/17 at 06:45; Stop 06/23/17 at 06:44; Status DC Fentanyl Citrate (Fentanyl 2ml Vial) 50 mcg PRN Q1HR PRN IV PAIN Last administered on 06/22/17 07:04; Start 06/22/17 at 06:45; Stop 06/23/17 at 06:44 ; Status DC Sodium Chloride 1,000 ml @ 75 mls/hr [id number] IV ; Start 06/22/17 at 06:45; Stop 06/22/17 at 19:47; Status DC Acetaminophen (Tylenol) 650 mg PRN Q4HRS PRN PO FEVER; Start 06/22/17 at 06:45 ; Stop 06/23/17 at 06:44; Status DC Midazolam HCl (Versed) 2 mg STK-MED ONCE .ROUTE ; Start 06/22/17 at 07:17; Stop 06/22/17 at 07:18; Status DC Midazolam HCl 100 ml @ 0 mls/hr CONT PRN IV SEE I/O RECORD Last administered on 06/22/17 23:38; Start 06/22/17 at 07:30; Stop 07/01/17 at 20:34; Status DC Midazolam HCl (Versed) 2 mg 1X ONCE IV Last administered on 06/22/17 07:30; Start 06/22/17 at 07:30; Stop 06/22/17 at 07:31; Status DC Norepinephrine Bitartrate 250 ml @ As Directed STK-MED ONCE IV ; Start at 08:27; Stop 06/22/17 at 08:28; Status DC Norepinephrine Bitartrate 250 ml @ 0 mls/hr CONT PRN IV SEE I/O RECORD Last administered on 06/22/17 13:02; Start 06/22/17 at 08:30; Stop 07/01/17 at 20: 33; Status DC Sodium Chloride 1,000 ml @ 125 mls/hr Q8H IV Last administered on 06/23/17 08 :21; Start 06/22/17 at 11:00; Stop 06/23/17 at 14:28; Status DC Sodium Chloride 1,000 ml @ 999 mls/hr 1X ONCE IV Last administered on 14:32; Start 06/22/17 at 10:45; Stop 06/22/17 at 11:45; Status DC Vancomycin HCl (Vanco Per Pharmacy) 1 each PRN DAILY PRN MC SEE COMMENTS Last administered on 06/26/17 15:34; Start 06/22/17 at 11:00; Stop 06/27/17 at 14:42 ; Status DC Piperacillin Sod/ Tazobactam Sod (Zosyn Per Pharmacy) 1 each PRN DAILY PRN MC SEE COMMENTS; Start 06/22/17 at 11:00; Stop 06/26/17 at 08:38; Status DC Aspirin (Children'S Aspirin) 81 mg DAILY PO Last administered on 07/03/17 08: 50; Start 06/22/17 at 12:00 Atorvastatin Calcium (Lipitor) 10 mg DAILY PO Last administered on 07/02/17 08:50; Start 06/22/17 at 12:00; Stop 07/03/17 at 09:07; Status DC Azathioprine (Imuran) 50 mg DAILY PO Last administered on 07/03/17 08:49; Start 06/22/17 at 12:00 Famotidine (Pepcid) 20 mg HS PO Last administered on 07/02/17 20:30; Start 06/22/17 at 21:00 Levothyroxine Sodium (Synthroid) 88 mcg DAILYAC PO Last administered on 07:02; Start 06/22/17 at 12:00 Prednisone (Prednisone) 20 mg DAILY PO Last administered on 07/03/17 08:50; Start 06/22/17 at 12:00 Insulin Detemir (Levemir) 70 units QHS SQ ; Start 06/22/17 at 21:00; Stop at 21:10; Status DC Cetirizine HCl (ZyrTEC) 10 mg DAILY PO Last administered on 07/03/17 08:53; Start 06/22/17 at 12:00 Metoprolol Tartrate (Lopressor) 100 mg BID PO ; Start 06/22/17 at 12:00; Stop 06/22/17 at 18:33; Status DC Tacrolimus (Prograf) 1 mg BID PO Last administered on 07/03/17 08:49; Start 06/22/17 at 12:00; Stop 07/03/17 at 22:20; Status DC Vancomycin HCl 2 gm/Dextrose/ Sodium Chloride 500 ml @ 250 mls/hr 1X ONCE IV Last administered on 06/22/17 13:04; Start 06/22/17 at 11:30; Stop 06/22/17 at 13:29; Status DC Piperacillin Sod/ Tazobactam Sod (Zosyn) 4.5 gm Q6HRS IVP Last administered on 06/27/17 05:51; Start 06/22/17 at 12:00; Stop 06/27/17 at 14:37; Status DC Vancomycin HCl 2 gm/Dextrose/ Sodium Chloride 500 ml @ 250 mls/hr Q24H IV ; Start 06/23/17 at 13:00; Stop 06/23/17 at 13:00; Status DC Vancomycin HCl 1 each 1X ONCE MC Last administered on 06/24/17 12:30; Start 06/24/17 at 12:30; Stop 06/24/17 at 12:31; Status DC Metoprolol Tartrate (Lopressor) 50 mg BID PO Last administered on 07/04/17 09 :36; Start 06/22/17 at 21:00 Albumin Human 200 ml @ 100 mls/hr TID IV Last administered on 06/22/17 20:44 ; Start 06/22/17 at 21:00; Stop 06/23/17 at 02:42; Status DC Insulin Detemir (Levemir) 70 units QHS SQ Last administered on 06/24/17 21:53 ; Start 06/23/17 at 21:00; Stop 06/25/17 at 10:40; Status DC Insulin Detemir (Levemir) 30 units 1X ONCE SQ Last administered on 06/22/17 21:18; Start 06/22/17 at 21:15; Stop 06/22/17 at 21:16; Status DC Albumin Human 200 ml @ 100 mls/hr TID IV ; Start 06/23/17 at 03:00; Stop at 03:00; Status DC Albumin Human 200 ml @ 100 mls/hr Q6HRS IV Last administered on 06/24/17 05: 47; Start 06/23/17 at 06:00; Stop 06/24/17 at 07:59; Status DC Vancomycin HCl 2 gm/Dextrose/ Sodium Chloride 500 ml @ 250 mls/hr Q24H IV Last administered on 06/24/17 14:43; Start 06/23/17 at 13:00; Stop 06/25/17 at 08:36; Status DC Magnesium Sulfate/ Dextrose 50 ml @ 25 mls/hr PRN DAILY PRN IV for Mag < 1.7 on am labs Last administered on 06/25/17 10:43; Start 06/23/17 at 14:30; Stop 07/03/17 at 12:42; Status DC Fentanyl Citrate (Fentanyl 2ml Vial) 25 mcg PRN Q4HRS PRN IV PAIN Last administered on 07/01/17 03:20; Start 06/23/17 at 15:45 Magnesium Sulfate/ Dextrose 50 ml @ 25 mls/hr 1X ONCE IV Last administered on 06/24/17 06:32; Start 06/24/17 at 06:30; Stop 06/24/17 at 08:29; Status DC Potassium Phosphate 13.6 mmol/Sodium Chloride 104.5333 ml @ 52.267 m... Q2H IV Last administered on 06/24/17 18:07; Start 06/24/17 at 11:00; Stop 06/24/17 at 16:59; Status DC Furosemide (Lasix) 20 mg 1X ONCE IVP Last administered on 06/24/17 12:59; Start 06/24/17 at 11:15; Stop 06/24/17 at 11:16; Status DC Dextrose (Dextrose 50%-Water Syringe) 25 gm STK-MED ONCE IV ; Start 06/25/17 at 05:58; Stop 06/25/17 at 05:59; Status DC Dextrose (Dextrose 50%-Water Syringe) 12.5 gm PRN Q15MIN PRN IV SEE COMMENTS Last administered on 07/02/17 08:55; Start 06/25/17 at 06:15 Chlorhexidine Gluconate (Peridex) 15 ml BID SWSP ; Start 06/25/17 at 21:00; Stop 06/26/17 at 08:42; Status DC Vancomycin HCl 2 gm/Dextrose/ Sodium Chloride 500 ml @ 250 mls/hr Q48H IV Last administered on 06/26/17 13:17; Start 06/26/17 at 13:00; Stop 06/27/17 at 14:37; Status DC Insulin Detemir (Levemir) 55 units QHS SQ Last administered on 06/29/17 20:58 ; Start 06/25/17 at 21:00; Stop 06/30/17 at 20:48; Status DC Enoxaparin Sodium (Lovenox 40mg Syringe) 40 mg BID SQ Last administered on 06/28 09:33; Start 06/25/17 at 12:00; Stop 06/28/17 at 10:04; Status DC Nystatin (Nystop) 1 alexis BID TP Last administered on 07/03/17 08:58; Start at 21:00 Isosorbide Mononitrate (Imdur) 30 mg DAILY PO Last administered on 07/04/17 09:35; Start 06/26/17 at 09:00 Amino Acids/ Glycerin/ Electrolytes 1,000 ml @ 80 mls/hr [id number] IV ; Start at 09:15; Stop 06/26/17 at 10:44; Status DC Sodium Chloride 500 ml @ 250 mls/hr 1X ONCE IV Last administered on 23:30; Start 06/26/17 at 23:45; Stop 06/27/17 at 01:44; Status DC Sodium Chloride 250 ml @ 250 mls/hr 1X ONCE IV Last administered on 03:00; Start 06/27/17 at 03:15; Stop 06/27/17 at 04:14; Status DC Sodium Chloride 500 ml @ 500 mls/hr 1X ONCE IV Last administered on 08:00; Start 06/27/17 at 08:00; Stop 06/27/17 at 10:39; Status DC Warfarin Sodium (Coumadin) 8 mg DAILY16 PO ; Start 06/27/17 at 16:00; Status Cancel Hydralazine HCl (Apresoline Inj) 10 mg PRN Q4HRS PRN IVP ELEVATED BP, SEE COMMENTS Last administered on 06/29/17 02:54; Start 06/27/17 at 20:00; Stop at 14:45; Status DC Albumin Human 200 ml @ 100 mls/hr Q6H IV Last administered on 06/28/17 20:35 ; Start 06/28/17 at 09:00; Stop 06/28/17 at 22:59; Status DC Hydralazine HCl (Apresoline Inj) 10 mg PRN Q4HRS PRN IVP ELEVATED BP, SEE COMMENTS Last administered on 07/03/17 11:13; Start 06/28/17 at 09:30 Enoxaparin Sodium (Lovenox 40mg Syringe) 40 mg DAILY SQ Last administered on 09:46; Start 06/29/17 at 09:00 Nitroglycerin/ Dextrose 250 ml @ 0 mls/hr CONT PRN IV SEE I/O RECORD Last administered on 06/28/17 18:17; Start 06/28/17 at 18:00; Stop 07/03/17 at 12: 42; Status DC Dobutamine HCl/ Dextrose 250 ml @ 0 mls/hr CONT PRN IV SEE I/O RECORD Last administered on 07/02/17 03:23; Start 06/29/17 at 13:15; Stop 07/03/17 at 12: 42; Status DC Dopamine HCl/ Dextrose 250 ml @ 16.708 mls/ hr CONT PRN IV SEE I/O RECORD Last administered on 07/02/17 03:24; Start 06/29/17 at 13:15; Stop 07/03/17 at 12:42; Status DC Furosemide 100 mg/ Sodium Chloride 100 ml @ 0 mls/hr CONT PRN IV SEE I/O RECORD Last administered on 07/01/17 05:36; Start 06/29/17 at 14:45; Stop 05/08 at 11:05; Status DC Lidocaine/Sodium Bicarbonate (Buffered Lidocaine 1%) 20 ml STK-MED ONCE IJ ; Start 06/29/17 at 15:20; Stop 06/29/17 at 15:21; Status DC Lidocaine/Sodium Bicarbonate (Buffered Lidocaine 1%) 5 ml 1X ONCE IJ ; Start 06/29/17 at 16:00; Stop 06/29/17 at 16:01; Status DC Darbepoetin Huber (Aranesp) 60 mcg [id number] SQ Last administered on 06/30/17 20 :55; Start 06/30/17 at 21:00 Oxymetazoline HCl (Afrin) 2 spray PRN Q1HR PRN NS Until bleed has stopped Last administered on 06/30/17 18:15; Start 06/30/17 at 18:00 Insulin Detemir (Levemir) 55 units QHS SQ Last administered on 07/03/17 21:26 ; Start 07/01/17 at 21:00 Insulin Detemir (Levemir) 30 units 1X ONCE SQ Last administered on 06/30/17 21:04; Start 06/30/17 at 21:00; Stop 06/30/17 at 21:01; Status DC Ondansetron HCl (Zofran) 4 mg PRN Q6HRS PRN IV NAUSEA/VOMITING Last administered on 07/01/17 08:05; Start 07/01/17 at 08:00 Sodium Chloride 1,000 ml @ 75 mls/hr 1X ONCE IV Last administered on 11:15; Start 07/01/17 at 11:15; Stop 07/02/17 at 00:34; Status DC Silver Nitrate/ Potassium Nitrate 1 each STK-MED ONCE TP ; Start 07/01/17 at 12 :06; Stop 07/01/17 at 12:07; Status DC Amino Acids/ Glycerin/ Electrolytes 1,000 ml @ 75 mls/hr [id number] IV Last administered on 07/03/17 12:36; Start 07/02/17 at 09:00; Stop 07/03/17 at 12 :42; Status DC Acetaminophen (Tylenol) 650 mg 1X PRN PRN PO PRE-TRANSFUSION; Start 07/02/17 at 11:45 Diphenhydramine HCl (Benadryl Oral Elixir) 12.5 mg 1X PRN PRN PO PRE- TRANSFUSION; Start 07/02/17 at 11:45 Diphenhydramine HCl (Benadryl) 25 mg PRN 1X PRN PO PRE-TRANSFUSION Last administered on 07/02/17t 11:53; Start 07/02/17 at 11:45; Stop 07/02/17 at 11 :54; Status DC Atorvastatin Calcium (Lipitor) 10 mg HS PO ; Start 07/03/17 at 21:00 Furosemide (Lasix) 40 mg DAILY PO Last administered on 07/03/17 12:37; Start 07/03/17 at 12:00 Tacrolimus (Prograf) 0.5 mg DAILY PO ; Start 07/04/17 at 09:00 Active Scripts Active Keflex (Cephalexin) 500 Mg Capsule 500 Mg PO QID 5 Days Reported Amlodipine Besylate 5 Mg Tablet 10 Mg PO DAILY Azathioprine 50 Mg Tablet 4 Tab PO DAILY Docusate Sodium 100 Mg Capsule 1 Cap PO TID PRN PRN Ferrous Sulfate 325 Mg Tablet 1 Tab PO BIDAC Ondansetron Hcl 4 Mg Tablet 1 Tab PO PRN Q8HRS PRN Prednisone 10 Mg Tablet 5 Mg PO DAILY Thiamine Hcl 100 Mg Tablet 100 Mg PO Nystatin-Triamcinolone Cream (Nystatin/Triamcin) 15 Gm Cream..g. 1 Alexis TP BID Pantoprazole Sodium 40 Mg Tablet.dr 1 Tab PO DAILY Tacrolimus 0.5 Mg Capsule 0.5 Mg PO DAILY Tylenol (Acetaminophen) 325 Mg Tablet 1 Tab PO PRN Q6HRS PRN Haloperidol 0.5 Mg Tablet 0.25 Mg PO PRN Q8HRS PRN Metoprolol Tartrate 50 Mg Tablet 3 Tab PO BID Novolog Flexpen (Insulin Aspart) 100 Unit/1 Ml Insuln.pen 22 Unit SQ AC SUPPER Novolog Flexpen (Insulin Aspart) 100 Unit/1 Ml Insuln.pen 18 Unit SQ AC LUNCH Novolog Flexpen (Insulin Aspart) 100 Unit/1 Ml Insuln.pen 10 Unit SQ AC BREAKFAST Levothyroxine Sodium 88 Mcg Tablet 1 Tab PO DAILY Atorvastatin Calcium 10 Mg Tablet 1 Tab PO DAILY Loratadine 10 Mg Tablet 1 Tab PO DAILY Hydrochlorothiazide Tablet (Hydrochlorothiazide) 25 Mg Tablet 25 Mg PO DAILY Pepcid Ac (Famotidine) 20 Mg Tablet 20 Mg PO HS Tacrolimus 1 Mg Capsule 1 Mg PO BID Men's Multivitamin Gummies (Folic Acid/Multivit-Minerals) 200 Mcg Tab.chew 200 Mcg PO Aspirin 81 Mg Tab.chew 1 Tab PO DAILY Lantus (Insulin Glargine,Hum.rec.anlog) 100 Unit/1 Ml Vial 70 Unit SQ QHS Alendronate Sodium 70 Mg Tablet 70 Mg PO WEEKLY Vitals/I & O Vital Sign - Last 24 Hours 07/03/17 07/03/17 07/03/17 07/03/17 11:00 11:00 11:00 11:00 Temp 97.6 97.6 Pulse 77 Resp 20 B/P (MAP) 167/72 (103) 170/69 (102) 192/75 (114) 208/81 (123) Pulse Ox 100 O2 Delivery Nasal Cannula O2 Flow Rate 2.0 07/03/17 07/03/17 07/03/17 07/03/17 11:00 11:13 15:00 20:00 Temp 97.6 97.6 Pulse 86 76 Resp 19 B/P (MAP) 205/89 (127) 170/72 144/67 (92) Pulse Ox 100 O2 Delivery Nasal Cannula Nasal Cannula O2 Flow Rate 2.0 2.0 07/03/17 07/03/17 07/03/17 07/04/17 20:31 21:00 23:22 03:40 Temp 98.1 97.9 97.7 98.1 97.9 97.7 Pulse 72 72 71 73 Resp 24 16 16 B/P (MAP) 139/54 (82) 139/54 106/52 (70) 147/49 (81) Pulse Ox 99 95 99 O2 Delivery Nasal Cannula Nasal Cannula Nasal Cannula O2 Flow Rate 2.0 2.0 1.5 07/04/17 07/04/17 07/04/17 07/04/17 07:00 08:46 09:03 09:24 Temp 97.5 97.5 97.7 97.5 97.5 97.5 97.7 97.5 Pulse 75 82 68 75 Resp 20 14 18 20 B/P (MAP) 106/61 (76) 183/70 187/77 184/59 Pulse Ox 99 O2 Delivery Nasal Cannula O2 Flow Rate 2.0 07/04/17 07/04/17 09:35 09:36 Pulse 75 75 B/P (MAP) 184/59 184/59 Intake and Output 07/03/17 07/03/17 07/04/17 15:00 23:00 07:00 Intake Total 2340 ml 1900 ml 310 ml Output Total 1150 ml 900 ml Balance 2340 ml 750 ml -590 ml Nutrition Consultation Dietary Evaluation: Recommendations by RD: Increase Calorie Intake, PPN/TPN Comments: Can d/c PPN when PO intake consistently meeting > 50% est needs Expected Outcomes/Goals: New goal: PO intake meeting > 50% est needs Interpretation of weight loss: >7.5% in 3 months Malnutrition Findings: Food and Nutrition Intake (Mod: <75% est energy req 7days Malnutrition related to morbid: BMI>or equal to 40 Malnutrition related to morbid: Yes Weight Status: Morbidly Obese GELA RODRIGUEZ MD Jul 04, 2017 09:53
--- NOTE | 2017-07-04 11:23 | PDOC ---
Renal-Progress Notes Subjective Notes Notes NONE History of Present Illness Hx of present illness STABLE Vitals Vitals Vital Signs Date Time Temp Pulse Resp B/P (MAP) Pulse Ox O2 Delivery O2 Flow Rate FiO2 07/04/17 09:36 75 184/59 07/04/17 09:24 97.5 20 97.5 07/04/17 07:00 99 Nasal Cannula 2.0 Weight Weight [ ] I.O. Intake and Output Intake and Output 07/04/17 07:00 Intake Total 4550 ml Output Total 2050 ml Balance 2500 ml Intake Oral 2710 ml IV Total 1840 ml Output Urine Total 1950 ml Chest Tube Drainage Total 100 ml Labs Labs Laboratory Tests Test 07/03/17 16:34 07/03/17 21:00 07/04/17 05:00 07/04/17 07:32 Glucose (Fingerstick) 141 mg/dL (70-99) 179 mg/dL (70-99) 57 mg/dL (70-99) White Blood Count 4.2 x10^3/uL (4.0-11.0) Red Blood Count 2.15 x10^6/uL (4.30-5.70) Hemoglobin 6.8 g/dL (13.0-17.5) Hematocrit 20.8 % (39.0-53.0) Mean Corpuscular Volume 97 fL (79-100) Mean Corpuscular Hemoglobin 32 pg (25-35) Mean Corpuscular Hemoglobin Concent 33 g/dL (31-37) Red Cell Distribution Width 19.6 % (11.5-14.5) Platelet Count 217 x10^3/uL (140-400) Neutrophils (%) (Auto) 83 % (31-73) Lymphocytes (%) (Auto) 9 % (24-48) Monocytes (%) (Auto) 7 % (0-9) Eosinophils (%) (Auto) 1 % (0-3) Basophils (%) (Auto) 0 % (0-3) Neutrophils # (Auto) 3.5 x10^3uL (1.8-7.7) Lymphocytes # (Auto) 0.4 x10^3/uL (1.0-4.8) Monocytes # (Auto) 0.3 x10^3/uL (0.0-1.1) Eosinophils # (Auto) 0.0 x10^3/uL (0.0-0.7) Basophils # (Auto) 0.0 x10^3/uL (0.0-0.2) Sodium Level 144 mmol/L (136-145) Potassium Level 3.9 mmol/L (3.5-5.1) Chloride Level 107 mmol/L (98-107) Carbon Dioxide Level 32 mmol/L (21-32) Anion Gap 5 (6-14) Blood Urea Nitrogen 49 mg/dL (8-26) Creatinine 2.0 mg/dL (0.7-1.3) Estimated GFR (Cockcroft-Gault) 32.8 Glucose Level 76 mg/dL (70-99) Calcium Level 8.3 mg/dL (8.5-10.1) Micro Micro Microbiology 06/29/17 Gram Stain - Final, Complete Review of Systems Constitutional: yes: weakness, alert, oriented Ears/Nose/Throat: Yes: no symptom reported Eyes: Yes: no symptom reported Pulmonary: Yes dyspnea Cardiovascular: Yes no symptom reported Gastrointestional: Yes: constipation Genitourinary: Yes: no symptom reported Musculoskeletal: Yes: muscle stiffness Skin: Yes color change Endocrine: Yes: no symptom reported Physical Exam General Appearance: no apparent distress Skin: warm Respiratory: decreased breath sounds Abdomen: soft, bowel sounds present Genitourinary: bladder flat Extremities: pulses present, other (LEFT BKA) Neurology: alert, follow commands Assessment Assessment IMP REJI-ATN-CR OF 2.0 TODAY CKD - CHRONIC ALLOGRAFT NEPHROPATHY WITH CR OF 1.9-2.4 AT BASELINE HX OR RENAL TRANSPLANT 15 YEARS AGO-LIVING RELATED(SON) PLEURAL EFFUSION-S/P RIGHT THORACOSTOMY TUBE-TUBE OUT YESTERDAY DIASTOLIC CHF-IMPROVING ACUTE ON CHRONIC RESP FAILURE-S/P EXTUBATION ANEMIA OF CHRONIC DISEASE CHRONIC AFIB BEVERLY/PULM HTN RENAL MASS WITH ? METS LE LYMPHEDEMA S/P LEFT BKA EARLIER THIS YEAR SEVERE DECONDITIONING CHRONIC IMMUNOSUPPRESSION MILD HYPOKALEMIA-BETTER MILD HYPERNATREMIA PLAN OFF PPN PRBC AGAIN CONT ARANESP CONT PROGRAF AND IMURAN PT NEEDS MORE LASIX BUT SON AND WONT APPROVE MORE THAN 2 TABS VERY DIFFICULT SITUATION. SON STATES IF WE GIVE HIM ANY MORE LASIX AND HIS KIDNEYS FAIL HE WILL FILE A LAWSUIT AND INTENDS OF HAVING HIS FATHERS KIDNEY WORK FOR ANOTHER 10 YEARS PT HAD TX AT [facility] 15 YRS AGO. 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 HOPEFULLY DONNIE CAN DO THIS IN THE BEST INTEREST OF THE PT ALSO NO KNOW REASON FOR RECURRENT ANEMIA SUGGEST GI AND HEME ALEJANDRO TALLEY MD Jul 04, 2017 11:23
[2017-07-04] MEDS: TACROLIMUS 0.5 MG CAPSULE PO SCH (11:53)
[2017-07-04] MEDS: CETIRIZINE HCL 10 MG TABLET. PO SCH (11:53)
[2017-07-04] MEDS: NYSTATIN TOPICAL POWDER 15GM BOTTLE. TP SCH ×2 (11:54→20:59)
[2017-07-04] MEDS: predniSONE 20 MG TABLET PO SCH (11:54)
[2017-07-04] MEDS: LEVOTHYROXINE 88 MCG TABLET PO SCH (11:54)
[2017-07-04] MEDS: azaTHIOprine 50 MG TABLET PO SCH (11:54)
--- NOTE | 2017-07-04 12:09 | PDOC ---
PULMONARY PROGRESS NOTES Subjective EXTUBATED 06/25 NOW ON N/C Vitals Vital Signs Date Time Temp Pulse Resp B/P (MAP) Pulse Ox O2 Delivery O2 Flow Rate FiO2 07/04/17 11:00 97.6 82 20 155/58 (90) 99 Nasal Cannula 2.0 97.6 ROS: No Chest Pain, No Abdominal Pain, No Increase Cough General: Alert, No acute distress Lungs: Clear Cardiovascular: S1, S2 Abdomen: Soft, Other (obese) Neuro Exam: Alert Extremities: Other (right lymphedema, left BKA) Skin: Warm Labs Laboratory Tests Test 07/02/17 17:10 07/02/17 17:44 07/02/17 20:27 07/02/17 23:47 Hemoglobin 7.7 g/dL (13.0-17.5) Hematocrit 23.6 % (39.0-53.0) Mean Corpuscular Hemoglobin Concent 33 g/dL (31-37) Glucose (Fingerstick) 199 mg/dL (70-99) 242 mg/dL (70-99) 176 mg/dL (70-99) Test 07/03/17 06:30 07/03/17 07:39 07/03/17 10:17 07/03/17 16:34 White Blood Count 6.5 x10^3/uL (4.0-11.0) Red Blood Count 2.36 x10^6/uL (4.30-5.70) Hemoglobin 7.3 g/dL (13.0-17.5) Hematocrit 22.6 % (39.0-53.0) Mean Corpuscular Volume 96 fL (79-100) Mean Corpuscular Hemoglobin 31 pg (25-35) Mean Corpuscular Hemoglobin Concent 32 g/dL (31-37) Red Cell Distribution Width 20.0 % (11.5-14.5) Platelet Count 244 x10^3/uL (140-400) Neutrophils (%) (Auto) 83 % (31-73) Lymphocytes (%) (Auto) 9 % (24-48) Monocytes (%) (Auto) 7 % (0-9) Eosinophils (%) (Auto) 1 % (0-3) Basophils (%) (Auto) 1 % (0-3) Neutrophils # (Auto) 5.4 x10^3uL (1.8-7.7) Lymphocytes # (Auto) 0.6 x10^3/uL (1.0-4.8) Monocytes # (Auto) 0.4 x10^3/uL (0.0-1.1) Eosinophils # (Auto) 0.0 x10^3/uL (0.0-0.7) Basophils # (Auto) 0.0 x10^3/uL (0.0-0.2) Sodium Level 146 mmol/L (136-145) Potassium Level 3.9 mmol/L (3.5-5.1) Chloride Level 107 mmol/L (98-107) Carbon Dioxide Level 32 mmol/L (21-32) Anion Gap 7 (6-14) Blood Urea Nitrogen 52 mg/dL (8-26) Creatinine 2.1 mg/dL (0.7-1.3) Estimated GFR (Cockcroft-Gault) 31.0 Glucose Level 118 mg/dL (70-99) Calcium Level 8.2 mg/dL (8.5-10.1) Glucose (Fingerstick) 106 mg/dL (70-99) 124 mg/dL (70-99) 141 mg/dL (70-99) Test 07/03/17 21:00 07/04/17 05:00 07/04/17 07:32 07/04/17 10:47 Glucose (Fingerstick) 179 mg/dL (70-99) 57 mg/dL (70-99) 101 mg/dL (70-99) White Blood Count 4.2 x10^3/uL (4.0-11.0) Red Blood Count 2.15 x10^6/uL (4.30-5.70) Hemoglobin 6.8 g/dL (13.0-17.5) Hematocrit 20.8 % (39.0-53.0) Mean Corpuscular Volume 97 fL (79-100) Mean Corpuscular Hemoglobin 32 pg (25-35) Mean Corpuscular Hemoglobin Concent 33 g/dL (31-37) Red Cell Distribution Width 19.6 % (11.5-14.5) Platelet Count 217 x10^3/uL (140-400) Neutrophils (%) (Auto) 83 % (31-73) Lymphocytes (%) (Auto) 9 % (24-48) Monocytes (%) (Auto) 7 % (0-9) Eosinophils (%) (Auto) 1 % (0-3) Basophils (%) (Auto) 0 % (0-3) Neutrophils # (Auto) 3.5 x10^3uL (1.8-7.7) Lymphocytes # (Auto) 0.4 x10^3/uL (1.0-4.8) Monocytes # (Auto) 0.3 x10^3/uL (0.0-1.1) Eosinophils # (Auto) 0.0 x10^3/uL (0.0-0.7) Basophils # (Auto) 0.0 x10^3/uL (0.0-0.2) Sodium Level 144 mmol/L (136-145) Potassium Level 3.9 mmol/L (3.5-5.1) Chloride Level 107 mmol/L (98-107) Carbon Dioxide Level 32 mmol/L (21-32) Anion Gap 5 (6-14) Blood Urea Nitrogen 49 mg/dL (8-26) Creatinine 2.0 mg/dL (0.7-1.3) Estimated GFR (Cockcroft-Gault) 32.8 Glucose Level 76 mg/dL (70-99) Calcium Level 8.3 mg/dL (8.5-10.1) Laboratory Tests Test 07/03/17 16:34 07/03/17 21:00 07/04/17 05:00 07/04/17 07:32 Glucose (Fingerstick) 141 mg/dL (70-99) 179 mg/dL (70-99) 57 mg/dL (70-99) White Blood Count 4.2 x10^3/uL (4.0-11.0) Red Blood Count 2.15 x10^6/uL (4.30-5.70) Hemoglobin 6.8 g/dL (13.0-17.5) Hematocrit 20.8 % (39.0-53.0) Mean Corpuscular Volume 97 fL (79-100) Mean Corpuscular Hemoglobin 32 pg (25-35) Mean Corpuscular Hemoglobin Concent 33 g/dL (31-37) Red Cell Distribution Width 19.6 % (11.5-14.5) Platelet Count 217 x10^3/uL (140-400) Neutrophils (%) (Auto) 83 % (31-73) Lymphocytes (%) (Auto) 9 % (24-48) Monocytes (%) (Auto) 7 % (0-9) Eosinophils (%) (Auto) 1 % (0-3) Basophils (%) (Auto) 0 % (0-3) Neutrophils # (Auto) 3.5 x10^3uL (1.8-7.7) Lymphocytes # (Auto) 0.4 x10^3/uL (1.0-4.8) Monocytes # (Auto) 0.3 x10^3/uL (0.0-1.1) Eosinophils # (Auto) 0.0 x10^3/uL (0.0-0.7) Basophils # (Auto) 0.0 x10^3/uL (0.0-0.2) Sodium Level 144 mmol/L (136-145) Potassium Level 3.9 mmol/L (3.5-5.1) Chloride Level 107 mmol/L (98-107) Carbon Dioxide Level 32 mmol/L (21-32) Anion Gap 5 (6-14) Blood Urea Nitrogen 49 mg/dL (8-26) Creatinine 2.0 mg/dL (0.7-1.3) Estimated GFR (Cockcroft-Gault) 32.8 Glucose Level 76 mg/dL (70-99) Calcium Level 8.3 mg/dL (8.5-10.1) Test 07/04/17 10:47 Glucose (Fingerstick) 101 mg/dL (70-99) Medications Active Scripts Medications Dose Route/Sig Max Daily Dose Days Date Category Amlodipine Besylate 5 Mg Tablet 10 Mg PO DAILY 06/22/17 Reported Azathioprine 50 Mg Tablet 4 Tab PO DAILY 06/22/17 Reported Docusate Sodium 100 Mg Capsule 1 Cap PO TID PRN PRN 06/22/17 Reported Ferrous Sulfate 325 Mg Tablet 1 Tab PO BIDAC 06/22/17 Reported Ondansetron Hcl 4 Mg Tablet 1 Tab PO PRN Q8HRS PRN 06/22/17 Reported Prednisone 10 Mg Tablet 5 Mg PO DAILY 06/22/17 Reported Thiamine Hcl 100 Mg Tablet 100 Mg PO 06/22/17 Reported Nystatin-Triamcinolone Cream (Nystatin/Triamcin) 15 Gm Cream..g. 1 Alexis TP BID 06/22/17 Reported Pantoprazole Sodium 40 Mg Tablet.dr 1 Tab PO DAILY 06/22/17 Reported Tacrolimus 0.5 Mg Capsule 0.5 Mg PO DAILY 06/22/17 Reported Tylenol (Acetaminophen) 325 Mg Tablet 1 Tab PO PRN Q6HRS PRN 06/22/17 Reported Haloperidol 0.5 Mg Tablet 0.25 Mg PO PRN Q8HRS PRN 06/22/17 Reported Metoprolol Tartrate 50 Mg Tablet 3 Tab PO BID 06/22/17 Reported Keflex (Cephalexin) 500 Mg Capsule 500 Mg PO QID 5 06/30/15 Rx Novolog Flexpen (Insulin Aspart) 100 Unit/1 Ml Insuln.pen 22 Unit SQ AC SUPPER 06/26/15 Reported Novolog Flexpen (Insulin Aspart) 100 Unit/1 Ml Insuln.pen 18 Unit SQ AC LUNCH 06/26/15 Reported Novolog Flexpen (Insulin Aspart) 100 Unit/1 Ml Insuln.pen 10 Unit SQ AC BREAKFAST 06/26/15 Reported Levothyroxine Sodium 88 Mcg Tablet 1 Tab PO DAILY 06/24/15 Reported Atorvastatin Calcium 10 Mg Tablet 1 Tab PO DAILY 06/24/15 Reported Loratadine 10 Mg Tablet 1 Tab PO DAILY 06/24/15 Reported Hydrochlorothiazide Tablet (Hydrochlorothiazide) 25 Mg Tablet 25 Mg PO DAILY 06/24/15 Reported Pepcid Ac (Famotidine) 20 Mg Tablet 20 Mg PO HS 06/24/15 Reported Tacrolimus 1 Mg Capsule 1 Mg PO BID 06/24/15 Reported Men's Multivitamin Gummies (Folic Acid/Multivit-Minerals) 200 Mcg Tab.chew 200 Mcg PO 06/24/15 Reported Aspirin 81 Mg Tab.chew 1 Tab PO DAILY 06/24/15 Reported Lantus (Insulin Glargine,Hum.rec.anlog) 100 Unit/1 Ml Vial 70 Unit SQ QHS 06/24/15 Reported Alendronate Sodium 70 Mg Tablet 70 Mg PO WEEKLY 06/24/15 Reported Comments IMPRESSION: CT 06/28 1. Ongoing moderate sized bilateral pleural effusions with considerable underlying atelectasis, worse in the lower lobes. 2. Moderate bilateral interlobular septal thickening compatible with interstitial pulmonary edema. 3. Extensive calcific plaquing of the aorta and coronary arteries. Impression . 1. Acute hypercapnic respiratory failure secondary to multifactorial in nature 2. Abnormal ct chest with EFFUSIONS S/P CHEST TUBE/ removed 07/03 3. Renal transplant and acute kidney FAILURE 4. Methicillin-resistant Staphylococcus aureus infection. 5. Hypernatremia 6. Severe protein-calorie malnutrition POA 7. Morbid obesity 8. Suspect BEVERLY/OHS 9. Acute/Chronic Cor Pulmonale 10. Chronic Lower Ext Lymphedema 11. Bilateral effusion Plan . CHEST TUBE REMOVED FROM RIGHT SIDE 07/03, no recurrence of effusion on right, no change on left CXR STABLE PRN BIPAP OFF IV DOP/LASIX/DOBUTAMINE PER CARDS TX TODAY TRANSFER TO [facility] WHEN OK BY MARKY GARCIA MD Jul 04, 2017 12:09
--- NOTE | 2017-07-04 13:00 | PDOC2 ---
GI CONSULT Reason For Consult: Anemia HPI: HPI: 72 y/o male admitted 06/22/17 w/ AMS, resp failure. Was intubated (extubated 06/25), also had chest tube placement for pleural effusion (removed 07/03). Has CHF and A Fib. H/o renal transplant at [facility] years ago, apparently follows w/ them (labs only), CKD, seems some issues w/ family re: recommendations here vs wanting to follow-up @ [place]. To transfer back to [facility] soon, but GI asked to see today re: anemia. The patient and his recall no h/o anemia, although I can document here back to 2014. Hgb this admission mostly in 7-8s, some drift to upper 6s requiring transfusion 07/02 and 07/04. Had epistaxis last week in ICU after NG tube removal, treated w/ Afrin. Otherwise denies bleeding including hematemesis, hematochezia, melena, or hematuria. While at [facility], had EGD w/ Dr. Macedo on 05/08/17 which showed erythematous, erosive, friable (w/ contact bleeding), ulcerated mucosa in the esophagus, LA Grade D esophagitis, normal stomach, and normal duodenum. Has had some "choking" and coughing w/ eating, followed by [facility], on dysphagia II diet. H/o GERD awhile ago, worse when supine, not bothersome now. H/o C Diff earlier this year, currently no diarrhea (or constipation). says he's lost 150 pounds since leg amputation, associated w/ decreased appetite. No n/v or abd pain. Can document previous EGDs w/ reflux (no Gan's on path). Can also document colonoscopy w/ Dr. Palomares in 2001 w/ diverticulosis. H/o adenomatous polyp in 1993. No liver, GB, or pancreas history. Per RN, ASA and Lovenox held today. On Imuran, prednisone, Aranesp, and famotidine. Had low iron in 2014. PMH: PMH: HTN, HLD, A Fib, CHF, BEVERLY, pulm HTN, PVD, DM, MRSA, GERD, C Diff, diverticulosis , ventral hernia (noted to contain SB loops w/o obstruction on CT in 05/2017), CKD, right renal mass (on CT 05/2017), BCC (w/ removal), leg surgeries, left AKA , renal transplant, cataract extraction, chest tube FH: Family History: No pertinent hx (denies GI cancers, IBD, PUD, GB disease, liver disease) Social History: Smoke: No ALCOHOL: none Drugs: None ROS: GEN: Denies fevers, chills, sweats HEENT: Denies blurred vision, sore throat CV: Denies chest pain RESP: +cough w/ eating GI: Per HPI : Denies hematuria, dysuria ENDO: +weight loss NEURO: Denies confusion, dizziness MSK: +swelling SKIN: Denies jaundice, pruritus Vitals: Vitals: Vital Signs Date Time Temp Pulse Resp B/P (MAP) Pulse Ox O2 Delivery O2 Flow Rate FiO2 07/04/17 11:00 97.6 82 20 155/58 (90) 99 Nasal Cannula 2.0 97.6 Labs: Labs: Laboratory Tests Test 07/03/17 16:34 07/03/17 21:00 07/04/17 05:00 07/04/17 07:32 Glucose (Fingerstick) 141 mg/dL (70-99) 179 mg/dL (70-99) 57 mg/dL (70-99) White Blood Count 4.2 x10^3/uL (4.0-11.0) Red Blood Count 2.15 x10^6/uL (4.30-5.70) Hemoglobin 6.8 g/dL (13.0-17.5) Hematocrit 20.8 % (39.0-53.0) Mean Corpuscular Volume 97 fL (79-100) Mean Corpuscular Hemoglobin 32 pg (25-35) Mean Corpuscular Hemoglobin Concent 33 g/dL (31-37) Red Cell Distribution Width 19.6 % (11.5-14.5) Platelet Count 217 x10^3/uL (140-400) Neutrophils (%) (Auto) 83 % (31-73) Lymphocytes (%) (Auto) 9 % (24-48) Monocytes (%) (Auto) 7 % (0-9) Eosinophils (%) (Auto) 1 % (0-3) Basophils (%) (Auto) 0 % (0-3) Neutrophils # (Auto) 3.5 x10^3uL (1.8-7.7) Lymphocytes # (Auto) 0.4 x10^3/uL (1.0-4.8) Monocytes # (Auto) 0.3 x10^3/uL (0.0-1.1) Eosinophils # (Auto) 0.0 x10^3/uL (0.0-0.7) Basophils # (Auto) 0.0 x10^3/uL (0.0-0.2) Sodium Level 144 mmol/L (136-145) Potassium Level 3.9 mmol/L (3.5-5.1) Chloride Level 107 mmol/L (98-107) Carbon Dioxide Level 32 mmol/L (21-32) Anion Gap 5 (6-14) Blood Urea Nitrogen 49 mg/dL (8-26) Creatinine 2.0 mg/dL (0.7-1.3) Estimated GFR (Cockcroft-Gault) 32.8 Glucose Level 76 mg/dL (70-99) Calcium Level 8.3 mg/dL (8.5-10.1) Test 07/04/17 10:47 Glucose (Fingerstick) 101 mg/dL (70-99) Allergies: Coded Allergies: No Known Drug Allergies (Unverified , 05/08/17) Medications: Current Medications Medications (Trade) Dose Ordered Sig/Ivett Route PRN Reason Start Time Stop Time Status Last Admin Dose Admin Tacrolimus (Prograf) 0.5 mg DAILY PO 07/04/17 09:00 07/04/17 11:53 Imaging: Imaging: Reviewed per chart. CXR 07/04/17 IMPRESSION: No significant change since yesterday's study. PE: GEN: NAD HEENT: Atraumatic, PERRL LUNGS: diminished, nasal cannula HEART: irregularly irregular, distant ABD: obese, BS+, non-tender EXTREMITY/SKIN : L>RUE edema, left BKA, RLE w/ stasis dermatitis, L AKA NEURO/PSYCH: A & O 3 A/P: A/P: Resp failure, CHF, h/o renal transplant w/ CKD (h/o HD) ACD, requiring transfusion -had epistaxis last week GERD, dysphagia -previous path neg for Gan's -on dysphagia diet, H2 brittaney QD CRC screen, h/o adenomatous polyp -normal colonoscopy 2001 H/o C Diff -neg this admission Weight loss -- Reviewed w/ Dr. Barclay - will check anemia parameters. Monitor CBC. Recent EGD w/ severe reflux esophagitis - consider changing from H2 brittaney to PPI. Also has dysphagia w/ recent intubation. KARLY VICTOR Jul 04, 2017 13:00
[2017-07-04 13:52] LABS: FOLATE 7.88 ng/ml (3.2-20.0)
[2017-07-04 16:07] LABS: % SAT IRON 19 % (15-34); IRON,SERUM 31 ug/dL (65-175)
[2017-07-04] MEDS: ATORVASTATIN CALCIUM 10 MG TABLET. PO SCH (20:59)
[2017-07-04] MEDS: FAMOTIDINE 20 MG TABLET. PO SCH (20:59)
[2017-07-04] MEDS: INSULIN DETEMIR 300 UNITS/3 ML INSULN.PEN. SQ SCH (21:00)
[2017-07-05 03:25] VITALS: BP 129/93
[2017-07-05 06:03] LABS: BASO % 1 % (0-3); EOS % 0 % (0-3); HEMOGLOBIN 8.2 g/dL (13.0-17.5); LYMPH # 0.6 x10^3/uL (1.0-4.8); LYMPH % 12 % (24-48); MEAN CORPUSCULAR HEMOGLOBIN 31 pg (25-35); MEAN CORPUSCULAR HGB CONC 32 g/dL (31-37); MEAN CORPUSCULAR VOLUME 97 fL (79-100); MONO % 8 % (0-9); NEUT % 80 % (31-73); PLATELET COUNT 264 x10^3/uL (140-400); RED BLOOD COUNT 2.69 x10^6/uL (4.30-5.70); RED CELL DISTRIBUTION WIDTH 19.4 % (11.5-14.5); WHITE BLOOD COUNT 5.5 x10^3/uL (4.0-11.0)
[2017-07-05] MEDS: LEVOTHYROXINE 88 MCG TABLET PO SCH ×2 (06:12→09:10)
[2017-07-05 06:21] LABS: CALCIUM 8.3 mg/dL (8.5-10.1); CREATININE 1.8 mg/dL (0.7-1.3); GFR 37.1
[2017-07-05 07:00] VITALS: BP 153/60
[2017-07-05] MEDS: ENOXAPARIN 40 MG/0.4 ML SYRINGE. SQ SCH (09:00)
[2017-07-05] MEDS: CETIRIZINE HCL 10 MG TABLET. PO SCH (09:00)
[2017-07-05] MEDS: NYSTATIN TOPICAL POWDER 15GM BOTTLE. TP SCH (09:06)
[2017-07-05] MEDS: ISOSORBIDE MONONITRATE ER 30 MG TAB.ER.24H PO SCH (09:10)
[2017-07-05] MEDS: TACROLIMUS 0.5 MG CAPSULE PO SCH (09:10)
[2017-07-05] MEDS: azaTHIOprine 50 MG TABLET PO SCH (09:10)
[2017-07-05] MEDS: FUROSEMIDE 40 MG TABLET. PO SCH ×2 (09:10→15:19)
[2017-07-05] MEDS: ASPIRIN CHEWABLE 81 MG TABLET. PO SCH (09:10)
[2017-07-05] MEDS: METOPROLOL TART IMMED RELEASE 50 MG TABLET. PO SCH (09:11)
[2017-07-05] MEDS: predniSONE 20 MG TABLET PO SCH (09:12)
[2017-07-05] MEDS ORDERED: HALOPERIDOL 0.5 MG TABLET. PO PRN (09:15)
[2017-07-05] MEDS ORDERED: DOCUSATE SODIUM 100 MG CAPSULE. PO PRN (09:15)
[2017-07-05] MEDS ORDERED: ONDANSETRON ODT 4 MG TAB.RAPDIS. PO PRN (09:30)
[2017-07-05] MEDS ORDERED: TRIAMCINOLONE ACETONIDE 0.1% TOPICAL CREAM 15GM TUBE. TP SCH (10:00)
[2017-07-05] MEDS ORDERED: NYSTATIN 100,000 UNIT/GM TOPICAL CREAM 15GM TUBE. TP SCH (10:00)
[2017-07-05] MEDS ORDERED: THIAMINE 100 MG TABLET. PO SCH (10:00)
[2017-07-05] MEDS ORDERED: PANTOPRAZOLE 40 MG TABLET.DR. PO SCH ×2 (10:00)
[2017-07-05] MEDS ORDERED: azaTHIOprine 50 MG TABLET PO ONE (10:00)
[2017-07-05 11:00] VITALS: BP 146/51
[2017-07-05] MEDS: FERROUS SULFATE 325 MG TABLET. PO SCH ×2 (11:20→15:20)
--- NOTE | 2017-07-05 11:20 | PDOC ---
Provider Note Provider Note dc summ dictated. JOb # [id number] GELA RODRIGUEZ MD Jul 05, 2017 11:20
--- NOTE | 2017-07-05 11:26 | PDOC ---
Subjective: Subjective: Doing better, still no bleeding. Objective: Objective: Per RN - possible DC to [facility] today if okay per GI. Vital Signs: Vital Signs Date Time Temp Pulse Resp B/P (MAP) Pulse Ox O2 Delivery O2 Flow Rate FiO2 07/05/17 09:11 72 07/05/17 07:00 97.6 20 153/60 (91) 99 Nasal Cannula 97.6 07/04/17 23:25 2.0 Labs: Laboratory Tests Test 07/04/17 16:57 07/04/17 20:35 07/05/17 05:30 07/05/17 07:56 Glucose (Fingerstick) 125 mg/dL 194 mg/dL 45 mg/dL White Blood Count 5.5 x10^3/uL Red Blood Count 2.69 x10^6/uL Hemoglobin 8.2 g/dL Hematocrit 26.0 % Mean Corpuscular Volume 97 fL Mean Corpuscular Hemoglobin 31 pg Mean Corpuscular Hemoglobin Concent 32 g/dL Red Cell Distribution Width 19.4 % Platelet Count 264 x10^3/uL Neutrophils (%) (Auto) 80 % Lymphocytes (%) (Auto) 12 % Monocytes (%) (Auto) 8 % Eosinophils (%) (Auto) 0 % Basophils (%) (Auto) 1 % Neutrophils # (Auto) 4.4 x10^3uL Lymphocytes # (Auto) 0.6 x10^3/uL Monocytes # (Auto) 0.4 x10^3/uL Eosinophils # (Auto) 0.0 x10^3/uL Basophils # (Auto) 0.0 x10^3/uL Sodium Level 145 mmol/L Potassium Level 4.0 mmol/L Chloride Level 107 mmol/L Carbon Dioxide Level 32 mmol/L Anion Gap 6 Blood Urea Nitrogen 48 mg/dL Creatinine 1.8 mg/dL Estimated GFR (Cockcroft-Gault) 37.1 Glucose Level 72 mg/dL Calcium Level 8.3 mg/dL Test 07/05/17 08:31 07/05/17 09:06 Glucose (Fingerstick) 48 mg/dL 74 mg/dL PE: GEN: NAD LUNGS: clear HEART: RR ABD: obese, non-tender NEURO/PSYCH: A & O 3 A/P: ACD, requiring transfusion -Hgb improved today s/p transfusion -had epistaxis last week otherwise no bleeding -h/o CKD, renal transplant -recent EGD ([place]) w/ severe reflux (prev path neg for Gan's) - changed from H2 brittaney to PPI -normal colonoscopy 2001 -- Reviewed w/ Dr. Barclay - js per GI to DC to [facility]. KARLY VICTOR Jul 05, 2017 11:26
--- NOTE | 2017-07-05 12:55 | PDOC ---
Renal-Progress Notes Subjective Notes Notes NONE History of Present Illness Hx of present illness STABLE Vitals Vitals Vital Signs Date Time Temp Pulse Resp B/P (MAP) Pulse Ox O2 Delivery O2 Flow Rate FiO2 07/05/17 09:11 72 07/05/17 07:00 97.6 20 153/60 (91) 99 Nasal Cannula 97.6 07/04/17 23:25 2.0 Weight Weight [ ] I.O. Intake and Output Intake and Output 07/05/17 07:00 Intake Total 1730 ml Output Total 725 ml Balance 1005 ml Intake Oral 1400 ml Blood Product IV Normal Saline Flush 330 ml Output Urine Total 725 ml # Bowel Movements 1 Labs Labs Laboratory Tests Test 07/04/17 16:57 07/04/17 20:35 07/05/17 05:30 07/05/17 07:56 Glucose (Fingerstick) 125 mg/dL (70-99) 194 mg/dL (70-99) 45 mg/dL (70-99) White Blood Count 5.5 x10^3/uL (4.0-11.0) Red Blood Count 2.69 x10^6/uL (4.30-5.70) Hemoglobin 8.2 g/dL (13.0-17.5) Hematocrit 26.0 % (39.0-53.0) Mean Corpuscular Volume 97 fL (79-100) Mean Corpuscular Hemoglobin 31 pg (25-35) Mean Corpuscular Hemoglobin Concent 32 g/dL (31-37) Red Cell Distribution Width 19.4 % (11.5-14.5) Platelet Count 264 x10^3/uL (140-400) Neutrophils (%) (Auto) 80 % (31-73) Lymphocytes (%) (Auto) 12 % (24-48) Monocytes (%) (Auto) 8 % (0-9) Eosinophils (%) (Auto) 0 % (0-3) Basophils (%) (Auto) 1 % (0-3) Neutrophils # (Auto) 4.4 x10^3uL (1.8-7.7) Lymphocytes # (Auto) 0.6 x10^3/uL (1.0-4.8) Monocytes # (Auto) 0.4 x10^3/uL (0.0-1.1) Eosinophils # (Auto) 0.0 x10^3/uL (0.0-0.7) Basophils # (Auto) 0.0 x10^3/uL (0.0-0.2) Sodium Level 145 mmol/L (136-145) Potassium Level 4.0 mmol/L (3.5-5.1) Chloride Level 107 mmol/L (98-107) Carbon Dioxide Level 32 mmol/L (21-32) Anion Gap 6 (6-14) Blood Urea Nitrogen 48 mg/dL (8-26) Creatinine 1.8 mg/dL (0.7-1.3) Estimated GFR (Cockcroft-Gault) 37.1 Glucose Level 72 mg/dL (70-99) Calcium Level 8.3 mg/dL (8.5-10.1) Test 07/05/17 08:31 07/05/17 09:06 Glucose (Fingerstick) 48 mg/dL (70-99) 74 mg/dL (70-99) Micro Micro Microbiology 06/29/17 Gram Stain - Final, Complete Review of Systems Constitutional: yes: weakness, alert, oriented Ears/Nose/Throat: Yes: no symptom reported Eyes: Yes: no symptom reported Pulmonary: Yes dyspnea Cardiovascular: Yes no symptom reported Gastrointestional: Yes: constipation Genitourinary: Yes: no symptom reported Musculoskeletal: Yes: muscle stiffness Skin: Yes color change Endocrine: Yes: no symptom reported Physical Exam General Appearance: no apparent distress Skin: warm Respiratory: decreased breath sounds Abdomen: soft, bowel sounds present Genitourinary: bladder flat Extremities: pulses present, other (LEFT BKA) Neurology: alert, follow commands Assessment Assessment IMP REJI-ATN-CR OF 1.9 TODAY CKD - CHRONIC ALLOGRAFT NEPHROPATHY WITH CR OF 1.9-2.4 AT BASELINE HX OR RENAL TRANSPLANT 15 YEARS AGO-LIVING RELATED(SON) PLEURAL EFFUSION-S/P RIGHT THORACOSTOMY TUBE-TUBE OUT YESTERDAY DIASTOLIC CHF-IMPROVING ACUTE ON CHRONIC RESP FAILURE-S/P EXTUBATION ANEMIA OF CHRONIC DISEASE CHRONIC AFIB BEVERLY/PULM HTN RENAL MASS WITH ? METS LE LYMPHEDEMA S/P LEFT BKA EARLIER THIS YEAR SEVERE DECONDITIONING CHRONIC IMMUNOSUPPRESSION PLAN CONT PO LASIX PT TO LTAC TODAY WILL FOLLOW THERE CONT SAME MEDS UPDATED FAMILY D/[facility] Jul 05, 2017 12:55
--- NOTE | 2017-07-05 13:33 | PDOC ---
PULMONARY PROGRESS NOTES Subjective EXTUBATED 06/25 NOW ON N/C Vitals Vital Signs Date Time Temp Pulse Resp B/P (MAP) Pulse Ox O2 Delivery O2 Flow Rate FiO2 07/05/17 09:11 72 07/05/17 07:00 97.6 20 153/60 (91) 99 Nasal Cannula 97.6 07/04/17 23:25 2.0 ROS: No Chest Pain, No Abdominal Pain, No Increase Cough General: Alert, No acute distress Lungs: Clear Cardiovascular: S1, S2 Abdomen: Soft, Other (obese) Neuro Exam: Alert Extremities: Other (right lymphedema, left BKA) Skin: Warm Labs Laboratory Tests Test 07/03/17 16:34 07/03/17 21:00 07/04/17 05:00 07/04/17 07:32 Glucose (Fingerstick) 141 mg/dL (70-99) 179 mg/dL (70-99) 57 mg/dL (70-99) White Blood Count 4.2 x10^3/uL (4.0-11.0) Red Blood Count 2.15 x10^6/uL (4.30-5.70) Hemoglobin 6.8 g/dL (13.0-17.5) Hematocrit 20.8 % (39.0-53.0) Mean Corpuscular Volume 97 fL (79-100) Mean Corpuscular Hemoglobin 32 pg (25-35) Mean Corpuscular Hemoglobin Concent 33 g/dL (31-37) Red Cell Distribution Width 19.6 % (11.5-14.5) Platelet Count 217 x10^3/uL (140-400) Neutrophils (%) (Auto) 83 % (31-73) Lymphocytes (%) (Auto) 9 % (24-48) Monocytes (%) (Auto) 7 % (0-9) Eosinophils (%) (Auto) 1 % (0-3) Basophils (%) (Auto) 0 % (0-3) Neutrophils # (Auto) 3.5 x10^3uL (1.8-7.7) Lymphocytes # (Auto) 0.4 x10^3/uL (1.0-4.8) Monocytes # (Auto) 0.3 x10^3/uL (0.0-1.1) Eosinophils # (Auto) 0.0 x10^3/uL (0.0-0.7) Basophils # (Auto) 0.0 x10^3/uL (0.0-0.2) Reticulocyte Count (auto) 1.3 % (0.5-2.5) Sodium Level 144 mmol/L (136-145) Potassium Level 3.9 mmol/L (3.5-5.1) Chloride Level 107 mmol/L (98-107) Carbon Dioxide Level 32 mmol/L (21-32) Anion Gap 5 (6-14) Blood Urea Nitrogen 49 mg/dL (8-26) Creatinine 2.0 mg/dL (0.7-1.3) Estimated GFR (Cockcroft-Gault) 32.8 Glucose Level 76 mg/dL (70-99) Calcium Level 8.3 mg/dL (8.5-10.1) Iron Level 31 ug/dL (65-175) Total Iron Binding Capacity 159 ug/dL (250-450) Iron Saturation 19 % (15-34) Vitamin B12 Level 316 pg/mL (247-911) Serum Folate 7.88 ng/ml (3.2-20.0) Test 07/04/17 10:47 07/04/17 16:57 07/04/17 20:35 07/05/17 05:30 Glucose (Fingerstick) 101 mg/dL (70-99) 125 mg/dL (70-99) 194 mg/dL (70-99) White Blood Count 5.5 x10^3/uL (4.0-11.0) Red Blood Count 2.69 x10^6/uL (4.30-5.70) Hemoglobin 8.2 g/dL (13.0-17.5) Hematocrit 26.0 % (39.0-53.0) Mean Corpuscular Volume 97 fL (79-100) Mean Corpuscular Hemoglobin 31 pg (25-35) Mean Corpuscular Hemoglobin Concent 32 g/dL (31-37) Red Cell Distribution Width 19.4 % (11.5-14.5) Platelet Count 264 x10^3/uL (140-400) Neutrophils (%) (Auto) 80 % (31-73) Lymphocytes (%) (Auto) 12 % (24-48) Monocytes (%) (Auto) 8 % (0-9) Eosinophils (%) (Auto) 0 % (0-3) Basophils (%) (Auto) 1 % (0-3) Neutrophils # (Auto) 4.4 x10^3uL (1.8-7.7) Lymphocytes # (Auto) 0.6 x10^3/uL (1.0-4.8) Monocytes # (Auto) 0.4 x10^3/uL (0.0-1.1) Eosinophils # (Auto) 0.0 x10^3/uL (0.0-0.7) Basophils # (Auto) 0.0 x10^3/uL (0.0-0.2) Sodium Level 145 mmol/L (136-145) Potassium Level 4.0 mmol/L (3.5-5.1) Chloride Level 107 mmol/L (98-107) Carbon Dioxide Level 32 mmol/L (21-32) Anion Gap 6 (6-14) Blood Urea Nitrogen 48 mg/dL (8-26) Creatinine 1.8 mg/dL (0.7-1.3) Estimated GFR (Cockcroft-Gault) 37.1 Glucose Level 72 mg/dL (70-99) Calcium Level 8.3 mg/dL (8.5-10.1) Test 07/05/17 07:56 07/05/17 08:31 07/05/17 09:06 Glucose (Fingerstick) 45 mg/dL (70-99) 48 mg/dL (70-99) 74 mg/dL (70-99) Laboratory Tests Test 07/04/17 16:57 07/04/17 20:35 07/05/17 05:30 07/05/17 07:56 Glucose (Fingerstick) 125 mg/dL (70-99) 194 mg/dL (70-99) 45 mg/dL (70-99) White Blood Count 5.5 x10^3/uL (4.0-11.0) Red Blood Count 2.69 x10^6/uL (4.30-5.70) Hemoglobin 8.2 g/dL (13.0-17.5) Hematocrit 26.0 % (39.0-53.0) Mean Corpuscular Volume 97 fL (79-100) Mean Corpuscular Hemoglobin 31 pg (25-35) Mean Corpuscular Hemoglobin Concent 32 g/dL (31-37) Red Cell Distribution Width 19.4 % (11.5-14.5) Platelet Count 264 x10^3/uL (140-400) Neutrophils (%) (Auto) 80 % (31-73) Lymphocytes (%) (Auto) 12 % (24-48) Monocytes (%) (Auto) 8 % (0-9) Eosinophils (%) (Auto) 0 % (0-3) Basophils (%) (Auto) 1 % (0-3) Neutrophils # (Auto) 4.4 x10^3uL (1.8-7.7) Lymphocytes # (Auto) 0.6 x10^3/uL (1.0-4.8) Monocytes # (Auto) 0.4 x10^3/uL (0.0-1.1) Eosinophils # (Auto) 0.0 x10^3/uL (0.0-0.7) Basophils # (Auto) 0.0 x10^3/uL (0.0-0.2) Sodium Level 145 mmol/L (136-145) Potassium Level 4.0 mmol/L (3.5-5.1) Chloride Level 107 mmol/L (98-107) Carbon Dioxide Level 32 mmol/L (21-32) Anion Gap 6 (6-14) Blood Urea Nitrogen 48 mg/dL (8-26) Creatinine 1.8 mg/dL (0.7-1.3) Estimated GFR (Cockcroft-Gault) 37.1 Glucose Level 72 mg/dL (70-99) Calcium Level 8.3 mg/dL (8.5-10.1) Test 07/05/17 08:31 07/05/17 09:06 Glucose (Fingerstick) 48 mg/dL (70-99) 74 mg/dL (70-99) Medications Active Scripts Medications Dose Route/Sig Max Daily Dose Days Date Category Amlodipine Besylate 5 Mg Tablet 10 Mg PO DAILY 06/22/17 Reported Azathioprine 50 Mg Tablet 4 Tab PO DAILY 06/22/17 Reported Docusate Sodium 100 Mg Capsule 1 Cap PO TID PRN PRN 06/22/17 Reported Ferrous Sulfate 325 Mg Tablet 1 Tab PO BIDAC 06/22/17 Reported Ondansetron Hcl 4 Mg Tablet 1 Tab PO PRN Q8HRS PRN 06/22/17 Reported Prednisone 10 Mg Tablet 5 Mg PO DAILY 06/22/17 Reported Thiamine Hcl 100 Mg Tablet 100 Mg PO 06/22/17 Reported Nystatin-Triamcinolone Cream (Nystatin/Triamcin) 15 Gm Cream..g. 1 Alexis TP BID 06/22/17 Reported Pantoprazole Sodium 40 Mg Tablet.dr 1 Tab PO DAILY 06/22/17 Reported Tacrolimus 0.5 Mg Capsule 0.5 Mg PO DAILY 06/22/17 Reported Tylenol (Acetaminophen) 325 Mg Tablet 1 Tab PO PRN Q6HRS PRN 06/22/17 Reported Haloperidol 0.5 Mg Tablet 0.25 Mg PO PRN Q8HRS PRN 06/22/17 Reported Metoprolol Tartrate 50 Mg Tablet 3 Tab PO BID 06/22/17 Reported Keflex (Cephalexin) 500 Mg Capsule 500 Mg PO QID 5 06/30/15 Rx Novolog Flexpen (Insulin Aspart) 100 Unit/1 Ml Insuln.pen 22 Unit SQ AC SUPPER 06/26/15 Reported Novolog Flexpen (Insulin Aspart) 100 Unit/1 Ml Insuln.pen 18 Unit SQ AC LUNCH 06/26/15 Reported Novolog Flexpen (Insulin Aspart) 100 Unit/1 Ml Insuln.pen 10 Unit SQ AC BREAKFAST 06/26/15 Reported Levothyroxine Sodium 88 Mcg Tablet 1 Tab PO DAILY 06/24/15 Reported Atorvastatin Calcium 10 Mg Tablet 1 Tab PO DAILY 06/24/15 Reported Loratadine 10 Mg Tablet 1 Tab PO DAILY 06/24/15 Reported Hydrochlorothiazide Tablet (Hydrochlorothiazide) 25 Mg Tablet 25 Mg PO DAILY 06/24/15 Reported Pepcid Ac (Famotidine) 20 Mg Tablet 20 Mg PO HS 06/24/15 Reported Tacrolimus 1 Mg Capsule 1 Mg PO BID 06/24/15 Reported Men's Multivitamin Gummies (Folic Acid/Multivit-Minerals) 200 Mcg Tab.chew 200 Mcg PO 06/24/15 Reported Aspirin 81 Mg Tab.chew 1 Tab PO DAILY 06/24/15 Reported Lantus (Insulin Glargine,Hum.rec.anlog) 100 Unit/1 Ml Vial 70 Unit SQ QHS 06/24/15 Reported Alendronate Sodium 70 Mg Tablet 70 Mg PO WEEKLY 06/24/15 Reported Comments IMPRESSION: CT 06/28 1. Ongoing moderate sized bilateral pleural effusions with considerable underlying atelectasis, worse in the lower lobes. 2. Moderate bilateral interlobular septal thickening compatible with interstitial pulmonary edema. 3. Extensive calcific plaquing of the aorta and coronary arteries. Impression . 1. Acute hypercapnic respiratory failure secondary to multifactorial in nature 2. Abnormal ct chest with EFFUSIONS S/P CHEST TUBE/ removed 07/03 3. Renal transplant and acute kidney FAILURE 4. Methicillin-resistant Staphylococcus aureus infection. 5. Hypernatremia 6. Severe protein-calorie malnutrition POA 7. Morbid obesity 8. Suspect BEVERLY/OHS 9. Acute/Chronic Cor Pulmonale 10. Chronic Lower Ext Lymphedema 11. Bilateral effusion Plan . CHEST TUBE REMOVED FROM RIGHT SIDE 07/03, no recurrence of effusion on right, no change on left CXR STABLE PRN BIPAP OFF IV DOP/LASIX/DOBUTAMINE PER CARDS TX PRN TRANSFER TO [facility] WHEN OK BY MARKY GARCIA MD Jul 05, 2017 13:33
--- NOTE | 2017-07-05 13:43 | DS ---
DATE OF DISCHARGE: 07/05/2017 ADDENDUM Please see my discharge dictation done a few days ago. The patient needed transfusion of 1 packed RBCs for a hemoglobin of 6.8 around 2 days prior to discharge. This has happened twice in his stay towards the latter end of his stay. Nephrology recommended GI consult. GI has seen the patient. Last EGD was a few months ago, showed only GERD, reflux esophagitis. GI recommended just changing from H2 antagonist to a PPI, which I did. Otherwise, supportive treatment. The patient has an allograft kidney, has other chronic medical illnesses that might be contributing to chronic anemia, multifactorial. DISCHARGE DISPOSITION: [facility]. Discussed with RN, Pat, palliative. at bedside. ____ boot is already in place. Consult performed. Multiple procedures performed. Please see chart. GELA RODRIGUEZ MD DR: /nts JOB#: [id number] / [id number]
[2017-07-05 15:00] VITALS: BP 138/67
[2017-07-05] MEDS ORDERED: NON FORMULARY ITEM (Nystatin/Triamcin (Nystatin-Triamcinolone Cream) 1 APP) TP SCH (21:00)
[2017-07-05] MEDS ORDERED: INSULIN DETEMIR 300 UNITS/3 ML INSULN.PEN. SQ SCH (21:00)
[2017-07-06] MEDS ORDERED: azaTHIOprine 50 MG TABLET PO SCH (09:00)
== END 2017-07-05 20:45 | DRG 208 ==
LOC: ER 04:47 → 1 WEST ICU 05:11 → 2 NORTH 07-01 20:31
PROVIDERS: ADMIT Internal Medicine; ATTEND Internal Medicine
PROC: 5A1945Z Respiratory Ventilation, 24-96 Consecutive Hours (ICD-10-PCS; principal; 2017-06-22)
PROC: 0BH17EZ Insertion of Endotracheal Airway into Trachea, Via Natural or Artificial Opening (ICD-10-PCS; 2017-06-22)
PROC: 30233N1 Transfusion of Nonautologous Red Blood Cells into Peripheral Vein, Percutaneous Approach (ICD-10-PCS; 2017-06-22)
PROC: 5A09357 Assistance with Respiratory Ventilation, Less than 24 Consecutive Hours, Continuous Positive Airway Pressure (ICD-10-PCS; 2017-06-22)
PROC: 5A09357 Assistance with Respiratory Ventilation, Less than 24 Consecutive Hours, Continuous Positive Airway Pressure (ICD-10-PCS; 2017-06-22)
PROC: 5A09357 Assistance with Respiratory Ventilation, Less than 24 Consecutive Hours, Continuous Positive Airway Pressure (ICD-10-PCS; 2017-06-22)
PROC: 02HV33Z Insertion of Infusion Device into Superior Vena Cava, Percutaneous Approach (ICD-10-PCS; 2017-06-22)
PROC: B548ZZA Ultrasonography of Superior Vena Cava, Guidance (ICD-10-PCS; 2017-06-22)
PROC: 0W9930Z Drainage of Right Pleural Cavity with Drainage Device, Percutaneous Approach (ICD-10-PCS; 2017-06-29)
DX: J96.21 Acute and chronic respiratory failure with hypoxia (principal); J69.0 Pneumonitis due to inhalation of food and vomit; R57.9 Shock, unspecified; N17.0 Acute kidney failure with tubular necrosis; E43 Unspecified severe protein-calorie malnutrition; G92 Toxic encephalopathy; G93.1 Anoxic brain damage, not elsewhere classified; I48.1 Persistent atrial fibrillation; E11.22 Type 2 diabetes mellitus with diabetic chronic kidney disease; I50.33 Acute on chronic diastolic (congestive) heart failure; N18.6 End stage renal disease; I13.2 Hypertensive heart and chronic kidney disease with heart failure and with stage 5 chronic kidney disease, or end stage renal disease; E87.0 Hyperosmolality and hypernatremia; Z68.42 Body mass index [BMI] 45.0-49.9, adult; E87.2 Acidosis; Z94.0 Kidney transplant status; I48.2 Chronic atrial fibrillation; J96.22 Acute and chronic respiratory failure with hypercapnia; I27.29 Other secondary pulmonary hypertension; E86.9 Volume depletion, unspecified; E66.01 Morbid (severe) obesity due to excess calories; E11.51 Type 2 diabetes mellitus with diabetic peripheral angiopathy without gangrene; D63.8 Anemia in other chronic diseases classified elsewhere; E03.9 Hypothyroidism, unspecified; E78.5 Hyperlipidemia, unspecified; E87.6 Hypokalemia; F41.9 Anxiety disorder, unspecified; G47.33 Obstructive sleep apnea (adult) (pediatric); I27.81 Cor pulmonale (chronic); I35.1 Nonrheumatic aortic (valve) insufficiency; I44.7 Left bundle-branch block, unspecified; K21.0 Gastro-esophageal reflux disease with esophagitis; L30.9 Dermatitis, unspecified; M81.0 Age-related osteoporosis without current pathological fracture; Z79.4 Long term (current) use of insulin; Z79.82 Long term (current) use of aspirin; Z82.49 Family history of ischemic heart disease and other diseases of the circulatory system; Z85.828 Personal history of other malignant neoplasm of skin; Z86.14 Personal history of Methicillin resistant Staphylococcus aureus infection; Z89.512 Acquired absence of left leg below knee; Z89.612 Acquired absence of left leg above knee; Z99.2 Dependence on renal dialysis; K57.90 Diverticulosis of intestine, part unspecified, without perforation or abscess without bleeding; M19.90 Unspecified osteoarthritis, unspecified site; Z51.5 Encounter for palliative care; I89.0 Lymphedema, not elsewhere classified
CPT/HCPCS: 31500; 32557; 36415; 36556; 36600; 70450; 71010; 71250; 74000; 76776; 80048; 80053; 80069; 80197; 80202; 82042; 82150; 82553; 82570; 82607; 82746; 82805; 82945; 82962; 83540; 83550; 83605; 83615; 83735; 83880; 83986; 84100; 84157; 84300; 84484; 85007; 85014; 85018; 85025; 85027; 85045; 85610; 85730; 86850; 86900; 86901; 86920; 87071; 87075; 87205; 87324; 87641; 88112; 88305; 89050; 93005; 93306; 94002; 94003; 94660; 94760; 96374; 96375; A4215; C1729; C1892; J0360; J0881; J1250; J1265; J1650; J1815; J2250; J2405; J2543; J2704; J3010; J3370; J3490; J7030; J7040; J7042; J7050; J7060; J7500; J7507; J7512; P9016; P9046; Q0163; 92526; 92610; 97110; 97530; 97535; 99291-25

== ENCOUNTER 2018-12-23 13:29 | Inpatient (IN) | payer MEDICARE ==
[~2018-12-23] VITALS: Ht 188 cm; Wt 144.7 kg
[~2018-12-23 13:29] MED LIST changes: +ACET325T9 PO; +ACET500T68 PO; -ALEN70TA5 PO; +ALEN70TA6 PO; +AMLO5TAB10 PO; +AZAT50TA PO; +DOCU100C28 PO; +FERR325T14 PO; +HALO0.5T PO; +HYDR-2145 PO; -HYDR25TA9 PO; +METO50TA6 PO; +NYST15CR2 TP; +ONDA4TAB11 PO; +PANT40TA5 PO; +PRED-220 PO; +TACR0.5C2 PO; +THIA100T8 PO
--- NOTE | 2018-12-23 14:13 | PHYS DOC ---
Past Medical History Past Medical History: Diabetes-Type II Additional Past Medical Histor: obese, dialysis in past, h/o kidney fail., lymphodema, bilat LL trauma Past Surgical History: Other Additional Past Surgical Histo: LEFT LEG AMPUTATION Alcohol Use: None Drug Use: None Adult General Chief Complaint Chief Complaint: COUGH HPI HPI 73-year-old male presents to ER with complaints of increased shortness of air and nonproductive cough. Patient states over this past several weeks symptoms have been gradually worsening. Patient states he has felt feverish but ports he has been checking his temperature with no fever at home. Patient states he has had some sinus drainage which has caused him to have nausea and vomiting. Patient is denying any chest pain or palpitations. Patient denies increased swelling as he has history of lymphedema and lower extremity. Patient is on daily prednisone 5 mg maintenance dose. He is diabetic and Accu-Chek at bedside was 149. Patient's family at bedside reports patient was inpatient at in August with the flu and did code due to GI bleed which required CPR and intubation. Patient per family's recollection had been started on heparin due to renal issues which caused the GI bleed. Patient was sent to rehabilitation following discharge. Patient per family has returned to baseline. Patient's does for his concerns that his intubation caused lung issues. Review of Systems Review of Systems Constitutional: Reports feeling feverish but states he has checked his temperature multiple times at home with no fever. Reports generalized fatigue and weakness. Eyes: Denies change in visual acuity, redness, or eye pain [] HENT: Denies sore throat/ear ache. Reports sinus congestion/drainage Respiratory: Reports nonproductive cough with shortness of air Cardiovascular: Denies CP/palpitations GI: Denies abdominal pain, bloody stools or diarrhea. Reports appetite has been decreased. Denies dark tarry stools. Reports intermittent N/V w/sinus drainage- currently denies nausea : Denies dysuria or hematuria [] Musculoskeletal: Denies back pain or joint pain [] Integument: Denies rash or skin lesions. Denies increased swelling Neurologic: Denies headache, focal weakness or sensory changes. Denies dizziness Endocrine: Denies polyuria or polydipsia [] All other systems were reviewed and found to be within normal limits, except as documented in this note. Allergies Allergies Allergies Coded Allergies Type Severity Reaction Last Updated Verified No Known Drug Allergies 05/08/17 No Physical Exam Physical Exam Constitutional: Well developed, well nourished, no acute distress, non-toxic appearance. [] HENT: Normocephalic, atraumatic, oropharynx moist, no oral exudates Eyes: Pupils equal, conjunctiva normal, no discharge. [] Neck: Normal range of motion, no tenderness, supple, no stridor. [] Cardiovascular: Heart rate regular rhythm, no murmur [] Lungs & Thorax: Bilateral breath sounds clear to auscultation-diminished air movement throughout all lung rahman with less air movement in bases. Respirations slightly labored- pt is able to speak in full sentences Abdomen: Bowel sounds normal, soft, no tenderness, no masses, no pulsatile masses. [] Skin: Warm, dry, no erythema, no rash. [] Back: No tenderness, no CVA tenderness. [] Extremities: No tenderness, no cyanosis. Lt AKA. Rt foot in ortho shoe due- 2+ pedal rt ankle/foot Neurologic: Alert and oriented X 3, normal motor function, normal sensory fu nction, no focal deficits noted. [] Psychologic: Affect normal, judgement normal, mood normal. [] Current Patient Data Vital Signs Vital Signs Date Time Temp Pulse Resp B/P (MAP) Pulse Ox O2 Delivery O2 Flow Rate FiO2 12/23/18 13:46 97.7 70 20 147/68 (94) 95 Room Air 97.7 Lab Values Laboratory Tests Test 12/23/18 13:46 12/23/18 14:05 12/23/18 15:10 Glucose (Fingerstick) 149 mg/dL (70-99) H White Blood Count 7.2 x10^3/uL (4.0-11.0) Red Blood Count 3.78 x10^6/uL (4.30-5.70) L Hemoglobin 9.3 g/dL (13.0-17.5) L Hematocrit 30.5 % (39.0-53.0) L Mean Corpuscular Volume 81 fL (79-100) Mean Corpuscular Hemoglobin 25 pg (25-35) Mean Corpuscular Hemoglobin Concent 31 g/dL (31-37) Red Cell Distribution Width 17.0 % (11.5-14.5) H Platelet Count 232 x10^3/uL (140-400) Neutrophils (%) (Auto) 81 % (31-73) H Lymphocytes (%) (Auto) 9 % (24-48) L Monocytes (%) (Auto) 8 % (0-9) Eosinophils (%) (Auto) 2 % (0-3) Basophils (%) (Auto) 1 % (0-3) Neutrophils # (Auto) 5.8 x10^3uL (1.8-7.7) Lymphocytes # (Auto) 0.6 x10^3/uL (1.0-4.8) L Monocytes # (Auto) 0.6 x10^3/uL (0.0-1.1) Eosinophils # (Auto) 0.1 x10^3/uL (0.0-0.7) Basophils # (Auto) 0.1 x10^3/uL (0.0-0.2) Lactic Acid Level 1.8 mmol/L (0.4-2.0) Sodium Level 143 mmol/L (136-145) Potassium Level 4.4 mmol/L (3.5-5.1) Chloride Level 106 mmol/L (98-107) Carbon Dioxide Level 28 mmol/L (21-32) Anion Gap 9 (6-14) Blood Urea Nitrogen 18 mg/dL (8-26) Creatinine 2.2 mg/dL (0.7-1.3) H Estimated GFR (Cockcroft-Gault) 29.3 BUN/Creatinine Ratio 8 (6-20) Glucose Level 134 mg/dL (70-99) H Calcium Level 9.2 mg/dL (8.5-10.1) Total Bilirubin 0.4 mg/dL (0.2-1.0) Aspartate Amino Transferase (AST) 19 U/L (15-37) Alanine Aminotransferase (ALT) 16 U/L (16-63) Alkaline Phosphatase 88 U/L (46-116) Troponin I Quantitative 0.042 ng/mL (0.000-0.055) NO-Dsn-U-Type Natriuretic Peptide 68290 pg/mL (0-449) H Total Protein 7.4 g/dL (6.4-8.2) Albumin 2.8 g/dL (3.4-5.0) L Albumin/Globulin Ratio 0.6 (1.0-1.7) L Laboratory Tests 12/23/18 14:05 Laboratory Tests 12/23/18 15:10 Microbiology 12/23/18 Blood Culture - Preliminary, Resulted NO GROWTH AFTER 2 DAYS EKG EKG EKG obtained 12/23/18 at 1420 Interpreted by ER physician Radiology/Procedures Radiology/Procedures PROCEDURE: CHEST AP ONLY EXAM: CHEST 1 VIEW. HISTORY: Shortness of breath. COMPARISON: 07/04/2017. FINDINGS: A frontal view of the chest is obtained. There are small bilateral pleural effusions with bibasilar atelectasis. Additional interstitial and airspace opacities in the bases are consistent with mild to moderate pulmonary edema. There is no pneumothorax. The heart is mildly enlarged. There are atherosclerotic calcifications of the aorta. There is a calcified granuloma on the right. IMPRESSION: 1. [id number] pulmonary edema. Small bilateral pleural effusions. Mild cardiomegaly. Electronically signed by: Clarissa Hernandez MD (12/23/2018 3:18 PM) [facility] DICTATED and SIGNED BY: BETTINA HERNANDEZ MD DATE: 12/23/18 1518 Course & Med Decision Making Course & Med Decision Making Pertinent Labs and Imaging studies reviewed. (See chart for details) 1535: Patient was evaluated in the ER for complaints of increased shortness of air which has been gradually worsening over the past several weeks. Discussed test results with patient and his . Discussed admission for further care and monitoring and both are agreeable with this plan. Will speak with hospitalist and admit to their services for further care. 1640: Spoke with Dr. Mcgarry, hospitalist and discussed pt's case and admit plan. Dragon Disclaimer Dragon Disclaimer This electronic medical record was generated, in whole or in part, using a voice recognition dictation system. Departure Departure Impression: Primary Impression: Dyspnea Additional Impression: Pulmonary edema Disposition: ADMITTED INPATIENT (Admitted to Dr. Mcgarry) Condition: STABLE Referrals: BUBBA DOMINIQUE MD (PCP) Problem Qualifiers KERI DONIS APRN Dec 23, 2018 14:13
[2018-12-23 14:16] LABS: BASO # 0.1 x10^3/uL (0.0-0.2); BASO % 1 % (0-3); EOS # 0.1 x10^3/uL (0.0-0.7); EOS % 2 % (0-3); HEMATOCRIT 30.5 % (39.0-53.0); HEMOGLOBIN 9.3 g/dL (13.0-17.5); LYMPH # 0.6 x10^3/uL (1.0-4.8); LYMPH % 9 % (24-48); MEAN CORPUSCULAR HEMOGLOBIN 25 pg (25-35); MEAN CORPUSCULAR HGB CONC 31 g/dL (31-37); MEAN CORPUSCULAR VOLUME 81 fL (79-100); MONO # 0.6 x10^3/uL (0.0-1.1); MONO % 8 % (0-9); NEUT # 5.8 x10^3uL (1.8-7.7); NEUT % 81 % (31-73); PLATELET COUNT 232 x10^3/uL (140-400); RED BLOOD COUNT 3.78 x10^6/uL (4.30-5.70); WHITE BLOOD COUNT 7.2 x10^3/uL (4.0-11.0)
--- NOTE | 2018-12-23 15:22 | RAD ---
EXAM: CHEST 1 VIEW. HISTORY: Shortness of breath. COMPARISON: 07/04/2017. FINDINGS: A frontal view of the chest is obtained. There are small bilateral pleural effusions with bibasilar atelectasis. Additional interstitial and airspace opacities in the bases are consistent with mild to moderate pulmonary edema. There is no pneumothorax. The heart is mildly enlarged. There are atherosclerotic calcifications of the aorta. There is a calcified granuloma on the right. IMPRESSION: 1. [id number] pulmonary edema. Small bilateral pleural effusions. Mild cardiomegaly. Electronically signed by: Clarissa Hernandez MD (12/23/2018 3:18 PM) [facility]
--- NOTE | 2018-12-23 15:22 | EKG ---
[facility] [address] [place] [address] Test Date: 2018-12-23 Test Time: 14:20:52 Pat Name: JACQUES STEVENSONDaniellaPatria Department: Room: Gender: Con[employer] Mason: : 1945 Requested By: KERI DONIS Order Number: [id number] Reading MD: Measurements Intervals Dunbar Rate: 71 P: MS: QRS: -14 QRSD: 154 T: 149 QT: 452 QTc: 497 Interpretive Statements IRREGULAR RHYTHM, NO P-WAVE FOUND LEFTWARD AXIS NON SPECIFIC INTRAVENTRICULAR BLOCK QRS(T) CONTOUR ABNORMALITY CONSIDER ANTEROSEPTAL MYOCARDIAL DAMAGE ABNORMAL ECG RI6.01 Unconfirmed report No previous ECG available for comparison
[2018-12-23 15:35] LABS: CALCIUM 9.2 mg/dL (8.5-10.1); CREATININE 2.2 mg/dL (0.7-1.3); GFR 29.3; POTASSIUM 4.4 mmol/L (3.5-5.1)
[2018-12-23 15:44] LABS: ALBUMIN 2.8 g/dL (3.4-5.0); ALBUMIN/GLOBULIN RATIO 0.6 (1.0-1.7); TOTAL BILIRUBIN 0.4 mg/dL (0.2-1.0); TOTAL PROTEIN 7.4 g/dL (6.4-8.2)
[2018-12-23] MEDS ORDERED: DOCUSATE SODIUM 100 MG CAPSULE. PO PRN (18:45)
[2018-12-23] MEDS ORDERED: ONDANSETRON ODT 4 MG TAB.RAPDIS. PO PRN (19:00)
[2018-12-23] MEDS ORDERED: HALOPERIDOL 2 MG/ML ORAL.CONC. PO PRN (19:00)
[2018-12-23] MEDS: METOPROLOL TART IMMED RELEASE 50 MG TABLET. PO SCH (19:42)
[2018-12-23 19:50] VITALS: BP 192/76
[2018-12-23] MEDS: TACROLIMUS 0.5 MG CAPSULE PO SCH (21:18)
[2018-12-23] MEDS: FAMOTIDINE 20 MG TABLET. PO SCH (21:18)
[2018-12-23] MEDS: INSULIN GLARGINE 300 UNITS/3 ML INSULN.PEN. SQ SCH (21:21)
[2018-12-23 22:33] LABS: BILIRUBIN,URINE NEGATIVE (NEG); CLARITY,URINE CLEAR; COLOR,URINE YELLOW; NITRITE,URINE NEGATIVE (NEG); PH,URINE 5.5; PROTEIN,URINE 100 mg/dL (NEG-TRACE); UROBILINOGEN,URINE 0.2 mg/dL (0.2 mg/dL)
[2018-12-23 22:40] LABS: AMORPHOUS SEDIMENT,UR PRESENT /HPF; BACTERIA,URINE FEW /HPF (0-FEW); RBC,URINE OCC /HPF (0-2); SQUAMOUS EPITHELIAL CELL,UR FEW /LPF; WBC,URINE OCC /HPF (0-4)
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
[2018-12-23 23:46] VITALS: BP 150/56
[2018-12-24 03:38] VITALS: BP 158/62
[2018-12-24 04:13] LABS: BASO # 0.1 x10^3/uL (0.0-0.2); BASO % 1 % (0-3); EOS # 0.2 x10^3/uL (0.0-0.7); EOS % 3 % (0-3); HEMATOCRIT 30.6 % (39.0-53.0); HEMOGLOBIN 9.5 g/dL (13.0-17.5); LYMPH # 1.1 x10^3/uL (1.0-4.8); LYMPH % 16 % (24-48); MEAN CORPUSCULAR HEMOGLOBIN 25 pg (25-35); MEAN CORPUSCULAR HGB CONC 31 g/dL (31-37); MEAN CORPUSCULAR VOLUME 81 fL (79-100); MONO % 14 % (0-9); NEUT # 4.6 x10^3uL (1.8-7.7); NEUT % 66 % (31-73); PLATELET COUNT 239 x10^3/uL (140-400); WHITE BLOOD COUNT 6.9 x10^3/uL (4.0-11.0)
[2018-12-24 04:41] LABS: ALBUMIN 2.6 g/dL (3.4-5.0); ALBUMIN/GLOBULIN RATIO 0.6 (1.0-1.7); CALCIUM 9.2 mg/dL (8.5-10.1); CREATININE 2.2 mg/dL (0.7-1.3); GFR 29.3; POTASSIUM 4.5 mmol/L (3.5-5.1); TOTAL BILIRUBIN 0.4 mg/dL (0.2-1.0); TOTAL PROTEIN 6.9 g/dL (6.4-8.2)
[2018-12-24] MEDS: PANTOPRAZOLE 40 MG TABLET.DR. PO SCH (06:02)
[2018-12-24] MEDS: FERROUS SULFATE 325 MG TABLET. PO SCH ×2 (06:02→16:25)
[2018-12-24] MEDS: LEVOTHYROXINE 88 MCG TABLET PO SCH (06:02)
[2018-12-24 07:25] VITALS: BP 139/54
--- NOTE | 2018-12-24 07:45 | NUR ---
Patient given juice to raise BS = 56, and rechecked until within normal.
[2018-12-24] MEDS: ASPIRIN CHEWABLE 81 MG TABLET. PO SCH (08:00)
[2018-12-24] MEDS: INSULIN LISPRO 300 UNITS/3 ML INSULN.PEN. SQ SCH ×4 (08:00→17:00)
--- NOTE | 2018-12-24 08:48 | NUR ---
SW following pt for anticipated dc needs. Chart reviewed. Pt is from home with family. PT/OT pending. SW will await for PT/OT recommendation to assess skilled needs.
[2018-12-24] MEDS: ATORVASTATIN CALCIUM 10 MG TABLET. PO SCH (09:30)
[2018-12-24] MEDS: CETIRIZINE HCL 10 MG TABLET. PO SCH (09:31)
[2018-12-24] MEDS: amLODIPine BESYLATE 10 MG TABLET PO SCH (09:31)
[2018-12-24] MEDS: METOPROLOL TART IMMED RELEASE 50 MG TABLET. PO SCH ×2 (09:32→21:24)
[2018-12-24] MEDS: hydroCHLOROthiazide 25 MG TABLET PO SCH (09:33)
[2018-12-24] MEDS: azaTHIOprine 50 MG TABLET PO SCH (09:33)
[2018-12-24] MEDS: predniSONE 5 MG TABLET PO SCH (09:34)
[2018-12-24] MEDS: HEPARIN for SUB-Q USE 5,000 UNIT/ML VIAL. SQ SCH ×2 (09:38→21:28)
[2018-12-24] MEDS: TACROLIMUS 0.5 MG CAPSULE PO SCH ×2 (10:47→21:23)
--- NOTE | 2018-12-24 10:47 | NUR ---
MEDICATION ARRIVED FROM PHARMACY & GIVEN AT THIS TIME: Tacrolimus / Prograf
[2018-12-24 11:01] VITALS: BP 148/58
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
--- NOTE | 2018-12-24 11:30 | NUR ---
Patient given juice to raise BS = 52, and rechecked until within normal.
--- NOTE | 2018-12-24 11:37 | PDOC ---
[employer] PROGRESS NOTE Chief Complaint Chief Complaint Acute on chronic systolic and diastolic heart failure Respiratory failure Stage IV chronic kidney disease Volume overload Diabetes Morbid obesity with a BMI of 54 Multiple comorbidities History of Present Illness History of Present Illness Patient seen and examined this morning with his nurse At first he didn't at did not want heparin, but we convinced him it might be good to prevent clots He is morbidly obese but pleasant and cooperative Vitals Vitals Vital Signs Date Time Temp Pulse Resp B/P (MAP) Pulse Ox O2 Delivery O2 Flow Rate FiO2 12/24/18 11:01 97.6 85 20 148/58 (88) 96 Nasal Cannula 2.0 97.6 Physical Exam General: Alert, Oriented X3, Cooperative, No acute distress Heart: Regular rate, Normal S1, Normal S2 Lungs: Crackles Abdomen: No tenderness, Other (obese with an umbilical hernia) Extremities: Other (right leg appears edematous) Skin: Other (he has typical skin breakdown associated with morbid obesity) Labs Labs: Laboratory Tests Test 12/23/18 13:46 12/23/18 14:05 12/23/18 15:10 12/23/18 20:44 Glucose (Fingerstick) 149 mg/dL (70-99) 160 mg/dL (70-99) White Blood Count 7.2 x10^3/uL (4.0-11.0) Red Blood Count 3.78 x10^6/uL (4.30-5.70) Hemoglobin 9.3 g/dL (13.0-17.5) Hematocrit 30.5 % (39.0-53.0) Mean Corpuscular Volume 81 fL (79-100) Mean Corpuscular Hemoglobin 25 pg (25-35) Mean Corpuscular Hemoglobin Concent 31 g/dL (31-37) Red Cell Distribution Width 17.0 % (11.5-14.5) Platelet Count 232 x10^3/uL (140-400) Neutrophils (%) (Auto) 81 % (31-73) Lymphocytes (%) (Auto) 9 % (24-48) Monocytes (%) (Auto) 8 % (0-9) Eosinophils (%) (Auto) 2 % (0-3) Basophils (%) (Auto) 1 % (0-3) Neutrophils # (Auto) 5.8 x10^3uL (1.8-7.7) Lymphocytes # (Auto) 0.6 x10^3/uL (1.0-4.8) Monocytes # (Auto) 0.6 x10^3/uL (0.0-1.1) Eosinophils # (Auto) 0.1 x10^3/uL (0.0-0.7) Basophils # (Auto) 0.1 x10^3/uL (0.0-0.2) Lactic Acid Level 1.8 mmol/L (0.4-2.0) Sodium Level 143 mmol/L (136-145) Potassium Level 4.4 mmol/L (3.5-5.1) Chloride Level 106 mmol/L (98-107) Carbon Dioxide Level 28 mmol/L (21-32) Anion Gap 9 (6-14) Blood Urea Nitrogen 18 mg/dL (8-26) Creatinine 2.2 mg/dL (0.7-1.3) Estimated GFR (Cockcroft-Gault) 29.3 BUN/Creatinine Ratio 8 (6-20) Glucose Level 134 mg/dL (70-99) Calcium Level 9.2 mg/dL (8.5-10.1) Total Bilirubin 0.4 mg/dL (0.2-1.0) Aspartate Amino Transf (AST/SGOT) 19 U/L (15-37) Alanine Aminotransferase (ALT/SGPT) 16 U/L (16-63) Alkaline Phosphatase 88 U/L (46-116) Troponin I Quantitative 0.042 ng/mL (0.000-0.055) YP-Pxb-K-Type Natriuretic Peptide 07799 pg/mL (0-449) Total Protein 7.4 g/dL (6.4-8.2) Albumin 2.8 g/dL (3.4-5.0) Albumin/Globulin Ratio 0.6 (1.0-1.7) Test 12/23/18 21:02 12/24/18 03:30 12/24/18 07:44 Urine Collection Type Unknown Urine Color Yellow Urine Clarity Clear Urine pH 5.5 Urine Specific [place] 1.015 Urine Protein 100 mg/dL (NEG-TRACE) Urine Glucose (UA) Negative mg/dL (NEG) Urine Ketones (Stick) Negative mg/dL (NEG) Urine Blood Negative (NEG) Urine Nitrite Negative (NEG) Urine Bilirubin Negative (NEG) Urine Urobilinogen Dipstick 0.2 mg/dL (0.2 mg/dL) Urine Leukocyte Esterase Negative (NEG) Urine RBC Occ /HPF (0-2) Urine WBC Occ /HPF (0-4) Urine Squamous Epithelial Cells Few /LPF Urine Amorphous Sediment Present /HPF Urine Bacteria Few /HPF (0-FEW) Urine Mucus Slight /LPF White Blood Count 6.9 x10^3/uL (4.0-11.0) Red Blood Count 3.80 x10^6/uL (4.30-5.70) Hemoglobin 9.5 g/dL (13.0-17.5) Hematocrit 30.6 % (39.0-53.0) Mean Corpuscular Volume 81 fL (79-100) Mean Corpuscular Hemoglobin 25 pg (25-35) Mean Corpuscular Hemoglobin Concent 31 g/dL (31-37) Red Cell Distribution Width 17.0 % (11.5-14.5) Platelet Count 239 x10^3/uL (140-400) Neutrophils (%) (Auto) 66 % (31-73) Lymphocytes (%) (Auto) 16 % (24-48) Monocytes (%) (Auto) 14 % (0-9) Eosinophils (%) (Auto) 3 % (0-3) Basophils (%) (Auto) 1 % (0-3) Neutrophils # (Auto) 4.6 x10^3uL (1.8-7.7) Lymphocytes # (Auto) 1.1 x10^3/uL (1.0-4.8) Monocytes # (Auto) 1.0 x10^3/uL (0.0-1.1) Eosinophils # (Auto) 0.2 x10^3/uL (0.0-0.7) Basophils # (Auto) 0.1 x10^3/uL (0.0-0.2) Sodium Level 144 mmol/L (136-145) Potassium Level 4.5 mmol/L (3.5-5.1) Chloride Level 108 mmol/L (98-107) Carbon Dioxide Level 30 mmol/L (21-32) Anion Gap 6 (6-14) Blood Urea Nitrogen 17 mg/dL (8-26) Creatinine 2.2 mg/dL (0.7-1.3) Estimated GFR (Cockcroft-Gault) 29.3 BUN/Creatinine Ratio 8 (6-20) Glucose Level 86 mg/dL (70-99) Calcium Level 9.2 mg/dL (8.5-10.1) Total Bilirubin 0.4 mg/dL (0.2-1.0) Aspartate Amino Transf (AST/SGOT) 20 U/L (15-37) Alanine Aminotransferase (ALT/SGPT) 14 U/L (16-63) Alkaline Phosphatase 83 U/L (46-116) Total Protein 6.9 g/dL (6.4-8.2) Albumin 2.6 g/dL (3.4-5.0) Albumin/Globulin Ratio 0.6 (1.0-1.7) Thyroid Stimulating Hormone (TSH) 4.518 uIU/mL (0.358-3.74) Glucose (Fingerstick) 56 mg/dL (70-99) Review of Systems Review of Systems Complains of weakness and shortness of breath Assessment and Plan Assessmemt and Plan Problems Medical Problems: (1) Dyspnea Status: Acute (2) Pulmonary edema Status: Acute Acute on chronic systolic and diastolic heart failure Stage IV kidney disease Diabetes CHF DM overload acute on chronic shortness of breath pleural effusion, recurrent DM2, on insulin renal transplant, cont immune mod therapy morbid obesity, BMI 54, with moderate hypoalbuminemia, malnutrition weakness, acquired Plan Consult nephrology pulmonary and cardiology IV Lasix if he can tolerate it and if he responds Frequent labs He might need antibiotics as well Duo nebs O2 per nasal cannula Home meds PT OT if possible DVT prophylaxis Full code Long-term prognosis guarded maybe even poor because of his morbid obesity and multiple comorbidities Comment Review of Relevant I have reviewed the following items buzz (where applicable) has been applied. Labs Laboratory Tests Test 12/23/18 13:46 12/23/18 14:05 12/23/18 15:10 12/23/18 20:44 Glucose (Fingerstick) 149 mg/dL (70-99) 160 mg/dL (70-99) White Blood Count 7.2 x10^3/uL (4.0-11.0) Red Blood Count 3.78 x10^6/uL (4.30-5.70) Hemoglobin 9.3 g/dL (13.0-17.5) Hematocrit 30.5 % (39.0-53.0) Mean Corpuscular Volume 81 fL (79-100) Mean Corpuscular Hemoglobin 25 pg (25-35) Mean Corpuscular Hemoglobin Concent 31 g/dL (31-37) Red Cell Distribution Width 17.0 % (11.5-14.5) Platelet Count 232 x10^3/uL (140-400) Neutrophils (%) (Auto) 81 % (31-73) Lymphocytes (%) (Auto) 9 % (24-48) Monocytes (%) (Auto) 8 % (0-9) Eosinophils (%) (Auto) 2 % (0-3) Basophils (%) (Auto) 1 % (0-3) Neutrophils # (Auto) 5.8 x10^3uL (1.8-7.7) Lymphocytes # (Auto) 0.6 x10^3/uL (1.0-4.8) Monocytes # (Auto) 0.6 x10^3/uL (0.0-1.1) Eosinophils # (Auto) 0.1 x10^3/uL (0.0-0.7) Basophils # (Auto) 0.1 x10^3/uL (0.0-0.2) Lactic Acid Level 1.8 mmol/L (0.4-2.0) Sodium Level 143 mmol/L (136-145) Potassium Level 4.4 mmol/L (3.5-5.1) Chloride Level 106 mmol/L (98-107) Carbon Dioxide Level 28 mmol/L (21-32) Anion Gap 9 (6-14) Blood Urea Nitrogen 18 mg/dL (8-26) Creatinine 2.2 mg/dL (0.7-1.3) Estimated GFR (Cockcroft-Gault) 29.3 BUN/Creatinine Ratio 8 (6-20) Glucose Level 134 mg/dL (70-99) Calcium Level 9.2 mg/dL (8.5-10.1) Total Bilirubin 0.4 mg/dL (0.2-1.0) Aspartate Amino Transf (AST/SGOT) 19 U/L (15-37) Alanine Aminotransferase (ALT/SGPT) 16 U/L (16-63) Alkaline Phosphatase 88 U/L (46-116) Troponin I Quantitative 0.042 ng/mL (0.000-0.055) ZL-Cnl-J-Type Natriuretic Peptide 06207 pg/mL (0-449) Total Protein 7.4 g/dL (6.4-8.2) Albumin 2.8 g/dL (3.4-5.0) Albumin/Globulin Ratio 0.6 (1.0-1.7) Test 12/23/18 21:02 12/24/18 03:30 12/24/18 07:44 Urine Collection Type Unknown Urine Color Yellow Urine Clarity Clear Urine pH 5.5 Urine Specific [place] 1.015 Urine Protein 100 mg/dL (NEG-TRACE) Urine Glucose (UA) Negative mg/dL (NEG) Urine Ketones (Stick) Negative mg/dL (NEG) Urine Blood Negative (NEG) Urine Nitrite Negative (NEG) Urine Bilirubin Negative (NEG) Urine Urobilinogen Dipstick 0.2 mg/dL (0.2 mg/dL) Urine Leukocyte Esterase Negative (NEG) Urine RBC Occ /HPF (0-2) Urine WBC Occ /HPF (0-4) Urine Squamous Epithelial Cells Few /LPF Urine Amorphous Sediment Present /HPF Urine Bacteria Few /HPF (0-FEW) Urine Mucus Slight /LPF White Blood Count 6.9 x10^3/uL (4.0-11.0) Red Blood Count 3.80 x10^6/uL (4.30-5.70) Hemoglobin 9.5 g/dL (13.0-17.5) Hematocrit 30.6 % (39.0-53.0) Mean Corpuscular Volume 81 fL (79-100) Mean Corpuscular Hemoglobin 25 pg (25-35) Mean Corpuscular Hemoglobin Concent 31 g/dL (31-37) Red Cell Distribution Width 17.0 % (11.5-14.5) Platelet Count 239 x10^3/uL (140-400) Neutrophils (%) (Auto) 66 % (31-73) Lymphocytes (%) (Auto) 16 % (24-48) Monocytes (%) (Auto) 14 % (0-9) Eosinophils (%) (Auto) 3 % (0-3) Basophils (%) (Auto) 1 % (0-3) Neutrophils # (Auto) 4.6 x10^3uL (1.8-7.7) Lymphocytes # (Auto) 1.1 x10^3/uL (1.0-4.8) Monocytes # (Auto) 1.0 x10^3/uL (0.0-1.1) Eosinophils # (Auto) 0.2 x10^3/uL (0.0-0.7) Basophils # (Auto) 0.1 x10^3/uL (0.0-0.2) Sodium Level 144 mmol/L (136-145) Potassium Level 4.5 mmol/L (3.5-5.1) Chloride Level 108 mmol/L (98-107) Carbon Dioxide Level 30 mmol/L (21-32) Anion Gap 6 (6-14) Blood Urea Nitrogen 17 mg/dL (8-26) Creatinine 2.2 mg/dL (0.7-1.3) Estimated GFR (Cockcroft-Gault) 29.3 BUN/Creatinine Ratio 8 (6-20) Glucose Level 86 mg/dL (70-99) Calcium Level 9.2 mg/dL (8.5-10.1) Total Bilirubin 0.4 mg/dL (0.2-1.0) Aspartate Amino Transf (AST/SGOT) 20 U/L (15-37) Alanine Aminotransferase (ALT/SGPT) 14 U/L (16-63) Alkaline Phosphatase 83 U/L (46-116) Total Protein 6.9 g/dL (6.4-8.2) Albumin 2.6 g/dL (3.4-5.0) Albumin/Globulin Ratio 0.6 (1.0-1.7) Thyroid Stimulating Hormone (TSH) 4.518 uIU/mL (0.358-3.74) Glucose (Fingerstick) 56 mg/dL (70-99) Laboratory Tests Test 12/23/18 13:46 12/23/18 14:05 12/23/18 15:10 12/23/18 20:44 Glucose (Fingerstick) 149 mg/dL (70-99) 160 mg/dL (70-99) White Blood Count 7.2 x10^3/uL (4.0-11.0) Red Blood Count 3.78 x10^6/uL (4.30-5.70) Hemoglobin 9.3 g/dL (13.0-17.5) Hematocrit 30.5 % (39.0-53.0) Mean Corpuscular Volume 81 fL (79-100) Mean Corpuscular Hemoglobin 25 pg (25-35) Mean Corpuscular Hemoglobin Concent 31 g/dL (31-37) Red Cell Distribution Width 17.0 % (11.5-14.5) Platelet Count 232 x10^3/uL (140-400) Neutrophils (%) (Auto) 81 % (31-73) Lymphocytes (%) (Auto) 9 % (24-48) Monocytes (%) (Auto) 8 % (0-9) Eosinophils (%) (Auto) 2 % (0-3) Basophils (%) (Auto) 1 % (0-3) Neutrophils # (Auto) 5.8 x10^3uL (1.8-7.7) Lymphocytes # (Auto) 0.6 x10^3/uL (1.0-4.8) Monocytes # (Auto) 0.6 x10^3/uL (0.0-1.1) Eosinophils # (Auto) 0.1 x10^3/uL (0.0-0.7) Basophils # (Auto) 0.1 x10^3/uL (0.0-0.2) Lactic Acid Level 1.8 mmol/L (0.4-2.0) Sodium Level 143 mmol/L (136-145) Potassium Level 4.4 mmol/L (3.5-5.1) Chloride Level 106 mmol/L (98-107) Carbon Dioxide Level 28 mmol/L (21-32) Anion Gap 9 (6-14) Blood Urea Nitrogen 18 mg/dL (8-26) Creatinine 2.2 mg/dL (0.7-1.3) Estimated GFR (Cockcroft-Gault) 29.3 BUN/Creatinine Ratio 8 (6-20) Glucose Level 134 mg/dL (70-99) Calcium Level 9.2 mg/dL (8.5-10.1) Total Bilirubin 0.4 mg/dL (0.2-1.0) Aspartate Amino Transf (AST/SGOT) 19 U/L (15-37) Alanine Aminotransferase (ALT/SGPT) 16 U/L (16-63) Alkaline Phosphatase 88 U/L (46-116) Troponin I Quantitative 0.042 ng/mL (0.000-0.055) RY-Khq-H-Type Natriuretic Peptide 14086 pg/mL (0-449) Total Protein 7.4 g/dL (6.4-8.2) Albumin 2.8 g/dL (3.4-5.0) Albumin/Globulin Ratio 0.6 (1.0-1.7) Test 12/23/18 21:02 12/24/18 03:30 12/24/18 07:44 Urine Collection Type Unknown Urine Color Yellow Urine Clarity Clear Urine pH 5.5 Urine Specific [place] 1.015 Urine Protein 100 mg/dL (NEG-TRACE) Urine Glucose (UA) Negative mg/dL (NEG) Urine Ketones (Stick) Negative mg/dL (NEG) Urine Blood Negative (NEG) Urine Nitrite Negative (NEG) Urine Bilirubin Negative (NEG) Urine Urobilinogen Dipstick 0.2 mg/dL (0.2 mg/dL) Urine Leukocyte Esterase Negative (NEG) Urine RBC Occ /HPF (0-2) Urine WBC Occ /HPF (0-4) Urine Squamous Epithelial Cells Few /LPF Urine Amorphous Sediment Present /HPF Urine Bacteria Few /HPF (0-FEW) Urine Mucus Slight /LPF White Blood Count 6.9 x10^3/uL (4.0-11.0) Red Blood Count 3.80 x10^6/uL (4.30-5.70) Hemoglobin 9.5 g/dL (13.0-17.5) Hematocrit 30.6 % (39.0-53.0) Mean Corpuscular Volume 81 fL (79-100) Mean Corpuscular Hemoglobin 25 pg (25-35) Mean Corpuscular Hemoglobin Concent 31 g/dL (31-37) Red Cell Distribution Width 17.0 % (11.5-14.5) Platelet Count 239 x10^3/uL (140-400) Neutrophils (%) (Auto) 66 % (31-73) Lymphocytes (%) (Auto) 16 % (24-48) Monocytes (%) (Auto) 14 % (0-9) Eosinophils (%) (Auto) 3 % (0-3) Basophils (%) (Auto) 1 % (0-3) Neutrophils # (Auto) 4.6 x10^3uL (1.8-7.7) Lymphocytes # (Auto) 1.1 x10^3/uL (1.0-4.8) Monocytes # (Auto) 1.0 x10^3/uL (0.0-1.1) Eosinophils # (Auto) 0.2 x10^3/uL (0.0-0.7) Basophils # (Auto) 0.1 x10^3/uL (0.0-0.2) Sodium Level 144 mmol/L (136-145) Potassium Level 4.5 mmol/L (3.5-5.1) Chloride Level 108 mmol/L (98-107) Carbon Dioxide Level 30 mmol/L (21-32) Anion Gap 6 (6-14) Blood Urea Nitrogen 17 mg/dL (8-26) Creatinine 2.2 mg/dL (0.7-1.3) Estimated GFR (Cockcroft-Gault) 29.3 BUN/Creatinine Ratio 8 (6-20) Glucose Level 86 mg/dL (70-99) Calcium Level 9.2 mg/dL (8.5-10.1) Total Bilirubin 0.4 mg/dL (0.2-1.0) Aspartate Amino Transf (AST/SGOT) 20 U/L (15-37) Alanine Aminotransferase (ALT/SGPT) 14 U/L (16-63) Alkaline Phosphatase 83 U/L (46-116) Total Protein 6.9 g/dL (6.4-8.2) Albumin 2.6 g/dL (3.4-5.0) Albumin/Globulin Ratio 0.6 (1.0-1.7) Thyroid Stimulating Hormone (TSH) 4.518 uIU/mL (0.358-3.74) Glucose (Fingerstick) 56 mg/dL (70-99) Medications Current Medications Amlodipine Besylate (Norvasc) 10 mg DAILY PO Last administered on 12/24/18at 09:31; Start 12/24/18 at 09:00 Aspirin (Children'S Aspirin) 81 mg DAILY08 PO ; Start 12/24/18 at 08:00 Atorvastatin Calcium (Lipitor) 10 mg DAILY PO Last administered on 12/24/18at 09:30; Start 12/24/18 at 09:00 Azathioprine (Imuran) 200 mg DAILY PO Last administered on 12/24/18at 09:33; Start 12/24/18 at 09:00 Docusate Sodium (Colace) 100 mg TID PRN PRN PO CONSTIPATION; Start 12/23/18 at 18:45 Famotidine (Pepcid) 20 mg HS PO Last administered on 12/23/18 21:18; Start 12/23/18 at 21:00 Ferrous Sulfate (Feosol) 325 mg BIDAC PO Last administered on 12/24/18 06:02; Start 12/24/18 at 07:30 Hydrochlorothiazide (Hydrodiuril) 25 mg DAILY PO Last administered on 12/24/18 09:33; Start 12/24/18 at 09:00 Levothyroxine Sodium (Synthroid) 88 mcg DAILY07 PO Last administered on 12/24/18 t 06:02; Start 12/24/18 at 07:00 Metoprolol Tartrate (Lopressor) 150 mg BID PO Last administered on 12/24/18 09:32; Start 12/23/18 at 21:00 Pantoprazole Sodium (Protonix) 40 mg DAILY07 PO Last administered on 12/24/18 06:02; Start 12/24/18 at 07:00 Prednisone (Prednisone) 5 mg DAILY PO Last administered on 12/24/18 09:34; Start 12/24/18 at 09:00 Haloperidol Lactate (HALDOL 2mg ORAL CONC) 0.25 mg PRN Q8HRS PRN PO ANXIETY / AGITATION; Start 12/23/18 at 19:00 Insulin Human Lispro (HumaLOG) 10 units DAILYWBKFT SQ ; Start 12/24/18 at 08:00 Insulin Human Lispro (HumaLOG) 18 units DAILYWLUN SQ ; Start 12/24/18 at 08:00 Insulin Human Lispro (HumaLOG) 22 units DAILYWSUP SQ ; Start 12/24/18 at 17:00 Insulin Glargine (Lantus) 70 units QHS SQ Last administered on 12/23/18 21:21; Start 12/23/18 at 21:00 Cetirizine HCl (ZyrTEC) 10 mg DAILY PO Last administered on 12/24/18 09:31; Start 12/24/18 at 09:00 Ondansetron HCl (Zofran Odt) 4 mg PRN Q8HRS PRN PO NAUSEA/VOMITING; Start 12/23/18 at 19:00 Tacrolimus (Prograf) 1 mg BID PO Last administered on 12/24/18at 10:47; Start 12/23/18 at 21:00 Heparin Sodium (Porcine) (Heparin Sodium) 5,000 unit BID SQ Last administered on 12/24/18at 09:38; Start 12/24/18 at 09:00 Active Scripts Active Keflex (Cephalexin) 500 Mg Capsule 500 Mg PO QID 5 Days Reported Amlodipine Besylate 5 Mg Tablet 10 Mg PO DAILY Docusate Sodium 100 Mg Capsule 1 Cap PO TID PRN PRN Ferrous Sulfate 325 Mg Tablet 1 Tab PO BIDAC Ondansetron Hcl 4 Mg Tablet 1 Tab PO PRN Q8HRS PRN Prednisone (Prednisone) 10 Mg Tablet 5 Mg PO DAILY Thiamine Hcl 100 Mg Tablet 100 Mg PO Pantoprazole Sodium 40 Mg Tablet.dr 1 Tab PO DAILY Tacrolimus 0.5 Mg Capsule 0.5 Mg PO DAILY Metoprolol Tartrate 50 Mg Tablet 3 Tab PO BID Novolog Flexpen (Insulin Aspart) 100 Unit/1 Ml Insuln.pen 22 Unit SQ AC SUPPER Novolog Flexpen (Insulin Aspart) 100 Unit/1 Ml Insuln.pen 18 Unit SQ AC LUNCH Novolog Flexpen (Insulin Aspart) 100 Unit/1 Ml Insuln.pen 10 Unit SQ AC BREAKFAST Levothyroxine Sodium 88 Mcg Tablet 1 Tab PO DAILY Atorvastatin Calcium 10 Mg Tablet 1 Tab PO DAILY Loratadine 10 Mg Tablet 1 Tab PO DAILY Hydrochlorothiazide Tablet (Hydrochlorothiazide) 25 Mg Tablet 25 Mg PO DAILY Pepcid Ac (Famotidine) 20 Mg Tablet 20 Mg PO HS Men's Multivitamin Gummies (Folic Acid/Multivit-Minerals) 200 Mcg Tab.chew 200 Mcg PO Lantus (Insulin Glargine,Hum.rec.anlog) 100 Unit/1 Ml Vial 70 Unit SQ QHS Alendronate Sodium 70 Mg Tablet 70 Mg PO WEEKLY Vitals/I & O Vital Sign - Last 24 Hours 12/23/18 12/23/18 12/23/18 12/23/18 13:46 16:03 17:20 18:20 Temp 97.7 97.7 Pulse 70 73 76 78 Resp 20 16 18 18 B/P (MAP) 147/68 (94) 182/68 (106) 184/75 (111) 187/84 (118) Pulse Ox 95 97 96 96 O2 Delivery Room Air Room Air Room Air Room Air 12/23/18 12/23/18 12/23/18 12/23/18 19:42 19:50 20:29 22:30 Temp 97.5 97.5 Pulse 78 89 Resp 20 B/P (MAP) 187/84 192/76 (114) Pulse Ox 92 O2 Delivery Room Air Nasal Cannula O2 Flow Rate 2.0 2.0 12/23/18 12/23/18 12/23/18 12/24/18 22:55 23:45 23:46 02:20 Temp 97.8 97.8 Pulse 65 Resp 24 B/P (MAP) 150/56 (87) Pulse Ox 100 O2 Delivery BiPAP/CPAP BiPAP/CPAP BiPAP/CPAP BiPAP/CPAP 12/24/18 12/24/18 12/24/18 12/24/18 03:38 07:25 09:31 09:32 Temp 98.3 97.5 98.3 97.5 Pulse 62 60 60 60 Resp 22 20 B/P (MAP) 158/62 (94) 139/54 (82) 139/54 139/54 Pulse Ox 99 100 O2 Delivery BiPAP/CPAP Nasal Cannula O2 Flow Rate 2.0 12/24/18 11:01 Temp 97.6 97.6 Pulse 85 Resp 20 B/P (MAP) 148/58 (88) Pulse Ox 96 O2 Delivery Nasal Cannula O2 Flow Rate 2.0 Intake and Output 12/23/18 12/23/18 12/24/18 15:00 23:00 07:00 Intake Total 480 ml 0 ml Output Total 200 ml Balance 280 ml 0 ml KASSIE COKER III DO Dec 24, 2018 11:37
--- NOTE | 2018-12-24 12:32 | PDOC2 ---
CARDIAC CONSULT DATE OF CONSULT Date of Consult DATE: 12/24/18 TIME: 12:25 REASON FOR CONSULT Reason for Consult: CHF REFERRING PHYSICIAN Referring Physician: Dr. Ibanez SOURCE Source: Chart review, Patient HISTORY OF PRESENT ILLNESS HISTORY OF PRESENT ILLNESS This is a 73 yo male who presented secondary to shortness of breath. Patient reports SOA has been presented for the last couple of weeks. Much worse over the last couple of days. Has also noticed worsening edema in LE. No dizziness, diaphoresis, chest pain, or nausea/vomiting. No recent illness/fevers. PAST MEDICAL HISTORY Cardiovascular: AFIB, HTN, Hyperlipidemia Pulmonary: Pneumonia, Other (BEVERLY) GI: GI bleed Renal/: Chronic renal insuff Endocrine: Diabetes, Hypothyroidism, Osteoporosis Dermatology: Melanoma, Other (skin CA) PAST SURGICAL HISTORY Past Surgical History: Other (renal transplant, left BKA) FAMILY HISTORY Family History: Diabetes SOCIAL HISTORY Smoke: No ALCOHOL: none Drugs: None Lives: with Family CURRENT MEDICATIONS CURRENT MEDICATIONS Current Medications Medications (Trade) Dose Ordered Sig/Ivett Route PRN Reason Start Time Stop Time Status Last Admin Dose Admin Amlodipine Besylate (Norvasc) 10 mg DAILY PO 12/24/18 09:00 12/24/18 09:31 Atorvastatin Calcium (Lipitor) 10 mg DAILY PO 12/24/18 09:00 12/24/18 09:30 Azathioprine (Imuran) 200 mg DAILY PO 12/24/18 09:00 12/24/18 09:33 Famotidine (Pepcid) 20 mg HS PO 12/23/18 21:00 12/23/18 21:18 Ferrous Sulfate (Feosol) 325 mg BIDAC PO 12/24/18 07:30 12/24/18 06:02 Hydrochlorothiazide (Hydrodiuril) 25 mg DAILY PO 12/24/18 09:00 12/24/18 09:33 Levothyroxine Sodium (Synthroid) 88 mcg DAILY07 PO 12/24/18 07:00 12/24/18 06:02 Metoprolol Tartrate (Lopressor) 150 mg BID PO 12/23/18 21:00 12/24/18 09:32 Pantoprazole Sodium (Protonix) 40 mg DAILY07 PO 12/24/18 07:00 12/24/18 06:02 Prednisone (Prednisone) 5 mg DAILY PO 12/24/18 09:00 12/24/18 09:34 Insulin Glargine (Lantus) 70 units QHS SQ 12/23/18 21:00 12/23/18 21:21 Cetirizine HCl (ZyrTEC) 10 mg DAILY PO 12/24/18 09:00 12/24/18 09:31 Tacrolimus (Prograf) 1 mg BID PO 12/23/18 21:00 12/24/18 10:47 Heparin Sodium (Porcine) (Heparin Sodium) 5,000 unit BID SQ 12/24/18 09:00 12/24/18 09:38 ALLERGIES ALLERGIES: Coded Allergies: No Known Drug Allergies (Unverified , 05/08/17) ROS Review of System 14 point ROS conducted with pertinent positives noted above in HPI. PHYSICAL EXAM General: Alert, Oriented X3, Cooperative, No acute distress HEENT: Atraumatic Lungs: Other (bibasilar crackles) Heart: Other (AFIB rate near 60, distant heart tones) Abdomen: Soft, Other (obese) Extremities: Other (left BKA, venous statis changes to RLE) Skin: No significant lesion Neuro: Normal speech, Sensation intact Psych/Mental Status: Mental status NL, Mood NL VITALS VITALS Vital Signs Date Time Temp Pulse Resp B/P (MAP) Pulse Ox O2 Delivery O2 Flow Rate FiO2 12/24/18 11:01 97.6 85 20 148/58 (88) 96 Nasal Cannula 2.0 97.6 LABS Lab: Laboratory Tests Test 12/23/18 13:46 12/23/18 14:05 12/23/18 15:10 12/23/18 20:44 Glucose (Fingerstick) 149 mg/dL (70-99) 160 mg/dL (70-99) White Blood Count 7.2 x10^3/uL (4.0-11.0) Red Blood Count 3.78 x10^6/uL (4.30-5.70) Hemoglobin 9.3 g/dL (13.0-17.5) Hematocrit 30.5 % (39.0-53.0) Mean Corpuscular Volume 81 fL (79-100) Mean Corpuscular Hemoglobin 25 pg (25-35) Mean Corpuscular Hemoglobin Concent 31 g/dL (31-37) Red Cell Distribution Width 17.0 % (11.5-14.5) Platelet Count 232 x10^3/uL (140-400) Neutrophils (%) (Auto) 81 % (31-73) Lymphocytes (%) (Auto) 9 % (24-48) Monocytes (%) (Auto) 8 % (0-9) Eosinophils (%) (Auto) 2 % (0-3) Basophils (%) (Auto) 1 % (0-3) Neutrophils # (Auto) 5.8 x10^3uL (1.8-7.7) Lymphocytes # (Auto) 0.6 x10^3/uL (1.0-4.8) Monocytes # (Auto) 0.6 x10^3/uL (0.0-1.1) Eosinophils # (Auto) 0.1 x10^3/uL (0.0-0.7) Basophils # (Auto) 0.1 x10^3/uL (0.0-0.2) Lactic Acid Level 1.8 mmol/L (0.4-2.0) Sodium Level 143 mmol/L (136-145) Potassium Level 4.4 mmol/L (3.5-5.1) Chloride Level 106 mmol/L (98-107) Carbon Dioxide Level 28 mmol/L (21-32) Anion Gap 9 (6-14) Blood Urea Nitrogen 18 mg/dL (8-26) Creatinine 2.2 mg/dL (0.7-1.3) Estimated GFR (Cockcroft-Gault) 29.3 BUN/Creatinine Ratio 8 (6-20) Glucose Level 134 mg/dL (70-99) Calcium Level 9.2 mg/dL (8.5-10.1) Total Bilirubin 0.4 mg/dL (0.2-1.0) Aspartate Amino Transf (AST/SGOT) 19 U/L (15-37) Alanine Aminotransferase (ALT/SGPT) 16 U/L (16-63) Alkaline Phosphatase 88 U/L (46-116) Troponin I Quantitative 0.042 ng/mL (0.000-0.055) CH-Tgc-V-Type Natriuretic Peptide 81314 pg/mL (0-449) Total Protein 7.4 g/dL (6.4-8.2) Albumin 2.8 g/dL (3.4-5.0) Albumin/Globulin Ratio 0.6 (1.0-1.7) Test 12/23/18 21:02 12/24/18 03:30 12/24/18 07:44 12/24/18 11:45 Urine Collection Type Unknown Urine Color Yellow Urine Clarity Clear Urine pH 5.5 Urine Specific [place] 1.015 Urine Protein 100 mg/dL (NEG-TRACE) Urine Glucose (UA) Negative mg/dL (NEG) Urine Ketones (Stick) Negative mg/dL (NEG) Urine Blood Negative (NEG) Urine Nitrite Negative (NEG) Urine Bilirubin Negative (NEG) Urine Urobilinogen Dipstick 0.2 mg/dL (0.2 mg/dL) Urine Leukocyte Esterase Negative (NEG) Urine RBC Occ /HPF (0-2) Urine WBC Occ /HPF (0-4) Urine Squamous Epithelial Cells Few /LPF Urine Amorphous Sediment Present /HPF Urine Bacteria Few /HPF (0-FEW) Urine Mucus Slight /LPF White Blood Count 6.9 x10^3/uL (4.0-11.0) Red Blood Count 3.80 x10^6/uL (4.30-5.70) Hemoglobin 9.5 g/dL (13.0-17.5) Hematocrit 30.6 % (39.0-53.0) Mean Corpuscular Volume 81 fL (79-100) Mean Corpuscular Hemoglobin 25 pg (25-35) Mean Corpuscular Hemoglobin Concent 31 g/dL (31-37) Red Cell Distribution Width 17.0 % (11.5-14.5) Platelet Count 239 x10^3/uL (140-400) Neutrophils (%) (Auto) 66 % (31-73) Lymphocytes (%) (Auto) 16 % (24-48) Monocytes (%) (Auto) 14 % (0-9) Eosinophils (%) (Auto) 3 % (0-3) Basophils (%) (Auto) 1 % (0-3) Neutrophils # (Auto) 4.6 x10^3uL (1.8-7.7) Lymphocytes # (Auto) 1.1 x10^3/uL (1.0-4.8) Monocytes # (Auto) 1.0 x10^3/uL (0.0-1.1) Eosinophils # (Auto) 0.2 x10^3/uL (0.0-0.7) Basophils # (Auto) 0.1 x10^3/uL (0.0-0.2) Sodium Level 144 mmol/L (136-145) Potassium Level 4.5 mmol/L (3.5-5.1) Chloride Level 108 mmol/L (98-107) Carbon Dioxide Level 30 mmol/L (21-32) Anion Gap 6 (6-14) Blood Urea Nitrogen 17 mg/dL (8-26) Creatinine 2.2 mg/dL (0.7-1.3) Estimated GFR (Cockcroft-Gault) 29.3 BUN/Creatinine Ratio 8 (6-20) Glucose Level 86 mg/dL (70-99) Calcium Level 9.2 mg/dL (8.5-10.1) Total Bilirubin 0.4 mg/dL (0.2-1.0) Aspartate Amino Transf (AST/SGOT) 20 U/L (15-37) Alanine Aminotransferase (ALT/SGPT) 14 U/L (16-63) Alkaline Phosphatase 83 U/L (46-116) Total Protein 6.9 g/dL (6.4-8.2) Albumin 2.6 g/dL (3.4-5.0) Albumin/Globulin Ratio 0.6 (1.0-1.7) Thyroid Stimulating Hormone (TSH) 4.518 uIU/mL (0.358-3.74) Glucose (Fingerstick) 56 mg/dL (70-99) 52 mg/dL (70-99) ECHOCARDIOGRAM ECHOCARDIOGRAM <Conclusion> The left ventricular systolic function is normal. The Ejection Fraction is 55-60%. There is normal LV segmental wall motion. Moderate aortic regurgitation. Trace mitral regurgitation. Mild tricuspid regurgitation. The PA pressure was estimated at 52 mmHg. There is no evidence of significant pericardial effusion. DATE: 06/22/17 1328 Echo at 09/12/18 Mild to moderate LV systolic dysfunction with LVEF ~= 40-45% Left ventricular wall motion abnormalities are present: thinning and dyskinesis of the mid-anteroseptal and -inferoseptal, and apical septal segments Normal right ventricular size with mildly reduced systolic function Mild right atrial dilation Mildly elevated estimated PA systolic pressure of 33 mmHg Markedly elevated CVP of >15 mmHg Large left pleural effusion noted Irregular underlying rhythm, likely atrial fibrillation Compared to the prior transthoracic echocardiogram 10/24/2017, left and right ventricular systolic function has worsened. Abnormal septal motion was present on the previous study, but thickening was preserved suggestive of left bundle branch block (as opposed to the dyskinetic distal/apical septal motion seen currently). ASSESSMENT/PLAN ASSESSMENT/PLAN 1. Acute respiratory failure; multifactorial 2. Acute on chronic systolic HF; CXR with vascualr congestion., 3. Cardiomyopathy; Echo at [facility] 08/2018 LVEF 40-45% 4. PAFIB; ASA for stroke prevention. Recent GI bleed at [facility] 08/2018 5. Bradycardia; lowest 36. Monitor on BB 6. Hypertension; mildly elevated 7. Hyperlipidemia; statin 8. Diabetes, II 9. CKD s/p real transplant; on Prograf 10. PAD s/p left BKA 11. Morbid obesity, BEVERLY with CPAP Recommendations Diuresis with monitoring of renal function Follow renal recs Echo to assess LV systolic function Secondary prevention; ASA, statin, BB Decrease metoprolol given bradycardia. ASA for stroke prevention; GI bleed 08/2018 Supportive care SONJA MINAAY APRN Dec 24, 2018 12:32
--- NOTE | 2018-12-24 15:10 | PDOC ---
PULMONARY PROGRESS NOTES Vitals Vital Signs Date Time Temp Pulse Resp B/P (MAP) Pulse Ox O2 Delivery O2 Flow Rate FiO2 12/24/18 11:01 97.6 85 20 148/58 (88) 96 Nasal Cannula 2.0 97.6 General: Alert, No acute distress Lungs: Crackles Cardiovascular: S1, S2 Abdomen: Soft, Other Extremities: Other Labs Laboratory Tests Test 12/23/18 13:46 12/23/18 14:05 12/23/18 15:10 12/23/18 20:44 Glucose (Fingerstick) 149 mg/dL (70-99) 160 mg/dL (70-99) White Blood Count 7.2 x10^3/uL (4.0-11.0) Red Blood Count 3.78 x10^6/uL (4.30-5.70) Hemoglobin 9.3 g/dL (13.0-17.5) Hematocrit 30.5 % (39.0-53.0) Mean Corpuscular Volume 81 fL (79-100) Mean Corpuscular Hemoglobin 25 pg (25-35) Mean Corpuscular Hemoglobin Concent 31 g/dL (31-37) Red Cell Distribution Width 17.0 % (11.5-14.5) Platelet Count 232 x10^3/uL (140-400) Neutrophils (%) (Auto) 81 % (31-73) Lymphocytes (%) (Auto) 9 % (24-48) Monocytes (%) (Auto) 8 % (0-9) Eosinophils (%) (Auto) 2 % (0-3) Basophils (%) (Auto) 1 % (0-3) Neutrophils # (Auto) 5.8 x10^3uL (1.8-7.7) Lymphocytes # (Auto) 0.6 x10^3/uL (1.0-4.8) Monocytes # (Auto) 0.6 x10^3/uL (0.0-1.1) Eosinophils # (Auto) 0.1 x10^3/uL (0.0-0.7) Basophils # (Auto) 0.1 x10^3/uL (0.0-0.2) Lactic Acid Level 1.8 mmol/L (0.4-2.0) Sodium Level 143 mmol/L (136-145) Potassium Level 4.4 mmol/L (3.5-5.1) Chloride Level 106 mmol/L (98-107) Carbon Dioxide Level 28 mmol/L (21-32) Anion Gap 9 (6-14) Blood Urea Nitrogen 18 mg/dL (8-26) Creatinine 2.2 mg/dL (0.7-1.3) Estimated GFR (Cockcroft-Gault) 29.3 BUN/Creatinine Ratio 8 (6-20) Glucose Level 134 mg/dL (70-99) Calcium Level 9.2 mg/dL (8.5-10.1) Total Bilirubin 0.4 mg/dL (0.2-1.0) Aspartate Amino Transf (AST/SGOT) 19 U/L (15-37) Alanine Aminotransferase (ALT/SGPT) 16 U/L (16-63) Alkaline Phosphatase 88 U/L (46-116) Troponin I Quantitative 0.042 ng/mL (0.000-0.055) IE-Psb-H-Type Natriuretic Peptide 43988 pg/mL (0-449) Total Protein 7.4 g/dL (6.4-8.2) Albumin 2.8 g/dL (3.4-5.0) Albumin/Globulin Ratio 0.6 (1.0-1.7) Test 12/23/18 21:02 12/24/18 03:30 12/24/18 07:44 12/24/18 11:45 Urine Collection Type Unknown Urine Color Yellow Urine Clarity Clear Urine pH 5.5 Urine Specific [place] 1.015 Urine Protein 100 mg/dL (NEG-TRACE) Urine Glucose (UA) Negative mg/dL (NEG) Urine Ketones (Stick) Negative mg/dL (NEG) Urine Blood Negative (NEG) Urine Nitrite Negative (NEG) Urine Bilirubin Negative (NEG) Urine Urobilinogen Dipstick 0.2 mg/dL (0.2 mg/dL) Urine Leukocyte Esterase Negative (NEG) Urine RBC Occ /HPF (0-2) Urine WBC Occ /HPF (0-4) Urine Squamous Epithelial Cells Few /LPF Urine Amorphous Sediment Present /HPF Urine Bacteria Few /HPF (0-FEW) Urine Mucus Slight /LPF White Blood Count 6.9 x10^3/uL (4.0-11.0) Red Blood Count 3.80 x10^6/uL (4.30-5.70) Hemoglobin 9.5 g/dL (13.0-17.5) Hematocrit 30.6 % (39.0-53.0) Mean Corpuscular Volume 81 fL (79-100) Mean Corpuscular Hemoglobin 25 pg (25-35) Mean Corpuscular Hemoglobin Concent 31 g/dL (31-37) Red Cell Distribution Width 17.0 % (11.5-14.5) Platelet Count 239 x10^3/uL (140-400) Neutrophils (%) (Auto) 66 % (31-73) Lymphocytes (%) (Auto) 16 % (24-48) Monocytes (%) (Auto) 14 % (0-9) Eosinophils (%) (Auto) 3 % (0-3) Basophils (%) (Auto) 1 % (0-3) Neutrophils # (Auto) 4.6 x10^3uL (1.8-7.7) Lymphocytes # (Auto) 1.1 x10^3/uL (1.0-4.8) Monocytes # (Auto) 1.0 x10^3/uL (0.0-1.1) Eosinophils # (Auto) 0.2 x10^3/uL (0.0-0.7) Basophils # (Auto) 0.1 x10^3/uL (0.0-0.2) Sodium Level 144 mmol/L (136-145) Potassium Level 4.5 mmol/L (3.5-5.1) Chloride Level 108 mmol/L (98-107) Carbon Dioxide Level 30 mmol/L (21-32) Anion Gap 6 (6-14) Blood Urea Nitrogen 17 mg/dL (8-26) Creatinine 2.2 mg/dL (0.7-1.3) Estimated GFR (Cockcroft-Gault) 29.3 BUN/Creatinine Ratio 8 (6-20) Glucose Level 86 mg/dL (70-99) Calcium Level 9.2 mg/dL (8.5-10.1) Total Bilirubin 0.4 mg/dL (0.2-1.0) Aspartate Amino Transf (AST/SGOT) 20 U/L (15-37) Alanine Aminotransferase (ALT/SGPT) 14 U/L (16-63) Alkaline Phosphatase 83 U/L (46-116) Total Protein 6.9 g/dL (6.4-8.2) Albumin 2.6 g/dL (3.4-5.0) Albumin/Globulin Ratio 0.6 (1.0-1.7) Thyroid Stimulating Hormone (TSH) 4.518 uIU/mL (0.358-3.74) Glucose (Fingerstick) 56 mg/dL (70-99) 52 mg/dL (70-99) Test 12/24/18 13:43 Glucose (Fingerstick) 84 mg/dL (70-99) Laboratory Tests Test 12/23/18 15:10 12/23/18 20:44 12/23/18 21:02 12/24/18 03:30 Sodium Level 143 mmol/L (136-145) 144 mmol/L (136-145) Potassium Level 4.4 mmol/L (3.5-5.1) 4.5 mmol/L (3.5-5.1) Chloride Level 106 mmol/L (98-107) 108 mmol/L (98-107) Carbon Dioxide Level 28 mmol/L (21-32) 30 mmol/L (21-32) Anion Gap 9 (6-14) 6 (6-14) Blood Urea Nitrogen 18 mg/dL (8-26) 17 mg/dL (8-26) Creatinine 2.2 mg/dL (0.7-1.3) 2.2 mg/dL (0.7-1.3) Estimated GFR (Cockcroft-Gault) 29.3 29.3 BUN/Creatinine Ratio 8 (6-20) 8 (6-20) Glucose Level 134 mg/dL (70-99) 86 mg/dL (70-99) Calcium Level 9.2 mg/dL (8.5-10.1) 9.2 mg/dL (8.5-10.1) Total Bilirubin 0.4 mg/dL (0.2-1.0) 0.4 mg/dL (0.2-1.0) Aspartate Amino Transf (AST/SGOT) 19 U/L (15-37) 20 U/L (15-37) Alanine Aminotransferase (ALT/SGPT) 16 U/L (16-63) 14 U/L (16-63) Alkaline Phosphatase 88 U/L (46-116) 83 U/L (46-116) Troponin I Quantitative 0.042 ng/mL (0.000-0.055) PN-Jjw-O-Type Natriuretic Peptide 18429 pg/mL (0-449) Total Protein 7.4 g/dL (6.4-8.2) 6.9 g/dL (6.4-8.2) Albumin 2.8 g/dL (3.4-5.0) 2.6 g/dL (3.4-5.0) Albumin/Globulin Ratio 0.6 (1.0-1.7) 0.6 (1.0-1.7) Glucose (Fingerstick) 160 mg/dL (70-99) Urine Collection Type Unknown Urine Color Yellow Urine Clarity Clear Urine pH 5.5 Urine Specific [place] 1.015 Urine Protein 100 mg/dL (NEG-TRACE) Urine Glucose (UA) Negative mg/dL (NEG) Urine Ketones (Stick) Negative mg/dL (NEG) Urine Blood Negative (NEG) Urine Nitrite Negative (NEG) Urine Bilirubin Negative (NEG) Urine Urobilinogen Dipstick 0.2 mg/dL (0.2 mg/dL) Urine Leukocyte Esterase Negative (NEG) Urine RBC Occ /HPF (0-2) Urine WBC Occ /HPF (0-4) Urine Squamous Epithelial Cells Few /LPF Urine Amorphous Sediment Present /HPF Urine Bacteria Few /HPF (0-FEW) Urine Mucus Slight /LPF White Blood Count 6.9 x10^3/uL (4.0-11.0) Red Blood Count 3.80 x10^6/uL (4.30-5.70) Hemoglobin 9.5 g/dL (13.0-17.5) Hematocrit 30.6 % (39.0-53.0) Mean Corpuscular Volume 81 fL (79-100) Mean Corpuscular Hemoglobin 25 pg (25-35) Mean Corpuscular Hemoglobin Concent 31 g/dL (31-37) Red Cell Distribution Width 17.0 % (11.5-14.5) Platelet Count 239 x10^3/uL (140-400) Neutrophils (%) (Auto) 66 % (31-73) Lymphocytes (%) (Auto) 16 % (24-48) Monocytes (%) (Auto) 14 % (0-9) Eosinophils (%) (Auto) 3 % (0-3) Basophils (%) (Auto) 1 % (0-3) Neutrophils # (Auto) 4.6 x10^3uL (1.8-7.7) Lymphocytes # (Auto) 1.1 x10^3/uL (1.0-4.8) Monocytes # (Auto) 1.0 x10^3/uL (0.0-1.1) Eosinophils # (Auto) 0.2 x10^3/uL (0.0-0.7) Basophils # (Auto) 0.1 x10^3/uL (0.0-0.2) Thyroid Stimulating Hormone (TSH) 4.518 uIU/mL (0.358-3.74) Test 12/24/18 07:44 12/24/18 11:45 12/24/18 13:43 Glucose (Fingerstick) 56 mg/dL (70-99) 52 mg/dL (70-99) 84 mg/dL (70-99) Medications Active Scripts Medications Dose Route/Sig Max Daily Dose Days Date Category Amlodipine Besylate 5 Mg Tablet 10 Mg PO DAILY 06/22/17 Reported Docusate Sodium 100 Mg Capsule 1 Cap PO TID PRN PRN 06/22/17 Reported Ferrous Sulfate 325 Mg Tablet 1 Tab PO BIDAC 06/22/17 Reported Ondansetron Hcl 4 Mg Tablet 1 Tab PO PRN Q8HRS PRN 06/22/17 Reported Prednisone (Prednisone) 10 Mg Tablet 5 Mg PO DAILY 06/22/17 Reported Thiamine Hcl 100 Mg Tablet 100 Mg PO 06/22/17 Reported Pantoprazole Sodium 40 Mg Tablet.dr 1 Tab PO DAILY 06/22/17 Reported Tacrolimus 0.5 Mg Capsule 0.5 Mg PO DAILY 06/22/17 Reported Metoprolol Tartrate 50 Mg Tablet 3 Tab PO BID 06/22/17 Reported Keflex (Cephalexin) 500 Mg Capsule 500 Mg PO QID 5 06/30/15 Rx Novolog Flexpen (Insulin Aspart) 100 Unit/1 Ml Insuln.pen 22 Unit SQ AC SUPPER 06/26/15 Reported Novolog Flexpen (Insulin Aspart) 100 Unit/1 Ml Insuln.pen 18 Unit SQ AC LUNCH 06/26/15 Reported Novolog Flexpen (Insulin Aspart) 100 Unit/1 Ml Insuln.pen 10 Unit SQ AC BREAKFAST 06/26/15 Reported Levothyroxine Sodium 88 Mcg Tablet 1 Tab PO DAILY 06/24/15 Reported Atorvastatin Calcium 10 Mg Tablet 1 Tab PO DAILY 06/24/15 Reported Loratadine 10 Mg Tablet 1 Tab PO DAILY 06/24/15 Reported Hydrochlorothiazide Tablet (Hydrochlorothiazide) 25 Mg Tablet 25 Mg PO DAILY 06/24/15 Reported Pepcid Ac (Famotidine) 20 Mg Tablet 20 Mg PO HS 06/24/15 Reported Men's Multivitamin Gummies (Folic Acid/Multivit-Minerals) 200 Mcg Tab.chew 200 Mcg PO 06/24/15 Reported Lantus (Insulin Glargine,Hum.rec.anlog) 100 Unit/1 Ml Vial 70 Unit SQ QHS 06/24/15 Reported Alendronate Sodium 70 Mg Tablet 70 Mg PO WEEKLY 06/24/15 Reported Impression . NOTE DICTATED I THINK THIS IS MOSTLY HEART FAILURE NOT ENOUGH EFFUSION TO WARRENT THORACENTESIS SHARATH AVLLE MD Dec 24, 2018 15:10
[2018-12-24 15:19] VITALS: BP 142/50
--- NOTE | 2018-12-24 15:53 | NUR ---
Wound Care: Consult to eval and treat for open wound to coccyx. ST III pressure wound to midline coccyx cleansed and dressed with hydrocolloid and foam dressing, to be changed every 2-3 days. Picture and measurements from admission in chart. No other open areas noted on head to toe inspection. Pt on bariatric ARIAN mattress, able to self turn. Education provided regarding prevention of skin breakdown. Nystatin applied to abdominal and groin folds.
[2018-12-24] MEDS ORDERED: FUROSEMIDE 40 MG/4 ML VIAL. IVP ONE (16:00)
--- NOTE | 2018-12-24 16:51 | CARD ---
MR#: [id number] Date of Study: 12/24/2018 Ordering Physician: SONJA MINAYA, Referring Physician: DEENA LUNDBERG Tech: Monique Stover RDCS APPROVED REPORT EXAM: Two-dimensional and M-mode echocardiogram with Doppler and color Doppler. Other Information Quality : Technically LimitedHR: 55bpm Rhythm : BradycardiaTechnically limited study due to body habitus. INDICATION Congestive Heart Failure 2D DIMENSIONS RVDd3.8 (2.9-3.5cm)Left Atrium(2D)4.9 (1.6-4.0cm) IVSd1.3 (0.7-1.1cm)Aortic Root(2D)3.5 (2.0-3.7cm) LVDd5.7 (3.9-5.9cm)LVOT Diameter2.2 (1.8-2.4cm) PWd1.0 (0.7-1.1cm)LVDs4.4 (2.5-4.0cm) FS (%) 23.2 %SV72.6 ml M-Mode DIMENSIONS Left Atrium(MM)4.35 (2.5-4.0cm)Aortic Root3.26 (2.2-3.7cm) Aortic Valve AoV Peak Rickey.135.9cm/sAoV VTI32.5cm AO Peak GR.7.4mmHgLVOT VTI 18.31cm AO Mean GR.4mmHgAVA (VTI)2.20cm2 AI P 1/2 [id number] Mitral Valve MV E Nrgcuttm129.2cm/sMV E Peak Gr.58mmHg MV DECEL [id number] A Zehafyvp31.2cm/s MV E Mean Gr.3mmHgE/A Ratio4.9 MV A [id number] Tricuspid Valve TR P. [id number] [id number] TR Peak Gr.[id number] LEFT VENTRICLE The left ventricle is normal size. There is mild concentric left ventricular hypertrophy. Left ventri willy systolic function is mildly impaired. The Ejection Fraction is 40-45%. There is hypokinesis in th e apical septal wall. Transmitral Doppler flow pattern is Grade III-reversible restrictive diastolic dysfunction. RIGHT VENTRICLE The right ventricle is normal size. There is normal right ventricular wall thickness. Systolic functi on is borderline reduced. ATRIA The left atrium is mildly dilated. The right atrium is mildly dilated. The interatrial septum is inta ct with no evidence for an atrial septal defect or patent foramen ovale as noted on 2-D or Doppler im aging. AORTIC VALVE The aortic valve is mildly calcified. The aortic valve is trileaflet. Doppler and Color Flow revealed mild to moderate aortic regurgitation. There is no significant aortic valvular stenosis. MITRAL VALVE Mitral annular calcification is mild to moderate. There is no evidence of mitral valve prolapse. Ther e is no mitral valve stenosis. Doppler and Color-flow revealed trace mitral regurgitation. TRICUSPID VALVE The tricuspid valve is normal in structure and function. Doppler and Color Flow revealed trace tricus pid regurgitation. The PA pressure was estimated at 34 mmHg. There is no tricuspid valve prolapse or vegetation. There is no tricuspid valve stenosis. PULMONIC VALVE The pulmonic valve is not well visualized. GREAT VESSELS The aortic root is normal in size. The ascending aorta is normal in size. The IVC is normal in size a nd collapses >50% with inspiration. PERICARDIAL EFFUSION There is no evidence of significant pericardial effusion. Critical Notification Critical Value: No <Conclusion> The left ventricle is normal size. Left ventricle systolic function is mildly impaired. The Ejection Fraction is 40-45%. There is hypokinesis in the apical septal wall. There is mild concentric left ventricular hypertrophy. There is no significant aortic valvular stenosis. Doppler and Color Flow revealed mild to moderate aortic regurgitation. Doppler and Color-flow revealed trace mitral regurgitation. Doppler and Color Flow revealed trace tricuspid regurgitation. The PA pressure was estimated at 34 mmHg. Signed by : Stefano Myrick MD Electronically Approved : 12/24/2018 16:51:06
--- NOTE | 2018-12-24 17:02 | NUR ---
Patient given juice to raise BS = 40, and rechecked until within normal.
[2018-12-24 19:21] VITALS: BP 131/51
[2018-12-24] MEDS ORDERED: SEVE800T9 PO (20:43)
[2018-12-24] MEDS: NYSTATIN TOPICAL POWDER 15GM BOTTLE. TP SCH (21:00)
[2018-12-24] MEDS: INSULIN GLARGINE 300 UNITS/3 ML INSULN.PEN. SQ SCH (21:00)
[2018-12-24] MEDS: FAMOTIDINE 20 MG TABLET. PO SCH (21:23)
[2018-12-24 23:18] VITALS: BP 148/55
[2018-12-25 00:10] LABS: HEMOGLOBIN A1C 5.5 % (4.8-5.6)
[2018-12-25 01:00] LABS: CHOLESTEROL/HDL RATIO 2.5
[2018-12-25 03:48] VITALS: BP 131/59
--- NOTE | 2018-12-25 04:14 | CONS ---
DATE OF CONSULTATION: 12/24/2018 ATTENDING PHYSICIAN: Jessica Mcgarry MD. REASON FOR CONSULTATION: The patient seen in pulmonary consultation at the request of Dr. Mcgarry for abnormal x-ray. HISTORY OF PRESENT ILLNESS: The patient is a 73-year-old with multiple comorbidities. He has been chronically ill for some time. He was actually in the hospital for approximately 3 months back in 2016. At that time, the patient was doing poorly as a consequence of hypercapnic respiratory failure. He had other comorbidities. 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 Eventually, he improved. He went to [facility]. Several weeks ago, he was readmitted at [facility]. Several months ago back in August, he had the flu. He also had respiratory complications and intubated. He actually had code blue and had CPR. He was eventually discharged. The patient presented to the Emergency Room for increasing shortness of breath over the last 2-3 days. He normally does not wear oxygen at home. He does wear CPAP. He has been more short of breath for the past 2 weeks. He has noticed that he had some paroxysmal nocturnal dyspnea. He has had a previous left-sided amputation. His right leg did not swell. When he presented, he had bilateral infiltrates on x-ray with some small effusion, left greater than right. I was asked to see him in auscultation. He denies any acute onset of shortness of breath associated with pleurisy. No syncope or near syncopal episode. He normally does not take furosemide at home. SOCIAL HISTORY: The patient does not smoke. He has never smoked. FAMILY HISTORY: No family history of lung disorders. PAST SURGICAL HISTORY: Left leg amputation. He has had previous kidney transplant. His medication list was reviewed. HOME MEDICATIONS: List included multiple medications, he was on hydrochlorothiazide. He was also on prednisone, insulin, tacrolimus and other meds. ALLERGIES: No known drug allergies. CURRENT MEDICATION: List was reviewed. REVIEW OF SYSTEMS: CONSTITUTIONAL: Reported some fever, but never checked his temperature. EYES: No change in visual acuity. HEENT: No nasal congestion or sore throat. PULMONARY: As indicated above. CARDIOVASCULAR: No chest pain. No pressure. GASTROINTESTINAL: No nausea, vomiting, diarrhea. GENITOURINARY: No dysuria or frequency. MUSCULOSKELETAL: No new muscle aches or joint pains. SKIN: No new skin rashes. NEUROLOGIC: No headaches, diplopia or blurred vision. PHYSICAL EXAMINATION: VITAL SIGNS: Stable. O2 saturation was greater than 92%. GENERAL: Morbidly obese individual, body mass index of 41, O2 saturation on 2 liters was greater than 92%. He has been afebrile since admission. HEENT: Eyes, the sclerae were nonicteric. NECK: Jugular venous distention was not elevated. No lymphadenopathy. CHEST: Full expansion. LUNGS: Crackles in the bases. No wheezes. CARDIOVASCULAR: Regular rate and rhythm with S1, S2, no S3. ABDOMEN: Soft, obese. EXTREMITIES: Evidence of previous left-sided amputation, some edema on the right. NEUROLOGIC: The patient was awake, alert, following commands. A detailed neuro exam was not performed. LABORATORY DATA: Reviewed. Electrolytes were noted. BUN and creatinine were normal. Chest x-ray was reviewed as indicated above, bilateral infiltrates with bilateral effusions. IMPRESSION: 1. Acute hypoxemic respiratory failure. 2. Acute on chronic diastolic heart failure. 3. Abnormal x-ray revealing small bilateral effusions. 4. Suspect severe secondary pulmonary hypertension. 5. Morbid obesity. 6. Obstructive sleep apnea. 7. Chronic lower extremity lymphedema. 8. End-stage renal disease, status post renal transplant. PLAN: 1. Recommend diuresis. 2. CPAP. 3. Consult Cardiology, already performed. 4. Consult Nephrology. 5. No need for antibiotics at this time. 6. We will follow along and make further recommendations. I do appreciate the privilege in sharing the patient's care. SHARATH VALLE MD DR: GRAZYNA/miriam JOB#: [id number] / [id number]
[2018-12-25] MEDS: PANTOPRAZOLE 40 MG TABLET.DR. PO SCH (06:28)
[2018-12-25] MEDS: LEVOTHYROXINE 88 MCG TABLET PO SCH (06:28)
[2018-12-25] MEDS ORDERED: DEXTROSE 50% 25 GM / 50ML DISP.SYRIN. IV ONE (07:28)
[2018-12-25 07:44] VITALS: BP 151/60
[2018-12-25] MEDS ORDERED: DEXTROSE ORAL GEL 15 GM TUBE. ONE ×2 (07:48→08:31)
[2018-12-25] MEDS: INSULIN LISPRO 300 UNITS/3 ML INSULN.PEN. SQ SCH ×3 (07:55→16:06)
[2018-12-25] MEDS: FERROUS SULFATE 325 MG TABLET. PO SCH ×2 (08:09→17:17)
[2018-12-25] MEDS: predniSONE 5 MG TABLET PO SCH (08:10)
[2018-12-25] MEDS: TACROLIMUS 0.5 MG CAPSULE PO SCH ×2 (08:10→20:29)
[2018-12-25] MEDS: hydroCHLOROthiazide 25 MG TABLET PO SCH (08:10)
[2018-12-25] MEDS: CETIRIZINE HCL 10 MG TABLET. PO SCH (08:10)
[2018-12-25] MEDS: ASPIRIN CHEWABLE 81 MG TABLET. PO SCH (08:10)
[2018-12-25] MEDS: ATORVASTATIN CALCIUM 10 MG TABLET. PO SCH (08:10)
[2018-12-25] MEDS: amLODIPine BESYLATE 10 MG TABLET PO SCH (08:11)
[2018-12-25] MEDS: METOPROLOL TART IMMED RELEASE 50 MG TABLET. PO SCH ×2 (08:11→20:28)
[2018-12-25] MEDS: HEPARIN for SUB-Q USE 5,000 UNIT/ML VIAL. SQ SCH ×2 (08:26→20:32)
[2018-12-25] MEDS: NYSTATIN TOPICAL POWDER 15GM BOTTLE. TP SCH ×2 (08:27→21:00)
[2018-12-25] MEDS: azaTHIOprine 50 MG TABLET PO SCH (08:28)
--- NOTE | 2018-12-25 08:46 | PDOC ---
PULMONARY PROGRESS NOTES Subjective patient feels better, cough mostly non productive Vitals Vital Signs Date Time Temp Pulse Resp B/P (MAP) Pulse Ox O2 Delivery O2 Flow Rate FiO2 12/25/18 08:11 71 151/60 12/25/18 07:44 97.6 20 96 Nasal Cannula 2.0 97.6 General: Alert, No acute distress Lungs: Crackles Cardiovascular: S1, S2 Abdomen: Soft, Other Extremities: Other Labs Laboratory Tests Test 12/23/18 13:46 12/23/18 14:05 12/23/18 15:10 12/23/18 20:44 Glucose (Fingerstick) 149 mg/dL (70-99) 160 mg/dL (70-99) White Blood Count 7.2 x10^3/uL (4.0-11.0) Red Blood Count 3.78 x10^6/uL (4.30-5.70) Hemoglobin 9.3 g/dL (13.0-17.5) Hematocrit 30.5 % (39.0-53.0) Mean Corpuscular Volume 81 fL (79-100) Mean Corpuscular Hemoglobin 25 pg (25-35) Mean Corpuscular Hemoglobin Concent 31 g/dL (31-37) Red Cell Distribution Width 17.0 % (11.5-14.5) Platelet Count 232 x10^3/uL (140-400) Neutrophils (%) (Auto) 81 % (31-73) Lymphocytes (%) (Auto) 9 % (24-48) Monocytes (%) (Auto) 8 % (0-9) Eosinophils (%) (Auto) 2 % (0-3) Basophils (%) (Auto) 1 % (0-3) Neutrophils # (Auto) 5.8 x10^3uL (1.8-7.7) Lymphocytes # (Auto) 0.6 x10^3/uL (1.0-4.8) Monocytes # (Auto) 0.6 x10^3/uL (0.0-1.1) Eosinophils # (Auto) 0.1 x10^3/uL (0.0-0.7) Basophils # (Auto) 0.1 x10^3/uL (0.0-0.2) Lactic Acid Level 1.8 mmol/L (0.4-2.0) Sodium Level 143 mmol/L (136-145) Potassium Level 4.4 mmol/L (3.5-5.1) Chloride Level 106 mmol/L (98-107) Carbon Dioxide Level 28 mmol/L (21-32) Anion Gap 9 (6-14) Blood Urea Nitrogen 18 mg/dL (8-26) Creatinine 2.2 mg/dL (0.7-1.3) Estimated GFR (Cockcroft-Gault) 29.3 BUN/Creatinine Ratio 8 (6-20) Glucose Level 134 mg/dL (70-99) Calcium Level 9.2 mg/dL (8.5-10.1) Total Bilirubin 0.4 mg/dL (0.2-1.0) Aspartate Amino Transf (AST/SGOT) 19 U/L (15-37) Alanine Aminotransferase (ALT/SGPT) 16 U/L (16-63) Alkaline Phosphatase 88 U/L (46-116) Troponin I Quantitative 0.042 ng/mL (0.000-0.055) HM-Ifz-O-Type Natriuretic Peptide 31666 pg/mL (0-449) Total Protein 7.4 g/dL (6.4-8.2) Albumin 2.8 g/dL (3.4-5.0) Albumin/Globulin Ratio 0.6 (1.0-1.7) Test 12/23/18 21:02 12/23/18 21:48 12/24/18 03:30 12/24/18 07:44 Urine Collection Type Unknown Urine Color Yellow Urine Clarity Clear Urine pH 5.5 Urine Specific [place] 1.015 Urine Protein 100 mg/dL (NEG-TRACE) Urine Glucose (UA) Negative mg/dL (NEG) Urine Ketones (Stick) Negative mg/dL (NEG) Urine Blood Negative (NEG) Urine Nitrite Negative (NEG) Urine Bilirubin Negative (NEG) Urine Urobilinogen Dipstick 0.2 mg/dL (0.2 mg/dL) Urine Leukocyte Esterase Negative (NEG) Urine RBC Occ /HPF (0-2) Urine WBC Occ /HPF (0-4) Urine Squamous Epithelial Cells Few /LPF Urine Amorphous Sediment Present /HPF Urine Bacteria Few /HPF (0-FEW) Urine Mucus Slight /LPF Nasal Screen MRSA (PCR) Negative (Negative) White Blood Count 6.9 x10^3/uL (4.0-11.0) Red Blood Count 3.80 x10^6/uL (4.30-5.70) Hemoglobin 9.5 g/dL (13.0-17.5) Hematocrit 30.6 % (39.0-53.0) Mean Corpuscular Volume 81 fL (79-100) Mean Corpuscular Hemoglobin 25 pg (25-35) Mean Corpuscular Hemoglobin Concent 31 g/dL (31-37) Red Cell Distribution Width 17.0 % (11.5-14.5) Platelet Count 239 x10^3/uL (140-400) Neutrophils (%) (Auto) 66 % (31-73) Lymphocytes (%) (Auto) 16 % (24-48) Monocytes (%) (Auto) 14 % (0-9) Eosinophils (%) (Auto) 3 % (0-3) Basophils (%) (Auto) 1 % (0-3) Neutrophils # (Auto) 4.6 x10^3uL (1.8-7.7) Lymphocytes # (Auto) 1.1 x10^3/uL (1.0-4.8) Monocytes # (Auto) 1.0 x10^3/uL (0.0-1.1) Eosinophils # (Auto) 0.2 x10^3/uL (0.0-0.7) Basophils # (Auto) 0.1 x10^3/uL (0.0-0.2) Sodium Level 144 mmol/L (136-145) Potassium Level 4.5 mmol/L (3.5-5.1) Chloride Level 108 mmol/L (98-107) Carbon Dioxide Level 30 mmol/L (21-32) Anion Gap 6 (6-14) Blood Urea Nitrogen 17 mg/dL (8-26) Creatinine 2.2 mg/dL (0.7-1.3) Estimated GFR (Cockcroft-Gault) 29.3 BUN/Creatinine Ratio 8 (6-20) Glucose Level 86 mg/dL (70-99) Hemoglobin A1c 5.5 % (4.8-5.6) Calcium Level 9.2 mg/dL (8.5-10.1) Total Bilirubin 0.4 mg/dL (0.2-1.0) Aspartate Amino Transf (AST/SGOT) 20 U/L (15-37) Alanine Aminotransferase (ALT/SGPT) 14 U/L (16-63) Alkaline Phosphatase 83 U/L (46-116) Total Protein 6.9 g/dL (6.4-8.2) Albumin 2.6 g/dL (3.4-5.0) Albumin/Globulin Ratio 0.6 (1.0-1.7) Triglycerides Level 71 mg/dL (0-150) Cholesterol Level 64 mg/dL (0-200) LDL Cholesterol, Calculated 24 mg/dL (0-100) VLDL Cholesterol, Calculated 14 mg/dL (0-40) Non-HDL Cholesterol Calculated 38 mg/dL (0-129) HDL Cholesterol 26 mg/dL (40-60) Cholesterol/HDL Ratio 2.5 Thyroid Stimulating Hormone (TSH) 4.518 uIU/mL (0.358-3.74) Glucose (Fingerstick) 56 mg/dL (70-99) Test 12/24/18 11:45 12/24/18 13:43 12/24/18 17:02 12/24/18 17:37 Glucose (Fingerstick) 52 mg/dL (70-99) 84 mg/dL (70-99) 40 mg/dL (70-99) 69 mg/dL (70-99) Test 12/25/18 00:30 12/25/18 01:42 12/25/18 07:27 Glucose (Fingerstick) 54 mg/dL (70-99) 67 mg/dL (70-99) 38 mg/dL (70-99) Laboratory Tests Test 12/24/18 11:45 12/24/18 13:43 12/24/18 17:02 12/24/18 17:37 Glucose (Fingerstick) 52 mg/dL (70-99) 84 mg/dL (70-99) 40 mg/dL (70-99) 69 mg/dL (70-99) Test 12/25/18 00:30 12/25/18 01:42 12/25/18 07:27 Glucose (Fingerstick) 54 mg/dL (70-99) 67 mg/dL (70-99) 38 mg/dL (70-99) Medications Active Scripts Medications Dose Route/Sig Max Daily Dose Days Date Category Amlodipine Besylate 5 Mg Tablet 10 Mg PO DAILY 06/22/17 Reported Docusate Sodium 100 Mg Capsule 1 Cap PO TID PRN PRN 06/22/17 Reported Ferrous Sulfate 325 Mg Tablet 1 Tab PO BIDAC 06/22/17 Reported Ondansetron Hcl 4 Mg Tablet 1 Tab PO PRN Q8HRS PRN 06/22/17 Reported Prednisone (Prednisone) 10 Mg Tablet 5 Mg PO DAILY 06/22/17 Reported Thiamine Hcl 100 Mg Tablet 100 Mg PO 06/22/17 Reported Pantoprazole Sodium 40 Mg Tablet.dr 1 Tab PO DAILY 06/22/17 Reported Tacrolimus 0.5 Mg Capsule 0.5 Mg PO DAILY 06/22/17 Reported Metoprolol Tartrate 50 Mg Tablet 3 Tab PO BID 06/22/17 Reported Keflex (Cephalexin) 500 Mg Capsule 500 Mg PO QID 5 06/30/15 Rx Novolog Flexpen (Insulin Aspart) 100 Unit/1 Ml Insuln.pen 22 Unit SQ AC SUPPER 06/26/15 Reported Novolog Flexpen (Insulin Aspart) 100 Unit/1 Ml Insuln.pen 18 Unit SQ AC LUNCH 06/26/15 Reported Novolog Flexpen (Insulin Aspart) 100 Unit/1 Ml Insuln.pen 10 Unit SQ AC BREAKFAST 06/26/15 Reported Levothyroxine Sodium 88 Mcg Tablet 1 Tab PO DAILY 06/24/15 Reported Atorvastatin Calcium 10 Mg Tablet 1 Tab PO DAILY 06/24/15 Reported Loratadine 10 Mg Tablet 1 Tab PO DAILY 06/24/15 Reported Hydrochlorothiazide Tablet (Hydrochlorothiazide) 25 Mg Tablet 25 Mg PO DAILY 06/24/15 Reported Pepcid Ac (Famotidine) 20 Mg Tablet 20 Mg PO HS 06/24/15 Reported Men's Multivitamin Gummies (Folic Acid/Multivit-Minerals) 200 Mcg Tab.chew 200 Mcg PO 06/24/15 Reported Lantus (Insulin Glargine,Hum.rec.anlog) 100 Unit/1 Ml Vial 70 Unit SQ QHS 06/24/15 Reported Alendronate Sodium 70 Mg Tablet 70 Mg PO WEEKLY 06/24/15 Reported Impression . IMPRESSION: 1. Acute hypoxemic respiratory failure. 2. Acute on chronic diastolic heart failure. 3. Abnormal x-ray revealing small bilateral effusions. 4. Suspect severe secondary pulmonary hypertension. 5. Morbid obesity. 6. Obstructive sleep apnea. 7. Chronic lower extremity lymphedema. 8. End-stage renal disease, status post renal transplant. Plan . continue to diuresis follow CXR no need for thoracentesis discussed the above with the son at the bedside SHARATH VALLE MD Dec 25, 2018 08:45
--- NOTE | 2018-12-25 09:35 | NUR ---
AM blood sugar was 38 at 0727. Attempted to administer dextrose via IVP but IV infiltrated. Patient was given juice x3. Blood sugar recheck was 35 at 0809, glucose gel administered at this time in addition to juice x2. IV reestablished, dextrose given IVP. Blood sugar improved, 69 at 0851 and 89 at 0935. Will continue to monitor and treat as appropriate.
[2018-12-25 10:31] VITALS: BP 127/82
--- NOTE | 2018-12-25 11:03 | PDOC ---
SUBJECTIVE ROS Stable, states feeling better , Not on o2 at home OBJECTIVE Vital Signs Vital Signs Date Time Temp Pulse Resp B/P (MAP) Pulse Ox O2 Delivery O2 Flow Rate FiO2 12/25/18 10:31 97.9 57 20 127/82 (97) 99 Nasal Cannula 2.0 97.9 I & 0 Intake and Output 12/25/18 07:00 Intake Total 1400 ml Output Total 950 ml Balance 450 ml Intake Oral 1400 ml Output Urine Total 950 ml PHYSICAL EXAM Physical Exam General: Sitting up in bed , Morbidly obese HEENT: OM moist , On o2 by NC Neck: Supple Lungs: CTA, Coarse CV RRR Abdomen: Soft obese, No transplant tenderness RtLQ Extremities: Changes of CVI present Skin: No rashes Neuro: Grossly normal - No hinojosa DIAGNOSIS/ASSESSMENT Assessment & Plan CKD stage 3- 4- per [facility] records Follows with nephrology as OP(not with our Group) Renal function appears to be stable, E-Lytes stable, UA unremarkable Strict I/O, Monitor, daily standing weight, Supportive care Renal transplant- On prednisone and tacrolimus Continue Acute on chronic shortness of breath Acute on chronic systolic HF; CXR with vascular congestion Diuresis Cautiously Cardiomyopathy; Echo at 08/2018 LVEF 40-45% PAFIB; ASA for stroke prevention. Recent GI bleed at 08/2018 Pleural effusion, recurrent DM2, on insulin Morbid obesity, BMI 54, with moderate hypoalbuminemia, malnutrition PAD s/p left BKA [place]- On CPAP Discussed with pt, not at bedside at this time COMMENT/RELEVANT DATA Meds Current Medications Medications (Trade) Dose Ordered Sig/Ivett Start Time Stop Time Status Last Admin Dose Admin Amlodipine Besylate (Norvasc) 10 mg DAILY 12/24/18 09:00 12/25/18 08:11 10 MG Aspirin (Children'S Aspirin) 81 mg DAILY08 12/24/18 08:00 12/25/18 08:10 81 MG Atorvastatin Calcium (Lipitor) 10 mg DAILY 12/24/18 09:00 12/25/18 08:10 10 MG Azathioprine (Imuran) 200 mg DAILY 12/24/18 09:00 12/24/18 09:33 200 MG Cetirizine HCl (ZyrTEC) 10 mg DAILY 12/24/18 09:00 12/25/18 08:10 10 MG Dextrose (Dextrose 50%-Water Syringe) 25 gm STK-MED ONCE 12/25/18 07:28 12/25/18 07:29 DC Docusate Sodium (Colace) 100 mg TID PRN PRN 12/23/18 18:45 12/25/18 08:12 100 MG Famotidine (Pepcid) 20 mg HS 12/23/18 21:00 12/24/18 21:23 20 MG Ferrous Sulfate (Feosol) 325 mg BIDAC 12/24/18 07:30 12/25/18 08:09 325 MG Furosemide (Lasix) 40 mg 1X ONCE 12/24/18 16:00 12/24/18 16:01 DC 12/24/18 16:25 40 MG Glucose (Insta-Glucose) 15 gm STK-MED ONCE 12/25/18 08:31 12/25/18 08:32 DC Haloperidol Lactate (HALDOL 2mg ORAL CONC) 0.25 mg PRN Q8HRS PRN 12/23/18 19:00 Heparin Sodium (Porcine) (Heparin Sodium) 5,000 unit BID 12/24/18 09:00 12/25/18 08:26 5,000 UNIT Hydrochlorothiazide (Hydrodiuril) 25 mg DAILY 12/24/18 09:00 12/25/18 08:10 25 MG Insulin Glargine (Lantus) 70 units QHS 12/23/18 21:00 12/23/18 21:21 70 UNITS Insulin Human Lispro (HumaLOG) 22 units DAILYWSUP 12/24/18 17:00 Levothyroxine Sodium (Synthroid) 88 mcg DAILY07 12/24/18 07:00 12/25/18 06:28 88 MCG Metoprolol Tartrate (Lopressor) 150 mg BID 12/23/18 21:00 12/25/18 08:11 150 MG Nystatin (Nystop) 1 ana BID 12/24/18 21:00 12/25/18 08:27 1 ANA Ondansetron HCl (Zofran Odt) 4 mg PRN Q8HRS PRN 12/23/18 19:00 Pantoprazole Sodium (Protonix) 40 mg DAILY07 12/24/18 07:00 12/25/18 06:28 40 MG Prednisone (Prednisone) 5 mg DAILY 12/24/18 09:00 12/25/18 08:10 5 MG Tacrolimus (Prograf) 1 mg BID 12/23/18 21:00 12/25/18 08:10 0.5 MG Lab Laboratory Tests Test 12/24/18 11:45 12/24/18 13:43 12/24/18 17:02 12/24/18 17:37 Glucose (Fingerstick) 52 mg/dL (70-99) 84 mg/dL (70-99) 40 mg/dL (70-99) 69 mg/dL (70-99) Test 12/25/18 00:30 12/25/18 01:42 12/25/18 07:27 12/25/18 08:09 Glucose (Fingerstick) 54 mg/dL (70-99) 67 mg/dL (70-99) 38 mg/dL (70-99) 35 mg/dL (70-99) Test 12/25/18 08:51 12/25/18 09:35 Glucose (Fingerstick) 69 mg/dL (70-99) 89 mg/dL (70-99) Results All relevant outside records, renal labs, imaging studies, telemetry/EKG's were reviewed. RASHAAD KELLY MD Dec 25, 2018 11:03
[2018-12-25 11:49] LABS: CALCIUM 8.9 mg/dL (8.5-10.1); CREATININE 2.4 mg/dL (0.7-1.3); GFR 26.5; POTASSIUM 4.5 mmol/L (3.5-5.1)
--- NOTE | 2018-12-25 12:39 | PDOC ---
[employer] PROGRESS NOTE Chief Complaint Chief Complaint Acute on chronic systolic and diastolic heart failure Respiratory failure Stage IV chronic kidney disease Volume overload Diabetes Morbid obesity with a BMI of 54 Multiple comorbidities History of Present Illness History of Present Illness Patient resting with no apparent distress Vital signs are stable Discussed with RN Reviewed notes and labs Vitals Vitals Vital Signs Date Time Temp Pulse Resp B/P (MAP) Pulse Ox O2 Delivery O2 Flow Rate FiO2 12/25/18 10:31 97.9 57 20 127/82 (97) 99 Nasal Cannula 2.0 97.9 Physical Exam General: No acute distress, Other (sleeping in a chair) Heart: Other (AFIB rate near 60, distant heart tones) Lungs: Crackles Abdomen: Soft, Other (obese) Extremities: Other (left BKA, venous statis changes to RLE) Skin: No significant lesion Labs Labs: Laboratory Tests Test 12/24/18 13:43 12/24/18 17:02 12/24/18 17:37 12/25/18 00:30 Glucose (Fingerstick) 84 mg/dL (70-99) 40 mg/dL (70-99) 69 mg/dL (70-99) 54 mg/dL (70-99) Test 12/25/18 01:42 12/25/18 07:27 12/25/18 08:09 12/25/18 08:51 Glucose (Fingerstick) 67 mg/dL (70-99) 38 mg/dL (70-99) 35 mg/dL (70-99) 69 mg/dL (70-99) Test 12/25/18 09:35 12/25/18 10:46 12/25/18 11:37 Glucose (Fingerstick) 89 mg/dL (70-99) 83 mg/dL (70-99) Sodium Level 142 mmol/L (136-145) Potassium Level 4.5 mmol/L (3.5-5.1) Chloride Level 105 mmol/L (98-107) Carbon Dioxide Level 28 mmol/L (21-32) Anion Gap 9 (6-14) Blood Urea Nitrogen 19 mg/dL (8-26) Creatinine 2.4 mg/dL (0.7-1.3) Estimated GFR (Cockcroft-Gault) 26.5 Glucose Level 200 mg/dL (70-99) Calcium Level 8.9 mg/dL (8.5-10.1) Assessment and Plan Assessmemt and Plan Problems Medical Problems: (1) Dyspnea Status: Acute (2) Pulmonary edema Status: Acute Acute on chronic systolic and diastolic heart failure Stage IV kidney disease Diabetes CHF DM overload acute on chronic shortness of breath pleural effusion, recurrent DM2, on insulin renal transplant, cont immune mod therapy morbid obesity, BMI 54, with moderate hypoalbuminemia, malnutrition weakness, acquired Plan nephrology pulmonary and cardiology following IV Lasix Frequent labs Duo nebs Antibiotics O2 per nasal cannula Home meds PT OT if possible DVT prophylaxis Full code Long-term prognosis guarded maybe even poor because of his morbid obesity and multiple comorbidities Comment Review of Relevant I have reviewed the following items buzz (where applicable) has been applied. Labs Laboratory Tests Test 12/23/18 13:46 12/23/18 14:05 12/23/18 15:10 12/23/18 20:44 Glucose (Fingerstick) 149 mg/dL (70-99) 160 mg/dL (70-99) White Blood Count 7.2 x10^3/uL (4.0-11.0) Red Blood Count 3.78 x10^6/uL (4.30-5.70) Hemoglobin 9.3 g/dL (13.0-17.5) Hematocrit 30.5 % (39.0-53.0) Mean Corpuscular Volume 81 fL (79-100) Mean Corpuscular Hemoglobin 25 pg (25-35) Mean Corpuscular Hemoglobin Concent 31 g/dL (31-37) Red Cell Distribution Width 17.0 % (11.5-14.5) Platelet Count 232 x10^3/uL (140-400) Neutrophils (%) (Auto) 81 % (31-73) Lymphocytes (%) (Auto) 9 % (24-48) Monocytes (%) (Auto) 8 % (0-9) Eosinophils (%) (Auto) 2 % (0-3) Basophils (%) (Auto) 1 % (0-3) Neutrophils # (Auto) 5.8 x10^3uL (1.8-7.7) Lymphocytes # (Auto) 0.6 x10^3/uL (1.0-4.8) Monocytes # (Auto) 0.6 x10^3/uL (0.0-1.1) Eosinophils # (Auto) 0.1 x10^3/uL (0.0-0.7) Basophils # (Auto) 0.1 x10^3/uL (0.0-0.2) Lactic Acid Level 1.8 mmol/L (0.4-2.0) Sodium Level 143 mmol/L (136-145) Potassium Level 4.4 mmol/L (3.5-5.1) Chloride Level 106 mmol/L (98-107) Carbon Dioxide Level 28 mmol/L (21-32) Anion Gap 9 (6-14) Blood Urea Nitrogen 18 mg/dL (8-26) Creatinine 2.2 mg/dL (0.7-1.3) Estimated GFR (Cockcroft-Gault) 29.3 BUN/Creatinine Ratio 8 (6-20) Glucose Level 134 mg/dL (70-99) Calcium Level 9.2 mg/dL (8.5-10.1) Total Bilirubin 0.4 mg/dL (0.2-1.0) Aspartate Amino Transf (AST/SGOT) 19 U/L (15-37) Alanine Aminotransferase (ALT/SGPT) 16 U/L (16-63) Alkaline Phosphatase 88 U/L (46-116) Troponin I Quantitative 0.042 ng/mL (0.000-0.055) KV-Ous-Z-Type Natriuretic Peptide 17682 pg/mL (0-449) Total Protein 7.4 g/dL (6.4-8.2) Albumin 2.8 g/dL (3.4-5.0) Albumin/Globulin Ratio 0.6 (1.0-1.7) Test 12/23/18 21:02 12/23/18 21:48 12/24/18 03:30 12/24/18 07:44 Urine Collection Type Unknown Urine Color Yellow Urine Clarity Clear Urine pH 5.5 Urine Specific [place] 1.015 Urine Protein 100 mg/dL (NEG-TRACE) Urine Glucose (UA) Negative mg/dL (NEG) Urine Ketones (Stick) Negative mg/dL (NEG) Urine Blood Negative (NEG) Urine Nitrite Negative (NEG) Urine Bilirubin Negative (NEG) Urine Urobilinogen Dipstick 0.2 mg/dL (0.2 mg/dL) Urine Leukocyte Esterase Negative (NEG) Urine RBC Occ /HPF (0-2) Urine WBC Occ /HPF (0-4) Urine Squamous Epithelial Cells Few /LPF Urine Amorphous Sediment Present /HPF Urine Bacteria Few /HPF (0-FEW) Urine Mucus Slight /LPF Nasal Screen MRSA (PCR) Negative (Negative) White Blood Count 6.9 x10^3/uL (4.0-11.0) Red Blood Count 3.80 x10^6/uL (4.30-5.70) Hemoglobin 9.5 g/dL (13.0-17.5) Hematocrit 30.6 % (39.0-53.0) Mean Corpuscular Volume 81 fL (79-100) Mean Corpuscular Hemoglobin 25 pg (25-35) Mean Corpuscular Hemoglobin Concent 31 g/dL (31-37) Red Cell Distribution Width 17.0 % (11.5-14.5) Platelet Count 239 x10^3/uL (140-400) Neutrophils (%) (Auto) 66 % (31-73) Lymphocytes (%) (Auto) 16 % (24-48) Monocytes (%) (Auto) 14 % (0-9) Eosinophils (%) (Auto) 3 % (0-3) Basophils (%) (Auto) 1 % (0-3) Neutrophils # (Auto) 4.6 x10^3uL (1.8-7.7) Lymphocytes # (Auto) 1.1 x10^3/uL (1.0-4.8) Monocytes # (Auto) 1.0 x10^3/uL (0.0-1.1) Eosinophils # (Auto) 0.2 x10^3/uL (0.0-0.7) Basophils # (Auto) 0.1 x10^3/uL (0.0-0.2) Sodium Level 144 mmol/L (136-145) Potassium Level 4.5 mmol/L (3.5-5.1) Chloride Level 108 mmol/L (98-107) Carbon Dioxide Level 30 mmol/L (21-32) Anion Gap 6 (6-14) Blood Urea Nitrogen 17 mg/dL (8-26) Creatinine 2.2 mg/dL (0.7-1.3) Estimated GFR (Cockcroft-Gault) 29.3 BUN/Creatinine Ratio 8 (6-20) Glucose Level 86 mg/dL (70-99) Hemoglobin A1c 5.5 % (4.8-5.6) Calcium Level 9.2 mg/dL (8.5-10.1) Total Bilirubin 0.4 mg/dL (0.2-1.0) Aspartate Amino Transf (AST/SGOT) 20 U/L (15-37) Alanine Aminotransferase (ALT/SGPT) 14 U/L (16-63) Alkaline Phosphatase 83 U/L (46-116) Total Protein 6.9 g/dL (6.4-8.2) Albumin 2.6 g/dL (3.4-5.0) Albumin/Globulin Ratio 0.6 (1.0-1.7) Triglycerides Level 71 mg/dL (0-150) Cholesterol Level 64 mg/dL (0-200) LDL Cholesterol, Calculated 24 mg/dL (0-100) VLDL Cholesterol, Calculated 14 mg/dL (0-40) Non-HDL Cholesterol Calculated 38 mg/dL (0-129) HDL Cholesterol 26 mg/dL (40-60) Cholesterol/HDL Ratio 2.5 Thyroid Stimulating Hormone (TSH) 4.518 uIU/mL (0.358-3.74) Glucose (Fingerstick) 56 mg/dL (70-99) Test 12/24/18 11:45 12/24/18 13:43 12/24/18 17:02 12/24/18 17:37 Glucose (Fingerstick) 52 mg/dL (70-99) 84 mg/dL (70-99) 40 mg/dL (70-99) 69 mg/dL (70-99) Test 12/25/18 00:30 12/25/18 01:42 12/25/18 07:27 12/25/18 08:09 Glucose (Fingerstick) 54 mg/dL (70-99) 67 mg/dL (70-99) 38 mg/dL (70-99) 35 mg/dL (70-99) Test 12/25/18 08:51 12/25/18 09:35 12/25/18 10:46 12/25/18 11:37 Glucose (Fingerstick) 69 mg/dL (70-99) 89 mg/dL (70-99) 83 mg/dL (70-99) Sodium Level 142 mmol/L (136-145) Potassium Level 4.5 mmol/L (3.5-5.1) Chloride Level 105 mmol/L (98-107) Carbon Dioxide Level 28 mmol/L (21-32) Anion Gap 9 (6-14) Blood Urea Nitrogen 19 mg/dL (8-26) Creatinine 2.4 mg/dL (0.7-1.3) Estimated GFR (Cockcroft-Gault) 26.5 Glucose Level 200 mg/dL (70-99) Calcium Level 8.9 mg/dL (8.5-10.1) Laboratory Tests Test 12/24/18 13:43 12/24/18 17:02 12/24/18 17:37 12/25/18 00:30 Glucose (Fingerstick) 84 mg/dL (70-99) 40 mg/dL (70-99) 69 mg/dL (70-99) 54 mg/dL (70-99) Test 12/25/18 01:42 12/25/18 07:27 12/25/18 08:09 12/25/18 08:51 Glucose (Fingerstick) 67 mg/dL (70-99) 38 mg/dL (70-99) 35 mg/dL (70-99) 69 mg/dL (70-99) Test 12/25/18 09:35 12/25/18 10:46 12/25/18 11:37 Glucose (Fingerstick) 89 mg/dL (70-99) 83 mg/dL (70-99) Sodium Level 142 mmol/L (136-145) Potassium Level 4.5 mmol/L (3.5-5.1) Chloride Level 105 mmol/L (98-107) Carbon Dioxide Level 28 mmol/L (21-32) Anion Gap 9 (6-14) Blood Urea Nitrogen 19 mg/dL (8-26) Creatinine 2.4 mg/dL (0.7-1.3) Estimated GFR (Cockcroft-Gault) 26.5 Glucose Level 200 mg/dL (70-99) Calcium Level 8.9 mg/dL (8.5-10.1) Microbiology 12/23/18 Blood Culture - Preliminary, Resulted NO GROWTH AFTER 1 DAY Medications Current Medications Amlodipine Besylate (Norvasc) 10 mg DAILY PO Last administered on 12/25/18at 08:11; Start 12/24/18 at 09:00 Aspirin (Children'S Aspirin) 81 mg DAILY08 PO Last administered on 12/25/18 08:10; Start 12/24/18 at 08:00 Atorvastatin Calcium (Lipitor) 10 mg DAILY PO Last administered on 12/25/18 08:10; Start 12/24/18 at 09:00 Azathioprine (Imuran) 200 mg DAILY PO Last administered on 12/24/18 09:33; Start 12/24/18 at 09:00 Docusate Sodium (Colace) 100 mg TID PRN PRN PO CONSTIPATION Last administered on 12/25/18 08:12; Start 12/23/18 at 18:45 Famotidine (Pepcid) 20 mg HS PO Last administered on 12/24/18 21:23; Start 12/23/18 at 21:00 Ferrous Sulfate (Feosol) 325 mg BIDAC PO Last administered on 12/25/18 08:09; Start 12/24/18 at 07:30 Hydrochlorothiazide (Hydrodiuril) 25 mg DAILY PO Last administered on 12/25/18 08:10; Start 12/24/18 at 09:00 Levothyroxine Sodium (Synthroid) 88 mcg DAILY07 PO Last administered on 12/25/18 06:28; Start 12/24/18 at 07:00 Metoprolol Tartrate (Lopressor) 150 mg BID PO Last administered on 12/25/18 08:11; Start 12/23/18 at 21:00 Pantoprazole Sodium (Protonix) 40 mg DAILY07 PO Last administered on 12/25/18 06:28; Start 12/24/18 at 07:00 Prednisone (Prednisone) 5 mg DAILY PO Last administered on 12/25/18 08:10; Start 12/24/18 at 09:00 Haloperidol Lactate (HALDOL 2mg ORAL CONC) 0.25 mg PRN Q8HRS PRN PO ANXIETY / AGITATION; Start 12/23/18 at 19:00 Insulin Human Lispro (HumaLOG) 10 units DAILYWBKFT SQ ; Start 12/24/18 at 08:00 Insulin Human Lispro (HumaLOG) 18 units DAILYWLUN SQ ; Start 12/24/18 at 08:00 Insulin Human Lispro (HumaLOG) 22 units DAILYWSUP SQ ; Start 12/24/18 at 17:00 Insulin Glargine (Lantus) 70 units QHS SQ Last administered on 12/23/18at 21:21; Start 12/23/18 at 21:00 Cetirizine HCl (ZyrTEC) 10 mg DAILY PO Last administered on 12/25/18at 08:10; Start 12/24/18 at 09:00 Ondansetron HCl (Zofran Odt) 4 mg PRN Q8HRS PRN PO NAUSEA/VOMITING; Start 12/23/18 at 19:00 Tacrolimus (Prograf) 1 mg BID PO Last administered on 12/25/18at 08:10; Start 12/23/18 at 21:00 Heparin Sodium (Porcine) (Heparin Sodium) 5,000 unit BID SQ Last administered on 12/25/18at 08:26; Start 12/24/18 at 09:00 Furosemide (Lasix) 40 mg 1X ONCE IVP Last administered on 12/24/18at 16:25; Start 12/24/18 at 16:00; Stop 12/24/18 at 16:01; Status DC Nystatin (Nystop) 1 ana BID TP Last administered on 12/25/18at 08:27; Start 12/24/18 at 21:00 Dextrose (Dextrose 50%-Water Syringe) 25 gm STK-MED ONCE IV ; Start 12/25/18 at 07:28; Stop 12/25/18 at 07:29; Status DC Glucose (Insta-Glucose) 15 gm STK-MED ONCE .ROUTE ; Start 12/25/18 at 07:48; Stop 12/25/18 at 07:49; Status DC Glucose (Insta-Glucose) 15 gm STK-MED ONCE .ROUTE ; Start 12/25/18 at 08:31; Stop 12/25/18 at 08:32; Status DC Active Scripts Active Keflex (Cephalexin) 500 Mg Capsule 500 Mg PO QID 5 Days Reported Renvela (Sevelamer Carbonate) 800 Mg Tablet 2 Tab PO TID Amlodipine Besylate 5 Mg Tablet 10 Mg PO DAILY Docusate Sodium 100 Mg Capsule 1 Cap PO TID PRN PRN Ferrous Sulfate 325 Mg Tablet 1 Tab PO BIDAC Ondansetron Hcl 4 Mg Tablet 1 Tab PO PRN Q8HRS PRN Prednisone (Prednisone) 10 Mg Tablet 5 Mg PO DAILY Thiamine Hcl 100 Mg Tablet 100 Mg PO Pantoprazole Sodium 40 Mg Tablet.dr 1 Tab PO DAILY Tacrolimus 0.5 Mg Capsule 0.5 Mg PO DAILY Metoprolol Tartrate 50 Mg Tablet 3 Tab PO BID Novolog Flexpen (Insulin Aspart) 100 Unit/1 Ml Insuln.pen 22 Unit SQ AC SUPPER Novolog Flexpen (Insulin Aspart) 100 Unit/1 Ml Insuln.pen 18 Unit SQ AC LUNCH Novolog Flexpen (Insulin Aspart) 100 Unit/1 Ml Insuln.pen 10 Unit SQ AC BREAKFAST Levothyroxine Sodium 88 Mcg Tablet 1 Tab PO DAILY Atorvastatin Calcium 10 Mg Tablet 1 Tab PO DAILY Loratadine 10 Mg Tablet 1 Tab PO DAILY Hydrochlorothiazide Tablet (Hydrochlorothiazide) 25 Mg Tablet 25 Mg PO DAILY Men's Multivitamin Gummies (Folic Acid/Multivit-Minerals) 200 Mcg Tab.chew 200 Mcg PO Lantus (Insulin Glargine,Hum.rec.anlog) 100 Unit/1 Ml Vial 35 Unit SQ BID Alendronate Sodium 70 Mg Tablet 70 Mg PO WEEKLY Vitals/I & O Vital Sign - Last 24 Hours 12/24/18 12/24/18 12/24/18 12/24/18 15:19 19:21 20:00 21:24 Temp 97.5 98.1 97.5 98.1 Pulse 53 60 65 Resp 22 18 B/P (MAP) 142/50 (80) 131/51 (77) 142/50 Pulse Ox 95 100 O2 Delivery Nasal Cannula Nasal Cannula Nasal Cannula O2 Flow Rate 2.0 2.0 2.0 12/24/18 12/24/18 12/25/18 12/25/18 21:41 23:18 00:57 02:48 Temp 97.7 97.7 Pulse 57 Resp 20 B/P (MAP) 148/55 (86) Pulse Ox 100 99 100 O2 Delivery BiPAP/CPAP BiPAP/CPAP BiPAP/CPAP BiPAP/CPAP 12/25/18 12/25/18 12/25/18 12/25/18 03:48 05:35 07:44 08:00 Temp 98.0 97.6 98.0 97.6 Pulse 52 71 Resp 20 20 B/P (MAP) 131/59 (83) 151/60 (90) Pulse Ox 98 96 O2 Delivery Nasal Cannula BiPAP/CPAP Nasal Cannula Nasal Cannula O2 Flow Rate 2.0 2.0 2.0 12/25/18 12/25/18 12/25/18 08:11 08:11 10:31 Temp 97.9 97.9 Pulse 71 71 57 Resp 20 B/P (MAP) 151/60 151/60 127/82 (97) Pulse Ox 99 O2 Delivery Nasal Cannula O2 Flow Rate 2.0 Intake and Output 12/24/18 12/24/18 12/25/18 15:00 23:00 07:00 Intake Total 640 ml 760 ml Output Total 600 ml 350 ml Balance 640 ml 160 ml -350 ml KASSIE COKER III DO Dec 25, 2018 12:39
[2018-12-25 14:49] VITALS: BP 103/59
--- NOTE | 2018-12-25 17:33 | PDOC ---
PROGRESS NOTES Subjective Subjective Patient seen and examined He looks and feels better today. Objective Objective Vital Signs Date Time Temp Pulse Resp B/P (MAP) Pulse Ox O2 Delivery O2 Flow Rate FiO2 12/25/18 14:49 97.6 59 20 103/59 (74) 99 Nasal Cannula 2.0 97.6 Intake and Output 12/25/18 07:00 Intake Total 1400 ml Output Total 950 ml Balance 450 ml Intake Oral 1400 ml Output Urine Total 950 ml Physical Exam Abdomen: Normal bowel sounds Heart: Regular rate General: mild distress Lungs: Other (decreased breath sounds) Assessment Assessment Problems Medical Problems: (1) Dyspnea Status: Acute (2) Pulmonary edema Status: Acute Acute respiratory failure. Improved. Continuing present treatment. Followed by the pulmonary service. Acute on chronic systolic heart failure. Chest x-ray with vascular congestion. ECHO echo with mildly decreased LV systolic function with an ejection fraction of 40-45%. Fluid management as per renal. Paroxysmal atrial fibrillation. Some bradycardia. Adjusting beta blockers as ne eded. On aspirin for stroke prevention. Recent GI bleed at [facility] 3 months ago. Hypertension. Continue baseline medications and monitor. Statins for hyperlipidemia. Status post renal transplant. As per the renal service. Creatine of 2.4 today. Peripheral arterial disease. Status post BKA. Continue medical treatment and supportive care. Morbid obesity with obstructive sleep apnea and CPAP. Comment Review of Relevant I have reviewed the following items buzz (where applicable) has been applied. Labs Laboratory Tests Test 12/23/18 20:44 12/23/18 21:02 12/23/18 21:48 12/24/18 03:30 Glucose (Fingerstick) 160 mg/dL (70-99) Urine Collection Type Unknown Urine Color Yellow Urine Clarity Clear Urine pH 5.5 Urine Specific [place] 1.015 Urine Protein 100 mg/dL (NEG-TRACE) Urine Glucose (UA) Negative mg/dL (NEG) Urine Ketones (Stick) Negative mg/dL (NEG) Urine Blood Negative (NEG) Urine Nitrite Negative (NEG) Urine Bilirubin Negative (NEG) Urine Urobilinogen Dipstick 0.2 mg/dL (0.2 mg/dL) Urine Leukocyte Esterase Negative (NEG) Urine RBC Occ /HPF (0-2) Urine WBC Occ /HPF (0-4) Urine Squamous Epithelial Cells Few /LPF Urine Amorphous Sediment Present /HPF Urine Bacteria Few /HPF (0-FEW) Urine Mucus Slight /LPF Nasal Screen MRSA (PCR) Negative (Negative) White Blood Count 6.9 x10^3/uL (4.0-11.0) Red Blood Count 3.80 x10^6/uL (4.30-5.70) Hemoglobin 9.5 g/dL (13.0-17.5) Hematocrit 30.6 % (39.0-53.0) Mean Corpuscular Volume 81 fL (79-100) Mean Corpuscular Hemoglobin 25 pg (25-35) Mean Corpuscular Hemoglobin Concent 31 g/dL (31-37) Red Cell Distribution Width 17.0 % (11.5-14.5) Platelet Count 239 x10^3/uL (140-400) Neutrophils (%) (Auto) 66 % (31-73) Lymphocytes (%) (Auto) 16 % (24-48) Monocytes (%) (Auto) 14 % (0-9) Eosinophils (%) (Auto) 3 % (0-3) Basophils (%) (Auto) 1 % (0-3) Neutrophils # (Auto) 4.6 x10^3uL (1.8-7.7) Lymphocytes # (Auto) 1.1 x10^3/uL (1.0-4.8) Monocytes # (Auto) 1.0 x10^3/uL (0.0-1.1) Eosinophils # (Auto) 0.2 x10^3/uL (0.0-0.7) Basophils # (Auto) 0.1 x10^3/uL (0.0-0.2) Sodium Level 144 mmol/L (136-145) Potassium Level 4.5 mmol/L (3.5-5.1) Chloride Level 108 mmol/L (98-107) Carbon Dioxide Level 30 mmol/L (21-32) Anion Gap 6 (6-14) Blood Urea Nitrogen 17 mg/dL (8-26) Creatinine 2.2 mg/dL (0.7-1.3) Estimated GFR (Cockcroft-Gault) 29.3 BUN/Creatinine Ratio 8 (6-20) Glucose Level 86 mg/dL (70-99) Hemoglobin A1c 5.5 % (4.8-5.6) Calcium Level 9.2 mg/dL (8.5-10.1) Total Bilirubin 0.4 mg/dL (0.2-1.0) Aspartate Amino Transf (AST/SGOT) 20 U/L (15-37) Alanine Aminotransferase (ALT/SGPT) 14 U/L (16-63) Alkaline Phosphatase 83 U/L (46-116) Total Protein 6.9 g/dL (6.4-8.2) Albumin 2.6 g/dL (3.4-5.0) Albumin/Globulin Ratio 0.6 (1.0-1.7) Triglycerides Level 71 mg/dL (0-150) Cholesterol Level 64 mg/dL (0-200) LDL Cholesterol, Calculated 24 mg/dL (0-100) VLDL Cholesterol, Calculated 14 mg/dL (0-40) Non-HDL Cholesterol Calculated 38 mg/dL (0-129) HDL Cholesterol 26 mg/dL (40-60) Cholesterol/HDL Ratio 2.5 Thyroid Stimulating Hormone (TSH) 4.518 uIU/mL (0.358-3.74) Test 12/24/18 07:44 12/24/18 11:45 12/24/18 13:43 12/24/18 17:02 Glucose (Fingerstick) 56 mg/dL (70-99) 52 mg/dL (70-99) 84 mg/dL (70-99) 40 mg/dL (70-99) Test 12/24/18 17:37 12/25/18 00:30 12/25/18 01:42 12/25/18 07:27 Glucose (Fingerstick) 69 mg/dL (70-99) 54 mg/dL (70-99) 67 mg/dL (70-99) 38 mg/dL (70-99) Test 12/25/18 08:09 12/25/18 08:51 12/25/18 09:35 12/25/18 10:46 Glucose (Fingerstick) 35 mg/dL (70-99) 69 mg/dL (70-99) 89 mg/dL (70-99) Sodium Level 142 mmol/L (136-145) Potassium Level 4.5 mmol/L (3.5-5.1) Chloride Level 105 mmol/L (98-107) Carbon Dioxide Level 28 mmol/L (21-32) Anion Gap 9 (6-14) Blood Urea Nitrogen 19 mg/dL (8-26) Creatinine 2.4 mg/dL (0.7-1.3) Estimated GFR (Cockcroft-Gault) 26.5 Glucose Level 200 mg/dL (70-99) Calcium Level 8.9 mg/dL (8.5-10.1) Test 12/25/18 11:37 12/25/18 16:24 Glucose (Fingerstick) 83 mg/dL (70-99) 102 mg/dL (70-99) Laboratory Tests Test 12/24/18 17:37 12/25/18 00:30 12/25/18 01:42 12/25/18 07:27 Glucose (Fingerstick) 69 mg/dL (70-99) 54 mg/dL (70-99) 67 mg/dL (70-99) 38 mg/dL (70-99) Test 12/25/18 08:09 12/25/18 08:51 12/25/18 09:35 12/25/18 10:46 Glucose (Fingerstick) 35 mg/dL (70-99) 69 mg/dL (70-99) 89 mg/dL (70-99) Sodium Level 142 mmol/L (136-145) Potassium Level 4.5 mmol/L (3.5-5.1) Chloride Level 105 mmol/L (98-107) Carbon Dioxide Level 28 mmol/L (21-32) Anion Gap 9 (6-14) Blood Urea Nitrogen 19 mg/dL (8-26) Creatinine 2.4 mg/dL (0.7-1.3) Estimated GFR (Cockcroft-Gault) 26.5 Glucose Level 200 mg/dL (70-99) Calcium Level 8.9 mg/dL (8.5-10.1) Test 12/25/18 11:37 12/25/18 16:24 Glucose (Fingerstick) 83 mg/dL (70-99) 102 mg/dL (70-99) Microbiology 12/23/18 Blood Culture - Preliminary, Resulted NO GROWTH AFTER 2 DAYS Medications Current Medications Amlodipine Besylate (Norvasc) 10 mg DAILY PO Last administered on 12/25/18at 08:11; Start 12/24/18 at 09:00 Aspirin (Children'S Aspirin) 81 mg DAILY08 PO Last administered on 12/25/18at 08:10; Start 12/24/18 at 08:00 Atorvastatin Calcium (Lipitor) 10 mg DAILY PO Last administered on 12/25/18 08:10; Start 12/24/18 at 09:00 Azathioprine (Imuran) 200 mg DAILY PO Last administered on 12/24/18 09:33; Start 12/24/18 at 09:00 Docusate Sodium (Colace) 100 mg TID PRN PRN PO CONSTIPATION Last administered on 12/25/18 08:12; Start 12/23/18 at 18:45 Famotidine (Pepcid) 20 mg HS PO Last administered on 12/24/18 21:23; Start 12/23/18 at 21:00 Ferrous Sulfate (Feosol) 325 mg BIDAC PO Last administered on 12/25/18 17:17; Start 12/24/18 at 07:30 Hydrochlorothiazide (Hydrodiuril) 25 mg DAILY PO Last administered on 12/25/18 08:10; Start 12/24/18 at 09:00 Levothyroxine Sodium (Synthroid) 88 mcg DAILY07 PO Last administered on 12/25/18 06:28; Start 12/24/18 at 07:00 Metoprolol Tartrate (Lopressor) 150 mg BID PO Last administered on 12/25/18 08:11; Start 12/23/18 at 21:00 Pantoprazole Sodium (Protonix) 40 mg DAILY07 PO Last administered on 12/25/18 06:28; Start 12/24/18 at 07:00 Prednisone (Prednisone) 5 mg DAILY PO Last administered on 12/25/18 08:10; Start 12/24/18 at 09:00 Haloperidol Lactate (HALDOL 2mg ORAL CONC) 0.25 mg PRN Q8HRS PRN PO ANXIETY / AGITATION; Start 12/23/18 at 19:00 Insulin Human Lispro (HumaLOG) 10 units DAILYWBKFT SQ ; Start 12/24/18 at 08:00 Insulin Human Lispro (HumaLOG) 18 units DAILYWLUN SQ ; Start 12/24/18 at 08:00 Insulin Human Lispro (HumaLOG) 22 units DAILYWSUP SQ ; Start 12/24/18 at 17:00 Insulin Glargine (Lantus) 70 units QHS SQ Last administered on 12/23/18 21:21; Start 12/23/18 at 21:00 Cetirizine HCl (ZyrTEC) 10 mg DAILY PO Last administered on 12/25/18at 08:10; Start 12/24/18 at 09:00 Ondansetron HCl (Zofran Odt) 4 mg PRN Q8HRS PRN PO NAUSEA/VOMITING; Start 12/23/18 at 19:00 Tacrolimus (Prograf) 1 mg BID PO Last administered on 12/25/18at 08:10; Start 12/23/18 at 21:00 Heparin Sodium (Porcine) (Heparin Sodium) 5,000 unit BID SQ Last administered on 12/25/18at 08:26; Start 12/24/18 at 09:00 Furosemide (Lasix) 40 mg 1X ONCE IVP Last administered on 12/24/18at 16:25; Start 12/24/18 at 16:00; Stop 12/24/18 at 16:01; Status DC Nystatin (Nystop) 1 ana BID TP Last administered on 12/25/18at 08:27; Start 12/24/18 at 21:00 Dextrose (Dextrose 50%-Water Syringe) 25 gm STK-MED ONCE IV ; Start 12/25/18 at 07:28; Stop 12/25/18 at 07:29; Status DC Glucose (Insta-Glucose) 15 gm STK-MED ONCE .ROUTE ; Start 12/25/18 at 07:48; Stop 12/25/18 at 07:49; Status DC Glucose (Insta-Glucose) 15 gm STK-MED ONCE .ROUTE ; Start 12/25/18 at 08:31; Stop 12/25/18 at 08:32; Status DC Active Scripts Active Keflex (Cephalexin) 500 Mg Capsule 500 Mg PO QID 5 Days Reported Renvela (Sevelamer Carbonate) 800 Mg Tablet 2 Tab PO TID Amlodipine Besylate 5 Mg Tablet 10 Mg PO DAILY Docusate Sodium 100 Mg Capsule 1 Cap PO TID PRN PRN Ferrous Sulfate 325 Mg Tablet 1 Tab PO BIDAC Ondansetron Hcl 4 Mg Tablet 1 Tab PO PRN Q8HRS PRN Prednisone (Prednisone) 10 Mg Tablet 5 Mg PO DAILY Thiamine Hcl 100 Mg Tablet 100 Mg PO Pantoprazole Sodium 40 Mg Tablet.dr 1 Tab PO DAILY Tacrolimus 0.5 Mg Capsule 0.5 Mg PO DAILY Metoprolol Tartrate 50 Mg Tablet 3 Tab PO BID Novolog Flexpen (Insulin Aspart) 100 Unit/1 Ml Insuln.pen 22 Unit SQ AC SUPPER Novolog Flexpen (Insulin Aspart) 100 Unit/1 Ml Insuln.pen 18 Unit SQ AC LUNCH Novolog Flexpen (Insulin Aspart) 100 Unit/1 Ml Insuln.pen 10 Unit SQ AC BREAKFAST Levothyroxine Sodium 88 Mcg Tablet 1 Tab PO DAILY Atorvastatin Calcium 10 Mg Tablet 1 Tab PO DAILY Loratadine 10 Mg Tablet 1 Tab PO DAILY Hydrochlorothiazide Tablet (Hydrochlorothiazide) 25 Mg Tablet 25 Mg PO DAILY Men's Multivitamin Gummies (Folic Acid/Multivit-Minerals) 200 Mcg Tab.chew 200 Mcg PO Lantus (Insulin Glargine,Hum.rec.anlog) 100 Unit/1 Ml Vial 35 Unit SQ BID Alendronate Sodium 70 Mg Tablet 70 Mg PO WEEKLY Vitals/I & O Vital Sign - Last 24 Hours 12/24/18 12/24/18 12/24/18 12/24/18 19:21 20:00 21:24 21:41 Temp 98.1 98.1 Pulse 60 65 Resp 18 B/P (MAP) 131/51 (77) 142/50 Pulse Ox 100 100 O2 Delivery Nasal Cannula Nasal Cannula BiPAP/CPAP O2 Flow Rate 2.0 2.0 12/24/18 12/25/18 12/25/18 12/25/18 23:18 00:57 02:48 03:48 Temp 97.7 98.0 97.7 98.0 Pulse 57 52 Resp 20 20 B/P (MAP) 148/55 (86) 131/59 (83) Pulse Ox 99 100 98 O2 Delivery BiPAP/CPAP BiPAP/CPAP BiPAP/CPAP Nasal Cannula O2 Flow Rate 2.0 12/25/18 12/25/18 12/25/18 12/25/18 05:35 07:44 08:00 08:11 Temp 97.6 97.6 Pulse 71 71 Resp 20 B/P (MAP) 151/60 (90) 151/60 Pulse Ox 96 O2 Delivery BiPAP/CPAP Nasal Cannula Nasal Cannula O2 Flow Rate 2.0 2.0 12/25/18 12/25/18 12/25/18 08:11 10:31 14:49 Temp 97.9 97.6 97.9 97.6 Pulse 71 57 59 Resp 20 20 B/P (MAP) 151/60 127/82 (97) 103/59 (74) Pulse Ox 99 99 O2 Delivery Nasal Cannula Nasal Cannula O2 Flow Rate 2.0 2.0 Intake and Output 12/24/18 12/24/18 12/25/18 15:00 23:00 07:00 Intake Total 640 ml 760 ml Output Total 600 ml 350 ml Balance 640 ml 160 ml -350 ml FANG CRABTREE MD Dec 25, 2018 17:33
[2018-12-25 19:30] VITALS: BP 154/56
[2018-12-25] MEDS: FAMOTIDINE 20 MG TABLET. PO SCH (20:28)
[2018-12-25] MEDS: INSULIN GLARGINE 300 UNITS/3 ML INSULN.PEN. SQ SCH (21:00)
[2018-12-25 23:36] VITALS: BP 150/49
--- NOTE | 2018-12-26 01:30 | NUR ---
Assumed care of patient at this time, no new complaints or concerns. Assessment as documented.
[2018-12-26 03:38] VITALS: BP 144/53
[2018-12-26] MEDS: PANTOPRAZOLE 40 MG TABLET.DR. PO SCH (06:17)
[2018-12-26] MEDS: LEVOTHYROXINE 88 MCG TABLET PO SCH (06:17)
[2018-12-26 07:00] VITALS: BP 140/48
[2018-12-26] MEDS: INSULIN LISPRO 300 UNITS/3 ML INSULN.PEN. SQ SCH ×2 (08:00→12:00)
[2018-12-26] MEDS: METOPROLOL TART IMMED RELEASE 50 MG TABLET. PO SCH (09:00)
[2018-12-26] MEDS: NYSTATIN TOPICAL POWDER 15GM BOTTLE. TP SCH (09:00)
--- NOTE | 2018-12-26 09:11 | PDOC ---
PULMONARY PROGRESS NOTES Subjective PT BETTER WANTS TO GO HOME Vitals Vital Signs Date Time Temp Pulse Resp B/P (MAP) Pulse Ox O2 Delivery O2 Flow Rate FiO2 12/26/18 07:00 97.4 59 20 140/48 (78) 93 Nasal Cannula 2.0 97.4 ROS: No Nausea, No Chest Pain, No Abdominal Pain, No Increase Cough General: Alert, No acute distress Lungs: Crackles Cardiovascular: S1, S2 Abdomen: Soft, Other Extremities: Other Labs Laboratory Tests Test 12/24/18 11:45 12/24/18 13:43 12/24/18 17:02 12/24/18 17:37 Glucose (Fingerstick) 52 mg/dL (70-99) 84 mg/dL (70-99) 40 mg/dL (70-99) 69 mg/dL (70-99) Test 12/25/18 00:30 12/25/18 01:42 12/25/18 07:27 12/25/18 08:09 Glucose (Fingerstick) 54 mg/dL (70-99) 67 mg/dL (70-99) 38 mg/dL (70-99) 35 mg/dL (70-99) Test 12/25/18 08:51 12/25/18 09:35 12/25/18 10:46 12/25/18 11:37 Glucose (Fingerstick) 69 mg/dL (70-99) 89 mg/dL (70-99) 83 mg/dL (70-99) Sodium Level 142 mmol/L (136-145) Potassium Level 4.5 mmol/L (3.5-5.1) Chloride Level 105 mmol/L (98-107) Carbon Dioxide Level 28 mmol/L (21-32) Anion Gap 9 (6-14) Blood Urea Nitrogen 19 mg/dL (8-26) Creatinine 2.4 mg/dL (0.7-1.3) Estimated GFR (Cockcroft-Gault) 26.5 Glucose Level 200 mg/dL (70-99) Calcium Level 8.9 mg/dL (8.5-10.1) Test 12/25/18 16:24 12/25/18 20:50 12/26/18 07:41 Glucose (Fingerstick) 102 mg/dL (70-99) 100 mg/dL (70-99) 70 mg/dL (70-99) Laboratory Tests Test 12/25/18 09:35 12/25/18 10:46 12/25/18 11:37 12/25/18 16:24 Glucose (Fingerstick) 89 mg/dL (70-99) 83 mg/dL (70-99) 102 mg/dL (70-99) Sodium Level 142 mmol/L (136-145) Potassium Level 4.5 mmol/L (3.5-5.1) Chloride Level 105 mmol/L (98-107) Carbon Dioxide Level 28 mmol/L (21-32) Anion Gap 9 (6-14) Blood Urea Nitrogen 19 mg/dL (8-26) Creatinine 2.4 mg/dL (0.7-1.3) Estimated GFR (Cockcroft-Gault) 26.5 Glucose Level 200 mg/dL (70-99) Calcium Level 8.9 mg/dL (8.5-10.1) Test 12/25/18 20:50 12/26/18 07:41 Glucose (Fingerstick) 100 mg/dL (70-99) 70 mg/dL (70-99) Medications Active Scripts Medications Dose Route/Sig Max Daily Dose Days Date Category Amlodipine Besylate 5 Mg Tablet 10 Mg PO DAILY 06/22/17 Reported Docusate Sodium 100 Mg Capsule 1 Cap PO TID PRN PRN 06/22/17 Reported Ferrous Sulfate 325 Mg Tablet 1 Tab PO BIDAC 06/22/17 Reported Ondansetron Hcl 4 Mg Tablet 1 Tab PO PRN Q8HRS PRN 06/22/17 Reported Prednisone (Prednisone) 10 Mg Tablet 5 Mg PO DAILY 06/22/17 Reported Thiamine Hcl 100 Mg Tablet 100 Mg PO 06/22/17 Reported Pantoprazole Sodium 40 Mg Tablet.dr 1 Tab PO DAILY 06/22/17 Reported Tacrolimus 0.5 Mg Capsule 0.5 Mg PO DAILY 06/22/17 Reported Metoprolol Tartrate 50 Mg Tablet 3 Tab PO BID 06/22/17 Reported Keflex (Cephalexin) 500 Mg Capsule 500 Mg PO QID 5 06/30/15 Rx Novolog Flexpen (Insulin Aspart) 100 Unit/1 Ml Insuln.pen 22 Unit SQ AC SUPPER 06/26/15 Reported Novolog Flexpen (Insulin Aspart) 100 Unit/1 Ml Insuln.pen 18 Unit SQ AC LUNCH 06/26/15 Reported Novolog Flexpen (Insulin Aspart) 100 Unit/1 Ml Insuln.pen 10 Unit SQ AC BREAKFAST 06/26/15 Reported Levothyroxine Sodium 88 Mcg Tablet 1 Tab PO DAILY 06/24/15 Reported Atorvastatin Calcium 10 Mg Tablet 1 Tab PO DAILY 06/24/15 Reported Loratadine 10 Mg Tablet 1 Tab PO DAILY 06/24/15 Reported Hydrochlorothiazide Tablet (Hydrochlorothiazide) 25 Mg Tablet 25 Mg PO DAILY 06/24/15 Reported Pepcid Ac (Famotidine) 20 Mg Tablet 20 Mg PO HS 06/24/15 Reported Men's Multivitamin Gummies (Folic Acid/Multivit-Minerals) 200 Mcg Tab.chew 200 Mcg PO 06/24/15 Reported Lantus (Insulin Glargine,Hum.rec.anlog) 100 Unit/1 Ml Vial 70 Unit SQ QHS 06/24/15 Reported Alendronate Sodium 70 Mg Tablet 70 Mg PO WEEKLY 06/24/15 Reported Impression . IMPRESSION: 1. Acute hypoxemic respiratory failure. 2. Acute on chronic diastolic heart failure. 3. Abnormal x-ray revealing small bilateral effusions. 4. Suspect severe secondary pulmonary hypertension. 5. Morbid obesity. 6. Obstructive sleep apnea. 7. Chronic lower extremity lymphedema. 8. End-stage renal disease, status post renal transplant. Plan . HOME TODAY HOME BIPAP DIURESE FOLLOW UP WITH ME NEEDED GAVE PT MY BUS CARD SHARATH VALLE MD Dec 26, 2018 09:11
[2018-12-26] MEDS: TACROLIMUS 0.5 MG CAPSULE PO SCH (09:50)
[2018-12-26] MEDS: azaTHIOprine 50 MG TABLET PO SCH (09:51)
[2018-12-26] MEDS: amLODIPine BESYLATE 10 MG TABLET PO SCH (09:53)
[2018-12-26] MEDS: FERROUS SULFATE 325 MG TABLET. PO SCH (09:53)
[2018-12-26] MEDS: ATORVASTATIN CALCIUM 10 MG TABLET. PO SCH (09:53)
[2018-12-26] MEDS: CETIRIZINE HCL 10 MG TABLET. PO SCH (09:53)
[2018-12-26] MEDS: predniSONE 5 MG TABLET PO SCH (09:53)
[2018-12-26] MEDS: hydroCHLOROthiazide 25 MG TABLET PO SCH (09:53)
[2018-12-26] MEDS: ASPIRIN CHEWABLE 81 MG TABLET. PO SCH (09:54)
[2018-12-26] MEDS: HEPARIN for SUB-Q USE 5,000 UNIT/ML VIAL. SQ SCH (10:00)
[2018-12-26 11:13] VITALS: BP 140/52
--- NOTE | 2018-12-26 11:34 | SNU/HH DC ---
DISCHARGE WITH HOME HEALTH DISCHARGE INFORMATION: Final Diagnosis: Problems Medical Problems: (1) Dyspnea Status: Acute (2) Pulmonary edema Status: Acute Condition on Discharge: Stable CODE STATUS: Code Status: Full HOME HEALTH: Face to Face: I certify this patient is under my care and that I, or a nurse practitioner or physician's photographer assistant working with me, had a face to face encounter that meets the physician face to face encounter requirements with this patient on []. Medical Complications: CHF Correction For: Admin/Educate Injections RN For Eval/Treatment: Yes Physical Therapy For: Evalulation/Treatment Occupational Therapy For: Evaluation/Treatment Home Health Aide For: Self-care MANAGER SQL For: Community Resources Pt Meets Homebound Status: Poor coordination w/ amb. POST DISCHARGE ORDERS: Activity Instructions for Disc: Activity as tolerated DIET AFTER DISCHARGE: Cardiac CHECKS AFTER DISCHARGE: Checks after discharge: Check blood press - daily CERTIFICATION STATEMENT: Certification Statement: Certification Statement: Based on the above finding, I certify that this patient is confined to the home and needs intermittent shelter care, physical therapy and/or speech therapy, or continues to need occupational therapy.~ This patient is under my care, and I have initiated the establishment of the plan of care.~ This patient will be followed by myself or a community physician who will periodically review the plan of care. Home Meds Active Scripts Cephalexin (KEFLEX) 500 Mg Capsule, 500 MG PO QID for 5 Days, CAP 0 Refills Prov:MADELAINE ANDREA MD 06/30/15 Reported Medications Sevelamer Carbonate (RENVELA) 800 Mg Tablet, 2 TAB PO TID for phosphate binder, #540 TAB 3 Refills 12/24/18 Amlodipine Besylate (AMLODIPINE BESYLATE) 5 Mg Tablet, 10 MG PO DAILY, TAB 06/22/17 Docusate Sodium (DOCUSATE SODIUM) 100 Mg Capsule, 1 CAP PO TID PRN PRN for CONSTIPATION, #30 CAP 06/22/17 Ferrous Sulfate (FERROUS SULFATE) 325 Mg Tablet, 1 TAB PO BIDAC, #30 TAB 3 Refills 06/22/17 Ondansetron Hcl (ONDANSETRON HCL) 4 Mg Tablet, 1 TAB PO PRN Q8HRS PRN for NAUSEA/VOMITING, #10 TAB 1 Refill 06/22/17 Prednisone (PREDNISONE ) 10 Mg Tablet, 5 MG PO DAILY, TAB 06/22/17 Thiamine Hcl (THIAMINE HCL) 100 Mg Tablet, 100 MG PO, TAB 06/22/17 Pantoprazole Sodium (PANTOPRAZOLE SODIUM) 40 Mg Tablet.dr, 1 TAB PO DAILY, #30 TAB 3 Refills 06/22/17 Tacrolimus (TACROLIMUS) 0.5 Mg Capsule, 0.5 MG PO DAILY, CAP 06/22/17 Metoprolol Tartrate (METOPROLOL TARTRATE) 50 Mg Tablet, 3 TAB PO BID, #60 TAB 5 Refills 06/22/17 Insulin Aspart (NOVOLOG FLEXPEN) 100 Unit/1 Ml Insuln.pen, 22 UNIT SQ AC supper, SYR 06/26/15 Insulin Aspart (NOVOLOG FLEXPEN) 100 Unit/1 Ml Insuln.pen, 18 UNIT SQ AC lunch, SYR 06/26/15 Insulin Aspart (NOVOLOG FLEXPEN) 100 Unit/1 Ml Insuln.pen, 10 UNIT SQ AC breakfast, SYR 06/26/15 Levothyroxine Sodium (LEVOTHYROXINE SODIUM) 88 Mcg Tablet, 1 TAB PO DAILY, #30 TAB 5 Refills 06/24/15 Atorvastatin Calcium (ATORVASTATIN CALCIUM) 10 Mg Tablet, 1 TAB PO DAILY, #30 TAB 5 Refills 06/24/15 Loratadine (LORATADINE) 10 Mg Tablet, 1 TAB PO DAILY, #30 TAB 5 Refills 06/24/15 Hydrochlorothiazide (HYDROCHLOROTHIAZIDE TABLET ) 25 Mg Tablet, 25 MG PO DAILY for DIURETIC, TAB 0 Refills 06/24/15 Folic Acid/Multivit-Minerals (Men's Multivitamin Gummies) 200 Mcg Tab.chew, 200 MCG PO, TAB.CHEW 06/24/15 Insulin Glargine,Hum.rec.anlog (LANTUS) 100 Unit/1 Ml Vial, 35 UNIT SQ BID for blood sugars, VIAL 06/24/15 Alendronate Sodium (ALENDRONATE SODIUM) 70 Mg Tablet, 70 MG PO WEEKLY, TAB 06/24/15 Discontinued Reported Medications Famotidine (PEPCID AC) 20 Mg Tablet, 20 MG PO HS, TAB 06/24/15 Azathioprine (AZATHIOPRINE) 50 Mg Tablet, 4 TAB PO DAILY, #30 TAB 3 Refills 06/22/17 Haloperidol (HALOPERIDOL) 0.5 Mg Tablet, 0.25 MG PO PRN Q8HRS PRN for ANXIETY / AGITATION, TAB 06/22/17 Tacrolimus (TACROLIMUS) 1 Mg Capsule, 1 MG PO BID 06/24/15 Aspirin (ASPIRIN) 81 Mg Tab.chew, 1 TAB PO DAILY, #30 TAB 3 Refills 06/24/15 KASSIE COKER III DO Dec 26, 2018 11:34
--- NOTE | 2018-12-26 11:41 | PDOC ---
SUBJECTIVE ROS Stable, states feeling better OBJECTIVE Vital Signs Vital Signs Date Time Temp Pulse Resp B/P (MAP) Pulse Ox O2 Delivery O2 Flow Rate FiO2 12/26/18 11:30 Nasal Cannula 2.0 12/26/18 11:13 97.3 58 18 140/52 (81) 93 97.3 I & 0 Intake and Output 12/26/18 07:00 Intake Total 1100 ml Output Total 1075 ml Balance 25 ml Intake Oral 1100 ml Output Urine Total 1075 ml PHYSICAL EXAM Physical Exam General: Sitting up in bed , Morbidly obese HEENT: OM moist , On o2 by NC Neck: Supple Lungs: CTA, Coarse CV RRR Abdomen: Soft obese, No transplant tenderness RtLQ Extremities: Changes of CVI present Skin: No rashes Neuro: Grossly normal - No hinojosa DIAGNOSIS/ASSESSMENT Assessment & Plan CKD stage 3- 4- per [facility] records Follows with nephrology as OP(not with our Group) Renal function appears to be stable, E-Lytes stable, UA unremarkable daily standing weight(Not recorded) Supportive care Renal transplant- On prednisone and tacrolimus Continue Acute on chronic shortness of breath Acute on chronic systolic HF; CXR with vascular congestion Diuresis Cautiously Cardiomyopathy; Echo at 08/2018 LVEF 40-45% PAFIB; ASA for stroke prevention. Recent GI bleed at 08/2018 Pleural effusion, recurrent DM2, on insulin BS 76- Holding Insulin,follow up with PCP Morbid obesity, BMI 54, with moderate hypoalbuminemia, malnutrition PAD s/p left BKA [place]- On CPAP Follow with his [employer] Machine/PCP and Cardiology post Dc COMMENT/RELEVANT DATA Meds Current Medications Medications (Trade) Dose Ordered Sig/Ivett Start Time Stop Time Status Last Admin Dose Admin Amlodipine Besylate (Norvasc) 10 mg DAILY 12/24/18 09:00 12/26/18 09:53 10 MG Aspirin (Children'S Aspirin) 81 mg DAILY08 12/24/18 08:00 12/26/18 09:54 81 MG Atorvastatin Calcium (Lipitor) 10 mg DAILY 12/24/18 09:00 12/26/18 09:53 10 MG Azathioprine (Imuran) 200 mg DAILY 12/24/18 09:00 12/26/18 09:51 200 MG Cetirizine HCl (ZyrTEC) 10 mg DAILY 12/24/18 09:00 12/26/18 09:53 10 MG Dextrose (Dextrose 50%-Water Syringe) 25 gm STK-MED ONCE 12/25/18 07:28 12/25/18 07:29 DC Docusate Sodium (Colace) 100 mg TID PRN PRN 12/23/18 18:45 12/25/18 08:12 100 MG Famotidine (Pepcid) 20 mg HS 12/23/18 21:00 12/25/18 20:28 20 MG Ferrous Sulfate (Feosol) 325 mg BIDAC 12/24/18 07:30 12/26/18 09:53 325 MG Furosemide (Lasix) 40 mg 1X ONCE 12/24/18 16:00 12/24/18 16:01 DC 12/24/18 16:25 40 MG Glucose (Insta-Glucose) 15 gm STK-MED ONCE 12/25/18 08:31 12/25/18 08:32 DC Haloperidol Lactate (HALDOL 2mg ORAL CONC) 0.25 mg PRN Q8HRS PRN 12/23/18 19:00 Heparin Sodium (Porcine) (Heparin Sodium) 5,000 unit BID 12/24/18 09:00 12/26/18 10:00 5,000 UNIT Hydrochlorothiazide (Hydrodiuril) 25 mg DAILY 12/24/18 09:00 12/26/18 09:53 25 MG Insulin Glargine (Lantus) 70 units QHS 12/23/18 21:00 12/23/18 21:21 70 UNITS Insulin Human Lispro (HumaLOG) 22 units DAILYWSUP 12/24/18 17:00 Levothyroxine Sodium (Synthroid) 88 mcg DAILY07 12/24/18 07:00 12/26/18 06:17 88 MCG Metoprolol Tartrate (Lopressor) 150 mg BID 12/23/18 21:00 12/25/18 20:28 150 MG Nystatin (Nystop) 1 ana BID 12/24/18 21:00 12/26/18 09:00 1 ANA Ondansetron HCl (Zofran Odt) 4 mg PRN Q8HRS PRN 12/23/18 19:00 Pantoprazole Sodium (Protonix) 40 mg DAILY07 12/24/18 07:00 12/26/18 06:17 40 MG Prednisone (Prednisone) 5 mg DAILY 12/24/18 09:00 12/26/18 09:53 5 MG Tacrolimus (Prograf) 1 mg BID 12/23/18 21:00 12/26/18 09:50 1 MG Lab Laboratory Tests Test 12/25/18 16:24 12/25/18 20:50 12/26/18 07:41 Glucose (Fingerstick) 102 mg/dL (70-99) 100 mg/dL (70-99) 70 mg/dL (70-99) Results All relevant outside records, renal labs, imaging studies, telemetry/EKG's were reviewed. RASHAAD KELLY MD Dec 26, 2018 11:41
--- NOTE | 2018-12-26 11:57 | PDOC ---
CARDIO Progress Notes Date and Time Date of Service 12/26/18 Time of Evaluation 1215 Subjective Subjective: No Chest Pain, Other (breathing better) Vitals Vitals Vital Signs Date Time Temp Pulse Resp B/P (MAP) Pulse Ox O2 Delivery O2 Flow Rate FiO2 12/26/18 11:30 Nasal Cannula 2.0 12/26/18 11:13 97.3 58 18 140/52 (81) 93 97.3 Weight Weight [ ] Input and Output Intake and Output Intake and Output 12/26/18 06:59 Intake Total 1100 ml Output Total 1075 ml Balance 25 ml Intake Oral 1100 ml Output Urine Total 1075 ml Laboratory Labs Laboratory Tests Test 12/25/18 16:24 12/25/18 20:50 12/26/18 07:41 12/26/18 11:41 Glucose (Fingerstick) 102 mg/dL (70-99) 100 mg/dL (70-99) 70 mg/dL (70-99) 76 mg/dL (70-99) Microbiology Micro Microbiology 12/23/18 Blood Culture - Preliminary, Resulted NO GROWTH AFTER 2 DAYS Physical Exam Chest: Symmetric LUNGS: Clear to Auscultation Heart: S1S2, irregularly irregular Abdomen: Soft N/T Extremities: Other (left BKA, venous statis changes to RLE) Neurology: alert, oriented, follow commands Assessment Assessment 1. Acute respiratory failure; multifactorial. improved 2. Acute on chronic systolic HF; better compensated following diuresis 3. Cardiomyopathy; Echo at 08/2018 LVEF 40-45%. Repeat echo here with EF unchanged 4. PAFIB; ASA for stroke prevention. Recent GI bleed at 08/2018 5. Bradycardia; HR near 50. 6. Hypertension; better controlled 7. Hyperlipidemia; statin 8. Diabetes, II 9. CKD s/p real transplant; on Prograf 10. PAD s/p left BKA 11. Morbid obesity, BEVERLY with CPAP Recommendations Decrease metoprolol to 50g BID (patient's home dose verified by pharmacy and ) Secondary prevention; ASA, statin, BB ASA for stroke prevention; poor candidate for OAC given GI bleed 08/2018 Supportive care May discharge from a CV standpoint and f/u in our office in 4 weeks. SONJA MINAYA APRN Dec 26, 2018 11:57
--- NOTE | 2018-12-26 12:46 | NUR ---
I am unable to complete in discharge medications list, as Dr. Ibanez has already finalized, however. Metoprolol will be changed to the 50 mg ER, BID per discussion with cardiology. We have been holding doses here because of bradycardia. Dr. Ibanez notified and ok with this. Also, we have been holding Insulin as we corrected low sugar yesterday in the 50's. Glucose today is 70's and this is with no insulin. Ok to stop Insulin at this time when going home and is to follow up with his primary care. I will update family and write this on his packet, since I cannot undo in the computer for his printed copy.
--- NOTE | 2018-12-26 13:09 | NUR ---
Son at bedside, reviewed discharge information with him. Dr. Meyer recommends his getting a pulse ox to keep an eye on his oxygen level at home. Patient said he had been told to wear oxygen a year ago, but was not using it, so no longer has a tank at home. Has been on 2 Li here, when I initially checked it on RA was in 80's, patient practiced his breathing and in a few minutes had it up to 94%. No further questions for me at this time. Going home in .
--- NOTE | 2018-12-26 13:13 | NUR ---
SW phoned and faxed resumption orders to [facility]. 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
--- NOTE | 2018-12-26 20:37 | DS ---
DATE OF DISCHARGE: 12/26/2018 ADMISSION DIAGNOSES: Respiratory failure with congestive heart failure, congestive heart failure, obstructive sleep apnea, obesity. DISCHARGE DIAGNOSIS: Resolving respiratory failure. HOSPITAL COURSE: The patient is a pleasant 73-year-old male who is morbidly obese. He also has a [id number] amputation. He has got a large umbilical hernia and he is on CPAP at home. Basically, he presented with shortness of breath and worsening heart failure and hypoxia. We admitted him. We consulted Pulmonary and Cardiology. We diuresed him, gave him some breathing treatments and oxygen and over the past couple of days, he has returned to baseline. We plan to discharge to home with home health. PHYSICAL EXAMINATION: I did see him and examine him this morning. HEART: Tones were normal. LUNGS: Much clearer. ABDOMEN: Soft and obese, which is his baseline. ENDOCRINE: No thyromegaly. PSYCHIATRIC: He was stable. DISPOSITION: Home with home health. ACTIVITY: As tolerated. DIET: Low sodium. MEDICATIONS: Please see the MRAD. TOTAL TIME: 34 minutes. KASSIE COKER DO DR: FAIZA/miriam JOB#: [id number] / [id number]
[2018-12-26] MEDS ORDERED: METOPROLOL TART IMMED RELEASE 50 MG TABLET. PO SCH (21:00)
== END 2018-12-26 13:15 | disposition home health service (06) | DRG 291 ==
LOC: ER 13:29 → 6 SOUTH 15:40
PROVIDERS: ADMIT Internal Medicine; ATTEND Internal Medicine
PROC: 5A09357 Assistance with Respiratory Ventilation, Less than 24 Consecutive Hours, Continuous Positive Airway Pressure (ICD-10-PCS; principal; 2018-12-23)
PROC: 5A09357 Assistance with Respiratory Ventilation, Less than 24 Consecutive Hours, Continuous Positive Airway Pressure (ICD-10-PCS; 2018-12-24)
PROC: 5A09357 Assistance with Respiratory Ventilation, Less than 24 Consecutive Hours, Continuous Positive Airway Pressure (ICD-10-PCS; 2018-12-25)
DX: I13.0 Hypertensive heart and chronic kidney disease with heart failure and stage 1 through stage 4 chronic kidney disease, or unspecified chronic kidney disease (principal); J96.01 Acute respiratory failure with hypoxia; E43 Unspecified severe protein-calorie malnutrition; I50.43 Acute on chronic combined systolic (congestive) and diastolic (congestive) heart failure; N18.4 Chronic kidney disease, stage 4 (severe); Z94.0 Kidney transplant status; Z68.41 Body mass index [BMI] 40.0-44.9, adult; I42.9 Cardiomyopathy, unspecified; E66.01 Morbid (severe) obesity due to excess calories; E11.22 Type 2 diabetes mellitus with diabetic chronic kidney disease; B95.62 Methicillin resistant Staphylococcus aureus infection as the cause of diseases classified elsewhere; E03.9 Hypothyroidism, unspecified; E11.51 Type 2 diabetes mellitus with diabetic peripheral angiopathy without gangrene; E78.5 Hyperlipidemia, unspecified; G47.33 Obstructive sleep apnea (adult) (pediatric); I48.0 Paroxysmal atrial fibrillation; I89.0 Lymphedema, not elsewhere classified; K42.9 Umbilical hernia without obstruction or gangrene; M81.0 Age-related osteoporosis without current pathological fracture; Z79.4 Long term (current) use of insulin; Z79.52 Long term (current) use of systemic steroids; Z89.512 Acquired absence of left leg below knee; Z85.820 Personal history of malignant melanoma of skin; Z83.3 Family history of diabetes mellitus
CPT/HCPCS: 36415; 71045; 80048; 80053; 80061; 81001; 82962; 83036; 83605; 83880; 84443; 84484; 85025; 87040; 87641; 93005; 93306; 94660; J1644; J1815; J1940; J7500; J7507; J7512; 99285-25

== ENCOUNTER → 2019-07-22 | Outpatient (CLI) | payer MEDICARE ==
[~2019-07-22] MED LIST changes: +ONDA-84 PO; -ONDA4TAB11 PO; -PANT40TA5 PO; +PANT40TA77 PO; +SEVE800T9 PO
--- NOTE | 2019-07-22 13:31 | RAD ---
Complete abdominal ultrasound 07/22/2019 11:00 AM Clinical History: Elevated liver enzymes Technique: Ultrasound examination of the abdomen was performed, and multiple static images were submitted for review. Comparison: CT of the abdomen and pelvis May 25, 2017. Findings: Exam is limited by patient body habitus. The pancreas is poorly visualized. The gallbladder appears to be contracted, and is somewhat poorly visualized. Cholelithiasis appears to be present. The liver is normal in size measuring 16 cm longitudinally. The common bile duct is top normal for age at 6 mm. There are 2 masses seen in the right renal fossa. These measure 5 cm 3.5 cm respectively. These are somewhat poorly visualized, but likely relate to the pala kidney as this was seen on CT scan from May 2017. There is a transplanted kidney in the right pelvis without hydronephrosis, nephrolithiasis, or focal renal lesion. Transplant kidney measures 12 cm x 5.5 cm x 6.2 cm. Visualized portions of the aorta and IVC demonstrate no gross abnormality. Bilateral pleural effusions noted. The spleen is enlarged measuring 15 cm longitudinally. Left kidney is not visualized. IMPRESSION: 1. Limited study 2. 2 masses seen in the right renal fossa measuring approximately 5 cm and 3.5 cm respectively. Likely relating to the pala kidney, is a relatively similar appearance is seen on CT from May 2017. Evaluation is limited on today's study. 3. Splenomegaly 4. Contracted gallbladder with possible cholelithiasis. 5. Right pelvic transplant kidney. 6. Echogenic mass in the right liver measuring 2.3 cm in diameter likely hemangioma, characterization however is incomplete. Consider contrast enhanced CT or MRI if/when clinically feasible 7. Bilateral pleural effusions. Electronically signed by: Christopher Traore MD (07/22/2019 1:29 PM) [id number]
== END | disposition home or self-care (01) ==
LOC: US 10:49
PROVIDERS: ATTEND Family Medicine
DX: N28.89 Other specified disorders of kidney and ureter (principal); R16.1 Splenomegaly, not elsewhere classified; J90 Pleural effusion, not elsewhere classified
CPT/HCPCS: 76700

== ENCOUNTER 2019-07-31 18:11 | Inpatient (IN) | payer OTHER ==
[~2019-07-31] VITALS: Ht 180.3 cm; Wt 140.2 kg
[2019-07-31] MEDS ORDERED: PROCHLORPERAZINE 25 MG SUPP.RECT. PR PRN (18:45)
[2019-07-31] MEDS ORDERED: BISACODYL 10 MG SUPP.RECT. PR PRN (18:45)
[2019-07-31] MEDS ORDERED: ONDANSETRON PF 4 MG/2 ML VIAL. IVP PRN (18:45)
[2019-07-31] MEDS ORDERED: hydrALAZINE 20 MG/ML VIAL. IVP PRN (18:45)
[2019-07-31] MEDS ORDERED: VITS A & D/LANOLIN TOPICAL OINTMENT 42GM TUBE. TP PRN (18:45)
[2019-07-31] MEDS ORDERED: MORPHINE SULFATE 20 MG/ML CONC SOLUTION. SL PRN (18:45)
[2019-07-31] MEDS ORDERED: SCOPOLAMINE 1.5MG PATCH. TD SCH (19:00)
[2019-07-31 20:00] VITALS: BP 133/56
[2019-07-31] MEDS: MORPHINE SULFATE 20 MG/ML CONC SOLUTION. SL PRN (23:09)
[2019-08-01] MEDS: MORPHINE SULFATE 20 MG/ML CONC SOLUTION. SL PRN ×3 (03:38→09:35)
[2019-08-01 08:00] VITALS: BP 73/43
--- NOTE | 2019-08-01 09:58 | NUR ---
IP: Due to mrsa in [place], pt is to remain in contact precautions.
[2019-08-01] MEDS: MORPHINE SULFATE 20 MG/ML CONC SOLUTION. SL SCH ×3 (16:57→23:18)
--- NOTE | 2019-08-01 18:45 | PDOC1 ---
History and Physical Date of Admission Date of Admission 08/01/2019 Identification/Chief Complaint Chief Complaint Hospice care Source Source: Chart review History of Present Illness History of Present Illness 74-year-old male with past medical history of diabetes and kidney failure is presenting via EMS for altered mental status and respiratory distress. EMS states that family called for altered mental status and when they arrived the patient was GCS 7 or 8, taking spontaneous respirations they began to bag assist the patient the patient satting at 98-100 on transport, glucose of 122. EMS states that family were poor historians. Left basal ganglia lacunar infarcts were diagnosed on imaging studies he also presented code blue due to GI bleed Degenerative changes of cervical spine. due to his multiple Medical issues on this admission which include Acute respiratory failure, pneumonia, congestive heart failure, lactic acidosis, sepsis, urinary tract infection, gram-positive cocci bacteremia, elevated troponin, permanent atrial fibrillation, renal insufficiency status post renal transplant, labile hypertension, diabetes, patient had a very poor prognosis, family members were informed of this and they opted to transition to a palliative care treatment plan Past Medical History Cardiovascular: AFIB, HTN, Other Pulmonary: Pneumonia, Other CENTRAL NERVOUS SYSTEM: Periperal neuropathy GI: GERD, GI bleed Heme/Onc: No pertinent hx Hepatobiliary: No pertinent hx Psych: No pertinent hx Renal/: Acute renal failure Endocrine: Diabetes, Hypothyroidism, Osteoporosis Past Surgical History Past Surgical History: Other Family History Family History: Diabetes, Hypertension Social History ALCOHOL: none Drugs: None Current Medications Current Medications Current Medications Medications (Trade) Dose Ordered Sig/Ivett Start Time Stop Time Status Last Admin Dose Admin Bisacodyl (Dulcolax Supp) 10 mg PRN DAILY PRN 07/31/19 18:45 Hydralazine HCl (Apresoline Inj) 10 mg PRN Q4HRS PRN 07/31/19 18:45 Lorazepam (Ativan Inj) 0.5 mg PRN Q4HRS PRN 07/31/19 18:45 Morphine Sulfate (Roxanol Conc) 10 mg Q3H 08/01/19 17:00 08/01/19 16:57 10 MG Ondansetron HCl (Zofran) 4 mg PRN Q6HRS PRN 07/31/19 18:45 Prochlorperazine (Compazine) 25 mg PRN Q12HR PRN 07/31/19 18:45 Scopolamine (Transderm-Scop) 1 patch Q3DAYS 07/31/19 19:00 07/31/19 19:00 1 PATCH Vitamin A/Vitamin D (Vitamin A & D Ointment) 1 ana PRN Q1HR PRN 07/31/19 18:45 Allergies Allergies Allergies Coded Allergies Type Severity Reaction Last Updated Verified I S O L A T I O N *CONTACT* Allergy Unknown 07/30/19 Yes No Known Medication Allergies Allergy Unknown 07/30/19 Yes ROS Review of System unable to assess Physical Exam Physical Exam GEN.: No apparent distress. Alert and oriented. HEENT: Head is normocephalic, atraumatic NECK: Supple. LUNGS: Coarse to auscultation. HEART: RRR, S1, S2 present. Peripheral pulses intact ABDOMEN: Soft, nontender. Positive bowel sounds. EXTREMITIES: Without any cyanosis. NEUROLOGIC: sedated PSYCHIATRIC: uanble to assess SKIN: No ulcerations Vitals Vitals Vital Signs Date Time Temp Pulse Resp B/P (MAP) Pulse Ox O2 Delivery O2 Flow Rate FiO2 08/01/19 08:00 99.1 98 73/43 (53) 86 Nasal Cannula 1.0 99.1 07/31/19 20:00 15 VTE Prophylaxis Ordered VTE Prophylaxis Devices: Yes VTE Pharmacological Prophylaxi: Yes Assessment/Plan Assessment/Plan Left basal ganglial lacunar infarcts History of code blue due to GI bleed Degenerative changes of cervical spine. Acute respiratory failure, pneumonia, congestive heart failure, gram-positive cocci bacteremia, elevated troponin, permanent atrial fibrillation, renal insufficiency status post renal transplant, labile hypertension, diabetes Plan: Continue with supportive measures, palliative care with morphine for air hunger and anxiety scopolamine patch for secretions Reassurance provided to family member at bedside HELENA RODRIGUEZ MD Aug 01, 2019 18:45
[2019-08-01 20:00] VITALS: BP 131/66
[2019-08-02] MEDS: MORPHINE SULFATE 20 MG/ML CONC SOLUTION. SL SCH ×3 (02:00→08:35)
--- NOTE | 2019-08-02 07:44 | PDOC ---
PROGRESS NOTES Chief Complaint Chief Complaint Acute hypoxemic respiratory failure. NEW CVA Acute on chronic diastolic, systolic heart failure. Acute cor pulmonale. Morbid obesity. Likely pneumonia gram-negative high risk given his immunocompromised status/gram-positive. Diabetes. Metabolic toxic encephalopathy, present upon admission. 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 EMS states that family called for altered mental status and when they arrived the patient was GCS 7 or 8, taking spontaneous respirations they began to bag assist the patient the patient satting at 98-100 on transport, glucose of 122. EMS states that family were poor historians. Patient was intubated due to respiratory failure and large GI bleed. Left basal ganglia lacunar infarcts were diagnosed on imaging studies he also presented code blue due to GI bleed Due to his multiple Medical issues on this admission which include Acute respiratory failure, pneumonia, congestive heart failure, lactic acidosis, sepsis, urinary tract infection, gram-positive cocci bacteremia, elevated troponin, permanent atrial fibrillation, renal insufficiency status post renal transplant, labile hypertension, diabetes, patient had a very poor prognosis, family members were informed of this and they opted to transition to a palliative care treatment plan. He has been admitted to inpatient hospice 07/31/2019 after a terminal extubation on 07/30/19 per family wishes bedside. He has agonal breaths today, unresponsive. Vitals Vitals Vital Signs Date Time Temp Pulse Resp B/P (MAP) Pulse Ox O2 Delivery O2 Flow Rate FiO2 08/02/19 06:19 16 88 Nasal Cannula 3.0 08/01/19 20:00 97.9 87 131/66 (87) 97.9 Physical Exam General: No acute distress Heart: Regular rate, Normal S1, Normal S2 Lungs: Clear Abdomen: Normal bowel sounds Extremities: No clubbing Skin: No rashes Comment Review of Relevant I have reviewed the following items buzz (where applicable) has been applied. Medications Current Medications Scopolamine (Transderm-Scop) 1 patch Q3DAYS TD Last administered on 07/31/19at 19:00; Start 07/31/19 at 19:00 Morphine Sulfate (Roxanol Conc) 5 mg PRN Q3HRS PRN SL PAIN; Start 07/31/19 at 18:45 Morphine Sulfate (Roxanol Conc) 10 mg PRN Q3HRS PRN SL PAIN Last administered on 08/01/19at 09:35; Start 07/31/19 at 18:45; Stop 08/01/19 at 14:13; Status DC Vitamin A/Vitamin D (Vitamin A & D Ointment) 1 ana PRN Q1HR PRN TP SKIN PROTECTION; Start 07/31/19 at 18:45 Bisacodyl (Dulcolax Supp) 10 mg PRN DAILY PRN [place] CONSTIPATION; Start 07/31/19 at 18:45 Prochlorperazine (Compazine) 25 mg PRN Q12HR PRN [place] NAUSEA/VOMITING; Start 07/31/19 at 18:45 Ondansetron HCl (Zofran) 4 mg PRN Q6HRS PRN IVP NAUSEA/VOMITING; Start 07/31/19 at 18:45 Lorazepam (Ativan Inj) 0.5 mg PRN Q4HRS PRN IVP ANXIETY / AGITATION; Start 07/31/19 at 18:45 Hydralazine HCl (Apresoline Inj) 10 mg PRN Q4HRS PRN IVP ELEVATED BP, SEE COMMENTS; Start 07/31/19 at 18:45 Morphine Sulfate (Roxanol Conc) 10 mg Q3H SL Last administered on 08/02/19at 05:19; Start 08/01/19 at 17:00 Active Scripts Active Keflex (Cephalexin) 500 Mg Capsule 500 Mg PO QID 5 Days Reported Renvela (Sevelamer Carbonate) 800 Mg Tablet 2 Tab PO TID Amlodipine Besylate 5 Mg Tablet 10 Mg PO DAILY Docusate Sodium 100 Mg Capsule 1 Cap PO TID PRN PRN Ferrous Sulfate 325 Mg Tablet 1 Tab PO BIDAC Ondansetron Hcl 4 Mg Tablet 1 Tab PO PRN Q8HRS PRN Prednisone (Prednisone) 10 Mg Tablet 5 Mg PO DAILY Thiamine Hcl 100 Mg Tablet 100 Mg PO Pantoprazole Sodium (Pantoprazole Sodium) 40 Mg Tablet.dr 1 Tab PO DAILY Tacrolimus 0.5 Mg Capsule 0.5 Mg PO DAILY Metoprolol Tartrate 50 Mg Tablet 3 Tab PO BID Levothyroxine Sodium 88 Mcg Tablet 1 Tab PO DAILY Atorvastatin Calcium 10 Mg Tablet 1 Tab PO DAILY Loratadine 10 Mg Tablet 1 Tab PO DAILY Hydrochlorothiazide Tablet (Hydrochlorothiazide) 25 Mg Tablet 25 Mg PO DAILY Men's Multivitamin Gummies (Folic Acid/Multivit-Minerals) 200 Mcg Tab.chew 200 Mcg PO Alendronate Sodium 70 Mg Tablet 70 Mg PO WEEKLY Vitals/I & O Vital Sign - Last 24 Hours 08/01/19 08/01/19 08/01/19 08/01/19 08:00 08:00 20:00 20:10 Temp 99.1 97.9 99.1 97.9 Pulse 98 87 Resp 14 B/P (MAP) 73/43 (53) 131/66 (87) Pulse Ox 86 91 O2 Delivery Nasal Cannula Nasal Cannula Nasal Cannula Nasal Cannula O2 Flow Rate 3.0 1.0 1.0 3.0 08/01/19 08/01/19 08/01/19 08/02/19 20:14 21:14 23:18 00:18 Resp 20 19 20 19 Pulse Ox 91 88 O2 Delivery Nasal Cannula Nasal Cannula Nasal Cannula Nasal Cannula O2 Flow Rate 3.0 3.0 3.0 1.0 08/02/19 08/02/19 05:19 06:19 Resp 17 16 Pulse Ox 88 O2 Delivery Nasal Cannula Nasal Cannula O2 Flow Rate 3.0 3.0 Intake and Output 08/01/19 08/01/19 08/02/19 15:00 23:00 07:00 Intake Total 0 ml Balance 0 ml KARLEY WISDOM MD Aug 02, 2019 07:44
--- NOTE | 2019-08-02 09:34 | PDOC3 ---
Discharge Summary Visit Information Date of Admission: Jul 31, 2019 Date of Discharge: Aug 02, 2019 Admitting Diagnosis: Acute hypoxic respiratory failure Final Diagnosis Hypoxic respiratory failure Brief Hospital Course Allergies Allergies Coded Allergies Type Severity Reaction Last Updated Verified I S O L A T I O N *CONTACT* Allergy Unknown 07/30/19 Yes No Known Medication Allergies Allergy Unknown 07/30/19 Yes Vital Signs Vital Signs Date Time Temp Pulse Resp B/P (MAP) Pulse Ox O2 Delivery O2 Flow Rate FiO2 08/02/19 08:35 Nasal Cannula 3.0 08/02/19 06:19 16 88 08/01/19 20:00 97.9 87 131/66 (87) 97.9 Brief Hospital Course Mr Díaz is a 74-year-old male w/ PMHx diabetes, afib, HTN, GERD, GI bleeding, peripheral neuropathy, hypothyroidism, right BKA, and renal failure s/p renal transplant [facility], 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 EMS states that family called for altered mental status and when they arrived the patient was GCS 7 or 8, taking spontaneous respirations they began to bag assist the patient the patient satting at 98-100 on transport, glucose of 122. EMS states that family were poor historians. Patient was intubated due to respiratory failure and large GI bleed. Left basal ganglia lacunar infarcts were diagnosed on imaging studies he also presented code blue due to GI bleed Due to his multiple Medical issues on this admission which include Acute respiratory failure, pneumonia, congestive heart failure, lactic acidosis, sepsis, urinary tract infection, gram-positive cocci bacteremia, elevated tropon in, permanent atrial fibrillation, renal insufficiency status post renal transplant, labile hypertension, diabetes, patient had a very poor prognosis, family members were informed of this and they opted to transition to a palliative care treatment plan. He has been admitted to inpatient hospice 07/31/2019 after a terminal extubation on 07/30/19 per family wishes bedside. He has agonal breaths today, unresponsive. Called at 0852 for lack of respiratory activity noted by nursing staff. No cardiac activity or respiratory activity, no reflexes. Family comforted. Time of 0852 on 08/02/2019 Acute hypoxemic respiratory failure. NEW CVA Acute on chronic diastolic, systolic heart failure. Acute cor pulmonale. Morbid obesity. Likely pneumonia gram-negative high risk given his immunocompromised status/gram-positive. Diabetes. Metabolic toxic encephalopathy, present upon admission. 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 Greater than 30 minutes spent on d/c Discharge Information Condition at Discharge: / Disposition/Orders: Scheduled Alendronate Sodium (Alendronate Sodium) 70 Mg Tablet, 70 MG PO WEEKLY, (Reported) Entered as Reported by: ROSA HERNANDEZ on 06/24/152140 Amlodipine Besylate (Amlodipine Besylate) 5 Mg Tablet, 10 MG PO DAILY, (Reported) Entered as Reported by: LEIGHANN ART on 06/22/17 150 Atorvastatin Calcium (Atorvastatin Calcium) 10 Mg Tablet, 1 TAB PO DAILY, #30 Ref 5 (Reported) Entered as Reported by: ROSA HERNANDEZ on 06/24/152140 Cephalexin (Keflex) 500 Mg Capsule, 500 MG PO QID for 5 Days, Ref 0 Prescribed by: MADELAINE ANDREA on 06/30/15 1242 Ferrous Sulfate (Ferrous Sulfate) 325 Mg Tablet, 1 TAB PO BIDAC, #30 Ref 3 (Reported) Entered as Reported by: LEIGHANN ART on 06/22/17 150 Hydrochlorothiazide (Hydrochlorothiazide Tablet ) 25 Mg Tablet, 25 MG PO DAILY for DIURETIC, Ref 0 (Reported) Entered as Reported by: ROSA HERNANDEZ on 06/24/152140 Levothyroxine Sodium (Levothyroxine Sodium) 88 Mcg Tablet, 1 TAB PO DAILY, #30 Ref 5 (Reported) Entered as Reported by: ROSA HERNANDEZ on 06/24/152140 Loratadine (Loratadine) 10 Mg Tablet, 1 TAB PO DAILY, #30 Ref 5 (Reported) Entered as Reported by: ROSA HERNANDEZ on 06/24/152140 Metoprolol Tartrate (Metoprolol Tartrate) 50 Mg Tablet, 3 TAB PO BID, #60 Ref 5 (Reported) Entered as Reported by: LEIGHANN ART on 06/22/17 1508 Pantoprazole Sodium (Pantoprazole Sodium ) 40 Mg Tablet.dr, 1 TAB PO DAILY, #30 Ref 3 (Reported) Entered as Reported by: LEIGHANN ART on 06/22/17 150 Prednisone (Prednisone ) 10 Mg Tablet, 5 MG PO DAILY, (Reported) Entered as Reported by: LEIGHANN ART on 06/22/17 150 Sevelamer Carbonate (Renvela) 800 Mg Tablet, 2 TAB PO TID for phosphate binder, #540 Ref 3 (Reported) Entered as Reported by: Paulette Gurrola on 12/24/182042 Tacrolimus (Tacrolimus) 0.5 Mg Capsule, 0.5 MG PO DAILY, (Reported) Entered as Reported by: LEIGHANN ART on 06/22/17 150 Scheduled PRN Docusate Sodium (Docusate Sodium) 100 Mg Capsule, 1 CAP PO TID PRN PRN for CONSTIPATION, #30 (Reported) Entered as Reported by: LEIGHANN ART on 06/22/17 150 Ondansetron Hcl (Ondansetron Hcl) 4 Mg Tablet, 1 TAB PO PRN Q8HRS PRN for NAUSEA/VOMITING, #10 Ref 1 (Reported) Entered as Reported by: LEIGHANN ART on 06/22/17 150 Miscellaneous Medications Folic Acid/Multivit-Minerals (Men's Multivitamin Gummies) 200 Mcg Tab.chew, 200 MCG PO, (Reported) Entered as Reported by: ROSA HERNANDEZ on 06/24/152140 Thiamine Hcl (Thiamine Hcl) 100 Mg Tablet, 100 MG PO, (Reported) Entered as Reported by: LEIGHANN ART on 06/22/17 150 KARLEY WISDOM MD Aug 02, 2019 09:34
--- NOTE | 2019-08-02 11:15 | NUR ---
Note: Patient was independently assessed by 2 separate RN, Judy Gross, RN and Racquel Slade RN. Patient was pronounced at 0852. Family at the bedside. Patient was made presentable and family took their time. [facility] was notified. [facility] was called. Once family was ready and left home, post mortem care was preformed on patient. Patients Ralph catheter was discontinued. Central line was left in place. Patient body was tagged and placed in a body bag. [facility].
== END 2019-08-02 11:30 | disposition expired | DRG 871 ==
LOC: 5 SOUTH 18:11
PROVIDERS: ADMIT Internal Medicine; ATTEND Internal Medicine
DX: A41.9 Sepsis, unspecified organism (principal); G92 Toxic encephalopathy; I26.09 Other pulmonary embolism with acute cor pulmonale; I50.43 Acute on chronic combined systolic (congestive) and diastolic (congestive) heart failure; I63.9 Cerebral infarction, unspecified; J18.9 Pneumonia, unspecified organism; J96.01 Acute respiratory failure with hypoxia; I13.0 Hypertensive heart and chronic kidney disease with heart failure and stage 1 through stage 4 chronic kidney disease, or unspecified chronic kidney disease; I48.21 Permanent atrial fibrillation; N17.9 Acute kidney failure, unspecified; N39.0 Urinary tract infection, site not specified; B96.89 Other specified bacterial agents as the cause of diseases classified elsewhere; E03.9 Hypothyroidism, unspecified; E11.22 Type 2 diabetes mellitus with diabetic chronic kidney disease; E11.42 Type 2 diabetes mellitus with diabetic polyneuropathy; E66.01 Morbid (severe) obesity due to excess calories; M81.0 Age-related osteoporosis without current pathological fracture; N18.3 Chronic kidney disease, stage 3 (moderate); Z79.899 Other long term (current) drug therapy; Z82.49 Family history of ischemic heart disease and other diseases of the circulatory system; Z89.511 Acquired absence of right leg below knee; Z83.3 Family history of diabetes mellitus
CPT/HCPCS: G0378